=== PATIENT | female | born 1955 | race Caucasian/White ===

== ENCOUNTER 2020-10-06 14:25 | Outpatient (REF) | payer OTHER, SELFPAY ==
[2020-10-06 15:25] LABS: Anion Gap 11 (12-20); Blood Urea Nitrogen 15 mg/dL (9-16); Calcium 9.6 mg/dL (8.4-10.2); Carbon Dioxide 30 mmol/L (22-29); Chloride 96 mmol/L (96-108); Estimated Glomerular Filt Rate 56; Glucose Random 73 mg/dL (60-115); Potassium 4.4 mmol/L (3.3-5.1); Sodium 133 mmol/L (135-145)
[2020-10-06 16:08] LABS: Erythrocyte Sedimentation Rate 4 MM/HR (0-20)
== END 2020-10-06 14:26 | disposition home or self-care (01) ==
LOC: HO.LAB 14:25
PROVIDERS: PCP Student in an Organized Health Care Education/Training Program; Visit Provider Psychiatry & Neurology Neurology
DX: G43.109 Migraine with aura, not intractable, without status migrainosus (principal)
CPT/HCPCS: 36415; 80048; 85652

== ENCOUNTER 2020-10-20 10:45 | Outpatient (REF) | payer OTHER, SELFPAY ==
--- NOTE | ~2020-10-20 | MR_ITS ---
EXAMINATION: MR BRAIN WITHOUT AND WITH CONTRAST CLINICAL INFORMATION: 65-year-old with migraines with aura. COMPARISON: None TECHNIQUE: Multiplanar, multisequence MRI of the brain was obtained before and after the intravenous administration of 5.5 mL Gadavist. FINDINGS: Brain Volume: Normal for age. Structural: No malformations. Brain and Meninges: Scattered patchy zones of FLAIR/T2 signal hyperintensity are noted in the subcortical and deeper white matter of both cerebral hemispheres without restricted diffusion or abnormal enhancement, which are nonspecific findings but likely reflect zones of chronic microvascular ischemic white matter change. Probable chronic microvascular ischemic change also noted in the subinsular region on the left. DWI imaging demonstrates no restricted diffusion. Specifically, there is no evidence for recent or acute infarct. There are perivascular spaces at the level of the basal ganglia. Minimal chronic microvascular ischemic change in the subinsular white matter on the right. Nonspecific patchy subcortical FLAIR signal hyperintensity noted in the anterior left temporal lobe. No intracranial mass lesion, abnormal enhancement, space-occupying process, or mass effect. Gradient-echo imaging demonstrates no evidence for hemorrhage or hemosiderin staining. No extra-axial fluid collections. The cavernous sinuses enhance normally with a normal appearance to Meckel's caves and trigeminal fat pads. Ventricles and Subarachnoid Spaces: The ventricular system and subarachnoid spaces are consistent with mild volume loss consistent with the patient's age, without hydrocephalus. Mildly prominent perivascular spaces are noted in the cerebral white matter bilaterally. Orbital Structures: The visualized orbital structures are within normal limits within the limitations of the study. Vascular: Normal signal voids are noted in the visualized major intracranial vessels. There is minor mucosal thickening in the ethmoid complex. MR/MR head/brain wo/w con IMPRESSION: 1. Scattered probable chronic microvascular ischemic white matter changes in both cerebral hemispheres with no evidence for mass lesion, abnormal enhancement, space-occupying process, or mass effect. There is nonspecific patchy subcortical white matter T2 hyperintensity in the anterior left temporal lobe without mass effect of indeterminate etiology and clinical significance. 2. No evidence for hemorrhage or hemosiderin staining. 3. No evidence for hydrocephalus.
== END 2020-10-20 10:46 | disposition home or self-care (01) ==
LOC: HO.MRI 10:45
PROVIDERS: Visit Provider Psychiatry & Neurology Neurology
DX: G43.109 Migraine with aura, not intractable, without status migrainosus (principal)
CPT/HCPCS: 70553; A9585

== ENCOUNTER 2020-11-30 11:09 | Outpatient (REF) | payer OTHER, SELFPAY ==
--- NOTE | ~2020-11-30 | MM_ITS ---
EXAMINATION: MM SCREENING DIGITAL BREAST TOMOSYNTHESIS, BILATERAL CLINICAL INFORMATION: Screening. Asymptomatic. The lifetime risk of breast cancer based on the Tyrer-Cuzick Model is 12%. COMPARISON: Mammography: 07/24/2019, 07/18/2018, 06/23/2017 TECHNIQUE: Digital breast tomosynthesis is performed in both the craniocaudal and mediolateral oblique views along with computer-aided detection (CAD). Synthesized 2D images are generated from the tomosynthesis. FINDINGS: The breasts are extremely dense, which lowers the sensitivity of mammography (ACR BI-RADS breast composition Category d). There is fine fibronodular parenchymal pattern. The left breast is unremarkable with no interval mass or architectural abnormality. Neither breast shows abnormal calcifications. The axilla and skin contours are unremarkable. The right breast has a macrolobulated nodule posterior 9:00 position measuring approximately 1.0 x 0.8 cm representing change from prior studies. Margins are partly obscured by the background parenchymal attenuation. Finding may represent a cyst. Patient will be recalled for additional imaging. MM/MM tomosynthesis screening BI IMPRESSION: 1. Right: Nodule posterior 9:00 position 1.0 x 0.8 cm with partially obscured margins. 2. Left: No mammographic evidence of malignancy. ASSESSMENT: BI-RADS 0: Incomplete - Need Additional Imaging Evaluation RECOMMENDATION: 1. Targeted ultrasound right breast. 2. Radiology department staff will contact the patient for additional imaging. This patient's information was entered into a reminder system with a target due date for their next mammogram.
== END 2020-11-30 11:10 | disposition home or self-care (01) ==
LOC: HO.MAMMO 11:09
PROVIDERS: PCP Student in an Organized Health Care Education/Training Program; Visit Provider Student in an Organized Health Care Education/Training Program
DX: Z12.31 Encounter for screening mammogram for malignant neoplasm of breast (principal)
CPT/HCPCS: 77063; 77067

== ENCOUNTER 2020-12-01 15:22 | Outpatient (REF) | payer OTHER, SELFPAY ==
--- NOTE | ~2020-12-01 | XR_ITS ---
EXAMINATION: XR WRIST, RIGHT CLINICAL INFORMATION: Right wrist pain. COMPARISON: None TECHNIQUE: PA, lateral, and oblique views of the right wrist. FINDINGS: No acute fracture or dislocation. Mild joint space narrowing with small marginal osteophytes at the radiocarpal, triscaphe, and 1st carpometacarpal joints. No osseous erosion. No abnormal soft tissue calcification. 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
== END 2020-12-01 15:23 | disposition home or self-care (01) ==
LOC: HO.XRAY 15:22
PROVIDERS: PCP Student in an Organized Health Care Education/Training Program; Visit Provider Nurse Practitioner Primary Care
DX: M25.531 Pain in right wrist (principal)
CPT/HCPCS: 73110

== ENCOUNTER 2020-12-03 12:56 | Outpatient (REF) | payer OTHER, SELFPAY ==
--- NOTE | ~2020-12-03 | US_ITS ---
EXAMINATION: US DIAGNOSTIC ULTRASOUND BREAST, RIGHT CLINICAL INFORMATION: Right breast nodule. COMPARISON: November 30, 2020 and studies dating back to August 2010. TECHNIQUE: Ultrasound of the breast is performed with real-time mccullough scale imaging and color Doppler. FINDINGS: At the 8:00 position approximately 4 cm from nipple there is a simple appearing cyst with smooth back wall and increased through sound transmission measuring approximately 7 x 5 x 7 mm in size. There is no solid mass, architectural abnormality, duct ectasia, or edema in the soft tissue planes. Results are provided to the patient at time of visit by the technologist. US/US breast RT limited IMPRESSION: Right breast circumscribed mass corresponds to a simple cyst. ASSESSMENT: BI-RADS 2: Benign RECOMMENDATION: Routine annual mammography screening due in 12 months. This patient's information was entered into a reminder system with a target due date for their next mammogram.
== END 2020-12-03 12:57 | disposition home or self-care (01) ==
LOC: HO.MAMMO 12:56
PROVIDERS: Visit Provider Student in an Organized Health Care Education/Training Program
DX: N63.13 Unspecified lump in the right breast, lower outer quadrant (principal)
CPT/HCPCS: 76642

== ENCOUNTER 2021-01-14 15:45 | Outpatient (REF) | payer OTHER, SELFPAY ==
--- NOTE | ~2021-01-14 | US_ITS ---
EXAMINATION:US pelvic and transvaginal CLINICAL INFORMATION: Reason for Exam LEIOMYOMA OF UTERUS COMPARISON: Prior ultrasound 2017 LMP: Postmenopausal FINDINGS: UTERUS: The uterus is anteverted. Size: 6.1 x 2 x 3.5 cm. Uterine mass: There is no uterine mass. Cervix: Grossly unremarkable. Endometrium: There are 2 echogenic lesions within the endometrium measuring up to 3 mm and 4 mm, they could be endometrial calcification, polyp versus endometrial lesion. At least one of which present on prior study from 2017. endometrial thickness measures normal 0.2 cm there is a trace amount of free fluid in the endometrium. This is abnormal for patient's age and postmenopausal status. ADNEXA: Complex left adnexal mass 4.1 x 3.3 x 4.4 cm complex solid and cystic. Uncertain origin. Right ovary: Normal in size. Left ovary: Normal in size. Doppler exam: Normal Doppler flow identified in both ovaries. FREE FLUID: Trace amount of free fluid. OTHER FINDINGS: None US/US pelvic and transvaginal IMPRESSION: 1. Newly found complex left adnexal solid and cystic mass 4.4 cm, surgical evaluation and/or further investigation with pelvic MRI with contrast recommended. 2. Redemonstration of small echogenic lesion within the endometrium 3 mm and 4 mm could be calcified polyps versus others. Trace amount of free fluid in the endometrium. Abnormal for patient age and postmenopausal status. (Referring physician staff is being called, to be alerted of the above findings and recommendations.) CM
== END 2021-01-14 15:46 | disposition home or self-care (01) ==
LOC: HO.US 15:45
PROVIDERS: Visit Provider Student in an Organized Health Care Education/Training Program
DX: D25.0 Submucous leiomyoma of uterus (principal)
CPT/HCPCS: 76830; 76856

== ENCOUNTER → 2021-01-28 11:09 | Outpatient (BNVA) | payer OTHER, SELFPAY | PROVIDERS: PCP Student in an Organized Health Care Education/Training Program; Referring Provider Student in an Organized Health Care Education/Training Program; Visit Provider Internal Medicine Gastroenterology | DX: E55.9 Vitamin D deficiency, unspecified (principal); Z86.010 Personal history of colon polyps | CPT/HCPCS: 99212 ==

== ENCOUNTER 2021-02-17 08:30 | Outpatient (REF) | payer OTHER, SELFPAY ==
[2021-02-18 04:16] LABS: CT PCR NOT DETECTED (Not Detect.); NG PCR NOT DETECTED (Not Detect.)
== END 2021-02-17 08:31 | disposition home or self-care (01) ==
LOC: HO.LAB 08:30
PROVIDERS: PCP Student in an Organized Health Care Education/Training Program; Visit Provider Obstetrics & Gynecology
DX: N84.0 Polyp of corpus uteri (principal); N83.299 Other ovarian cyst, unspecified side
CPT/HCPCS: 87491; 87591; 99202

== ENCOUNTER 2021-03-31 13:26 | Outpatient (REF) | payer MEDICARE, SELFPAY ==
[2021-03-31 14:48] LABS: MANUAL DIFF FLAG NO
[2021-03-31 14:55] LABS: Basophils Absolute Auto 0.1 X10*3/uL (0.0-0.2); Eosinophils Absolute Auto 0.2 X10*3/uL (0.0-0.4); Eosinophils Percent Auto 2.9 % (0-4); Hematocrit 42.8 % (37-47); Hemoglobin 14.4 g/dl (12.0-16.0); Imm Gran Abs Auto 0.02 X10*3/uL (0.00-0.03); Imm Gran Pct Auto 0.3 % (0.0-0.4); Lymphocytes Absolute Auto 0.8 X10*3/uL (1.2-4.9); Mean Corpuscular HGB Conc 33.6 g/dl (31.0-35.0); Mean Corpuscular Hemoglobin 31.2 pg (27.0-33.0); Mean Corpuscular Volume 92.8 fL (80-98); Mean Platelet Volume 8.7 fL (9.4-12.3); Monocytes Absolute Auto 0.5 X10*3/uL (0.1-1.2); Monocytes Percent Auto 8.6 % (2-11); Neutrophils Absolute Auto 4.3 X10*3/uL (2.0-8.3); Neutrophils Percent Auto 74.2 % (45-73); Platelet Count 283 X10*3/uL (160-400); Red Blood Count 4.61 X10*6/uL (4.20-5.50); Red Cell Distribution Width 12.4 % (11.0-16.0); White Blood Count 5.8 X10*3/uL (4.8-10.8)
[2021-03-31 15:37] LABS: Vitamin D 25-OH Total 25.6 ng/mL (>30)
[2021-03-31 15:56] LABS: Folate 10.9 ng/mL (> or = 4.0); Vitamin B12 548 pg/mL (200-900)
[2021-04-01 11:47] LABS: CA-125 5 U/mL (<35)
== END 2021-03-31 13:27 | disposition home or self-care (01) ==
LOC: HO.LAB 13:26
PROVIDERS: Internal Medicine Gastroenterology; PCP Student in an Organized Health Care Education/Training Program; Visit Provider Obstetrics & Gynecology
DX: E55.9 Vitamin D deficiency, unspecified (principal); N83.299 Other ovarian cyst, unspecified side
CPT/HCPCS: 36415; 82306; 82607; 82746; 85025; 86304

== ENCOUNTER 2021-12-07 13:51 | Outpatient (REF) | payer OTHER, SELFPAY ==
--- NOTE | ~2021-12-07 | US_ITS ---
EXAMINATION: US PELVIS CLINICAL INFORMATION: Ovarian cyst COMPARISON: Previous pelvic ultrasound most recent January 2021 and pelvic MRI September 2016 TECHNIQUE: Ultrasound of the pelvis is performed using both transabdominal and transvaginal transducers along with Doppler. Transvaginal imaging is performed due to inadequate visualization transabdominally. FINDINGS: The uterus is anteverted and measures 4.5 x 1.9 x 2.9 cm in dimension. No focal uterine lesion is seen. There is a small amount of fluid in the endometrial cavity. Double thickness endometrium measures 2 mm. There are 2 hyperechoic areas in the endometrium questionable for small polyps measuring 3 x 2 x 4 mm and 3 x 4 mm. These do not appear appreciably changed. There are nabothian cysts in the cervix. The right ovary measures 3.3 x 2.1 x 3 cm. There is question of a 1 cm hypoechoic lesion in the right ovary. There is a 6.6 x 3.8 x 5.7 cm left adnexal lesion. This is hypoechoic and appears solid by ultrasound. This is similar in echogenicity to January 2021 exam. This is increased in size from 4.1 x 3.3 x 4.4 cm on most recent pelvic MRI September 2016 and pelvic ultrasound January 2021. There is no fluid in the pelvis. There is no fluid in the pelvis. US/US pelvic and transvaginal IMPRESSION: Interval increase in size in the left adnexal lesion now measuring 6.6 x 3.8 x 5.7 cm compared to 4.1 x 3.3 x 4.4 cm on prior exams from 2016 and 2020. Question small polyps in the endometrium similar to previous exams.
== END 2021-12-07 13:52 | disposition home or self-care (01) ==
LOC: HO.HMGCX 13:51
PROVIDERS: Visit Provider Obstetrics & Gynecology
DX: N83.299 Other ovarian cyst, unspecified side (principal)
CPT/HCPCS: 76830; 76856

== ENCOUNTER 2021-12-08 10:55 | Outpatient (REF) | payer OTHER, SELFPAY ==
--- NOTE | ~2021-12-08 | MM_ITS ---
EXAMINATION: MM SCREENING DIGITAL BREAST TOMOSYNTHESIS, BILATERAL CLINICAL INFORMATION: Screening. Asymptomatic. The lifetime risk of breast cancer based on the Tyrer-Cuzick Model is 14%. COMPARISON: Mammography: 11/30/2020, 07/24/2019, 07/18/2018, 06/23/2017 TECHNIQUE: Digital breast tomosynthesis is performed in both the craniocaudal and mediolateral oblique views along with computer-aided detection (CAD). Synthesized 2D images are generated from the tomosynthesis. FINDINGS: The breasts are extremely dense, which lowers the sensitivity of mammography (ACR BI-RADS breast composition Category d). Breast tissue composition borders on heterogeneously dense. There is fine fibronodular parenchymal pattern is similar to prior studies. No developing density. No architectural abnormality or abnormal calcifications. The axilla and skin contours are unremarkable. MM/MM tomosynthesis screening BI IMPRESSION: No mammographic evidence of malignancy. ASSESSMENT: BI-RADS 1: Negative RECOMMENDATION: Routine annual mammography screening. This patient's information was entered into a reminder system with a target due date for their next mammogram.
== END 2021-12-08 10:56 | disposition home or self-care (01) ==
LOC: HO.MAMMO 10:55
PROVIDERS: PCP Student in an Organized Health Care Education/Training Program; Visit Provider Student in an Organized Health Care Education/Training Program
DX: Z12.31 Encounter for screening mammogram for malignant neoplasm of breast (principal)
CPT/HCPCS: 77063; 77067

== ENCOUNTER 2021-12-09 11:35 | Outpatient (REF) | payer OTHER, SELFPAY ==
[2021-12-13 12:51] LABS: CA 125 New Method 4 U/mL (<35); CA-125 5 U/mL (<35)
== END 2021-12-09 11:36 | disposition home or self-care (01) ==
LOC: HO.LAB 11:35
PROVIDERS: PCP Student in an Organized Health Care Education/Training Program; Visit Provider Obstetrics & Gynecology
DX: N83.299 Other ovarian cyst, unspecified side (principal); N94.89 Other specified conditions associated with female genital organs and menstrual cycle
CPT/HCPCS: 36415; 86304

== ENCOUNTER → 2021-12-13 13:07 | Outpatient (BNVA) | payer OTHER, SELFPAY | PROVIDERS: Visit Provider Obstetrics & Gynecology | DX: Z13.89 Encounter for screening for other disorder (principal) | CPT/HCPCS: Q3014 ==

== ENCOUNTER → 2022-02-03 12:49 | Outpatient (BNVA) | payer OTHER, SELFPAY | PROVIDERS: PCP Student in an Organized Health Care Education/Training Program; Visit Provider Internal Medicine Gastroenterology | DX: E55.9 Vitamin D deficiency, unspecified (principal); K59.09 Other constipation; Z86.010 Personal history of colon polyps | CPT/HCPCS: 99212 ==

== ENCOUNTER 2022-04-13 14:14 | Inpatient (IN) | payer OTHER, SELFPAY ==
[2022-04-13] VITALS (8 sets, daily range): BP systolic 116–135; BP diastolic 68–91; PULSE 79–104; RESP 11–22; TEMP 35.9–37.2; O2SAT 90–100; BMI 19.7
--- NOTE | ~2022-04-13 | XR_ITS ---
EXAMINATION: XR CHEST CLINICAL INFORMATION: Shortness of breath COMPARISON: None TECHNIQUE: Frontal view of the chest was obtained. FINDINGS: Lungs clear. Heart and pulmonary vessels are normal. No congestive change. XR/XR chest 1V IMPRESSION: No active disease.
--- NOTE | 2022-04-13 14:24 | ECG_ITS ---
Test Reason : diff breathing Blood Pressure : / mmHG Vent. Rate : 103 BPM Atrial Rate : 103 BPM P-R Int : 130 ms QRS Dur : 080 ms QT Int : 330 ms P-R-T Axes : 076 070 -82 degrees QTc Int : 432 ms Sinus tachycardia Possible Left atrial enlargement ST & T wave abnormality, consider inferolateral ischemia Abnormal ECG When compared with ECG of 25-DEC-2015 18:24, T wave inversion now evident in Inferior leads Inverted T waves have replaced nonspecific T wave abnormality in Lateral leads Referred By: Generic ED Physician Electronically Signed By:STU MURGUIA
[2022-04-13 14:39] LABS: MANUAL DIFF FLAG NO
[2022-04-13 14:41] LABS: Basophils Absolute Auto 0.1 X10*3/uL (0.0-0.2); Basophils Percent Auto 1.3 % (0-2); Eosinophils Absolute Auto 0.5 X10*3/uL (0.0-0.4); Eosinophils Percent Auto 9.6 % (0-4); Hematocrit 44.1 % (37.0-47.0); Hemoglobin 14.9 g/dl (12.0-16.0); Imm Gran Abs Auto 0.01 X10*3/uL (0.00-0.03); Imm Gran Pct Auto 0.2 % (0.0-0.4); Lymphocytes Absolute Auto 0.9 X10*3/uL (1.2-4.9); Lymphocytes Percent Auto 19.1 % (20-40); Mean Corpuscular HGB Conc 33.8 g/dl (31.0-35.0); Mean Corpuscular Hemoglobin 30.6 pg (27.0-33.0); Mean Corpuscular Volume 90.6 fL (80.0-98.0); Mean Platelet Volume 8.6 fL (9.4-12.3); Monocytes Absolute Auto 0.4 X10*3/uL (0.1-1.2); Monocytes Percent Auto 9.3 % (2-11); Neutrophils Absolute Auto 2.9 x10*3/uL (2.0-8.3); Neutrophils Percent Auto 60.5 % (45-73); Platelet Count 240 X10*3/uL (160-400); Red Blood Count 4.87 X10*6/uL (4.20-5.50); Red Cell Distribution Width 12.9 % (11.0-16.0); White Blood Count 4.7 X10*3/uL (4.8-10.8)
--- NOTE | 2022-04-13 14:54 | ED.ASTHMA ---
HPI - Asthma General Chief Complaint: Asthma Stated Complaint: sob Time Seen by Provider: 04/13/22 14:39 Source: patient Mode of arrival: ambulatory History of Present Illness HPI Narrative: 66-year-old female with history of COPD, current everyday smoker, hypertension who presents with worsening shortness of breath for the past 2 weeks and now ?cannot stand it?. She denies any fever, chills, headache, dizziness, chest pain/palpitations, GI or symptoms and denies any lower extremity swelling but states that she has been using increased pillows at night for breathing and does not use home oxygen. She states her medications for her COPD are no longer working affectively and she suspects it is partially due to the heat. Related Data Home Medications Medication Instructions Recorded Confirmed simvastatin 10 mg tablet 10 mg PO BEDTIME 01/28/21 04/13/22 albuterol sulfate 90 mcg/actuation 2 puff PO Q4H PRN Shortness Of 02/03/22 04/13/22 aerosol inhaler Breath Or Wheezing amlodipine 5 mg tablet 5 mg PO DAILY 02/03/22 04/13/22 hydroxyzine HCl 10 mg tablet 10 mg PO DAILY PRN anxiety 02/03/22 04/13/22 loratadine 10 mg tablet 10 mg PO DAILY 02/03/22 04/13/22 fluticasone furoate 200 1 puff inhalation DAILY 04/13/22 04/13/22 mcg-vilanterol 25 mcg/dose inhalation powder (Breo Ellipta) Allergies Allergy/AdvReac Type Severity Reaction Status Date / Time No Known Allergies Allergy Verified 02/03/22 12:58 [No Known Allergies*] Review of Systems Review of Systems: Pertinent positives and negatives as stated in HPI 10 point review of systems is otherwise negative. [facility] Past Medical History Source: nursing notes reviewed Surgical History H/O total hysterectomy History of tubal ligation Hx of colonoscopy (~05/2019) Family History Family History Mother Breast CA Social History Social History Household Members: Spouse Alcohol intake: current Alcohol intake frequency: holidays/special occasions only Patient Tobacco Use Status: Current everyday Tobacco user Advance Directives: No Advance Directives Information Provided: No Physical Exam Vital Signs: Vital Signs: Last Vital Signs Temp 98.2 F 04/13/22 16:18 Pulse 86 04/13/22 16:18 Resp 15 04/13/22 16:18 BP 116/73 04/13/22 16:18 Pulse Ox 90 L 04/13/22 16:18 O2 Del Method 04/13/22 16:18 BMI result Body Mass Index 19.7 VITAL SIGNS: Reviewed. GENERAL: Chronically ill, cachectic, in no acute distress. HEAD: Normocephalic/atraumatic EYES: PERRLA, EOMI EARS: Ext canals without abnormality OROPHARYNX: no oral lesions noted, posterior pharynx clear NECK: Supple, no adenopathy LUNGS: Good inspiratory effort, with tachypnea noted, scattered rhonchi and coarse rales without obvious expiratory wheeze. SpO2<91> CARDIOVASCULAR: Regular rate and rhythm without noted murmurs, no JVD or lower extremity edema. ABDOMEN: Soft, non-tender, non-distended with bowel sounds. MUSCULOSKELETAL: No tenderness, deformities, or effusions noted on gross inspection. EXTREMITIES: No cyanosis, clubbing or edema. SKIN: Inspection of the skin reveals no rashes NEUROLOGIC: Alert and oriented x 4. Strength and sensation to light touch were grossly intact x 4. Course Course Course Narrative: 66-year-old female with increasing shortness of breath and dyspnea on exertion without obvious historical symptoms of cardiac ischemia on review of patient's EKG she does have noted ST depressions in the inferolateral leads which will be evaluated by BNP/troponin but may be secondary to underlying pulmonary disease. The comparison EKG is from 2016. Suspect acute COPD exacerbation and patient will receive albuterol, steroids, lactic acid/blood cultures as well as receiving antibiotics. Cannot rule out the possibility malignancy. Review of all investigations most consistent with COPD exacerbation, patient remains with significant dyspnea on exertion as well as noting that patient's oxygenation drops to 88% while in conversation. Informed patient of all results and the plan for admission. MDM - Asthma Lab Data Result diagrams: 04/13/22 15:05 04/13/22 14:32 Labs: Lab Results 04/13/22 04/13/22 04/13/22 Range/Units 14:32 14:32 14:32 WBC 4.7 L (4.8-10.8) X10*3/uL RBC 4.87 (4.20-5.50) X10*6/uL Hgb 14.9 (12.0-16.0) g/dl Hct 44.1 (37.0-47.0) % MCV 90.6 (80.0-98.0) fL MCH 30.6 (27.0-33.0) pg MCHC 33.8 (31.0-35.0) g/dl RDW 12.9 (11.0-16.0) % Plt Count 240 (160-400) X10*3/uL MPV 8.6 L (9.4-12.3) fL Immature Gran % (Auto) 0.2 (0.0-0.4) % Neut % (Auto) 60.5 (45-73) % Lymph % (Auto) 19.1 L (20-40) % [place] % (Auto) 9.3 (2-11) % Eos % (Auto) 9.6 H (0-4) % Baso % (Auto) 1.3 (0-2) % Lymph # (Auto) 0.9 L (1.2-4.9) X10*3/uL [place] # (Auto) 0.4 (0.1-1.2) X10*3/uL Eos # (Auto) 0.5 H (0.0-0.4) X10*3/uL Baso # (Auto) 0.1 (0.0-0.2) X10*3/uL Abs Immat Gran (auto) 0.01 (0.00-0.03) X10*3/uL Absolute Neuts (auto) 2.9 (2.0-8.3) x10*3/uL Absolute Nucleated RBC 0.000 (0.0-0.012) X10*3/uL Nucleated RBC % (auto) 0.0 (0.0-0.2) /100WBC D-Dimer High Sensitivty NG/ML VBG pH (7.32-7.43) VBG pCO2 mmHg VBG pO2 mmHg VBG HCO3 (22-26) mmol/L VBG O2 Saturation % VBG Base Excess mmol/L Sodium 140 (135-145) mmol/L Potassium 4.1 (3.3-5.1) mmol/L Chloride 103 (96-108) mmol/L Carbon Dioxide 26 (22-29) mmol/L Anion Gap 15 (12-20) BUN 22 H (9-16) mg/dL Creatinine 1.19 (0.5-1.4) mg/dL Estim Creat Clear Calc 39.5 Estimated GFR 45 Random Glucose 116 H (60-115) mg/dL Lactic Acid (0.5-2.0) mmol/L Calcium 9.9 (8.4-10.2) mg/dL Troponin I High Sens (<3.5-17.0) ng/L B-Natriuretic Peptide (<100) pg/mL COVID-19 (SIMON) Negative (Negative) COVID-19 Clin Com See Note 04/13/22 04/13/22 04/13/22 Range/Units 15:05 15:05 15:05 WBC 5.1 (4.8-10.8) X10*3/uL RBC 5.03 (4.20-5.50) X10*6/uL Hgb 15.2 (12.0-16.0) g/dl Hct 45.3 (37.0-47.0) % MCV 90.1 (80.0-98.0) fL MCH 30.2 (27.0-33.0) pg MCHC 33.6 (31.0-35.0) g/dl RDW 13.1 (11.0-16.0) % Plt Count 251 (160-400) X10*3/uL MPV 8.7 L (9.4-12.3) fL Immature Gran % (Auto) 0.2 (0.0-0.4) % Neut % (Auto) 60.9 (45-73) % Lymph % (Auto) 19.8 L (20-40) % [place] % (Auto) 8.3 (2-11) % Eos % (Auto) 9.6 H (0-4) % Baso % (Auto) 1.2 (0-2) % Lymph # (Auto) 1.0 L (1.2-4.9) X10*3/uL [place] # (Auto) 0.4 (0.1-1.2) X10*3/uL Eos # (Auto) 0.5 H (0.0-0.4) X10*3/uL Baso # (Auto) 0.1 (0.0-0.2) X10*3/uL Abs Immat Gran (auto) 0.01 (0.00-0.03) X10*3/uL Absolute Neuts (auto) 3.1 (2.0-8.3) x10*3/uL Absolute Nucleated RBC 0.000 (0.0-0.012) X10*3/uL Nucleated RBC % (auto) 0.0 (0.0-0.2) /100WBC D-Dimer High Sensitivty < 150 NG/ML VBG pH (7.32-7.43) VBG pCO2 mmHg VBG pO2 mmHg VBG HCO3 (22-26) mmol/L VBG O2 Saturation % VBG Base Excess mmol/L Sodium (135-145) mmol/L Potassium (3.3-5.1) mmol/L Chloride (96-108) mmol/L Carbon Dioxide (22-29) mmol/L Anion Gap (12-20) BUN (9-16) mg/dL Creatinine (0.5-1.4) mg/dL Estim Creat Clear Calc Estimated GFR Random Glucose (60-115) mg/dL Lactic Acid (0.5-2.0) mmol/L Calcium (8.4-10.2) mg/dL Troponin I High Sens < 3.5 (<3.5-17.0) ng/L B-Natriuretic Peptide 11 (<100) pg/mL COVID-19 ([facility]ON) (Negative) COVID-19 Clin Com 04/13/22 04/13/22 Range/Units 15:05 15:11 WBC (4.8-10.8) X10*3/uL RBC (4.20-5.50) X10*6/uL Hgb (12.0-16.0) g/dl Hct (37.0-47.0) % MCV (80.0-98.0) fL MCH (27.0-33.0) pg MCHC (31.0-35.0) g/dl RDW (11.0-16.0) % Plt Count (160-400) X10*3/uL MPV (9.4-12.3) fL Immature Gran % (Auto) (0.0-0.4) % Neut % (Auto) (45-73) % Lymph % (Auto) (20-40) % [place] % (Auto) (2-11) % Eos % (Auto) (0-4) % Baso % (Auto) (0-2) % Lymph # (Auto) (1.2-4.9) X10*3/uL [place] # (Auto) (0.1-1.2) X10*3/uL Eos # (Auto) (0.0-0.4) X10*3/uL Baso # (Auto) (0.0-0.2) X10*3/uL Abs Immat Gran (auto) (0.00-0.03) X10*3/uL Absolute Neuts (auto) (2.0-8.3) x10*3/uL Absolute Nucleated RBC (0.0-0.012) X10*3/uL Nucleated RBC % (auto) (0.0-0.2) /100WBC D-Dimer High Sensitivty NG/ML VBG pH 7.41 (7.32-7.43) VBG pCO2 38 mmHg VBG pO2 44 mmHg VBG HCO3 25 (22-26) mmol/L VBG O2 Saturation 73.0 % VBG Base Excess 0.6 mmol/L Sodium (135-145) mmol/L Potassium (3.3-5.1) mmol/L Chloride (96-108) mmol/L Carbon Dioxide (22-29) mmol/L Anion Gap (12-20) BUN (9-16) mg/dL Creatinine (0.5-1.4) mg/dL Estim Creat Clear Calc Estimated GFR Random Glucose (60-115) mg/dL Lactic Acid 1.6 (0.5-2.0) mmol/L Calcium (8.4-10.2) mg/dL Troponin I High Sens (<3.5-17.0) ng/L B-Natriuretic Peptide (<100) pg/mL COVID-19 ([facility]) (Negative) COVID-19 Clin Com ECG Data Attestation: I personally reviewed and interpreted this ECG as follows: Prior ECG tracings: available for review Interpretation: Sinus tachycardia, HR-103, no STEMI but noted ST and T-wave changes in the inferolateral distribution, FL/QRS/QTC are otherwise within normal limits. Critical Care Time Critical Care Time Critical Care Time: Yes Total Critical Care Time: 30 Attestation: I personally attest to this time spent taking care of the patient. Discharge Plan Discharge Clinical Impression: COPD exacerbation, Hypoxia Patient Disposition: Admitted As Inpatient
[2022-04-13 15:02] LABS: COVID-19 Test Negative (Negative); IDNOW Serial# 55D5AD1C
[2022-04-13 15:04] LABS: Anion Gap 15 (12-20); Blood Urea Nitrogen 22 mg/dL (9-16); Calcium 9.9 mg/dL (8.4-10.2); Carbon Dioxide 26 mmol/L (22-29); Chloride 103 mmol/L (96-108); Creatinine Clr Calc Pharmacy 39.5; Estimated Glomerular Filt Rate 45; Glucose Random 116 mg/dL (60-115); Potassium 4.1 mmol/L (3.3-5.1); Sodium 140 mmol/L (135-145)
[2022-04-13 15:14] LABS: Basophils Absolute Auto 0.1 X10*3/uL (0.0-0.2); Basophils Percent Auto 1.2 % (0-2); Eosinophils Absolute Auto 0.5 X10*3/uL (0.0-0.4); Eosinophils Percent Auto 9.6 % (0-4); Hematocrit 45.3 % (37.0-47.0); Hemoglobin 15.2 g/dl (12.0-16.0); Imm Gran Abs Auto 0.01 X10*3/uL (0.00-0.03); Imm Gran Pct Auto 0.2 % (0.0-0.4); Lymphocytes Percent Auto 19.8 % (20-40); MANUAL DIFF FLAG NO; Mean Corpuscular HGB Conc 33.6 g/dl (31.0-35.0); Mean Corpuscular Hemoglobin 30.2 pg (27.0-33.0); Mean Corpuscular Volume 90.1 fL (80.0-98.0); Mean Platelet Volume 8.7 fL (9.4-12.3); Monocytes Absolute Auto 0.4 X10*3/uL (0.1-1.2); Monocytes Percent Auto 8.3 % (2-11); Neutrophils Absolute Auto 3.1 x10*3/uL (2.0-8.3); Neutrophils Percent Auto 60.9 % (45-73); Platelet Count 251 X10*3/uL (160-400); Red Blood Count 5.03 X10*6/uL (4.20-5.50); Red Cell Distribution Width 13.1 % (11.0-16.0); White Blood Count 5.1 X10*3/uL (4.8-10.8)
[2022-04-13 15:16] LABS: VBG Base Excess 0.6 mmol/L; VBG HCO3 25 mmol/L (22-26); VBG pCO2 38 mmHg; VBG pH 7.41 (7.32-7.43); VBG pO2 44 mmHg
--- NOTE | 2022-04-13 15:21 | PC.NURSE ---
Pt denies SOB at rest or chest pain, resp at a rate of 12. Scattered Rhochi present in the lung. Stated she has an increased use of albuterol inhaler X 7DAYS.
[2022-04-13 15:22] LABS: D Dimer High Sensitivity < 150 NG/ML
[2022-04-13] MEDS: Albuterol Sulfate (0.083%) 2.5 MG/3 ML VIAL.NEB 5 MG INHALE (15:24)
[2022-04-13 15:25] LABS: Lactic Acid 1.6 mmol/L (0.5-2.0)
[2022-04-13] MEDS: methylPREDNISolone Sod Succ 125 MG/2 ML VIAL IVPUSH (15:31)
[2022-04-13 15:36] LABS: B Type Natriuretic Peptide 11 pg/mL (<100); Troponin-I High Sensitivity < 3.5 ng/L (<3.5-17.0)
[2022-04-13 15:50] LABS: Venous Blood Gas Refer to POC result
--- NOTE | 2022-04-13 16:32 | PC.NURSE ---
Pt ambulated independently to the bathroom, c/0 of SOB, denies dizziness,speaking in full sentences. Stat at 92% at rest on room air.
--- NOTE | 2022-04-13 16:35 | PC.NURSE ---
Pt o2 stat drops from 92 to 88 with ambulation and when talking.
--- NOTE | 2022-04-13 17:05 | PHA.MEDREC ---
Pharmacy Consult ? Medication Reconciliation Pharmacy has completed the medication reconciliation. Pt states that she has not yet started Linzess
--- NOTE | 2022-04-13 17:23 | PM.IMHP ---
History of Present Illness Date of Service: 04/13/22 Chief Complaint: sob 66F with pmh htn, copd, active smoker, hld presented with sob. Patient states that her shortness of breath has been ongoing for about 1 week. At baseline patient does have COPD and is on maintenance inhaler, but she really needs to use her short-acting, is able to tolerate moderate exercise, has a chronic cough with clear to white sputum. Over the past week patient has had decreased exercise tolerance, had to stop at the top of the stairs to catch her breath, has been having increased sputum production with yellowing of her sputum. She denies any chest pain, fever, chills. In ED noted to be hypoxic with saturations of 86% on room air. Chest x-ray unremarkable, BNP unremarkable, troponin negative. Review of Systems Review of Systems: Constitutional: Denies fever, denies Chills Eyes: denies blurry vision ENT: denies sore throat CVS: denies chest pain Respiratory: dyspnea GI: no abdominal pain : denies dysuria MSK: denies neck pain Skin: denies rash Neuro: denies specific motor weakness Psych: denies suicidal ideation Endocrine: denies heat/cold intolerance Hematologic: denies easy bleeding Allergy: denies hives PMFSH Family History Mother Breast CA Surgical History H/O total hysterectomy History of tubal ligation Hx of colonoscopy (~05/2019) Social History Household Members: Spouse Alcohol intake: current Alcohol intake frequency: holidays/special occasions only Patient Tobacco Use Status: Current everyday Tobacco user Advance Directives: No Advance Directives Information Provided: No Meds Allergies Allergy/AdvReac Type Severity Reaction Status Date / Time No Known Allergies Allergy Verified 02/03/22 12:58 [No Known Allergies*] Active Medications: Current Medications Albuterol/Ipratropium (Albuterol/Iprat 2.5/0.5mg 3 Ml Ampul.Neb) 3 ml INHALE RQ4H WHILE AWAKE [facility] Amlodipine Besylate (Amlodipine Besylate 5 Mg Tablet) 5 mg PO DAILY [facility]; Protocol Azithromycin (Azithromycin 500 Mg Tablet) 500 mg PO Q24H [facility] Fluticasone/Vilanterol (Fluticasone/Vilanterol 200/25 Blst.W.Dev) 1 puff INHALE DAILY [facility] Hydroxyzine HCl (Hydroxyzine Hcl 10 Mg Tablet) 10 mg PO DAILY PRN PRN Reason: anxiety Levofloxacin (Levaquin) 750 mg in 150 mls @ 100 mls/hr IV ONCE ONE Stop: 04/13/22 18:11 Loratadine (Loratadine 10 Mg Tablet) 10 mg PO DAILY [facility] Methylprednisolone Sodium Succinate (Methylprednisolone Sod Succ 40 Mg/Ml Vial) 40 mg IVPUSH Q12H [facility] Non-Formulary Medication (Simvastatin) 10 mg PO BEDTIME [facility] Pharmacy Consult (Consult Rx Perform Med Rec) 1 each MISCELLANE ONCE PRN PRN Reason: Consult order Home Medications Medication Instructions Recorded Confirmed Last Taken Type simvastatin 10 mg tablet 10 mg PO BEDTIME 01/28/21 04/13/22 04/12/22 History albuterol sulfate 90 mcg/actuation 2 puff PO Q4H PRN Shortness Of 02/03/22 04/13/22 04/13/22 History aerosol inhaler Breath Or Wheezing amlodipine 5 mg tablet 5 mg PO DAILY 02/03/22 04/13/22 04/13/22 History hydroxyzine HCl 10 mg tablet 10 mg PO DAILY PRN anxiety 02/03/22 04/13/22 04/11/22 History loratadine 10 mg tablet 10 mg PO DAILY 02/03/22 04/13/22 04/13/22 History fluticasone furoate 200 1 puff inhalation DAILY 04/13/22 04/13/22 04/13/22 History mcg-vilanterol 25 mcg/dose inhalation powder (Breo Ellipta) Physical Exam Vital Signs and Narrative: Vital Signs: Last Vital Signs Temp 98.2 F 04/13/22 16:18 Pulse 86 04/13/22 16:18 Resp 15 04/13/22 16:18 BP 116/73 04/13/22 16:18 Pulse Ox 90 L 04/13/22 16:18 O2 Del Method 04/13/22 16:18 BMI result Body Mass Index 19.7 General: somewhat dyspneic, some accessory muscle use HEENT: atraumatic Neck: normal to visual inspection CVS: S1, S2, RRR Resp: rales bilateral Chest: non tender GI: soft, non tender, non distended : no CVA tenderness Skin: no rashes Extremities: no edema Neuro: Oriented X3, grossly intact Psych: cooperative Results Labs CBC and Chem 7: 04/13/22 15:05 04/13/22 14:32 Labs: Laboratory Results - last 24 hr 04/13/22 04/13/22 04/13/22 14:32 14:32 14:32 MCV 90.6 MCH 30.6 MCHC 33.8 RDW 12.9 Plt Count 240 MPV 8.6 L Immature Gran % (Auto) 0.2 Neut % (Auto) 60.5 Lymph % (Auto) 19.1 L [place] % (Auto) 9.3 Eos % (Auto) 9.6 H Baso % (Auto) 1.3 Lymph # (Auto) 0.9 L [place] # (Auto) 0.4 Eos # (Auto) 0.5 H Baso # (Auto) 0.1 Abs Immat Gran (auto) 0.01 Absolute Neuts (auto) 2.9 Absolute Nucleated RBC 0.000 Nucleated RBC % (auto) 0.0 D-Dimer High Sensitivty VBG pH VBG pCO2 VBG pO2 VBG HCO3 VBG O2 Saturation VBG Base Excess Anion Gap 15 Estim Creat Clear Calc 39.5 Estimated GFR 45 Random Glucose 116 H Lactic Acid Calcium 9.9 B-Natriuretic Peptide COVID-19 (SIMON) Negative COVID-19 Clin Com See Note 04/13/22 04/13/22 04/13/22 15:05 15:05 15:05 MCV 90.1 MCH 30.2 MCHC 33.6 RDW 13.1 Plt Count 251 MPV 8.7 L Immature Gran % (Auto) 0.2 Neut % (Auto) 60.9 Lymph % (Auto) 19.8 L [place] % (Auto) 8.3 Eos % (Auto) 9.6 H Baso % (Auto) 1.2 Lymph # (Auto) 1.0 L [place] # (Auto) 0.4 Eos # (Auto) 0.5 H Baso # (Auto) 0.1 Abs Immat Gran (auto) 0.01 Absolute Neuts (auto) 3.1 Absolute Nucleated RBC 0.000 Nucleated RBC % (auto) 0.0 D-Dimer High Sensitivty < 150 VBG pH VBG pCO2 VBG pO2 VBG HCO3 VBG O2 Saturation VBG Base Excess Anion Gap Estim Creat Clear Calc Estimated GFR Random Glucose Lactic Acid Calcium B-Natriuretic Peptide 11 COVID-19 (SIMON) COVID-19 [employer] Com 04/13/22 04/13/22 15:05 15:11 MCV MCH MCHC RDW Plt Count MPV Immature Gran % (Auto) Neut % (Auto) Lymph % (Auto) [place] % (Auto) Eos % (Auto) Baso % (Auto) Lymph # (Auto) [place] # (Auto) Eos # (Auto) Baso # (Auto) Abs Immat Gran (auto) Absolute Neuts (auto) Absolute Nucleated RBC Nucleated RBC % (auto) D-Dimer High Sensitivty VBG pH 7.41 VBG pCO2 38 VBG pO2 44 VBG HCO3 25 VBG O2 Saturation 73.0 VBG Base Excess 0.6 Anion Gap Estim Creat Clear Calc Estimated GFR Random Glucose Lactic Acid 1.6 Calcium B-Natriuretic Peptide COVID-19 (SIMON) COVID-19 Clin Com Imaging Radiologist's Impressions: Impressions Chest X-Ray 04/13/22 14:42 IMPRESSION: No active disease. Assessment and Plan (1) COPD exacerbation: Status: Acute Plan 66F with pmh htn, hld, copd presented with sob Acute hypoxic respiratory failure secondary to COPD with acute decompensation IV steroids, bronchodilators, azithromycin Wean oxygen as tolerated may have additional chronic hypoxic respiratory failure component and will likely need home O2 testing prior to discharge Smoking cessation Hypertension Continue amlodipine Hyperlipidemia Continue statin DVT prophylaxis with Lovenox Full code Patient with significant decompensation of her COPD leading to acute hypoxia, therefore, expected to require at least 2 midnights in the hospital. Quality Stroke Does the patient have a stroke diagnosis?: No VTE Prior VTE?: No VTE Risk Level:: Medical - moderate - high VTE Device Contraindication: Treatment Not Indicated VTE Drug Contraindication: N/A - Med Ordered
[2022-04-13] MEDS: levoFLOXacin/D5W 750 MG/150 ML PIGGYBACK 100 MG IV (17:34)
[2022-04-13] MEDS: Albuterol Sulfate (0.083%) 2.5 MG/3 ML VIAL.NEB 10 MG INHALE (17:42)
[2022-04-13 18:42] LABS: Lactic Acid 1.3 mmol/L (0.5-2.0)
[2022-04-13] MEDS: Enoxaparin Sodium 40 MG/0.4 ML SYRINGE SUBCUT (19:44)
[2022-04-13] MEDS: Atorvastatin Calcium 10 MG TABLET PO (21:24)
[2022-04-13] MEDS: hydrOXYzine HCL 10 MG TABLET PO (21:43)
--- NOTE | 2022-04-13 21:44 | PC.NURSE ---
PT tearing and shaking in the arms. Stated ' I am unhappy and anxious because I have to spend the night in the hospital. Prn hydroxyzine administered.
[2022-04-14] VITALS (12 sets, daily range): BP systolic 96–128; BP diastolic 66–78; PULSE 79–104; RESP 15–19; TEMP 36.2–36.7; O2SAT 83–97
--- NOTE | 2022-04-14 02:34 | PC.NURSE ---
MD Murray to bedside for results and disposition. Pt aware of and agreeable to plan for dc home with referral to outpatient COVID clinic. RN to attempt to reach family regarding pending dc and tranportation needs.
--- NOTE | 2022-04-14 04:41 | PC.NURSE ---
New verbal orders received from Dr Goldberg for Melatonin 6mg with a request to enter it on his behalf.
--- NOTE | 2022-04-14 04:55 | PC.NURSE ---
RN to bedside to medicat pt per MAR with requested medication to assist with sleep. When the pt found out the medication was melatonin she declined adding that melatonin gives her nightmares and how she has slept in 3 days. Pt reports difficulty getting settled due to tv of neighbor. Hospitalist to be made aware and new orders obtained.
--- NOTE | 2022-04-14 05:39 | PC.NURSE ---
New orders with override permission received from Dr Goldberg for verbal order Benadryl 25mg to assist the pt with sleeping as requested as PO Melatonin was declined by patient. She reports melatonin causes nightmares.
[2022-04-14] MEDS: diphenhydrAMINE HCL 25 MG TABLET PO (05:46)
--- NOTE | 2022-04-14 05:48 | PC.NURSE ---
pt found resting comfortably in stretcher with eyes closed, respirations even and unlabored without distress. Pt was easily arousable to RN's presence at bedside at which time she was noted to have bilateral hand tremors which she reports is baseline due to her severe anxiety. Pt medicated with 25mg PO benadryl per MAR to assist with sleep as requested. Call root is in reach, NC remains for supplemental O2 with good effects and RN will continue to monitor. RN assisted pt with doffing mily gown as she reported having the gown on only added to her anxiety as she felt she was getting tangled up in the gown while attempting to get comfortable in the bed.
[2022-04-14 07:01] LABS: Hematocrit 38.8 % (37.0-47.0); Mean Corpuscular HGB Conc 33.5 g/dl (31.0-35.0); Mean Corpuscular Hemoglobin 30.4 pg (27.0-33.0); Mean Corpuscular Volume 90.9 fL (80.0-98.0); Mean Platelet Volume 9.1 fL (9.4-12.3); Platelet Count 209 X10*3/uL (160-400); Red Blood Count 4.27 X10*6/uL (4.20-5.50)
[2022-04-14 07:12] LABS: Anion Gap 15 (12-20); Blood Urea Nitrogen 29 mg/dL (9-16); Calcium 9.6 mg/dL (8.4-10.2); Carbon Dioxide 26 mmol/L (22-29); Chloride 101 mmol/L (96-108); Creatinine Clr Calc Pharmacy 29.6; Estimated Glomerular Filt Rate 32; Glucose Fasting 191 mg/dL (60-99); Potassium 4.5 mmol/L (3.3-5.1); Sodium 137 mmol/L (135-145)
[2022-04-14] MEDS: Albuterol/Iprat 2.5/0.5MG 3 ML AMPUL.NEB INHALE ×3 (07:58→20:50)
[2022-04-14] MEDS: methylPREDNISolone Sod Succ 40 MG/ML VIAL IVPUSH ×2 (10:15→21:15)
[2022-04-14] MEDS: Loratadine 10 MG TABLET PO (10:16)
[2022-04-14] MEDS: Azithromycin 500 MG TABLET PO (10:16)
[2022-04-14] MEDS: 0.9 % Sodium Chloride Flush 3 ML SYRINGE IVFLUSH ×3 (10:16→21:15)
[2022-04-14] MEDS: amLODIPine Besylate 5 MG TABLET PO (10:16)
--- NOTE | 2022-04-14 12:05 | PC.NURSE ---
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 Patient has IV and NC -2L.
--- NOTE | 2022-04-14 13:26 | MHC.CM.PN ---
Addendum entered by Cassy Howard 04/14/22 13:38: PATIENT REQUESTED CM CALL [facility] [phone] AND INFORM SRINIVAS RIBEIRO X [id number]. SHE IS INPATIENT AND NEEDS TO RESCHEDULE HER HOME VISIT THIS AFTERNOON. CM CALLED [facility], LEFT MESSAGE PROVIDING SRINIVAS WITH THE INFORMATION PATIENT REQUESTED THEY KNOW. Original Note: IMM ADDRESSED, WHITE COPY TO PATIENT/YELLOW TO CHART PATIENT LIVES ALONE IS INDEPENDENT HOME/COMMUNITY; STILL DRIVING DENIES USE OF DME OR RECEIVING HOME SERVICES HCP-EDUCATED, PATIENT DECLINED TO COMPLETE ONE OF THIS ONE PCP: CURTIS WALLIS PATIENT WILL DRIVE HERSELF HOME D/C PLAN: HOME SELF-CARE
--- NOTE | 2022-04-14 13:49 | HO.PM.IMPN ---
Subjective Subjective Date of Service: 04/14/22 Interval History: cc: sob interval history:improving Cardiovascular Cardiovascular: Reports no additional cardiovascular complaints Respiratory Respiratory: Reports no additional respiratory complaints Physical Exam Vital Signs: Vital Signs: Last Vital Signs Temp 98.1 F 04/14/22 12:02 Pulse 88 04/14/22 12:02 Resp 16 04/14/22 12:02 BP 128/76 04/14/22 12:02 Pulse Ox 95 04/14/22 12:02 O2 Del Method 04/14/22 12:02 O2 Flow Rate 2 04/14/22 12:02 BMI result Body Mass Index 19.7 General: AO X 3, no acute distress Resp: wheezes bilateral, no accessory muscles used CVS: S1,S2,RRR GI: soft, non tender, non distended Neuro: motor grossly intact, alert Psych: appropriate affect, appropriate insight Objective Data Active Medications Acetaminophen (Acetaminophen 325 Mg Tablet) 650 mg PO Q6H PRN PRN Reason: Pain, Mild (Pain Scale 1-3) Albuterol/Ipratropium (Albuterol/Iprat 2.5/0.5mg 3 Ml Ampul.Neb) 3 ml INHALE RQ4H WHILE AWAKE [facility] Last Admin: 04/14/22 11:49 Dose: 3 ml Documented By: EPI Amlodipine Besylate (Amlodipine Besylate 5 Mg Tablet) 5 mg PO DAILY [facility]; Protocol Last Admin: 04/14/22 10:16 Dose: 5 mg Documented By: GENA Atorvastatin Calcium (Atorvastatin Calcium 10 Mg Tablet) 10 mg PO BEDTIME [facility] Last Admin: 04/13/22 21:24 Dose: 10 mg Documented By: NELLI Azithromycin (Azithromycin 500 Mg Tablet) 500 mg PO Q24H [facility] Last Admin: 04/14/22 10:16 Dose: 500 mg Documented By: GENA Enoxaparin Sodium (Enoxaparin Sodium 40 Mg/0.4 Ml Syringe) 40 mg SUBCUT Q24H [facility] Last Admin: 04/13/22 19:44 Dose: 40 mg Documented By: NELLI Fluticasone/Vilanterol (Fluticasone/Vilanterol 200/25 Blst.W.Dev) 1 puff INHALE RDAILY [facility] Last Admin: 04/14/22 08:00 Dose: Not Given Documented By: EPI Non-Admin Reason: Med Not Available Hydroxyzine HCl (Hydroxyzine Hcl 10 Mg Tablet) 10 mg PO DAILY PRN PRN Reason: anxiety Last Admin: 04/13/22 21:43 Dose: 10 mg Documented By: FELISHAORALAlpa Loratadine (Loratadine 10 Mg Tablet) 10 mg PO DAILY [facility] Last Admin: 04/14/22 10:16 Dose: 10 mg Documented By: GENA Methylprednisolone Sodium Succinate (Methylprednisolone Sod Succ 40 Mg/Ml Vial) 40 mg IVPUSH Q12H [facility] Last Admin: 04/14/22 10:15 Dose: 40 mg Documented By: GENA Pharmacy Consult (Consult Rx Perform Med Rec) 1 each MISCELLANE ONCE PRN PRN Reason: Consult order Sodium Chloride (0.9 % Sodium Chloride Flush 3 Ml Syringe) 3 ml IVFLUSH QSHIFT [facility] Last Admin: 04/14/22 10:16 Dose: 3 ml Documented By: GENA Labs CBC & Chem 7: 04/14/22 06:33 04/14/22 06:33 Labs: Laboratory Results - last 24 hr 04/13/22 04/13/22 04/13/22 14:32 14:32 14:32 MCV 90.6 MCH 30.6 MCHC 33.8 RDW 12.9 Plt Count 240 MPV 8.6 L Immature Gran % (Auto) 0.2 Neut % (Auto) 60.5 Lymph % (Auto) 19.1 L [place] % (Auto) 9.3 Eos % (Auto) 9.6 H Baso % (Auto) 1.3 Lymph # (Auto) 0.9 L [place] # (Auto) 0.4 Eos # (Auto) 0.5 H Baso # (Auto) 0.1 Abs Immat Gran (auto) 0.01 Absolute Neuts (auto) 2.9 Absolute Nucleated RBC 0.000 Nucleated RBC % (auto) 0.0 D-Dimer High Sensitivty VBG pH VBG pCO2 VBG pO2 VBG HCO3 VBG O2 Saturation VBG Base Excess Anion Gap 15 Estim Creat Clear Calc 39.5 Estimated GFR 45 Random Glucose 116 H Fasting Glucose Lactic Acid Calcium 9.9 B-Natriuretic Peptide COVID-19 (SIMON) Negative COVID-19 Clin Com See Note 04/13/22 04/13/22 04/13/22 15:05 15:05 15:05 MCV 90.1 MCH 30.2 MCHC 33.6 RDW 13.1 Plt Count 251 MPV 8.7 L Immature Gran % (Auto) 0.2 Neut % (Auto) 60.9 Lymph % (Auto) 19.8 L [place] % (Auto) 8.3 Eos % (Auto) 9.6 H Baso % (Auto) 1.2 Lymph # (Auto) 1.0 L [place] # (Auto) 0.4 Eos # (Auto) 0.5 H Baso # (Auto) 0.1 Abs Immat Gran (auto) 0.01 Absolute Neuts (auto) 3.1 Absolute Nucleated RBC 0.000 Nucleated RBC % (auto) 0.0 D-Dimer High Sensitivty < 150 VBG pH VBG pCO2 VBG pO2 VBG HCO3 VBG O2 Saturation VBG Base Excess Anion Gap Estim Creat Clear Calc Estimated GFR Random Glucose Fasting Glucose Lactic Acid Calcium B-Natriuretic Peptide 11 COVID-19 (SIMON) COVID-19 Thirsty 04/13/22 04/13/22 04/13/22 15:05 15:11 18:22 MCV MCH MCHC RDW Plt Count MPV Immature Gran % (Auto) Neut % (Auto) Lymph % (Auto) [place] % (Auto) Eos % (Auto) Baso % (Auto) Lymph # (Auto) [place] # (Auto) Eos # (Auto) Baso # (Auto) Abs Immat Gran (auto) Absolute Neuts (auto) Absolute Nucleated RBC Nucleated RBC % (auto) D-Dimer High Sensitivty VBG pH 7.41 VBG pCO2 38 VBG pO2 44 VBG HCO3 25 VBG O2 Saturation 73.0 VBG Base Excess 0.6 Anion Gap Estim Creat Clear Calc Estimated GFR Random Glucose Fasting Glucose Lactic Acid 1.6 1.3 Calcium B-Natriuretic Peptide COVID-19 (SIMON) COVID-19 Thirsty 04/14/22 04/14/22 06:33 06:33 MCV 90.9 MCH 30.4 MCHC 33.5 RDW 13.0 Plt Count 209 MPV 9.1 L Immature Gran % (Auto) Neut % (Auto) Lymph % (Auto) [place] % (Auto) Eos % (Auto) Baso % (Auto) Lymph # (Auto) [place] # (Auto) Eos # (Auto) Baso # (Auto) Abs Immat Gran (auto) Absolute Neuts (auto) Absolute Nucleated RBC 0.000 Nucleated RBC % (auto) 0.0 D-Dimer High Sensitivty VBG pH VBG pCO2 VBG pO2 VBG HCO3 VBG O2 Saturation VBG Base Excess Anion Gap 15 Estim Creat Clear Calc 29.6 Estimated GFR 32 Random Glucose Fasting Glucose 191 H Lactic Acid Calcium 9.6 B-Natriuretic Peptide COVID-19 (SIMON) COVID-19 Clin Com Assessment and Plan (1) COPD exacerbation: Status: Acute Plan 66F with pmh htn, hld, copd presented with sob Acute hypoxic respiratory failure secondary to COPD with acute decompensation IV steroids, bronchodilators, azithromycin Wean oxygen as tolerated may have additional chronic hypoxic respiratory failure component and will likely need home O2 testing prior to discharge Smoking cessation XIOMARA likely prerenal monitor Hypertension Continue amlodipine Hyperlipidemia Continue statin DVT prophylaxis with Lovenox Full code reason for continued hospitalization:ongoing wheezing with hyoxia (does not use o2 at home) Quality Stroke Does the patient have a stroke diagnosis?: No VTE Prior VTE?: No VTE Risk Level:: Medical - moderate - high VTE Device Contraindication: Treatment Not Indicated VTE Drug Contraindication: N/A - Med Ordered
--- NOTE | 2022-04-14 15:25 | PC.NURSE ---
Patient's IV was flushed, patient was asleep and reported she was comfortable sleeping.
--- NOTE | 2022-04-14 16:49 | PC.NURSE ---
report given, pt ready to go to floor
[2022-04-14] MEDS: Enoxaparin Sodium 40 MG/0.4 ML SYRINGE SUBCUT (17:37)
[2022-04-14] MEDS: Atorvastatin Calcium 10 MG TABLET PO (21:15)
[2022-04-15] VITALS: RESP 20
[2022-04-15 03:52] VITALS: BP 116/68; PULSE 76; RESP 17; TEMP 36.6; O2SAT 99
[2022-04-15 06:17] LABS: Hematocrit 39.1 % (37.0-47.0); Hemoglobin 12.8 g/dl (12.0-16.0); Mean Corpuscular HGB Conc 32.7 g/dl (31.0-35.0); Mean Corpuscular Hemoglobin 30.2 pg (27.0-33.0); Mean Corpuscular Volume 92.2 fL (80.0-98.0); Mean Platelet Volume 9.2 fL (9.4-12.3); Platelet Count 208 X10*3/uL (160-400); Red Blood Count 4.24 X10*6/uL (4.20-5.50); Red Cell Distribution Width 13.2 % (11.0-16.0); White Blood Count 12.4 X10*3/uL (4.8-10.8)
[2022-04-15 06:50] LABS: Anion Gap 15 (12-20); Blood Urea Nitrogen 31 mg/dL (9-16); Calcium 9.4 mg/dL (8.4-10.2); Carbon Dioxide 24 mmol/L (22-29); Chloride 105 mmol/L (96-108); Creatinine Clr Calc Pharmacy 41.2; Estimated Glomerular Filt Rate 47; Glucose Fasting 217 mg/dL (60-99); Potassium 4.8 mmol/L (3.3-5.1); Sodium 139 mmol/L (135-145)
[2022-04-15 07:23] VITALS: BP 119/69; PULSE 73; RESP 18; TEMP 36.1; O2SAT 95
[2022-04-15] MEDS: Azithromycin 500 MG TABLET PO (07:59)
[2022-04-15] MEDS: Loratadine 10 MG TABLET PO (07:59)
[2022-04-15] MEDS: methylPREDNISolone Sod Succ 40 MG/ML VIAL IVPUSH (07:59)
[2022-04-15] MEDS: amLODIPine Besylate 5 MG TABLET PO (07:59)
[2022-04-15 08:00] VITALS: BP 119/69; PULSE 73; RESP 18; TEMP 36.1; O2SAT 95
[2022-04-15] MEDS: Albuterol/Iprat 2.5/0.5MG 3 ML AMPUL.NEB INHALE (08:03)
[2022-04-15] MEDS: Fluticasone/Vilanterol 200/25 BLST.W.DEV 1 PUFF INHALE (08:06)
[2022-04-15 08:07] VITALS: PULSE 68; RESP 18; O2SAT 96
[2022-04-15] MEDS: 0.9 % Sodium Chloride Flush 3 ML SYRINGE IVFLUSH (08:39)
[2022-04-15] MEDS: Nicotine 21 MG PATCH.TD24 TRANSDERMA (09:17)
--- NOTE | 2022-04-15 09:44 | P.DS_ITS ---
DS: Providers Provider Date of Service: 04/15/22 Date of admission: 04/13/22 17:22 Primary care physician: Anne Caballero MD DS: Diagnosis Discharge Diagnosis (1) COPD exacerbation: Status: Acute DS: Summary Hospital Course Hospital Course: from initial hpi: 66F with pmh htn, copd, active smoker, hld presented with sob.? Patient states that her shortness of breath has been ongoing for about 1 week.? At baseline patient does have COPD and is on maintenance inhaler, but she really needs to use her short-acting, is able to tolerate moderate exercise, has a chronic cough with clear to white sputum.? Over the past week patient has had decreased exercise tolerance, had to stop at the top of the stairs to catch her breath, has been having increased sputum production with yellowing of her sputum.? She denies any chest pain, fever, chills.? In ED noted to be hypoxic with saturations of 86% on room air.? Chest x-ray unremarkable, BNP unremarkable, troponin negative. hospital course: Patient was admitted for acute hypoxic respiratory due to COPD with acute decom pensation. She was treated with IV steroids, bronchodilators, azithromycin. Her shortness of breath significantly improved, she was weaned of oxygen and did not qualify for home o2. Course complicated by acute kidney injury which resolved by time of discharge. Was likely prerenal. Or hypertension she was continue amlodipine. For hyperlipidemia she was continued on statin. Patient is feeling much better will be discharged home. Time Spent with Patient Time attestation: Total time spent providing and/or coordinating discharge services: Discharge coordination time: Greater than 30 minutes Quality: Safe Use of Opioids Does Pt have an Active Cancer Diagnosis on the Problem List?: No Quality: Stroke Does the patient have a stroke diagnosis?: No Physical Exam Vital Signs: Vital Signs: Last Vital Signs Temp 97.0 F 04/15/22 08:00 Pulse 68 04/15/22 08:07 Resp 18 04/15/22 08:07 BP 119/69 04/15/22 08:00 Pulse Ox 95 04/15/22 08:00 O2 Del Method 04/15/22 08:00 O2 Flow Rate 2 04/15/22 08:00 BMI result Body Mass Index 19.7 General: AO X 3, no acute distress Resp: CTA bilateral, no accessory muscles used CVS: S1,S2,RRR GI: soft, non tender, non distended Neuro: motor grossly intact, alert Psych: appropriate affect, appropriate insight DS: Data Data Completed and Pending Labs on day of discharge: Laboratory Results - last 24 hr 04/15/22 04/15/22 05:23 05:23 WBC 12.4 H RBC 4.24 Hgb 12.8 Hct 39.1 MCV 92.2 MCH 30.2 MCHC 32.7 RDW 13.2 Plt Count 208 MPV 9.2 L Absolute Nucleated RBC 0.000 Nucleated RBC % (auto) 0.0 Sodium 139 Potassium 4.8 Chloride 105 Carbon Dioxide 24 Anion Gap 15 BUN 31 H Creatinine 1.14 Estim Creat Clear Calc 41.2 Estimated GFR 47 Fasting Glucose 217 H Calcium 9.4 Preliminary micro results at discharge 04/13/22 15:40 Blood Culture - Preliminary Blood - Venous No growth after 24 hours. 04/13/22 15:05 Blood Culture - Preliminary Blood - Venous No growth after 24 hours. Discharge Plan Discharge Patient Disposition: Home, Self-Care Discharge Diagnosis: copd Referrals: Anne Caballero MD [Primary Care Provider] - 1 Week Discharge Medications: New nicotine 21 mg/24 hr Patch 24 Hour 21 mg transdermal DAILY Qty: 14 0RF prednisone 20 mg tablet 40 mg PO DAILY Qty: 10 0RF Continued fluticasone furoate-vilanterol [Breo Ellipta] 200-25 mcg/dose blister with device 1 puff INHALATION DAILY simvastatin 10 mg tablet 10 mg PO BEDTIME amlodipine 5 mg tablet 5 mg PO DAILY hydroxyzine HCl 10 mg tablet 10 mg PO DAILY PRN (Reason: anxiety) albuterol sulfate 90 mcg/actuation HFA aerosol inhaler 2 puff PO Q4H PRN (Reason: Shortness Of Breath Or Wheezing) loratadine 10 mg tablet 10 mg PO DAILY Discharge Orders: Discharge Order (Routine); Ordered 04/15/22 Ordered By: Francisco Salgado Diet: Advance to usual diet Activity on Discharge: As tolerated Stand Alone Forms: Patient Portal Discharge page Care Plan Goals: recovery Health Concerns: copd Plan of Treatment: stop smoking, 5 days prednisone Assessment: see above
[2022-04-15 09:52] VITALS: PULSE 106; PULSE 93; O2SAT 93; O2SAT 96
--- NOTE | 2022-04-15 10:02 | MHC.CM.PN ---
PATIENT IS MEDICALLY CLEARED FOR DISCHARGE TODAY; DISCHARGE IS HOME SELF-CARE. PATIENT WILL ARRANGE TRANSPORTATION.
== END 2022-04-15 10:15 | disposition home or self-care (01) | DRG 190 ==
LOC: HO.ED 16:54 → HO.EDOVER 17:55 → HO.S3 04-14 16:17
PROVIDERS: Admitting Provider Internal Medicine; Emergency Provider Student in an Organized Health Care Education/Training Program; PCP Student in an Organized Health Care Education/Training Program; Visit Provider Internal Medicine
DX: J44.1 Chronic obstructive pulmonary disease with (acute) exacerbation (principal); J96.21 Acute and chronic respiratory failure with hypoxia; R64 Cachexia; Z68.1 Body mass index [BMI] 19.9 or less, adult; E78.5 Hyperlipidemia, unspecified; F17.210 Nicotine dependence, cigarettes, uncomplicated; Z71.6 Tobacco abuse counseling; Z20.822 Contact with and (suspected) exposure to COVID-19; Z79.51 Long term (current) use of inhaled steroids; Z79.899 Other long term (current) drug therapy
CPT/HCPCS: 36415; 71045; 80048; 82803; 83605; 83880; 84484; 85025; 85027; 85379; 87040; 87635; 93005; 94640; 99285; J1650; J1956; J2920; J2930; Q0163

== ENCOUNTER 2022-12-04 13:56 | Emergency (ER) | payer OTHER, SELFPAY ==
--- NOTE | ~2022-12-04 | XR_ITS ---
EXAMINATION: XR HIP, RIGHT CLINICAL INFORMATION: Pain COMPARISON: None available. TECHNIQUE: Two views of the right hip and one view of the pelvis. FINDINGS: Bone alignment is normal. No fracture or dislocation. There is soft tissue calcification adjacent to the right greater trochanter suggestive of calcific tendinitis or bursitis. There is mild osteoarthritis at the left hip joint. The right hip joint is normal. Bones of the pelvis are unremarkable. There may be constipation. XR/XR hip RT w [id number] IMPRESSION: Soft tissue calcification adjacent to the right greater trochanter suggestive of calcific tendinitis or bursitis. Mild osteoarthritis at the left hip joint.
--- NOTE | ~2022-12-04 | CT_ITS ---
EXAMINATION: CT HIP WITHOUT CONTRAST, RIGHT CLINICAL INFORMATION: Pain. Inability to ambulate. COMPARISON: Plain films earlier this evening TECHNIQUE: Multiple serial helical thin slice CT scan images through the right hip were obtained. Soft tissue and bony algorithms were evaluated. Coronal and sagittal reformatted images obtained on the technologist workstation. This CT examination was performed using dose optimization techniques as appropriate, variously including the following: *Automated exposure control *Adjustment of mA and/or kV according to patient size (this includes techniques or standardized protocols for targeted exams where dose is matched to indication/reason for exam; i.e. extremities or head) *Use of iterative reconstruction technique DLP: 165 mGy-cm FINDINGS: Femoral head is well-seated within the acetabulum. I do not appreciate any cortical disruption or trabecular irregularity to suggest underlying fracture to the right hip. Visualized right pelvic bones appear to be intact with mild degenerative changes in the superolateral acetabulum and visualized sacroiliac joint as well as the pubic symphysis. Visualized intrapelvic structures are grossly unremarkable. CT/CT hip RT wo IV con IMPRESSION: Mild degenerative changes but no acute fracture or dislocation.
[2022-12-04 14:40] VITALS: BP 153/99; PULSE 90; RESP 19; TEMP 36.6; O2SAT 95; BMI 19.5
--- NOTE | 2022-12-04 14:41 | ED_ITS ---
HPI - General Adult General Chief complaint: Extremity Injury, Lower <Sundeep Brown - Last Filed: 12/04/22 14:41> Stated complaint: R hip pain <Sundeep Brown - Last Filed: 12/04/22 14:41> Time Seen by Provider: 12/04/22 16:43 <Sundeep Brown - Last Filed: 12/04/22 14:41> History of Present Illness HPI narrative: Patient complains of right hip pain which began today, she was sleeping on the couch when she got up she felt sharp pain in her hip and was unable to bear weight on the hip, she denies any fall or injury, she has no numbness weakness or tingling, no back pain no other extremity pains no rash <MINGO Cruz - Last Filed: 12/04/22 18:58> Related Data Home medications: Home Medications Medication Instructions Recorded Confirmed simvastatin 10 mg tablet 10 mg PO BEDTIME 01/28/21 04/13/22 albuterol sulfate 90 mcg/actuation 2 puff PO Q4H PRN Shortness Of 02/03/22 04/13/22 aerosol inhaler Breath Or Wheezing amlodipine 5 mg tablet 5 mg PO DAILY 02/03/22 04/13/22 hydroxyzine HCl 10 mg tablet 10 mg PO DAILY PRN anxiety 02/03/22 04/13/22 loratadine 10 mg tablet 10 mg PO DAILY 02/03/22 04/13/22 fluticasone furoate 200 1 puff inhalation DAILY 04/13/22 04/13/22 mcg-vilanterol 25 mcg/dose inhalation powder (Breo Ellipta) Previous Rx's Medication Instructions Recorded nicotine 21 mg/24 hr daily 21 mg transdermal DAILY #14 ea 04/15/22 transdermal patch prednisone 20 mg tablet 40 mg PO DAILY #10 tabs 04/15/22 cyclobenzaprine 10 mg tablet 10 mg PO TID PRN muscle spasm 7 12/04/22 days #21 tabs naproxen 500 mg tablet 500 mg PO BID PRN pain 7 days #14 12/04/22 tabs prednisone 20 mg tablet 40 mg PO DAILY 5 days #10 tabs 12/04/22 <Sundeep Brown - Last Filed: 12/04/22 14:41> Allergies/adverse reactions: Allergies Allergy/AdvReac Type Severity Reaction Status Date / Time No Known Allergies Allergy Verified 12/04/22 14:40 [No Known Allergies*] <Sundeep Brown - Last Filed: 12/04/22 14:41> FOR[facility], LAT[facility] Past Medical History Source: nursing notes reviewed <MINGO Cruz - Last Filed: 12/04/22 18:58> Surgical History: Surgical History H/O total hysterectomy History of tubal ligation Hx of colonoscopy (~05/2019) <Sundeep Brown - Last Filed: 12/04/22 14:41> Family History Family History: Family History Mother Breast CA <Sundeep Brown - Last Filed: 12/04/22 14:41> Social History Social History: Social History Household Members: None and Other Household Members Other:: goes to significant other house 3x a week Housing: House Housing Other:: 2 family house Do you presently have visiting nurse or other home services: Yes (visiting nurse from [facility]) Alcohol intake: current Alcohol intake frequency: holidays/special occasions only Patient Tobacco Use Status: Current everyday Tobacco user Tobacco use type: Cigarette Cigarettes Per Day: 4 e-Cigarette/Vaping Use: Never Used Second Hand Smoke Exposure: Yes Advance Directives: No Advance Directives Information Provided: Yes service: No Current occupational status: retired <Sundeep Brown - Last Filed: 12/04/22 14:41> Physical Exam ED Vital Signs: Vital Signs - 24 hr 12/04/22 14:40 12/04/22 20:11 Temperature 98 F 98.0 F Pulse Rate 90 70 Respiratory Rate 19 16 Blood Pressure 153/99 H 150/91 H Pulse Oximetry 95 94 Oxygen Delivery Method Room Air Room Air BMI result Body Mass Index 19.5 <Sundeep Brown - Last Filed: 12/04/22 14:41> Vital Signs - 24 hr 12/04/22 14:40 12/04/22 20:11 Temperature 98 F 98.0 F Pulse Rate 90 70 Respiratory Rate 19 16 Blood Pressure 153/99 H 150/91 H Pulse Oximetry 95 94 Oxygen Delivery Method Room Air Room Air BMI result Body Mass Index 19.5 <MINGO Cruz - Last Filed: 12/04/22 18:58> Vital Signs - 24 hr 12/04/22 14:40 12/04/22 20:11 Temperature 98 F 98.0 F Pulse Rate 90 70 Respiratory Rate 19 16 Blood Pressure 153/99 H 150/91 H Pulse Oximetry 95 94 Oxygen Delivery Method Room Air Room Air BMI result Body Mass Index 19.5 <MINGO Mccormick - Last Filed: 12/05/22 01:53> General appearance is no distress Head is normocephalic atraumatic The neck is supple nontender The chest is clear to auscultation bilateral chest wall nontender Abdomen soft nontender Extremities the right hip is tender to the touch there is no redness or warmth of the skin, there is pain with movement of the hip joint, the patient cannot bear weight on the hip and is unable to ambulate Skin in the hip and pelvis area looks normal, it is neurovascular intact distal there is no redness or warmth over the joint Other extremities normal Neuro no focal motor sensory deficits <MINGO Cruz - Last Filed: 12/04/22 18:58> Course Course Course Narrative: 67-year-old female presents for evaluation of right hip pain. Pressure denies any known injury. Pain is worse with attempting to ambulate. Plan for x-ray the right hip <Sundeep Brown - Last Filed: 12/04/22 14:41> 67-year-old female presents for evaluation of right hip pain. Pressure denies any known injury. Pain is worse with attempting to ambulate. Plan for x-ray the right hip X-ray of the right hip did not show any fracture or dislocation, it did showed mild osteoarthritis of the hip joint, pelvis was unremarkable, there was a soft tissue calcification suggestive of calcific tendinitis or bursitis, no radiographic explanation for her inability to ambulate At 6 19:00 CT scan of right hip is ordered to confirm there is no occult fracture If no fracture seen on CT will try additional analgesic, right now patient is very comfortable in bed is not in any pain when she is not trying to put weight on the leg Case is signed out to physician assistant deluca at 19:00 <MINGO Cruz - Last Filed: 12/04/22 18:58> Medications Administered Discontinued Medications Generic Name Dose Route Start Last Admin Trade Name Freq PRN Reason Stop Dose Admin Acetaminophen 975 mg 12/04/22 17:53 12/04/22 17:58 Acetaminophen 325 Mg Tablet PO 12/04/22 17:54 975 mg ONCE ONE Administration Cyclobenzaprine HCl 10 mg 12/04/22 21:12 12/04/22 21:16 Cyclobenzaprine Hcl 10 Mg Tablet PO 12/04/22 21:13 10 mg ONCE ONE Administration Oxycodone HCl 5 mg 12/04/22 17:53 12/04/22 17:58 Oxycodone Hcl Immed Release 5 Mg Tablet PO 12/04/22 17:54 5 mg ONCE ONE Administration <Sundeep Brown - Last Filed: 12/04/22 14:41> Medications Administered Discontinued Medications Generic Name Dose Route Start Last Admin Trade Name Freq PRN Reason Stop Dose Admin Acetaminophen 975 mg 12/04/22 17:53 12/04/22 17:58 Acetaminophen 325 Mg Tablet PO 12/04/22 17:54 975 mg ONCE ONE Administration Cyclobenzaprine HCl 10 mg 12/04/22 21:12 12/04/22 21:16 Cyclobenzaprine Hcl 10 Mg Tablet PO 12/04/22 21:13 10 mg ONCE ONE Administration Oxycodone HCl 5 mg 12/04/22 17:53 12/04/22 17:58 Oxycodone Hcl Immed Release 5 Mg Tablet PO 12/04/22 17:54 5 mg ONCE ONE Administration <MINGO Cruz - Last Filed: 12/04/22 18:58> Medications Administered Discontinued Medications Generic Name Dose Route Start Last Admin Trade Name Freq PRN Reason Stop Dose Admin Acetaminophen 975 mg 12/04/22 17:53 12/04/22 17:58 Acetaminophen 325 Mg Tablet PO 12/04/22 17:54 975 mg ONCE ONE Administration Cyclobenzaprine HCl 10 mg 12/04/22 21:12 12/04/22 21:16 Cyclobenzaprine Hcl 10 Mg Tablet PO 12/04/22 21:13 10 mg ONCE ONE Administration Oxycodone HCl 5 mg 12/04/22 17:53 12/04/22 17:58 Oxycodone Hcl Immed Release 5 Mg Tablet PO 12/04/22 17:54 5 mg ONCE ONE Administration <MINGO Mccormick - Last Filed: 12/05/22 01:53> Medical Decision Making Medical Decision Making MDM Narrative: 67 yold female with right hip pain without any trauma. Xray negative for fracture. Patient had CT scan which shows just arthritis. negative for any neuro deficitis on exam. Right lower extremity motor/neuro/vascular exam intact. Negative for any redness of right lower extremity, ecchymosis, deformity, warmth, or coolness. Patient given muscle relaxer and feels better. Patient walked to the bathroom on her own. Not suspecting septic joint.Not suspecting DVT <MINGO Mccormick - Last Filed: 12/05/22 01:53> Differential Diagnosis Differential Diagnoses: The differential diagnosis associated with the presentation includes (hip fracture, hip discolocation, septic joint, bursisit, DVT.) <MINGO Mccormick - Last Filed: 12/05/22 01:53> Radiology Impression Discussion of test interpretation with radiology: I have reviewed the radiologist's reading. <MINGO Mccormick - Last Filed: 12/05/22 01:53> Prescription Management I considered prescription management with: Pain Medication <MINGO Mccormick - Last Filed: 12/05/22 01:53> Discharge Plan Discharge Clinical Impression: Acute hip pain <Sundeep Brown - Last Filed: 12/04/22 14:41> Patient Disposition: Home, Self-Care <Sundeep Brown - Last Filed: 12/04/22 14:41> Instructions: Arthralgia (ED), Hip Pain (ED) <Sundeep Brown - Last Filed: 12/04/22 14:41> Additional Instructions: Return to the ED for worsening pain, swelling of lower extremity, redness, blue black discoloration, inability to walk, swelling, calf pain, fever, chills, or any other concerning symptoms. Please follow up with PCP. <Sundeep Brown - Last Filed: 12/04/22 14:41> Prescriptions: New naproxen 500 mg tablet 500 mg PO BID PRN (Reason: pain) 7 Days Qty: 14 0RF prednisone 20 mg tablet 40 mg PO DAILY 5 Days Qty: 10 0RF cyclobenzaprine 10 mg tablet 10 mg PO TID PRN (Reason: muscle spasm) 7 Days Qty: 21 0RF Rx Instructions: side effect is drowsiness. Do not take at work or while driving. No Action fluticasone furoate-vilanterol [Breo Ellipta] 200-25 mcg/dose blister with device 1 puff INHALATION DAILY nicotine 21 mg/24 hr Patch 24 Hour 21 mg transdermal DAILY Qty: 14 0RF prednisone 20 mg tablet 40 mg PO DAILY Qty: 10 0RF simvastatin 10 mg tablet 10 mg PO BEDTIME amlodipine 5 mg tablet 5 mg PO DAILY hydroxyzine HCl 10 mg tablet 10 mg PO DAILY PRN (Reason: anxiety) albuterol sulfate 90 mcg/actuation HFA aerosol inhaler 2 puff PO Q4H PRN (Reason: Shortness Of Breath Or Wheezing) loratadine 10 mg tablet 10 mg PO DAILY <Sundeep Brown - Last Filed: 12/04/22 14:41> Interventions: ED Discharge Assessment Last Done: 12/04/22 21:48 <Sundeep Brown - Last Filed: 12/04/22 14:41> Discharge Date/Time: 12/04/22 21:48 <Sundeep Brown - Last Filed: 12/04/22 14:41> Print Language: Kazakh <Sundeep Brown - Last Filed: 12/04/22 14:41>
[2022-12-04] MEDS: Acetaminophen 325 MG TABLET 975 MG PO (17:58)
[2022-12-04] MEDS: oxyCODONE HCl Immed Release 5 MG TABLET PO (17:58)
--- NOTE | 2022-12-04 19:10 | PC.NURSE ---
pt currently in CT scan
--- NOTE | 2022-12-04 20:00 | PC.NURSE ---
took patients vitals temp 98.0, HR 70, O2 94, BP 150/91. Asked patient how she was feeling and about her pain. pt stated I feel nothing, sometimes it is good to feel nothing, I am high off the pills he gave me . patient has not been out of bed during visit. will continue to monitor.
[2022-12-04 20:11] VITALS: BP 150/91; PULSE 70; RESP 16; TEMP 36.7; O2SAT 94
[2022-12-04] MEDS: Cyclobenzaprine HCl 10 MG TABLET PO (21:16)
--- NOTE | 2022-12-04 21:23 | PC.NURSE ---
pt medicated per OCT for 03/23 hip pain- awaiting DC paperwork
== END 2022-12-04 21:48 | disposition home or self-care (01) ==
PROVIDERS: Emergency Provider Emergency Medicine Emergency Medical Services; PCP Student in an Organized Health Care Education/Training Program
DX: M25.551 Pain in right hip (principal); F17.210 Nicotine dependence, cigarettes, uncomplicated; Z71.6 Tobacco abuse counseling; Z79.899 Other long term (current) drug therapy
CPT/HCPCS: 73502; 73700; 99283

== ENCOUNTER 2022-12-14 11:03 | Outpatient (REF) | payer OTHER, SELFPAY ==
--- NOTE | ~2022-12-14 | MM_ITS ---
EXAMINATION: MM SCREENING DIGITAL BREAST TOMOSYNTHESIS, BILATERAL CLINICAL INFORMATION: Screening. Asymptomatic. The lifetime risk of breast cancer based on the Tyrer-Cuzick Model is 11.2%. COMPARISON: Mammography: December 08, 2021 and studies dating back to June 08, 2016 TECHNIQUE: Digital breast tomosynthesis is performed in both the craniocaudal and mediolateral oblique views along with computer-aided detection (CAD). Synthesized 2D images are generated from the tomosynthesis. FINDINGS: The breasts are extremely dense, which lowers the sensitivity of mammography (ACR BI-RADS breast composition Category d). There are no new significant masses, abnormal calcifications, or other abnormalities. MM/MM tomosynthesis screening BI IMPRESSION: No significant changes from prior exam. ASSESSMENT: BI-RADS 1: Negative RECOMMENDATION: Routine annual mammography screening. This patient's information was entered into a reminder system with a target due date for their next mammogram.
== END 2022-12-14 11:04 | disposition home or self-care (01) ==
LOC: HO.MAMMO 11:03
PROVIDERS: PCP Student in an Organized Health Care Education/Training Program; Visit Provider Student in an Organized Health Care Education/Training Program
DX: Z12.31 Encounter for screening mammogram for malignant neoplasm of breast (principal)
CPT/HCPCS: 77063; 77067

== ENCOUNTER 2023-01-10 11:52 | Outpatient (REF) | payer OTHER, SELFPAY ==
--- NOTE | ~2023-01-10 | US_ITS ---
EXAMINATION: US SCREENING ULTRASOUND BREAST, BILATERAL CLINICAL INFORMATION: Extremely dense breasts on mammography. Screening ultrasound. Tyrer-Cuzick Score 11%. COMPARISON: Mammography 12/14/2022, 11/30/2020, right breast ultrasound 12/03/2020 TECHNIQUE: Ultrasound is performed using grayscale imaging and color Doppler. Imaging is performed to include the four quadrants and retroareolar region. Both breasts are imaged. FINDINGS: Right breast: There is no suspicious finding by ultrasound. There is no solid mass or focal architectural abnormality. Again, there is simple cyst 8:00 position measuring approximately 0.8 x 0.6 cm. The cyst is anechoic with increased through-transmission of sound. Prior measurements are 1.0 x 0.8 cm. Left breast: There is no suspicious finding by ultrasound. There is no cystic or solid mass or focal architectural abnormality. US/US breast LT complete IMPRESSION: - No suspicious findings on screening breast ultrasound. - Simple cyst right breast 8:00 position, 0.8 cm. ASSESSMENT: BI-RADS 2: Benign RECOMMENDATION: Routine annual mammography screening. This patient's information was entered into a reminder system with a target due date for their next mammogram.
--- NOTE | ~2023-01-10 | US_ITS ---
EXAMINATION: US SCREENING ULTRASOUND BREAST, BILATERAL CLINICAL INFORMATION: Extremely dense breasts on mammography. Screening ultrasound. Tyrer-Cuzick Score 11%. COMPARISON: Mammography 12/14/2022, 11/30/2020, right breast ultrasound 12/03/2020 TECHNIQUE: Ultrasound is performed using grayscale imaging and color Doppler. Imaging is performed to include the four quadrants and retroareolar region. Both breasts are imaged. FINDINGS: Right breast: There is no suspicious finding by ultrasound. There is no solid mass or focal architectural abnormality. Again, there is simple cyst 8:00 position measuring approximately 0.8 x 0.6 cm. The cyst is anechoic with increased through-transmission of sound. Prior measurements are 1.0 x 0.8 cm. Left breast: There is no suspicious finding by ultrasound. There is no cystic or solid mass or focal architectural abnormality. US/US breast RT complete IMPRESSION: - No suspicious findings on screening breast ultrasound. - Simple cyst right breast 8:00 position, 0.8 cm. ASSESSMENT: BI-RADS 2: Benign RECOMMENDATION: Routine annual mammography screening. This patient's information was entered into a reminder system with a target due date for their next mammogram.
== END 2023-01-10 11:53 | disposition home or self-care (01) ==
LOC: HO.MAMMO 11:52
PROVIDERS: Visit Provider Student in an Organized Health Care Education/Training Program
DX: Z12.39 Encounter for other screening for malignant neoplasm of breast (principal); N64.89 Other specified disorders of breast
CPT/HCPCS: 76641

== ENCOUNTER 2023-04-21 11:00 | Outpatient (AMB) | payer OTHER, SELFPAY ==
--- NOTE | 2023-04-21 11:05 | A.OFFVIS_ITS ---
Intake Vital Signs 04/21/23 11:06 Height 5 ft 6 in Weight 124 lb BMI 20.0 BP 101/79 Blood Pressure Location Rt brachial Position Sitting Pulse 95 Intake Visit Reasons: 6 mnth follow up r/s from 08/04/22 Intake Note: Patient is present for follow up Reports some changes in medication. Medications for aching muscles Complaints: Thighs and hips discomfort Patient states she has been feeling really stiff and some discomfort in thighs and Hips had xrays done. Allergies No Known Allergies [No Known Allergies*] Allergy (Verified 04/21/23 11:22) Medication List - Last Reconciled 04/21/23 by Nils Huynh MD albuterol sulfate 90 mcg/actuation 2 puffs PO Q4H PRN amlodipine 5 mg PO DAILY cyclobenzaprine 10 mg PO TID PRN 7 days fluticasone furoate-vilanterol 200-25 mcg/dose (Breo Ellipta) 1 puff inhalation DAILY hydroxyzine HCl 10 mg PO DAILY PRN loratadine 10 mg PO DAILY naproxen 500 mg PO BID PRN 7 days nicotine 21 mg transdermal DAILY simvastatin 10 mg PO BEDTIME HPI 6 mnth follow up r/s from 08/04/22 HPI Details GI CLINIC VISIT FOR THIS 67-YEAR-OLD FEMALE WITH HYPERTENSION, HYPERCHOLESTEROLEMIA, MIGRAINE HEADACHES, COPD FOLLOWED IN GI FOR HISTORY OF COLON POLYPS AND RECTAL PROLAPSE ?ENDOSCOPIC STUDIES: 06/06/19 COLONOSCOPY SHOWED: ? Two polyps removed ? Moderate diverticulosis seen in the entire colon ? Moderate hemorrhoids on retroflexed exam. ? Plan: Repeat Colonoscopy in 3 yrs due to a history of large adenomatous polyps on her last colonoscopy. ?BIOPSIES SHOWED: ? A. Colon, cecum, polyp, polypectomy: Clinically polypoid colonic mucosa noted; ? negative for a hyperplastic or neoplastic process. ? B. Colon, sigmoid, polyp, polypectomy: Tubular adenoma. ? C. Rectum, biopsy: Ischemic colitis ? LETTER SENT ADVISING REPEAT COLONOSCOPY IN 3 YEARS. ?TODAY'S VISIT Patient states she has been feeling really stiff and some discomfort in thighs and Hips had xrays done. 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 Had 4 brothers and a Brother of a heartattack a month ago and she is still grieving Denies constipation recently Has not scheduled a colonoscopy yet since she felt anxious regarding the procedure and the prep. OK in scheduling it next year after the holidays PAST VIST: Had COVID infection and hospitalized for 5 days. She was constipated for 20 days after the surgery. Treated with multiple laxatives. Still having some problems. Had a small Bm today. Feels hungry all the time. Taking Sennakot 2 capsules at night and continuing to be constipated. Notes hemorrhoids and denies recent rectal bleeding - using hemorrhoidal wipes to stay clean. ? Denies recurrent rectal bleeding. ? Denies constipation or diarrhea. ? Was in the habit of squatting a lot which may be pre-disposing to rectal prolapse - has stopped doing that. ? Patient denies change in bowel habits, black stools or rectal bleeding ? Denies dysphagia, heartburn, nausea or vomiting, change in appetite or weight. Vaccinated for COVID. ?? ? Going to [employer] and won $1800 last month. ?PAST GI HISTORY BY REVIEW OF MEDICAL RECORDS: ? Pt was last seen on 06/14/19: ? Assessments ? 1. History of adenomatous polyp of colon - Z86.010 (Primary) ? 2. Diverticulosis large intestine w/o perforation or abscess w/o bleeding - K57.30 ? 63 YF with hypertension, high cholesterol, Migraine CHAN and COPD here for follow-up after colonoscopy to discuss results. 06/06/19 colonoscopy was performed and a dd diminutive tubular adenoma was removed. A 2 x 2 cms area of edmatous and friable mucosa was noted in the rectum - biopsies showed ischemic colitis likely related to rectal prolapse. Patient admitted to sitting frequently in a squatting position which may be predisposing to rectal prolapse - she will try to avoid squatting in the future. ? Treatment ? 1. History of adenomatous polyp of colon ? Notes: Repeat colonoscopy in 3 years. ? Follow Up ? 6 Months (Reason: FU of colon polyps and diverticulosis [facility] Surgical History H/O total hysterectomy Hx of colonoscopy (~05/2019) History of tubal ligation Family History Mother Breast CA Social History Household Members: None and Other Household Members Other:: goes to significant other house 3x a week Housing: House Housing Other:: 2 family house Do you presently have visiting nurse or other home services: Yes (visiting nurse from [facility]) Alcohol intake: current Alcohol intake frequency: holidays/special occasions only Patient Tobacco Use Status: Current everyday Tobacco user Tobacco use type: Cigarette Cigarettes Per Day: 4 e-Cigarette/Vaping Use: Never Used Second Hand Smoke Exposure: Yes service: No Current occupational status: retired Female Reproductive History Menstrual Age of Menarche: 10 Review of Systems Const All systems reviewed & are unremarkable except as noted in HPI and below Physical Exam Vital Signs: Last Vital Signs Pulse 95 04/21/23 11:06 BP 101/79 04/21/23 11:06 BMI result Body Mass Index 20.0 Const General: healthy appearing and no acute distress Nutritional Appearance: average body habitus Orientation/consciousness: patient oriented x3 Limitations: no limitations HEENT Head: Yes normal to inspection Ears: hearing grossly normal bilaterally Eyes Sclerae: sclerae normal Pupils: Equal, round and reactive pupils present Neck Neck: Yes normal visual inspection Chest Chest palpation & inspection: normal inspection of the chest Resp Effort & Inspection: normal respiratory effort Auscultation: clear to auscultation bilaterally Cardio Palpation: normal PMI Rate: regular rate Rhythm: regular rhythm Heart sounds: S1 normal heart sound present, S2 normal heart sound present and no murmurs GI Palpation (GI): Soft to palpation, nontender and No hepatosplenomegaly present Auscultation: normal bowel sounds Rectal Exam - Female: deferred Skin General skin exam: no rashes or lesions noted Neuro General: patient oriented x3, gait normal and moves all extremities Cranial nerves: Yes Equal, round and reactive pupils present Psych Appearance: grossly normal Mental Status: mental status grossly normal Assessment & Plan Assessment & Plan (1) Chronic constipation: Code(s): K59.09 - Other constipation (2) History of adenomatous polyp of colon: Comment: 06/06/19 colonoscopy was performed and a diminutive tubular adenoma was removed. A 2 x 2 cms area of edmatous and friable mucosa was noted in the rectum - biopsies showed ischemic colitis likely related to rectal prolapse. Repeat colonoscopy advised in 3 years (due in 03/2022) Code(s): Z86.010 - Personal history of colonic polyps Plan 67 YF with hypertension, high cholesterol, Migraine CHAN and COPD followed in GI for a history of colon polyps and rectal prolapse. 06/06/19 colonoscopy was performed and a diminutive tubular adenoma was removed. A 2 x 2 cms area of edmatous and friable mucosa was noted in the rectum - biopsies showed ischemic colitis likely related to rectal prolapse. Patient admitted to sitting frequently in a squatting position which may be predisposing to rectal prolapse - she now avoids squatting and denies recurrent rectal bleeding. 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 Had COVID infection and hospitalized for 5 days. She was constipated for 20 days after the surgery. Treated with multiple laxatives. Still having some problems. Had a small Bm today. Feels hungry all the time. Taking Sennakot 2 capsules at night and continuing to be constipated. Pt will be scheduled for a colonoscopy (FU of colon polyps) - Clenpiq prep for colonoscopy. 04/21/23 Denies constipation recently Has not scheduled a colonoscopy yet since she felt anxious regarding the procedure and the prep. OK in scheduling it next year after the holidays FU appt in 5 months after colonoscopy procedure Medications: New bisacodyl (Dulcolax (bisacodyl)) Take 2 tablets at 12 pm daily starting 5 days before colonoscopy appointment 10 mg (2 x 5 mg) PO ONCE 5 days 10 tabs 0RF colon prep polyethylene glycol 3350 (Miralax) Mix Miralax with 64 oz(8 cups) of Crystal light. Take 2 tablets of Dulcolax qt 12 pm. Wait to have your 1st bowel movement, then begin drinking Miralax. Drink a glass of Miralax every 10-15 minutes until you are finished. You will drink at least another 4 cups of clear liquid of your choice over the next 2 hours. Please drink as many clear liquids as possible You may have clear liquids up to four hours before your procedure 17 grams PO DAILY 1 day 238 grams 0RF colon prep Coding Level of Care Code Est Pt Level 4 (24238) Diagnoses Chronic constipation K59.09 History of adenomatous polyp of colon Z86.010 Time Spent (min) 24
[2023-04-21 11:06] VITALS: BP 101/79; PULSE 95
== END 2023-04-21 11:42 | disposition home or self-care (01) ==
PROVIDERS: Visit Provider Internal Medicine Gastroenterology
DX: K59.09 Other constipation (principal); Z86.010 Personal history of colon polyps
CPT/HCPCS: 99214

== ENCOUNTER → 2023-04-21 11:00 | Outpatient (BNVA) | payer OTHER, SELFPAY | PROVIDERS: Visit Provider Internal Medicine Gastroenterology | DX: K59.09 Other constipation (principal); Z86.010 Personal history of colon polyps | CPT/HCPCS: 99212 ==

== ENCOUNTER 2023-07-21 12:50 | Inpatient (IN) | payer OTHER, SELFPAY ==
--- NOTE | ~2023-07-21 | XR_ITS ---
EXAMINATION: XR CHEST CLINICAL INFORMATION: Pain and shortness of breath COMPARISON: Previous chest x-ray 2016 TECHNIQUE: 2 views of the chest were obtained. FINDINGS: The cardiac and mediastinal contours are normal. The lungs are well-inflated. The lungs are clear. No pleural effusion or pneumothorax. Scoliosis and degenerative changes of the spine. XR/XR chest 2V IMPRESSION: Well-inflated lungs suggestive of COPD. No evidence for acute disease in the chest.
[2023-07-21 12:57] VITALS: BP 116/86; PULSE 113; RESP 24; TEMP 37.1; O2SAT 90; BMI 19.4
--- NOTE | 2023-07-21 12:57 | ED_ITS ---
HPI - General Adult General Chief complaint: Dyspnea Stated complaint: Diff breathing Time Seen by Provider: 07/21/23 13:41 History of Present Illness HPI narrative: 67 y/o F patient; PMH COPD, HLD, HTN, everyday nictotine smoker; presents from home reporting three days of increased difficulty breathing associated with productive yellow phlegm coughing. Associated with a dull pain between her shoulder blades. She states recently she hasn't been able to sleep so has been smoking marijuana more frequently. She notes a history of prior admissions for COPD exacerbation, but denies a history of prior intubation or ICU admission. She otherwise denies: chest pain, nausea/vomiting, abdominal pain, congestion. Denies known sick contacts. Related Data Home Medications Medication Instructions Recorded Confirmed simvastatin 10 mg tablet 10 mg PO BEDTIME 01/28/21 04/21/23 albuterol sulfate 90 mcg/actuation 2 puff PO Q4H PRN Shortness Of 02/03/22 04/21/23 aerosol inhaler Breath Or Wheezing amlodipine 5 mg tablet 5 mg PO DAILY 02/03/22 04/21/23 hydroxyzine HCl 10 mg tablet 10 mg PO DAILY PRN anxiety 02/03/22 04/21/23 loratadine 10 mg tablet 10 mg PO DAILY 02/03/22 04/21/23 fluticasone furoate 200 1 puff inhalation DAILY 04/13/22 04/21/23 mcg-vilanterol 25 mcg/dose inhalation powder (Breo Ellipta) Previous Rx's Medication Instructions Recorded nicotine 21 mg/24 hr daily 21 mg transdermal DAILY #14 ea 04/15/22 transdermal patch cyclobenzaprine 10 mg tablet 10 mg PO TID PRN muscle spasm 7 12/04/22 days #21 tabs naproxen 500 mg tablet 500 mg PO BID PRN pain 7 days #14 12/04/22 tabs bisacodyl 5 mg tablet,delayed 10 mg (2 x 5 mg) PO ONCE colon 04/21/23 release (Dulcolax (bisacodyl)) prep 5 days #10 tabs polyethylene glycol 3350 17 17 g PO DAILY colon prep 1 day 04/21/23 gram/dose oral powder (Miralax) #238 grams Allergies Allergy/AdvReac Type Severity Reaction Status Date / Time No Known Allergies Allergy Verified 07/21/23 12:57 [No Known Allergies*] Review of Systems 2 Review of Systems: Yes all other systems are reviewed and are negative COUNT INCLUDES THE [facility] Past Medical History Attestation statement: The following information was validated with the patient. Source: old records reviewed Surgical History H/O total hysterectomy Hx of colonoscopy (~05/2019) History of tubal ligation Family History Family History Mother Breast CA Social History Social History Household Members: None and Other Household Members Other:: goes to significant other house 3x a week Housing: House Housing Other:: 2 family house Do you presently have visiting nurse or other home services: Yes (visiting nurse from [facility]) Alcohol intake: current Alcohol intake frequency: holidays/special occasions only Patient Tobacco Use Status: Current everyday Tobacco user Tobacco use type: Cigarette Cigarettes Per Day: 4 e-Cigarette/Vaping Use: Never Used Second Hand Smoke Exposure: Yes Advance Directives: Yes Advance Directives Information Provided: Yes Advance Directives on File: No service: No Current occupational status: retired Physical Exam ED Vital Signs: Vital Signs - 24 hr 07/21/23 12:57 07/21/23 13:07 07/21/23 13:55 Temperature 98.8 F 99.1 F Pulse Rate 113 H 89 Respiratory Rate 24 H 21 H Blood Pressure 116/86 145/93 H Pulse Oximetry 90 L 94 97 Oxygen Delivery Method Room Air Nasal Cannula Nasal Cannula Oxygen Flow Rate 4 4 07/21/23 14:20 Temperature Pulse Rate 89 Respiratory Rate 18 Blood Pressure Pulse Oximetry Oxygen Delivery Method Oxygen Flow Rate BMI result Body Mass Index 19.4 Patient is afebrile, tachycardic, mildly hypoxic improved on 2L NC. Const General: cooperative Orientation/consciousness: patient oriented x3 HENMT Head: Yes normal to inspection and Yes atraumatic Mouth: Normal oral and palatal mucosa present Throat: Yes posterior oropharynx normal Eyes General: appearance normal, both eyes and all related structures Pupils: Equal, round and reactive pupils present EOM: EOMs intact bilaterally Neck Neck: Yes normal visual inspection and Yes supple Chest Chest palpation & inspection: normal inspection of the chest and normal palpation of entire chest wall Resp Effort & Inspection: able to speak in complete sentences, audible wheezes, Actively coughing, respiratory distress and tachypneic Auscultation: wheezes Cardio Rate: regular rate Rhythm: regular rhythm Peripheral pulses: Peripheral pulses 2+ throughout GI Inspection: Yes normal to inspection and No distended Palpation (GI): Soft to palpation, not firm, nontender, no guarding and not rigid Neuro General: patient oriented x3 Cranial nerves: Yes Equal, round and reactive pupils present Course Course Course Narrative: RME- 67 year old female presents for evaluation of shortness of breath for the last 3 days. History of COPD. Faint wheezing on exam. Plan for labs, chest x- ray, and viral swabs Reevaluation(s) Reevaluation #1: Patient is mildly hypoxic, improved on 2L NC. Ordered for ED bronchodilator protocol, solu-medrol 125mg IV, Azithromycin 500mg IV. CXR consistent with hyperinflation without focal infiltrate or pneumothorax - read independently and then reviewed radiologist reading. Time: 14:15 Reevaluation #2: Patient re-evaluated multiple times. Improvement following x1 DuoNeb, pending further treatments as ED bronchodilator protocol. Patient remains on 2L NC. Plan: Admit to hospitalist for COPD exacerbation Condition: Stable Time: 15:15 Medications Administered Generic Name Dose Route Start Last Admin Trade Name Freq PRN Reason Stop Dose Admin Azithromycin 500 mg/ Sodium 250 mls @ 125 mls/hr 07/21/23 13:53 07/21/23 14:58 Chloride IV 07/21/23 15:52 125 mls/hr ONCE ONE Administration Discontinued Medications Generic Name Dose Route Start Last Admin Trade Name Freq PRN Reason Stop Dose Admin Albuterol Sulfate 2.5 mg/ 0 mg 07/21/23 14:09 07/21/23 14:20 Albuterol/Ipratropium 3 ml INHALE 07/21/23 14:10 2.5 dose ONCE ONE Administration Methylprednisolone Sodium Succinate 125 mg 07/21/23 13:53 07/21/23 14:58 Methylprednisolone Sod Succ 125 Mg/2 Ml Vial IVPUSH 07/21/23 13:54 125 mg ONCE ONE Administration Medical Decision Making Lab Data 07/21/23 13:23 07/21/23 13:23 Labs: Lab Results 07/21/23 07/21/23 Range/Units 13:23 14:14 WBC 8.4 (4.8-10.8) X10*3/uL RBC 5.31 D (4.20-5.50) X10*6/uL Hgb 16.1 H D (12.0-16.0) g/dl Hct 48.8 H D (37.0-47.0) % MCV 91.9 (80.0-98.0) fL MCH 30.3 (27.0-33.0) pg MCHC 33.0 (31.0-35.0) g/dl RDW 13.5 (11.0-16.0) % Plt Count 230 (160-400) X10*3/uL MPV 8.9 L (9.4-12.3) fL Immature Gran % (Auto) 0.2 (0.0-0.4) % Neut % (Auto) 79.3 H (45-73) % Lymph % (Auto) 7.5 L (20-40) % [place] % (Auto) 6.2 (2-11) % Eos % (Auto) 6.2 H (0-4) % Baso % (Auto) 0.6 (0-2) % Lymph # (Auto) 0.6 L (1.2-4.9) X10*3/uL [place] # (Auto) 0.5 (0.1-1.2) X10*3/uL Eos # (Auto) 0.5 H (0.0-0.4) X10*3/uL Baso # (Auto) 0.1 (0.0-0.2) X10*3/uL Abs Immat Gran (auto) 0.02 (0.00-0.03) X10*3/uL Absolute Neuts (auto) 6.7 (2.0-8.3) x10*3/uL Absolute Nucleated RBC 0.000 (0.0-0.012) X10*3/uL Nucleated RBC % (auto) 0.0 (0.0-0.2) /100WBC PT 11.6 (11.1-13.3) SEC INR 1.0 (0.9-1.1) APTT 35.4 (26.0-36.4) SEC VBG pH 7.36 (7.32-7.43) VBG pCO2 55 mmHg VBG pO2 32 mmHg VBG HCO3 31 H (22-26) mmol/L VBG O2 Saturation 49.0 % VBG Base Excess 4.8 mmol/L Sodium 139 (135-145) mmol/L Potassium 3.9 (3.3-5.1) mmol/L Chloride 102 (96-108) mmol/L Carbon Dioxide 29 (22-29) mmol/L Anion Gap 12 (12-20) BUN 15 (9-16) mg/dL Creatinine 1.03 (0.5-1.4) mg/dL Estim Creat Clear Calc 44.3 Estimated GFR 53 Random Glucose 105 (60-115) mg/dL Lactic Acid 1.1 (0.5-2.0) mmol/L Calcium 10.4 H D (8.4-10.2) mg/dL Total Bilirubin 1.1 H (0.0-1.0) mg/dL AST 17 (5-31) U/L ALT 9 (0-31) U/L Alkaline Phosphatase 78 (39-117) U/L Troponin I High Sens < 2.7 (<3.5-17.0) ng/L Total Protein 7.8 (6.5-8.0) g/dL Albumin 4.4 (3.5-5.0) g/dL Lipase 21 (8-78) U/L Influenza Type A (PCR) NEGATIVE (Negative) Influenza Type B (PCR) NEGATIVE (Negative) RSV RNA Qual (PCR) NEGATIVE (Negative) SARS-CoV-2 RNA (RT-PCR) NEGATIVE (Negative) Radiology Impression Discussion of test interpretation with radiology: I have reviewed the radiologist's reading. Radiologist Impression: EXAMINATION: XR CHEST CLINICAL INFORMATION: Pain and shortness of breath COMPARISON: Previous chest x-ray 2016 TECHNIQUE: 2 views of the chest were obtained. FINDINGS: The cardiac and mediastinal contours are normal. The lungs are well-inflated. The lungs are clear. No pleural effusion or pneumothorax. Scoliosis and degenerative changes of the spine. XR/XR chest 2V IMPRESSION: Well-inflated lungs suggestive of COPD. No evidence for acute disease in the chest. Discharge Plan Discharge Clinical Impression: COPD exacerbation Patient Disposition: Admitted As Inpatient Prescriptions: No Action fluticasone furoate-vilanterol [Breo Ellipta] 200-25 mcg/dose blister with device 1 puff INHALATION DAILY nicotine 21 mg/24 hr Patch 24 Hour 21 mg transdermal DAILY Qty: 14 0RF naproxen 500 mg tablet 500 mg PO BID PRN (Reason: pain) 7 Days Qty: 14 0RF cyclobenzaprine 10 mg tablet 10 mg PO TID PRN (Reason: muscle spasm) 7 Days Qty: 21 0RF Rx Instructions: side effect is drowsiness. Do not take at work or while driving. simvastatin 10 mg tablet 10 mg PO BEDTIME amlodipine 5 mg tablet 5 mg PO DAILY hydroxyzine HCl 10 mg tablet 10 mg PO DAILY PRN (Reason: anxiety) albuterol sulfate 90 mcg/actuation HFA aerosol inhaler 2 puff PO Q4H PRN (Reason: Shortness Of Breath Or Wheezing) loratadine 10 mg tablet 10 mg PO DAILY bisacodyl [Dulcolax (bisacodyl)] 5 mg tablet,delayed release (DR/EC) 10 mg PO ONCE 5 Days Qty: 10 0RF Rx Instructions: Take 2 tablets at 12 pm daily starting 5 days before colonoscopy appointment polyethylene glycol 3350 [Miralax] 17 gram/dose powder 17 g PO DAILY 1 Days Qty: 238 0RF Rx Instructions: Mix Miralax with 64 oz(8 cups) of Crystal light. Take 2 tablets of Dulcolax qt 12 pm. Wait to have your 1st bowel movement, then begin drinking Miralax. Drink a glass of Miralax every 10-15 minutes until you are finished. You will drink at least another 4 cups of clear liquid of your choice over the next 2 hours. Please drink as many clear liquids as possible You may have clear liquids up to four hours before your procedure
--- NOTE | 2023-07-21 12:59 | ECG_ITS ---
Test Reason : dyspnea Blood Pressure : / mmHG Vent. Rate : 103 BPM Atrial Rate : 103 BPM P-R Int : 126 ms QRS Dur : 080 ms QT Int : 330 ms P-R-T Axes : 079 074 080 degrees QTc Int : 432 ms Sinus tachycardia Biatrial enlargement Nonspecific T wave abnormality Abnormal ECG When compared with ECG of 13-APR-2022 14:25, T wave inversion no longer evident in Inferior leads Referred By: Sundeep Brown Electronically Signed By:CHRIS ROSA
[2023-07-21 13:07] VITALS: O2SAT 94
[2023-07-21 13:31] LABS: MANUAL DIFF FLAG NO
[2023-07-21 13:33] LABS: Basophils Absolute Auto 0.1 X10*3/uL (0.0-0.2); Basophils Percent Auto 0.6 % (0-2); Eosinophils Absolute Auto 0.5 X10*3/uL (0.0-0.4); Eosinophils Percent Auto 6.2 % (0-4); Hematocrit 48.8 % (37.0-47.0); Hemoglobin 16.1 g/dl (12.0-16.0); Imm Gran Abs Auto 0.02 X10*3/uL (0.00-0.03); Imm Gran Pct Auto 0.2 % (0.0-0.4); Lymphocytes Absolute Auto 0.6 X10*3/uL (1.2-4.9); Lymphocytes Percent Auto 7.5 % (20-40); Mean Corpuscular Hemoglobin 30.3 pg (27.0-33.0); Mean Corpuscular Volume 91.9 fL (80.0-98.0); Mean Platelet Volume 8.9 fL (9.4-12.3); Monocytes Absolute Auto 0.5 X10*3/uL (0.1-1.2); Monocytes Percent Auto 6.2 % (2-11); Neutrophils Absolute Auto 6.7 x10*3/uL (2.0-8.3); Neutrophils Percent Auto 79.3 % (45-73); Platelet Count 230 X10*3/uL (160-400); Red Blood Count 5.31 X10*6/uL (4.20-5.50); Red Cell Distribution Width 13.5 % (11.0-16.0); White Blood Count 8.4 X10*3/uL (4.8-10.8)
[2023-07-21 13:39] LABS: Prothrombin Time 11.6 SEC (11.1-13.3)
[2023-07-21 13:42] LABS: Lactic Acid 1.1 mmol/L (0.5-2.0); Partial Thromboplastin Time 35.4 SEC (26.0-36.4)
[2023-07-21 13:47] LABS: Alanine Aminotransferase 9 U/L (0-31); Albumin Level 4.4 g/dL (3.5-5.0); Alkaline Phosphatase 78 U/L (39-117); Anion Gap 12 (12-20); Aspartate Amino Transferase 17 U/L (5-31); Bilirubin Total 1.1 mg/dL (0.0-1.0); Blood Urea Nitrogen 15 mg/dL (9-16); Calcium 10.4 mg/dL (8.4-10.2); Carbon Dioxide 29 mmol/L (22-29); Chloride 102 mmol/L (96-108); Creatinine Clr Calc Pharmacy 44.3; Estimated Glomerular Filt Rate 53; Glucose Random 105 mg/dL (60-115); Lipase 21 U/L (8-78); Potassium 3.9 mmol/L (3.3-5.1); Sodium 139 mmol/L (135-145); Total Protein 7.8 g/dL (6.5-8.0)
[2023-07-21 13:55] VITALS: BP 145/93; PULSE 89; RESP 21; TEMP 37.3; O2SAT 97
[2023-07-21 13:55] LABS: Troponin-I High Sensitivity < 2.7 ng/L (<3.5-17.0)
[2023-07-21 14:11] LABS: Influenza A PCR NEGATIVE (Negative); Influenza B PCR NEGATIVE (Negative); Resp Syncy Virus RNA Qual PCR NEGATIVE (Negative); SARS COV2 PCR INHOUSE NEGATIVE (Negative)
[2023-07-21 14:17] LABS: Venous Blood Gas Refer to POC result
[2023-07-21 14:19] LABS: VBG Base Excess 4.8 mmol/L; VBG HCO3 31 mmol/L (22-26); VBG pCO2 55 mmHg; VBG pH 7.36 (7.32-7.43); VBG pO2 32 mmHg
[2023-07-21 14:20] VITALS: PULSE 89; RESP 18; O2SAT 97
[2023-07-21] MEDS: Albuterol Sulfate 2.5 MG, Albuterol/Iprat 2.5/0.5MG 3 ML 3 ML INHALE (14:20)
[2023-07-21] MEDS: Azithromycin 500 MG in 0.9 % Sodium Chloride 250 ML 125 MG IV (14:58)
[2023-07-21] MEDS: methylPREDNISolone Sod Succ 125 MG/2 ML VIAL IVPUSH (14:58)
--- NOTE | 2023-07-21 15:32 | PHA.MEDREC ---
Pharmacy Consult ? Medication Reconciliation Pharmacy has completed the medication reconciliation. Patient reported medications. Reports she not longer takes hydroxyzine because it cause headache in the morning and stated the she takes amitriptyline 10 mg. There is no recently claim history for amitriptyline. Sarah Carroll, PharmD
--- NOTE | 2023-07-21 16:01 | PM.IMHP ---
History of Present Illness Date of Service: 07/21/23 Attending physician on admission: Francisco Salgado Chief Complaint: SOB Pt is a 67-year-old female with a PMH significant for?HTN, HLD, COPD, and an active smoker who presents to the ED with?3 days of increasing shortness of breath and difficulty breathing. Patient states she cannot catch her breath when going up stairs or doing any kind of daily activity such as making her bed. Has chronic cough, worsened the past few days and now productive of yellowish sputum. Currently smokes 3-4 cigarettes daily, not on home O2. Denies chest pain/pressure, palpitations. No fever, chills, nausea, vomiting, abdominal pain. No changes to bowel or bladder habits. While talking, patient noted to desat as low as 86% on RA. Of note, patient was last hospitalized 3 months earlier on 04/13-04/15 for similar symptoms. Patient was then tested but failed to qualify for home O2. In the ED pt was afebrile, but had tachycardia to 113 and tachypnea to 20, and hypertensive as high as 145/93. Labs were grossly unremarkable. Lactic acid WNL at 1.1. Troponin negative. CXR showed evidence of COPD but no evidence for acute disease in the chest. EKG demonstrated sinus tachycardia of 1 of 3 with no evidence of significant ST elevations or depressions. Pt was treated with DuoNebs, Solu-Medrol, and azithromycin. Pt will be admitted to the hospital for treatment of acute hypoxic respiratory failure in the setting of COPD exacerbation. Review of Systems Review of Systems: Increasing shortness of breath, REILLY Productive cough Fatigue Denies chest pain/pressure, palpitations No fever, chills, nausea, vomiting, abdominal pain No changes to bowel or bladder habits PMFSH Family History Mother Breast CA Surgical History H/O total hysterectomy Hx of colonoscopy (~05/2019) History of tubal ligation Social History Household Members: None and Other Household Members Other:: goes to significant other house 3x a week Housing: House Housing Other:: 2 family house Do you presently have visiting nurse or other home services: Yes (visiting nurse from [facility]) Alcohol intake: current Alcohol intake frequency: does not drink Patient Tobacco Use Status: Current everyday Tobacco user Tobacco use type: Cigarette Cigarettes Per Day: 4 Smoked in Last 30 Days: No e-Cigarette/Vaping Use: Never Used Second Hand Smoke Exposure: Yes Use of substances other than those prescribed or required for medical reasons: No Advance Directives: Yes Advance Directives Information Provided: Yes Advance Directives on File: No service: No Current occupational status: retired Meds Allergies Allergy/AdvReac Type Severity Reaction Status Date / Time No Known Allergies Allergy Verified 07/21/23 12:57 [No Known Allergies*] Home Medications Medication Instructions Recorded Confirmed Last Taken Type simvastatin 10 mg tablet 10 mg PO DAILY 01/28/21 07/21/23 07/20/23 History albuterol sulfate 90 mcg/actuation 2 puff PO Q4H PRN Shortness Of 02/03/22 07/21/23 07/20/23 History aerosol inhaler Breath Or Wheezing amlodipine 5 mg tablet 5 mg PO DAILY 02/03/22 07/21/23 07/20/23 History fluticasone furoate 200 1 puff inhalation DAILY 04/13/22 07/21/23 07/20/23 History mcg-vilanterol 25 mcg/dose inhalation powder (Breo Ellipta) albuterol sulfate 1.25 mg/3 mL 1.25 mg inhalation Q4H PRN Wheezing 07/21/23 07/21/23 07/20/23 History solution for nebulization amitriptyline 10 mg tablet 10 mg PO BEDTIME PRN Insomnia 07/21/23 07/21/23 Unknown History cetirizine 10 mg tablet 10 mg PO QAM 07/21/23 07/21/23 07/20/23 History cholecalciferol (vitamin D3) 25 25 mcg PO QAM 07/21/23 07/21/23 07/20/23 History mcg (1,000 unit) capsule (Vitamin D3) nicotine 21 mg/24 hr daily 21 mg transdermal DAILY PRN 07/21/23 07/21/23 Unknown History transdermal patch Nicotine Cravings vitamin K2 100 mcg capsule 100 mcg PO DAILY 07/21/23 07/21/23 07/20/23 History Physical Exam Vital Signs and Narrative: Vital Signs: Last Vital Signs Temp 99.1 F 07/21/23 13:55 Pulse 89 07/21/23 14:20 Resp 18 07/21/23 14:20 BP 145/93 H 07/21/23 13:55 Pulse Ox 97 07/21/23 13:55 O2 Del Method Nasal Cannula 07/21/23 13:55 O2 Flow Rate 4 07/21/23 13:55 BMI result Body Mass Index 19.4 General: AOx3, no acute distress Resp: Diffuse expiratory wheezing and rhonchi bilaterally. Speaking in full sentences, no increased work of breathing. CVS: S1, S2, RRR. GI: +BS, NT, no distention Skin: Warm, dry Neuro: Cranial nerves II-XII grossly intact bilaterally. Motor grossly intact bilaterally Extremities: No edema Psych: Appropriate affect and insight Results Labs 07/21/23 13:23 07/21/23 13:23 Labs: Laboratory Results - last 24 hr 07/21/23 07/21/23 13:23 14:14 MCV 91.9 MCH 30.3 MCHC 33.0 RDW 13.5 Plt Count 230 MPV 8.9 L Immature Gran % (Auto) 0.2 Neut % (Auto) 79.3 H Lymph % (Auto) 7.5 L [place] % (Auto) 6.2 Eos % (Auto) 6.2 H Baso % (Auto) 0.6 Lymph # (Auto) 0.6 L [place] # (Auto) 0.5 Eos # (Auto) 0.5 H Baso # (Auto) 0.1 Abs Immat Gran (auto) 0.02 Absolute Neuts (auto) 6.7 Absolute Nucleated RBC 0.000 Nucleated RBC % (auto) 0.0 PT 11.6 INR 1.0 APTT 35.4 VBG pH 7.36 VBG pCO2 55 VBG pO2 32 VBG HCO3 31 H VBG O2 Saturation 49.0 VBG Base Excess 4.8 Anion Gap 12 Estim Creat Clear Calc 44.3 Estimated GFR 53 Random Glucose 105 Lactic Acid 1.1 Calcium 10.4 H D Total Bilirubin 1.1 H AST 17 ALT 9 Alkaline Phosphatase 78 Total Protein 7.8 Albumin 4.4 Lipase 21 Influenza Type A (PCR) NEGATIVE Influenza Type B (PCR) NEGATIVE RSV RNA Qual (PCR) NEGATIVE SARS-CoV-2 RNA (RT-PCR) NEGATIVE Imaging Radiologist's Impressions: Impressions Chest X-Ray 07/21/23 13:43 IMPRESSION: Well-inflated lungs suggestive of COPD. No evidence for acute disease in the chest. Assessment and Plan (1) COPD exacerbation: Status: Acute (2) Hypoxia: Status: Acute Plan Pt is a 67-year-old female with a PMH significant for?HTN, HLD, COPD, and an active smoker who presents to the ED with?3 days of increasing shortness of breath and difficulty breathing. Pt will be admitted to the hospital for treatment of acute hypoxic respiratory failure in the setting of COPD exacerbation. Acute hypoxic respiratory failure in the setting of COPD exacerbation Patient desatting as low as 86% on RA, diffuse wheezing and rhonchi upon auscultation despite DuoNebs and Solu-Medrol in the ED Patient does not meet sepsis criteria: Tachycardia and tachypnea secondary to albuterol and hypoxia, not sepsis; no leukocytosis, no clear source of infection, lactic acid WNL at Will treat with DuoNebs, Solu-Medrol, and azithromycin Titrate supplemental O2>92, wean as tolerated Smoking cessation counseled HTN Continue amlodipine HLD Continue statin Mood disorder Continue home meds Full Code Attending:?Dr. Salgado DVT Prophylaxis: Lovenox Pt will require a hospitalization of at least two nights for treatment of?acute hypoxic respiratory failure in the setting of COPD exacerbation. Patient received IV steroids, breathing treatments, and supplemental oxygen. Quality Stroke Does the patient have a stroke diagnosis?: No VTE Prior VTE?: No VTE Risk Level:: Medical - moderate - high VTE Device Contraindication: Treatment Not Indicated VTE Drug Contraindication: N/A - Med Ordered
--- NOTE | 2023-07-21 17:59 | PC.NURSE ---
Admission report submitted
[2023-07-21] MEDS: Enoxaparin Sodium 40 MG/0.4 ML SYRINGE SUBCUT (18:17)
[2023-07-21 19:34] VITALS: BP 135/79; PULSE 97; RESP 16; TEMP 36.2; O2SAT 92
[2023-07-21 20:46] VITALS: PULSE 86; RESP 16; O2SAT 96
[2023-07-21] MEDS: Albuterol/Iprat 2.5/0.5MG 3 ML AMPUL.NEB INHALE (20:46)
[2023-07-21] MEDS: methylPREDNISolone Sod Succ 40 MG/ML VIAL IVPUSH (21:11)
[2023-07-21] MEDS: 0.9 % Sodium Chloride Flush 3 ML SYRINGE IVFLUSH (21:14)
[2023-07-22] VITALS (8 sets, daily range): BP systolic 101–136; BP diastolic 74–80; PULSE 76–100; RESP 16–20; TEMP 36.4–36.6; O2SAT 92–98
[2023-07-22] MEDS: Albuterol/Iprat 2.5/0.5MG 3 ML AMPUL.NEB INHALE ×4 (07:48→19:08)
[2023-07-22] MEDS: 0.9 % Sodium Chloride Flush 3 ML SYRINGE IVFLUSH ×3 (09:22→20:50)
[2023-07-22] MEDS: methylPREDNISolone Sod Succ 40 MG/ML VIAL IVPUSH ×2 (09:22→20:51)
--- NOTE | 2023-07-22 09:58 | HO.PM.IMPN ---
Subjective Subjective Date of Service: 07/22/23 Interval History: follow-up on acute exacerbation of COPD, she feels better but not optimal. Still requiring oxygen Physical Exam Vital Signs: Vital Signs: Last Vital Signs Temp 97.9 F 07/22/23 08:00 Pulse 100 07/22/23 08:00 Resp 18 07/22/23 08:00 BP 101/74 07/22/23 08:00 Pulse Ox 94 07/22/23 03:01 O2 Del Method Nasal Cannula 07/22/23 03:01 O2 Flow Rate 3 07/22/23 03:01 BMI result Body Mass Index 19.4 Const: Other: General: AO X 3, no acute distress Resp: diminished breath sound bilaterally, some rhonchi. CVS: S1,S2,RRR GI: +BS, NT, no distention Skin: No rash Neuro: motor grossly intact Psych: appropriate affect Objective Data Active Medications Acetaminophen (Acetaminophen 325 Mg Tablet) 650 mg PO Q6H PRN PRN Reason: Pain, Mild (Pain Scale 1-3) Albuterol/Ipratropium (Albuterol/Iprat 2.5/0.5mg 3 Ml Ampul.Neb) 3 ml INHALE RQ4H WHILE AWAKE [facility] Last Admin: 07/22/23 07:48 Dose: 3 ml Documented By: BRESNE Benzonatate (Benzonatate 100 Mg Capsule) 100 mg PO TID PRN PRN Reason: Cough Docusate Sodium (Docusate Sodium 100 Mg Capsule) 100 mg PO DAILY PRN PRN Reason: Constipation Enoxaparin Sodium (Enoxaparin Sodium 40 Mg/0.4 Ml Syringe) 40 mg SUBCUT Q24H [facility] Last Admin: 07/21/23 18:17 Dose: 40 mg Documented By: CLAY Azithromycin 500 mg/ Sodium (Chloride) 250 mls @ 125 mls/hr IV Q24H [facility] Melatonin (Melatonin 3 Mg Tablet) 6 mg PO BEDTIME PRN PRN Reason: Insomnia Methylprednisolone Sodium Succinate (Methylprednisolone Sod Succ 40 Mg/Ml Vial) 40 mg IVPUSH Q12H [facility] Last Admin: 07/22/23 09:22 Dose: 40 mg Documented By: VALENTINO Ondansetron HCl (Ondansetron Hcl 4 Mg/2 Ml Vial) 4 mg IVPUSH Q8H PRN PRN Reason: Nausea and Vomiting Sodium Chloride (0.9 % Sodium Chloride Flush 3 Ml Syringe) 3 ml IVFLUSH QSHIFT [facility] Last Admin: 07/22/23 09:22 Dose: 3 ml Documented By: VALENTINO Labs 07/21/23 13:23 07/21/23 13:23 Labs: Laboratory Results - last 24 hr 07/21/23 07/21/23 13:23 14:14 MCV 91.9 MCH 30.3 MCHC 33.0 RDW 13.5 Plt Count 230 MPV 8.9 L Immature Gran % (Auto) 0.2 Neut % (Auto) 79.3 H Lymph % (Auto) 7.5 L [place] % (Auto) 6.2 Eos % (Auto) 6.2 H Baso % (Auto) 0.6 Lymph # (Auto) 0.6 L [place] # (Auto) 0.5 Eos # (Auto) 0.5 H Baso # (Auto) 0.1 Abs Immat Gran (auto) 0.02 Absolute Neuts (auto) 6.7 Absolute Nucleated RBC 0.000 Nucleated RBC % (auto) 0.0 PT 11.6 INR 1.0 APTT 35.4 VBG pH 7.36 VBG pCO2 55 VBG pO2 32 VBG HCO3 31 H VBG O2 Saturation 49.0 VBG Base Excess 4.8 Anion Gap 12 Estim Creat Clear Calc 44.3 Estimated GFR 53 Random Glucose 105 Lactic Acid 1.1 Calcium 10.4 H D Total Bilirubin 1.1 H AST 17 ALT 9 Alkaline Phosphatase 78 Total Protein 7.8 Albumin 4.4 Lipase 21 Influenza Type A (PCR) NEGATIVE Influenza Type B (PCR) NEGATIVE RSV RNA Qual (PCR) NEGATIVE SARS-CoV-2 RNA (RT-PCR) NEGATIVE Assessment and Plan (1) COPD exacerbation: Status: Acute (2) Hypoxia: Status: Acute Plan 67-year-old female with a PMH significant for?HTN, HLD, COPD, and an active smoker who presented to the ED with?3 days of increasing shortness of breath and difficulty breathing and is admitted for treatment of acute hypoxic respiratory failure in the setting of COPD exacerbation. Acute hypoxic respiratory failure d/t COPD exacerbation, responding to treatment but yet optimal for dc. Continue bronchodiltors by Neb, IV corticosteroid, O2 as need with goal of O2 sat 88 to 92%, cough medication PRN, smoking cessation reinforced. Sepsis d/t copd exacerbation, sepsis resolved. Continue Azithro for bronchitis. HTN, bp on lower side, restart Norvasc tomorrow Tobacco use desorder--NRT Mild protein calory malnutrition--increase calory intake HLD Continue statin Mood disorder Continue home meds Full Code DVT Prophylaxis: Lovenox In light of sepsis with copd with hypoxia in elderly pt with multiple comorbid condition, inpatient management is warranted to monitor for detelioration Quality Stroke Does the patient have a stroke diagnosis?: No VTE Prior VTE?: No VTE Risk Level:: Medical - moderate - high VTE Device Contraindication: Treatment Not Indicated VTE Drug Contraindication: N/A - Med Ordered
[2023-07-22] MEDS: Cholecalciferol (Vitamin D3) 25 MCG TABLET PO (11:41)
[2023-07-22] MEDS: Loratadine 10 MG TABLET PO (11:41)
[2023-07-22] MEDS: Azithromycin 500 MG in 0.9 % Sodium Chloride 250 ML 125 MG IV (15:41)
--- NOTE | 2023-07-22 15:57 | MHC.CM.PN ---
Addendum entered by Charito Navas 07/23/23 14:38: PT REPORTS SHE LIVES ALONE AND IS INDEPENDENT WITH CARE SHE HAS ONLY A [facility] RN THAT CHECKS IN QUARTERLY FOR SERVICES AND USES NO DME SHE SAYS HER SISTER AND BOYFRIEND ARE HER HCP AGENTS, COPY REQUESTED PCP: CURTIS WALLIS IMM DELIVERED DCP: HOME NO SERVICES VIA PRIVATE TRANSPORT Original Note: CM ATTEMPTED TO MEET WITH PT WHO WAS ON THE PHONE AND LATER WITH VISITORS CM WILL REVISIT
[2023-07-22] MEDS: Enoxaparin Sodium 40 MG/0.4 ML SYRINGE SUBCUT (17:39)
[2023-07-22] MEDS: Melatonin 3 MG TABLET 6 MG PO (23:15)
[2023-07-23] VITALS (8 sets, daily range): BP systolic 119–138; BP diastolic 75–93; PULSE 69–88; RESP 16–18; TEMP 36.2–36.8; O2SAT 92–94
[2023-07-23] MEDS: Fluticasone/Vilanterol 200/25 BLST.W.DEV 1 PUFF INHALE (08:51)
[2023-07-23] MEDS: Albuterol/Iprat 2.5/0.5MG 3 ML AMPUL.NEB INHALE ×3 (08:52→19:47)
[2023-07-23] MEDS: Cholecalciferol (Vitamin D3) 25 MCG TABLET PO (09:30)
[2023-07-23] MEDS: amLODIPine Besylate 5 MG TABLET PO (09:30)
[2023-07-23] MEDS: methylPREDNISolone Sod Succ 40 MG/ML VIAL IVPUSH (09:30)
[2023-07-23] MEDS: Atorvastatin Calcium 10 MG TABLET PO (09:30)
[2023-07-23] MEDS: Loratadine 10 MG TABLET PO (09:30)
--- NOTE | 2023-07-23 14:51 | HO.PM.IMPN ---
Subjective Subjective Date of Service: 07/23/23 Interval History: follow-up on acute exacerbation of COPD, Overall is feeling better, but not optimal, weaning off O2 Physical Exam Vital Signs: Vital Signs: Last Vital Signs Temp 97.3 F 07/23/23 07:40 Pulse 69 07/23/23 08:52 Resp 18 07/23/23 08:52 BP 119/75 07/23/23 07:40 Pulse Ox 92 07/23/23 07:40 O2 Del Method Room Air 07/23/23 07:40 O2 Flow Rate 2.0 07/22/23 08:00 BMI result Body Mass Index 19.4 Const: Other: General: AO X 3, no acute distress Resp: diminished breath sound bilaterally, some rhonchi and no wheeze CVS: S1,S2,RRR GI: +BS, NT, no distention Skin: No rash Neuro: motor grossly intact Psych: appropriate affect Objective Data Active Medications Acetaminophen (Acetaminophen 325 Mg Tablet) 650 mg PO Q6H PRN PRN Reason: Pain, Mild (Pain Scale 1-3) Albuterol/Ipratropium (Albuterol/Iprat 2.5/0.5mg 3 Ml Ampul.Neb) 3 ml INHALE RQ4H WHILE AWAKE [facility] Last Admin: 07/23/23 11:53 Dose: Not Given Documented By: SIRISHA Non-Admin Reason: Pt wants to sleep, will call. Amitriptyline HCl (Amitriptyline Hcl 10 Mg Tablet) 10 mg PO BEDTIME PRN PRN Reason: Insomnia Amlodipine Besylate (Amlodipine Besylate 5 Mg Tablet) 5 mg PO DAILY [facility]; Protocol Last Admin: 07/23/23 09:30 Dose: 5 mg Documented By: VALENTINO Atorvastatin Calcium (Atorvastatin Calcium 10 Mg Tablet) 10 mg PO DAILY [facility] Last Admin: 07/23/23 09:30 Dose: 10 mg Documented By: VALENTINO Benzonatate (Benzonatate 100 Mg Capsule) 100 mg PO TID PRN PRN Reason: Cough Cyclobenzaprine HCl (Cyclobenzaprine Hcl 10 Mg Tablet) 10 mg PO TID PRN PRN Reason: muscle spasm Docusate Sodium (Docusate Sodium 100 Mg Capsule) 100 mg PO DAILY PRN PRN Reason: Constipation Enoxaparin Sodium (Enoxaparin Sodium 40 Mg/0.4 Ml Syringe) 40 mg SUBCUT Q24H [facility] Last Admin: 07/22/23 17:39 Dose: 40 mg Documented By: VALENTINO Fluticasone/Vilanterol (Fluticasone/Vilanterol 200/25 Blst.W.Dev) 1 puff INHALE RDAILY [facility] Last Admin: 07/23/23 08:51 Dose: 1 puff Documented By: SIRISHA Azithromycin 500 mg/ Sodium (Chloride) 250 mls @ 125 mls/hr IV Q24H [facility] Last Infusion: 07/22/23 18:18 Dose: Infused Documented By: VALENTINO Loratadine (Loratadine 10 Mg Tablet) 10 mg PO DAILY [facility] Last Admin: 07/23/23 09:30 Dose: 10 mg Documented By: VALENTINO Melatonin (Melatonin 3 Mg Tablet) 6 mg PO BEDTIME PRN PRN Reason: Insomnia Last Admin: 07/22/23 23:15 Dose: 6 mg Documented By: JOLYNN Methylprednisolone Sodium Succinate (Methylprednisolone Sod Succ 40 Mg/Ml Vial) 40 mg IVPUSH Q12H [facility] Last Admin: 07/23/23 09:30 Dose: 40 mg Documented By: VALENTINO Nicotine (Nicotine 21 Mg Patch.Td24) 21 mg TRANSDERMA DAILY PRN PRN Reason: Nicotine Cravings Ondansetron HCl (Ondansetron Hcl 4 Mg/2 Ml Vial) 4 mg IVPUSH Q8H PRN PRN Reason: Nausea and Vomiting Sodium Chloride (0.9 % Sodium Chloride Flush 3 Ml Syringe) 3 ml IVFLUSH QSHIFT [facility] Last Admin: 07/23/23 09:31 Dose: Not Given Documented By: VALENTINO Non-Admin Reason: Previously Administered Vitamin D (Cholecalciferol (Vitamin D3) 25 Mcg Tablet) 25 mcg PO DAILY [facility] Last Admin: 07/23/23 09:30 Dose: 25 mcg Documented By: VALENTINO Labs 07/21/23 13:23 07/21/23 13:23 Microbiology Microbiology Results: Microbiology 07/21/23 14:07 Blood Culture - Preliminary Blood - Venous No growth after 24 hours. 07/21/23 13:23 Blood Culture - Preliminary Blood - Venous No growth after 24 hours. Assessment and Plan (1) COPD exacerbation: Status: Acute (2) Hypoxia: Status: Acute Plan 67-year-old female with a PMH significant for?HTN, HLD, COPD, and an active smoker who presented to the ED with?3 days of increasing shortness of breath and difficulty breathing and is admitted for treatment of acute hypoxic respiratory failure in the setting of COPD exacerbation. Acute hypoxic respiratory failure d/t COPD exacerbation, responding to treatment but not yet optimal for dc. Continue bronchodiltors by Neb, IV corticosteroid and change to PO prednisone tomorrow, O2 as need with goal of O2 sat 88 to 92%, cough medication PRN, smoking cessation reinforced. Sepsis d/t copd exacerbation, sepsis resolved. Continue Azithro for bronchitis for total of 5 days HTN, controlled, continue Norvasc Tobacco use desorder--NRT Mild protein calory malnutrition--increase calory intake HLD Continue statin Mood disorder Continue home meds Full Code DVT Prophylaxis: Lovenox In light of sepsis with copd with hypoxia in elderly pt with multiple comorbid condition, inpatient management is warranted to monitor for detelioration anticipate discharge tomorrow Quality Stroke Does the patient have a stroke diagnosis?: No VTE Prior VTE?: No VTE Risk Level:: Medical - moderate - high VTE Device Contraindication: Treatment Not Indicated VTE Drug Contraindication: N/A - Med Ordered
[2023-07-23] MEDS: 0.9 % Sodium Chloride Flush 3 ML SYRINGE IVFLUSH (15:42)
[2023-07-23] MEDS: Azithromycin 500 MG in 0.9 % Sodium Chloride 250 ML 125 MG IV (15:42)
[2023-07-23] MEDS: Enoxaparin Sodium 40 MG/0.4 ML SYRINGE SUBCUT (17:37)
[2023-07-23] MEDS: Melatonin 3 MG TABLET 6 MG PO (23:45)
[2023-07-24 07:08] VITALS: BP 133/78; PULSE 76; RESP 17; TEMP 36.1; O2SAT 93
[2023-07-24] MEDS: Albuterol/Iprat 2.5/0.5MG 3 ML AMPUL.NEB INHALE ×2 (07:21→11:32)
[2023-07-24 07:22] VITALS: PULSE 84; RESP 18; O2SAT 93
[2023-07-24] MEDS: Fluticasone/Vilanterol 200/25 BLST.W.DEV 1 PUFF INHALE (07:22)
[2023-07-24] MEDS: Loratadine 10 MG TABLET PO (07:53)
[2023-07-24] MEDS: Atorvastatin Calcium 10 MG TABLET PO (07:53)
[2023-07-24] MEDS: predniSONE 20 MG TABLET 40 MG PO (07:54)
[2023-07-24] MEDS: amLODIPine Besylate 5 MG TABLET PO (07:54)
[2023-07-24] MEDS: Cholecalciferol (Vitamin D3) 25 MCG TABLET PO (07:54)
--- NOTE | 2023-07-24 09:29 | PM.DS ---
DS: Providers Provider Date of Service: 07/24/23 Date of admission: 07/21/23 16:26 Primary care physician: Anne Caballero MD DS: Diagnosis Discharge Diagnosis (1) COPD exacerbation: Status: Acute (2) Hypoxia: Status: Acute DS: Summary Hospital Course Hospital Course: Chief Complaint: SOB Pt is a 67-year-old female with a PMH significant for?HTN, HLD, COPD, and an active smoker who presents to the ED with?3 days of increasing shortness of breath and difficulty breathing. Patient states she cannot catch her breath when going up stairs or doing any kind of daily activity such as making her bed. Has chronic cough, worsened the past few days and now productive of yellowish sputum. Currently smokes 3-4 cigarettes daily, not on home O2. Denies chest pain/pressure, palpitations. No fever, chills, nausea, vomiting, abdominal pain. No changes to bowel or bladder habits. While talking, patient noted to desat as low as 86% on RA. Of note, patient was last hospitalized 3 months earlier on 04/13-04/15 for similar symptoms. Patient was then tested but failed to qualify for home O2. In the ED pt was afebrile, but had tachycardia to 113 and tachypnea to 20, and hypertensive as high as 145/93. Labs were grossly unremarkable. Lactic acid WNL at 1.1. Troponin negative. CXR showed evidence of COPD but no evidence for acute disease in the chest. EKG demonstrated sinus tachycardia of 1 of 3 with no evidence of significant ST elevations or depressions. Pt was treated with DuoNebs, Solu-Medrol, and azithromycin. Pt will be admitted to the hospital for treatment of acute hypoxic respiratory failure in the setting of COPD exacerbation. Hospital course: Patient was admitted for management of an acute exacerbation of chronic obstructive pulmonary disease (COPD) while actively using tobacco. She was treated with intravenous corticosteroids and bronchodilators, resulting in a rapid recovery. We have discussed the urgency of smoking cessation, and she has agreed to start using a nicotine patch to aid in this process. She will be discharged with Prednisone for three more days, totaling a five-day course. She will also continue using her usual bronchodilators and follow up with her primary care physician (PCP) Time Attestation Discharge coordination time: Greater than 30 minutes Quality: Safe Use of Opioids Does Pt have an Active Cancer Diagnosis on the Problem List?: No Quality: Stroke Does the patient have a stroke diagnosis?: No Physical Exam Vital Signs: Vital Signs: Last Vital Signs Temp 97 F 07/24/23 07:08 Pulse 84 07/24/23 07:22 Resp 18 07/24/23 07:22 BP 133/78 07/24/23 07:08 Pulse Ox 93 07/24/23 07:08 O2 Del Method Room Air 07/24/23 07:08 O2 Flow Rate 2.0 07/22/23 08:00 BMI result Body Mass Index 19.4 Const: Other: General: AO X 3, no acute distress Resp: CTA bilateral, no wheeze, normal breathing effort CVS: S1,S2,RRR GI: +BS, NT, no distention Skin: No rash Neuro: motor grossly intact Psych: appropriate affect DS: Data Data Completed and Pending Labs on day of discharge: Preliminary micro results at discharge 07/21/23 14:07 Blood Culture - Preliminary Blood - Venous No growth after 48 hours. 07/21/23 13:23 Blood Culture - Preliminary Blood - Venous No growth after 48 hours. Discharge Plan Discharge Anticipated Discharge Date/Time: 07/24/23 08:16 Patient Disposition: Home, Self-Care Discharge Diagnosis: COPD exacerbation Referrals: Anne Caballero MD [Primary Care Provider] - 1 Week Discharge Medications: New prednisone 20 mg tablet 40 mg PO DAILY Qty: 6 0RF Continued fluticasone furoate-vilanterol [Breo Ellipta] 200-25 mcg/dose blister with device 1 puff INHALATION DAILY cyclobenzaprine 10 mg tablet 10 mg PO TID PRN (Reason: muscle spasm) 7 Days Qty: 21 0RF Rx Instructions: side effect is drowsiness. Do not take at work or while driving. cetirizine 10 mg tablet 10 mg PO QAM albuterol sulfate 1.25 mg/3 mL solution for nebulization 1.25 mg inhalation Q4H PRN (Reason: Wheezing) cholecalciferol (vitamin D3) [Vitamin D3] 25 mcg (1,000 unit) capsule 25 mcg PO QAM amitriptyline 10 mg Tablet 10 mg PO BEDTIME PRN (Reason: Insomnia) vitamin K2 100 mcg Capsule 100 mcg PO DAILY nicotine 21 mg/24 hr patch 24 hour 21 mg transdermal DAILY PRN (Reason: Nicotine Cravings) simvastatin 10 mg tablet 10 mg PO DAILY amlodipine 5 mg tablet 5 mg PO DAILY albuterol sulfate 90 mcg/actuation HFA aerosol inhaler 2 puff PO Q4H PRN (Reason: Shortness Of Breath Or Wheezing) Discharge Orders: Discharge Order (Routine); Ordered 07/24/23 Ordered By: Steven Otero Diet: Advance to usual diet Activity on Discharge: As tolerated Stand Alone Forms: Patient Portal Discharge page Care Plan Goals: To fully recover from COPD exacerbation Health Concerns: COPD Chronic Tobacco use desor Plan of Treatment: Take Predinsone as directed contiue using your inhalers as usual follow up with your Doctor in a week, call for appointment Assessment: as above
--- NOTE | 2023-07-24 09:45 | MHC.CM.PN ---
pt dd home no skilled servies ordered by
[2023-07-24 11:33] VITALS: PULSE 88; RESP 18; O2SAT 94
== END 2023-07-24 14:40 | disposition home or self-care (01) | DRG 871 ==
LOC: HO.ED 15:18 → HO.EDOVER 16:40 → HO.S3 16:46
PROVIDERS: Physician Assistant; Admitting Provider Student in an Organized Health Care Education/Training Program; Emergency Provider Emergency Medicine; PCP Student in an Organized Health Care Education/Training Program; Visit Provider Internal Medicine
DX: A41.9 Sepsis, unspecified organism (principal); J96.01 Acute respiratory failure with hypoxia; J44.1 Chronic obstructive pulmonary disease with (acute) exacerbation; E44.1 Mild protein-calorie malnutrition; Z68.1 Body mass index [BMI] 19.9 or less, adult; E78.5 Hyperlipidemia, unspecified; F39 Unspecified mood [affective] disorder; Z20.822 Contact with and (suspected) exposure to COVID-19; F17.210 Nicotine dependence, cigarettes, uncomplicated; Z71.6 Tobacco abuse counseling; Z79.51 Long term (current) use of inhaled steroids; Z79.899 Other long term (current) drug therapy
CPT/HCPCS: 0241U; 36415; 71046; 80053; 82803; 83605; 83690; 84484; 85025; 85610; 85730; 87040; 93005; 94640; 99285; J0456; J1650; J2920; J2930

== ENCOUNTER → 2023-07-21 12:59 | Outpatient (BNV) | payer OTHER, SELFPAY | PROVIDERS: Admitting Provider Student in an Organized Health Care Education/Training Program; Emergency Provider Emergency Medicine; PCP Student in an Organized Health Care Education/Training Program; Visit Provider Internal Medicine | DX: R00.0 Tachycardia, unspecified (principal); R94.31 Abnormal electrocardiogram [ECG] [EKG] | CPT/HCPCS: 93010 ==

== ENCOUNTER → 2023-07-21 16:26 | Outpatient (BNV) | payer OTHER, SELFPAY | PROVIDERS: Admitting Provider Student in an Organized Health Care Education/Training Program; Emergency Provider Emergency Medicine; PCP Student in an Organized Health Care Education/Training Program; Visit Provider Student in an Organized Health Care Education/Training Program | DX: J44.1 Chronic obstructive pulmonary disease with (acute) exacerbation (principal); J96.01 Acute respiratory failure with hypoxia | CPT/HCPCS: 99222; 99232; 99239 ==

== ENCOUNTER 2023-09-21 11:50 | Outpatient (AMB) | payer OTHER, SELFPAY ==
--- NOTE | 2023-09-21 11:59 | MHC.OFFVIS ---
Intake Vital Signs 09/21/23 12:00 09/21/23 12:29 Height 5 ft 6 in Weight 121 lb BMI 19.5 BP 86/66 L 91/63 Blood Pressure Location Lt brachial Lt brachial Position Sitting Sitting Pulse 97 98 Intake Visit Reasons: 5 month follow up Intake Note: Patient follow up for constipation. 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 Clothing And Equipment Developer Required: No Accompanied by: Self / Same As Patient Allergies No Known Allergies [No Known Allergies*] Allergy (Verified 09/21/23 11:58) Medication List - Last Reconciled 09/21/23 by Nils Huynh MD albuterol sulfate 1.25 mg inhalation Q4H PRN albuterol sulfate 90 mcg/actuation 2 puffs PO Q4H PRN amitriptyline 10 mg PO BEDTIME PRN amlodipine 5 mg PO DAILY cetirizine 10 mg PO QAM cholecalciferol (vitamin D3) (Vitamin D3) 25 mcg PO QAM cyclobenzaprine 10 mg PO TID PRN 7 days fluticasone furoate-vilanterol 200-25 mcg/dose (Breo Ellipta) 1 puff inhalation DAILY nicotine 21 mg transdermal DAILY PRN simvastatin 10 mg PO DAILY vitamin K2 100 mcg PO DAILY HPI 5 month follow up HPI Details GI CLINIC VISIT FOR THIS 68-YEAR-OLD FEMALE WITH HYPERTENSION, HYPERCHOLESTEROLEMIA, MIGRAINE HEADACHES, COPD FOLLOWED IN GI FOR HISTORY OF COLON POLYPS AND RECTAL PROLAPSE ?ENDOSCOPIC STUDIES: 06/06/19 COLONOSCOPY SHOWED: ? Two polyps removed ? Moderate diverticulosis seen in the entire colon ? Moderate hemorrhoids on retroflexed exam. ? Plan: Repeat Colonoscopy in 3 yrs due to a history of large adenomatous polyps on her last colonoscopy. ?BIOPSIES SHOWED: ? A. Colon, cecum, polyp, polypectomy: Clinically polypoid colonic mucosa noted; ? negative for a hyperplastic or neoplastic process. ? B. Colon, sigmoid, polyp, polypectomy: Tubular adenoma. ? C. Rectum, biopsy: Ischemic colitis ? LETTER SENT ADVISING REPEAT COLONOSCOPY IN 3 YEARS. ?TODAY'S VISIT Having bilateral hip pain and diagnosed with arthritis Able to sleep only a few hrs at night and uses Biofreeze. Planning to join [employer] Patient follow up for constipation - having a BM every day.. Patient denies any other GI issues - denies heartburn or dysphagia. Noted intermittent trouble swallow last month - lasted a few days and has resolved. Only had trouble swallowing her saliva and no trouble drinking liquids or solids PAST VIST: Patient states she has been feeling really stiff and some discomfort in thighs and Hips had xrays done. 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 Had 4 brothers and a Brother of a heartattack a month ago and she is still grieving Denies constipation recently Has not scheduled a colonoscopy yet since she felt anxious regarding the procedure and the prep. OK in scheduling it next year after the holidays Had COVID infection and hospitalized for 5 days. She was constipated for 20 days after the surgery. Treated with multiple laxatives. Still having some problems. Had a small Bm today. Feels hungry all the time. Taking Sennakot 2 capsules at night and continuing to be constipated. Notes hemorrhoids and denies recent rectal bleeding - using hemorrhoidal wipes to stay clean. ? Denies recurrent rectal bleeding. ? Denies constipation or diarrhea. ? Was in the habit of squatting a lot which may be pre-disposing to rectal prolapse - has stopped doing that. ? Patient denies change in bowel habits, black stools or rectal bleeding ? Denies dysphagia, heartburn, nausea or vomiting, change in appetite or weight. Vaccinated for COVID. ?? ? Going to the [employer] and won $1800 last month. ?PAST GI HISTORY BY REVIEW OF MEDICAL RECORDS: ? Pt was last seen on 06/14/19: ? Assessments ? 1. History of adenomatous polyp of colon - Z86.010 (Primary) ? 2. Diverticulosis large intestine w/o perforation or abscess w/o bleeding - K57.30 ? 63 YF with hypertension, high cholesterol, Migraine CHAN and COPD here for follow-up after colonoscopy to discuss results. 06/06/19 colonoscopy was performed and add diminutive tubular adenoma was removed. A 2 x 2 cms area of edmatous and friable mucosa was noted in the rectum - biopsies showed ischemic colitis likely related to rectal prolapse. Patient admitted to sitting frequently in a squatting position which may be predisposing to rectal prolapse - she will try to avoid squatting in the future. ? Treatment ? 1. History of adenomatous polyp of colon ? Notes: Repeat colonoscopy in 3 years. ? Follow Up ? 6 Months (Reason: FU of colon polyps and diverticulos PFSH Surgical History H/O total hysterectomy Hx of colonoscopy (~05/2019) History of tubal ligation Family History Mother Breast CA Social History Household Members: None Household Members Other:: goes to significant other house 3x a week Housing: Apartment Housing Other:: 2 family house Do you presently have visiting nurse or other home services: Yes Alcohol intake: current Alcohol intake frequency: does not drink Patient Tobacco Use Status: Current someday Tobacco user Tobacco use type: Cigarette Cigarettes Per Day: 3 e-Cigarette/Vaping Use: Never Used Second Hand Smoke Exposure: Yes Substance Use Type: Marijuana service: No Current occupational status: retired Female Reproductive History Menstrual Age of Menarche: 10 Review of Systems Const All systems reviewed & are unremarkable except as noted in HPI and below Physical Exam Vital Signs: Last Vital Signs Pulse 97 09/21/23 12:00 BP 86/66 L 09/21/23 12:00 BMI result Body Mass Index 19.5 Const General: no acute distress Nutritional Appearance: underweight Orientation/consciousness: patient oriented x3 Limitations: no limitations HEENT Head: Yes normal to inspection Ears: hearing grossly normal bilaterally Eyes Sclerae: sclerae normal Pupils: Equal, round and reactive pupils present Neck Neck: Yes normal visual inspection Chest Chest palpation & inspection: normal inspection of the chest Resp Effort & Inspection: normal respiratory effort Auscultation: clear to auscultation bilaterally Cardio Palpation: normal PMI Rate: regular rate Rhythm: regular rhythm Heart sounds: S1 normal heart sound present, S2 normal heart sound present and no murmurs GI Palpation (GI): Soft to palpation, nontender and No hepatosplenomegaly present Auscultation: normal bowel sounds Rectal Exam - Female: deferred Skin General skin exam: no rashes or lesions noted Neuro General: patient oriented x3, gait normal and moves all extremities Cranial nerves: Yes Equal, round and reactive pupils present Psych Appearance: grossly normal Mental Status: mental status grossly normal Assessment & Plan Assessment & Plan (1) Chronic constipation: Code(s): K59.09 - Other constipation (2) History of adenomatous polyp of colon: Comment: 06/06/19 colonoscopy was performed and a diminutive tubular adenoma was removed. A 2 x 2 cms area of edmatous and friable mucosa was noted in the rectum - biopsies showed ischemic colitis likely related to rectal prolapse. Repeat colonoscopy advised in 3 years (due in 03/2022) Code(s): Z86.010 - Personal history of colonic polyps (3) Vitamin D deficiency: Code(s): E55.9 - Vitamin D deficiency, unspecified Plan 68 YF with hypertension, high cholesterol, Migraine CHAN and COPD followed in GI for a history of colon polyps and rectal prolapse. 06/06/19 colonoscopy was performed and a diminutive tubular adenoma was removed. A 2 x 2 cms area of edmatous and friable mucosa was noted in the rectum - biopsies showed ischemic colitis likely related to rectal prolapse. Patient admitted to sitting frequently in a squatting position which may be predisposing to rectal prolapse - she now avoids squatting and denies recurrent rectal bleeding. 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 Had COVID infection and hospitalized for 5 days. She was constipated for 20 days after the surgery. Treated with multiple laxatives. Still having some problems. Had a small Bm today. Feels hungry all the time. Taking Sennakot 2 capsules at night and continuing to be constipated. Pt will be scheduled for a colonoscopy (FU of colon polyps) - Clenpiq prep for colonoscopy. 04/21/23 Denies constipation recently Has not scheduled a colonoscopy yet since she felt anxious regarding the procedure and the prep. OK in scheduling it next year after the holidays 09/21/23 Pt will be scheduled for a colonoscopy - surveillance for colon polyps FU appt in 5 months after colonoscopy procedure Medications: New bisacodyl (Dulcolax (bisacodyl)) Take 2 tablets at 12 pm starting 5 days before colonoscopy 10 mg (2 x 5 mg) PO ONCE 5 days 10 tabs 0RF colon prep polyethylene glycol 3350 (Miralax) Mix Miralax with 64 oz(8 cups) of Crystal light. Take 2 tablets of Dulcolax qt 12 pm. Wait to have your 1st bowel movement, then begin drinking Miralax. Drink a glass of Miralax every 10-15 minutes until you are finished. You will drink at least another 4 cups of clear liquid of your choice over the next 2 hours. Please drink as many clear liquids as possible You may have clear liquids up to four hours before your procedure 17 grams PO DAILY 238 grams 0RF colon prep 1 day Coding Level of Care Code Est Pt Level 4 (05932) Diagnoses Chronic constipation K59.09 History of adenomatous polyp of colon Z86.010 Vitamin D deficiency E55.9 Time Spent (min) 23
[2023-09-21 12:00] VITALS: BP 86/66; PULSE 97; BMI 19.5
[2023-09-21 12:29] VITALS: BP 91/63; PULSE 98
== END 2023-09-21 12:38 | disposition home or self-care (01) ==
PROVIDERS: PCP Student in an Organized Health Care Education/Training Program; Visit Provider Internal Medicine Gastroenterology
DX: K59.09 Other constipation (principal); Z86.010 Personal history of colon polyps; E55.9 Vitamin D deficiency, unspecified
CPT/HCPCS: 99214

== ENCOUNTER → 2023-09-21 11:50 | Outpatient (BNVA) | payer OTHER, SELFPAY | PROVIDERS: PCP Student in an Organized Health Care Education/Training Program; Visit Provider Internal Medicine Gastroenterology | DX: K59.09 Other constipation (principal); E55.9 Vitamin D deficiency, unspecified; Z86.010 Personal history of colon polyps | CPT/HCPCS: 99212 ==

== ENCOUNTER 2023-09-29 11:49 | Outpatient (REF) | payer OTHER, SELFPAY ==
[2023-09-29 13:55] LABS: Alanine Aminotransferase 11 U/L (0-31); Alkaline Phosphatase 62 U/L (39-117); Anion Gap 13 (12-20); Aspartate Amino Transferase 17 U/L (5-31); Bilirubin Direct 0.3 mg/dL (0.0-0.5); Bilirubin Total 0.8 mg/dL (0.0-1.0); Blood Urea Nitrogen 21 mg/dL (9-16); Calcium 10.2 mg/dL (8.4-10.2); Carbon Dioxide 28 mmol/L (22-29); Chloride 105 mmol/L (96-108); Cholesterol 203 mg/dL (<200); Estimated Glomerular Filt Rate 57; Glucose Random 94 mg/dL (60-115); HDL Cholesterol 72 mg/dL (>40); LDL Cholesterol Calculated 114 mg/dL (<100); Potassium 4.1 mmol/L (3.3-5.1); Sodium 142 mmol/L (135-145); Total Protein 6.8 g/dL (6.5-8.0); Triglycerides 89 mg/dL (<150)
== END 2023-09-29 11:50 | disposition home or self-care (01) ==
LOC: HO.HHCL 11:49
PROVIDERS: Visit Provider Student in an Organized Health Care Education/Training Program
DX: I10 Essential (primary) hypertension (principal); E05.90 Thyrotoxicosis, unspecified without thyrotoxic crisis or storm
CPT/HCPCS: 36415; 80048; 80061; 80076; 84443

== ENCOUNTER 2023-10-03 06:23 | Inpatient (IN) | payer OTHER, SELFPAY ==
[2023-10-03] VITALS (7 sets, daily range): BP systolic 119–184; BP diastolic 58–94; PULSE 93–110; RESP 15–28; TEMP 36.6–36.8; O2SAT 93–97; BMI 19.8; BMI 19.1
--- NOTE | 2023-10-03 | ECG_ITS ---
Test Reason : DYSPNEA Blood Pressure : / mmHG Vent. Rate : 101 BPM Atrial Rate : 101 BPM P-R Int : 136 ms QRS Dur : 088 ms QT Int : 352 ms P-R-T Axes : 077 065 085 degrees QTc Int : 456 ms Sinus tachycardia Nonspecific T wave abnormality Abnormal ECG When compared with ECG of 21-JUL-2023 13:13, No significant change was found Referred By: Generic ED Physician Electronically Signed By:JESSENIA EISEBNERG MD
--- NOTE | ~2023-10-03 | XR_ITS ---
EXAMINATION: XR CHEST CLINICAL INFORMATION: Shortness of breath COMPARISON: Chest 07/21/2023 TECHNIQUE: AP upright portable view of the chest was obtained. 8:00 AM FINDINGS: The lungs are well inflated. No focal consolidation, interstitial pulmonary edema or pneumothorax. Symmetrical nodular densities projected over the lung bases are consistent with nipple shadows. No pleural effusion. The cardiomediastinal silhouette is within normal limits. No acute osseous abnormality. XR/XR chest 1V IMPRESSION: No acute cardiopulmonary disease.
[2023-10-03 06:50] LABS: Basophils Absolute Auto 0.1 X10*3/uL (0.0-0.2); Basophils Percent Auto 1.3 % (0-2); Eosinophils Absolute Auto 0.6 X10*3/uL (0.0-0.4); Eosinophils Percent Auto 11.5 % (0-4); Hematocrit 46.6 % (37.0-47.0); Hemoglobin 15.6 g/dl (12.0-16.0); Imm Gran Abs Auto 0.01 X10*3/uL (0.00-0.03); Imm Gran Pct Auto 0.2 % (0.0-0.4); Lymphocytes Absolute Auto 1.3 X10*3/uL (1.2-4.9); Lymphocytes Percent Auto 25.3 % (20-40); MANUAL DIFF FLAG NO; Mean Corpuscular HGB Conc 33.5 g/dl (31.0-35.0); Mean Corpuscular Hemoglobin 30.8 pg (27.0-33.0); Mean Corpuscular Volume 92.1 fL (80.0-98.0); Mean Platelet Volume 8.8 fL (9.4-12.3); Monocytes Absolute Auto 0.6 X10*3/uL (0.1-1.2); Monocytes Percent Auto 11.3 % (2-11); Neutrophils Absolute Auto 2.6 x10*3/uL (2.0-8.3); Neutrophils Percent Auto 50.4 % (45-73); Platelet Count 227 X10*3/uL (160-400); Red Blood Count 5.06 X10*6/uL (4.20-5.50); Red Cell Distribution Width 12.8 % (11.0-16.0); White Blood Count 5.2 X10*3/uL (4.8-10.8)
--- NOTE | 2023-10-03 06:52 | ED.SOB ---
HPI - SOB/Dyspnea General Chief Complaint: Dyspnea Stated Complaint: RESPIRATORY DISTRESS Time Seen by Provider: 10/03/23 06:43 Source: patient and RN notes reviewed Mode of arrival: ambulatory Limitations: no limitations History of Present Illness HPI Narrative: This is a 68-year-old female, with a history of COPD, hyperlipidemia, and hypertension, presenting to the emergency department for evaluation of shortness of breath and difficulty breathing for the last several days. Patient states that this morning she felt worsening shortness of breath and felt very unwell and called 911. On arrival, EMS saturation was 77% on room air. Duo nebulizer was given in route, which provided her with some relief. Patient denies any chest pain, headaches, fevers or chills, nausea, vomiting or diarrhea. She also endorses bilateral hip pain, which she states has been constant for the last several weeks. No sick contacts. She has previously been hospitalized for COPD exacerbations, last hospital admission was July 21, 2023. No other complaints or concerns at this time. MD elicited complaint: shortness of breath Pertinent past history: COPD Onset (ago): day(s) Timing: constant and improved Severity: moderate Exacerbating factors: nothing Relieving factors: oxygen and bronchodilators Known history of: COPD Associated symptoms: denies other symptoms Treatment prior to arrival: oxygen and bronchodilator Related Data Home oxygen amount: none Home Medications Medication Instructions Recorded Confirmed simvastatin 10 mg tablet 10 mg PO DAILY 01/28/21 09/21/23 albuterol sulfate 90 mcg/actuation 2 puff PO Q4H PRN Shortness Of 02/03/22 09/21/23 aerosol inhaler Breath Or Wheezing amlodipine 5 mg tablet 5 mg PO DAILY 02/03/22 09/21/23 fluticasone furoate 200 1 puff inhalation DAILY 04/13/22 09/21/23 mcg-vilanterol 25 mcg/dose inhalation powder (Breo Ellipta) albuterol sulfate 1.25 mg/3 mL 1.25 mg inhalation Q4H PRN Wheezing 07/21/23 09/21/23 solution for nebulization amitriptyline 10 mg tablet 10 mg PO BEDTIME PRN Insomnia 07/21/23 09/21/23 cetirizine 10 mg tablet 10 mg PO QAM 07/21/23 09/21/23 cholecalciferol (vitamin D3) 25 25 mcg PO QAM 07/21/23 09/21/23 mcg (1,000 unit) capsule (Vitamin D3) nicotine 21 mg/24 hr daily 21 mg transdermal DAILY PRN 07/21/23 09/21/23 transdermal patch Nicotine Cravings vitamin K2 100 mcg capsule 100 mcg PO DAILY 07/21/23 09/21/23 Previous Rx's Medication Instructions Recorded cyclobenzaprine 10 mg tablet 10 mg PO TID PRN muscle spasm 7 12/04/22 days #21 tabs bisacodyl 5 mg tablet,delayed 10 mg (2 x 5 mg) PO ONCE colon 09/21/23 release (Dulcolax (bisacodyl)) prep 5 days #10 tabs polyethylene glycol 3350 17 17 g PO DAILY colon prep 1 day 09/21/23 gram/dose oral powder (Miralax) #238 grams Allergies Allergy/AdvReac Type Severity Reaction Status Date / Time No Known Allergies Allergy Verified 09/21/23 11:58 [No Known Allergies*] Review of Systems Review of Systems: Yes all other systems are reviewed and are negative Constitutional: Constitutional: Reports as per [facility] Past Medical History Attestation statement: The following information was validated with the patient. Medical History (Updated 10/03/23 @ 09:43 by Francisco Salgado MD) COPD (chronic obstructive pulmonary disease) Surgical History H/O total hysterectomy Hx of colonoscopy (~05/2019) History of tubal ligation Family History Family History Mother Breast CA Social History Social History Household Members: None Household Members Other:: goes to significant other house 3x a week Housing: Apartment Housing Other:: 2 family house Do you presently have visiting nurse or other home services: Yes Alcohol intake: current Alcohol intake frequency: does not drink Patient Tobacco Use Status: Current someday Tobacco user Tobacco use type: Cigarette Cigarettes Per Day: 3 Smoked in Last 30 Days: No e-Cigarette/Vaping Use: Never Used Second Hand Smoke Exposure: Yes Use of substances other than those prescribed or required for medical reasons: No Substance Use Type: Marijuana Advance Directives: Yes Advance Directives Information Provided: No Advance Directives on File: No service: No Current occupational status: retired Physical Exam Vital Signs: Vital Signs: Last Vital Signs Temp 98.0 F 10/03/23 07:45 Pulse 93 10/03/23 07:45 Resp 15 10/03/23 07:45 BP 119/75 10/03/23 07:45 Pulse Ox 94 10/03/23 07:45 O2 Del Method Nasal Cannula 10/03/23 07:45 O2 Flow Rate 2 10/03/23 07:45 BMI result Body Mass Index 19.8 Const: General: cooperative, comfortable and no acute distress Orientation/consciousness: patient oriented x3 Limitations: no limitations HEENT: Head: Yes normal to inspection, Yes normocephalic and Yes atraumatic Ears: hearing grossly normal bilaterally General nose exam: Normal external nose present Face and sinus: Yes normal facial exam Mouth: Normal oral and palatal mucosa present, oropharynx normal and moist mucous membranes Throat: Yes posterior oropharynx normal Eyes: General: appearance normal, both eyes and all related structures Eyelids: Yes eyelids normal Conjunctivae: conjunctivae normal Sclerae: sclerae normal Pupils: Equal, round and reactive pupils present EOM: EOMs intact bilaterally Neck: Neck: Yes normal visual inspection, Yes full ROM and Yes no lymphadenopathy Lymphatic: no lymphadenopathy noted Chest: Chest palpation & inspection: normal inspection of the chest Resp: Other: Speaking in 3-4 word sentences. Tight, inspiratory and expiratory wheezes noted throughout all lung tinsley Effort & Inspection: normal respiratory effort and able to speak in complete sentences Auscultation: clear to auscultation bilaterally, no crackles, no rales, no rhonchi and no wheezes Cardio: Rate: regular rate Rhythm: regular rhythm Heart sounds: S1 normal heart sound present and S2 normal heart sound present GI: Inspection: Yes normal to inspection Skin: General skin exam: no rashes or lesions noted Trauma: no lacerations or abrasions Wounds: no wounds Neuro: General: patient oriented x3 and moves all extremities Cranial nerves: Yes Equal, round and reactive pupils present Extrem: General: Yes normal to inspection Right upper extremity: normal to inspection Left upper extremity: normal to inspection Right lower extremity: normal to inspection Left lower extremity: normal to inspection Course Reevaluation(s) Reevaluation #1: Patient re-evaluated, feeling much better after updraft and IV Solu-Medrol. Lungs diminished, but improved airflow, wheezes have since resolved. Given presentation and workup today, pt would benefit with hospital admission for COPD exacerbation. Will trial patient without O2. Time: 08:09 Reevaluation #2: Patient oxygen saturation dipped to 89% on room air, spoke to hospitalist, Dr. Mathew, who accepts. Transfer of care initiated. Time: 09:15 Medications Administered Discontinued Medications Generic Name Dose Route Start Last Admin Trade Name Kourtney PRN Reason Stop Dose Admin Methylprednisolone Sodium Succinate 125 mg 10/03/23 06:52 10/03/23 07:43 Methylprednisolone Sod Succ 125 Mg/2 Ml Vial IVPUSH 10/03/23 06:53 125 mg ONCE ONE Administration Medical Decision Making Medical Decision Making [facility] Narrative: This is a 68-year-old female, with a history of COPD, hypertension, and hyperlipidemia, presenting to the emergency department with complaints of shortness of breath x 3 days. On arrival, patient tachycardic at 105 beats per minute, respirations 28, blood pressure 129/92. She reports no chest pain or shortness of breath. On arrival, EMS reports that her oxygen saturation was 77% on room air. Lungs with tight inspiratory and expiratory wheezes noted throughout all lung tinsley. Differential diagnoses include respiratory failure, COPD exacerbation, pneumonia, viral syndrome. Plan: Labs, EKG, chest x-ray, viral swabs, duo nebulizer, Solu-Medrol Differential Diagnosis Differential Diagnoses: The differential diagnosis associated with the presentation includes See above Admission/Observation Consideration of admission/observation: Escalation of care including admission/observation considered Lab Data [facility] Lab Attestation statement: I reviewed the patient's lab results. No leukocytosis, stable H&H. VBG HCO3 31, otherwise unremarkable. Chemistry nondiagnostic. Troponin less than 2.7, BNP less than 10. Negative influenza COVID, and flu 10/03/23 06:41 10/03/23 07:09 Labs: Lab Results 10/03/23 10/03/23 10/03/23 Range/Units 06:41 07:09 07:12 WBC 5.2 (4.8-10.8) X10*3/uL RBC 5.06 (4.20-5.50) X10*6/uL Hgb 15.6 (12.0-16.0) g/dl Hct 46.6 (37.0-47.0) % MCV 92.1 (80.0-98.0) fL MCH 30.8 (27.0-33.0) pg MCHC 33.5 (31.0-35.0) g/dl RDW 12.8 (11.0-16.0) % Plt Count 227 (160-400) X10*3/uL MPV 8.8 L (9.4-12.3) fL Immature Gran % (Auto) 0.2 (0.0-0.4) % Neut % (Auto) 50.4 (45-73) % Lymph % (Auto) 25.3 (20-40) % Centre % (Auto) 11.3 H (2-11) % Eos % (Auto) 11.5 H (0-4) % Baso % (Auto) 1.3 (0-2) % Lymph # (Auto) 1.3 (1.2-4.9) X10*3/uL Centre # (Auto) 0.6 (0.1-1.2) X10*3/uL Eos # (Auto) 0.6 H (0.0-0.4) X10*3/uL Baso # (Auto) 0.1 (0.0-0.2) X10*3/uL Abs Immat Gran (auto) 0.01 (0.00-0.03) X10*3/uL Absolute Neuts (auto) 2.6 (2.0-8.3) x10*3/uL Absolute Nucleated RBC 0.000 (0.0-0.012) X10*3/uL Nucleated RBC % (auto) 0.0 (0.0-0.2) /100WBC Hold Purple Top SEE NOTE Hold Blue Top SEE NOTE VBG pH 7.33 (7.32-7.43) VBG pCO2 58 mmHg VBG pO2 31 mmHg VBG HCO3 31 H (22-26) mmol/L VBG O2 Saturation 47.0 % VBG Base Excess 3.8 mmol/L Sodium 142 (135-145) mmol/L Potassium 3.9 (3.3-5.1) mmol/L Chloride 102 (96-108) mmol/L Carbon Dioxide 30 H (22-29) mmol/L Anion Gap 14 (12-20) BUN 17 H (9-16) mg/dL Creatinine 0.96 (0.5-1.4) mg/dL Estim Creat Clear Calc 47.9 Estimated GFR 57 Random Glucose 110 (60-115) mg/dL Lactic Acid (0.5-2.0) mmol/L Calcium 10.2 (8.4-10.2) mg/dL Total Bilirubin 0.7 (0.0-1.0) mg/dL AST 18 (5-31) U/L ALT 10 (0-31) U/L Alkaline Phosphatase 61 (39-117) U/L Troponin I High Sens < 2.7 (<3.5-17.0) ng/L B-Natriuretic Peptide < 10 (<100) pg/mL Total Protein 6.9 (6.5-8.0) g/dL Albumin 4.1 (3.5-5.0) g/dL Influenza Type A (PCR) NEGATIVE (Negative) Influenza Type B (PCR) NEGATIVE (Negative) RSV RNA Qual (PCR) NEGATIVE (Negative) SARS-CoV-2 RNA (RT-PCR) NEGATIVE (Negative) 10/03/23 Range/Units 07:19 WBC (4.8-10.8) X10*3/uL RBC (4.20-5.50) X10*6/uL Hgb (12.0-16.0) g/dl Hct (37.0-47.0) % MCV (80.0-98.0) fL MCH (27.0-33.0) pg MCHC (31.0-35.0) g/dl RDW (11.0-16.0) % Plt Count (160-400) X10*3/uL MPV (9.4-12.3) fL Immature Gran % (Auto) (0.0-0.4) % Neut % (Auto) (45-73) % Lymph % (Auto) (20-40) % Centre % (Auto) (2-11) % Eos % (Auto) (0-4) % Baso % (Auto) (0-2) % Lymph # (Auto) (1.2-4.9) X10*3/uL Centre # (Auto) (0.1-1.2) X10*3/uL Eos # (Auto) (0.0-0.4) X10*3/uL Baso # (Auto) (0.0-0.2) X10*3/uL Abs Immat Gran (auto) (0.00-0.03) X10*3/uL Absolute Neuts (auto) (2.0-8.3) x10*3/uL Absolute Nucleated RBC (0.0-0.012) X10*3/uL Nucleated RBC % (auto) (0.0-0.2) /100WBC Hold Purple Top Hold Blue Top VBG pH (7.32-7.43) VBG pCO2 mmHg VBG pO2 mmHg VBG HCO3 (22-26) mmol/L VBG O2 Saturation % VBG Base Excess mmol/L Sodium (135-145) mmol/L Potassium (3.3-5.1) mmol/L Chloride (96-108) mmol/L Carbon Dioxide (22-29) mmol/L Anion Gap (12-20) BUN (9-16) mg/dL Creatinine (0.5-1.4) mg/dL Estim Creat Clear Calc Estimated GFR Random Glucose (60-115) mg/dL Lactic Acid 0.8 (0.5-2.0) mmol/L Calcium (8.4-10.2) mg/dL Total Bilirubin (0.0-1.0) mg/dL AST (5-31) U/L ALT (0-31) U/L Alkaline Phosphatase (39-117) U/L Troponin I High Sens (<3.5-17.0) ng/L B-Natriuretic Peptide (<100) pg/mL Total Protein (6.5-8.0) g/dL Albumin (3.5-5.0) g/dL Influenza Type A (PCR) (Negative) Influenza Type B (PCR) (Negative) RSV RNA Qual (PCR) (Negative) SARS-CoV-2 RNA (RT-PCR) (Negative) Independent Interpretation I performed an independent interpretation of an: EKG and Plain X-Ray Interpretation: EKG sinus tachycardia at a ventricular rate of 101 beats per minute, SC interval 136. No ST elevation or depression. Chest x-ray with no acute consolidations noted. Radiology Impression Discussion of test interpretation with radiology: I have reviewed the radiologist's reading. Radiologist Impression: EXAMINATION: XR CHEST CLINICAL INFORMATION: Shortness of breath COMPARISON: Chest 07/21/2023 TECHNIQUE: AP upright portable view of the chest was obtained. 8:00 AM FINDINGS: The lungs are well inflated. No focal consolidation, interstitial pulmonary edema or pneumothorax. Symmetrical nodular densities projected over the lung bases are consistent with nipple shadows. No pleural effusion. The cardiomediastinal silhouette is within normal limits. No acute osseous abnormality. XR/XR chest 1V IMPRESSION: No acute cardiopulmonary disease. Dictated By: Radha Mcgee MD Critical Care Time Critical Care Time Critical Care Time: Yes Total Critical Care Time: 40 Attestation: I have personally provided critical care time exclusive of time spent on separately billable procedures. Time includes review of lab data, radiology results, discussion with consultants, and monitoring for potential decompensation. Intervention performed as documented. Discharge Plan Discharge Clinical Impression: COPD (chronic obstructive pulmonary disease) Patient Disposition: Admitted As Inpatient
[2023-10-03 07:19] LABS: Venous Blood Gas Refer to POC result
[2023-10-03 07:20] LABS: VBG Base Excess 3.8 mmol/L; VBG HCO3 31 mmol/L (22-26); VBG pCO2 58 mmHg; VBG pH 7.33 (7.32-7.43); VBG pO2 31 mmHg
[2023-10-03 07:25] LABS: Alanine Aminotransferase 10 U/L (0-31); Albumin Level 4.1 g/dL (3.5-5.0); Alkaline Phosphatase 61 U/L (39-117); Anion Gap 14 (12-20); Aspartate Amino Transferase 18 U/L (5-31); Bilirubin Total 0.7 mg/dL (0.0-1.0); Blood Urea Nitrogen 17 mg/dL (9-16); Calcium 10.2 mg/dL (8.4-10.2); Carbon Dioxide 30 mmol/L (22-29); Chloride 102 mmol/L (96-108); Creatinine Clr Calc Pharmacy 47.9; Estimated Glomerular Filt Rate 57; Glucose Random 110 mg/dL (60-115); Potassium 3.9 mmol/L (3.3-5.1); Sodium 142 mmol/L (135-145); Total Protein 6.9 g/dL (6.5-8.0)
[2023-10-03 07:37] LABS: Lactic Acid 0.8 mmol/L (0.5-2.0)
[2023-10-03 07:40] LABS: Troponin-I High Sensitivity < 2.7 ng/L (<3.5-17.0)
[2023-10-03] MEDS: methylPREDNISolone Sod Succ 125 MG/2 ML VIAL IVPUSH (07:43)
[2023-10-03 07:55] LABS: B Type Natriuretic Peptide < 10 pg/mL (<100)
[2023-10-03 08:04] LABS: Influenza A PCR NEGATIVE (Negative); Influenza B PCR NEGATIVE (Negative); Resp Syncy Virus RNA Qual PCR NEGATIVE (Negative); SARS COV2 PCR INHOUSE NEGATIVE (Negative)
--- NOTE | 2023-10-03 09:42 | PM.IMHP ---
History of Present Illness Date of Service: 10/03/23 Chief Complaint: sob 68F PMH htn, hld, copd, presented with sob. symptoms began about 3 days prior to presentation. sob, worse on exertion, now associated with non productive cough. similar to previous copd exacerbations. no fever or chills. no sick contacts. in ED hypoxic to 77% on room air, recovered on 2L. cxr unremarkable. continues to smoke. Review of Systems Review of Systems: Yes all other systems are reviewed and are negative [facility] Medical History (Updated 10/03/23 @ 09:43 by Francisco Salgado MD) COPD (chronic obstructive pulmonary disease) Family History Mother Breast CA Surgical History H/O total hysterectomy Hx of colonoscopy (~05/2019) History of tubal ligation Social History Household Members: None Household Members Other:: goes to significant other house 3x a week Housing: Apartment Housing Other:: 2 family house Do you presently have visiting nurse or other home services: Yes Alcohol intake: current Alcohol intake frequency: does not drink Patient Tobacco Use Status: Current someday Tobacco user Tobacco use type: Cigarette Cigarettes Per Day: 3 Smoked in Last 30 Days: No e-Cigarette/Vaping Use: Never Used Second Hand Smoke Exposure: Yes Use of substances other than those prescribed or required for medical reasons: No Substance Use Type: Marijuana Advance Directives: Yes Advance Directives Information Provided: No Advance Directives on File: No service: No Current occupational status: retired [employer] Allergies Allergy/AdvReac Type Severity Reaction Status Date / Time No Known Allergies Allergy Verified 09/21/23 11:58 [No Known Allergies*] Active Medications: Current Medications Albuterol/Ipratropium (Albuterol/Iprat 2.5/0.5mg 3 Ml Ampul.Neb) 3 ml INHALE RQ4H WHILE AWAKE AD[facility]AN Azithromycin (Azithromycin 500 Mg Tablet) 500 mg PO Q24H AD[facility]AN Ceftriaxone Sodium 1 gm/ (Sodium Chloride) 50 mls @ 100 mls/hr IV ONCE ONE Stop: 10/03/23 09:43 Methylprednisolone Sodium Succinate (Methylprednisolone Sod Succ 40 Mg/Ml Vial) 40 mg IVPUSH Q12H [facility] Home Medications Medication Instructions Recorded Confirmed Last Taken Type simvastatin 10 mg tablet 10 mg PO DAILY 01/28/21 09/21/23 07/20/23 History albuterol sulfate 90 mcg/actuation 2 puff PO Q4H PRN Shortness Of 02/03/22 09/21/23 07/20/23 History aerosol inhaler Breath Or Wheezing amlodipine 5 mg tablet 5 mg PO DAILY 02/03/22 09/21/23 07/20/23 History fluticasone furoate 200 1 puff inhalation DAILY 04/13/22 09/21/23 07/20/23 History mcg-vilanterol 25 mcg/dose inhalation powder (Breo Ellipta) albuterol sulfate 1.25 mg/3 mL 1.25 mg inhalation Q4H PRN Wheezing 07/21/23 09/21/23 07/20/23 History solution for nebulization amitriptyline 10 mg tablet 10 mg PO BEDTIME PRN Insomnia 07/21/23 09/21/23 Unknown History cetirizine 10 mg tablet 10 mg PO QAM 07/21/23 09/21/23 07/20/23 History cholecalciferol (vitamin D3) 25 25 mcg PO QAM 07/21/23 09/21/23 07/20/23 History mcg (1,000 unit) capsule (Vitamin D3) nicotine 21 mg/24 hr daily 21 mg transdermal DAILY PRN 07/21/23 09/21/23 Unknown History transdermal patch Nicotine Cravings vitamin K2 100 mcg capsule 100 mcg PO DAILY 07/21/23 09/21/23 07/20/23 History Physical Exam Vital Signs and Narrative: Vital Signs: Last Vital Signs Temp 98.0 F 10/03/23 07:45 Pulse 93 10/03/23 07:45 Resp 15 10/03/23 07:45 BP 119/75 10/03/23 07:45 Pulse Ox 94 10/03/23 07:45 O2 Del Method Nasal Cannula 10/03/23 07:45 O2 Flow Rate 2 10/03/23 07:45 BMI result Body Mass Index 19.8 Results Labs 10/03/23 06:41 10/03/23 07:09 Labs: Laboratory Results - last 24 hr 10/03/23 10/03/23 10/03/23 06:41 07:09 07:12 MCV 92.1 MCH 30.8 MCHC 33.5 RDW 12.8 Plt Count 227 MPV 8.8 L Immature Gran % (Auto) 0.2 Neut % (Auto) 50.4 Lymph % (Auto) 25.3 [place] % (Auto) 11.3 H Eos % (Auto) 11.5 H Baso % (Auto) 1.3 Lymph # (Auto) 1.3 [place] # (Auto) 0.6 Eos # (Auto) 0.6 H Baso # (Auto) 0.1 Abs Immat Gran (auto) 0.01 Absolute Neuts (auto) 2.6 Absolute Nucleated RBC 0.000 Nucleated RBC % (auto) 0.0 Hold Purple Top SEE NOTE Hold Blue Top SEE NOTE VBG pH 7.33 VBG pCO2 58 VBG pO2 31 VBG HCO3 31 H VBG O2 Saturation 47.0 VBG Base Excess 3.8 Anion Gap 14 Estim Creat Clear Calc 47.9 Estimated GFR 57 Random Glucose 110 Lactic Acid Calcium 10.2 Total Bilirubin 0.7 AST 18 ALT 10 Alkaline Phosphatase 61 Troponin I High Sens < 2.7 B-Natriuretic Peptide < 10 Total Protein 6.9 Albumin 4.1 Influenza Type A (PCR) NEGATIVE Influenza Type B (PCR) NEGATIVE RSV RNA Qual (PCR) NEGATIVE SARS-CoV-2 RNA (RT-PCR) NEGATIVE 10/03/23 07:19 MCV MCH MCHC RDW Plt Count MPV Immature Gran % (Auto) Neut % (Auto) Lymph % (Auto) [place] % (Auto) Eos % (Auto) Baso % (Auto) Lymph # (Auto) [place] # (Auto) Eos # (Auto) Baso # (Auto) Abs Immat Gran (auto) Absolute Neuts (auto) Absolute Nucleated RBC Nucleated RBC % (auto) Hold Purple Top Hold Blue Top VBG pH VBG pCO2 VBG pO2 VBG HCO3 VBG O2 Saturation VBG Base Excess Anion Gap Estim Creat Clear Calc Estimated GFR Random Glucose Lactic Acid 0.8 Calcium Total Bilirubin AST ALT Alkaline Phosphatase Troponin I High Sens B-Natriuretic Peptide Total Protein Albumin Influenza Type A (PCR) Influenza Type B (PCR) RSV RNA Qual (PCR) SARS-CoV-2 RNA (RT-PCR) Imaging Radiologist's Impressions: Impressions Chest X-Ray 10/03/23 08:03 IMPRESSION: No acute cardiopulmonary disease. Assessment and Plan (1) COPD (chronic obstructive pulmonary disease): Status: Acute Plan 68F PMH htn, hld, copd, presented with sob sepsis and acute hypoxic respiratory failure due to copd with acute decompensation solmary holley azithro wean o2 as tolerated smoking cessation nicoderm htn amlodipine hld statin dvt prophylaxis - lovenox dnr/dni patient with copd exacerbation leading to hypoxia need for o2 supplement, close monitoring, expected to require atleast 2 midnights for symptom improvement and weaning off o2. Quality Stroke Does the patient have a stroke diagnosis?: No VTE Prior VTE?: No VTE Risk Level:: Medical - moderate - high VTE Device Contraindication: Treatment Not Indicated VTE Drug Contraindication: N/A - Med Ordered
--- NOTE | 2023-10-03 10:27 | PHA.MEDREC ---
Pharmacy Consult ? Medication Reconciliation Pharmacy has completed the medication reconciliation. Spoke with patient in ED who confirmed all meds
[2023-10-03] MEDS: Azithromycin 500 MG TABLET PO (10:30)
[2023-10-03] MEDS: cefTRIAXone sodium 1 GM in 0.9 % Sodium Chloride 50 ML IV (10:30)
[2023-10-03] MEDS: Albuterol/Iprat 2.5/0.5MG 3 ML AMPUL.NEB INHALE ×3 (11:40→19:08)
--- NOTE | 2023-10-03 19:02 | PC.NURSE ---
Assumed care of pt. Pt lying on stretcher, O2 at 2L via NC. Pt denies any acute distress at this time. Reviewed plan of care with pt. Pending bed for admission.
[2023-10-03] MEDS: Cyclobenzaprine HCl 10 MG TABLET PO (20:59)
[2023-10-03] MEDS: Atorvastatin Calcium 10 MG TABLET PO (20:59)
[2023-10-03] MEDS: 0.9 % Sodium Chloride Flush 3 ML SYRINGE IVFLUSH (21:47)
[2023-10-03] MEDS: methylPREDNISolone Sod Succ 40 MG/ML VIAL IVPUSH (21:47)
[2023-10-03] MEDS: Amitriptyline HCl 10 MG TABLET PO (21:47)
[2023-10-03] MEDS: Melatonin 3 MG TABLET 6 MG PO (23:57)
[2023-10-04] VITALS (7 sets, daily range): BP systolic 122–127; BP diastolic 72–89; PULSE 93–107; RESP 14–18; TEMP 36–37.3; O2SAT 93–99
[2023-10-04 06:33] LABS: Hemoglobin 14.3 g/dl (12.0-16.0); Mean Corpuscular Hemoglobin 31.3 pg (27.0-33.0); Mean Corpuscular Volume 91.9 fL (80.0-98.0); Mean Platelet Volume 8.9 fL (9.4-12.3); Platelet Count 217 X10*3/uL (160-400); Red Blood Count 4.57 X10*6/uL (4.20-5.50); Red Cell Distribution Width 12.6 % (11.0-16.0); White Blood Count 6.1 X10*3/uL (4.8-10.8)
[2023-10-04 06:49] LABS: Anion Gap 11 (12-20); Blood Urea Nitrogen 24 mg/dL (9-16); Calcium 10.2 mg/dL (8.4-10.2); Carbon Dioxide 29 mmol/L (22-29); Chloride 103 mmol/L (96-108); Creatinine Clr Calc Pharmacy 45.2; Estimated Glomerular Filt Rate 56; Glucose Fasting 149 mg/dL (60-99); Potassium 4.4 mmol/L (3.3-5.1); Sodium 139 mmol/L (135-145)
[2023-10-04] MEDS: Nicotine 21 MG PATCH.TD24 TRANSDERMA (08:12)
[2023-10-04] MEDS: Azithromycin 500 MG TABLET PO (08:13)
[2023-10-04] MEDS: Loratadine 10 MG TABLET PO (08:13)
[2023-10-04] MEDS: Cholecalciferol (Vitamin D3) 25 MCG TABLET PO (08:13)
[2023-10-04] MEDS: amLODIPine Besylate 5 MG TABLET PO (08:13)
[2023-10-04] MEDS: 0.9 % Sodium Chloride Flush 3 ML SYRINGE IVFLUSH ×3 (08:14→20:50)
[2023-10-04] MEDS: Enoxaparin Sodium 40 MG/0.4 ML SYRINGE SUBCUT (08:14)
[2023-10-04] MEDS: methylPREDNISolone Sod Succ 40 MG/ML VIAL IVPUSH ×2 (08:14→20:50)
[2023-10-04] MEDS: Albuterol/Iprat 2.5/0.5MG 3 ML AMPUL.NEB INHALE ×3 (08:41→20:18)
[2023-10-04] MEDS: Fluticasone/Vilanterol 200/25 BLST.W.DEV 1 PUFF INHALE (08:41)
--- NOTE | 2023-10-04 10:54 | HO.PM.IMPN ---
Subjective Subjective Date of Service: 10/04/23 Interval History: Feels mildly better still wheezy and dyspneic with exertyion on O2 supplement No overnight events Review of Systems Review of Systems: Yes all other systems are reviewed and are negative Physical Exam Vital Signs: Vital Signs: Last Vital Signs Temp 97.5 F 10/04/23 07:52 Pulse 101 H 10/04/23 08:41 Resp 18 10/04/23 08:41 BP 122/76 10/04/23 07:52 Pulse Ox 97 10/04/23 07:52 O2 Del Method Room Air 10/04/23 07:52 O2 Flow Rate 2 10/04/23 03:34 BMI result Body Mass Index 19.1 Const: Other: Constitutional : Awake, interactive, not in distress Neck : Normal inspection, Supple Cardiovascular : RRR, no JVP, no lower extremity edema Respiratory : fair bilateral air entry, bilateral scattered wheezing Gastrointestinal: soft, lax, Normal bowel sounds, Non tender Skin : Warm, Dry Neurological : Alert & oriented x3, No focal deficit Objective Data Active Medications Acetaminophen (Acetaminophen 325 Mg Tablet) 650 mg PO Q6H PRN PRN Reason: Pain, Mild (Pain Scale 1-3) Albuterol/Ipratropium (Albuterol/Iprat 2.5/0.5mg 3 Ml Ampul.Neb) 3 ml INHALE RQ4H WHILE AWAKE [facility] Last Admin: 10/04/23 08:41 Dose: 3 ml Documented By: OSMAN Amitriptyline HCl (Amitriptyline Hcl 10 Mg Tablet) 10 mg PO BEDTIME PRN PRN Reason: Insomnia Last Admin: 10/03/23 21:47 Dose: 10 mg Documented By: ELLA Amlodipine Besylate (Amlodipine Besylate 5 Mg Tablet) 5 mg PO DAILY [facility]; Protocol Last Admin: 10/04/23 08:13 Dose: 5 mg Documented By: RALPH Atorvastatin Calcium (Atorvastatin Calcium 10 Mg Tablet) 10 mg PO BEDTIME [facility] Last Admin: 10/03/23 20:59 Dose: 10 mg Documented By: LIBBY Azithromycin (Azithromycin 500 Mg Tablet) 500 mg PO Q24H [facility] Last Admin: 10/04/23 08:13 Dose: 500 mg Documented By: RALPH Cyclobenzaprine HCl (Cyclobenzaprine Hcl 10 Mg Tablet) 10 mg PO BEDTIME [facility] Last Admin: 10/03/23 20:59 Dose: 10 mg Documented By: LIBBY Enoxaparin Sodium (Enoxaparin Sodium 40 Mg/0.4 Ml Syringe) 40 mg SUBCUT Q24H [facility] Last Admin: 10/04/23 08:14 Dose: 40 mg Documented By: RALPH Fluticasone/Vilanterol (Fluticasone/Vilanterol 200/25 Blst.W.Dev) 1 puff INHALE DAILY [facility] Last Admin: 10/04/23 08:41 Dose: 1 puff Documented By: OSMAN Loratadine (Loratadine 10 Mg Tablet) 10 mg PO DAILY [facility] Last Admin: 10/04/23 08:13 Dose: 10 mg Documented By: RALPH Melatonin (Melatonin 3 Mg Tablet) 6 mg PO BEDTIME PRN PRN Reason: Insomnia Last Admin: 10/03/23 23:57 Dose: 6 mg Documented By: ELLA Methylprednisolone Sodium Succinate (Methylprednisolone Sod Succ 40 Mg/Ml Vial) 40 mg IVPUSH Q12H [facility] Last Admin: 10/04/23 08:14 Dose: 40 mg Documented By: RALPH Nicotine (Nicotine 21 Mg Patch.Td24) 21 mg TRANSDERMA DAILY [facility] Last Admin: 10/04/23 08:12 Dose: 21 mg Documented By: RALPH Ondansetron HCl (Ondansetron Hcl 4 Mg/2 Ml Vial) 4 mg IVPUSH Q8H PRN PRN Reason: Nausea and Vomiting Sodium Chloride (0.9 % Sodium Chloride Flush 3 Ml Syringe) 3 ml IVFLUSH QSHIFT [facility] Last Admin: 10/04/23 08:14 Dose: 3 ml Documented By: RALPH Vitamin D (Cholecalciferol (Vitamin D3) 25 Mcg Tablet) 25 mcg PO DAILY [facility] Last Admin: 10/04/23 08:13 Dose: 25 mcg Documented By: RALPH Labs 10/04/23 05:43 10/04/23 05:43 Labs: Laboratory Results - last 24 hr 10/04/23 05:43 MCV 91.9 MCH 31.3 MCHC 34.0 RDW 12.6 Plt Count 217 MPV 8.9 L Absolute Nucleated RBC 0.000 Nucleated RBC % (auto) 0.0 Anion Gap 11 L Estim Creat Clear Calc 45.2 Estimated GFR 56 Fasting Glucose 149 H Calcium 10.2 Microbiology Microbiology Results: Microbiology 10/03/23 07:19 Blood Culture - Preliminary Blood - Venous No growth after 24 hours. 10/03/23 07:10 Blood Culture - Preliminary Blood - Venous No growth after 24 hours. Assessment and Plan (1) COPD (chronic obstructive pulmonary disease): Status: Acute Plan 68F PMH htn, hld, copd, presented with sob Acute hypoxic respiratory failure due to copd with acute decompensation Improving Continue solumerdol, duonebs, azithro smoking cessation; nicoderm wean o2 as tolerated htn amlodipine hld statin dvt prophylaxis - lovenox dnr/dni patient with copd exacerbation leading to hypoxia need for o2 supplement, close monitoring, expected to require overnight hospital stay for symptom improvement and weaning off o2. Quality Stroke Does the patient have a stroke diagnosis?: No VTE Prior VTE?: No VTE Risk Level:: Medical - moderate - high VTE Device Contraindication: Treatment Not Indicated VTE Drug Contraindication: N/A - Med Ordered
--- NOTE | 2023-10-04 11:04 | MHC.CM.PN ---
IMM DELIVERED PT LIVES ALONE BUT HAS FRIENDS THAT LIVE NEARBY TO HELP WHEN NEEDED. INDEPENDENT AT BASELINE. + HCP AT HOME BUT WILLING TO COMPLETE A NEW ONE NO ONE CAN BRING IN COPY. PCP DR. WALLIS. DP: HOME, NO SERVICES ANTICIPATED. PT HAS OWN [facility] HOME. CM WILL CONTINUE TO FOLLOW FOR ANY CHANGE IN DC PLAN/NEEDS
[2023-10-04] MEDS: Cyclobenzaprine HCl 10 MG TABLET PO (20:50)
[2023-10-04] MEDS: Atorvastatin Calcium 10 MG TABLET PO (20:50)
[2023-10-04] MEDS: Amitriptyline HCl 10 MG TABLET PO (23:32)
[2023-10-04] MEDS: Melatonin 3 MG TABLET 6 MG PO (23:33)
[2023-10-05 03:43] VITALS: BP 137/87; PULSE 76; RESP 16; TEMP 36.6; O2SAT 95
[2023-10-05 07:27] VITALS: BP 120/79; PULSE 90; RESP 18; TEMP 36.6; O2SAT 93
[2023-10-05] MEDS: Enoxaparin Sodium 40 MG/0.4 ML SYRINGE SUBCUT (07:46)
[2023-10-05] MEDS: Cholecalciferol (Vitamin D3) 25 MCG TABLET PO (07:46)
[2023-10-05] MEDS: amLODIPine Besylate 5 MG TABLET PO (07:46)
[2023-10-05] MEDS: Nicotine 21 MG PATCH.TD24 TRANSDERMA (07:46)
[2023-10-05] MEDS: 0.9 % Sodium Chloride Flush 3 ML SYRINGE IVFLUSH (07:47)
[2023-10-05] MEDS: Loratadine 10 MG TABLET PO (07:47)
[2023-10-05] MEDS: Azithromycin 500 MG TABLET PO (07:54)
[2023-10-05] MEDS: Acetaminophen 325 MG TABLET 650 MG PO (07:54)
[2023-10-05] MEDS: Fluticasone/Vilanterol 200/25 BLST.W.DEV 1 PUFF INHALE (08:11)
[2023-10-05] MEDS: Albuterol/Iprat 2.5/0.5MG 3 ML AMPUL.NEB INHALE ×3 (08:11→15:34)
[2023-10-05 08:13] VITALS: PULSE 78; RESP 18; O2SAT 95
[2023-10-05] MEDS: methylPREDNISolone Sod Succ 40 MG/ML VIAL IVPUSH (11:31)
[2023-10-05 11:47] VITALS: PULSE 100; RESP 18; O2SAT 95
--- NOTE | 2023-10-05 12:08 | PM.DS ---
DS: Providers Provider Date of Service: 10/05/23 Date of admission: 10/03/23 09:41 Primary care physician: Anne Caballero MD DS: Diagnosis Discharge Diagnosis (1) COPD (chronic obstructive pulmonary disease): Status: Acute DS: Summary Hospital Course Hospital Course: Admission note HPI 68F PMH htn, hld, copd, presented with sob. symptoms began about 3 days prior to presentation. sob, worse on exertion, now associated with non productive cough. similar to previous copd exacerbations. no fever or chills. no sick contacts. in ED hypoxic to 77% on room air, recovered on 2L. cxr unremarkable. continues to smoke. Hospital course The patient was admitted for treatment of Acute hypoxic respiratory failure due to copd with acute decompensation. responded well to treatment with Solumerdol, duonebs, azithromycin with good response over the course of hospital stay as she was weaned off O2 and was able to ambulate on room air with no reported dyspnea. for smoking cessation; placed nicoderm and advised to avoid smoking. Take Azithromycin and Prednisone as prescribed Nicotine patches daily, avoid smoking use home inhalers Time Attestation Discharge coordination time: Greater than 30 minutes Quality: Safe Use of Opioids Does Pt have an Active Cancer Diagnosis on the Problem List?: No Quality: Stroke Does the patient have a stroke diagnosis?: No Physical Exam Vital Signs: Vital Signs: Last Vital Signs Temp 98 F 10/05/23 07:27 Pulse 100 10/05/23 11:47 Resp 18 10/05/23 11:47 BP 120/79 10/05/23 07:27 Pulse Ox 93 10/05/23 07:27 O2 Del Method Room Air 10/05/23 07:27 O2 Flow Rate 2 10/04/23 15:11 BMI result Body Mass Index 19.1 Const: Other: Constitutional : Awake, interactive, not in distress Neck : Normal inspection, Supple Cardiovascular : RRR, no JVP, no lower extremity edema Respiratory : good bilateral air entry, no crackles, wheezes or rhonchi Gastrointestinal: soft, lax, Normal bowel sounds, Non tender Skin : Warm, Dry Neurological : Alert & oriented x3, No focal deficit DS: Data Data Completed and Pending Labs on day of discharge: Preliminary micro results at discharge 10/03/23 07:19 Blood Culture - Preliminary Blood - Venous No growth after 48 hours. 10/03/23 07:10 Blood Culture - Preliminary Blood - Venous No growth after 48 hours. Imaging Chest x-ray: Radiologist's impression: ITS Impressions Chest X-Ray 10/03/23 08:03 IMPRESSION: No acute cardiopulmonary disease. Discharge Plan Discharge Anticipated Discharge Date/Time: 10/05/23 11:52 Patient Disposition: Home, Self-Care Discharge Diagnosis: COPD exacerbation Referrals: Anne Caballero MD [Primary Care Provider] - 1 Week Discharge Medications: New nicotine 21 mg/24 hr Patch 24 Hour 21 mg transdermal DAILY Qty: 30 0RF azithromycin 500 mg Tablet 500 mg PO Q24H Qty: 3 0RF prednisone 20 mg tablet 40 mg PO DAILY Qty: 6 0RF Continued fluticasone furoate-vilanterol [Breo Ellipta] 200-25 mcg/dose blister with device 1 puff INHALATION DAILY cyclobenzaprine 10 mg tablet 10 mg PO BEDTIME Rx Instructions: side effect is drowsiness. Do not take at work or while driving. cetirizine 10 mg tablet 10 mg PO DAILY albuterol sulfate 1.25 mg/3 mL solution for nebulization 1.25 mg inhalation Q4H PRN (Reason: Wheezing) cholecalciferol (vitamin D3) [Vitamin D3] 25 mcg (1,000 unit) capsule 25 mcg PO DAILY amitriptyline 10 mg Tablet 10 mg PO BEDTIME PRN (Reason: Insomnia) simvastatin 10 mg tablet 10 mg PO BEDTIME amlodipine 5 mg tablet 5 mg PO DAILY albuterol sulfate 90 mcg/actuation HFA aerosol inhaler 2 puff PO Q4H PRN (Reason: Shortness Of Breath Or Wheezing) Discharge Orders: Discharge Order (Routine); Ordered 10/05/23 Ordered By: Esha Hung Diet: Advance to usual diet Activity on Discharge: As tolerated Stand Alone Forms: Patient Portal Discharge page Care Plan Goals: Read below Health Concerns: Read below Plan of Treatment: Read below Assessment: Take Azithromycin and Prednisone as prescribed Nicotine patches daily, avoid smoking use home inhalers
--- NOTE | 2023-10-05 12:53 | MHC.CM.PN ---
PT TO DC HOME TODAY VIA PRIVATE TRANSPORT NO SERVICES INDICATED
[2023-10-05 15:35] VITALS: PULSE 104; RESP 18; O2SAT 93
--- NOTE | 2023-10-18 13:24 | P.CDIM_ITS ---
PROVIDER RESPONSE TEXT: To clarify, the appropriate diagnosis supported by the clinical indicators: After study, Sepsis has been ruled out QUERY TEXT: PHYSICIAN'S DOCUMENTATION REQUEST Date of Query: 10/10/2023 07:53 AM EST Patient Name: Juana Lopez Admit Date: 10/03/2023 Dear Esha Hung, A review of the medical record indicates additional documentation may be needed. Please review below and update the documentation accordingly. Documentation on progress note dated 10/03/23 included the diagnosis of sepsis. The patient's infectious clinical indicators include: Per Hospitalist Progress Note: sepsis and acute hypoxic respiratory failure due to copd with acute decompensation mary mayo azithro wean o2 as tolerated smoking cessation nicoderm On 10/03/23: WBC 5.2 LA .8 Heart rate 105 Respiratory rate 28 Recognized standard criteria for this condition and other infectious definitions includes: Sepsis Systemic manifestations of infection, with 2 or more SIRS criteria which include: Fever > 100.4?F or hypothermia < 96.8?F Leukocytosis - WBC > 12,000 or leukopenia, WBC < 4,000, or > 10% bands Tachycardia- > 90 beats/minute Tachypnea- RR > 20 breaths/minute or PaCO2 < 32mmHg Source: [employer] Manual 2013 Documentation should include the known or suspected organism, and the underlying infection, such as U TI or pneumonia Based on the above information and the recognized standard for sepsis, could you please clarify if th is diagnoses is still accurate and reflective of the patient's condition to ensure quality of the medical record. The diagn osis of Sepsis is not included in the Discharge Summary on 10/05/23 Sepsis is/was present on admission and is a clinical diagnosis After study, Sepsis has been ruled out Other (explain) Clinically unable to determine (explain) Thank you, Machelle Jimenez RN Use of terms such as suspected, likely, concern for, or probable (associated with a specific diagnosi s that is being evaluated, monitored, or treated as if it exists) are acceptable and can be coded in the inpatient se tting, when documented at the time of discharge. Please use your independent medical judgment in providing your response. THIS QUERY IS PART OF THE PERMANENT MEDICAL RECORD
== END 2023-10-05 16:46 | disposition home or self-care (01) | DRG 190 ==
LOC: HO.ED 09:17 → HO.EDOVER 10:48 → HO.S3 19:33
PROVIDERS: Emergency Medicine; Physician Assistant Medical; Admitting Provider Internal Medicine; Emergency Provider Emergency Medicine; PCP Student in an Organized Health Care Education/Training Program; Visit Provider Student in an Organized Health Care Education/Training Program
DX: J44.1 Chronic obstructive pulmonary disease with (acute) exacerbation (principal); J96.01 Acute respiratory failure with hypoxia; Z66 Do not resuscitate; F17.210 Nicotine dependence, cigarettes, uncomplicated; I10 Essential (primary) hypertension; E78.5 Hyperlipidemia, unspecified; Z20.822 Contact with and (suspected) exposure to COVID-19; Z71.6 Tobacco abuse counseling; Z79.51 Long term (current) use of inhaled steroids; Z79.899 Other long term (current) drug therapy
CPT/HCPCS: 0241U; 36415; 71045; 80048; 80053; 82803; 83605; 83880; 84484; 85025; 85027; 87040; 93005; 94640; 99285; J0696; J1650; J2920; J2930

== ENCOUNTER → 2023-10-03 06:43 | Outpatient (BNV) | payer OTHER, SELFPAY | PROVIDERS: Admitting Provider Internal Medicine; Emergency Provider Emergency Medicine; PCP Student in an Organized Health Care Education/Training Program; Visit Provider Internal Medicine Cardiovascular Disease | DX: R00.0 Tachycardia, unspecified (principal) | CPT/HCPCS: 93010 ==

== ENCOUNTER → 2023-10-03 06:55 | Outpatient (BNV) | payer OTHER, SELFPAY | PROVIDERS: Emergency Provider Emergency Medicine; PCP Student in an Organized Health Care Education/Training Program; Visit Provider Internal Medicine | DX: J44.1 Chronic obstructive pulmonary disease with (acute) exacerbation (principal); J96.01 Acute respiratory failure with hypoxia | CPT/HCPCS: 99223; 99232; 99238 ==

== ENCOUNTER 2023-11-16 05:11 | Emergency (ER) | payer OTHER, SELFPAY ==
[2023-11-16] VITALS (9 sets, daily range): BP systolic 123–161; BP diastolic 82–102; PULSE 85–96; RESP 12–18; TEMP 36.6–37.2; O2SAT 93–97; BMI 20.1
--- NOTE | ~2023-11-16 | XR_ITS ---
EXAMINATION: PELVIS AND LEFT HIP, LEFT FEMORAL CLINICAL INFORMATION: Pain COMPARISON: CT right hip, radiographs right hip and pelvis 12/04/2022 TECHNIQUE: Single view pelvis with 2 additional views left hip, 2 views left femur FINDINGS: Films of the left hip are suboptimal due to inability to position the patient as both legs were obtained and the patient was unable to straighten them. Allowing for this, no fracture or dislocation is seen. No pelvic fracture is identified. Degenerative changes are seen in the spine. The remainder of the femur appears unremarkable. The knee joint is not able to be evaluated because of inability to position the patient. XR/XR femur LT 2V IMPRESSION: No evidence of an acute osseous injury. Limited exam as described above.
--- NOTE | ~2023-11-16 | CT_ITS ---
EXAMINATION: CT PELVIS WITHOUT CONTRAST CLINICAL INFORMATION: Left hip pain. Possible fracture. COMPARISON: CT imaging of the right hip from 12/04/2022 and recent radiographs from 11/16/2023. TECHNIQUE: Noncontrast multidetector CT imaging examination of the pelvis is performed. Axial images and multiplanar reformatted images are reviewed. This CT examination was performed using dose optimization techniques as appropriate, variously including the following: *Automated exposure control *Adjustment of mA and/or kV according to patient size (this includes techniques or standardized protocols for targeted exams where dose is matched to indication/reason for exam; i.e. extremities or head) *Use of iterative reconstruction technique DLP: 288 mGy-cm FINDINGS: Bones are diffusely osteopenic. Multilevel facet arthropathy of the visualized lower lumbar spine. Mild osteoarthritis of sacroiliac joints. No evidence of sacral fracture. Alignment is normal at sacroiliac joints, pubic symphysis and hips. Pelvic bones have an intact appearance. No evidence of fracture or subluxation at either hip. At the left hip, there is [id number] superior joint space loss and osteophyte formation. A few small calcific/osteochondral bodies are present in the left hip joint. No hip joint effusion or pericapsular fluid collection. No soft tissue hematoma. No dilated bowel loops in the visualized lower abdomen or pelvis. No pelvic free fluid. Diverticula of the sigmoid colon without diverticulitis. Urinary bladder is well distended and has normal wall thickness. Status post hysterectomy. No adnexal mass or lymphadenopathy. The lower abdominal wall is normal. No inguinal hernia. CT/CT pelvis wo IV con IMPRESSION: * Moderate osteoarthritis of the left hip. * No acute fracture or malalignment in the visualized lower lumbar spine, pelvis or hips.
--- NOTE | ~2023-11-16 | XR_ITS ---
EXAMINATION: PELVIS AND LEFT HIP, LEFT FEMORAL CLINICAL INFORMATION: Pain COMPARISON: CT right hip, radiographs right hip and pelvis 12/04/2022 TECHNIQUE: Single view pelvis with 2 additional views left hip, 2 views left femur FINDINGS: Films of the left hip are suboptimal due to inability to position the patient as both legs were obtained and the patient was unable to straighten them. Allowing for this, no fracture or dislocation is seen. No pelvic fracture is identified. Degenerative changes are seen in the spine. The remainder of the femur appears unremarkable. The knee joint is not able to be evaluated because of inability to position the patient. XR/XR hip LT w PEL1V IMPRESSION: No evidence of an acute osseous injury. Limited exam as described above.
--- NOTE | ~2023-11-16 | XR_ITS ---
EXAMINATION: XR CHEST CLINICAL INFORMATION: Preop COMPARISON: 10/03/2023 TECHNIQUE: Frontal view of the chest was obtained. FINDINGS: The heart and pulmonary vessels appear normal. The lungs are mildly hyperinflated. There is some mild chronic increased reticular nodular markings seen. There is been no interval change when comparison is made to the prior radiograph. No infiltrates, pleural effusions or worrisome lung masses. XR/XR chest 1V IMPRESSION: No acute intrathoracic disease. Mild hyperinflation and chronic increased reticular nodular markings.
--- NOTE | 2023-11-16 06:19 | PC.NURSE ---
pt biba from home, a&ox4, respirations even and unlabored. pt reporting 2 months of chronic leg pain that has not subsided. pt reports being seen by PCP and given muscle relaxers without relief. pt reports she woke up last night with excruciating left hip pain and was unable to sleep or bare weight. cms in tact, and +pedal pulses noted bilaterally.
--- NOTE | 2023-11-16 07:08 | ED_ITS ---
HPI - General Adult General Chief complaint: Extremity Injury, Lower Stated complaint: L Leg pain Time Seen by Provider: 11/16/23 07:02 Source: patient, EMS and other (patient's friend at the bed side) Mode of arrival: EMS Limitations: no limitations History of Present Illness HPI narrative: Patient is a 68 year old assigned female at with a history of HTN, asthma, and HLD presenting to the emergency department today with left hip pain. Patient states that over the last year she has had bilateral thigh pain and this morning she woke up with left hip pain and unable to bare weight on the left lower extremity. Patient denies any dizziness, lightheadedness, abdominal pain, nausea, vomiting, fever, chills, blurry vision, double vision, loss of vision, chest pain, difficulty breathing, shortness of breath, back pain, night sweats, pain with urination, increased urinary frequency, increased urinary urgency, blood in her urine or stool, syncope or a near syncopal episode, recent trauma or falls, bowel incontinence, bladder incontinence, bowel retention, bladder retention, or any other complaints at this time. Relieving factors: immobilization Exacerbating factors: movement Associated symptoms: denies other symptoms Treatments prior to arrival: none Related Data Home Medications ?Medication ?Instructions ?Recorded ?Confirmed simvastatin 10 mg tablet 10 mg PO BEDTIME 01/28/21 10/03/23 albuterol sulfate 90 mcg/actuation 2 puff PO Q4H PRN Shortness Of 02/03/22 10/03/23 aerosol inhaler Breath Or Wheezing amlodipine 5 mg tablet 5 mg PO DAILY 02/03/22 10/03/23 fluticasone furoate 200 1 puff inhalation DAILY 04/13/22 10/03/23 mcg-vilanterol 25 mcg/dose inhalation powder (Breo Ellipta) albuterol sulfate 1.25 mg/3 mL 1.25 mg inhalation Q4H PRN Wheezing 07/21/23 10/03/23 solution for nebulization amitriptyline 10 mg tablet 10 mg PO BEDTIME PRN Insomnia 07/21/23 10/03/23 cetirizine 10 mg tablet 10 mg PO DAILY 07/21/23 10/03/23 cholecalciferol (vitamin D3) 25 25 mcg PO DAILY 07/21/23 10/03/23 mcg (1,000 unit) capsule (Vitamin D3) cyclobenzaprine 10 mg tablet 10 mg PO BEDTIME 10/03/23 10/03/23 Previous Rx's ?Medication ?Instructions ?Recorded azithromycin 500 mg tablet 500 mg PO Q24H #3 tabs 10/05/23 nicotine 21 mg/24 hr daily 21 mg transdermal DAILY #30 ea 10/05/23 transdermal patch prednisone 20 mg tablet 40 mg (2 x 20 mg) PO DAILY #6 tabs 10/05/23 Allergies Allergy/AdvReac Type Severity Reaction Status Date / Time No Known Allergies Allergy Verified 09/21/23 11:58 [No Known Allergies*] Review of Systems 2 Constitutional: Constitutional: Reports no additional constitutional complaints, Denies chills, Denies fever(s) and Denies night sweats Eyes: Eyes: Reports no additional eye complaints, Denies blurry vision, Denies change in vision, Denies diplopia, Denies eye discharge, Denies loss of vision and Denies eye pain ENT: Denies dizziness Cardiovascular: Cardiovascular: Reports no additional cardiovascular complaints, Denies chest pain, Denies lightheadedness, Denies Loss of Consciousness and Denies dyspnea Respiratory: Respiratory: Reports no additional respiratory complaints and Denies dyspnea Gastrointestinal: Gastrointestinal: Reports no additional gastrointestinal complaints, Denies abdominal pain, Denies melena, Denies hematochezia, Denies change in bowel habits and Denies change in stool character Genitourinary: Genitourinary: Denies hematuria, Denies urinary frequency, Denies dysuria, Denies urinary incontinence, Denies urinary hesitancy and Denies urinary urgency Musculoskeletal: Musculoskeletal: Reports no additional musculoskeletal complaints, Denies numbness and Denies tingling Comments: left hip pain Neurologic: Denies dizziness, Denies loss of vision, Denies numbness and Denies tingling Psychiatric: Psychiatric: Reports no additional psychiatric complaints Endocrine: Endocrine: Reports no additional endocrine complaints Hematologic/Lymphatic: Hematologic/Lymphatic: Reports no additional hematologic/lymphatic complaints Allergic/Immunologic: Allergic/Immunologic: Reports no additional allergic/immunologic complaints PMFSH Past Medical History Attestation statement: The following information was validated with the patient. (friend at the bed side that validated all provided information by the patient) Source: old records reviewed, nursing notes reviewed and other (patient's friend at the bed side provided additional history and confirmed the history provided by the patient) Medical History COPD (chronic obstructive pulmonary disease) Surgical History H/O total hysterectomy Hx of colonoscopy (~05/2019) History of tubal ligation Family History Family History Mother Breast CA Social History Social History Household Members: None Household Members Other:: goes to significant other house 3x a week Housing: Apartment Housing Other:: 2 family house Do you presently have visiting nurse or other home services: Yes ([facility]) Alcohol intake: current Alcohol intake frequency: does not drink Patient Tobacco Use Status: Current someday Tobacco user Tobacco use type: Cigarette Cigarettes Per Day: 4 Smoked in Last 30 Days: No e-Cigarette/Vaping Use: Never Used Second Hand Smoke Exposure: No Use of substances other than those prescribed or required for medical reasons: No Substance Use Type: Marijuana Advance Directives: Yes Advance Directives on File: Yes Advance Directives Date on File: 10/03/23 service: No Current occupational status: retired Physical Exam ED Vital Signs: Vital Signs - 24 hr 11/16/23 06:43 11/16/23 07:23 11/16/23 09:20 Temperature 98.6 F 98.9 F Pulse Rate 96 94 96 Respiratory Rate 16 18 14 Blood Pressure 135/89 161/99 H 154/102 H Pulse Oximetry 93 94 96 Oxygen Delivery Method Room Air Room Air Room Air Oxygen Flow Rate 11/16/23 11:23 Temperature Pulse Rate 90 Respiratory Rate 12 Blood Pressure 128/91 H Pulse Oximetry 95 Oxygen Delivery Method Nasal Cannula Oxygen Flow Rate 2 BMI result Body Mass Index 20.1 Const General: cooperative, no acute distress, alert and awake Nutritional Appearance: well nourished Orientation/consciousness: patient oriented x3 Limitations: no limitations HENMT Head: Yes normal to inspection and Yes atraumatic Ears: hearing grossly normal bilaterally and external ears normal General nose exam: Normal external nose present, no nasal discharge noted and no epistaxis Face and sinus: Yes normal facial exam, No abrasion and No laceration Mouth: Normal oral and palatal mucosa present, no drooling and no muffled voice Eyes General: appearance normal, both eyes and all related structures Periorbital: periorbital findings normal Eyelids: Yes eyelids normal Conjunctivae: conjunctivae normal Pupils: Equal, round and reactive pupils present EOM: EOMs intact bilaterally Neck Neck: Yes normal visual inspection, Yes full ROM and Yes no lymphadenopathy Chest Chest palpation & inspection: normal inspection of the chest Resp Effort & Inspection: normal respiratory effort and able to speak in complete sentences GI Inspection: Yes normal to inspection Back/Spine/Pelvis Cervical Spine: normal cervical lordosis and cervical ROM normal Thoracic/Lumbar Spine: thoracic and lumbar spine normal to inspection Pelvis: Other pelvic findings (left hip pain with palpation and movement) Coccyx: Other pelvic findings (left hip pain with palpation and movement) Neuro General: patient oriented x3 and moves all extremities Cranial nerves: Yes Equal, round and reactive pupils present Cognition (Neuro): normal cognition Motor exam (neuro): 5/5 motor strength present throughout Sensory Exam: Normal double simultaneous stimulation for sensation Coordination: [id number] test normal Extrem Other: patient unable to straighten left lower extremity without pain in the left hip, pain with the left hip ROM General: Yes capillary refill normal Psych Appearance: grossly normal Mental Status: mental status grossly normal Affect: normal affect Attitude: cooperative Thought process: Normal thought process present Thought content: Normal thought content present Insight: Good insight present (Psych) Medications Administered Discontinued Medications Generic Name Dose Route Start Last Admin Trade Name Ronnieq PRN Reason Stop Dose Admin Fentanyl 25 mcg 11/16/23 11:08 11/16/23 11:24 Fentanyl Citrate/Pf 100 Mcg/2 Ml Vial IVPUSH 11/16/23 11:09 25 mcg ONCE ONE Administration Protocol Morphine Sulfate 4 mg 11/16/23 09:03 11/16/23 09:22 Morphine Sulfate 4 Mg/Ml Cartridge IVPUSH 11/16/23 09:04 4 mg ONCE ONE Administration Protocol Ondansetron HCl 4 mg 11/16/23 09:03 11/16/23 09:21 Ondansetron Hcl 4 Mg/2 Ml Vial IVPUSH 11/16/23 09:04 4 mg ONCE ONE Administration Medical Decision Making Medical Decision Making MDM Narrative: Patient is a 68 year old assigned female at with a history of HTN, asthma, and HLD presenting to the emergency department today with left hip pain. Patient's physical exam was as noted in the physical exam portion of this note. Patient's blood work was unremarkable. Patient's urine showed no acute process. Patient's left hip x-ray and pelvis CT showed no acute fracture. I initially had concerns of an acute hip fx and consulted with the orthopedic team who confirmed no acute fracture. I explained my physical exam findings as well as all test results to the patient and the patient's friend at the bed side. I answered all questions asked by the patient and the patient's friend at the bed side. Patient received pain medication while in the department that she stated helped her pain significantly. Due to the patient's inability to bear weight on the left hip without pain, will place a physical therapy consult. Patient will likely need placement for rehabilitation. Patient and the patient's friend at the bed side verbalized agreement and understanding with this treatment plan and physical therapy evaluation with case management involvement. Physician observation began at 1200. Differential Diagnosis Differential Diagnoses: The differential diagnosis associated with the presentation includes Left hip pain Left hip strain Osteoarthritis Left hip fracture Unsteady gait Admission/Observation Consideration of admission/observation: Escalation of care including admission/observation considered Patient would have been admitted to the hospital had her work up had any findings where hospital admission was appropriate and her clinical presentation warranted hospital admission. Consult Healthcare Provider Management of the patient was discussed with: Instructional Material Director (spoke with the orthopedic team as noted in the MDM rationale portion of this note) Lab Data [facility] Lab Attestation statement: I reviewed the patient's lab results. My interpretation of these results are in the MDM Rationale portion of this note. 11/16/23 09:08 11/16/23 10:06 Labs: Lab Results 11/16/23 11/16/23 Range/Units 09:08 10:06 WBC 6.6 (4.8-10.8) X10*3/uL RBC 4.67 (4.20-5.50) X10*6/uL Hgb 14.5 (12.0-16.0) g/dl Hct 42.3 (37.0-47.0) % MCV 90.6 (80.0-98.0) fL MCH 31.0 (27.0-33.0) pg MCHC 34.3 (31.0-35.0) g/dl RDW 13.0 (11.0-16.0) % Plt Count 239 (160-400) X10*3/uL MPV 8.7 L (9.4-12.3) fL Immature Gran % (Auto) 0.5 H (0.0-0.4) % Neut % (Auto) 93.5 H (45-73) % Lymph % (Auto) 4.3 L (20-40) % [place] % (Auto) 1.1 L (2-11) % Eos % (Auto) 0.3 (0-4) % Baso % (Auto) 0.3 (0-2) % Lymph # (Auto) 0.3 L (1.2-4.9) X10*3/uL [place] # (Auto) 0.1 (0.1-1.2) X10*3/uL Eos # (Auto) 0.0 (0.0-0.4) X10*3/uL Baso # (Auto) 0.0 (0.0-0.2) X10*3/uL Abs Immat Gran (auto) 0.03 (0.00-0.03) X10*3/uL Absolute Neuts (auto) 6.2 (2.0-8.3) x10*3/uL Absolute Nucleated RBC 0.000 (0.0-0.012) X10*3/uL Nucleated RBC % (auto) 0.0 (0.0-0.2) /100WBC Smear Tech's Comments VERIFIED Sodium 139 (135-145) mmol/L Potassium 3.7 (3.3-5.1) mmol/L Chloride 106 (96-108) mmol/L Carbon Dioxide 26 (22-29) mmol/L Anion Gap 11 L (12-20) BUN 18 H (9-16) mg/dL Creatinine 0.84 (0.5-1.4) mg/dL Estim Creat Clear Calc 55.4 Estimated GFR > 60 Random Glucose 146 H (60-115) mg/dL Calcium 9.7 (8.4-10.2) mg/dL Magnesium 2.1 (1.6-2.6) mg/dL Total Bilirubin 0.6 (0.0-1.0) mg/dL AST 20 (5-31) U/L ALT 12 (0-31) U/L Alkaline Phosphatase 66 (39-117) U/L Total Protein 6.8 (6.5-8.0) g/dL Albumin 4.0 (3.5-5.0) g/dL Urine Color Yellow Urine Appearance Cloudy Urine pH 8.0 (5.0-9.0) Ur Specific [place] 1.010 (1.005-1.025) Urine Protein Negative (Neg-Trace) mg/dL Urine Glucose (UA) 100 H (Negative) mg/dL Urine Ketones Negative (Negative) mg/dL Urine Blood Negative (Negative) Urine Nitrite Negative (Negative) Ur Leukocyte Esterase Negative (Negative) Influenza Type A (PCR) NEGATIVE (Negative) Influenza Type B (PCR) NEGATIVE (Negative) RSV RNA Qual (PCR) NEGATIVE (Negative) SARS-CoV-2 RNA (RT-PCR) NEGATIVE (Negative) Independent Interpretation I performed an independent interpretation of an: Plain X-Ray and CT Scan Interpretation: My interpretation is in agreement with the radiologist's impression of these imaging studies. - EXAMINATION: PELVIS AND LEFT HIP, LEFT FEMORAL CLINICAL INFORMATION: Pain COMPARISON: CT right hip, radiographs right hip and pelvis 12/04/2022 TECHNIQUE: Single view pelvis with 2 additional views left hip, 2 views left femur FINDINGS: Films of the left hip are suboptimal due to inability to position the patient as both legs were obtained and the patient was unable to straighten them. Allowing for this, no fracture or dislocation is seen. No pelvic fracture is identified. Degenerative changes are seen in the spine. The remainder of the femur appears unremarkable. The knee joint is not able to be evaluated because of inability to position the patient. XR/XR hip LT w PEL1V IMPRESSION: No evidence of an acute osseous injury. Limited exam as described above. Dictated By: Karthikeyan Gardner MD Signed By: Electronically signed by Karthikeyan Gardner MD 11/16/23 0927 - EXAMINATION: PELVIS AND LEFT HIP, LEFT FEMORAL CLINICAL INFORMATION: Pain COMPARISON: CT right hip, radiographs right hip and pelvis 12/04/2022 TECHNIQUE: Single view pelvis with 2 additional views left hip, 2 views left femur FINDINGS: Films of the left hip are suboptimal due to inability to position the patient as both legs were obtained and the patient was unable to straighten them. Allowing for this, no fracture or dislocation is seen. No pelvic fracture is identified. Degenerative changes are seen in the spine. The remainder of the femur appears unremarkable. The knee joint is not able to be evaluated because of inability to position the patient. XR/XR femur LT 2V IMPRESSION: No evidence of an acute osseous injury. Limited exam as described above. Dictated By: Karthikeyan Gardner MD Signed By: Electronically signed by Karthikeyan Gardner MD 11/16/23 0927 - EXAMINATION: XR CHEST CLINICAL INFORMATION: Preop COMPARISON: 10/03/2023 TECHNIQUE: Frontal view of the chest was obtained. FINDINGS: The heart and pulmonary vessels appear normal. The lungs are mildly hyperinflated. There is some mild chronic increased reticular nodular markings seen. There is been no interval change when comparison is made to the prior radiograph. No infiltrates, pleural effusions or worrisome lung masses. XR/XR chest 1V IMPRESSION: No acute intrathoracic disease. Mild hyperinflation and chronic increased reticular nodular markings. Dictated By: Karthikeyan Gardner MD Signed By: Electronically signed by Karthikeyan Gardner MD 11/16/23 0938 - EXAMINATION: CT PELVIS WITHOUT CONTRAST CLINICAL INFORMATION: Left hip pain. Possible fracture. COMPARISON: CT imaging of the right hip from 12/04/2022 and recent radiographs from 11/16/2023. TECHNIQUE: Noncontrast multidetector CT imaging examination of the pelvis is performed. Axial images and multiplanar reformatted images are reviewed. This CT examination was performed using dose optimization techniques as appropriate, variously including the following: *Automated exposure control *Adjustment of mA and/or kV according to patient size (this includes techniques or standardized protocols for targeted exams where dose is matched to indication/reason for exam; i.e. extremities or head) *Use of iterative reconstruction technique DLP: 288 mGy-cm FINDINGS: Bones are diffusely osteopenic. Multilevel facet arthropathy of the visualized lower lumbar spine. Mild osteoarthritis of sacroiliac joints. No evidence of sacral fracture. Alignment is normal at sacroiliac joints, pubic symphysis and hips. Pelvic bones have an intact appearance. No evidence of fracture or subluxation at either hip. At the left hip, there is [id number] superior joint space loss and osteophyte formation. A few small calcific/osteochondral bodies are present in the left hip joint. No hip joint effusion or pericapsular fluid collection. No soft tissue hematoma. No dilated bowel loops in the visualized lower abdomen or pelvis. No pelvic free fluid. Diverticula of the sigmoid colon without diverticulitis. Urinary bladder is well distended and has normal wall thickness. Status post hysterectomy. No adnexal mass or lymphadenopathy. The lower abdominal wall is normal. No inguinal hernia. CT/CT pelvis wo IV con IMPRESSION: * Moderate osteoarthritis of the left hip. * No acute fracture or malalignment in the visualized lower lumbar spine, pelvis or hips. Dictated By: Garrison Castellon MD Signed By: Electronically signed by Garrison Castellon MD 11/16/23 4458 Radiology Impression Discussion of test interpretation with radiology: I have reviewed the radiologist's reading. Independent Historian Clinical information obtained from an independent historian. History obtained from or confirmed by: EMS (EMS provided additional history and confirmed the history provided by the patient) and Other (patient's friend at the bed side provided additional history and confirmed the history provided by the patient) Critical Care Time Critical Care Time Critical Care Time: Yes Total Critical Care Time: 126 Attestation: I spent 126 minutes of Critical Care Time with this patient. This does not include time spent on separately reported billable procedures. Discharge Plan Discharge Clinical Impression: Osteoarthritis, Acute hip pain Patient Disposition: Still a Patient Prescriptions: No Action fluticasone furoate-vilanterol [Breo Ellipta] 200-25 mcg/dose blister with device 1 puff INHALATION DAILY cyclobenzaprine 10 mg tablet 10 mg PO BEDTIME Rx Instructions: side effect is drowsiness. Do not take at work or while driving. nicotine 21 mg/24 hr Patch 24 Hour 21 mg transdermal DAILY Qty: 30 0RF azithromycin 500 mg Tablet 500 mg PO Q24H Qty: 3 0RF prednisone 20 mg tablet 40 mg PO DAILY Qty: 6 0RF cetirizine 10 mg tablet 10 mg PO DAILY albuterol sulfate 1.25 mg/3 mL solution for nebulization 1.25 mg inhalation Q4H PRN (Reason: Wheezing) cholecalciferol (vitamin D3) [Vitamin D3] 25 mcg (1,000 unit) capsule 25 mcg PO DAILY amitriptyline 10 mg Tablet 10 mg PO BEDTIME PRN (Reason: Insomnia) simvastatin 10 mg tablet 10 mg PO BEDTIME amlodipine 5 mg tablet 5 mg PO DAILY albuterol sulfate 90 mcg/actuation HFA aerosol inhaler 2 puff PO Q4H PRN (Reason: Shortness Of Breath Or Wheezing) Print Language: Upper Sorbian
[2023-11-16 09:14] LABS: Basophils Percent Auto 0.3 % (0-2); Eosinophils Percent Auto 0.3 % (0-4); Hematocrit 42.3 % (37.0-47.0); Hemoglobin 14.5 g/dl (12.0-16.0); Imm Gran Abs Auto 0.03 X10*3/uL (0.00-0.03); Imm Gran Pct Auto 0.5 % (0.0-0.4); Lymphocytes Absolute Auto 0.3 X10*3/uL (1.2-4.9); Lymphocytes Percent Auto 4.3 % (20-40); MANUAL DIFF FLAG SCAN; Mean Corpuscular HGB Conc 34.3 g/dl (31.0-35.0); Mean Corpuscular Volume 90.6 fL (80.0-98.0); Mean Platelet Volume 8.7 fL (9.4-12.3); Monocytes Absolute Auto 0.1 X10*3/uL (0.1-1.2); Monocytes Percent Auto 1.1 % (2-11); Neutrophils Absolute Auto 6.2 x10*3/uL (2.0-8.3); Neutrophils Percent Auto 93.5 % (45-73); Platelet Count 239 X10*3/uL (160-400); Red Blood Count 4.67 X10*6/uL (4.20-5.50); SCAN SMEAR FLAG 1; White Blood Count 6.6 X10*3/uL (4.8-10.8)
[2023-11-16 09:15] LABS: Appearance Urine Cloudy; Color Urine Yellow; Glucose Urine UA 100 mg/dL (Negative); Leukocyte Esterase Urine Negative (Negative); Nitrite Urine Negative (Negative); Urine Blood Negative (Negative); Urine Ketones Negative (Negative); Urine Protein Negative (Neg-Trace)
[2023-11-16] MEDS: ondansetron HCL 4 MG/2 ML VIAL IVPUSH (09:21)
[2023-11-16] MEDS: Morphine Sulfate 4 MG/ML CARTRIDGE IVPUSH (09:22)
[2023-11-16 09:36] LABS: SLIDE REVIEW VERIFIED
[2023-11-16 09:53] LABS: Influenza A PCR NEGATIVE (Negative); Influenza B PCR NEGATIVE (Negative); Resp Syncy Virus RNA Qual PCR NEGATIVE (Negative); SARS COV2 PCR INHOUSE NEGATIVE (Negative)
[2023-11-16 10:32] LABS: Alanine Aminotransferase 12 U/L (0-31); Alkaline Phosphatase 66 U/L (39-117); Anion Gap 11 (12-20); Aspartate Amino Transferase 20 U/L (5-31); Bilirubin Total 0.6 mg/dL (0.0-1.0); Blood Urea Nitrogen 18 mg/dL (9-16); Calcium 9.7 mg/dL (8.4-10.2); Carbon Dioxide 26 mmol/L (22-29); Chloride 106 mmol/L (96-108); Creatinine Clr Calc Pharmacy 55.4; Estimated Glomerular Filt Rate > 60; Glucose Random 146 mg/dL (60-115); Magnesium 2.1 mg/dL (1.6-2.6); Potassium 3.7 mmol/L (3.3-5.1); Sodium 139 mmol/L (135-145); Total Protein 6.8 g/dL (6.5-8.0)
[2023-11-16] MEDS: fentaNYL citrate/PF 100 MCG/2 ML VIAL 25 MCG IVPUSH (11:24)
--- NOTE | 2023-11-16 11:54 | P.CONOP_ITS ---
History of Present Illness HPI Consult date: 11/16/23 Chief complaint: L Leg pain Narrative: 68 year old female with PMH HTN, asthma, and HLD presenting to the emergency department today with left hip pain. Patient states that over the last year she has had bilateral thigh pain and this morning she woke up with left hip pain and unable to bare weight on the left lower extremity. She denies any type of trauma or fall. In the ED, patient had xrays which were concerning for a fracture, CT scan obtained which was negative for fracture or dislocation. Review of Systems 2 Review of Systems: Yes all other systems are reviewed and are negative [facility] Past Medical History Medical History COPD (chronic obstructive pulmonary disease) Family History Family History Mother Breast CA Surgical History Surgical History H/O total hysterectomy Hx of colonoscopy (~05/2019) History of tubal ligation Social History Social History Household Members: None Household Members Other:: goes to significant other house 3x a week Housing: Apartment Housing Other:: 2 family house Do you presently have visiting nurse or other home services: Yes ([facility]) Alcohol intake: current Alcohol intake frequency: does not drink Patient Tobacco Use Status: Current someday Tobacco user Tobacco use type: Cigarette Cigarettes Per Day: 4 Smoked in Last 30 Days: No e-Cigarette/Vaping Use: Never Used Second Hand Smoke Exposure: No Use of substances other than those prescribed or required for medical reasons: No Substance Use Type: Marijuana Advance Directives: Yes Advance Directives on File: Yes Advance Directives Date on File: 11/16/23 service: No Current occupational status: retired Meds Allergies Allergy/AdvReac Type Severity Reaction Status Date / Time No Known Allergies Allergy Verified 09/21/23 11:58 [No Known Allergies*] Home Medications ?Medication ?Instructions ?Recorded ?Confirmed ?Last Taken ?Type simvastatin 10 mg tablet 10 mg PO BEDTIME 01/28/21 11/17/23 10/02/23 History albuterol sulfate 90 mcg/actuation 2 puff PO Q4H PRN Shortness Of 02/03/22 11/17/23 07/20/23 History aerosol inhaler Breath Or Wheezing amlodipine 5 mg tablet 5 mg PO DAILY 02/03/22 11/17/23 10/02/23 History albuterol sulfate 1.25 mg/3 mL 1.25 mg inhalation Q4H PRN Wheezing 07/21/23 11/17/23 07/20/23 History solution for nebulization amitriptyline 10 mg tablet 10 mg PO BEDTIME PRN Insomnia 07/21/23 11/17/23 Unknown History cholecalciferol (vitamin D3) 25 25 mcg PO DAILY 07/21/23 11/17/23 10/02/23 History mcg (1,000 unit) capsule (Vitamin D3) cyclobenzaprine 10 mg tablet 10 mg PO BEDTIME 10/03/23 11/17/23 10/02/23 History Physical Exam 2 Vital Signs: Vital Signs: Last Vital Signs Temp 98.9 F 11/16/23 07:23 Pulse 90 11/16/23 11:23 Resp 12 11/16/23 11:23 BP 128/91 H 11/16/23 11:23 Pulse Ox 95 11/16/23 11:23 O2 Del Method Nasal Cannula 11/16/23 11:23 O2 Flow Rate 2 11/16/23 11:23 BMI result Body Mass Index 20.1 Const: General: cooperative and no acute distress O rientation/consciousness: patient oriented x3 Resp: Effort & Inspection: normal respiratory effort and able to speak in complete sentences Cardio: Peripheral pulses: Peripheral pulses 2+ throughout Neuro: General: patient oriented x3 Extrem: Other: Patient is holding her left leg in a flexed position and has pain when trying to straighten. She is NVI. Results Labs 11/16/23 09:08 11/16/23 10:06 Labs: Abnormal lab results 11/16/23 11/16/23 Range/Units 09:08 10:06 MPV 8.7 L (9.4-12.3) fL Immature Gran % (Auto) 0.5 H (0.0-0.4) % Neut % (Auto) 93.5 H (45-73) % Lymph % (Auto) 4.3 L (20-40) % [place] % (Auto) 1.1 L (2-11) % Lymph # (Auto) 0.3 L (1.2-4.9) X10*3/uL Anion Gap 11 L (12-20) BUN 18 H (9-16) mg/dL Random Glucose 146 H (60-115) mg/dL Urine Glucose (UA) 100 H (Negative) mg/dL H & H 11/16/23 Range/Units 09:08 Hgb 14.5 (12.0-16.0) g/dl Hct 42.3 (37.0-47.0) % All other labs normal. Assessment and Plan (1) Acute hip pain: Status: Inactive Plan Reviewed images with Dr Hall and confirmed there is no acute or chronic fracture / dislocation. Recommend PT eval to help with ROM and WB. She can f/u outpatient if needed. Procedures Date of Service Date of Service: 11/20/23
--- NOTE | 2023-11-16 14:20 | MHC.CM.ED ---
Received case management consult from Cyndie AGUILA. Patient came to the ER due to hip pain. Ortho consulted on patient and feels STR and pain management is necessary. Physical therapy eval completed. Short term rehab is recommended. Met with patient and friend in regards to discharge planning. Patient lives along, ambulates independently and had no services prior to coming to the ER. PCP verified. HCP completed, signed and witnessed. Original given to patient. Copy placed in chart. Referral broadcasted in [facility] to all facilities within 20 miles that are contracted with [facility]. [facility], [facility] [place], [facility], [facility] and [facility] are able to offer a bed. These options were discussed with patient. [facility] is 1st choice and has been asked to obtain insurance auth. Continue to monitor for d/c needs.
[2023-11-16] MEDS: Acetaminophen 325 MG TABLET 650 MG PO (15:27)
[2023-11-16] MEDS: oxyCODONE HCl Immed Release 5 MG TABLET PO ×2 (15:28→21:46)
--- NOTE | 2023-11-16 18:46 | MHC.EDTECH ---
THIS PCT ASSUMED CARE OF PATIENT AT 1500 ,VITALS TAKEN ,PATIENT WAS INCONTINENT OF URINE ,CARE GIVEN ,PATIENT WAS SET UP WITH DINNER .
--- NOTE | 2023-11-16 19:07 | MHC.CM.ED ---
Addendum entered by Gabriela Hall 11/16/23 19:13: Provider aware of d/c 4/5 at 11:30 am to [facility] [place]. Original Note: [facility] can accept patient 4/5. Requesting transport at 11am. Booked with [facility] for 11:30 am on 11/16. CTS ID # [id number]. Med Nec/face sheet and transfer sheet on chart. Pt aware. RN and provider aware. CM will follow for discharge planning.
--- NOTE | 2023-11-16 23:29 | MHC.EDTECH ---
This pct assumed care of Patient at 2300 ,vitals taken and fresh Pitcher water given ,Call root within Pt reach .
--- NOTE | 2023-11-17 00:01 | PC.NURSE ---
pt resting comfortably nad. pt moved from hallway into room; lights dimmed. pt requesting to sleep belongings and call root within reach.
--- NOTE | 2023-11-17 02:22 | MHC.EDTECH ---
0200 ROUNDING DONE ,PATIENT SLEEPING ,CALL HORTA WITHIN PATIENT REACH .
--- NOTE | 2023-11-17 03:20 | PC.NURSE ---
pt helped reposition to R. side. pillow placed between legs. nad. call root within reach.
[2023-11-17 05:32] VITALS: BP 167/98; PULSE 89; RESP 15; TEMP 36.6; O2SAT 94
--- NOTE | 2023-11-17 05:33 | MHC.EDTECH ---
am rounding done ,vitals taken ,patient was moved to a hospital bed ,care given ,Purewick empty ,output was 450 ml ,fresh ice water given ,Call root within Pt reach .
[2023-11-17] MEDS: oxyCODONE HCl Immed Release 5 MG TABLET PO (06:33)
[2023-11-17] MEDS: amLODIPine Besylate 5 MG TABLET PO (06:59)
[2023-11-17] MEDS: Cyclobenzaprine HCl 10 MG TABLET PO ×2 (07:00→11:17)
--- NOTE | 2023-11-17 10:16 | PHA.MEDREC ---
Pharmacy Consult ? Medication Reconciliation Pharmacy has reviewed the medication reconciliation.
--- NOTE | 2023-11-17 11:08 | PC.NURSE ---
patient alert and oriented with even and unlabored respirations. states her pain greatly improved after the muscle relaxer this morning and was able to sleep.
[2023-11-17 11:11] VITALS: BP 135/90; PULSE 85; RESP 16; TEMP 36.6; O2SAT 93
[2023-11-17 11:43] VITALS: BP 135/90; PULSE 85; RESP 16; TEMP 36.6; O2SAT 93
== END 2023-11-17 11:43 | disposition other institution (70) ==
PROVIDERS: Physician Assistant Medical; Emergency Provider Emergency Medicine; PCP Student in an Organized Health Care Education/Training Program
DX: M16.12 Unilateral primary osteoarthritis, left hip (principal); M79.605 Pain in left leg; R10.2 Pelvic and perineal pain; R26.2 Difficulty in walking, not elsewhere classified; M25.552 Pain in left hip; Z03.818 Encounter for observation for suspected exposure to other biological agents ruled out
CPT/HCPCS: 0241U; 71045; 72192; 73502; 73552; 80053; 81003; 83735; 85025; 96374; 96375; 97162; 99285; J2270; J2405; J3010

== ENCOUNTER → 2023-11-16 06:28 | Outpatient (BNV) | payer OTHER, SELFPAY | PROVIDERS: Emergency Provider Emergency Medicine; PCP Student in an Organized Health Care Education/Training Program; Visit Provider Physician Assistant | DX: M25.559 Pain in unspecified hip (principal) | CPT/HCPCS: 99281 ==

== ENCOUNTER 2024-01-17 09:37 | Outpatient (RCR) | payer OTHER, SELFPAY | END 2024-09-20 11:44 | disposition home or self-care (01) | LOC: HO.PT 09:37 | PROVIDERS: PCP Student in an Organized Health Care Education/Training Program; Visit Provider Student in an Organized Health Care Education/Training Program | DX: M25.552 Pain in left hip (principal) ==

== ENCOUNTER 2024-01-17 10:12 | Emergency (ER) | payer OTHER, SELFPAY ==
--- NOTE | ~2024-01-17 | XR_ITS ---
EXAMINATION: XR CHEST CLINICAL INFORMATION: Shortness of breath, COPD. COMPARISON: Chest radiograph 11/16/2023. TECHNIQUE: Frontal view of the chest was obtained. FINDINGS: Normal appearance of the cardiomediastinal silhouette. Stable hyperexpansion and minimal interstitial prominence in keeping with history of COPD. Equivocal new focal hazy opacities projecting over the right lower lobe. No pleural effusion or pneumothorax. No acute osseous findings. XR/XR chest 1V IMPRESSION: Equivocal new focal hazy opacities projecting over the right lower lobe. This could be artifactual and related with overlying soft tissues versus early infectious/inflammatory infiltrate. Recommend clinical correlation and follow-up to ensure resolution.
[2024-01-17 10:19] VITALS: BP 123/90; PULSE 88; RESP 26; TEMP 36.4; O2SAT 92; BMI 19.7
[2024-01-17 10:51] LABS: MANUAL DIFF FLAG NO
--- NOTE | 2024-01-17 10:55 | ED_ITS ---
HPI - SOB/Dyspnea General Chief Complaint: Dyspnea Stated Complaint: resp distress Time Seen by Provider: 01/17/24 10:37 Source: patient Limitations: no limitations History of Present Illness ED Provider: Isabela Dye PA-C HPI Narrative: 68 year old female with history of COPD, HTN, HLD, migraines who is presenting with shortness of breath x5 days, worse today. Shortness of breath worsened with exertion. Endorses productive cough of yellow sputum with runny nose also for the last 5 days. On breo inhaler daily for maintenance with albuterol inhaler prn and albuterol nebs which have not been helpful. She had prednisone left over from last admission for copd exacerbation and has been taking 20mg for last 3 days without improvement. Quit smoking 2 weeks ago, using patch. She denies assocaited chest pain. No abdominal pain, N/V/D and no fevers. MD elicited complaint: shortness of breath Pertinent past history: COPD Onset (ago): day(s) (5) Context: recent illness Timing: progressively worsening Exacerbating factors: exertion Relieving factors: rest Known history of: COPD Associated symptoms: cough and sputum production Treatment prior to arrival: bronchodilator Related Data Home oxygen amount: none Home Medications ?Medication ?Instructions ?Recorded ?Confirmed simvastatin 10 mg tablet 10 mg PO BEDTIME 01/28/21 11/17/23 albuterol sulfate 90 mcg/actuation 2 puff PO Q4H PRN Shortness Of 02/03/22 11/17/23 aerosol inhaler Breath Or Wheezing amlodipine 5 mg tablet 5 mg PO DAILY 02/03/22 11/17/23 albuterol sulfate 1.25 mg/3 mL 1.25 mg inhalation Q4H PRN Wheezing 07/21/23 11/17/23 solution for nebulization amitriptyline 10 mg tablet 10 mg PO BEDTIME PRN Insomnia 07/21/23 11/17/23 cholecalciferol (vitamin D3) 25 25 mcg PO DAILY 07/21/23 11/17/23 mcg (1,000 unit) capsule (Vitamin D3) cyclobenzaprine 10 mg tablet 10 mg PO BEDTIME 10/03/23 11/17/23 Previous Rx's ?Medication ?Instructions ?Recorded nicotine 21 mg/24 hr daily 21 mg transdermal DAILY #30 ea 10/05/23 transdermal patch amoxicillin 875 mg-potassium 1 tab PO BID #14 tabs 01/17/24 clavulanate 125 mg tablet azithromycin 250 mg tablet See Rx Instructions PO .COMPLEX #6 01/17/24 (Zithromax Z-Shiva) tabs prednisone 10 mg tablets in a dose See Rx Instructions .Route 01/17/24 pack .COMPLEX #48 ea Allergies Allergy/AdvReac Type Severity Reaction Status Date / Time No Known Allergies Allergy Verified 01/17/24 10:21 [No Known Allergies*] Review of Systems 2 Review of Systems: Yes all other systems are reviewed and are negative [facility] Past Medical History Medical History COPD (chronic obstructive pulmonary disease) Surgical History H/O total hysterectomy Hx of colonoscopy (~05/2019) History of tubal ligation Family History Family History Mother Breast CA Social History Social History Household Members: None Household Members Other:: goes to significant other house 3x a week Housing: Apartment Housing Other:: 2 family house Do you presently have visiting nurse or other home services: Yes ([facility]) Alcohol intake: current Alcohol intake frequency: does not drink Patient Tobacco Use Status: Current someday Tobacco user Tobacco use type: Cigarette Cigarettes Per Day: 4 e-Cigarette/Vaping Use: Never Used Second Hand Smoke Exposure: No Substance Use Type: Marijuana Advance Directives: Yes Advance Directives on File: Yes Advance Directives Date on File: 11/16/23 service: No Current occupational status: retired Physical Exam 2 Vital Signs: Vital Signs: Last Vital Signs Temp 98.2 F 01/17/24 12:52 Pulse 95 01/17/24 12:52 Resp 16 01/17/24 12:52 BP 144/81 H 01/17/24 12:52 Pulse Ox 95 01/17/24 12:52 O2 Del Method Room Air 01/17/24 12:52 BMI result Body Mass Index 19.7 Appearance: Alert. Oriented X3. mild resp acute distress. Head: normocephalic, atraumatic. Eyes: Pupils equal, round and reactive to light. ENT: Pharynx normal. No tonsillar swelling or exudate. Neck: Normal inspection. Neck supple. CVS: Normal heart rate and rhythm. Pulses normal. Respiratory: mild respiratory distress w/ RR 26. Breath sounds with inspiratory and expiratory wheezes throughout, speaking in complete sentences Abdomen: Soft and nontender. +BS x4 Skin: Skin warm and dry. Normal skin color. Normal skin turgor. No rashes. Extremities: No lower extremity edema. No joint swelling. Neuro/psych: Oriented X 3. No motor deficit. No sensory deficit. CN II-XII intact. Normal speech and cognition. Medications Administered Discontinued Medications Generic Name Dose Route Start Last Admin Trade Name Freq PRN Reason Stop Dose Admin Albuterol Sulfate 2.5 mg/ 0 mg 01/17/24 11:17 01/17/24 11:20 Albuterol/Ipratropium 3 ml INHALE 01/17/24 11:18 5 dose ONCE ONE Administration Magnesium Sulfate 2 gm in 50 mls @ 150 mls/hr 01/17/24 10:46 01/17/24 11:50 Magnesium Sulfate/H2o IV 01/17/24 11:05 Infused ONCE ONE Infusion Methylprednisolone Sodium Succinate 60 mg 01/17/24 10:46 01/17/24 10:58 Methylprednisolone Sod Succ 125 Mg/2 Ml Vial IVPUSH 01/17/24 10:47 60 mg ONCE ONE Administration Medical Decision Making Medical Decision Making [facility] Narrative: 68 year old female with history of COPD, HTN, HLD, migraines who is presenting with shortness of breath x5 days, worse today. On arrival to the ER patient's respiratory rate is in the mid 20s. She is able to speak in complete sentences and has inspiratory and expiratory wheezes throughout. E.d. bronch protocol was ordered. She was given a DuoNeb, 60 mg of IV Solu-Medrol as well as 2 g of magnesium with improvement in her respiratory status. She is feeling much better. Lab workup is unremarkable, no leukocytosis. Chest x-ray shows a subtle opacity in the right lower lobe. Will treat for community-acquired pneumonia. Upon reassessment patient's lung sounds are markedly improved, wheezing has improved as did her respiratory rate. Patient would like to be discharged home. Comfortable discharge with treatment for community-acquired pneumonia and COPD exacerbation. Will provide prednisone taper, she has plenty of nebulizer treatments at home. Encouraged follow-up with Pulmonary, she states she does not have a pulmonary doctor despite being admitted to the hospital twice in the last 6 months. Patient expressed understanding and is stable for discharge home. Return precautions were discussed. Differential Diagnosis Differential Diagnoses: The differential diagnosis associated with the presentation includes COPD exacerbation, asthma exacerbation, CHF exacerbation, pneumonia, bronchitis, viral syndrome Admission/Observation Consideration of admission/observation: Escalation of care including admission/observation considered Lab Data MDM Lab Attestation statement: I reviewed the patient's lab results. No leukocytosis, no anemia, no metabolic derangement. Mild elevation of calcium 01/17/24 10:46 01/17/24 10:46 Labs: Lab Results 01/17/24 01/17/24 01/17/24 Range/Units 10:46 10:55 11:10 WBC 7.2 (4.8-10.8) X10*3/uL RBC 4.74 (4.20-5.50) X10*6/uL Hgb 15.3 (12.0-16.0) g/dl Hct 45.0 (37.0-47.0) % MCV 94.9 (80.0-98.0) fL MCH 32.3 (27.0-33.0) pg MCHC 34.0 (31.0-35.0) g/dl RDW 13.4 (11.0-16.0) % Plt Count 289 (160-400) X10*3/uL MPV 8.2 L (9.4-12.3) fL Immature Gran % (Auto) 0.3 (0.0-0.4) % Neut % (Auto) 61.7 (45-73) % Lymph % (Auto) 22.0 (20-40) % [place] % (Auto) 13.0 H (2-11) % Eos % (Auto) 2.6 (0-4) % Baso % (Auto) 0.4 (0-2) % Lymph # (Auto) 1.6 (1.2-4.9) X10*3/uL [place] # (Auto) 0.9 (0.1-1.2) X10*3/uL Eos # (Auto) 0.2 (0.0-0.4) X10*3/uL Baso # (Auto) 0.0 (0.0-0.2) X10*3/uL Abs Immat Gran (auto) 0.02 (0.00-0.03) X10*3/uL Absolute Neuts (auto) 4.4 (2.0-8.3) x10*3/uL Absolute Nucleated RBC 0.000 (0.0-0.012) X10*3/uL Nucleated RBC % (auto) 0.0 (0.0-0.2) /100WBC VBG pH 7.52 H (7.32-7.43) VBG pCO2 30 mmHg VBG pO2 217 mmHg VBG HCO3 25 (22-26) mmol/L VBG O2 Saturation 100.0 % VBG Base Excess 3.2 mmol/L Sodium 142 (135-145) mmol/L Potassium 3.8 (3.3-5.1) mmol/L Chloride 102 (96-108) mmol/L Carbon Dioxide 29 (22-29) mmol/L Anion Gap 15 (12-20) BUN 30 H (9-16) mg/dL Creatinine 1.05 (0.5-1.4) mg/dL Estim Creat Clear Calc 43.5 Estimated GFR 52 Random Glucose 75 (60-115) mg/dL Calcium 10.8 H D (8.4-10.2) mg/dL Influenza Type A (PCR) NEGATIVE (Negative) Influenza Type B (PCR) NEGATIVE (Negative) RSV RNA Qual (PCR) NEGATIVE (Negative) SARS-CoV-2 RNA (RT-PCR) NEGATIVE (Negative) ABG Data ABG Results: Attestation ABG: I personally reviewed and interpreted this ABG as follows: Interpretation: Respiratory alkalosis without hypoxia Independent Interpretation I performed an independent interpretation of an: Plain X-Ray Interpretation: Trace right lower lobe opacity, new from prior, agree with radiology read Radiology Impression Discussion of test interpretation with radiology: I have reviewed the radiologist's reading. Radiologist Impression: EXAMINATION: XR CHEST CLINICAL INFORMATION: Shortness of breath, COPD. COMPARISON: Chest radiograph 11/16/2023. TECHNIQUE: Frontal view of the chest was obtained. FINDINGS: Normal appearance of the cardiomediastinal silhouette. Stable hyperexpansion and minimal interstitial prominence in keeping with history of COPD. Equivocal new focal hazy opacities projecting over the right lower lobe. No pleural effusion or pneumothorax. No acute osseous findings. XR/XR chest 1V IMPRESSION: Equivocal new focal hazy opacities projecting over the right lower lobe. This could be artifactual and related with overlying soft tissues versus early infectious/inflammatory infiltrate. Recommend clinical correlation and follow-up to ensure resolution. External Record Review External record reviewed: Inpatient record, Outpatient record, Prior outpatient labs and Prior outpatient radiology Prescription Management I considered prescription management with: Antibiotic and Other (Prednisone) Chronic Conditions Patient?s care impacted by: Other (COPD) Critical Care Time Critical Care Time Critical Care Time: Yes Total Critical Care Time: 31 Attestation: I have personally provided critical care time exclusive of time spent on separately billable procedures. Time includes review of lab data, radiology results, bedside reassessment of cardiopulmonary status after administration of bronchodilators and IV steroids, and monitoring for potential decompensation. Intervention performed as documented. Discharge Plan Discharge Clinical Impression: Acute exacerbation of chronic obstructive airways disease, Community acquired pneumonia Patient Disposition: Home, Self-Care Instructions: COPD (Chronic Obstructive Pulmonary Disease) (DC), Community Acquired Pneumonia (DC) Additional Instructions: Your x-ray showed a subtle opacity in the right lower lobe concerning for possible pneumonia. Take the prescribed antibiotics as directed. There are two. Complete the entire course and do not miss any doses. Take the prescribed prednisone taper as directed. Complete the entire course. Use your nebulizer treatments every 4 hours while you were sick. Continue to abstain from smoking. Follow-up with your doctor. Recommend following up with Pulmonary. Call for an appointment. If you develop new or worsening symptoms call 911 or come back to the ER for further evaluation. Prescriptions: New amoxicillin-pot clavulanate 875-125 mg tablet 1 tab PO BID Qty: 14 0RF prednisone 10 mg tablets,dose pack See Rx Instructions .ROUTE .COMPLEX Qty: 48 0RF Taper: Prednisone 40 mg daily for 3 Days and 0 Hour 30 mg daily for 3 Days and 0 Hour 20 mg daily for 3 Days and 0 Hour 10 mg daily for 3 Days and 0 Hour Rx Instructions: See Taper orally ;40 mg Daily x3 days, 30 mg daily x3 days, 20 mg daily x3 days, 10 mg daily x3 days azithromycin [Zithromax Z-Shiva] 250 mg tablet See Rx Instructions .ROUTE .COMPLEX Qty: 6 0RF Rx Instructions: take 500 mg today (day 1), then 250 mg for 4 days (days 2-5) No Action cyclobenzaprine 10 mg tablet 10 mg PO BEDTIME Rx Instructions: side effect is drowsiness. Do not take at work or while driving. nicotine 21 mg/24 hr Patch 24 Hour 21 mg transdermal DAILY Qty: 30 0RF albuterol sulfate 1.25 mg/3 mL solution for nebulization 1.25 mg inhalation Q4H PRN (Reason: Wheezing) cholecalciferol (vitamin D3) [Vitamin D3] 25 mcg (1,000 unit) capsule 25 mcg PO DAILY amitriptyline 10 mg Tablet 10 mg PO BEDTIME PRN (Reason: Insomnia) simvastatin 10 mg tablet 10 mg PO BEDTIME Rx Instructions: pt states she takes in am amlodipine 5 mg tablet 5 mg PO DAILY albuterol sulfate 90 mcg/actuation HFA aerosol inhaler 2 puff PO Q4H PRN (Reason: Shortness Of Breath Or Wheezing) [place] [facility] [place] Group[place] (COPD) Anne Caballero MD [Primary Care Provider] - Interventions: ED Discharge Assessment Last Done: 01/17/24 12:52 Discharge Date/Time: 01/17/24 12:53 Print Language: Chinese
[2024-01-17 10:56] LABS: Basophils Percent Auto 0.4 % (0-2); Eosinophils Absolute Auto 0.2 X10*3/uL (0.0-0.4); Eosinophils Percent Auto 2.6 % (0-4); Hemoglobin 15.3 g/dl (12.0-16.0); Imm Gran Abs Auto 0.02 X10*3/uL (0.00-0.03); Imm Gran Pct Auto 0.3 % (0.0-0.4); Lymphocytes Absolute Auto 1.6 X10*3/uL (1.2-4.9); Mean Corpuscular Hemoglobin 32.3 pg (27.0-33.0); Mean Corpuscular Volume 94.9 fL (80.0-98.0); Mean Platelet Volume 8.2 fL (9.4-12.3); Monocytes Absolute Auto 0.9 X10*3/uL (0.1-1.2); Neutrophils Absolute Auto 4.4 x10*3/uL (2.0-8.3); Neutrophils Percent Auto 61.7 % (45-73); Platelet Count 289 X10*3/uL (160-400); Red Blood Count 4.74 X10*6/uL (4.20-5.50); Red Cell Distribution Width 13.4 % (11.0-16.0); White Blood Count 7.2 X10*3/uL (4.8-10.8)
[2024-01-17] MEDS: Magnesium Sulfate/H2O 2 GM/50 ML PIGGYBACK IV (10:58)
[2024-01-17] MEDS: methylPREDNISolone Sod Succ 125 MG/2 ML VIAL 60 MG IVPUSH (10:58)
--- NOTE | 2024-01-17 11:06 | PC.NURSE ---
a&ox4. vss and up to date. nsr on the razor sharpener. pt presents to ED w/ intermittent sob/productive thick yellow sputum x 5 days. pt recently quit smoking cigarettes x many years. quit x 2 weeks ago. wob noted. pursed lip breathing present. pt repositioned upright to promote patent airway. 20gIV placed in the right forearm - patent/intact. labs obtained/sent to lab. medication administered per provider order. chest xray results back/waiting to speak w/ ED provider. plan of care ongoing. call root placed within reach.
[2024-01-17 11:08] LABS: Anion Gap 15 (12-20); Blood Urea Nitrogen 30 mg/dL (9-16); Calcium 10.8 mg/dL (8.4-10.2); Carbon Dioxide 29 mmol/L (22-29); Chloride 102 mmol/L (96-108); Creatinine Clr Calc Pharmacy 43.5; Estimated Glomerular Filt Rate 52; Glucose Random 75 mg/dL (60-115); Potassium 3.8 mmol/L (3.3-5.1); Sodium 142 mmol/L (135-145)
[2024-01-17 11:18] LABS: VBG Base Excess 3.2 mmol/L; VBG HCO3 25 mmol/L (22-26); VBG pCO2 30 mmHg; VBG pH 7.52 (7.32-7.43); VBG pO2 217 mmHg
[2024-01-17 11:20] VITALS: PULSE 77; RESP 12; O2SAT 98
[2024-01-17] MEDS: Albuterol Sulfate 2.5 MG, Albuterol/Iprat 2.5/0.5MG 3 ML 3 ML INHALE (11:20)
[2024-01-17 11:22] LABS: Venous Blood Gas Refer to POC result
--- NOTE | 2024-01-17 11:30 | PC.NURSE ---
pt receiving breathing treatment via RT.
[2024-01-17 11:37] LABS: Influenza A PCR NEGATIVE (Negative); Influenza B PCR NEGATIVE (Negative); Resp Syncy Virus RNA Qual PCR NEGATIVE (Negative); SARS COV2 PCR INHOUSE NEGATIVE (Negative)
[2024-01-17 12:52] VITALS: BP 144/81; PULSE 95; RESP 16; TEMP 36.8; O2SAT 95
== END 2024-01-17 12:53 | disposition home or self-care (01) ==
PROVIDERS: Physician Assistant; Emergency Provider Emergency Medicine; PCP Student in an Organized Health Care Education/Training Program
DX: J44.1 Chronic obstructive pulmonary disease with (acute) exacerbation (principal); J18.8 Other pneumonia, unspecified organism; R05.9 Cough, unspecified; I10 Essential (primary) hypertension; E78.5 Hyperlipidemia, unspecified; R06.02 Shortness of breath; Z79.02 Long term (current) use of antithrombotics/antiplatelets; Z79.899 Other long term (current) drug therapy; Z03.818 Encounter for observation for suspected exposure to other biological agents ruled out
CPT/HCPCS: 0241U; 36415; 71045; 80048; 82803; 85025; 94640; 96365; 96375; 99284; J2919; J3475

== ENCOUNTER 2024-01-29 13:39 | Outpatient (AMB) | payer OTHER, SELFPAY ==
--- NOTE | 2024-01-29 13:43 | A.OFFVIS_ITS ---
Vital Signs 01/29/24 13:44 Height 5 ft 6 in Weight 127 lb 13.89 oz BMI 20.6 BP 132/78 Blood Pressure Location Rt brachial Position Sitting Pulse 97 Pulse Source Pulse Oximeter Pulse Oximetry (%) 95 Oxygen Delivery Method Room Air Intake Visit Reasons: COPD Allergies No Known Allergies [No Known Allergies*] Allergy (Verified 01/29/24 13:47) HPI HPI COPD: Details: Juana is a pleasant 68 year old female current minimal smoker with 30+ pack year history, with underlying COPD, HTN and HLD. She was referred by ED after second COPD exacerbation in the last six months. She was admitted in September to [facility] and seen in the ED on 01/17/24. Recent CXR revealed subtle opacity in the right lower lobe. She was treated for pneumonia with nebs, steroids, magnesium, zpak, augmentin and prednisone taper. She has completed antibiotics a few days ago and prednisone today. She reports feeling back to baseline with occasional dyspnea on exertion, wheezing and productive cough with whitish yellow sputum. She reports being suboptimally controlled on Breo and using albuterol MDI 2-3 times per day. Prior she was prescribed Incruse for a short period of time while in rehab for hip pain, however never continued rx. She checks oxygen saturation daily, never below 95%. She denies prior asthma or need for intubation related to respiratory distress. She reports mother with asthma otherwise no pertinent family history. She denies occupational exposures. She denies seasonal allergies. [facility] Medical History (Updated 01/29/24 @ 14:21 by Alka Robles NP) COPD (chronic obstructive pulmonary disease) Surgical History H/O total hysterectomy Hx of colonoscopy (~05/2019) History of tubal ligation Family History Mother Breast CA Social History Household Members: None Household Members Other:: goes to significant other house 3x a week Housing: Apartment Housing Other:: 2 family house Do you presently have visiting nurse or other home services: Yes ([facility]) Alcohol intake: current Alcohol intake frequency: does not drink Patient Tobacco Use Status: Current someday Tobacco user Tobacco use type: Cigarette Cigarettes Per Day: 4 e-Cigarette/Vaping Use: Never Used Second Hand Smoke Exposure: No Substance Use Type: Marijuana Advance Directives Date on File: 11/16/23 service: No Current occupational status: retired Female Reproductive History Menstrual Age of Menarche: 10 Review of Systems Const Denies chills, Denies excessive sweating, Denies fever(s), Denies headache(s) and Denies night sweats Eyes Denies dry eyes, Denies irritation and Denies itchy eyes ENT Reports Normal hearing present, Denies headache(s), Denies nasal congestion, Denies nasal discharge, Denies post nasal drip and Denies sore throat Card Denies chest pain, Denies chest pain at rest, Denies chest pain with activity, Denies claudication, Denies leg edema, Denies orthopnea and Denies paroxysmal nocturnal dyspnea Resp Denies chest congestion, Denies excessive phlegm production, Denies pain on inspiration, Denies pain with cough and Denies stridor Musc Denies myalgias Neuro Reports Normal hearing present and Denies headache(s) Endo Denies excessive sweating Bao/Lymph Denies lymphadenopathy Aller/Immun Denies itchy eyes and Denies seasonal rhinorrhea Physical Exam Vital Signs: BMI result Body Mass Index 20.6 Const General: cooperative, healthy appearing, comfortable, no acute distress, well developed and alert Orientation/consciousness: patient oriented x3 Limitations: no limitations HEENT Head: Yes normal to inspection, Yes normocephalic and Yes atraumatic Ears: hearing grossly normal bilaterally and external ears normal Eyes General: appearance normal, both eyes and all related structures Eyelids: Yes eyelids normal Sclerae: sclerae normal EOM: EOMs intact bilaterally Neck Neck: Yes normal visual inspection and Yes no lymphadenopathy Lymphatic: no lymphadenopathy noted Chest Chest palpation & inspection: normal inspection of the chest Resp Effort & Inspection: normal respiratory effort, able to speak in complete sentences, no audible wheezes, no cough, no stridor, not tachypneic, no tripod positioning and no use of accessory muscles Auscultation: diminished lung sounds Cardio Jugular venous distension: no JVD Rate: regular rate Rhythm: regular rhythm Skin Other: warm, dry General skin exam: no rashes or lesions noted Neuro General: patient oriented x3 Cranial nerves: Yes Normal hearing present Cognition (Neuro): normal cognition Gait exam (Neuro): Normal gait present Extrem General: Yes normal to inspection, Yes capillary refill normal, Yes no clubbing, cyanosis or edema and Yes no pedal edema Psych Appearance: grossly normal and well kempt Speech and movement: Normal speech and movement present and Clear speech present Affect: normal affect Attitude: cooperative Thought process: Normal thought process present Thought content: Normal thought content present Insight: Good insight present (Psych) Judgement: Good judgement present (Psych) Assessment & Plan Assessment & Plan (1) COPD (chronic obstructive pulmonary disease): Code(s): J44.9 - Chronic obstructive pulmonary disease, unspecified Category: Medical (2) Nicotine dependence, cigarettes, uncomplicated: Code(s): F17.210 - Nicotine dependence, cigarettes, uncomplicated Category: Medical Plan Juana's symptoms are likely related to underlying COPD, unknown severity. Will send for PFT to evaluate. Patient reports suboptimal control with Breo, using albuterol frequently, will trial Trelegy. Patient with significant smoking history and continues to smoke, will send for Chest CT. All questions were answered and patient is in agreement of plan. Will follow up to review results and response to inhaler or sooner if needed. Orders: Orders PFT pulmonary function test Today J44.9 - Chronic obstructive pulmonary disease, unspecified CT chest wo IV con Today - Nicotine dependence, cigarettes, uncomplicated Medications: New ybpjyadqbxz-hpverhesq-qoysyati 200-62.5-25 mcg (Trelegy Ellipta) 1 inh inhalation DAILY 60 ea 3RF Discontinued amoxicillin-pot clavulanate 875-125 mg Discontinued Reason: Patient Completed Course 1 tab PO BID 14 tabs 0RF prednisone Discontinued Reason: Patient Completed Course See Taper See Taper orally ;40 mg Daily x3 days, 30 mg daily x3 days, 20 mg daily x3 days, 10 mg daily x3 days 48 ea 0RF azithromycin (Zithromax Z-Shiva) Discontinued Reason: Patient Completed Course take 500 mg today (day 1), then 250 mg for 4 days (days 2-5) 6 tabs 0RF Coding Level of Care Code New Pt Level 4 (84743) Diagnoses COPD (chronic obstructive pulmonary disease) J44.9 Nicotine dependence, cigarettes, uncomplicated
[2024-01-29 13:44] VITALS: BP 132/78; PULSE 97; O2SAT 95; BMI 20.6
== END 2024-01-29 14:20 | disposition home or self-care (01) ==
PROVIDERS: PCP Student in an Organized Health Care Education/Training Program; Referring Provider Physician Assistant; Visit Provider Nurse Practitioner Family
DX: J44.9 Chronic obstructive pulmonary disease, unspecified (principal); F17.210 Nicotine dependence, cigarettes, uncomplicated
CPT/HCPCS: 99204

== ENCOUNTER → 2024-01-29 13:39 | Outpatient (BNVA) | payer OTHER, SELFPAY | PROVIDERS: PCP Student in an Organized Health Care Education/Training Program; Referring Provider Physician Assistant; Visit Provider Nurse Practitioner Family | DX: J44.9 Chronic obstructive pulmonary disease, unspecified (principal); F17.210 Nicotine dependence, cigarettes, uncomplicated | CPT/HCPCS: 99202 ==

== ENCOUNTER 2024-03-01 13:58 | Outpatient (REF) | payer OTHER, SELFPAY ==
--- NOTE | ~2024-03-01 | CT_ITS ---
EXAMINATION: CT CHEST WITHOUT CONTRAST CLINICAL INFORMATION: Current smoker with greater than 30 pack-year history of smoking. COMPARISON: None available. TECHNIQUE: Multidetector volumetric CT imaging of the chest was done. Axial MIP volume rendering provided. Sagittal and coronal reformatted images were obtained. High-resolution images were performed. This CT examination was performed using dose optimization techniques as appropriate, variously including the following: *Automated exposure control *Adjustment of mA and/or kV according to patient size (this includes techniques or standardized protocols for targeted exams where dose is matched to indication/reason for exam; i.e. extremities or head) *Use of iterative reconstruction technique DLP: 103 mGy-cm FINDINGS: LUNGS: Central airways are patent. There is a thin web versus secretions seen about the inferior trachea. There are some regions of bronchial wall thickening seen most prominent within the lower lobes bilaterally, right middle lobe, and lingula. There are bilateral multiple bronchial filling defects consistent with mucus plugging. No bronchiectasis identified. There are mild changes of centrilobular emphysema. No confluent parenchymal disease is identified. Question calcified granuloma or broncholith within the anterior right upper lobe. There are sub-4 mm densities present bilaterally. No significant air trapping is appreciated on high-resolution imaging. There is a 4 mm noncalcified density seen within the left lower lobe on CT image [address] series #8. MEDIASTINUM: Visualized thyroid gland unremarkable. Heart normal size. No pericardial effusion. No mediastinal or hilar lymphadenopathy. No thoracic aortic aneurysm appreciated. CORONARY ARTERY CALCIFICATION: Mild coronary artery calcification. PLEURA: There is no pleural effusion. No pleural mass or thickening. AXILLA: No lymphadenopathy. UPPER ABDOMEN: There are multiple hepatic cysts present the largest measuring approximately 4 cm in diameter within segment VII of the liver. OSSEOUS STRUCTURES: No suspicious destructive bony lesions identified. Multilevel degenerative disc disease is seen T12-L4. CT/CT chest wo IV con IMPRESSION: Mild changes of centrilobular emphysema without evidence of any significant air trapping. Findings consistent with bilateral mucus plugging with filling defects within multiple bronchioles. According to the UPDATED 2017 Fleischner Society recommendations, the advised follow-up imaging for solid nodules < 6 mm is: LOW RISK PATIENT: No routine follow-up. HIGH RISK PATIENT: Optional CT at 12 months.
== END 2024-03-01 13:59 | disposition home or self-care (01) ==
LOC: HO.CT 13:58
PROVIDERS: PCP Student in an Organized Health Care Education/Training Program; Visit Provider Nurse Practitioner Family
DX: J44.9 Chronic obstructive pulmonary disease, unspecified (principal); F17.210 Nicotine dependence, cigarettes, uncomplicated
CPT/HCPCS: 71250

== ENCOUNTER 2024-03-02 | Outpatient (REF) | payer OTHER, SELFPAY ==
--- NOTE | 2024-03-02 09:00 | PFT_ITS ---
Indication: COPD Spirometry [FEV1 to FVC 40%; FEV1 1.19 L; FVC 2.86 L. There was a significant response to bronchodilators noted. Maximum voluntary ventilation 30% predicted] Lung Volumes [The patient was not able to perform the lung volumes, therefore, no data available Diffusion Capacity [DLCO 65% predicted] Comparisons [None] Interpretation [There is obstructive ventilatory defect consistent with severe COPD. There is a significant response to bronchodilators noted. Severe decrease in the maximum voluntary ventilation secondary to deconditioning also likely worsening the night inspiratory capacity. There is a mild diffusion impairment. Again lung volumes cannot be measured. Clinical correlation warranted.] MTDD
[2024-03-02 09:32] VITALS: PULSE 107; RESP 16; O2SAT 94
== END 2024-03-04 07:58 | disposition home or self-care (01) ==
LOC: HO.RESP
PROVIDERS: PCP Student in an Organized Health Care Education/Training Program; Visit Provider Nurse Practitioner Family
DX: J44.9 Chronic obstructive pulmonary disease, unspecified (principal)
CPT/HCPCS: 94010; 94640; 94727

== ENCOUNTER 2024-04-01 09:56 | Outpatient (AMB) | payer OTHER, SELFPAY ==
--- NOTE | 2024-04-01 10:01 | A.OFFVIS_ITS ---
Vital Signs 04/01/24 10:02 Height 5 ft 6 in Weight 124 lb 8.979 oz BMI 20.1 BP 100/66 Blood Pressure Location Rt brachial Position Sitting Pulse 113 H Pulse Source Pulse Oximeter Pulse Oximetry (%) 93 Oxygen Delivery Method Room Air Intake Visit Reasons: COPD Allergies No Known Allergies [No Known Allergies*] Allergy (Verified 04/01/24 10:04) HPI HPI COPD: Details: Juana is a pleasant 68 year old female current minimal smoker with 30+ pack year history, with underlying COPD, HTN and HLD. At the last visit, she was switched from Breo to Trelegy and continues to use albuterol daily. Overall she reports symptomatic improvement, continues with productive cough with white sputum and dyspnea on moderate exertion. Today she presents to review PFT and chest CT. She denies any visits to urgent care or hospitalizations since the last visit. [facility] Medical History (Updated 04/02/24 @ 16:28 by Alka Robles NP) COPD (chronic obstructive pulmonary disease) Surgical History H/O total hysterectomy Hx of colonoscopy (~05/2019) History of tubal ligation Family History Mother Breast CA Social History Household Members: None Household Members Other:: goes to significant other house 3x a week Housing: Apartment Housing Other:: 2 family house Do you presently have visiting nurse or other home services: Yes ([facility]) Alcohol intake: current Alcohol intake frequency: does not drink Patient Tobacco Use Status: Current someday Tobacco user Tobacco use type: Cigarette Cigarettes Per Day: 4 e-Cigarette/Vaping Use: Never Used Second Hand Smoke Exposure: No Substance Use Type: Marijuana Advance Directives Date on File: 11/16/23 service: No Current occupational status: retired Female Reproductive History Menstrual Age of Menarche: 10 Review of Systems Const Denies chills, Denies excessive sweating, Denies fever(s), Denies headache(s) and Denies night sweats Eyes Denies dry eyes, Denies irritation and Denies itchy eyes ENT Reports Normal hearing present, Denies headache(s), Denies nasal congestion, Denies nasal discharge, Denies post nasal drip and Denies sore throat Card Denies chest pain, Denies chest pain at rest, Denies chest pain with activity, Denies claudication, Denies leg edema, Denies orthopnea and Denies paroxysmal nocturnal dyspnea Resp Denies chest congestion, Denies excessive phlegm production, Denies pain on inspiration, Denies pain with cough and Denies stridor Musc Denies myalgias Neuro Reports Normal hearing present and Denies headache(s) Endo Denies excessive sweating Bao/Lymph Denies lymphadenopathy Aller/Immun Denies itchy eyes and Denies seasonal rhinorrhea Physical Exam Vital Signs: Last Vital Signs Pulse 113 H 04/01/24 10:02 BP 100/66 04/01/24 10:02 Pulse Ox 93 04/01/24 10:02 Oxygen Delivery Method Room Air 04/01/24 10:02 BMI result Body Mass Index 20.1 Const General: cooperative, healthy appearing, comfortable, no acute distress, well developed and alert Orientation/consciousness: patient oriented x3 Limitations: no limitations HEENT Head: Yes normal to inspection, Yes normocephalic and Yes atraumatic Ears: hearing grossly normal bilaterally and external ears normal Eyes General: appearance normal, both eyes and all related structures Eyelids: Yes eyelids normal Sclerae: sclerae normal EOM: EOMs intact bilaterally Neck Neck: Yes normal visual inspection and Yes no lymphadenopathy Lymphatic: no lymphadenopathy noted Chest Chest palpation & inspection: normal inspection of the chest Resp Effort & Inspection: normal respiratory effort, able to speak in complete sentences, no audible wheezes, no cough, no stridor, not tachypneic, no tripod positioning and no use of accessory muscles Auscultation: diminished lung sounds Cardio Jugular venous distension: no JVD Rate: regular rate Rhythm: regular rhythm Skin Other: warm, dry General skin exam: no rashes or lesions noted Neuro General: patient oriented x3 Cranial nerves: Yes Normal hearing present Cognition (Neuro): normal cognition Gait exam (Neuro): Normal gait present Extrem General: Yes normal to inspection, Yes capillary refill normal, Yes no clubbing, cyanosis or edema and Yes no pedal edema Psych Appearance: grossly normal and well kempt Speech and movement: Normal speech and movement present and Clear speech present Affect: normal affect Attitude: cooperative Thought process: Normal thought process present Thought content: Normal thought content present Insight: Good insight present (Psych) Judgement: Good judgement present (Psych) Results Reviewed Results Reviewed: [address] [address] [address] Scan Report Signed Patient: Juana Lopez MR#: [id number] : 1955 Acct:[id number] Age/Sex: 68 / F ADM Date: 03/01/24 Loc: HO.CT Attending Dr: Alka Robles NP Ordering Physician: Alka Robles NP Date of Service: 03/01/24 Procedure(s): CT chest wo IV con Accession Number(s): [id number] cc: Anne Caballero MD; Alka Robles NP~ EXAMINATION: CT CHEST WITHOUT CONTRAST CLINICAL INFORMATION: Current smoker with greater than 30 pack-year history of smoking. COMPARISON: None available. TECHNIQUE: Multidetector volumetric CT imaging of the chest was done. Axial MIP volume rendering provided. Sagittal and coronal reformatted images were obtained. High-resolution images were performed. This CT examination was performed using dose optimization techniques as appropriate, variously including the following: *Automated exposure control *Adjustment of mA and/or kV according to patient size (this includes techniques or standardized protocols for targeted exams where dose is matched to indication/reason for exam; i.e. extremities or head) *Use of iterative reconstruction technique DLP: 103 mGy-cm FINDINGS: LUNGS: Central airways are patent. There is a thin web versus secretions seen about the inferior trachea. There are some regions of bronchial wall thickening seen most prominent within the lower lobes bilaterally, right middle lobe, and lingula. There are bilateral multiple bronchial filling defects consistent with mucus plugging. No bronchiectasis identified. There are mild changes of centrilobular emphysema. No confluent parenchymal disease is identified. Question calcified granuloma or broncholith within the anterior right upper lobe. There are sub-4 mm densities present bilaterally. No significant air trapping is appreciated on high-resolution imaging. There is a 4 mm noncalcified density seen within the left lower lobe on CT image [address] series #8. MEDIASTINUM: Visualized thyroid gland unremarkable. Heart normal size. No pericardial effusion. No mediastinal or hilar lymphadenopathy. No thoracic aortic aneurysm appreciated. CORONARY ARTERY CALCIFICATION: Mild coronary artery calcification. PLEURA: There is no pleural effusion. No pleural mass or thickening. AXILLA: No lymphadenopathy. UPPER ABDOMEN: There are multiple hepatic cysts present the largest measuring approximately 4 cm in diameter within segment VII of the liver. OSSEOUS STRUCTURES: No suspicious destructive bony lesions identified. Multilevel degenerative disc disease is seen T12-L4. CT/CT chest wo IV con IMPRESSION: Mild changes of centrilobular emphysema without evidence of any significant air trapping. Findings consistent with bilateral mucus plugging with filling defects within multiple bronchioles. According to the UPDATED 2017 Fleischner Society recommendations, the advised follow-up imaging for solid nodules < 6 mm is: LOW RISK PATIENT: No routine follow-up. HIGH RISK PATIENT: Optional CT at 12 months. Dictated By: Kevan Gong MD Signed By: <Electronically signed by Kevan Gong MD in OV> 03/28/24 1534 DD/ 1419 TD/TT: Crop Roller: ALISHA Assessment & Plan Assessment & Plan (1) COPD (chronic obstructive pulmonary disease): Code(s): J44.9 - Chronic obstructive pulmonary disease, unspecified Category: Medical (2) Nicotine dependence, cigarettes, uncomplicated: Code(s): F17.210 - Nicotine dependence, cigarettes, uncomplicated Category: Medical Plan Juana reports improvements with Trelegy however continues to use albuterol MDI daily. Will add duoneb QD to regimen. Reviewed PFT which revealed an obstructive ventilatory defect consistent with severe COPD. There is a significant response to bronchodilators noted. Severe decrease in the maximum voluntary ventilation secondary to deconditioning also likely worsening the night inspiratory capacity. DLCO 65%, suggestive of emphysema. Lung volumes cannot be measured. Reviewed chest CT which revealed multiple pulmonary nodules <4 mm and emphysema. Will send for repeat chest CT in one year to assess for stability. Discussed smoking cessation and patient not ready to quit at this time. All questions were answered and patient is in agreement of plan. Will follow up in 3 months or sooner if needed. Orders: Orders CT chest wo IV con 11 Months F17.210 - Nicotine dependence, cigarettes, uncomplicated, R91.8 - Other nonspecific abnormal finding of lung field Medications: New ipratropium-albuterol 0.5 mg-3 mg(2.5 mg base)/3 mL 3 mL inhalation Q6H PRN 180 mL 0RF wheezing Coding Level of Care Code Est Pt Level 4 (18079) Diagnoses COPD (chronic obstructive pulmonary disease) J44.9 Nicotine dependence, cigarettes, uncomplicated F17.210
[2024-04-01 10:02] VITALS: BP 100/66; PULSE 113; O2SAT 93; BMI 20.1
== END 2024-04-01 10:30 | disposition home or self-care (01) ==
PROVIDERS: PCP Student in an Organized Health Care Education/Training Program; Visit Provider Nurse Practitioner Family
DX: J44.9 Chronic obstructive pulmonary disease, unspecified (principal); F17.210 Nicotine dependence, cigarettes, uncomplicated
CPT/HCPCS: 99214

== ENCOUNTER → 2024-04-01 09:56 | Outpatient (BNVA) | payer OTHER, SELFPAY | PROVIDERS: PCP Student in an Organized Health Care Education/Training Program; Visit Provider Nurse Practitioner Family | DX: J44.9 Chronic obstructive pulmonary disease, unspecified (principal); R91.8 Other nonspecific abnormal finding of lung field; I10 Essential (primary) hypertension; E78.5 Hyperlipidemia, unspecified; F17.210 Nicotine dependence, cigarettes, uncomplicated | CPT/HCPCS: 99212 ==

== ENCOUNTER 2024-06-27 15:36 | Outpatient (REF) | payer OTHER, SELFPAY ==
--- NOTE | ~2024-06-27 | MM_ITS ---
EXAMINATION: MM SCREENING DIGITAL BREAST TOMOSYNTHESIS, BILATERAL CLINICAL INFORMATION: Screening. Asymptomatic. COMPARISON: Mammography: Comparison is made with available priors TECHNIQUE: Digital breast mammography with tomosynthesis is performed in both the craniocaudal and mediolateral oblique views along with computer-aided detection (CAD). FINDINGS: The breasts are heterogeneously dense, which may obscure small masses (ACR BI-RADS breast composition Category c). There are no significant masses, abnormal calcifications, or other abnormalities. MM/MM tomosynthesis screening BI IMPRESSION: No mammographic evidence of malignancy. ASSESSMENT: BI-RADS BI-RADS 1 - Negative RECOMMENDATION: Routine annual mammography screening. 1 year F/U This examination should not preclude the clinical evaluation of a suspicious palpable abnormality. This patient's information was entered into a reminder system with a target due date for their next mammogram. Electronically signed by: Celestina Tan DO 07/05/2024 12:47 PM THU
== END 2024-06-27 15:37 | disposition home or self-care (01) ==
LOC: HO.MAMMO 15:36
PROVIDERS: PCP Student in an Organized Health Care Education/Training Program; Visit Provider Student in an Organized Health Care Education/Training Program
DX: Z12.31 Encounter for screening mammogram for malignant neoplasm of breast (principal)
CPT/HCPCS: 77063; 77067

== ENCOUNTER → 2024-06-27 16:15 | Outpatient (BNV) | payer OTHER, SELFPAY | PROVIDERS: PCP Student in an Organized Health Care Education/Training Program; Visit Provider Internal Medicine | DX: Z12.31 Encounter for screening mammogram for malignant neoplasm of breast (principal) | CPT/HCPCS: 77063; 77067 ==

== ENCOUNTER 2024-07-17 14:07 | Inpatient (IN) | payer OTHER, SELFPAY ==
[2024-07-17] VITALS (12 sets, daily range): BP systolic 98–139; BP diastolic 65–87; PULSE 80–106; RESP 14–22; TEMP 36.6–38; O2SAT 88–95
--- NOTE | ~2024-07-17 | XR_ITS ---
EXAMINATION: XR CHEST CLINICAL INFORMATION: fever, cough COMPARISON: None available. TECHNIQUE: Portable AP view of the chest was obtained. FINDINGS: The study is limited by portable technique. No gross consolidation, effusion, or pneumothorax is seen. If clinical suspicion persists, repeat standing upright PA and lateral views of the chest in full inspiration may be of use for further evaluation. Bilateral nipple shadows. The heart appears normal in size. The mediastinum, diaphragm, bones, and soft tissues appear unremarkable. XR/XR chest 1V IMPRESSION: Findings as above. Electronically signed by: Edi Lawrence MD 07/17/2024 04:49 PM [facility] [place]
--- NOTE | ~2024-07-17 | CT_ITS ---
EXAMINATION: CT CHEST WITHOUT CONTRAST CLINICAL INFORMATION: Shortness of breath, cough COMPARISON: 03/01/2024 TECHNIQUE: Multidetector volumetric CT imaging of the chest was done. Axial MIP volume rendering provided. Sagittal and coronal reformatted images were obtained. This CT examination was performed using dose optimization techniques as appropriate, variously including the following: *Automated exposure control *Adjustment of mA and/or kV according to patient size (this includes techniques or standardized protocols for targeted exams where dose is matched to indication/reason for exam; i.e. extremities or head) *Use of iterative reconstruction technique DLP: 186 mGy-cm FINDINGS: LUNGS: Redemonstration of bronchial wall thickening, with multiple waxing and waning mucoid impacted bronchi and mild bronchiectasis. PLEURA: No pleural effusion. MEDIASTINUM: No cardiomegaly. Aorta and pulmonary artery are normal in caliber. No mediastinal adenopathy. Lack of IV contrast limits evaluation for hilar adenopathy. CORONARY ARTERY CALCIFICATION: No coronary artery calcification appreciated. CHEST WALL/AXILLA: No axillary or internal mammary lymphadenopathy. UPPER ABDOMEN: Benign-appearing hepatic cysts are again noted. Nonobstructing left renal stone. OSSEOUS STRUCTURES: Degenerative changes of the spine. CT/CT chest wo IV con IMPRESSION: Redemonstration of bronchial wall thickening, with multiple waxing and waning mucoid impacted bronchi and mild bronchiectasis. Differential considerations include atypical mycobacterium infection. Electronically signed by: Sara Villafana MD 07/17/2024 07:46 PM [facility]
--- NOTE | 2024-07-17 14:37 | ED.GENADULT ---
HPI - General Adult General Chief complaint: Upper Respiratory Symptoms Stated complaint: SOB SINCE T-1,PROD COUGH,87% RA PER EMS Time Seen by Provider: 07/17/24 14:37 History of Present Illness ED Provider: Tara NORWOOD narrative: The patient is a 68-year-old woman with a history of COPD who has felt increasing shortness of breath and cough over the last 2 days. She says her symptoms began yesterday. She is coughing a lot more than usual. She is bringing up sputum. She called an ambulance because she felt so short of breath and was brought to the hospital. She did not think that she had a fever at home Related Data Home Medications ?Medication ?Instructions ?Recorded ?Confirmed simvastatin 10 mg tablet 10 mg PO BEDTIME 01/28/21 11/17/23 albuterol sulfate 90 mcg/actuation 2 puff PO Q4H PRN Shortness Of 02/03/22 11/17/23 aerosol inhaler Breath Or Wheezing amlodipine 5 mg tablet 5 mg PO DAILY 02/03/22 11/17/23 albuterol sulfate 1.25 mg/3 mL 1.25 mg inhalation Q4H PRN Wheezing 07/21/23 11/17/23 solution for nebulization amitriptyline 10 mg tablet 10 mg PO BEDTIME PRN Insomnia 07/21/23 11/17/23 cholecalciferol (vitamin D3) 25 25 mcg PO DAILY 07/21/23 11/17/23 mcg (1,000 unit) capsule (Vitamin D3) cyclobenzaprine 10 mg tablet 10 mg PO BEDTIME 10/03/23 11/17/23 Previous Rx's ?Medication ?Instructions ?Recorded nicotine 21 mg/24 hr daily 21 mg transdermal DAILY #30 ea 10/05/23 transdermal patch fluticasone fur. 200 mcg-umeclid 1 inh inhalation DAILY #60 ea 01/29/24 62.5 mcg-vilant 25 mcg inhalat.powder (Trelegy Ellipta) ipratropium 0.5 mg-albuterol 3 mg 3 ml inhalation Q6H PRN wheezing 04/02/24 (2.5 mg base)/3 mL nebulization #180 mL soln Allergies Allergy/AdvReac Type Severity Reaction Status Date / Time No Known Allergies Allergy Verified 07/17/24 14:41 [No Known Allergies*] Review of Systems Review of Systems: Yes all other systems are reviewed and are negative REPLACED BY [facility] Past Medical History Medical History (Updated 07/17/24 @ 17:25 by Bhavin Pacheco MD) COPD (chronic obstructive pulmonary disease) Surgical History H/O total hysterectomy Hx of colonoscopy (~05/2019) History of tubal ligation Family History Family History Mother Breast CA Social History Social History Household Members: None Household Members Other:: goes to significant other house 3x a week Housing: Apartment Housing Other:: 2 family house Do you presently have visiting nurse or other home services: Yes ([facility]) Alcohol intake: current Alcohol intake frequency: does not drink Patient Tobacco Use Status: Current someday Tobacco user Tobacco use type: Cigarette Cigarettes Per Day: 4 Smoked in Last 30 Days: Yes e-Cigarette/Vaping Use: Never Used Second Hand Smoke Exposure: No Use of substances other than those prescribed or required for medical reasons: Yes Substance Use Type: Marijuana Advance Directives: No Advance Directives Information Provided: Yes Advance Directives Date on File: 11/16/23 service: No Current occupational status: retired Physical Exam ED Vital Signs: Vital Signs - 24 hr 07/17/24 14:39 07/17/24 15:07 07/17/24 15:29 Temperature 100.4 F Pulse Rate 106 H 96 Respiratory Rate 22 H 18 Blood Pressure 139/87 Pulse Oximetry 95 90 L Oxygen Delivery Method Nasal Cannula Room Air Oxygen Flow Rate 07/17/24 15:41 07/17/24 17:14 Temperature 100.0 F 98.9 F Pulse Rate 100 100 Respiratory Rate 16 14 Blood Pressure 132/85 113/67 Pulse Oximetry 91 L 95 Oxygen Delivery Method Room Air Nasal Cannula Oxygen Flow Rate 1 BMI result Body Mass Index 20.0 Const Other: The patient is awake, alert, pleasant, cooperative. She has some mild increased work of breathing apparent. She does not seem in acute distress however. HENMT Other: Face is symmetrical. Mucous membranes moist. Eyes General: appearance normal, both eyes and all related structures Neck Neck: Yes no JVD Resp Other: Mild increased work of breathing. There is inspiratory and expiratory wheezing bilaterally. Cardio Rate: regular rate Rhythm: regular rhythm Heart sounds: S1 normal heart sound present and S2 normal heart sound present GI Other: Abdomen is soft and nontender Skin Other: Skin is pale and dry Neuro Other: The patient is awake and alert with a normal mental status. Cranial nerves are grossly intact. She moves her extremities normally and appropriately. Extrem Other: No calf swelling or tenderness Medications Administered Generic Name Dose Route Start Last Admin Trade Name Freq PRN Reason Stop Dose Admin Azithromycin 500 mg/ Sodium 250 mls @ 125 mls/hr 07/17/24 16:28 07/17/24 16:38 Chloride IV 07/17/24 18:27 125 mls/hr ONCE ONE Administration Discontinued Medications Generic Name Dose Route Start Last Admin Trade Name Freq PRN Reason Stop Dose Admin Acetaminophen 975 mg 07/17/24 15:30 07/17/24 15:48 Acetaminophen 325 Mg Tablet PO 07/17/24 15:31 975 mg ONCE ONE Administration Ceftriaxone Sodium 1 gm 07/17/24 16:28 07/17/24 16:37 Ceftriaxone Sodium 1 Gm Vial IVPUSH 07/17/24 16:29 1 gm ONCE ONE Administration Albuterol Sulfate 5 mg/ 0 mg 07/17/24 15:04 07/17/24 15:06 Albuterol/Ipratropium 3 ml INHALE 07/17/24 15:05 1 each ONCE ONE Administration Methylprednisolone Sodium Succinate 80 mg 07/17/24 14:45 07/17/24 15:24 Methylprednisolone Sod Succ 125 Mg/2 Ml Vial IVPUSH 07/17/24 14:46 80 mg ONCE ONE Administration Medical Decision Making Medical Decision Making [facility] Narrative: The patient has a history of COPD. She presents with complaints of shortness of breath and cough for 2 days. Her oral temperature was 100.4 degrees. Her rectal temperature was 101.7. Blood cultures were obtained. Chest x-ray has been read as showing no definite pneumonia. White count is mildly elevated. She was treated with steroids, antibiotics, and bronchodilators. She has an oxygen requirement today that she does not normally have. Given her oxygen requirement and her fever she will be admitted for further care. Lab Data 07/17/24 15:21 07/17/24 15:21 Labs: Lab Results 07/17/24 07/17/24 07/17/24 Range/Units 15:21 15:21 15:21 WBC 12.6 H (4.8-10.8) X10*3/uL RBC 4.85 (4.20-5.50) X10*6/uL Hgb 15.0 (12.0-16.0) g/dl Hct 44.4 (37.0-47.0) % MCV 91.5 (80.0-98.0) fL MCH 30.9 (27.0-33.0) pg MCHC 33.8 (31.0-35.0) g/dl RDW 12.6 (11.0-16.0) % Plt Count 207 D (160-400) X10*3/uL MPV 8.7 L (9.4-12.3) fL Immature Gran % (Auto) 0.5 H (0.0-0.4) % Neut % (Auto) 82.3 H (45-73) % Lymph % (Auto) 5.4 L (20-40) % [place] % (Auto) 9.5 (2-11) % Eos % (Auto) 1.8 (0-4) % Baso % (Auto) 0.5 (0-2) % Lymph # (Auto) 0.7 L (1.2-4.9) X10*3/uL [place] # (Auto) 1.2 (0.1-1.2) X10*3/uL Eos # (Auto) 0.2 (0.0-0.4) X10*3/uL Baso # (Auto) 0.1 (0.0-0.2) X10*3/uL Abs Immat Gran (auto) 0.06 H (0.00-0.03) X10*3/uL Absolute Neuts (auto) 10.4 H (2.0-8.3) x10*3/uL Absolute Nucleated RBC 0.000 (0.0-0.012) X10*3/uL Nucleated RBC % (auto) 0.0 (0.0-0.2) /100WBC PT (10.9-12.4) SEC INR (0.9-1.1) VBG pH (7.32-7.43) VBG pCO2 mmHg VBG pO2 mmHg VBG HCO3 (22-26) mmol/L VBG O2 Saturation % VBG Base Excess mmol/L Sodium Cancelled 137 Potassium Cancelled 3.7 Chloride Cancelled Carbon Dioxide Anion Gap BUN Creatinine Estim Creat Clear Calc Estimated GFR Random Glucose Lactic Acid (0.5-2.0) mmol/L Calcium Magnesium Total Bilirubin Direct Bilirubin AST ALT Alkaline Phosphatase Troponin I High Sens (<3.5-17.0) ng/L C-Reactive Protein B-Natriuretic Peptide (<100) pg/mL Total Protein Albumin Ethyl Alcohol mg/dL Influenza Type A (PCR) (Negative) Influenza Type B (PCR) (Negative) RSV RNA Qual (PCR) (Negative) SARS-CoV-2 RNA (RT-PCR) (Negative) 07/17/24 07/17/24 07/17/24 Range/Units 15:21 15:21 15:21 WBC (4.8-10.8) X10*3/uL RBC (4.20-5.50) X10*6/uL Hgb (12.0-16.0) g/dl Hct (37.0-47.0) % MCV (80.0-98.0) fL MCH (27.0-33.0) pg MCHC (31.0-35.0) g/dl RDW (11.0-16.0) % Plt Count (160-400) X10*3/uL MPV (9.4-12.3) fL Immature Gran % (Auto) (0.0-0.4) % Neut % (Auto) (45-73) % Lymph % (Auto) (20-40) % [place] % (Auto) (2-11) % Eos % (Auto) (0-4) % Baso % (Auto) (0-2) % Lymph # (Auto) (1.2-4.9) X10*3/uL [place] # (Auto) (0.1-1.2) X10*3/uL Eos # (Auto) (0.0-0.4) X10*3/uL Baso # (Auto) (0.0-0.2) X10*3/uL Abs Immat Gran (auto) (0.00-0.03) X10*3/uL Absolute Neuts (auto) (2.0-8.3) x10*3/uL Absolute Nucleated RBC (0.0-0.012) X10*3/uL Nucleated RBC % (auto) (0.0-0.2) /100WBC PT (10.9-12.4) SEC INR (0.9-1.1) VBG pH (7.32-7.43) VBG pCO2 mmHg VBG pO2 mmHg VBG HCO3 (22-26) mmol/L VBG O2 Saturation % VBG Base Excess mmol/L Sodium Potassium Chloride 102 Carbon Dioxide Cancelled 25 Anion Gap Cancelled 14 BUN Cancelled Creatinine Estim Creat Clear Calc Estimated GFR Random Glucose Lactic Acid (0.5-2.0) mmol/L Calcium Magnesium Total Bilirubin Direct Bilirubin AST ALT Alkaline Phosphatase Troponin I High Sens (<3.5-17.0) ng/L C-Reactive Protein B-Natriuretic Peptide (<100) pg/mL Total Protein Albumin Ethyl Alcohol mg/dL Influenza Type A (PCR) (Negative) Influenza Type B (PCR) (Negative) RSV RNA Qual (PCR) (Negative) SARS-CoV-2 RNA (RT-PCR) (Negative) 07/17/24 07/17/24 07/17/24 Range/Units 15:21 15:21 15:21 WBC (4.8-10.8) X10*3/uL RBC (4.20-5.50) X10*6/uL Hgb (12.0-16.0) g/dl Hct (37.0-47.0) % MCV (80.0-98.0) fL MCH (27.0-33.0) pg MCHC (31.0-35.0) g/dl RDW (11.0-16.0) % Plt Count (160-400) X10*3/uL MPV (9.4-12.3) fL Immature Gran % (Auto) (0.0-0.4) % Neut % (Auto) (45-73) % Lymph % (Auto) (20-40) % [place] % (Auto) (2-11) % Eos % (Auto) (0-4) % Baso % (Auto) (0-2) % Lymph # (Auto) (1.2-4.9) X10*3/uL [place] # (Auto) (0.1-1.2) X10*3/uL Eos # (Auto) (0.0-0.4) X10*3/uL Baso # (Auto) (0.0-0.2) X10*3/uL Abs Immat Gran (auto) (0.00-0.03) X10*3/uL Absolute Neuts (auto) (2.0-8.3) x10*3/uL Absolute Nucleated RBC (0.0-0.012) X10*3/uL Nucleated RBC % (auto) (0.0-0.2) /100WBC PT (10.9-12.4) SEC INR (0.9-1.1) VBG pH (7.32-7.43) VBG pCO2 mmHg VBG pO2 mmHg VBG HCO3 (22-26) mmol/L VBG O2 Saturation % VBG Base Excess mmol/L Sodium Potassium Chloride Carbon Dioxide Anion Gap BUN 15 Creatinine Cancelled 0.96 Estim Creat Clear Calc Cancelled 48.4 Estimated GFR Cancelled Random Glucose Lactic Acid (0.5-2.0) mmol/L Calcium Magnesium Total Bilirubin Direct Bilirubin AST ALT Alkaline Phosphatase Troponin I High Sens (<3.5-17.0) ng/L C-Reactive Protein B-Natriuretic Peptide (<100) pg/mL Total Protein Albumin Ethyl Alcohol mg/dL Influenza Type A (PCR) (Negative) Influenza Type B (PCR) (Negative) RSV RNA Qual (PCR) (Negative) SARS-CoV-2 RNA (RT-PCR) (Negative) 07/17/24 07/17/24 07/17/24 Range/Units 15:21 15:21 15:21 WBC (4.8-10.8) X10*3/uL RBC (4.20-5.50) X10*6/uL Hgb (12.0-16.0) g/dl Hct (37.0-47.0) % MCV (80.0-98.0) fL MCH (27.0-33.0) pg MCHC (31.0-35.0) g/dl RDW (11.0-16.0) % Plt Count (160-400) X10*3/uL MPV (9.4-12.3) fL Immature Gran % (Auto) (0.0-0.4) % Neut % (Auto) (45-73) % Lymph % (Auto) (20-40) % [place] % (Auto) (2-11) % Eos % (Auto) (0-4) % Baso % (Auto) (0-2) % Lymph # (Auto) (1.2-4.9) X10*3/uL [place] # (Auto) (0.1-1.2) X10*3/uL Eos # (Auto) (0.0-0.4) X10*3/uL Baso # (Auto) (0.0-0.2) X10*3/uL Abs Immat Gran (auto) (0.00-0.03) X10*3/uL Absolute Neuts (auto) (2.0-8.3) x10*3/uL Absolute Nucleated RBC (0.0-0.012) X10*3/uL Nucleated RBC % (auto) (0.0-0.2) /100WBC PT (10.9-12.4) SEC INR (0.9-1.1) VBG pH (7.32-7.43) VBG pCO2 mmHg VBG pO2 mmHg VBG HCO3 (22-26) mmol/L VBG O2 Saturation % VBG Base Excess mmol/L Sodium Potassium Chloride Carbon Dioxide Anion Gap BUN Creatinine Estim Creat Clear Calc Estimated GFR 57 Random Glucose Cancelled 106 Lactic Acid (0.5-2.0) mmol/L Calcium Cancelled 10.1 D Magnesium Cancelled Total Bilirubin Direct Bilirubin AST ALT Alkaline Phosphatase Troponin I High Sens (<3.5-17.0) ng/L C-Reactive Protein B-Natriuretic Peptide (<100) pg/mL Total Protein Albumin Ethyl Alcohol mg/dL Influenza Type A (PCR) (Negative) Influenza Type B (PCR) (Negative) RSV RNA Qual (PCR) (Negative) SARS-CoV-2 RNA (RT-PCR) (Negative) 07/17/24 07/17/24 07/17/24 Range/Units 15:21 15:21 15:21 WBC (4.8-10.8) X10*3/uL RBC (4.20-5.50) X10*6/uL Hgb (12.0-16.0) g/dl Hct (37.0-47.0) % MCV (80.0-98.0) fL MCH (27.0-33.0) pg MCHC (31.0-35.0) g/dl RDW (11.0-16.0) % Plt Count (160-400) X10*3/uL MPV (9.4-12.3) fL Immature Gran % (Auto) (0.0-0.4) % Neut % (Auto) (45-73) % Lymph % (Auto) (20-40) % [place] % (Auto) (2-11) % Eos % (Auto) (0-4) % Baso % (Auto) (0-2) % Lymph # (Auto) (1.2-4.9) X10*3/uL [place] # (Auto) (0.1-1.2) X10*3/uL Eos # (Auto) (0.0-0.4) X10*3/uL Baso # (Auto) (0.0-0.2) X10*3/uL Abs Immat Gran (auto) (0.00-0.03) X10*3/uL Absolute Neuts (auto) (2.0-8.3) x10*3/uL Absolute Nucleated RBC (0.0-0.012) X10*3/uL Nucleated RBC % (auto) (0.0-0.2) /100WBC PT (10.9-12.4) SEC INR (0.9-1.1) VBG pH (7.32-7.43) VBG pCO2 mmHg VBG pO2 mmHg VBG HCO3 (22-26) mmol/L VBG O2 Saturation % VBG Base Excess mmol/L Sodium Potassium Chloride Carbon Dioxide Anion Gap BUN Creatinine Estim Creat Clear Calc Estimated GFR Random Glucose Lactic Acid (0.5-2.0) mmol/L Calcium Magnesium 1.8 Total Bilirubin Cancelled 1.4 H Direct Bilirubin Cancelled 0.4 AST Cancelled ALT Alkaline Phosphatase Troponin I High Sens (<3.5-17.0) ng/L C-Reactive Protein B-Natriuretic Peptide (<100) pg/mL Total Protein Albumin Ethyl Alcohol mg/dL Influenza Type A (PCR) (Negative) Influenza Type B (PCR) (Negative) RSV RNA Qual (PCR) (Negative) SARS-CoV-2 RNA (RT-PCR) (Negative) 07/17/24 07/17/24 07/17/24 Range/Units 15:21 15:21 15:21 WBC (4.8-10.8) X10*3/uL RBC (4.20-5.50) X10*6/uL Hgb (12.0-16.0) g/dl Hct (37.0-47.0) % MCV (80.0-98.0) fL MCH (27.0-33.0) pg MCHC (31.0-35.0) g/dl RDW (11.0-16.0) % Plt Count (160-400) X10*3/uL MPV (9.4-12.3) fL Immature Gran % (Auto) (0.0-0.4) % Neut % (Auto) (45-73) % Lymph % (Auto) (20-40) % [place] % (Auto) (2-11) % Eos % (Auto) (0-4) % Baso % (Auto) (0-2) % Lymph # (Auto) (1.2-4.9) X10*3/uL [place] # (Auto) (0.1-1.2) X10*3/uL Eos # (Auto) (0.0-0.4) X10*3/uL Baso # (Auto) (0.0-0.2) X10*3/uL Abs Immat Gran (auto) (0.00-0.03) X10*3/uL Absolute Neuts (auto) (2.0-8.3) x10*3/uL Absolute Nucleated RBC (0.0-0.012) X10*3/uL Nucleated RBC % (auto) (0.0-0.2) /100WBC PT (10.9-12.4) SEC INR (0.9-1.1) VBG pH (7.32-7.43) VBG pCO2 mmHg VBG pO2 mmHg VBG HCO3 (22-26) mmol/L VBG O2 Saturation % VBG Base Excess mmol/L Sodium Potassium Chloride Carbon Dioxide Anion Gap BUN Creatinine Estim Creat Clear Calc Estimated GFR Random Glucose Lactic Acid (0.5-2.0) mmol/L Calcium Magnesium Total Bilirubin Direct Bilirubin AST 24 ALT Cancelled 6 Alkaline Phosphatase Cancelled 75 Troponin I High Sens < 2.7 (<3.5-17.0) ng/L C-Reactive Protein Cancelled B-Natriuretic Peptide (<100) pg/mL Total Protein Albumin Ethyl Alcohol mg/dL Influenza Type A (PCR) (Negative) Influenza Type B (PCR) (Negative) RSV RNA Qual (PCR) (Negative) SARS-CoV-2 RNA (RT-PCR) (Negative) 07/17/24 07/17/24 07/17/24 Range/Units 15:21 15:21 15:21 WBC (4.8-10.8) X10*3/uL RBC (4.20-5.50) X10*6/uL Hgb (12.0-16.0) g/dl Hct (37.0-47.0) % MCV (80.0-98.0) fL MCH (27.0-33.0) pg MCHC (31.0-35.0) g/dl RDW (11.0-16.0) % Plt Count (160-400) X10*3/uL MPV (9.4-12.3) fL Immature Gran % (Auto) (0.0-0.4) % Neut % (Auto) (45-73) % Lymph % (Auto) (20-40) % [place] % (Auto) (2-11) % Eos % (Auto) (0-4) % Baso % (Auto) (0-2) % Lymph # (Auto) (1.2-4.9) X10*3/uL [place] # (Auto) (0.1-1.2) X10*3/uL Eos # (Auto) (0.0-0.4) X10*3/uL Baso # (Auto) (0.0-0.2) X10*3/uL Abs Immat Gran (auto) (0.00-0.03) X10*3/uL Absolute Neuts (auto) (2.0-8.3) x10*3/uL Absolute Nucleated RBC (0.0-0.012) X10*3/uL Nucleated RBC % (auto) (0.0-0.2) /100WBC PT (10.9-12.4) SEC INR (0.9-1.1) VBG pH (7.32-7.43) VBG pCO2 mmHg VBG pO2 mmHg VBG HCO3 (22-26) mmol/L VBG O2 Saturation % VBG Base Excess mmol/L Sodium Potassium Chloride Carbon Dioxide Anion Gap BUN Creatinine Estim Creat Clear Calc Estimated GFR Random Glucose Lactic Acid (0.5-2.0) mmol/L Calcium Magnesium Total Bilirubin Direct Bilirubin AST ALT Alkaline Phosphatase Troponin I High Sens (<3.5-17.0) ng/L C-Reactive Protein 1.80 H B-Natriuretic Peptide 28 (<100) pg/mL Total Protein Cancelled 7.0 Albumin Cancelled 4.0 Ethyl Alcohol < 10 mg/dL Influenza Type A (PCR) (Negative) Influenza Type B (PCR) (Negative) RSV RNA Qual (PCR) (Negative) SARS-CoV-2 RNA (RT-PCR) (Negative) 07/17/24 07/17/24 07/17/24 Range/Units 15:22 15:23 15:30 WBC (4.8-10.8) X10*3/uL RBC (4.20-5.50) X10*6/uL Hgb (12.0-16.0) g/dl Hct (37.0-47.0) % MCV (80.0-98.0) fL MCH (27.0-33.0) pg MCHC (31.0-35.0) g/dl RDW (11.0-16.0) % Plt Count (160-400) X10*3/uL MPV (9.4-12.3) fL Immature Gran % (Auto) (0.0-0.4) % Neut % (Auto) (45-73) % Lymph % (Auto) (20-40) % [place] % (Auto) (2-11) % Eos % (Auto) (0-4) % Baso % (Auto) (0-2) % Lymph # (Auto) (1.2-4.9) X10*3/uL [place] # (Auto) (0.1-1.2) X10*3/uL Eos # (Auto) (0.0-0.4) X10*3/uL Baso # (Auto) (0.0-0.2) X10*3/uL Abs Immat Gran (auto) (0.00-0.03) X10*3/uL Absolute Neuts (auto) (2.0-8.3) x10*3/uL Absolute Nucleated RBC (0.0-0.012) X10*3/uL Nucleated RBC % (auto) (0.0-0.2) /100WBC PT 12.4 (10.9-12.4) SEC INR 1.1 (0.9-1.1) VBG pH 7.42 (7.32-7.43) VBG pCO2 41 mmHg VBG pO2 36 mmHg VBG HCO3 27 H (22-26) mmol/L VBG O2 Saturation 59.0 % VBG Base Excess 2.6 mmol/L Sodium Potassium Chloride Carbon Dioxide Anion Gap BUN Creatinine Estim Creat Clear Calc Estimated GFR Random Glucose Lactic Acid 1.0 (0.5-2.0) mmol/L Calcium Magnesium Total Bilirubin Direct Bilirubin AST ALT Alkaline Phosphatase Troponin I High Sens (<3.5-17.0) ng/L C-Reactive Protein B-Natriuretic Peptide (<100) pg/mL Total Protein Albumin Ethyl Alcohol mg/dL Influenza Type A (PCR) NEGATIVE (Negative) Influenza Type B (PCR) NEGATIVE (Negative) RSV RNA Qual (PCR) NEGATIVE (Negative) SARS-CoV-2 RNA (RT-PCR) NEGATIVE (Negative) Discharge Plan Discharge Prescriptions: No Action cyclobenzaprine 10 mg tablet 10 mg PO BEDTIME Rx Instructions: side effect is drowsiness. Do not take at work or while driving. nicotine 21 mg/24 hr Patch 24 Hour 21 mg transdermal DAILY Qty: 30 0RF albuterol sulfate 1.25 mg/3 mL solution for nebulization 1.25 mg inhalation Q4H PRN (Reason: Wheezing) cholecalciferol (vitamin D3) [Vitamin D3] 25 mcg (1,000 unit) capsule 25 mcg PO DAILY amitriptyline 10 mg Tablet 10 mg PO BEDTIME PRN (Reason: Insomnia) simvastatin 10 mg tablet 10 mg PO BEDTIME Rx Instructions: pt states she takes in am amlodipine 5 mg tablet 5 mg PO DAILY albuterol sulfate 90 mcg/actuation HFA aerosol inhaler 2 puff PO Q4H PRN (Reason: Shortness Of Breath Or Wheezing) ipratropium-albuterol 0.5 mg-3 mg(2.5 mg base)/3 mL solution for nebulization 3 ml inhalation Q6H PRN (Reason: wheezing) Qty: 180 0RF Trelegy Ellipta 200-62.5-25 mcg blister with device 1 inh inhalation DAILY Qty: 60 3RF Print Language: Micronesian
--- NOTE | 2024-07-17 14:45 | ECG_ITS ---
Test Reason : DISPENA Blood Pressure : / mmHG Vent. Rate : 100 BPM Atrial Rate : 100 BPM P-R Int : 138 ms QRS Dur : 082 ms QT Int : 292 ms P-R-T Axes : 073 073 220 degrees QTc Int : 376 ms Normal sinus rhythm Nonspecific ST and T wave abnormality Abnormal ECG When compared with ECG of 03-OCT-2023 06:43, Nonspecific T wave abnormality now evident in Inferior leads QT has shortened Referred By: Bhavin Pacheco Electronically Signed By:Jah Will
[2024-07-17] MEDS: Albuterol Sulfate 5 MG, Albuterol/Iprat 2.5/0.5MG 3 ML 3 ML INHALE (15:06)
[2024-07-17] MEDS: methylPREDNISolone Sod Succ 125 MG/2 ML VIAL 80 MG IVPUSH (15:24)
[2024-07-17 15:28] LABS: MANUAL DIFF FLAG NO
[2024-07-17 15:31] LABS: Basophils Absolute Auto 0.1 X10*3/uL (0.0-0.2); Basophils Percent Auto 0.5 % (0-2); Eosinophils Absolute Auto 0.2 X10*3/uL (0.0-0.4); Eosinophils Percent Auto 1.8 % (0-4); Hematocrit 44.4 % (37.0-47.0); Imm Gran Abs Auto 0.06 X10*3/uL (0.00-0.03); Imm Gran Pct Auto 0.5 % (0.0-0.4); Lymphocytes Absolute Auto 0.7 X10*3/uL (1.2-4.9); Lymphocytes Percent Auto 5.4 % (20-40); Mean Corpuscular HGB Conc 33.8 g/dl (31.0-35.0); Mean Corpuscular Hemoglobin 30.9 pg (27.0-33.0); Mean Corpuscular Volume 91.5 fL (80.0-98.0); Mean Platelet Volume 8.7 fL (9.4-12.3); Monocytes Absolute Auto 1.2 X10*3/uL (0.1-1.2); Monocytes Percent Auto 9.5 % (2-11); Neutrophils Absolute Auto 10.4 x10*3/uL (2.0-8.3); Neutrophils Percent Auto 82.3 % (45-73); Platelet Count 207 X10*3/uL (160-400); Red Blood Count 4.85 X10*6/uL (4.20-5.50); Red Cell Distribution Width 12.6 % (11.0-16.0); White Blood Count 12.6 X10*3/uL (4.8-10.8)
[2024-07-17 15:34] LABS: Venous Blood Gas Refer to POC result
[2024-07-17 15:35] LABS: VBG Base Excess 2.6 mmol/L; VBG HCO3 27 mmol/L (22-26); VBG pCO2 41 mmHg; VBG pH 7.42 (7.32-7.43); VBG pO2 36 mmHg
[2024-07-17 15:35] LABS: INTERNATIONAL NORM RATIO 1.1 (0.9-1.1); Prothrombin Time 12.4 SEC (10.9-12.4)
[2024-07-17] MEDS: Acetaminophen 325 MG TABLET 975 MG PO (15:48)
[2024-07-17 15:49] LABS: Alanine Aminotransferase 6 U/L (0-31); Alkaline Phosphatase 75 U/L (39-117); Anion Gap 14 (12-20); Aspartate Amino Transferase 24 U/L (5-31); Bilirubin Direct 0.4 mg/dL (0.0-0.5); Bilirubin Total 1.4 mg/dL (0.0-1.0); Blood Urea Nitrogen 15 mg/dL (9-16); Calcium 10.1 mg/dL (8.4-10.2); Carbon Dioxide 25 mmol/L (22-29); Chloride 102 mmol/L (96-108); Creatinine Clr Calc Pharmacy 48.4; Estimated Glomerular Filt Rate 57; Ethanol < 10 mg/dL; Glucose Random 106 mg/dL (60-115); Magnesium 1.8 mg/dL (1.6-2.6); Potassium 3.7 mmol/L (3.3-5.1); Sodium 137 mmol/L (135-145)
[2024-07-17 15:53] LABS: Troponin-I High Sensitivity < 2.7 ng/L (<3.5-17.0)
--- NOTE | 2024-07-17 15:53 | PC.NURSE ---
Pt presents to ED via EMS from home, reports 3 days of SOB and cough worsening. Has hx of COPD, used inhaler and nebs at home with no relief, no baseline O2. Alert and oriented, breathing slightly labored, skin febrile, pale. Denies any pain. Reports SOB, cough and fevers. NSR on bedside site monitor. SPO2 88-94% on RA. Breathing RX given by RT. Rectal temp 101, tylenol administered
--- NOTE | 2024-07-17 15:55 | MHC.EDTECH ---
This pct assumed care of Patient at 1500 ,vitals taken ,Patient 2nd sets of blood culture drawn and sent to lab ,ekg taken and was read by Provider , Patient Comfortable watching television in bed ,Family member at bedside .
[2024-07-17 16:01] LABS: B Type Natriuretic Peptide 28 pg/mL (<100)
[2024-07-17 16:21] LABS: Influenza A PCR NEGATIVE (Negative); Influenza B PCR NEGATIVE (Negative); Resp Syncy Virus RNA Qual PCR NEGATIVE (Negative); SARS COV2 PCR INHOUSE NEGATIVE (Negative)
[2024-07-17] MEDS: cefTRIAXone sodium 1 GM VIAL IVPUSH (16:37)
[2024-07-17] MEDS: Azithromycin 500 MG in 0.9 % Sodium Chloride 250 ML 125 MG IV (16:38)
[2024-07-17] MEDS: Albuterol Sulfate 2.5 MG, Albuterol/Iprat 2.5/0.5MG 3 ML 3 ML INHALE (17:27)
--- NOTE | 2024-07-17 18:19 | PC.NURSE ---
Per provider, have pt on 1.5L O2 to maintain sats.
--- NOTE | 2024-07-17 18:29 | P.HPHOSP_ITS ---
History of Present Illness Date of Service: 07/17/24 Chief Complaint: sob 68F PMH severe COPD not on home o2, presnted with sob. Patient states on going symptoms for about 2 and half days. Shortness breath, cough with productive sputum, denies fevers at home but has had 101 in the ED. denies chest pain, nausea, vomiting, dysuria, abdominal pain. Chest x-ray in ED unremarkable. Flu COVID RSV negative. Noted to be hypoxic 87% on room air requiring 2 L for 91% Review of Systems 2 Review of Systems: Yes all other systems are reviewed and are negative [facility] Medical History COPD (chronic obstructive pulmonary disease) Family History Mother Breast CA Surgical History H/O total hysterectomy Hx of colonoscopy (~05/2019) History of tubal ligation Social History Household Members: None Household Members Other:: goes to significant other house 3x a week Housing: Apartment Housing Other:: 2 family house Do you presently have visiting nurse or other home services: Yes ([facility]) Alcohol intake: current Alcohol intake frequency: does not drink Patient Tobacco Use Status: Current someday Tobacco user Tobacco use type: Cigarette Cigarettes Per Day: 4 Smoked in Last 30 Days: Yes e-Cigarette/Vaping Use: Never Used Second Hand Smoke Exposure: No Use of substances other than those prescribed or required for medical reasons: Yes Substance Use Type: Marijuana Advance Directives: No Advance Directives Information Provided: Yes Advance Directives Date on File: 11/16/23 service: No Current occupational status: retired Meds Allergies Allergy/AdvReac Type Severity Reaction Status Date / Time No Known Allergies Allergy Verified 07/17/24 14:41 [No Known Allergies*] Home Medications ?Medication ?Instructions ?Recorded ?Confirmed ?Last Taken ?Type simvastatin 10 mg tablet 10 mg PO BEDTIME 01/28/21 11/17/23 10/02/23 History albuterol sulfate 90 mcg/actuation 2 puff PO Q4H PRN Shortness Of 02/03/22 11/17/23 07/20/23 History aerosol inhaler Breath Or Wheezing amlodipine 5 mg tablet 5 mg PO DAILY 02/03/22 11/17/23 10/02/23 History albuterol sulfate 1.25 mg/3 mL 1.25 mg inhalation Q4H PRN Wheezing 07/21/23 11/17/23 07/20/23 History solution for nebulization amitriptyline 10 mg tablet 10 mg PO BEDTIME PRN Insomnia 07/21/23 11/17/23 Unknown History cholecalciferol (vitamin D3) 25 25 mcg PO DAILY 07/21/23 11/17/23 10/02/23 History mcg (1,000 unit) capsule (Vitamin D3) cyclobenzaprine 10 mg tablet 10 mg PO BEDTIME 10/03/23 11/17/23 10/02/23 History cetirizine 10 mg tablet 10 mg PO DAILY 07/17/24 Unknown History Physical Exam 2 Vital Signs and Narrative: Vital Signs: Last Vital Signs Temp 98.9 F 07/17/24 17:14 Pulse 103 H 07/17/24 17:29 Resp 14 07/17/24 17:29 BP 113/67 07/17/24 17:14 Pulse Ox 95 07/17/24 17:14 O2 Del Method Nasal Cannula 07/17/24 17:14 O2 Flow Rate 1 07/17/24 17:14 Oxygen Flow Rate 2 07/17/24 14:39 BMI result Body Mass Index 20.0 General: AO X 3, some shortness breath Resp: Wheezing bilateral, no accessory muscles used CVS: S1,S2,RRR GI: soft, non tender, non distended Neuro: motor grossly intact, alert Psych: appropriate affect, appropriate insight Results Labs 07/17/24 15:21 07/17/24 15:21 Labs: Laboratory Results - last 24 hr 07/17/24 07/17/24 07/17/24 15:21 15:21 15:21 MCV 91.5 MCH 30.9 MCHC 33.8 RDW 12.6 Plt Count 207 D MPV 8.7 L Immature Gran % (Auto) 0.5 H Neut % (Auto) 82.3 H Lymph % (Auto) 5.[address] [place] % (Auto) 9.5 Eos % (Auto) 1.8 Baso % (Auto) 0.5 Lymph # (Auto) 0.[address] [place] # (Auto) 1.2 Eos # (Auto) 0.2 Baso # (Auto) 0.1 Abs Immat Gran (auto) 0.06 H Absolute Neuts (auto) 10.4 H Absolute Nucleated RBC 0.000 Nucleated RBC % (auto) 0.0 PT INR VBG pH VBG pCO2 VBG pO2 VBG HCO3 VBG O2 Saturation VBG Base Excess Anion Gap Cancelled 14 Estim Creat Clear Calc Cancelled 48.4 Estimated GFR Cancelled Random Glucose Lactic Acid Calcium Magnesium Total Bilirubin Direct Bilirubin AST ALT Alkaline Phosphatase Troponin I High Sens C-Reactive Protein B-Natriuretic Peptide Total Protein Albumin Ethyl Alcohol Influenza Type A (PCR) Influenza Type B (PCR) RSV RNA Qual (PCR) SARS-CoV-2 RNA (RT-PCR) 07/17/24 07/17/24 07/17/24 15:21 15:21 15:21 MCV MCH MCHC RDW Plt Count MPV Immature Gran % (Auto) Neut % (Auto) Lymph % (Auto) [place] % (Auto) Eos % (Auto) Baso % (Auto) Lymph # (Auto) [place] # (Auto) Eos # (Auto) Baso # (Auto) Abs Immat Gran (auto) Absolute Neuts (auto) Absolute Nucleated RBC Nucleated RBC % (auto) PT INR VBG pH VBG pCO2 VBG pO2 VBG HCO3 VBG O2 Saturation VBG Base Excess Anion Gap Estim Creat Clear Calc Estimated GFR 57 Random Glucose Cancelled 106 Lactic Acid Calcium Cancelled 10.1 D Magnesium Cancelled Total Bilirubin Direct Bilirubin AST ALT Alkaline Phosphatase Troponin I High Sens C-Reactive Protein B-Natriuretic Peptide Total Protein Albumin Ethyl Alcohol Influenza Type A (PCR) Influenza Type B (PCR) RSV RNA Qual (PCR) SARS-CoV-2 RNA (RT-PCR) 07/17/24 07/17/24 07/17/24 15:21 15:21 15:21 MCV MCH MCHC RDW Plt Count MPV Immature Gran % (Auto) Neut % (Auto) Lymph % (Auto) [place] % (Auto) Eos % (Auto) Baso % (Auto) Lymph # (Auto) [place] # (Auto) Eos # (Auto) Baso # (Auto) Abs Immat Gran (auto) Absolute Neuts (auto) Absolute Nucleated RBC Nucleated RBC % (auto) PT INR VBG pH VBG pCO2 VBG pO2 VBG HCO3 VBG O2 Saturation VBG Base Excess Anion Gap Estim Creat Clear Calc Estimated GFR Random Glucose Lactic Acid Calcium Magnesium 1.8 Total Bilirubin Cancelled 1.4 H Direct Bilirubin Cancelled 0.4 AST Cancelled ALT Alkaline Phosphatase Troponin I High Sens C-Reactive Protein B-Natriuretic Peptide Total Protein Albumin Ethyl Alcohol Influenza Type A (PCR) Influenza Type B (PCR) RSV RNA Qual (PCR) SARS-CoV-2 RNA (RT-PCR) 07/17/24 07/17/24 07/17/24 15:21 15:21 15:21 MCV MCH MCHC RDW Plt Count MPV Immature Gran % (Auto) Neut % (Auto) Lymph % (Auto) [place] % (Auto) Eos % (Auto) Baso % (Auto) Lymph # (Auto) [place] # (Auto) Eos # (Auto) Baso # (Auto) Abs Immat Gran (auto) Absolute Neuts (auto) Absolute Nucleated RBC Nucleated RBC % (auto) PT INR VBG pH VBG pCO2 VBG pO2 VBG HCO3 VBG O2 Saturation VBG Base Excess Anion Gap Estim Creat Clear Calc Estimated GFR Random Glucose Lactic Acid Calcium Magnesium Total Bilirubin Direct Bilirubin AST 24 ALT Cancelled 6 Alkaline Phosphatase Cancelled 75 Troponin I High Sens < 2.7 C-Reactive Protein Cancelled B-Natriuretic Peptide Total Protein Albumin Ethyl Alcohol Influenza Type A (PCR) Influenza Type B (PCR) RSV RNA Qual (PCR) SARS-CoV-2 RNA (RT-PCR) 07/17/24 07/17/24 07/17/24 15:21 15:21 15:21 MCV MCH MCHC RDW Plt Count MPV Immature Gran % (Auto) Neut % (Auto) Lymph % (Auto) [place] % (Auto) Eos % (Auto) Baso % (Auto) Lymph # (Auto) [place] # (Auto) Eos # (Auto) Baso # (Auto) Abs Immat Gran (auto) Absolute Neuts (auto) Absolute Nucleated RBC Nucleated RBC % (auto) PT INR VBG pH VBG pCO2 VBG pO2 VBG HCO3 VBG O2 Saturation VBG Base Excess Anion Gap Estim Creat Clear Calc Estimated GFR Random Glucose Lactic Acid Calcium Magnesium Total Bilirubin Direct Bilirubin AST ALT Alkaline Phosphatase Troponin I High Sens C-Reactive Protein 1.80 H B-Natriuretic Peptide 28 Total Protein Cancelled 7.0 Albumin Cancelled 4.0 Ethyl Alcohol < 10 Influenza Type A (PCR) Influenza Type B (PCR) RSV RNA Qual (PCR) SARS-CoV-2 RNA (RT-PCR) 07/17/24 07/17/24 07/17/24 15:22 15:23 15:30 MCV MCH MCHC RDW Plt Count MPV Immature Gran % (Auto) Neut % (Auto) Lymph % (Auto) [place] % (Auto) Eos % (Auto) Baso % (Auto) Lymph # (Auto) [place] # (Auto) Eos # (Auto) Baso # (Auto) Abs Immat Gran (auto) Absolute Neuts (auto) Absolute Nucleated RBC Nucleated RBC % (auto) PT 12.4 INR 1.1 VBG pH 7.42 VBG pCO2 41 VBG pO2 36 VBG HCO3 27 H VBG O2 Saturation 59.0 VBG Base Excess 2.6 Anion Gap Estim Creat Clear Calc Estimated GFR Random Glucose Lactic Acid 1.0 Calcium Magnesium Total Bilirubin Direct Bilirubin AST ALT Alkaline Phosphatase Troponin I High Sens C-Reactive Protein B-Natriuretic Peptide Total Protein Albumin Ethyl Alcohol Influenza Type A (PCR) NEGATIVE Influenza Type B (PCR) NEGATIVE RSV RNA Qual (PCR) NEGATIVE SARS-CoV-2 RNA (RT-PCR) NEGATIVE Imaging Radiologist's Impressions: Impressions Chest X-Ray 07/17/24 16:10 IMPRESSION: Findings as above. Electronically signed by: Edi Lawrence MD 07/17/2024 04:49 PM [facility] Assessment and Plan (1) COPD (chronic obstructive pulmonary disease): Status: Acute Plan 68F PMH severe COPD not on home o2, presented with sob Sepsis, not severe and Acute hypoxic respiratory failure secondary to COPD with acute decompensation IV steroids, DuoNebs Check CT chest to rule out pneumonia, continue Rocephin and azithromycin for now Follow up cultures dvt prophylaxis - lovenox full code Patient with hypoxia due to COPD exacerbation expected require at least 2 midnights inpatient for treatment with IV steroids and DuoNebs Quality Stroke Does the patient have a stroke diagnosis?: No VTE Prior VTE?: No VTE Risk Level:: Medical - moderate - high VTE Device Contraindication: Treatment Not Indicated VTE Drug Contraindication: N/A - Med Ordered
--- NOTE | 2024-07-17 19:41 | PHA.MEDREC ---
Addendum entered by Reji Kauffman eva 07/17/24 19:52: med rec reviewed Original Note: Pharmacy Consult ? Medication Reconciliation Pharmacy has completed the medication reconciliation. Spoke to patient to confirm med list. Patient was able to name what medications she takes. Patent states she no longer takes Cyclobenzaprine 10 mg. Patent confirm she was still taking Simvastatin 10 mg, however last fill date was 12/14/23 for 90 days. Patent last took her medications 07/17/24 in the morning.
[2024-07-17] MEDS: Albuterol/Iprat 2.5/0.5MG 3 ML AMPUL.NEB INHALE (20:26)
[2024-07-17] MEDS: Enoxaparin Sodium 40 MG/0.4 ML SYRINGE SUBCUT (20:33)
--- NOTE | 2024-07-17 23:56 | MHC.EDTECH ---
This pct assumed care of Patient at 2300 ,vitals taken ,Bladder Scan done ,RN aware of result ,Patient awake ,breaths are even and unlabored ,No apparent distress noted Call root within Pt reach .
[2024-07-18] VITALS (13 sets, daily range): BP systolic 103–119; BP diastolic 58–84; PULSE 65–99; RESP 16–230; TEMP 36.4–36.9; O2SAT 90–99
[2024-07-18] MEDS: 0.9 % Sodium Chloride Flush 3 ML SYRINGE IVFLUSH ×2 (01:30→09:27)
[2024-07-18] MEDS: Melatonin 3 MG TABLET 6 MG PO ×2 (01:50→21:59)
--- NOTE | 2024-07-18 02:36 | MHC.EDTECH ---
0200 rounding done ,vitals taken ,RN Sindhu is aware that Patient still has not voided since yesterday .Patient said she does not have to urinate .
--- NOTE | 2024-07-18 03:04 | MHC.EDTECH ---
Patient was assisted unto bedside commode ,Patient void 550 ml ,urine sample collected and sent to lab .
[2024-07-18 03:11] LABS: Appearance Urine Clear; Color Urine Dark Yellow; Glucose Urine UA Negative (Negative); Leukocyte Esterase Urine Small (1+) (Negative); Nitrite Urine Negative (Negative); PH 6.5 (5.0-9.0); UMIC TRIGGER UACC YES; Urine Blood Moderate (2+) (Negative); Urine Ketones 15 mg/dL (Negative); Urine Protein 30 (1+) mg/dL (Neg-Trace)
[2024-07-18 03:15] LABS: Bacteria Urine 4+ (None Seen); Hyaline Casts Urine 0-2 /LPF (0-2); RBC Urine >20 /HPF (0-2); Squamous Epithelial Cell Urine 0-2 /HPF (0-2); UACC Culture Trigger YES
[2024-07-18 05:11] LABS: Hematocrit 41.7 % (37.0-47.0); Hemoglobin 14.6 g/dl (12.0-16.0); Mean Corpuscular Hemoglobin 31.5 pg (27.0-33.0); Mean Corpuscular Volume 89.9 fL (80.0-98.0); Platelet Count 214 X10*3/uL (160-400); Red Blood Count 4.64 X10*6/uL (4.20-5.50); Red Cell Distribution Width 12.6 % (11.0-16.0); White Blood Count 11.1 X10*3/uL (4.8-10.8)
[2024-07-18 05:32] LABS: Anion Gap 17 (12-20); Blood Urea Nitrogen 21 mg/dL (9-16); Carbon Dioxide 21 mmol/L (22-29); Chloride 102 mmol/L (96-108); Creatinine Clr Calc Pharmacy 43.8; Estimated Glomerular Filt Rate 51; Glucose Fasting 186 mg/dL (60-99); Potassium 3.8 mmol/L (3.3-5.1); Sodium 136 mmol/L (135-145)
--- NOTE | 2024-07-18 09:16 | HO.PM.IMPN ---
Subjective Subjective Date of Service: 07/18/24 Interval History: Improving but still short of breath Review of Systems Review of Systems: Yes all other systems are reviewed and are negative Physical Exam Vital Signs: Vital Signs: Last Vital Signs Temp 98.4 F 07/18/24 07:54 Pulse 85 07/18/24 07:54 Resp 19 07/18/24 07:54 BP 119/80 07/18/24 07:54 Pulse Ox 92 07/18/24 07:54 O2 Del Method Nasal Cannula 07/18/24 07:54 O2 Flow Rate 2 07/18/24 07:54 Oxygen Flow Rate 2 07/17/24 14:39 BMI result Body Mass Index 20.0 General: AO X 3, no acute distress Resp: Wheezing bilateral, no accessory muscles used CVS: S1,S2,RRR GI: soft, non tender, non distended Neuro: motor grossly intact, alert Psych: appropriate affect, appropriate insight Objective Data Active Medications Acetaminophen (Acetaminophen 325 Mg Tablet) 650 mg PO Q6H PRN PRN Reason: Pain, Mild (Pain Scale 1-3), fever or headache Albuterol/Ipratropium (Albuterol/Iprat 2.5/0.5mg 3 Ml Ampul.Neb) 3 ml INHALE RQ4H WHILE AWAKE [facility] Last Admin: 07/17/24 20:26 Dose: 3 ml Documented By: TONIO Azithromycin (Azithromycin 500 Mg Tablet) 500 mg PO Q24H [facility] Calcium Carbonate (Calcium Carbonate 750 Mg Tab.Chew) 750 mg PO Q4H PRN PRN Reason: Heartburn Ceftriaxone Sodium (Ceftriaxone Sodium 1 Gm Vial) 1 gm IVPUSH Q24H [facility] Enoxaparin Sodium (Enoxaparin Sodium 40 Mg/0.4 Ml Syringe) 40 mg SUBCUT Q24H [facility] Last Admin: 07/17/24 20:33 Dose: 40 mg Documented By: TRISTA Magnesium Hydroxide (Milk Of Magnesia 30 Ml Oral.Susp) 30 ml PO DAILY PRN PRN Reason: Constipation Melatonin (Melatonin 3 Mg Tablet) 6 mg PO BEDTIME PRN PRN Reason: Insomnia Last Admin: 07/18/24 01:50 Dose: 6 mg Documented By: LAKISHA Methylprednisolone Sodium Succinate (Methylprednisolone Sod Succ 40 Mg/Ml Vial) 40 mg IVPUSH Q12H [facility] Sodium Chloride (0.9 % Sodium Chloride Flush 3 Ml Syringe) 3 ml IVFLUSH QSHIFT ADRIAN Last Admin: 07/18/24 01:30 Dose: 3 ml Documented By: TRISTA Labs 07/18/24 04:49 07/18/24 04:49 Labs: Laboratory Results - last 24 hr 07/17/24 07/17/24 07/17/24 15:21 15:21 15:21 MCV 91.5 MCH 30.9 MCHC 33.8 RDW 12.6 Plt Count 207 D MPV 8.7 L Immature Gran % (Auto) 0.5 H Neut % (Auto) 82.3 H Lymph % (Auto) 5.4 L [place] % (Auto) 9.5 Eos % (Auto) 1.8 Baso % (Auto) 0.5 Lymph # (Auto) 0.7 L [place] # (Auto) 1.2 Eos # (Auto) 0.2 Baso # (Auto) 0.1 Abs Immat Gran (auto) 0.06 H Absolute Neuts (auto) 10.4 H Absolute Nucleated RBC 0.000 Nucleated RBC % (auto) 0.0 PT INR VBG pH VBG pCO2 VBG pO2 VBG HCO3 VBG O2 Saturation VBG Base Excess Anion Gap Cancelled 14 Estim Creat Clear Calc Cancelled 48.4 Estimated GFR Cancelled Random Glucose Fasting Glucose Lactic Acid Calcium Magnesium Total Bilirubin Direct Bilirubin AST ALT Alkaline Phosphatase Troponin I High Sens C-Reactive Protein B-Natriuretic Peptide Total Protein Albumin Urine Color Urine Appearance Urine pH Ur Specific [place] Urine Protein Urine Glucose (UA) Urine Ketones Urine Blood Urine Nitrite Ur Leukocyte Esterase Urine RBC Urine WBC Ur Squamous Epith Cells Urine Bacteria Hyaline Casts Ethyl Alcohol Influenza Type A (PCR) Influenza Type B (PCR) RSV RNA Qual (PCR) SARS-CoV-2 RNA (RT-PCR) 07/17/24 07/17/24 07/17/24 15:21 15:21 15:21 MCV MCH MCHC RDW Plt Count MPV Immature Gran % (Auto) Neut % (Auto) Lymph % (Auto) [place] % (Auto) Eos % (Auto) Baso % (Auto) Lymph # (Auto) [place] # (Auto) Eos # (Auto) Baso # (Auto) Abs Immat Gran (auto) Absolute Neuts (auto) Absolute Nucleated RBC Nucleated RBC % (auto) PT INR VBG pH VBG pCO2 VBG pO2 VBG HCO3 VBG O2 Saturation VBG Base Excess Anion Gap Estim Creat Clear Calc Estimated GFR 57 Random Glucose Cancelled 106 Fasting Glucose Lactic Acid Calcium Cancelled 10.1 D Magnesium Cancelled Total Bilirubin Direct Bilirubin AST ALT Alkaline Phosphatase Troponin I High Sens C-Reactive Protein B-Natriuretic Peptide Total Protein Albumin Urine Color Urine Appearance Urine pH Ur Specific [place] Urine Protein Urine Glucose (UA) Urine Ketones Urine Blood Urine Nitrite Ur Leukocyte Esterase Urine RBC Urine WBC Ur Squamous Epith Cells Urine Bacteria Hyaline Casts Ethyl Alcohol Influenza Type A (PCR) Influenza Type B (PCR) RSV RNA Qual (PCR) SARS-CoV-2 RNA (RT-PCR) 07/17/24 07/17/24 07/17/24 15:21 15:21 15:21 MCV MCH MCHC RDW Plt Count MPV Immature Gran % (Auto) Neut % (Auto) Lymph % (Auto) [place] % (Auto) Eos % (Auto) Baso % (Auto) Lymph # (Auto) [place] # (Auto) Eos # (Auto) Baso # (Auto) Abs Immat Gran (auto) Absolute Neuts (auto) Absolute Nucleated RBC Nucleated RBC % (auto) PT INR VBG pH VBG pCO2 VBG pO2 VBG HCO3 VBG O2 Saturation VBG Base Excess Anion Gap Estim Creat Clear Calc Estimated GFR Random Glucose Fasting Glucose Lactic Acid Calcium Magnesium 1.8 Total Bilirubin Cancelled 1.4 H Direct Bilirubin Cancelled 0.4 AST Cancelled ALT Alkaline Phosphatase Troponin I High Sens C-Reactive Protein B-Natriuretic Peptide Total Protein Albumin Urine Color Urine Appearance Urine pH Ur Specific [place] Urine Protein Urine Glucose (UA) Urine Ketones Urine Blood Urine Nitrite Ur Leukocyte Esterase Urine RBC Urine WBC Ur Squamous Epith Cells Urine Bacteria Hyaline Casts Ethyl Alcohol Influenza Type A (PCR) Influenza Type B (PCR) RSV RNA Qual (PCR) SARS-CoV-2 RNA (RT-PCR) 07/17/24 07/17/24 07/17/24 15:21 15:21 15:21 MCV MCH MCHC RDW Plt Count MPV Immature Gran % (Auto) Neut % (Auto) Lymph % (Auto) [place] % (Auto) Eos % (Auto) Baso % (Auto) Lymph # (Auto) [place] # (Auto) Eos # (Auto) Baso # (Auto) Abs Immat Gran (auto) Absolute Neuts (auto) Absolute Nucleated RBC Nucleated RBC % (auto) PT INR VBG pH VBG pCO2 VBG pO2 VBG HCO3 VBG O2 Saturation VBG Base Excess Anion Gap Estim Creat Clear Calc Estimated GFR Random Glucose Fasting Glucose Lactic Acid Calcium Magnesium Total Bilirubin Direct Bilirubin AST 24 ALT Cancelled 6 Alkaline Phosphatase Cancelled 75 Troponin I High Sens < 2.7 C-Reactive Protein Cancelled B-Natriuretic Peptide Total Protein Albumin Urine Color Urine Appearance Urine pH Ur Specific [place] Urine Protein Urine Glucose (UA) Urine Ketones Urine Blood Urine Nitrite Ur Leukocyte Esterase Urine RBC Urine WBC Ur Squamous Epith Cells Urine Bacteria Hyaline Casts Ethyl Alcohol Influenza Type A (PCR) Influenza Type B (PCR) RSV RNA Qual (PCR) SARS-CoV-2 RNA (RT-PCR) 07/17/24 07/17/24 07/17/24 15:21 15:21 15:21 MCV MCH MCHC RDW Plt Count MPV Immature Gran % (Auto) Neut % (Auto) Lymph % (Auto) [place] % (Auto) Eos % (Auto) Baso % (Auto) Lymph # (Auto) [place] # (Auto) Eos # (Auto) Baso # (Auto) Abs Immat Gran (auto) Absolute Neuts (auto) Absolute Nucleated RBC Nucleated RBC % (auto) PT INR VBG pH VBG pCO2 VBG pO2 VBG HCO3 VBG O2 Saturation VBG Base Excess Anion Gap Estim Creat Clear Calc Estimated GFR Random Glucose Fasting Glucose Lactic Acid Calcium Magnesium Total Bilirubin Direct Bilirubin AST ALT Alkaline Phosphatase Troponin I High Sens C-Reactive Protein 1.80 H B-Natriuretic Peptide 28 Total Protein Cancelled 7.0 Albumin Cancelled 4.0 Urine Color Urine Appearance Urine pH Ur Specific [place] Urine Protein Urine Glucose (UA) Urine Ketones Urine Blood Urine Nitrite Ur Leukocyte Esterase Urine RBC Urine WBC Ur Squamous Epith Cells Urine Bacteria Hyaline Casts Ethyl Alcohol < 10 Influenza Type A (PCR) Influenza Type B (PCR) RSV RNA Qual (PCR) SARS-CoV-2 RNA (RT-PCR) 07/17/24 07/17/24 07/17/24 15:22 15:23 15:30 MCV MCH MCHC RDW Plt Count MPV Immature Gran % (Auto) Neut % (Auto) Lymph % (Auto) [place] % (Auto) Eos % (Auto) Baso % (Auto) Lymph # (Auto) [place] # (Auto) Eos # (Auto) Baso # (Auto) Abs Immat Gran (auto) Absolute Neuts (auto) Absolute Nucleated RBC Nucleated RBC % (auto) PT 12.4 INR 1.1 VBG pH 7.42 VBG pCO2 41 VBG pO2 36 VBG HCO3 27 H VBG O2 Saturation 59.0 VBG Base Excess 2.6 Anion Gap Estim Creat Clear Calc Estimated GFR Random Glucose Fasting Glucose Lactic Acid 1.0 Calcium Magnesium Total Bilirubin Direct Bilirubin AST ALT Alkaline Phosphatase Troponin I High Sens C-Reactive Protein B-Natriuretic Peptide Total Protein Albumin Urine Color Urine Appearance Urine pH Ur Specific [place] Urine Protein Urine Glucose (UA) Urine Ketones Urine Blood Urine Nitrite Ur Leukocyte Esterase Urine RBC Urine WBC Ur Squamous Epith Cells Urine Bacteria Hyaline Casts Ethyl Alcohol Influenza Type A (PCR) NEGATIVE Influenza Type B (PCR) NEGATIVE RSV RNA Qual (PCR) NEGATIVE SARS-CoV-2 RNA (RT-PCR) NEGATIVE 07/18/24 07/18/24 03:03 04:49 MCV 89.9 MCH 31.5 MCHC 35.0 RDW 12.6 Plt Count 214 MPV 9.0 L Immature Gran % (Auto) Neut % (Auto) Lymph % (Auto) [place] % (Auto) Eos % (Auto) Baso % (Auto) Lymph # (Auto) [place] # (Auto) Eos # (Auto) Baso # (Auto) Abs Immat Gran (auto) Absolute Neuts (auto) Absolute Nucleated RBC 0.000 Nucleated RBC % (auto) 0.0 PT INR VBG pH VBG pCO2 VBG pO2 VBG HCO3 VBG O2 Saturation VBG Base Excess Anion Gap 17 Estim Creat Clear Calc 43.8 Estimated GFR 51 Random Glucose Fasting Glucose 186 H Lactic Acid Calcium 10.0 Magnesium Total Bilirubin Direct Bilirubin AST ALT Alkaline Phosphatase Troponin I High Sens C-Reactive Protein B-Natriuretic Peptide Total Protein Albumin Urine Color Dark Yellow Urine Appearance Clear Urine pH 6.5 Ur Specific [place] 1.020 Urine Protein 30 (1+) H Urine Glucose (UA) Negative Urine Ketones 15 Urine Blood Moderate (2+) H Urine Nitrite Negative Ur Leukocyte Esterase Small (1+) H Urine RBC >20 H Urine WBC 11-20 H Ur Squamous Epith Cells 0-2 Urine Bacteria 4+ Hyaline Casts 0-2 Ethyl Alcohol Influenza Type A (PCR) Influenza Type B (PCR) RSV RNA Qual (PCR) SARS-CoV-2 RNA (RT-PCR) Assessment and Plan (1) COPD (chronic obstructive pulmonary disease): Status: Acute Plan 68F PMH severe COPD not on home o2, presented with sob Sepsis, not severe and Acute hypoxic respiratory failure secondary to COPD with acute decompensation IV steroids, DuoNebs No obvious pneumonia on CT chest but given bronchial wall thickening, mucus and mild bronchiectasis will continue Rocephin and azithromycin for now Follow up cultures dvt prophylaxis - lovenox full code reason for continued hospitalization: Still hypoxic, wheezing Quality Stroke Does the patient have a stroke diagnosis?: No VTE Prior VTE?: No VTE Risk Level:: Medical - moderate - high VTE Device Contraindication: Treatment Not Indicated VTE Drug Contraindication: N/A - Med Ordered
[2024-07-18] MEDS: cefTRIAXone sodium 1 GM VIAL IVPUSH (09:38)
[2024-07-18] MEDS: methylPREDNISolone Sod Succ 40 MG/ML VIAL IVPUSH ×2 (09:38→21:59)
[2024-07-18] MEDS: ALPRAZolam 0.25 MG TABLET PO ×2 (09:38→21:59)
--- NOTE | 2024-07-18 09:41 | PC.NURSE ---
Addendum entered by Gabby Fernandez 07/18/24 09:45: pt is also feeling anxious and shaky at this time, was given Xanax Original Note: pt is alert and oriented, skin pwd, respirations slightly labored breathing anywhere from 16-22 at times, ls some wheezing with expiration, sating 91-93% on 1l at this time increased the oxygen 2l at this time , pt denies pain,
[2024-07-18] MEDS: amLODIPine Besylate 5 MG TABLET PO (11:02)
[2024-07-18] MEDS: Cholecalciferol (Vitamin D3) 25 MCG TABLET PO (11:02)
[2024-07-18] MEDS: Albuterol/Iprat 2.5/0.5MG 3 ML AMPUL.NEB INHALE ×3 (11:34→19:30)
[2024-07-18] MEDS: Azithromycin 500 MG TABLET PO (18:03)
[2024-07-18] MEDS: Enoxaparin Sodium 40 MG/0.4 ML SYRINGE SUBCUT (18:03)
--- NOTE | 2024-07-18 18:34 | PC.NURSE ---
Pt c/o burning sensation to lower back, surgical site. PA informed while at bedside. Pain meds given w/ + effect. Pt 1a OOB to recliner. otherwise no acute events this shift
--- NOTE | 2024-07-18 18:43 | PC.NURSE ---
Pt stated she gets severe tremors while on steroids. MD was informed. no acute complications this shift.
[2024-07-18] MEDS: Atorvastatin Calcium 10 MG TABLET PO (21:59)
[2024-07-19] VITALS (8 sets, daily range): BP systolic 100–127; BP diastolic 60–77; PULSE 69–105; RESP 12–18; TEMP 36.1–36.6; O2SAT 88–100
[2024-07-19] MEDS: Albuterol/Iprat 2.5/0.5MG 3 ML AMPUL.NEB INHALE ×4 (07:55→18:50)
[2024-07-19] MEDS: cefTRIAXone sodium 1 GM VIAL IVPUSH (09:00)
[2024-07-19] MEDS: amLODIPine Besylate 5 MG TABLET PO (09:00)
[2024-07-19] MEDS: Cholecalciferol (Vitamin D3) 25 MCG TABLET PO (09:00)
[2024-07-19] MEDS: methylPREDNISolone Sod Succ 40 MG/ML VIAL IVPUSH ×2 (09:01→20:22)
[2024-07-19] MEDS: 0.9 % Sodium Chloride Flush 3 ML SYRINGE IVFLUSH ×3 (09:01→20:22)
--- NOTE | 2024-07-19 09:22 | HO.PM.IMPN ---
Subjective Subjective Date of Service: 07/19/24 Interval History: overall improved but still wheezy and sob Physical Exam Vital Signs: Vital Signs: Last Vital Signs Temp 96.9 F 07/19/24 08:06 Pulse 83 07/19/24 08:06 Resp 12 07/19/24 08:06 BP 108/71 07/19/24 08:06 Pulse Ox 92 07/19/24 08:06 O2 Del Method Nasal Cannula 07/19/24 08:06 O2 Flow Rate 2 07/19/24 08:06 Oxygen Flow Rate 2 07/17/24 14:39 BMI result Body Mass Index 20.0 General: AO X 3, no acute distress Resp: Wheezing bilateral, no accessory muscles used CVS: S1,S2,RRR GI: soft, non tender, non distended Neuro: motor grossly intact, alert Psych: appropriate affect, appropriate insight Objective Data Active Medications Acetaminophen (Acetaminophen 325 Mg Tablet) 650 mg PO Q6H PRN PRN Reason: Pain, Mild (Pain Scale 1-3), fever or headache Albuterol/Ipratropium (Albuterol/Iprat 2.5/0.5mg 3 Ml Ampul.Neb) 3 ml INHALE RQ4H WHILE AWAKE [facility] Last Admin: 07/19/24 07:55 Dose: 3 ml Documented By: JUSTYNA Alprazolam (Alprazolam 0.25 Mg Tablet) 0.25 mg PO TID PRN PRN Reason: Anxiety Last Admin: 07/18/24 21:59 Dose: 0.25 mg Documented By: TRUDY Amitriptyline HCl (Amitriptyline Hcl 10 Mg Tablet) 10 mg PO BEDTIME PRN PRN Reason: Insomnia Amlodipine Besylate (Amlodipine Besylate 5 Mg Tablet) 5 mg PO DAILY [facility]; Protocol Last Admin: 07/19/24 09:00 Dose: 5 mg Documented By: LEONARDO Atorvastatin Calcium (Atorvastatin Calcium 10 Mg Tablet) 10 mg PO BEDTIME [facility] Last Admin: 07/18/24 21:59 Dose: 10 mg Documented By: TRUDY Azithromycin (Azithromycin 500 Mg Tablet) 500 mg PO Q24H [facility] Last Admin: 07/18/24 18:03 Dose: 500 mg Documented By: BLAINE Calcium Carbonate (Calcium Carbonate 750 Mg Tab.Chew) 750 mg PO Q4H PRN PRN Reason: Heartburn Ceftriaxone Sodium (Ceftriaxone Sodium 1 Gm Vial) 1 gm IVPUSH Q24H [facility] Last Admin: 07/19/24 09:00 Dose: 1 gm Documented By: LEONARDO Enoxaparin Sodium (Enoxaparin Sodium 40 Mg/0.4 Ml Syringe) 40 mg SUBCUT Q24H [facility] Last Admin: 07/18/24 18:03 Dose: 40 mg Documented By: BLAINE Magnesium Hydroxide (Milk Of Magnesia 30 Ml Oral.Susp) 30 ml PO DAILY PRN PRN Reason: Constipation Melatonin (Melatonin 3 Mg Tablet) 6 mg PO BEDTIME PRN PRN Reason: Insomnia Last Admin: 07/18/24 21:59 Dose: 6 mg Documented By: ELKE-HÉCTOR Methylprednisolone Sodium Succinate (Methylprednisolone Sod Succ 40 Mg/Ml Vial) 40 mg IVPUSH Q12H [facility] Last Admin: 07/19/24 09:01 Dose: 40 mg Documented By: LEONARDO Sodium Chloride (0.9 % Sodium Chloride Flush 3 Ml Syringe) 3 ml IVFLUSH QSHIFT [facility] Last Admin: 07/19/24 09:01 Dose: 3 ml Documented By: LEONARDO Vitamin D (Cholecalciferol (Vitamin D3) 25 Mcg Tablet) 25 mcg PO DAILY [facility] Last Admin: 07/19/24 09:00 Dose: 25 mcg Documented By: LEONARDO Labs 07/18/24 04:49 07/18/24 04:49 Microbiology Microbiology Results: Microbiology 07/17/24 15:35 Blood Culture - Preliminary Blood - Venous No growth after 24 hours. 07/17/24 15:21 Blood Culture - Preliminary Blood - Venous No growth after 24 hours. Assessment and Plan (1) COPD (chronic obstructive pulmonary disease): Status: Acute Plan 68F PMH severe COPD not on home o2, presented with sob Sepsis, not severe and Acute hypoxic respiratory failure secondary to COPD with acute decompensation continue IV steroids, DuoNebs No obvious pneumonia on CT chest but given bronchial wall thickening, mucus and mild bronchiectasis will continue Rocephin and azithromycin wean o2 pyuria/bacturia unclear significance, being covered with rocephin follow up culture dvt prophylaxis - lovenox full code reason for continued hospitalization: Still hypoxic, wheezing Quality Stroke Does the patient have a stroke diagnosis?: No VTE Prior VTE?: No VTE Risk Level:: Medical - moderate - high VTE Device Contraindication: Treatment Not Indicated VTE Drug Contraindication: N/A - Med Ordered
--- NOTE | 2024-07-19 09:44 | MHC.CM.PN ---
IMM delivered. Patient lives in an apartment alone. Has a [employer] 9.5 hrs/week to assist w/ showers and cooking. Ambulates independently. Has a shower chair. PCP Anne Caballero MD Reports she has an HCP naming her S.O. Sebastián Sheets as her HCA. Copy requested. DP: Goal is home, resume [employer] services, ?need for VNA. S.O. will transport. CM will continue to follow.
[2024-07-19] MEDS: Enoxaparin Sodium 40 MG/0.4 ML SYRINGE SUBCUT (17:07)
[2024-07-19] MEDS: Azithromycin 500 MG TABLET PO (17:07)
[2024-07-19] MEDS: Atorvastatin Calcium 10 MG TABLET PO (20:22)
[2024-07-19] MEDS: ALPRAZolam 0.25 MG TABLET PO (22:47)
[2024-07-20] VITALS (7 sets, daily range): BP systolic 114–129; BP diastolic 60–75; PULSE 71–89; RESP 14–18; TEMP 36.2–37.1; O2SAT 90–93
[2024-07-20] MEDS: methylPREDNISolone Sod Succ 40 MG/ML VIAL IVPUSH ×2 (08:57→20:14)
[2024-07-20] MEDS: Cholecalciferol (Vitamin D3) 25 MCG TABLET PO (08:57)
[2024-07-20] MEDS: cefTRIAXone sodium 1 GM VIAL IVPUSH (08:57)
[2024-07-20] MEDS: amLODIPine Besylate 5 MG TABLET PO (08:57)
[2024-07-20] MEDS: 0.9 % Sodium Chloride Flush 3 ML SYRINGE IVFLUSH ×2 (09:02→20:14)
--- NOTE | 2024-07-20 10:03 | P.PNIM_ITS ---
Subjective Subjective Date of Service: 07/20/24 Interval History: overall improved but still wheezy and sob Physical Exam 2 Vital Signs: Vital Signs: Last Vital Signs Temp 97.3 F 07/20/24 07:09 Pulse 71 07/20/24 07:09 Resp 16 07/20/24 07:09 BP 114/60 07/20/24 07:09 Pulse Ox 93 07/20/24 07:09 O2 Del Method Room Air 07/20/24 07:09 O2 Flow Rate 2 07/19/24 08:06 Oxygen Flow Rate 2 07/17/24 14:39 BMI result Body Mass Index 20.0 General: AO X 3, no acute distress Resp: Wheezing bilateral, no accessory muscles used CVS: S1,S2,RRR GI: soft, non tender, non distended Neuro: motor grossly intact, alert Psych: appropriate affect, appropriate insight Objective Data Active Medications Acetaminophen (Acetaminophen 325 Mg Tablet) 650 mg PO Q6H PRN PRN Reason: Pain, Mild (Pain Scale 1-3), fever or headache Albuterol/Ipratropium (Albuterol/Iprat 2.5/0.5mg 3 Ml Ampul.Neb) 3 ml INHALE RQ4H WHILE AWAKE [facility] Last Admin: 07/20/24 07:44 Dose: Not Given Documented By: OSMAN Non-Admin Reason: Patient Asleep Alprazolam (Alprazolam 0.25 Mg Tablet) 0.25 mg PO TID PRN PRN Reason: Anxiety Last Admin: 07/19/24 22:47 Dose: 0.25 mg Documented By: HAWA Amitriptyline HCl (Amitriptyline Hcl 10 Mg Tablet) 10 mg PO BEDTIME PRN PRN Reason: Insomnia Amlodipine Besylate (Amlodipine Besylate 5 Mg Tablet) 5 mg PO DAILY [facility]; Protocol Last Admin: 07/20/24 08:57 Dose: 5 mg Documented By: KHUSHBU Atorvastatin Calcium (Atorvastatin Calcium 10 Mg Tablet) 10 mg PO BEDTIME [facility] Last Admin: 07/19/24 20:22 Dose: 10 mg Documented By: HAWA Azithromycin (Azithromycin 500 Mg Tablet) 500 mg PO Q24H [facility] Last Admin: 07/19/24 17:07 Dose: 500 mg Documented By: LEONARDO Calcium Carbonate (Calcium Carbonate 750 Mg Tab.Chew) 750 mg PO Q4H PRN PRN Reason: Heartburn Ceftriaxone Sodium (Ceftriaxone Sodium 1 Gm Vial) 1 gm IVPUSH Q24H [facility] Last Admin: 07/20/24 08:57 Dose: 1 gm Documented By: KHUSHBU Enoxaparin Sodium (Enoxaparin Sodium 40 Mg/0.4 Ml Syringe) 40 mg SUBCUT Q24H [facility] Last Admin: 07/19/24 17:07 Dose: 40 mg Documented By: LEONARDO Magnesium Hydroxide (Milk Of Magnesia 30 Ml Oral.Susp) 30 ml PO DAILY PRN PRN Reason: Constipation Melatonin (Melatonin 3 Mg Tablet) 6 mg PO BEDTIME PRN PRN Reason: Insomnia Last Admin: 07/18/24 21:59 Dose: 6 mg Documented By: TRUDY Methylprednisolone Sodium Succinate (Methylprednisolone Sod Succ 40 Mg/Ml Vial) 40 mg IVPUSH Q12H [facility] Last Admin: 07/20/24 08:57 Dose: 40 mg Documented By: KHUSHBU Sodium Chloride (0.9 % Sodium Chloride Flush 3 Ml Syringe) 3 ml IVFLUSH QSHIFT [facility] Last Admin: 07/20/24 09:02 Dose: 3 ml Documented By: KHUSHBU Vitamin D (Cholecalciferol (Vitamin D3) 25 Mcg Tablet) 25 mcg PO DAILY [facility] Last Admin: 07/20/24 08:57 Dose: 25 mcg Documented By: KHUSHBU Labs 07/18/24 04:49 07/18/24 04:49 Microbiology Microbiology Results: Microbiology 07/18/24 Unknown Urine Culture - Final Urine clean catch - Clean Catch Midstream Streptococcus viridans group 07/17/24 15:35 Blood Culture - Preliminary Blood - Venous No growth after 48 hours. 07/17/24 15:21 Blood Culture - Preliminary Blood - Venous No growth after 48 hours. Assessment and Plan (1) COPD (chronic obstructive pulmonary disease): Status: Acute Plan 68F PMH severe COPD not on home o2, presented with sob Sepsis, not severe and Acute hypoxic respiratory failure secondary to COPD with acute decompensation continue IV steroids, DuoNebs No obvious pneumonia on CT chest but given bronchial wall thickening, mucus and mild bronchiectasis will continue Rocephin and azithromycin now on room air pyuria/bacturia unclear significance, being covered with rocephin follow up culture dvt prophylaxis - lovenox full code reason for continued hospitalization: Still sob, wheezing Quality Stroke Does the patient have a stroke diagnosis?: No VTE Prior VTE?: No VTE Risk Level:: Medical - moderate - high VTE Device Contraindication: Treatment Not Indicated VTE Drug Contraindication: N/A - Med Ordered
[2024-07-20] MEDS: Albuterol/Iprat 2.5/0.5MG 3 ML AMPUL.NEB INHALE ×3 (11:17→19:57)
[2024-07-20] MEDS: Enoxaparin Sodium 40 MG/0.4 ML SYRINGE SUBCUT (17:41)
[2024-07-20] MEDS: Azithromycin 500 MG TABLET PO (17:41)
[2024-07-20] MEDS: Atorvastatin Calcium 10 MG TABLET PO (20:14)
[2024-07-20] MEDS: ALPRAZolam 0.25 MG TABLET PO (22:02)
[2024-07-21 03:35] VITALS: BP 137/86; PULSE 69; RESP 16; TEMP 36.2; O2SAT 92
[2024-07-21] MEDS: Albuterol/Iprat 2.5/0.5MG 3 ML AMPUL.NEB INHALE ×2 (07:53→11:10)
[2024-07-21 07:54] VITALS: PULSE 78; RESP 18; O2SAT 93
[2024-07-21] MEDS: amLODIPine Besylate 5 MG TABLET PO (07:59)
[2024-07-21 08:00] VITALS: BP 140/86; PULSE 68; RESP 18; TEMP 36.6; O2SAT 93
[2024-07-21] MEDS: Cholecalciferol (Vitamin D3) 25 MCG TABLET PO (08:00)
[2024-07-21] MEDS: cefTRIAXone sodium 1 GM VIAL IVPUSH (08:01)
[2024-07-21] MEDS: methylPREDNISolone Sod Succ 40 MG/ML VIAL IVPUSH (08:01)
[2024-07-21] MEDS: 0.9 % Sodium Chloride Flush 3 ML SYRINGE IVFLUSH (08:02)
--- NOTE | 2024-07-21 08:28 | P.DS_ITS ---
DS: Providers Provider Date of Service: 07/21/24 Date of admission: 07/17/24 18:28 Date of discharge: 07/21/24 Primary care physician: Anne Caballero MD DS: Diagnosis Discharge Diagnosis (1) COPD (chronic obstructive pulmonary disease): Status: Acute DS: Summary Hospital Course Hospital Course: from initial hpi: 68F PMH severe COPD not on home o2, presnted with sob. Patient states on going symptoms for about 2 and half days. Shortness breath, cough with productive sputum, denies fevers at home but has had 101 in the ED. denies chest pain, nausea, vomiting, dysuria, abdominal pain. Chest x-ray in ED unremarkable. Flu COVID RSV negative. Noted to be hypoxic 87% on room air requiring 2 L for 91% hospital course: Patient was admitted for sepsis, not severe and acute hypoxic respiratory failure secondary to COPD with acute decompensation. She was treated with IV Solu-Medrol and DuoNebs. As well as ceftriaxone azithromycin. Symptoms improved and patient was able to be weaned to room air. She still has some wheezing but feels much better and will be discharged home on 5 more days of prednisone and 3 more days of azithromycin. Patient was noted to have pyuria and bacteriuria without symptoms. Unclear significance. Urine culture grew strep viridans and completed 4 days of ceftriaxone. Time Attestation Discharge Coordination Time (in mins): 32 Quality: Safe Use of Opioids Does Pt have an Active Cancer Diagnosis on the Problem List?: No Quality: Stroke Does the patient have a stroke diagnosis?: No Physical Exam Vital Signs: Vital Signs: Last Vital Signs Temp 97.8 F 07/21/24 08:00 Pulse 68 07/21/24 08:00 Resp 18 07/21/24 08:00 BP 140/86 H 07/21/24 08:00 Pulse Ox 93 07/21/24 08:00 O2 Del Method Room Air 07/21/24 08:00 O2 Flow Rate 2 07/19/24 08:06 Oxygen Flow Rate 2 07/17/24 14:39 BMI result Body Mass Index 20.0 General: AO X 3, no acute distress Resp: mild wheeze bilateral, no accessory muscles used CVS: S1,S2,RRR GI: soft, non tender, non distended Neuro: motor grossly intact, alert Psych: appropriate affect, appropriate insight DS: Data Data Completed and Pending Labs on day of discharge: Preliminary micro results at discharge 07/17/24 15:35 Blood Culture - Preliminary Blood - Venous No growth after 48 hours. 07/17/24 15:21 Blood Culture - Preliminary Blood - Venous No growth after 48 hours. Discharge Plan Discharge Anticipated Discharge Date/Time: 07/21/24 08:26 Patient Disposition: Home, Self-Care Discharge Diagnosis: copd Referrals: Anne Caballero MD [Primary Care Provider] - 1 Week Discharge Medications: New alprazolam 0.25 mg Tablet 0.25 mg PO TID PRN (Reason: Anxiety) Qty: 15 0RF azithromycin 500 mg Tablet 500 mg PO Q24H Qty: 3 0RF prednisone 20 mg tablet 40 mg PO DAILY Qty: 10 0RF Continued albuterol sulfate 1.25 mg/3 mL solution for nebulization 1.25 mg inhalation Q4H PRN (Reason: Wheezing) cholecalciferol (vitamin D3) [Vitamin D3] 25 mcg (1,000 unit) capsule 25 mcg PO DAILY amitriptyline 10 mg Tablet 10 mg PO BEDTIME PRN (Reason: Insomnia) cetirizine 10 mg tablet 10 mg PO DAILY nicotine 21 mg/24 hr patch 24 hour 21 mg transdermal DAILY PRN (Reason: Smoking Cessation) simvastatin 10 mg tablet 10 mg PO BEDTIME Rx Instructions: pt states she takes in am amlodipine 5 mg tablet 5 mg PO DAILY albuterol sulfate 90 mcg/actuation HFA aerosol inhaler 2 puff PO Q4H PRN (Reason: Shortness Of Breath Or Wheezing) ipratropium-albuterol 0.5 mg-3 mg(2.5 mg base)/3 mL solution for nebulization 3 ml inhalation Q6H PRN (Reason: wheezing) Qty: 180 0RF Trelegy Ellipta 200-62.5-25 mcg blister with device 1 inh inhalation DAILY Qty: 60 3RF Discharge Orders: Discharge Order (Routine); Ordered 07/21/24 Ordered By: Francisco Salgado Diet: Advance to usual diet Activity on Discharge: As tolerated Stand Alone Forms: Patient Portal Discharge page Print Language: Armenian Care Plan Goals: recovery Health Concerns: copd Plan of Treatment: 5 more days prednisone, 3 more days azithro Assessment: see above
--- NOTE | 2024-07-21 08:44 | MHC.CM.PN ---
pt dcd home self care
[2024-07-21 11:10] VITALS: PULSE 84; RESP 18; O2SAT 92
== END 2024-07-21 11:36 | disposition home or self-care (01) | DRG 871 ==
LOC: HO.ED 17:25 → HO.EDOVER 18:37 → HO.S3 07-18 09:08
PROVIDERS: Admitting Provider Internal Medicine; Emergency Provider Emergency Medicine; PCP Student in an Organized Health Care Education/Training Program; Visit Provider Internal Medicine
DX: A41.9 Sepsis, unspecified organism (principal); J96.01 Acute respiratory failure with hypoxia; J44.1 Chronic obstructive pulmonary disease with (acute) exacerbation; F17.210 Nicotine dependence, cigarettes, uncomplicated; Z71.6 Tobacco abuse counseling; Z20.822 Contact with and (suspected) exposure to COVID-19; Z79.51 Long term (current) use of inhaled steroids; Z79.899 Other long term (current) drug therapy
CPT/HCPCS: 0241U; 36415; 71045; 71250; 80048; 80076; 80307; 81001; 82803; 83605; 83735; 83880; 84484; 85025; 85027; 85610; 86140; 87040; 87086; 93005; 94640; 99285; J0456; J0696; J1650; J2919

== ENCOUNTER → 2024-07-17 14:45 | Outpatient (BNV) | payer OTHER, SELFPAY | PROVIDERS: Admitting Provider Internal Medicine; Emergency Provider Emergency Medicine; PCP Student in an Organized Health Care Education/Training Program; Visit Provider Internal Medicine Cardiovascular Disease | DX: R94.31 Abnormal electrocardiogram [ECG] [EKG] (principal) | CPT/HCPCS: 93010 ==

== ENCOUNTER → 2024-07-17 14:55 | Outpatient (BNV) | payer OTHER, SELFPAY | PROVIDERS: Emergency Provider Emergency Medicine; PCP Student in an Organized Health Care Education/Training Program; Visit Provider Internal Medicine | DX: A41.9 Sepsis, unspecified organism (principal); J96.01 Acute respiratory failure with hypoxia; J44.1 Chronic obstructive pulmonary disease with (acute) exacerbation | CPT/HCPCS: 99232; 99239 ==

== ENCOUNTER 2024-10-14 16:14 | Outpatient (REF) | payer OTHER, SELFPAY ==
--- NOTE | ~2024-10-14 | XR_ITS ---
EXAMINATION: XR CHEST CLINICAL INFORMATION: 1 month h/o upper right posterior chest pain COMPARISON: CT chest 12 11/14/2023 TECHNIQUE: 2 views of the chest were obtained. FINDINGS: The lungs are hyperinflated but clear acute process. The heart size and pulmonary vascularity is normal. No gross bony abnormality seen. There is mild thoracolumbar scoliosis. XR/XR chest 2V IMPRESSION: Hyperinflated lungs without acute process. Electronically signed by: Devin Staples MD 10/15/2024 10:50 AM THU
[2024-10-14 17:12] LABS: Anion Gap 13 (12-20); Blood Urea Nitrogen 15 mg/dL (9-16); Calcium 10.2 mg/dL (8.4-10.2); Carbon Dioxide 26 mmol/L (22-29); Chloride 103 mmol/L (96-108); Estimated Glomerular Filt Rate 53; Glucose Random 104 mg/dL (60-115); Potassium 4.4 mmol/L (3.3-5.1); Sodium 138 mmol/L (135-145)
--- OUTSIDE RECORDS SUMMARY | 2024-10-14 18:52 | XMS_ITS | Encounter Summary ---
Author Organization [employer] Address [address] [place] [address] Care Team Providers Care Cement Boat And Barge Loader Name Role Phone Anne Caballero MD Primary Care Provider [phone] Reason for Visit * Reason Comments Routine Cleaning Encounter Details Date Type Department Care Team (Late st Contact Info) Description 10/07/2024 10:00 AM EST Office Visit [facility] [address] [place] [address] Eddie Rodriguez Dental calculus (Primary Dx) Social History Tobacco Use Types Packs/Day Years Used Date Smoking Tobacco: Every Day Cigarettes 0.5 45 Passive Smoke Exposure: Never Smokeless Tobacco: Never Alcohol Use Standard Drinks/Week Comments Not Currently 1 (1 standard drink = 0.6 oz pur e alcohol) Depression Answer Date Recorded Patient Health Questionnaire-9 Score 4 10/20/2022 Housing Stability Answer Date Recorded What is your housing situation today? I have paulino kong 12/29/[address] you li ve. Do you have problems with any of the following? None of the above 12/29/2023 Food Insecurity Answer Date Recorded Within the past 12 months, y ou worried that your food would run out before you got money to buy more: Never True 12/29/2023 Within the past 12 months,th e food you bought just didn't last and you didn't have enough money to get more: Never True Transportation Answer Date Recorded In the past 12 months, has l ack of transportation kept you from medical appts, meetings, work or from getting things needed for daily living? No 12/29/2023 Utilities Answer Date Recorded In the past 12 months, has t he electric, gas, oil or water company threatened to shut off services in your home? No 12/29/2023 Depression Answer Date Recorded Patient Health Questionnaire-2 Score 0 10/20/2022 Internet Access Answer Date Recorded Internet Access Q1 Yes 05/23/2024 Internet Access Q2 Not on file 05/23/2024 Comments No Sex and Gender Information Value Date Recorded Sex Assigned at Female 06/13/2022 10:17 AM EDT Legal Sex Female 10:17 AM EDT Gender Identity Female 06/13/2022 10:17 AM EDT Sexual Orientation Choose not to disclose 2021 10:17 AM EDT documented as of this encounter Last Filed Vital Signs Vital Sign Reading Time Taken Comments Blood Pressure 122/66 10/07/2024 10:04 AM EST Pulse 78 10/07/2024 10:04 AM EST Temperature - - Respiratory Rate - - Oxygen Saturation - - Inhaled Oxygen Concentration - - Weight - - Height - - Body Mass Index - - documented in this encounter Progress Notes * Eddie Rodriguez - 10/07/2024 10:00 AM EST Patient ID: Juana Lopez is a 69 y.o. female. Time Out: Timeout Date: 10/07/24, Timeout Time: 1005 Location: [facility] Tooth: Maxilla and Mandible Procedure: Prophylaxis Verified the above with patient, assistant librarian, and provider. Confirmed via patient's chart, intraorally and by radiographs. Insurance Associate: not applicable Medical Hx: Vitals: Blood pressure 122/66, pulse 78. Medications, Med Hx reviewed with patient and updated in chart. Treatment Provided Dental procedures in this visit D1110 - PROPHYLAXIS - ADULT (Completed) Service provider: Eddie Rodriguez Billing provider: Cr Monroe DMD [id number] - ORAL HYGIENE INSTRUCTIONS (Completed) Service provider: Eddie Rodriguez Billing provider: Cr Monroe DMD [id number] - CASE PRESENTATION, DETAILED AND EXTENSIVE TREATMENT PLANNING (Completed) Service provider: Eddie Rodriguez Billing provider: Cr Monroe DMD Instruments Used: Ultrasonic Scalers and Prophy angle Fluoride: N/A Oral Cancer Screening: No lesions Head/Neck Exam: No Lesions Calculus: Light and Localized Plaque: Light and Generalized Stain: Light and Localized Bleeding: Light and Localized Gingiva: Healthy [place]: Fair Perio Chart: Not Completed Oral hygiene instructions provided to patient including brushing technique and flossing. Recommendations: [place] two times daily, modified purdy technique, Floss daily Recall Frequency: 6 mo NV: 6mr Hygienist: Eddie Rodriguez RDH documented in this encounter Plan of Treatment Upcoming Encounters Date Type Department Care Team (Late st Contact Info) Description 04/15/2025 10:00 AM EDT Office Visit [facility] [address] [place] [address] Eddie Rodriguez Scheduled Orders Name Type Priority Associated Diagnoses Orde r Schedule PROPHYLAXIS - ADULT Dental Routine 1 Occ urrences starting 10/07/2024 documented as of this encounter Procedures Procedure Name Priority Date/Time Associated Diagnosis Comments PROPHYLAXIS - ADULT Routine 10/07/2024 1 0:00 AM EST ORAL HYGIENE INSTRUCTIONS Routine 2024 10:00 AM EST CASE PRESENTATION, DETAILED AND EXTENSIVE TREATMENT PLANNING Routine 10/07/2024 10:00 AM EST documented in this encounter Visit Diagnoses Diagnosis Dental calculus- Primary Accretions on teeth documented in this encounter Additional Health Concerns Assessment Noted Time PHQ-9 Depression Total Score: 4 10/21/19 23 9:37 AM EST documented as of this encounter Care Teams Cement Boat And Barge Loader Relationship Specialty Start Date End Date Anne Caballero MD [address] [place] [id number] PCP - General Family Medicine 07/30/12 documented as of this encounter
--- OUTSIDE RECORDS SUMMARY | 2024-10-14 18:52 | XMS_ITS | Encounter Summary ---
Author Organization [employer] Address [address] [place] [address] Care Team Providers Care Screw Machine Tender Name Role Phone Anne Caballero MD Primary Care Provider [phone] Reason for Visit * Reason Onset Date Comments FYI 01/02/2024 Encounter Details Date Type Department Care Team ([facility] Contact Info) Description 01/02/2024 Telephone [facility] [address] [place] [address] Anne Caballero MD [address] [place], [place] [id number] FYI Social History Tobacco Use Types Packs/Day Years [...] Recorded Patient Health Questionnaire-2 Score 0 10/20/2022 Comments No Sex and Gender Information Value Date Recorded Sex Assigned at Female 06/13/2022 10:17 AM EDT Legal Sex Female 10:17 AM EDT Gender Identity Female 06/13/2022 10:17 AM EDT Sexual Orientation Choose not to disclose 2021 10:17 AM EDT documented as of this encounter Miscellaneous Notes * Telephone Encounter - Cristopher Dupont RN - 01/02/2024 1:25 PM EDT Please see FYI below. * Telephone Encounter - Shante Chatman - 01/02/2024 1:19 PM EDT Tc from [facility] calling to inform PCP pt will be discharge today 01/01 from PT documented in this encounter Plan of Treatment Upcoming Encounters Date Type Department Care Team (Late st Contact Info) Description 04/15/2025 10:00 AM EDT Office Visit [facility] [address] [place] [address] Eddie Rodriguez documented as of this encounter Visit Diagnoses Not on filedocumented in this encounter Additional Health Concerns Assessment Noted Time PHQ-9 Depression Total Score: 4 10/21/19 23 9:37 AM EST documented as of this encounter Care Teams Screw Machine Tender Relationship Specialty Start Date End Date Anne Caballero MD [address] [place] [id number] PCP - General Family Medicine 07/30/12 documented as of this encounter
--- OUTSIDE RECORDS SUMMARY | 2024-10-14 18:52 | XMS_ITS | Encounter Summary ---
Author Organization [facility] Address [address] [place] [address] Phone Care Team Providers Care Predatory Animal Exterminator Name Role Phone Anne Caballero MD Primary Care Provider [phone] Encounter Details Date Type Department Care Team (Late st Contact Info) Description 03/29/2022 Documentation Only [facility] [address] [place] [address] Priscila Collins MD Social History Tobacco Use Types Packs/Day Years Used Date Smoking Tobacco: Former Cigarettes Smokeless Tobacco: Never Alcohol Use Standard Drinks/Week Comments Not Currently 0 (1 standard drink = 0.6 oz pur e alcohol) Comments Unknown Sex and Gender Information Value Date Recorded Sex Assigned at Not on file Legal Sex Female 8:54 AM EDT Gender Identity Not on file Sexual Orientation Not on file documented as of this encounter Plan of Treatment Not on file documented as of this encounter Visit Diagnoses Not on filedocumented in this encounter Care Teams Predatory Animal Exterminator Relationship Specialty Start Date End Date Anne Caballero MD [address] [place] [id number] PCP - General Family Medicine 02/21/22 documented as of this encounter
--- OUTSIDE RECORDS SUMMARY | 2024-10-14 18:52 | XMS_ITS | Clinical Summary ---
Author Organization [employer] Address [address] [place] [address] [address] [place] [address] Care Team Providers Care Operations And Intelligence Assistant Name Role Phone Anne Caballero MD Primary Care Provider [phone] Allergies No known active allergies Medications Fluticasone Furoate-Vilante rol 200-25 MCG/ACT aerosol powder INHALE ONE PUFF BY MOUTH EVERY DAY AT THE SAME TIME EVERY DAY 2 Active ketotifen (Zaditor) 0.025 % ophthalmic solution ADMINISTER 1 DROP INTO BOTH EYES TWO TIMES A DAY 10 mL 3 Active amLODIPine (Norvasc) 5 MG tablet Take 1 tablet (5 mg) by mouth in the morning. 30 tablet 11 4 Active Fluticasone Furoate-Vilante rol (Breo Ellipta) 200-25 MCG/ACT aerosol powderIndicatio ns:Chronic obstructive pulmonary disease, unspecified COPD type (CMS/HCC) Inhale 200 mcg Once per day. 60 each 3 4 Active simvastatin (Zocor) 10 MG tablet TAKE ONE TABLET BY MOUTH AT BEDTIME 90 tablet 1 4 Active albuterol 108 (90 Base) MCG/ACT inhalerIndicati ons:Chronic obstructive pulmonary disease, unspecified COPD type (CMS/HCC) Inhale 2 puffs every 4 (four) hours if needed for wheezing. 25.5 g 3 4 Active albuterol 1.25 MG/3ML nebulizer solutionIndicat ions:Chronic obstructive pulmonary disease, unspecified COPD type (CMS/HCC) Take 3 mL (1.25 mg) by nebulization every 4 (four) hours if needed for wheezing. 75 mL 11 4 03/14/20 25 Active amitriptyline (Elavil) 10 MG tablet Take 1 tablet (10 mg) by mouth at bedtime. 30 tablet 11 4 03/14/20 25 Active Trelegy Ellipta 200-62.5-25 MCG/ACT aerosol powder Inhale 1 puff Once per day. 4 Active cetirizine (ZyrTEC) 10 MG tablet TAKE ONE TABLET BY MOUTH EVERY DAY 90 tablet 4 Active D3-1000 25 MCG (1000 UT) capsule TAKE ONE CAPSULE BY MOUTH EVERY MORNING 90 capsule 4 Active acetaminophen (Tylenol) 500 MG tablet Take 2 tablets (1,000 mg) by mouth every 6 (six) hours if needed for moderate pain or fever for up to 25 doses. 50 tablet 5 Active ibuprofen 400 MG tablet Take 1 tablet (400 mg) by mouth every 6 (six) hours if needed for moderate pain or fever for up to 30 doses. 30 tablet 5 Active tiZANidine (Zanaflex) 2 MG tablet Take 1 tablet (2 mg) by mouth every 6 (six) hours if needed for muscle spasms for up to 10 days. 30 tablet 5 10/25/19 25 Active Active Problems Problem Noted Date Diagnosed Date Muscle tightness 01/25/2023 Assessment & Plan (01/25/2023 2:14 PM EDT): Bilateral thigh tightness/heaviness for over 1 month, denied new medications, no recent trauma, no weakness/tingling/pain. Will order blood work, and will start on muscle relaxant, told to apply cold pads, follow up with pcp in 1 month COPD (chronic obstructive pulmonary disease) 04/2023 Benign hypertension 06/15/2015 Anxiety 03/02/2012 Hyperlipidemia 02/13/2012 Hyperthyroidism 02/13/2012 Chronic hepatitis C 02/13/2012 Encounters Date Type Department Care Team Description 10/14/2024 3:00 PM EST Office Visit [facility] [address] [place] [phone] Sebastián Hunt MD Posterior chest pain (Primary Dx); Chronic right shoulder pain 10/14/2024 Telephone [facility] [address] [place] [address] Anne Caballero MD Nurse Triage 10/07/2024 10:00 AM EST Office Visit [facility] [address] [place] [address] Eddie Rodriguez Dental calculus (Primary Dx) 09/03/2024 11:00 AM EST Office Visit [facility] [address] [place] [address] Killian Rodriguez MD Seborrheic keratosis (Primary Dx); Lentigines 09/03/2024 Travel 07/17/2024 Orders Only GENERIC EXTERNAL DATA DEPARTMENT Provider, Generic External Data 07/17/2024 Telephone [facility] [address] [place] [address] Anne Caballero MD Nurse Triage from Last 3 Months Immunizations Name Administration Dates Next Due Influenza High-dose Quadriva lent Preservative Free 06/17/2020 Influenza Injectable Quadriv alant Preservative Free IIV4 MDCK 07/06/2018 Influenza injectable quadriv alent IIV4 with preservative 08/22/2017,05/16/2016,06/15/2015 Influenza, High Dose Seasona l, Preservative Free 05/31/2024 Influenza, IIV3, injectable 05/05/2014 Influenza, Split (incl. sam fied surface antigen) 06/12/2013,05/02/2012 Tdap 05/31/2024,03/06/2014 Zoster, Recombinant 12/20/2021,12/20/2021 Zoster, live 03/09/2016 Social History Tobacco Use Types Packs/Day Years Used Date Smoking Tobacco: Every Day Cigarettes 0.5 45 Passive Smoke Exposure: Never Smokeless Tobacco: Never Tobacco Cessation:Ready to Q uit: Not Asked; Counseling Given: Not Answered Alcohol Use Standard Drinks/Week Comments Not Currently 1 (1 standard drink = 0.6 oz pur e alcohol) Depression Answer Date Recorded Patient Health Questionnaire-9 Score 4 10/20/2022 Housing Stability Answer Date Recorded What is your housing situation today? I have paulino sing 12/29/[address] you li [...] not to disclose 2021 10:17 AM EDT Last Filed Vital Signs Vital Sign Reading Time Taken Comments Blood Pressure 114/81 10/14/2024 2:55 PM EST Pulse 100 10/14/2024 2:55 PM EST Temperature 36.7 ??C (98.1 ??F) 10/14/2024 2:55 PM ES T Respiratory Rate 18 10/14/2024 2:55 PM EST Oxygen Saturation 94% 10/14/2024 2:55 PM EST Inhaled Oxygen Concentration - - Weight 56.2 kg (124 lb) 10/14/2024 2:55 PM EST Height 164 cm (5' 4.57 ) 09/03/2024 11:09 AM EST Body Mass Index 20.91 09/03/2024 11:09 AM EST Plan of Treatment Upcoming Encounters Date Type Department Care Team (Late st Contact Info) Description 04/15/2025 10:00 AM EDT Office Visit [facility] [address] [place] [address] SammelisabethantonellaEddie Health Maintenance Due Date Last Done Comments CT Colonography 1955 Colonoscopy 1955 Dental Oral Exam 1955 Dental X-Ray: Full Mouth 1955 FIT 1955 FOBT 1955 Sigmoidoscopy 1955 Alcohol/Substance Use Screening 1965 Hepatitis A Vaccines (1 of 2 - Risk 2-dose series) 1972 Pneumococcal Vaccine: 50+ Years (1 of 2 - PCV) 1972 Lung Cancer Screening 2003 Hepatitis B Vaccines (1 of 3 - Risk 3-dose series) 2013 RSV Patients and Patients Aged 60 years or older (1 - Risk 60-74 years 1-dose series) 2013 Zoster Vaccines (3 of 3) 02/14/2022 022, 12/20/2021, 03/09/2016 Depression Screening 10/21/2023 10/20/2022, 10/21/19 23 COVID-19 Vaccine ( - season) 2024 11/10/2020, 10/08/2020 SDOH Screening 12/28/2024 12/29/2023 Dental X-Ray: Bitewings 04/05/2025 04/04/2024 Dental Prophylaxis 04/07/2025 10/07/2024, 0 04/04/2024, 03/02/2023 Tobacco Screening 10/14/2025 10/14/2024 Mammogram 06/27/2026 06/27/2024, 06/0 08/2022, 01/12/2023, Additional history exists Colorectal Cancer Screening 06/12/2027 FIT DNA/Cologuard 06/12/2027 06/12/2024 Lipid Panel 09/29/2028 09/29/2023, 03/0 04/2023, 10/14/2021, Additional history exists DTaP/Tdap/Td Vaccines (3 - Td or Tdap) 05/31/2034 05/31/2024, 03/06/2014 Influenza Vaccine Completed 05/31/2024, , 07/06/2018, Additional history exists HIB Vaccines Aged Out No longer eligi ble based on patient's age to complete this topic HPV Vaccines Aged Out No longer eligi ble based on patient's age to complete this topic IPV Vaccines Aged Out No longer eligi ble based on patient's age to complete this topic Meningococcal Vaccine Aged Out No debi hilda eligible based on patient's age to complete this topic RSV under 20 months Aged Out No longe r eligible based on patient's age to complete this topic Rotavirus Vaccines Aged Out No longer eligible based on patient's age to complete this topic Procedures Procedure Name Priority Date/Time Associated Diagnosis Comments BASIC METABOLIC PANEL Routine 10/14/2024 4:27 PM EST Posterior chest pain CASE PRESENTATION, DETAILED AND EXTENSIVE TREATMENT PLANNING Routine 10/07/2024 10:00 AM EST ORAL HYGIENE INSTRUCTIONS Routine 10/07/2024 10:00 AM EST PROPHYLAXIS - ADULT Routine 10/07/2024 1 0:00 AM EST CRYOTHERAPY SKIN LESION Routine 09/03/2024 12:41 PM EST Seborrheic keratosis CT CHEST WO CONTRAST Routine 07/17/2024 7:01 PM EST XR CHEST 1 VIEW Routine 07/17/2024 4:10 PM EST VENOUS BLOOD GAS Routine 07/17/2024 3:30 PM EST BI MAMMOGRAM SCREENING TOMOSYNTHESIS BILATERAL Routine 06/27/2024 3:41 PM EST LAB COLOGUARD?? COLON CANCER SCREEN Routine 06/12/2024 12:30 PM EDT Encounter for screening for malignant neoplasm of colon BITEWINGS - 2 RADIOGRAPHIC IMAGES Routine 04/04/2024 2:00 PM EDT LIPID PANEL, STANDARD Routine 09/29/2023 11:51 AM EST Benign hypertension from Last 3 Months or Most Recently Relevant to Health Maintenance Results * Basic Metabolic Panel (10/14/2024 4:27 PM EST) Sodium 138 135 - 145 mmol/L [facility] Potassium 4.4 3.3 - 5.1 mmol/L [facility] Chloride 103 96 - 108 mmol/L [facility] Carbon Dioxide 26 22 - 29 mmol/L [facility] Anion Gap 13 12 - 20 [facility] Urea Nitrogen (BUN) 15 9 - 16 mg/dL [facility] Creatinine, Serum 1.02 0.5 - 1.4 mg/dL [facility] Estimated Glomerular Filt Rate 53 [facility] Comment:Chronic Kidney Disea se: Estimated GFR < 60 mL/min/1.64r1Pkoglr Kidney Disease: Estimated GFR < 15 mL/min/1.73m2 Glucose 104 60 - 115 mg/dL [facility] Calcium 10.2 8.4 - 10.2 mg/dL [facility] Blood Venous blood specimen / Unknown 10/14/2024 4:27 PM EST 10/14/2024 4:27 PM EST us Sebastián Hunt MD LAB BLOOD ORDERABLES Final Resul t [facility] [address] [place] [address] [phone] * Cryotherapy, skin lesion (09/03/2024 12:41 PM EST) Narrative Killian Rodriguez MD - 09/03/2024 12:41 PM EST Killian Rodriguez MD ? 09/03/2024 12:43 PM Cryotherapy, skin lesion Date/Time: 09/03/2024 12:41 PM Performed by: Killian Rodriguez MD Authorized by: Killian Rodriguez MD ?? Consent: ??Consent obtained: ??Written ??Consent given by: ??Patient ??Procedure risks and benefits discussed: Yes ?Patient questions answered: No ?Patient agrees, verbalizes understanding, and wants to proceed: No ?Educational handouts given: No ?Instructions and paperwork completed: Yes ?? Isabella protocol: ??Procedure explained and questions answered to patient or proxy's satisfaction: yes ?Relevant documents present and verified: no ?Test results available: no ?Imaging studies available: no ?Required blood products, implants, devices, and special equipment available: no ?Site/side marked: no ?Immediately prior to procedure, a time out was called: yes ?Patient identity confirmed: ??Verbally with patient Sedation: ??Sedation type: ??None Procedure specific details: ?? Cryotherapy as per protocol performed. Post-procedure details: ??Procedure completion: ??Tolerated well, no immediate complications us Killian Rodriguez MD DERM PROCEDURE ORDERABLES F inal Result * CT Chest w/o Contrast (07/17/2024 7:01 PM EST) Anatomical Region Laterality Modality Body, Chest Computed Tomogra phy 07/17/2024 7:01 PM EST Narrative 07/17/2024 7:50 PM EST ? [facility] ?[address] ?[place] [address] ? CT Scan Report ? Signed ? Patient: Juana Lopez ?MR#: [id number] ?? 32 ? : 1955 ?Acct:[id number] ? Age/Sex: 68 / F ?ADM Date: 07/17/24 ? Loc: [facility] ?[facility]-6 ? Attending Dr: Francisco Salgado MD ? Ordering Physician: Francisco Salgado MD ?? Date of Service: 07/17/24 ?? Procedure(s): CT chest wo IV con ?? Accession Number(s): [id number] ? cc: Francisco Salgado MD; Anne Caballero MD ? EXAMINATION: ?? CT CHEST WITHOUT CONTRAST ? CLINICAL INFORMATION: ?? Shortness of breath, cough ? COMPARISON: ?? 03/01/2024 ? TECHNIQUE: ?? Multidetector volumetric CT imaging of the chest was done. Axial MIP ?? volume rendering provided. Sagittal and coronal reformatted images were ?? obtained. ? This CT examination was performed using dose optimization techniques as ?? appropriate, variously including the following: ?? *Automated exposure control ?? *Adjustment of mA and/or kV according to patient size (this includes ?? techniques or standardized protocols for targeted exams where dose is ?? matched to indication/reason for exam; i.e. extremities or head) ?? *Use of iterative reconstruction technique ? DLP: ?? 186 mGy-cm ? FINDINGS: ? LUNGS: Redemonstration of bronchial wall thickening, with multiple ?? waxing and waning ??mucoid impacted bronchi and mild bronchiectasis. ? PLEURA: No pleural effusion. ? MEDIASTINUM: ??No cardiomegaly. Aorta and pulmonary artery are normal in ?? caliber. No mediastinal adenopathy. ??Lack of IV contrast limits ?? evaluation for hilar adenopathy. ? CORONARY ARTERY CALCIFICATION: No coronary artery calcification ?? appreciated. ? CHEST WALL/AXILLA: No axillary or internal mammary lymphadenopathy. ? UPPER ABDOMEN: Benign-appearing hepatic cysts are again noted. ?? Nonobstructing left renal stone. ? OSSEOUS STRUCTURES: Degenerative changes of the spine. ? CT/CT chest wo IV con ?? IMPRESSION: ?? Redemonstration of bronchial wall thickening, with multiple waxing and ?? waning mucoid impacted bronchi and mild bronchiectasis. Differential ?? considerations include atypical mycobacterium infection. ? Electronically signed by: ??Sara Villafana MD ??07/17/2024 07:46 PM EST RP ? Dictated By: ?Sara Villafana MD ? Signed By: ?<Electronically signed by Sara Villafana MD in OV> ? 07/17/24 1946 ? DD/ 190 ? TD/TT: 07/17/24 190 ? Certified Professional Controller: ? Procedure Note Robbin, Image - 07/17/[address] [address] [address] Scan Report Signed Patient: Fabian Lopez#: [id number] 32 : 4Acct:[id number] Age/Sex: 68 / FADM Date: 07/17/24 Loc: [facility] Attending Dr: Francisco Salgado MD Ordering Physician: Francisco Salgado MD Date of Service: 07/17/24 Procedure(s): CT chest wo IV con Accession Number(s): [id number] cc: Francisco Salgado MD; Anne Caballero MD EXAMINATION: CT CHEST WITHOUT CONTRAST CLINICAL INFORMATION: Shortness of breath, cough COMPARISON: 03/01/2024 TECHNIQUE: Multidetector volumetric CT imaging of the chest was done. Axial MIP volume rendering provided. Sagittal and coronal reformatted images were obtained. This CT examination was performed using dose optimization techniques as appropriate, variously including the following: *Automated exposure control *Adjustment of mA and/or kV according to patient size (this includes techniques or standardized protocols for targeted exams where dose is matched to indication/reason for exam; i.e. extremities or head) *Use of iterative reconstruction technique DLP: 186 mGy-cm FINDINGS: LUNGS: Redemonstration of bronchial wall thickening, with multiple waxing and waning mucoid impacted bronchi and mild bronchiectasis. PLEURA: No pleural effusion. MEDIASTINUM: No cardiomegaly. Aorta and pulmonary artery are normal in caliber. No mediastinal adenopathy. Lack of IV contrast limits evaluation for hilar adenopathy. CORONARY ARTERY CALCIFICATION: No coronary artery calcification appreciated. CHEST WALL/AXILLA: No axillary or internal mammary lymphadenopathy. UPPER ABDOMEN: Benign-appearing hepatic cysts are again noted. Nonobstructing left renal stone. OSSEOUS STRUCTURES: Degenerative changes of the spine. CT/CT chest wo IV con IMPRESSION: Redemonstration of bronchial wall thickening, with multiple waxing and waning mucoid impacted bronchi and mild bronchiectasis. Differential considerations include atypical mycobacterium infection. Electronically signed by: Sara Villafana MD 07/17/2024 07:46 PM EST Dictated By: Sara Villafana MD Signed By: <Electronically signed by Sara Villafana MD in OV> 07/17/241945 DD/ 00 TD/TT: 07/17/241900 Certified Professional Controller: [facility] External Provider IMG CT PROCEDURES Final Result * XR Chest 1 View (07/17/2024 4:10 PM EST) Anatomical Region Laterality Modality Chest Radiographic Roxana ging 07/17/2024 4:10 PM EST Narrative 07/17/2024 4:51 PM EST ? [facility] ?[address] ?[place] [address] ?XRay Report ? Signed ? Patient: Jessica,Juana ?MR#: [id number] ?? 32 ? : 1955 ?Acct:[id number] ? Age/Sex: 68 / F ?ADM Date: 07/17/24 ? Loc: HO.ED ? Attending Dr: ? Ordering Physician: Bhavin Pacheco MD ?? Date of Service: 07/17/24 ?? Procedure(s): XR chest 1V ?? Accession Number(s): [id number] ? cc: Bhavin Pacheco MD; Anne Caballero MD ? EXAMINATION: ?? XR CHEST ? CLINICAL INFORMATION: ?? fever, cough ? COMPARISON: ?? None available. ? TECHNIQUE: ?? Portable AP view of the chest was obtained. ? FINDINGS: ? The study is limited by portable technique. ? No gross consolidation, effusion, or pneumothorax is seen. If clinical ?? suspicion persists, repeat standing upright PA and lateral views of the ?? chest in full inspiration may be of use for further evaluation. ? Bilateral nipple shadows. The heart appears normal in size. The ?? mediastinum, diaphragm, bones, and soft tissues appear unremarkable. ? XR/XR chest 1V ?? IMPRESSION: ? Findings as above. ? Electronically signed by: ??Edi Lawrence MD ??07/17/2024 04:49 PM EST RP ? Dictated By: ?Howard,Edi ? Signed By: ?<Electronically signed by Edi Lawrence in OV> ?07/17/24 1649 ? DD/ 1610 ? TD/TT: 07/17/24 1620 ? Certified Professional Controller: ? Procedure Note Jomar Siegel - 07/17/2024 [facility] [address] [facility] [place] [address] XRay Report Signed Patient: Fabian Lopez#: [id number] 32 : 1955cct:[id number] Age/Sex: 68 / FADM Date: 07/17/24 Loc: HO.ED Attending Dr: Ordering Physician: Bhavin Pacheco MD Date of Service: 07/17/24 Procedure(s): XR chest 1V Accession Number(s): [id number] cc: Bhavin Pacheco MD; Anne Caballero MD EXAMINATION: XR CHEST CLINICAL INFORMATION: fever, cough COMPARISON: None available. TECHNIQUE: Portable AP view of the chest was obtained. FINDINGS: The study is limited by portable technique. No gross consolidation, effusion, or pneumothorax is seen. If clinical suspicion persists, repeat standing upright PA and lateral views of the chest in full inspiration may be of use for further evaluation. Bilateral nipple shadows. The heart appears normal in size. The mediastinum, diaphragm, bones, and soft tissues appear unremarkable. XR/XR chest 1V IMPRESSION: Findings as above. Electronically signed by: Edi Lawrence MD 07/17/2024 04:49 PM EST Dictated By: Edi Lawrence Signed By: <Electronically signed by Edi Lawrence in OV> 07/17/24 1649 DD/ 1610 TD/TT: 07/17/24 1620 Certified Professional Controller: [facility] External Provider IMG XR PROCEDURES Final Result * (ABNORMAL) VENOUS BLOOD GAS (07/17/2024 3:30 PM EST) VBG pH 7.42 7.32 - 7.43 [facility] Comment:METER #: [id number] additional_comment: [employer]alucks VBG PCO2 41 mmHg [facility] Comment:METER #: [id number] additional_comment: [employer] VBG PO2 36 mmHg [facility] Comment:METER #: [id number] additional_comment: [employer]alucks VBG Base Excess 2.6 mmol/L [facility] Comment:METER #: [id number] additional_comment: [employer]alucks VBG HCO3 27(H) 22 - 26 mmol/L [facility] Comment:METER #: [id number] additional_comment: Godwin O2 Sat, David 59.0 % [facility] Comment:METER #: [id number] additional_comment: Godwin 07/17/2024 3:30 PM EST 07/17/2024 3:34 PM EST us Generic External Data Provider LAB BLOOD ORDERAB LES Final Result Performing Organization Address City/State/[facility] Co de Phone Number [facility] [address] [facility] [place] [place] [address] [phone] * BI Mammogram Screening Tomosynthesis Bilateral (06/27/2024 3:41 PM EST) Anatomical Region Laterality Modality Breast Bilateral Mammography 06/27/2024 3:41 PM EST Narrative 07/05/2024 12:50 PM EST ? [facility] ? [address] ?[place] [address] ? Mammography Report ? Signed ? Patient: Jessica,Juana ?MR#: [id number] ?? 32 ? : 1955 ?Acct:[id number] ? Age/Sex: 68 / F ?ADM Date: 11/14/24 ? Loc: HO.MAMMO ? Attending Dr: Anne S Ada MD ? Ordering Physician: Ada,Anne S MD ?Results: 1Negati ?? ve ? Date of Service: 14/24 ?Follow Up: 1 Year From Orig ?? inal Mammogram ? Procedure(s): MM tomosynthesis screening BI ?? Accession Number(s): [id number] ? cc: Anne Caballero MD ? EXAMINATION: ?? MM SCREENING DIGITAL BREAST TOMOSYNTHESIS, BILATERAL ? CLINICAL INFORMATION: ? Screening. Asymptomatic. ? COMPARISON: ?? Mammography: Comparison is made with available priors ? TECHNIQUE: ?? Digital breast mammography with tomosynthesis is performed in both the ?? craniocaudal and mediolateral oblique views along with computer-aided ?? detection (CAD). ? FINDINGS: ?? The breasts are heterogeneously dense, which may obscure small masses ?? (ACR BI-RADS breast composition Category c). ? There are no significant masses, abnormal calcifications, or other ?? abnormalities. ? MM/MM tomosynthesis screening BI ?? IMPRESSION: ?? No mammographic evidence of malignancy. ? ASSESSMENT: ? BI-RADS BI-RADS 1 - Negative ? RECOMMENDATION: ?? Routine annual mammography screening. ? 1 year F/U ? This examination should not preclude the clinical evaluation of a ?? suspicious palpable abnormality. ? This patient's information was entered into a reminder system with a ?? target due date for their next mammogram. ? Electronically signed by: ??Celestina Tan DO ??07/05/2024 12:47 PM EST ? Dictated By: ?Celestina Tan DO ? Signed By: ?<Electronically signed by Celestina Tan, DO in OV> ? 07/05/24 1247 ? DD/ 1541 ? TD/TT: 06/27/24 1554 ? Certified Professional Controller: ? Procedure Note Robbin, Jomar - 07/05/2024 [place] [facility] [address] [place], [place] [address] Mammography Report Signed Patient: Ada LopezKaitlin#: [id number] 32 : 4Acct:[id number] Age/Sex: 68 / FADM Date: 06/27/24 Loc: HO.MAMMO Attending Dr: Anne Caballero MD Ordering Physician: Anne Caballero MDResults: 1Negati ve Date of Service: 06/27/24Follow Up: 1 Year From Orig inal Mammogram Procedure(s): MM tomosynthesis screening BI Accession Number(s): [id number] cc: Anne Caballero MD EXAMINATION: MM SCREENING DIGITAL BREAST TOMOSYNTHESIS, BILATERAL CLINICAL INFORMATION: Screening. Asymptomatic. COMPARISON: Mammography: Comparison is made with available priors TECHNIQUE: Digital breast mammography with tomosynthesis is performed in both the craniocaudal and mediolateral oblique views along with computer-aided detection (CAD). FINDINGS: The breasts are heterogeneously dense, which may obscure small masses (ACR BI-RADS breast composition Category c). There are no significant masses, abnormal calcifications, or other abnormalities. MM/MM tomosynthesis screening BI IMPRESSION: No mammographic evidence of malignancy. ASSESSMENT: BI-RADS BI-RADS 1 - Negative RECOMMENDATION: Routine annual mammography screening. 1 year F/U This examination should not preclude the clinical evaluation of a suspicious palpable abnormality. This patient's information was entered into a reminder system with a target due date for their next mammogram. Electronically signed by: Celestina Tan DO 07/05/2024 12:47 PM EST Dictated By: Celestina Tan DO Signed By: <Electronically signed by Celestina Tan DO in OV> 07/05/24 1247 DD/ 1541 TD/TT: 06/27/24 1554 Certified Professional Controller: Anne Caballero MD IMG BI PROCEDURES Final Result * Cologuard?? colon cancer screening (06/12/2024 12:30 PM EDT) Cologuard Result Negative Negative 06/20/20 10:31 AM EST [employer] (CLIA #:[id number]) Comment: NEGATIVE TEST RESULT. A negative Cologuard result indicates a low likelihood that a colorectal cancer (CRC) or advanced adenoma (adenomatous polyps with more advanced pre-malignant features) ??is present. The chance that a person with a negative Cologuard test has a colorectal cancer is less than 1 in 1500 (negative predictive value >99.9%) or has an ??advanced adenoma is less than ??5.3% (negative predictive value 94.7%). These data are based on a prospective cross-sectional study of 10,000 individuals at average risk for colorectal cancer who were screened with both Cologuard and colonoscopy. (Hugo Woodson al, N Engl J Med 2014;370(14):1286- 1297) The normal value (reference range) for this assay is negative. COLOGUARD RE-SCREENING RECOMMENDATION: Periodic colorectal cancer screening is an important part of preventive healthcare for asymptomatic individuals at average risk for colorectal cancer. ??Following a negative Cologuard result, the [place] [employer] and U.S. Multi-Society Task Force screening guidelines recommend a Cologuard re-screening interval of 3 years. References: [place] [employer] Guideline for Colorectal Cancer Screening: https://www.cancer.org/cancer/bzeyz-xqczdt-ohjdov/bdhnavmwd-iwgnmzxuh-vwdwemf/ac s-rec ommendations.html.; Brandon DK, Mark CR, Cathleen GerardK, Colorectal Cancer Screening: Recommendations for Physicians and Patients from the U.S. Multi-Society Task Force on Colorectal Cancer Screening , Am J Gastroenterology 2017; 112:3331-1363. TEST DESCRIPTION: Composite algorithmic analysis of stool DNA-biomarkers with hemoglobin immunoassay. ?? Quantitative values of individual biomarkers are not reportable and are not associated with individual biomarker result reference ranges. Cologuard is intended for colorectal cancer screening of adults of either sex, 45 years or older, who are at average-risk for colorectal cancer (CRC). Cologuard has been approved for use by the U.S. FDA. The performance of Cologuard was established in a cross sectional study of average-risk adults aged 50-84. Cologuard performance in patients ages 45 to 49 years was estimated by sub-group analysis of near-age groups. Colonoscopies performed for a positive result may find as the most clinically significant lesion: colorectal cancer [4.0%], advanced adenoma (including sessile serrated polyps greater than or equal to 1cm diameter) [20%] or non- advanced adenoma [31%]; or no colorectal neoplasia [45%]. These estimates are derived from a prospective cross-sectional screening study of 10,000 individuals at average risk for colorectal cancer who were screened with both Cologuard and colonoscopy. (Hugo Bird, N Engl J Med 2014;370(14):3909-7729.) Cologuard may produce a false negative or false positive result (no colorectal cancer or precancerous polyp present at colonoscopy follow up). A negative Cologuard test result does not guarantee the absence of CRC or advanced adenoma (pre-cancer). The current Cologuard screening interval is every 3 years. ([place] [employer] and U.S. Multi-Society Task Force). Cologuard performance data in a 10,000 patient pivotal study using colonoscopy as the reference method can be accessed at the following location: www.[employer]OOTNIC.COM/results. Additional description of the Cologuard test process, warnings and precautions can be found at www.DormNoiserd.[employer]umio. Stool specimen (specimen) 06/12/2024 12:30 PM EDT 06/14/2024 1:04 PM EDT us Anne Caballero MD LAB MOLECULAR DIAGNOSTICS ORDERA BLES Final Result [employer] (CLIA #:[id number]) [facility] RamirezVA [facility] [place] [address], * (ABNORMAL) Lipid Panel, Standard (09/29/2023 11:51 AM EST) Triglycerides 89 <150 mg/dL [facility] Comment:Desirable Triglyceri de: less than 150 mg/dLBorderline High Triglyceride 150-199 mg/dLHigh Triglyceride: 200-499 mg/dLVery High Triglyceride: greater than or equal to 5OO mg/dL Cholesterol 203(H) <200 mg/dL [facility] Comment:Desirable Cholestero l: less than 200 mg/dLBorderline High Cholesterol: 200-239 mg/dLHigh Cholesterol: greater than 239 mg/dL LDL Cholesterol Calculated 114(H) <100 mg/dL [facility] Comment:Desirable LDL: less than 100 mg/dLNear Optimal/Above Optimal LDL: 110- 129 mg/dLBorderline High LDL: 130-159 mg/dLHigh LDL: 160-189 mg/dLVery High LDL: greater than or equal to 190 mg/dL HDL Cholesterol 72 >40 mg/dL [facility] Comment:Desirable HDL: great er than 40 mg/dL Note: This HDL assay may give artificially low results in patients with liver disease. Blood Venous blood specimen / Unknown 09/29/2023 11:51 AM EST 09/29/2023 1:17 PM EST us Anne Caballero MD LAB BLOOD ORDERABLES Final Resul t [facility] [address] [place] [address] [phone] from Last 3 Months or Most Recently Relevant to Health Maintenance Insurance [address] [place] [address] [facility] Care Teams Operations And Intelligence Assistant Relationship Specialty Start Date End Date Anne Caballero MD [address] [place] [id number] PCP - General Family Medicine 07/30/12
--- OUTSIDE RECORDS SUMMARY | 2024-10-14 18:52 | XMS_ITS | Encounter Summary ---
Author Organization [employer] Address [address] [place] [address] [address] [place] [address] Care Team Providers Care Aging Room Hand Name Role Phone Anne Caballero MD Primary Care Provider [phone] Encounter Details Date Type Department Care Team ([facility] Contact Info) Description 12/30/2022 Orders Only [facility] MED & PEDS [address] [place] [address] Shruti Piña LPN Social History Tobacco Use Types Packs/Day Years Used Date Smoking Tobacco: Every Day Cigarettes Depression Answer Date Recorded Patient Health Questionnaire-9 Score 4 10/20/2022 Depression Answer Date Recorded Patient Health Questionnaire-2 Score 0 10/20/2022 Comments Unknown Sex and Gender Information Value Date Recorded Sex Assigned at Female 06/13/2022 10:17 AM EDT Legal Sex Female 10:17 AM EDT Gender Identity Female 06/13/2022 10:17 AM EDT Sexual Orientation Choose not to disclose 2021 10:17 AM EDT COVID-19 Exposure Response Date Recorded In the last 10 days, have yo u been in contact with someone who was confirmed or suspected to have Coronavirus/COVID-19? No / Unsure 12/14/2022 1:01 PM EDT documented as of this encounter Plan of Treatment Upcoming Encounters Date Type Department Care Team (Late Contact Info) Description 04/15/2025 10:00 AM EDT Office Visit [facility] ADULT DENTAL [address] [place] [address] Eddie Rodriguez documented as of this encounter Visit Diagnoses Not on filedocumented in this encounter Additional Health Concerns Assessment Noted Time PHQ-9 Depression Total Score: 4 10/21/19 23 9:37 AM EST documented as of this encounter Care Teams Aging Room Hand Relationship Specialty Start Date End Date Anne Caballero MD [address] [place] [id number] PCP - General Family Medicine 07/30/12 documented as of this encounter
--- OUTSIDE RECORDS SUMMARY | 2024-10-14 18:52 | XMS_ITS | Encounter Summary ---
Author Organization [employer] Address [address] [place] [address] [address] [place] [address] Care Team Providers Care Adapted Physical Education Specialist Name Role Phone Anne Caballero MD Primary Care Provider [phone] Encounter Details Date Type Department Care Team (Late st Contact Info) Description 09/08/2022 Orders Only [facility] MED & PEDS [address] [place] [address] Laieny Lee LPN Social History Tobacco Use Types Packs/Day Years Used Date Smoking Tobacco: Every Day Cigarettes Comments Unknown Sex and Gender Information Value [...] suspected to have Coronavirus/COVID-19? No / Unsure 08/12/2022 12:58 PM EST documented as of this encounter Plan of Treatment Upcoming Encounters Date Type Department Care Team (Late Contact Info) Description 04/15/2025 10:00 AM EDT Office Visit [facility] ADULT DENTAL [address] [place] [address] Eddie Rodriguez documented as of this encounter Visit Diagnoses Not on filedocumented in this encounter Care Teams Adapted Physical Education Specialist Relationship Specialty Start Date End Date Anne Caballero MD [address] [place] [address] [place] [address] PCP - General Family Medicine 07/30/12 documented as of this encounter
--- OUTSIDE RECORDS SUMMARY | 2024-10-14 18:52 | XMS_ITS | Encounter Summary ---
Author Organization [employer] Address [address] [place] [address] [address] [place] [address] Care Team Providers Care Ticket Maker Name Role Phone Anne Caballero MD Primary Care Provider [phone] Reason for Visit * Reason Comments Med Refill Encounter Details Date Type Department Care Team ([facility] Contact Info) Description 01/30/2023 Refill [facility] MED & PEDS [address] [place], [place] [phone] Anne Caballero MD [address] [place] [address] Social History Tobacco Use Types Packs/Day Years Used Date Smoking Tobacco: Every Day Cigarettes Smokeless Tobacco: Never Alcohol Use Standard [...] suspected to have Coronavirus/COVID-19? No / Unsure 02/02/2023 10:29 AM EDT documented as of this encounter Plan of Treatment Upcoming Encounters Date Type Department Care Team (Late st Contact Info) Description 04/15/2025 10:00 AM EDT Office Visit [facility] ADULT DENTAL [address] [place] [address] Eddie Rodriguez documented as of this encounter Visit Diagnoses Not on filedocumented in this encounter Additional Health Concerns Assessment Noted Time PHQ-9 Depression Total Score: 4 10/21/19 23 9:37 AM EST documented as of this encounter Care Teams Ticket Maker Relationship Specialty Start Date End Date Anne Caballero MD [address] [place] [id number] PCP - General Family Medicine 07/30/12 documented as of this encounter
--- OUTSIDE RECORDS SUMMARY | 2024-10-14 18:52 | XMS_ITS | Encounter Summary ---
Author Organization [employer] Address [address] [place] [address] [address] [place] [address] Care Team Providers Care Materials Recycler Name Role Phone Anne Caballero MD Primary Care Provider [phone] Encounter Details Date Type Department Care Team (Latest Contact Info) Description 11/13/2018 Abstract [facility] CONVERSIONS Dental, Provider, DDS Social History Tobacco Use Types Packs/Day Years Used Date Smoking Tobacco: Never Assessed Comments Unknown Sex and Gender Information Value [...] Description 04/15/2025 10:00 AM EDT Office Visit [facility] ADULT DENTAL [address] [place] [address] Eddie Rodriguez documented as of this encounter Visit Diagnoses Not on filedocumented in this encounter Care Teams Materials Recycler Relationship Specialty Start Date End Date Anne Caballero MD [address] [place] [address] PCP - General Family Medicine 07/30/12 documented as of this encounter
--- OUTSIDE RECORDS SUMMARY | 2024-10-14 18:52 | XMS_ITS | Clinical Summary ---
Author Organization [facility] Address [address] [facility] [address] [place] [address] Phone Care Team Providers Care Assistant Store Leader Name Role Phone Anne Caballero MD Primary Care Provider [phone] Allergies No known active allergies Medications amitriptyline (ELAVIL) 25 MG tablet Take 25 mg by mouth every night Active acetaminophen (TYLENOL) 500 MG tablet Take 1,000 mg by mouth every 8 (eight) hours if needed for mild pain Active omeprazole (PriLOSEC) [address] capsule Take 20 mg by mouth 1 (one) time each day Do not crush or chew. Active nicotine (NICODERM CQ) 7 MG/24HR Place 1 patch on the skin 1 (one) time each day at the same time Active fluticasone (FLONASE) 50 MCG/ACT nasal spray Administer 1 spray into each nostril 1 (one) time each day Active loratadine (CLARITIN) 10 MG tablet Take 10 mg by mouth 1 (one) time each day Active albuterol 1.25 MG/3ML nebulizer solution Take 2.5 mg by nebulization every 6 (six) hours if needed for wheezing Active Fluticasone Furoate-Vilante rol 200-25 MCG/INH aerosol powder Inhale 1 puff 1 (one) time each day Active hydrOXYzine (ATARAX) 10 MG tablet Take 10 mg by mouth if needed for itching Active Calcium Carbonate-Vitam in D3 600-400 MG-UNIT tablet Take 1 tablet by mouth 1 (one) time each day Active simvastatin (ZOCOR) 10 MG tablet Take 10 mg by mouth every night Active amLODIPine (NORVASC) 5 MG tablet Take 5 mg by mouth 1 (one) time each day Active Active Problems Problem Noted Date Diagnosed Date Hypo-osmolality and hyponatremia 06/01/2022 Hypertensive disorder 03/21/2022 Mass of left ovary 03/21/2022 Migraine 03/21/2022 Resolved Problems Problem Noted Date Diagnosed Date Resolved Date Chronic kidney disease, stage 2 (mild) 03/22/2022 06/01/2022 Acute exacerbation of chroni c obstructive pulmonary disease 03/21/2022 03/22/2022 Surgical follow-up 03/21/2022 Viral hepatitis C 03/21/2022 03/22/2022 Immunizations Name Administration Dates Next Due Influenza, Unspecified 06/17/2020,2017,08/22/2017,05/16/2016, 5,05/05/2014 Moderna SARS-COV-2 11/10/2020,10/08/2020 Shingrix 12/20/2021 Tdap 03/06/2014 Zoster 03/09/2016 Social History Tobacco Use Types Packs/Day Years Used Date Smoking Tobacco: Former Cigarettes Smokeless Tobacco: Never Tobacco Cessation:Counseling Given: Not Answered Alcohol Use Standard Drinks/Week Comments Not Currently 0 (1 standard drink = 0.6 oz pur e alcohol) Comments Unknown Sex and Gender Information Value Date Recorded Sex Assigned at Not on file Legal Sex Female 8:54 AM EDT Gender Identity Not on file Sexual Orientation Not on file Last Filed Vital Signs Vital Sign Reading Time Taken Comments Blood Pressure 100/79 06/01/2022 11:24 AM EDT Pulse 87 06/01/2022 11:24 AM EDT Temperature - - Respiratory Rate - - Oxygen Saturation 96% 06/01/2022 11:24 AM EDT Inhaled Oxygen Concentration - - Weight 58.1 kg (128 lb) 06/01/2022 11:24 AM EDT Height - - Body Mass Index - - Plan of Treatment Health Maintenance Due Date Last Done Comments Breast Cancer Screening 1955 Pneumococcal Vaccine: 65+ Years (1 of 2 - PCV) 1961 Colorectal Cancer Screening: Annual FOBT 2002 Colorectal Cancer Screening: Colonoscopy 2002 Colorectal Cancer Screening: Sigmoidoscopy 2002 Influenza Vaccine (#1) 2024 0, 07/06/2018, 08/22/2017, Additional history exists Hepatitis B Vaccine Aged Out No longe r eligible based on patient's age to complete this topic Insurance [id number] ONE CARE DUAL SNP ([id number]) [facility] ONE CARE DUAL SNP ([id number]) Care Teams Assistant Store Leader Relationship Specialty Start Date End Date Anne Caballero MD [address] [place] [id number] PCP - General Family Medicine 02/21/22
--- OUTSIDE RECORDS SUMMARY | 2024-10-14 18:52 | XMS_ITS | Encounter Summary ---
Author Organization [employer] Address [address] [facility] [address] [facility] [address] [place] [address] Care Team Providers Care Student Liaison Officer Name Role Phone Anne Caballero MD Primary Care Provider [phone] Reason for Visit * Reason Onset Date Comments FYI 12/11/2023 Encounter Details Date Type Department Care Team ([facility] st Contact Info) Description 12/11/2023 Telephone [facility] MEDICINE [address] [place] [address] Anne Caballero MD [address] [place], [place] [phone] FYI Social History Tobacco Use Types Packs/Day [...] housing situation today? I have paulino kong 06/01/[address] you li ve. Do you have problems with any of the following? None of the above 06/01/2023 Food Insecurity Answer Date Recorded Within the past 12 months, y ou worried that your food would run out before you got money to buy more: Never True 06/01/2023 Within the past 12 months,th e food you bought just didn't last and you didn't have enough money to get more: Never True Transportation Answer Date Recorded In the past 12 months, has l ack of transportation kept you from medical appts, meetings, work or from getting things needed for daily living? No 06/01/2023 Utilities Answer Date Recorded In the past 12 months, has t he electric, gas, oil or water company threatened to shut off services in your home? No 06/01/2023 Depression Answer Date Recorded Patient Health Questionnaire-2 [...] Telephone Encounter - Cristopher Dupont RN - 12/11/2023 3:31 PM EDT Please see FYI below. * Telephone Encounter - Tian Cortes - 12/11/2023 3:26 PM EDT Tc from [facility] at [facility] calling to inform the Provider the patient was discharged from Legal Care on 11/28 documented in this encounter Plan of Treatment Upcoming Encounters Date Type Department Care Team (Late st Contact Info) Description 04/15/2025 10:00 AM EDT Office Visit [facility] ADULT DENTAL [address] [place] [address] Eddie Rodriguez documented as of this encounter Visit Diagnoses Not on filedocumented in this encounter Additional Health Concerns Assessment Noted Time PHQ-9 Depression Total Score: 4 10/21/19 23 9:37 AM EST documented as of this encounter Care Teams Student Liaison Officer Relationship Specialty Start Date End Date Anne Caballero MD [address] [place] [id number] PCP - General Family Medicine 07/30/12 documented as of this encounter
--- OUTSIDE RECORDS SUMMARY | 2024-10-14 18:52 | XMS_ITS | Encounter Summary ---
Author Organization [employer] Address [address] [place] [address] [address] [place] [address] Care Team Providers Care Salesperson Handbags Name Role Phone Anne Caballero MD Primary Care Provider [phone] Reason for Visit * Reason Comments Med Refill Encounter Details Date Type Department Care Team ([facility] Contact Info) Description 11/03/2022 Refill [facility] MED & PEDS [address] [place], [place] [phone] Anne Caballero MD [address] [place] [address] Chronic obstructive pulmonary disease, unspecified COPD type (CMS/HCC) Social History Tobacco Use Types Packs/Day Years [...] suspected to have Coronavirus/COVID-19? No / Unsure 10/19/2022 12:59 PM EST documented as of this encounter Plan of Treatment Upcoming Encounters Date Type Department Care Team ([facility] Contact Info) Description 04/15/2025 10:00 AM EDT Office Visit [facility] ADULT DENTAL [address] [place] [address] Eddie Rodriguez documented as of this encounter Visit Diagnoses Diagnosis Chronic obstructive pulmonary disease, unspecified COPD type (CMS/HCC) documented in this encounter Additional Health Concerns Assessment Noted Time PHQ-9 Depression Total Score: 4 10/21/19 23 9:37 AM EST documented as of this encounter Care Teams Salesperson Handbags Relationship Specialty Start Date End Date Anne Caballero MD [address] [place] [phone] PCP - General Family Medicine 07/30/12 documented as of this encounter
--- OUTSIDE RECORDS SUMMARY | 2024-10-14 18:52 | XMS_ITS | Encounter Summary ---
Author Organization [employer] Address [address] [place] [address] 7t [place] [address] Care Team Providers Care Tire Groover Name Role Phone Anne Caballero MD Primary Care Provider [phone] Reason for Referral * Imaging (Routine) - Authorized Specialty Diagnoses / Procedures Referred By Contac t Referred To Contact Radiology Diagnoses Posterior chest pain Chronic right shoulder pain Procedures US Abdomen Limited Sebastián Hunt MD [address] [place] [address] Phone: tel: fax: [address] Phone: tel: fax: Referral ID Status Reason Start Date Expiration Date V isits Requested Visits Authorized [id number] Authorized 10/14/2024 10/14/2025 1 1 Reason for Visit * Reason Comments Shoulder Pain Right side, pain and itchiness Encounter Details Date Type Department Care Team (Late st Contact Info) Description 10/14/2024 3:00 PM EST Office Visit [facility] [address] [place] [address] [phone] Sebastián Hunt MD [address] [place] [address] [phone] Posterior chest pain (Primary Dx); Chronic right shoulder pain Social History Tobacco Use Types Packs/Day Years [...] (124 lb) 10/14/2024 2:55 PM EST Height - - Body Mass Index 20.91 09/03/2024 11:09 AM EST documented in this encounter Progress Notes * Sebastián Hunt MD - 10/14/2024 3:00 PM EST Images from the original note were not included. Subjective Patient ID: Juana Lopez is a 69 y.o. female. 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 HPI Juana had onset > 1 month ago of painful, itchy sensation at right upper back near upper lateral scapula, nothing makes it better or worse. No change of pain with changing positions, movement ofthe right upper extremity, or inspiration. Heat helps transiently. Has not tried ice. Has not tried analgesic meds. No fever, chills, change in smoker's cough . No shortness of breath. States that baseline home O2 sats are 94 to 95%. Never had similar sx. Lives alone. Smokes 6 cigarettes/day. Had NRT. Patient Active Problem List Diagnosis Benign hypertension Hyperlipidemia COPD (chronic obstructive pulmonary disease) (CMS/HCC) Hyperthyroidism Chronic hepatitis C (CMS/HCC) Anxiety Muscle tightness The following portions of the chart were reviewed this encounter and updated as appropriate: Tobacco Allergies Meds Problems Med Hx Surg Hx Fam Hx Review of Systems Constitutional: Negative for fever. Respiratory: Negative for shortness of breath. Cardiovascular: Positive for chest pain. Gastrointestinal: Negative for abdominal pain. Musculoskeletal: Positive for back pain. Skin: Negative for rash. Neurological: Negative for headaches. Objective Physical Exam Constitutional: Appearance: Normal appearance. HENT: Right Ear: Tympanic membrane, ear canal and external ear normal. Left Ear: Tympanic membrane, ear canal and external ear normal. Nose: Nose normal. Mouth/Throat: Mouth: Mucous membranes are moist. Pharynx: Oropharynx is clear. Eyes: Conjunctiva/sclera: Conjunctivae normal. Pupils: Pupils are equal, round, and reactive to light. Cardiovascular: Rate and Rhythm: Normal rate and regular rhythm. Heart sounds: No murmur heard. Pulmonary: Effort: Pulmonary effort is normal. Breath sounds: Normal breath sounds. Musculoskeletal: General: Normal range of motion. Arms: Cervical back: No tenderness. Comments: There is moderate tenderness to palpation over the right upper back overlying scapula as noted above. No rash. Skin: Findings: No rash. Neurological: Mental Status: She is alert. Gait: Gait is intact. Psychiatric: Mood and Affect: Mood normal. Behavior: Behavior normal. Procedures Assessment/Plan Diagnoses and all orders for this visit: Posterior chest pain ? Etiology. Chest x-ray, D-dimer ordered. Will call patient with results. Prescribed acetaminophen, ibuprofen, tizanidine. Advised to try heat and ice. She has lidocaine patches at home which she was advised to try. If x-ray and lab test results are negative and pain persists, will consider referral to physical therapy. Return to clinic if not improving. - XR Chest 2 Views; Future - Basic Metabolic Panel; Future - D-Dimer, Quantitative; Future Other orders - acetaminophen (Tylenol) 500 MG tablet; Take 2 tablets (1,000 mg) by mouth every 6 (six) hours if needed for moderate pain or fever for up to 25 doses. - ibuprofen 400 MG tablet; Take 1 tablet (400 mg) by mouth every 6 (six) hours if needed for moderate pain or fever for up to 30 doses. - tiZANidine (Zanaflex) 2 MG tablet; Take 1 tablet (2 mg) by mouth every 6 (six) hours if needed for muscle spasms for up to 10 days. * Pia Berger RN - 10/14/2024 3:00 PM EST Incoming TC from Kenyatta at [facility] Radiology regarding message below. Per Kenyatta, nps, on CT can only see to adrenal gland unless gallbladder is sitting on adrenal gland. RN verbally informed Dr. Hunt. TC placed to [facility] Radiology per verbal request per Dr. Hunt regarding if Radiology can review recentCT chest done at [facility] and visualize/findings gallbladder. RN verbally spoke with Maria C, whom reports message would be sent regarding this request. This RN provided [facility] Radiology department with [facility]'s direct extension. RN will verbally inform Dr. Hunt. documented in this encounter Plan of Treatment Upcoming Encounters Date Type Department Care Team (Late st Contact Info) Description 04/15/2025 10:00 AM EDT Office Visit [facility] [address] [place] [address] Eddie Rodriguez Scheduled Orders Name Type Priority Associated Diagnoses Orde r Schedule XR Chest 2 Views Imaging Routine Posterior chest pain Expected: 10/14/2024, Expires: 10/14/2025 D-Dimer, Quantitative Lab Routine Posterior chest pain Expected: 10/14/2024 (Approximate), Expires: 10/14/2025 US Abdomen Limited Imaging Routine Posterior chest pain Chronic right shoulder pain Expected: 10/14/2024, Expires: 10/14/2025 documented as of this encounter Procedures Procedure Name Priority Date/Time Associated Diagnosis Comments BASIC METABOLIC PANEL Routine 10/14/2024 4:27 PM EST Posterior chest pain documented in this encounter Results * Basic Metabolic Panel (10/14/2024 4:27 PM EST) Sodium 138 135 - 145 mmol/L [facility] Potassium 4.4 3.3 - 5.1 mmol/L [facility] Chloride 103 96 - 108 mmol/L [facility] Carbon Dioxide 26 22 - 29 mmol/L [facility] Anion Gap 13 12 - 20 [facility] Urea Nitrogen (BUN) 15 9 - 16 mg/dL [facility] Creatinine, Serum 1.02 0.5 - 1.4 mg/dL [facility] Estimated Glomerular Filt Rate 53 [facility] Comment:Chronic Kidney Disea se: Estimated GFR < 60 mL/min/[id number] Kidney Disease: Estimated GFR < 15 mL/min/1.73m2 Glucose 104 60 - 115 mg/dL [facility] Calcium 10.2 8.4 - 10.2 mg/dL [facility] Blood Venous blood specimen / Unknown 10/14/2024 4:27 PM EST 10/14/2024 4:27 PM EST us Sebastián Hunt MD LAB BLOOD ORDERABLES Final Resul t [facility] [address] [place] [address] [phone] documented in this encounter Visit Diagnoses Diagnosis Posterior chest pain- Primary Chronic right shoulder pain Pain in joint, shoulder region documented in this encounter Additional Health Concerns Assessment Noted Time PHQ-9 Depression Total Score: 4 10/21/19 23 9:37 AM EST documented as of this encounter Care Teams Tire Groover Relationship Specialty Start Date End Date Anne Caballero MD [address] [place] [address] PCP - General Family Medicine 07/30/12 documented as of this encounter
--- OUTSIDE RECORDS SUMMARY | 2024-10-14 18:52 | XMS_ITS | Encounter Summary ---
Author Organization [employer] Address [address] [facility] 7t [place] [address] Care Team Providers Care Ripsawyer Name Role Phone Anne Caballero MD Primary Care Provider [phone] Encounter Details Date Type Department Care Team ([facility] [address] Contact Info) Description 01/27/[address] [facility] [address] [place], [place] [phone] Anne Caballero MD [address] [place] [address] Social History Tobacco Use Types Packs/Day Years [...] suspected to have Coronavirus/COVID-19? No / Unsure 01/25/2023 9:57 AM EDT documented as of this encounter Plan of Treatment Upcoming Encounters Date Type Department Care Team (Late Contact Info) Description 04/15/2025 10:00 AM EDT Office Visit [facility] [address] [place] [address] Eddie Rodriguez documented as of this encounter Visit Diagnoses Not on filedocumented in this encounter Additional Health Concerns Assessment Noted Time PHQ-9 Depression Total Score: 4 10/21/19 23 9:37 AM EST documented as of this encounter Care Teams Ripsawyer Relationship Specialty Start Date End Date Anne Caballero MD [address] [place] [address] PCP - General Family Medicine 07/30/12 documented as of this encounter
--- OUTSIDE RECORDS SUMMARY | 2024-10-14 18:52 | XMS_ITS | Encounter Summary ---
Author Organization [employer] Address [address] [place] [address] 7t [place] [address] Care Team Providers Care Emt/Dispatcher Name Role Phone Anne Caballero MD Primary Care Provider [phone] Encounter Details Date Type Department Care Team (Late st Contact Info) Description 07/29/2022 Orders Only [facility] [address] [place], [place] [phone] Hannah Beregr LPN Social History Tobacco Use Types Packs/Day [...] Description 04/15/2025 10:00 AM EDT Office Visit [facility] [address] [place] [address] Eddie Rodriguez documented as of this encounter Visit Diagnoses Not on filedocumented in this encounter Care Teams Emt/Dispatcher Relationship Specialty Start Date End Date Anne Caballero MD [address] [place] [address] PCP - General Family Medicine 07/30/12 documented as of this encounter
--- OUTSIDE RECORDS SUMMARY | 2024-10-14 18:52 | XMS_ITS | Encounter Summary ---
Author Organization [employer] Address [address] [place] [address] 7t [place] [address] Care Team Providers Care Ecotherapist Name Role Phone Anne Caballero MD Primary Care Provider [phone] Reason for Visit * Reason Comments Med Refill Encounter Details Date Type Department Care Team ([facility] st Contact Info) Description 11/03/2022 Refill [facility] [address] [place], [place] [phone] Anne Caballero MD [address] [place] [address] Chronic obstructive pulmonary disease, unspecified COPD type [...] PM EST documented as of this encounter Miscellaneous Notes * Telephone Encounter - Liset Brown - 11/04/2022 11:54 AM EDT Tc from patient requesting a med refill on medication albuterol HFA. States documented in this encounter Plan of Treatment Upcoming Encounters Date Type Department Care Team ([facility] st Contact Info) Description 04/15/2025 10:00 AM EDT Office Visit [facility] AD[facility] [address] [place] [address] Eddie Rodriguez documented as of this encounter Visit Diagnoses Diagnosis Chronic obstructive pulmonary disease, unspecified COPD type (CMS/HCC) documented in this encounter Additional Health Concerns Assessment Noted Time PHQ-9 Depression Total Score: 4 10/21/19 23 9:37 AM EST documented as of this encounter Care Teams Ecotherapist Relationship Specialty Start Date End Date Anne Caballero MD [address] [place] [address] PCP - General Family Medicine 07/30/12 documented as of this encounter
--- OUTSIDE RECORDS SUMMARY | 2024-10-14 18:52 | XMS_ITS | Encounter Summary ---
Author Organization [employer] Address [address] [place] [address] 7t [place] [address] Care Team Providers Care Senior Living Advisor Name Role Phone Anne Caballero MD Primary Care Provider [phone] Encounter Details Date Type Department Care Team (Latest Contact Info) Description 06/07/2022 Abstract [facility] CONVERSIONS Dental, Provider, DDS Social History [...] Description 04/15/2025 10:00 AM EDT Office Visit [facility] [address] [place] [address] Eddie Rodriguez documented as of this encounter Visit Diagnoses Not on filedocumented in this encounter Care Teams Senior Living Advisor Relationship Specialty Start Date End Date Anne Caballero MD [address] [place] [address] PCP - General Family Medicine 07/30/12 documented as of this encounter
--- OUTSIDE RECORDS SUMMARY | 2024-10-14 18:52 | XMS_ITS | Encounter Summary ---
Author Organization [employer] Address [address] [place] [address] 7t [place] [address] Care Team Providers Care Senior Project Engineer Name Role Phone Anne Caballero MD Primary Care Provider [phone] Reason for Visit * Reason Onset Date Comments Results 01/27/2023 Encounter Details Date Type Department Care Team ([facility] Contact Info) Description 01/27/2023 Telephone [facility] [address] [place] [address] Anne Caballero MD [address] [place] [address] Results Social History Tobacco Use Types Packs/Day Years [...] Telephone Encounter - Cristopher Dupont RN - 01/31/2023 12:22 PM EDT Pt requesting lab results. Please review lab results from 01/25/23 and advise of results/plan. Thanks. * Telephone Encounter - Jorge Restrepo - 01/31/2023 10:03 AM EDT Tc from pt returning call for lab results. * Telephone Encounter - Liset Brown - 01/27/2023 1:50 PM EDT Tc from patient requesting lab test results. documented in this encounter Plan of Treatment Upcoming Encounters Date Type Department Care Team (Late st Contact Info) Description 04/15/2025 10:00 AM EDT Office Visit [facility] ADULT DENTAL [address] [place] [address] Eddie Rodriguez documented as of this encounter Visit Diagnoses Not on filedocumented in this encounter Additional Health Concerns Assessment Noted Time PHQ-9 Depression Total Score: 4 10/21/19 23 9:37 AM EST documented as of this encounter Care Teams Senior Project Engineer Relationship Specialty Start Date End Date Anne Caballero MD [address] [place] [address] PCP - General Family Medicine 07/30/12 documented as of this encounter
--- OUTSIDE RECORDS SUMMARY | 2024-10-14 18:52 | XMS_ITS | Encounter Summary ---
Author Organization [employer] Address [address] [facility] [address] 7[address] [place] [address] Care Team Providers Care Computer Drafter Name Role Phone Anne Caballero MD Primary Care Provider [phone] Reason for Visit * Reason Onset Date Comments Nurse Triage 10/14/2024 Encounter Details Date Type Department Care Team ([facility] st Contact Info) Description 10/14/2024 Telephone [facility] MED [facility]EDS [address] [place] [address] Anne Caballero MD [address] [place] [address] Nurse Triage Social History Tobacco Use Types Packs/Day Years [...] encounter Miscellaneous Notes * Telephone Encounter - Shanelle Ospina RN - 10/14/2024 1:11 PM EST Called pt. She states that her right shoulder blade/scapula area has an ongoing nagging pain- Pt. Feels itchy under her skin but, there is no visible rash. Pt states this has been going on over a month. Pt is now wondering if it could be shingles without a rash visible. No fever, no cold sx. No injury noted. Protocol Used: Shoulder Pain (Adult) Protocol-Based Disposition: See in [facility] walk in today for evaluation. Video visit not offered Positive Triage Question: * Shoulder pain is a chronic symptom (recurrent or ongoing AND present > 4 weeks) * All higher-acuity triage questions were negative Care Advice Discussed: * Reassurance and Education - Muscle Strain * Reassurance and Education - Overuse * Telephone Encounter - Leidy Martinez - 10/14/2024 1:05 PM EST Symptom: Shoulder Pain and itches - Not From Injury Outcome: Schedule an appointment to be seen within 24 hours Reason: Caller denied all higher acuity questions The caller accepted this outcome. documented in this encounter Plan of Treatment Upcoming Encounters Date Type Department Care Team (Late st Contact Info) Description 04/15/2025 10:00 AM EDT Office Visit [facility] ADULT DENTAL [address] [place] [address] Eddie Rodriguez documented as of this encounter Visit Diagnoses Not on filedocumented in this encounter Additional Health Concerns Assessment Noted Time PHQ-9 Depression Total Score: 4 10/21/19 23 9:37 AM EST documented as of this encounter Care Teams Computer Drafter Relationship Specialty Start Date End Date Anne Caballero MD [address] [place] [address] PCP - General Family Medicine 07/30/12 documented as of this encounter
--- OUTSIDE RECORDS SUMMARY | 2024-10-14 18:52 | XMS_ITS | Encounter Summary ---
Author Organization [employer] Address [address] [facility] [address] [place] [address] Care Team Providers Care Lifestyle Coordinator Name Role Phone Anne Caballero MD Primary Care Provider [phone] Reason for Visit * Reason Onset Date Comments Hospital Follow-up 10/10/2023 Encounter Details Date Type Department Care Team ([facility] st Contact Info) Description 10/10/2023 Telephone [facility] [address] [place] [address] Anne Caballero MD [address] [place], [place] [phone] Hospital Follow-up Social History Tobacco Use Types Packs/Day Years [...] encounter Miscellaneous Notes * Telephone Encounter - Shante Chatman - 10/10/2023 10:51 AM EST Tc from pt requesting a HDF appt. Hospital: [facility] Date of admission: 10/03/2023 Discharge date: 10/05/2023 Diagnosed: COPD documented in this encounter Plan of Treatment Upcoming Encounters Date Type Department Care Team (Late st Contact Info) Description 04/15/2025 10:00 AM EDT Office Visit [facility] ADULT D[facility] [address] [place] [address] Eddie Rodriguez documented as of this encounter Visit Diagnoses Not on filedocumented in this encounter Additional Health Concerns Assessment Noted Time PHQ-9 Depression Total Score: 4 10/21/19 23 9:37 AM EST documented as of this encounter Care Teams Lifestyle Coordinator Relationship Specialty Start Date End Date Anne Caballero MD [address] [place] [phone] PCP - General Family Medicine 07/30/12 documented as of this encounter
--- OUTSIDE RECORDS SUMMARY | 2024-10-14 18:52 | XMS_ITS | Encounter Summary ---
Author Organization [employer] Address [address] [facility] 7t [place] [address] Care Team Providers Care Systems Architecture Analyst Name Role Phone Anne Caballero MD Primary Care Provider [phone] Reason for Visit * Reason Onset Date Comments Med Refill 03/13/2024 Encounter Details Date Type Department Care Team ([facility] st Contact Info) Description 03/13/2024 Refill [facility] MED & PEDS [address] [place] [address] Anne Caballero MD [address] [place] [address] Chronic obstructive pulmonary disease, unspecified COPD type [...] 10:00 AM EDT Office Visit [facility] ADULT DENTAL [address] [place] [address] Eddie Rodriguez documented as of this encounter Visit Diagnoses Diagnosis Chronic obstructive pulmonary disease, unspecified COPD type (CMS/HCC) documented in this encounter Additional Health Concerns Assessment Noted Time PHQ-9 Depression Total Score: 4 10/21/19 23 9:37 AM EST documented as of this encounter Care Teams Systems Architecture Analyst Relationship Specialty Start Date End Date Anne Caballero MD [address] [place] [address] PCP - General Family Medicine 07/30/12 documented as of this encounter
--- OUTSIDE RECORDS SUMMARY | 2024-10-14 18:52 | XMS_ITS | Encounter Summary ---
Author Organization [employer] Address [address] [place] [address] 7t [place] [address] Care Team Providers Care Information Management Specialist Name Role Phone Anne Caballero MD Primary Care Provider [phone] Encounter Details Date Type Department Care Team (Latest Contact Info) Description 04/22/2021 Abstract [facility] CONVERSIONS Dental, Provider, DDS Social History Tobacco [...] Description 04/15/2025 10:00 AM EDT Office Visit [facility] ADULT D[facility] [address] [place] [address] Eddie Rodriguez documented as of this encounter Visit Diagnoses Not on filedocumented in this encounter Care Teams Information Management Specialist Relationship Specialty Start Date End Date Anne Caballero MD [address] [place] [address] PCP - General Family Medicine 07/30/12 documented as of this encounter
--- OUTSIDE RECORDS SUMMARY | 2024-10-14 18:52 | XMS_ITS | Encounter Summary ---
Author Organization [employer] Address [address] [facility] 7t [place] [address] Care Team Providers Care Clinical Training Coordinator Name Role Phone Anne Caballero MD Primary Care Provider [phone] Reason for Visit * Reason Onset Date Comments Med Refill 10/20/2023 Encounter Details Date Type Department Care Team ([facility] st Contact Info) Description 10/20/2023 Refill [facility]EDS [address] [place] [address] Killian Rodriguez MD [address] [place] [address] Chronic obstructive pulmonary disease, unspecified COPD type [...] Description 04/15/2025 10:00 AM EDT Office Visit [facility] ADULT DENT[facility] [address] [place] [address] Eddie Rodriguez documented as of this encounter Visit Diagnoses Diagnosis Chronic obstructive pulmonary disease, unspecified COPD type (CMS/HCC) documented in this encounter Additional Health Concerns Assessment Noted Time PHQ-9 Depression Total Score: 4 10/21/19 23 9:37 AM EST documented as of this encounter Care Teams Clinical Training Coordinator Relationship Specialty Start Date End Date Anne Caballero MD [address] [place] [address] PCP - General Family Medicine 07/30/12 documented as of this encounter
== END 2024-10-14 16:15 | disposition home or self-care (01) ==
LOC: HO.XRAY 16:14
PROVIDERS: PCP Student in an Organized Health Care Education/Training Program; Visit Provider Emergency Medicine
DX: R07.89 Other chest pain (principal)
CPT/HCPCS: 36415; 71046; 80048

== ENCOUNTER → 2024-10-14 16:32 | Outpatient (BNV) | payer OTHER, SELFPAY | PROVIDERS: PCP Student in an Organized Health Care Education/Training Program; Visit Provider Radiology Diagnostic Radiology | DX: R07.89 Other chest pain (principal) | CPT/HCPCS: 71046 ==

== ENCOUNTER 2024-10-18 12:46 | Outpatient (REF) | payer OTHER, SELFPAY ==
--- NOTE | ~2024-10-18 | US_ITS ---
CLINICAL HISTORY: referred pain from biliary colic US abdomen limited. COMPARISON: None Technique: Real time sonographic imaging, including color-flow imaging, was performed by the assisted living executive director. Multiple special service representative static images were saved for review. FINDINGS: The visualized aorta and inferior vena cava are normal caliber. The visualized portions of the pancreas appear normal. The liver has normal echotexture. Hepatic cyst within the left lobe measuring 1.0 x 0.8 x 1.3 cm. Hepatic cyst within the right lobe measuring 4.6 x 3.2 x 3.8 cm. The main portal vein is antegrade. The gallbladder is normal in size. No cholelithiasis or sludge identified. There is a negative sonographic Mccann's sign. Gallbladder wall: 2 mm, normal. Common bile duct: 7 mm, normal. Right kidney: Cortical medullary differentiation is maintained. Normal color flow by Doppler. Right renal simple cyst at the superior pole measuring 1.2 x 0.9 x 1.2 cm. No hydronephrosis. Right kidney length: 9.6 cm No free intraperitoneal fluid identified. IMPRESSION: 1. No cause for patient's symptoms identified. No evidence of cholecystitis. No evidence of right renal obstruction. This document has been electronically signed by: Alfonzo Briones MD on 10/21/2024 14:55:11
--- OUTSIDE RECORDS SUMMARY | 2024-10-18 14:22 | XMS_ITS | Encounter Summary ---
Author Organization [email or web address] Address [address] [facility] 7t [place] [address] Care Team Providers Care Lacquerer Name Role Phone Anne Caballero MD Primary Care Provider [phone] Reason for Visit * Reason Onset Date Comments Med Refill 10/20/2023 Encounter Details Date Type Department Care Team ([facility] st Contact Info) Description 10/20/2023 Refill [facility] MED [facility] PEDS [address] [place] [address] Killian Rodriguez MD 505 [place] [address] Chronic obstructive pulmonary disease, unspecified COPD type [...] 10:00 AM EDT Office Visit [facility] ADULT [facility] [address] [place] [address] Eddie Rodriguez documented as of this encounter Visit Diagnoses Diagnosis Chronic obstructive pulmonary disease, unspecified COPD type (CMS/HCC) documented in this encounter Additional Health Concerns Assessment Noted Time PHQ-9 Depression Total Score: 4 10/21/19 23 9:37 AM EST documented as of this encounter Care Teams Lacquerer Relationship Specialty Start Date End Date Anne Caballero MD [address] [place] [address] PCP - General Family Medicine 07/30/12 documented as of this encounter
--- OUTSIDE RECORDS SUMMARY | 2024-10-18 14:22 | XMS_ITS | Clinical Summary ---
Author Organization [facility] Address [address] [facility] 20 0 [place] [address] Phone Care Team Providers Care Landscape Crew Member Name Role Phone Anne Caballero MD Primary Care Provider [phone] Allergies No known active allergies Medications amitriptyline [...] patient's age to complete this topic Insurance [id number] ONE CARE DUAL SNP ([id number]) [facility] ONE CARE DUAL SNP ([id number]) Care Teams Landscape Crew Member Relationship Specialty Start Date End Date Anne Caballero MD [address] [place] [address] PCP - General Family Medicine 02/21/22
--- OUTSIDE RECORDS SUMMARY | 2024-10-18 14:22 | XMS_ITS | Encounter Summary ---
Author Organization [employer] Address [address] [facility] 7t [place] [address] Care Team Providers Care Goodyear Welter Name Role Phone Anne Caballero MD Primary Care Provider [phone] Reason for Visit * Reason Onset Date Comments Med Refill 03/13/2024 Encounter Details Date Type Department Care Team ([facility] st Contact Info) Description 03/13/2024 Refill [facility] MED & PEDS [address] [place] [address] Anne Caballero MD 505 [place] [address] Chronic obstructive pulmonary disease, unspecified COPD type [...] 10:00 AM EDT Office Visit [facility] ADULT D[facility] [address] [place] [address] Eddie Rodriguez documented as of this encounter Visit Diagnoses Diagnosis Chronic obstructive pulmonary disease, unspecified COPD type (CMS/HCC) documented in this encounter Additional Health Concerns Assessment Noted Time PHQ-9 Depression Total Score: 4 10/21/19 23 9:37 AM EST documented as of this encounter Care Teams Goodyear Welter Relationship Specialty Start Date End Date Anne Caballero MD [address] [place] [address] PCP - General Family Medicine 07/30/12 documented as of this encounter
--- OUTSIDE RECORDS SUMMARY | 2024-10-18 14:22 | XMS_ITS | Encounter Summary ---
Author Organization [employer] Address 75 [facility] 7t [place] [address] Care Team Providers Care Business Performance Analyst Name Role Phone Anne Caballero MD Primary Care Provider [phone] Reason for Visit * Reason Onset Date Comments Results 10/16/2024 Encounter Details Date Type Department Care Team ([facility] Contact Info) Description 10/16/2024 Telephone [facility] MEDICINE [address] [place] [address] Diana Rojo, LUZ MARINA [address] [place], [place] [phone] Results Social History Tobacco Use Types Packs/Day [...] encounter Miscellaneous Notes * Telephone Encounter - Diana Rojo RN - 10/16/2024 1:49 PM EST Telephone call placed to pt regarding below message. Informed CXR and lab results we have gotten sofar look good. Informed d-dimer not run. Advised to get done at [facility]. Pt reports that that is where she got labs done yesterday. Informed that I will fax them the lab requisition incase they didn't get it electronically yesterday. Pt states can't go today because it is tanvir Monday but will go tomorrow. Also reports that she has US scheduled for this Monday10/18/24. Advised pt call back if she needs anything. Lab requisition faxed to [facility] lab Please let Juana know that her CXR was read as no acute findings. Her BMP was normal, but the d-dimer wasn't done. Could she return to [facility] lab for d-dimer? (it is not done at [facility] lab). I ordered an abd US at [facility]. Thanks Alvarado documented in this encounter Plan of Treatment Upcoming Encounters Date Type Department Care Team (Late st Contact Info) Description 04/15/2025 10:00 AM EDT Office Visit [facility] ADULT DENT[facility] [address] [place] [address] Eddie Rodriguez documented as of this encounter Visit Diagnoses Not on filedocumented in this encounter Additional Health Concerns Assessment Noted Time PHQ-9 Depression Total Score: 4 10/21/19 23 9:37 AM EST documented as of this encounter Care Teams Business Performance Analyst Relationship Specialty Start Date End Date Anne Caballero MD [address] [place] [address] PCP - General Family Medicine 07/30/12 documented as of this encounter
--- OUTSIDE RECORDS SUMMARY | 2024-10-18 14:22 | XMS_ITS | Encounter Summary ---
Author Organization [employer] Address [address] [facility] [address] 7t [place] [address] Care Team Providers Care Museum Assistant Name Role Phone Anne Caballero MD Primary Care Provider [phone] Reason for Visit * Reason Onset Date Comments FYI 01/02/2024 Encounter Details Date Type Department Care Team ([facility] Contact Info) Description 01/02/2024 Telephone [facility] [address] [place] [address] Anne Caballero MD [address] [place], [place] [phone] FYI Social History Tobacco Use Types Packs/Day [...] - 01/02/2024 1:19 PM EDT Tc from [facility] calling to inform PCP pt will be discharge today 01/01 from PT documented in this encounter Plan of Treatment Upcoming Encounters Date Type Department Care Team (Late st Contact Info) Description 04/15/2025 10:00 AM EDT Office Visit [facility] ADULT DENTAL [address] [place] [address] Eddie Rodriguez documented as of this encounter Visit Diagnoses Not on filedocumented in this encounter Additional Health Concerns Assessment Noted Time PHQ-9 Depression Total Score: 4 10/21/19 23 9:37 AM EST documented as of this encounter Care Teams Museum Assistant Relationship Specialty Start Date End Date Anne Caballero MD [address] [place] [address] PCP - General Family Medicine 07/30/12 documented as of this encounter
--- OUTSIDE RECORDS SUMMARY | 2024-10-18 14:22 | XMS_ITS | Encounter Summary ---
Author Organization [facility] Address [address] [place] [address] Phone Care Team Providers Care Study Coordinator Name Role Phone Anne Caballero MD Primary Care Provider Encounter Details Date Type Department Care Team (Late st Contact Info) Description 03/29/2022 Documentation Only [facility] [address] [place] [address] Priscila Collins MD Social History Tobacco [...] on filedocumented in this encounter Care Teams Study Coordinator Relationship Specialty Start Date End Date Anne Caballero MD [address] [place] [address] PCP - General Family Medicine 02/21/22 documented as of this encounter
--- OUTSIDE RECORDS SUMMARY | 2024-10-18 14:22 | XMS_ITS | Encounter Summary ---
Author Organization [email or web address] Address [address] [facility] [address] 7t [place] [address] Care Team Providers Care Sealant Mixer Name Role Phone Anne Caballero MD Primary Care Provider [phone] Reason for Visit * Reason Onset Date Comments Hospital Follow-up 10/10/2023 Encounter Details Date Type Department Care Team ([facility] st Contact Info) Description 10/10/2023 Telephone [facility] MEDICINE 230 [place] [address] Anne Caballero MD [address] [place], [place] [phone] Hospital Follow-up Social History Tobacco Use Types [...] from pt requesting a HDF appt. Hospital: [facility] Date of admission: 10/03/2023 Discharge date: 10/05/2023 Diagnosed: COPD documented in this encounter Plan of Treatment Upcoming Encounters Date Type Department Care Team (Late st Contact Info) Description 04/15/2025 10:00 AM EDT Office Visit [facility] ADULT D[facility]AL [address] [place] [address] Eddie Rodriguez documented as of this encounter Visit Diagnoses Not on filedocumented in this encounter Additional Health Concerns Assessment Noted Time PHQ-9 Depression Total Score: 4 10/21/19 23 9:37 AM EST documented as of this encounter Care Teams Sealant Mixer Relationship Specialty Start Date End Date Anne Caballero MD [address] [place] [address] PCP - General Family Medicine 07/30/12 documented as of this encounter
--- OUTSIDE RECORDS SUMMARY | 2024-10-18 14:22 | XMS_ITS | Clinical Summary ---
Author Organization [employer] Address [address] [place] [address] 7t [place] [address] Care Team Providers Care Filler Sifter Helper Name Role Phone Anne Caballero MD Primary Care Provider Allergies No known active allergies Medications Fluticasone [...] Encounters Date Type Department Care Team Description 10/16/[address] [facility] [address] [place] [address] Diana Rojo RN Results 10/14/2024 3:00 PM EST Office Visit [facility] [address] [place], [place] [phone] Sebastián Arrieta MD Posterior chest pain (Primary Dx); Chronic right shoulder pain 10/14/2024 Telephone [facility] MED & PEDS [address] [place], [place] [phone] Anne Caballero MD Nurse Triage 10/07/2024 10:00 AM EST Office Visit [facility] ADULT DENTAL [address] [place], [place] [phone] Eddie Rodriguez Dental calculus (Primary Dx) 09/03/2024 11:00 AM EST Office Visit [facility] MED & PEDS [address] [place], [place] [phone] Killian Rodriguez MD Seborrheic keratosis (Primary Dx); Lentigines 09/03/2024 Travel from Last 3 Months Immunizations Name Administration [...] 04/15/2025 10:00 AM EDT Office Visit [facility] ADULT [facility] [address] [place] [address] Eddie Rodriguez [facility] Due Date Last Done Comments CT Colonography [...] 10/20/2022, 10/21/19 23 COVID-19 Vaccine ( - 2023- season) 2024 11/10/2020, 10/08/2020 SDOH Screening 12/28/2024 [...] Procedure Name Priority Date/Time Associated Diagnosis Comments XR CHEST 2 VIEWS Routine 10/14/2024 5:00 PM EST Posterior chest pain BASIC METABOLIC PANEL Routine 10/14/2024 4:27 PM EST Posterior chest pain CASE PRESENTATION, DETAILED AND EXTENSIVE TREATMENT PLANNING Routine 10/07/2024 10:00 AM EST ORAL HYGIENE INSTRUCTIONS Routine 10/07/2024 10:00 AM EST PROPHYLAXIS - ADULT Routine 10/07/2024 1 0:00 AM EST CRYOTHERAPY SKIN LESION Routine 09/03/2024 12:41 PM EST Seborrheic keratosis BI MAMMOGRAM SCREENING TOMOSYNTHESIS BILATERAL Routine 06/27/2024 3:41 PM EST LAB COLOGUARD?? COLON CANCER SCREEN Routine 06/12/2024 12:30 PM EDT Encounter for screening for malignant neoplasm of colon BITEWINGS - 2 RADIOGRAPHIC IMAGES Routine 04/04/2024 2:00 PM EDT LIPID PANEL, STANDARD Routine 09/29/2023 11:51 AM EST Benign hypertension from Last 3 Months or Most Recently Relevant to Health Maintenance Results * XR Chest 2 Views (10/14/2024 5:00 PM EST) Anatomical Region Laterality Modality Chest Radiographic Roxana ging 10/14/2024 5:00 PM EST Narrative 10/15/2024 10:57 AM EST ? [facility] ?[address] ?[place] [address] ?XRay Report ? Signed ? Patient: Jessica,Juana ?MR#: [id number] ?? 32 ? : 1955 ?Acct:[id number] ? Age/Sex: 69 / F ?ADM Date: 10/14/24 ? Loc: HO.XRAY ? Attending Dr: Sebastián Arrieta MD ? Ordering Physician: SEBASTIÁN ARRIETA MD ?? Date of Service: 10/14/24 ?? Procedure(s): XR chest 2V ?? Accession Number(s): [id number] ? cc: SEBASTIÁN ARRIETA MD; Anne Caballero MD ? EXAMINATION: ?? XR CHEST ? CLINICAL INFORMATION: ?? 1 month h/o upper right posterior chest pain ? COMPARISON: ?? CT chest 12 11/14/2023 ? TECHNIQUE: ?? 2 views of the chest were obtained. ? FINDINGS: ?? The lungs are hyperinflated but clear acute process. The heart size and ?? pulmonary vascularity is normal. No gross bony abnormality seen. There ?? is mild thoracolumbar scoliosis. ? XR/XR chest 2V ?? IMPRESSION: ?? Hyperinflated lungs without acute process. ? Electronically signed by: ??Devin Staples MD ??10/15/2024 10:50 AM EST RP ? Dictated By: ?Devin Staples MD ? Signed By: ?<Electronically signed by Devin Staples MD in OV> ?10/15/24 1050 ? DD/ 99 ? TD/TT: 10/14/241704 ? Waterproofer Helper: MSM ? Procedure Note Jomar Siegel - 10/15/2024 [place] [address] XRay Report Signed Patient: Fabian Lopez#: [id number] 34 : 4Acct:[id number] Age/Sex: 69 / FADM Date: 10/14/24 Loc: [place] Attending Dr: Sebastián Arrieta MD Ordering Physician: SEBASTIÁN ARRIETA MD Date of Service: 10/14/24 Procedure(s): XR chest 2V Accession Number(s): [id number] cc: SEBASTIÁN ARRIETA MD; Anne Caballero MD EXAMINATION: XR CHEST CLINICAL INFORMATION: 1 month h/o upper right posterior chest pain COMPARISON: CT chest 12 11/14/2023 TECHNIQUE: 2 views of the chest were obtained. FINDINGS: The lungs are hyperinflated but clear acute process. The heart size and pulmonary vascularity is normal. No gross bony abnormality seen. There is mild thoracolumbar scoliosis. XR/XR chest 2V IMPRESSION: Hyperinflated lungs without acute process. Electronically signed by: Devin Staples MD 10/15/2024 10:50 AM EST RP Dictated By: Devin Staples MD Signed By: <Electronically signed by Devin Staples MD in OV> 10/15/24 1050 DD/ 99 TD/TT: 10/14/241704 Waterproofer Helper: MANUEL Sebastián Arrieta MD IMG XR PROCEDURES Final Result * Basic Metabolic Panel (10/14/2024 4:27 PM EST) Sodium 138 135 - 145 mmol/L [facility] Potassium 4.4 3.3 - 5.1 mmol/L [facility] Chloride 103 96 - 108 mmol/L [facility] Carbon Dioxide 26 22 - 29 mmol/L [facility] Anion Gap 13 12 - 20 [facility] Urea Nitrogen (BUN) 15 9 - 16 mg/dL [facility] Creatinine, Serum 1.02 0.5 - 1.4 mg/dL [facility] Estimated Glomerular Filt Rate 53 [facility] Comment:Chronic Kidney Disea se: Estimated GFR < 60 mL/min/1.83j8Gqdesc Kidney Disease: Estimated GFR < 15 mL/min/1.73m2 Glucose 104 60 - 115 mg/dL [facility] Calcium 10.2 8.4 - 10.2 mg/dL [facility] Blood Venous blood specimen / Unknown 10/14/2024 4:27 PM EST 10/14/2024 4:27 PM EST us Sebastián Arrieta MD LAB BLOOD ORDERABLES Final Resul t [facility] [address] [place] [address] [phone] * Cryotherapy, skin lesion (09/03/2024 12:41 PM [...] No ?Instructions and paperwork completed: Yes ?? [place] protocol: ??Procedure explained and questions answered to [...] DERM PROCEDURE ORDERABLES F inal Result * BI Mammogram Screening Tomosynthesis Bilateral (06/27/2024 3:41 PM EST) Anatomical Region Laterality Modality Breast Bilateral Mammography 06/27/2024 3:41 PM EST Narrative 07/05/2024 12:50 PM EST ? [facility] ? [address] ?[place] [address] ? Mammography Report ? Signed ? Patient: Jessica,Juana ?MR#: [id number] ?? 32 ? : 1955 ?Acct:[id number] ? Age/Sex: 68 / F ?ADM Date: 06/27/24 ? Loc: HO.MAMMO ? Attending Dr: Anne Caballero MD ? Ordering Physician: Anne Caballero MD ?Results: 1Negati ?? ve ? Date of Service: 06/27/24 ?Follow Up: 1 Year From Orig ?? inal Mammogram ? Procedure(s): MM tomosynthesis screening BI ?? Accession Number(s): [id number] ? cc: Anne Caballero MD ? EXAMINATION: [...] DD/ 1541 ? TD/TT: 06/27/24 1554 ? Waterproofer Helper: ? Procedure Note Donotuseinterpreter, Image - 07/05/2024 [facility] [address] [place] [address] Mammography Report Signed Patient: Fabian Lopez#: [id number] 32 : 4Acct:[id number] Age/Sex: 68 / FADM Date: 06/27/24 Loc: HO.MAMMO Attending Dr: Anne Caballero MD Ordering Physician: Anne Caballero MDResults: 1Negati ve Date of Service: 06/27/24Follow Up: 1 Year From Orig inal Mammogram Procedure(s): MM tomosynthesis screening BI Accession Number(s): [id number] cc: Anne Caballero MD EXAMINATION: MM SCREENING [...] 07/05/24 1247 DD/ 1541 TD/TT: 06/27/24 1554 Waterproofer Helper: Anne Caballero MD IMG BI PROCEDURES Final Result * Cologuard?? colon cancer screening (06/12/2024 12:30 PM EDT) Cologuard Result Negative Negative 06/20/20 10:31 AM EST [employer] [facility] (CLIA #:[id number]) Comment: NEGATIVE TEST RESULT. A negative Cologuard [...] cancer. ??Following a negative Cologuard result, the [place] Cancer Society and U.S. Multi-Society Task Force screening guidelines recommend a Cologuard re-screening interval of 3 years. References: [place] Cancer Society Guideline for Colorectal Cancer Screening: https://www.cancer.org/cancer/lusre-lmizzb-thpihy/uwbzqzftb-klvdmtwrf-lbfiyzg/ac s-rec ommendations.html.; Brandon DK, Mark CR, Cathleen GerardK, Colorectal Cancer Screening: Recommendations for Physicians and Patients from the U.S. Multi-Society Task Force on Colorectal Cancer Screening , Am J Gastroenterology 2017; 112:6174-7560. TEST DESCRIPTION: Composite algorithmic analysis of stool [...] (Hugo Woodson al, N Engl J Med 2014;370(14):2789-2753.) Cologuard may produce a false negative or false positive result (no colorectal cancer or precancerous polyp present at colonoscopy follow up). A negative Cologuard test result does not guarantee the absence of CRC or advanced adenoma (pre-cancer). The current Cologuard screening interval is every 3 years. ([place] Cancer Society and U.S. Multi-Society Task Force). Cologuard performance data in a 10,000 patient pivotal study using colonoscopy as the reference method can be accessed at the following location: www.DinnerTime.Pharmacopeia/results. Additional description of the Cologuard test process, warnings and precautions can be found at www.[employer].com. Stool specimen (specimen) 06/12/2024 12:30 PM EDT 06/14/2024 1:04 PM EDT Anne Caballero MD LAB MOLECULAR DIAGNOSTICS ORDERA BLES Final Result [employer] [facility] (CLIA #:[id number]) [place] [address], * (ABNORMAL) Lipid Panel, Standard (09/29/2023 11:51 AM EST) Triglycerides 89 <150 mg/dL [facility] Comment:Desirable Triglyceri de: less than 150 mg/dLBorderline High Triglyceride 150-199 mg/dLHigh Triglyceride: 200-499 mg/dLVery High Triglyceride: greater than or equal to 5OO mg/dL Cholesterol 203(H) <200 mg/dL [facility] Comment:Desirable Cholestero l: less than 200 mg/dLBorderline High Cholesterol: 200-239 mg/dLHigh Cholesterol: greater than 239 mg/dL LDL Cholesterol Calculated 114(H) <100 mg/dL [facility] Comment:Desirable LDL: less than 100 mg/dLNear Optimal/Above Optimal LDL: 110- 129 mg/dLBorderline High LDL: 130-159 mg/dLHigh LDL: 160-189 mg/dLVery High LDL: greater than or equal to 190 mg/dL HDL Cholesterol 72 >40 mg/dL [facility] Comment:Desirable HDL: great er than 40 mg/dL Note: This HDL assay may give artificially low results in patients with liver disease. Blood Venous blood specimen / Unknown 09/29/2023 11:51 AM EST 09/29/2023 1:17 PM EST Anne Caballero MD LAB BLOOD ORDERABLES Final Resul t [facility] [address] [place] [phone] from Last 3 Months or Most Recently Relevant to Health Maintenance Insurance [address] [place] [facility] [place] [address] Care Teams Filler Sifter Helper Relationship Specialty Start Date End Date Anne Caballero MD [address] [place] [address] PCP - General Family Medicine 07/30/12
--- OUTSIDE RECORDS SUMMARY | 2024-10-18 14:23 | XMS_ITS | Encounter Summary ---
Author Organization [employer] Address [address] [place] [address] 7t [place] [address] Care Team Providers Care Day Care Supervisor Name Role Phone Anne Caballero MD Primary Care Provider [phone] Encounter Details Date Type Department Care Team (Late st Contact Info) Description 07/29/2022 Orders Only [facility] [address] [place], [place] [phone] Hannah Berger LPN Social History Tobacco Use Types Packs/Day [...] Description 04/15/2025 10:00 AM EDT Office Visit [facility] ADULT [facility] [address] [place] [address] Eddie Rodriguez documented as of this encounter Visit Diagnoses Not on filedocumented in this encounter Care Teams Day Care Supervisor Relationship Specialty Start Date End Date Anne Caballero MD [address] [place] [address] PCP - General Family Medicine 07/30/12 documented as of this encounter
--- OUTSIDE RECORDS SUMMARY | 2024-10-18 14:23 | XMS_ITS | Encounter Summary ---
Author Organization [employer] Address [address] [place] [address] 7t [place] [address] Care Team Providers Care Vibrating Screed Operator Name Role Phone Anne Caballero MD Primary Care Provider [phone] Reason for Visit * Reason Onset Date Comments Results 01/27/2023 Encounter Details Date Type Department Care Team ([facility] Contact Info) Description 01/27/2023 Telephone [facility] & PEDS [address] [place] [address] Anne Caballero MD [address] [place] [address] Results Social History Tobacco Use Types Packs/Day [...] [facility] [address] [place] [address] Eddie Rodriguez documented as of this encounter Visit Diagnoses Not on filedocumented in this encounter Additional Health Concerns Assessment Noted Time PHQ-9 Depression Total Score: 4 10/21/19 23 9:37 AM EST documented as of this encounter Care Teams Vibrating Screed Operator Relationship Specialty Start Date End Date Anne Caballero MD [address] [place] [address] PCP - General Family Medicine 07/30/12 documented as of this encounter
--- OUTSIDE RECORDS SUMMARY | 2024-10-18 14:23 | XMS_ITS | Encounter Summary ---
Author Organization [employer] Address [address] [place] [address] 7t [place] [address] Care Team Providers Care Sports Development Officer Name Role Phone Anne Caballero MD Primary Care Provider [phone] Encounter Details Date Type Department Care Team ([facility] Contact Info) Description 12/30/2022 Orders Only [facility] MED & PEDS [address] [place] [address] Shruti Piña LPN Social History Tobacco Use [...] Description 04/15/2025 10:00 AM EDT Office Visit [facility] ADULT DENTAL [address] [place] [address] Eddie Rodriguez documented as of this encounter Visit Diagnoses Not on filedocumented in this encounter Additional Health Concerns Assessment Noted Time PHQ-9 Depression Total Score: 4 10/21/19 23 9:37 AM EST documented as of this encounter Care Teams Sports Development Officer Relationship Specialty Start Date End Date Anne Caballero MD [address] [place] [address] PCP - General Family Medicine 07/30/12 documented as of this encounter
--- OUTSIDE RECORDS SUMMARY | 2024-10-18 14:23 | XMS_ITS | Encounter Summary ---
Author Organization [employer] Address [address] [facility] 7t [place] [address] Care Team Providers Care Supervisor Customer Records Division Name Role Phone Anne Caballero MD Primary Care Provider [phone] Encounter Details Date Type Department Care Team (Latest Contact Info) Description 06/07/2022 Abstract [facility] CONVERSIONS Dental, Provider, DDS Social [...] 04/15/2025 10:00 AM EDT Office Visit [facility] CHC ADULT DENTAL [address] [place] [address] Eddie Rodriguez documented as of this encounter Visit Diagnoses Not on filedocumented in this encounter Care Teams Supervisor Customer Records Division Relationship Specialty Start Date End Date Anne Caballero MD [address] [place] [address] PCP - General Family Medicine 07/30/12 documented as of this encounter
--- OUTSIDE RECORDS SUMMARY | 2024-10-18 14:23 | XMS_ITS | Encounter Summary ---
Author Organization [employer] Address [address] [place] [address] 7t [place] [address] Care Team Providers Care Newspaper Or Periodical Editor Name Role Phone Anne Caballero MD Primary Care Provider [phone] Reason for Visit * Reason Comments Med Refill Encounter Details Date Type Department Care Team ([facility] Contact Info) Description 11/03/2022 Refill [facility] MED & PEDS [address] [place], [place] [phone] Anne Caballero MD 505 [place] [address] Chronic obstructive pulmonary disease, unspecified COPD type [...] Upcoming Encounters Date Type Department Care Team ([facility] Contact Info) Description 04/15/2025 10:00 AM EDT Office Visit [facility] ADULT DENTAL [address] [place] [address] Eddie Rodriguez documented as of this encounter Visit Diagnoses Diagnosis Chronic obstructive pulmonary disease, unspecified COPD type (CMS/HCC) documented in this encounter Additional Health Concerns Assessment Noted Time PHQ-9 Depression Total Score: 4 10/21/19 23 9:37 AM EST documented as of this encounter Care Teams Newspaper Or Periodical Editor Relationship Specialty Start Date End Date Anne Caballero MD [address] [place] [address] PCP - General Family Medicine 07/30/12 documented as of this encounter
--- OUTSIDE RECORDS SUMMARY | 2024-10-18 14:23 | XMS_ITS | Encounter Summary ---
Author Organization [employer] Address [address] [place] [address] 7t [place] [address] Care Team Providers Care Base Filler Operator Name Role Phone Anne Caballero MD Primary Care Provider [phone] Reason for Visit * Reason Comments Med Refill Encounter Details Date Type Department Care Team ([facility] st Contact Info) Description 11/03/2022 Refill [facility] MED & PEDS [address] [employer], [place] [phone] Anne Caballero MD 505 [place] [address] Chronic obstructive pulmonary disease, unspecified COPD type [...] Upcoming Encounters Date Type Department Care Team ([facility] st Contact Info) Description 04/15/2025 10:00 AM EDT Office Visit [facility] ADULT DENTAL [address] [place] [address] Eddie Rodriguez documented as of this encounter Visit Diagnoses Diagnosis Chronic obstructive pulmonary disease, unspecified COPD type (CMS/HCC) documented in this encounter Additional Health Concerns Assessment Noted Time PHQ-9 Depression Total Score: 4 10/21/19 23 9:37 AM EST documented as of this encounter Care Teams Base Filler Operator Relationship Specialty Start Date End Date Anne Caballero MD [address] [place] [address] PCP - General Family Medicine 07/30/12 documented as of this encounter
--- OUTSIDE RECORDS SUMMARY | 2024-10-18 14:23 | XMS_ITS | Encounter Summary ---
Author Organization [employer] Address [address] [place] [address] 7t [place] [address] Care Team Providers Care Hatchery Manager Name Role Phone Anne Caballero MD Primary Care Provider [phone] Encounter Details Date Type Department Care Team (Latest Contact Info) Description 04/22/2021 Abstract [facility] CONVERSIONS Dental, Provider, DDS Social History [...] Description 04/15/2025 10:00 AM EDT Office Visit [facility] CHC ADULT DENTAL [address] [place] [address] Eddie Rodriguez documented as of this encounter Visit Diagnoses Not on filedocumented in this encounter Care Teams Hatchery Manager Relationship Specialty Start Date End Date Anne Caballero MD [address] [place] [address] PCP - General Family Medicine 07/30/12 documented as of this encounter
--- OUTSIDE RECORDS SUMMARY | 2024-10-18 14:23 | XMS_ITS | Encounter Summary ---
Author Organization [employer] Address [address] [facility] 7t [place] [address] Care Team Providers Care Equipment Operator/Laborer Name Role Phone Anne Caballero MD Primary Care Provider [phone] Encounter Details Date Type Department Care Team (Latest Contact Info) Description 11/13/2018 Abstract [facility] CONVERSIONS Dental, Provider, DDS Social History Tobacco [...] Description 04/15/2025 10:00 AM EDT Office Visit [facility] CHC ADULT DENTAL [address] [place] [address] Eddie Rodriguez documented as of this encounter Visit Diagnoses Not on filedocumented in this encounter Care Teams Equipment Operator/Laborer Relationship Specialty Start Date End Date Anne Caballero MD [address] [place] [address] PCP - General Family Medicine 07/30/12 documented as of this encounter
--- OUTSIDE RECORDS SUMMARY | 2024-10-18 14:23 | XMS_ITS | Encounter Summary ---
Author Organization [employer] Address [address] [place] [address] 7t [place] [address] Care Team Providers Care Busgirl Name Role Phone Anne Caballero MD Primary Care Provider [phone] Encounter Details Date Type Department Care Team (Late st Contact Info) Description 09/08/2022 Orders Only [facility] MED & PEDS 505 [place] [address] Lainey Lee LPN Social History Tobacco Use Types [...] 10:00 AM EDT Office Visit [facility] ADULT DENTAL 505 [place] [address] Eddie Rodriguez documented as of this encounter Visit Diagnoses Not on filedocumented in this encounter Care Teams Busgirl Relationship Specialty Start Date End Date Anne Caballero MD [address] [place] [address] [place] [address] PCP - General Family Medicine 07/30/12 documented as of this encounter
--- OUTSIDE RECORDS SUMMARY | 2024-10-18 14:23 | XMS_ITS | Encounter Summary ---
Author Organization [employer] Address [address] [facility] 7t [place] [address] Care Team Providers Care Streets And Buildings Decorator Name Role Phone Anne Caballero MD Primary Care Provider [phone] Reason for Visit * Reason Onset Date Comments Nurse Triage 10/14/2024 Encounter Details Date Type Department Care Team ([facility] st Contact Info) Description 10/14/2024 Telephone [facility] MED & PEDS 505 [place] [address] Anne Caballero MD 505 [place] [address] Nurse Triage Social History Tobacco Use Types [...] Shoulder Pain (Adult) Protocol-Based Disposition: See in [facility] walk in today for evaluation. Video visit [...] Description 04/15/2025 10:00 AM EDT Office Visit [facility] CHC ADULT DENTAL [address] [place] [address] Eddie Rodriguez documented as of this encounter Visit Diagnoses Not on filedocumented in this encounter Additional Health Concerns Assessment Noted Time PHQ-9 Depression Total Score: 4 10/21/19 23 9:37 AM EST documented as of this encounter Care Teams Streets And Buildings Decorator Relationship Specialty Start Date End Date Anne Caballero MD [address] [place] [address] PCP - General Family Medicine 07/30/12 documented as of this encounter
--- OUTSIDE RECORDS SUMMARY | 2024-10-18 14:23 | XMS_ITS | Encounter Summary ---
Author Organization [employer] Address [address] [facility] [address] 7t [place] [address] Care Team Providers Care Park Recreation Manager Name Role Phone Anne Caballero MD Primary Care Provider [phone] Reason for Visit * Reason Comments Routine Cleaning Encounter Details Date Type Department Care Team (Late st Contact Info) Description 10/07/2024 10:00 AM EST Office Visit [facility] ADULT DENTAL [address] [place] [address] Eddie Rodriguez Dental calculus (Primary Dx) Social [...] Timeout Date: 10/07/24, Timeout Time: 1005 Location: [facility] Tooth: Maxilla and Mandible Procedure: Prophylaxis Verified the above with patient, licensed investment sales assistant, and provider. Confirmed via patient's chart, intraorally and by radiographs. Prepress Supervisor: not applicable Medical Hx: Vitals: Blood pressure [...] patient including brushing technique and flossing. Recommendations: [place] two times daily, modified purdy technique, Floss daily Recall Frequency: 6 mo NV: 6mr Hygienist: Eddie Rodriguez RDH documented in this encounter Plan of Treatment Upcoming Encounters Date Type Department Care Team (Late st Contact Info) Description 04/15/2025 10:00 AM EDT Office Visit [facility] ADULT DENTAL [address] [place] [address] Eddie Rodriguez Scheduled Orders Name Type Priority [...] documented as of this encounter Care Teams Park Recreation Manager Relationship Specialty Start Date End Date Anne Caballero MD [address] [place] [address] PCP - General Family Medicine 07/30/12 documented as of this encounter
--- OUTSIDE RECORDS SUMMARY | 2024-10-18 14:23 | XMS_ITS | Encounter Summary ---
Author Organization [employer] Address [address] [facility] 7t [place] [address] Care Team Providers Care Film Crew Member Name Role Phone Anne Caballero MD Primary Care Provider [phone] Encounter Details Date Type Department Care Team ([facility] Contact Info) Description 01/27/2023 Abstract [facility] CHC MED & PEDS [address] [place], [place] [phone] Anne Caballero MD 505 [place] [address] Social History Tobacco Use Types Packs/Day Years [...] 10:00 AM EDT Office Visit [facility] CHC ADULT DENTAL [address] [place] [address] Eddie Rodriguez documented as of this encounter Visit Diagnoses Not on filedocumented in this encounter Additional Health Concerns Assessment Noted Time PHQ-9 Depression Total Score: 4 10/21/19 23 9:37 AM EST documented as of this encounter Care Teams Film Crew Member Relationship Specialty Start Date End Date Anne Caballero MD [address] [place] [address] PCP - General Family Medicine 07/30/12 documented as of this encounter
--- OUTSIDE RECORDS SUMMARY | 2024-10-18 14:23 | XMS_ITS | Encounter Summary ---
Author Organization [employer] Address [address] [place] [address] 7t [place] [address] Care Team Providers Care C D Stripper Name Role Phone Anne Caballero MD Primary Care Provider [phone] Reason for Referral * Imaging (Routine) - Closed Specialty Diagnoses / Procedures Referred By Contac t Referred To Contact Radiology Diagnoses Posterior chest pain Chronic right shoulder pain Procedures US Abdomen Limited Sebastián Arireta MD [address] [place] [address] Phone: tel: fax: [address] Phone: tel: fax: Referral ID Status Reason Start Date Expiration Date Visits Re quested Visits Authorized [id number] Closed 10/14/2024 10/14/2025 1 1 Reason for Visit * Reason Comments Shoulder Pain Right side, pain and itchiness Encounter Details Date Type Department Care Team (Late st Contact Info) Description 10/14/2024 3:00 PM EST Office Visit [facility] [address] [place] [phone] Sebastián Arrieta MD [address] [place] [phone] Posterior chest pain (Primary Dx); Chronic right [...] in this encounter Progress Notes * Sebastián Arrieta MD - 10/14/2024 3:00 PM EST Images from the original note were not included. Subjective Patient ID: Juana Lopez is a 69 y.o. female. Here with RESORT DESK CLERK. HPI Juana had onset > 1 month [...] PM EST Incoming TC from Kenyatta at [facility] Radiology regarding message below. Per Kenyatta, molecular technologist, on CT can only see to adrenal gland unless gallbladder is sitting on adrenal gland. RN verbally informed Dr. Arrieta. TC placed to [facility] Radiology per verbal request per Dr. Arrieta regarding if Radiology can review recentCT chest done at [facility] and visualize/findings gallbladder. RN verbally spoke with Maria C, whom reports message would be sent regarding this request. This RN provided [facility] Radiology department with [facility]'s direct extension. RN will verbally inform Dr. Arrieta. documented in this encounter Plan of Treatment Upcoming Encounters Date Type Department Care Team (Late st Contact Info) Description 04/15/2025 10:00 AM EDT Office Visit [facility] ADULT DENTAL [address] [place] [address] Eddie Rodriguez Scheduled Orders Name Type Priority Associated Diagnoses Orde r Schedule D-Dimer, Quantitative Lab Routine Posterior chest pain [...] pain documented in this encounter Results * XR Chest 2 Views (10/14/2024 5:00 PM EST) Anatomical Region Laterality Modality Chest Radiographic Roxana ging 10/14/2024 5:00 PM EST Narrative 10/15/2024 10:57 AM EST ? [facility] ?[address] ?[place] [address] ?XRay Report ? Signed ? Patient: Juana Lopez ?MR#: [id number] ?? 32 ? : 1955 ?Acct:[id number] ? Age/Sex: 69 / F ?ADM Date: 10/14/24 ? Loc: HO.XRAY ? Attending Dr: Sebastián Arrieta MD ? Ordering Physician: SEBASTIÁN ARRIETA MD ?? Date of Service: 10/14/24 ?? Procedure(s): XR chest 2V ?? Accession Number(s): [id number] ? cc: SEBASTIÁN ARRIETA MD; Anne Caballero [...] acute process. ? Electronically signed by: ??Devin Bel MD ??10/15/2024 10:50 AM EST RP ? Dictated By: ?Bel,Devin S MD ? Signed By: ?<Electronically signed by Devin S Bel, MD in OV> ?10/15/24 1050 ? DD/ 1700 ? TD/TT: 10/14/24 170 ? Roofer Applicator: MANUEL ? Procedure Note Donotuseinterpreter, Image - 10/15/[address] [address] XRay Report Signed Patient: Fabian Lopez#: [id number] 32 : 1955cct:[id number] Age/Sex: 69 / FADM Date: 10/14/24 Loc: HO.[place] Attending Dr: Sebastián Arrieta MD Ordering Physician: SEBASTIÁN ARRIETA MD Date of Service: 10/14/24 Procedure(s): XR chest 2V Accession Number(s): [id number] cc: SEBASTIÁN ARRIETA MD; Anne Caballero MD [...] Devin Staples MD 10/15/2024 10:50 AM EST Dictated By: Devin Staples MD Signed By: <Electronically signed by Devin Staples MD in OV> 10/15/24 1050 DD/ 1700 TD/TT: 10/14/241704 Roofer Applicator: MANUEL Sebastián Arrieta MD IMG XR PROCEDURES Final Result * Basic Metabolic Panel (10/14/2024 4:27 PM EST) Sodium 138 135 - 145 mmol/L [facility] Potassium 4.4 3.3 - 5.1 mmol/L [facility] Chloride 103 96 - 108 mmol/L [facility] Carbon Dioxide 26 22 - 29 mmol/L [facility] Anion Gap 13 12 - 20 [facility] Urea Nitrogen (BUN) 15 9 - 16 mg/dL [facility] Creatinine, Serum 1.02 0.5 - 1.4 mg/dL [facility] Estimated Glomerular Filt Rate 53 [facility] Comment:Chronic Kidney Disea se: Estimated GFR < 60 mL/min/1.11h5Qujsbd Kidney Disease: Estimated GFR < 15 mL/min/1.73m2 Glucose 104 60 - 115 mg/dL [facility] Calcium 10.2 8.4 - 10.2 mg/dL [facility] Blood Venous blood specimen / Unknown 10/14/2024 4:27 PM EST 10/14/2024 4:27 PM EST us Sebastián Arrieta MD LAB BLOOD ORDERABLES Final Resul t [facility] [address] [place] [address] [phone] documented in this encounter Visit Diagnoses Diagnosis Posterior chest pain- Primary Chronic right shoulder pain Pain in joint, shoulder region documented in this encounter Additional Health Concerns Assessment Noted Time PHQ-9 Depression Total Score: 4 10/21/19 23 9:37 AM EST documented as of this encounter Care Teams C D Stripper Relationship Specialty Start Date End Date Anne Caballero MD [address] [place] [address] PCP - General Family Medicine 07/30/12 documented as of this encounter
--- OUTSIDE RECORDS SUMMARY | 2024-10-18 14:23 | XMS_ITS | Encounter Summary ---
Author Organization [employer] Address [address] [place] [address] 7t [place] [address] Care Team Providers Care Death Clearance Coordinator Name Role Phone Anne Caballero MD Primary Care Provider [phone] Reason for Visit * Reason Comments Med Refill Encounter Details Date Type Department Care Team ([facility] Contact Info) Description 01/30/2023 Refill [facility] MED & PEDS [address] [place], [place] [phone] Anne Caballero MD [address] [place] [address] Social History Tobacco Use Types Packs/Day Years [...] Description 04/15/2025 10:00 AM EDT Office Visit [facility] CHC ADULT DENTAL [address] [place] [address] Eddie Rodriguez documented as of this encounter Visit Diagnoses Not on filedocumented in this encounter Additional Health Concerns Assessment Noted Time PHQ-9 Depression Total Score: 4 10/21/19 23 9:37 AM EST documented as of this encounter Care Teams Death Clearance Coordinator Relationship Specialty Start Date End Date Anne Caballero MD [address] [place] [address] PCP - General Family Medicine 07/30/12 documented as of this encounter
--- OUTSIDE RECORDS SUMMARY | 2024-10-18 14:23 | XMS_ITS | Encounter Summary ---
Author Organization [employer] Address [address] [facility] [address] 7t [place] [address] Care Team Providers Care Heading Machine Operator Name Role Phone Anne Caballero MD Primary Care Provider [phone] Reason for Visit * Reason Onset Date Comments FYI 12/11/2023 Encounter Details Date Type Department Care Team ([facility] st Contact Info) Description 12/11/2023 Telephone [facility] MEDICINE [address] [place] [address] Anne Caballero MD [address] [place], [place] [phone] FYI Social History Tobacco Use Types Packs/Day [...] 3:26 PM EDT Tc from Jerica at [facility] calling to inform the Provider the patient was discharged from [facility] on 11/28 documented in this encounter Plan of Treatment Upcoming Encounters Date Type Department Care Team (Late st Contact Info) Description 04/15/2025 10:00 AM EDT Office Visit [facility] ADULT DENTAL [address] [place] [address] Eddie Rodriguez documented as of this encounter Visit Diagnoses Not on filedocumented in this encounter Additional Health Concerns Assessment Noted Time PHQ-9 Depression Total Score: 4 10/21/19 23 9:37 AM EST documented as of this encounter Care Teams Heading Machine Operator Relationship Specialty Start Date End Date Anne Caballero MD [address] [place] [address] PCP - General Family Medicine 07/30/12 documented as of this encounter
== END 2024-10-18 12:47 | disposition home or self-care (01) ==
LOC: HO.HMGCX 12:46
PROVIDERS: PCP Student in an Organized Health Care Education/Training Program; Visit Provider Emergency Medicine
DX: R07.89 Other chest pain (principal); M25.511 Pain in right shoulder; G89.29 Other chronic pain
CPT/HCPCS: 76705

== ENCOUNTER → 2024-10-18 12:58 | Outpatient (BNV) | payer OTHER, SELFPAY | PROVIDERS: PCP Student in an Organized Health Care Education/Training Program; Visit Provider Radiology Diagnostic Radiology | DX: R10.9 Unspecified abdominal pain (principal) | CPT/HCPCS: 76705 ==

== ENCOUNTER 2024-10-22 13:25 | Outpatient (REF) | payer OTHER, SELFPAY ==
--- OUTSIDE RECORDS SUMMARY | 2024-10-22 16:15 | XMS_ITS | Encounter Summary ---
Author Organization [employer] Address [address] [facility] 7t [place] [address] Care Team Providers Care Regulatory Agency Director Name Role Phone Anne Caballero MD Primary Care Provider [phone] Reason for Visit * Reason Onset Date Comments Med Refill 03/13/2024 Encounter Details Date Type Department Care Team ([facility] st Contact Info) Description 03/13/2024 Refill [facility] CHC MED & PEDS [address] [place] [address] Anne Caballero MD [address] [place] [address] Chronic obstructive pulmonary disease, unspecified COPD type [...] Visit [facility] ADULT DENTAL [address] [place] [address] Eddie Rodrgiuez documented as of this encounter Visit Diagnoses Diagnosis Chronic obstructive pulmonary disease, unspecified COPD type (CMS/HCC) documented in this encounter Additional Health Concerns Assessment Noted Time PHQ-9 Depression Total Score: 4 10/21/19 23 9:37 AM EST documented as of this encounter Care Teams Regulatory Agency Director Relationship Specialty Start Date End Date Anne Caballero MD [address] [place] [address] PCP - General Family Medicine 07/30/12 documented as of this encounter
--- OUTSIDE RECORDS SUMMARY | 2024-10-22 16:16 | XMS_ITS | Encounter Summary ---
Author Organization [employer] Address [address] [place] [address] 7t [place] [address] Care Team Providers Care Management Trainee Program Stores Name Role Phone Anne Caballero MD Primary Care Provider [phone] Reason for Visit * Reason Comments Med Refill Encounter Details Date Type Department Care Team ([facility] st Contact Info) Description 11/03/2022 Refill [facility] MED & PEDS [address] [place], [place] [phone] Anne Caballero MD [address] [place] [address] Chronic obstructive pulmonary disease, unspecified COPD type [...] Upcoming Encounters Date Type Department Care Team ([facility] st Contact Info) Description 04/15/2025 10:00 AM EDT Office Visit [facility] ADULT DENTAL [address] [place] [address] Eddie Rodriguez documented as of this encounter Visit Diagnoses Diagnosis Chronic obstructive pulmonary disease, unspecified COPD type (CMS/HCC) documented in this encounter Additional Health Concerns Assessment Noted Time PHQ-9 Depression Total Score: 4 10/21/19 23 9:37 AM EST documented as of this encounter Care Teams Management Trainee Program Stores Relationship Specialty Start Date End Date Anne Caballero MD [address] [place] [address] PCP - General Family Medicine 07/30/12 documented as of this encounter
--- OUTSIDE RECORDS SUMMARY | 2024-10-22 16:16 | XMS_ITS | Encounter Summary ---
Author Organization [employer] Address [address] [place] [address] 7t [place] [address] Care Team Providers Care Database Marketing Manager Name Role Phone Anne Caballero MD Primary Care Provider [phone] Encounter Details Date Type Department Care Team (Late st Contact Info) Description 07/29/2022 Orders Only [facility] [address] [place], [place] [phone] Hannah Berger LPN Social History Tobacco Use [...] 10:00 AM EDT Office Visit [facility] CHC ADULT DENTAL [address] [place] [address] Eddie Rodriguez documented as of this encounter Visit Diagnoses Not on filedocumented in this encounter Care Teams Database Marketing Manager Relationship Specialty Start Date End Date Anne Caballero MD [address] [place] [address] PCP - General Family Medicine 07/30/12 documented as of this encounter
--- OUTSIDE RECORDS SUMMARY | 2024-10-22 16:16 | XMS_ITS | Encounter Summary ---
Author Organization [facility] Address [address] [place] [address] Phone Care Team Providers Care Sociology Faculty Member Name Role Phone Anne Caballero MD Primary Care Provider [phone] Encounter Details Date Type Department Care Team (Late st Contact Info) Description 03/29/2022 Documentation Only [facility] [address] [place] [address] Priscila Collins MD Social History Tobacco [...] on filedocumented in this encounter Care Teams Sociology Faculty Member Relationship Specialty Start Date End Date Anne Caballero MD [address] [place] [address] PCP - General Family Medicine 02/21/22 documented as of this encounter
--- OUTSIDE RECORDS SUMMARY | 2024-10-22 16:16 | XMS_ITS | Encounter Summary ---
Author Organization [employer] Address [address] [place] [address] 7t [place] [address] Care Team Providers Care Ground Operations Crew Member Name Role Phone Anne Caballero MD Primary Care Provider [phone] Encounter Details Date Type Department Care Team (Latest Contact Info) Description 11/13/2018 Abstract [facility] CONVERSIONS Dental, Provider, DDS Social History [...] Description 04/15/2025 10:00 AM EDT Office Visit [facility] CHC ADULT DENTAL [address] [place] [address] Eddie Rodriguez documented as of this encounter Visit Diagnoses Not on filedocumented in this encounter Care Teams Ground Operations Crew Member Relationship Specialty Start Date End Date Anne Caballero MD [address] [place] [address] PCP - General Family Medicine 07/30/12 documented as of this encounter
--- OUTSIDE RECORDS SUMMARY | 2024-10-22 16:16 | XMS_ITS | Encounter Summary ---
Author Organization [employer] Address [address] [facility] 7t [place] [address] Care Team Providers Care Shipfitters Supervisor Name Role Phone Anne Caballero MD Primary Care Provider [phone] Encounter Details Date Type Department Care Team ([facility] st Contact Info) Description 10/21/2024 Telephone [facility] [address] [place], [place] [phone] Sebastián Hunt MD [address] [place] [address] Social History Tobacco Use Types Packs/Day Years [...] encounter Miscellaneous Notes * Telephone Encounter - Pia Berger RN - 10/21/2024 4:37 PM EDT TC placed to pt regarding message below. Pt verbalized understanding. Pt reports she is feeling better with the pain and declines PT referral at this time. In regards to D-Dimer, pt reports lab called her Monday and she inquired if she can have US done at [facility], said yes, requested blood work also and when was there, they said there was no order. Pt reports she can go to [facility] for lab order print out to get lab completed. No concerns expressed at this time. Pt to F/U as needed. ----- Message from Sebastián Hunt MD sent at 10/21/2024 4:24 PM EDT ----- Please let Juana know that her abd US was read as normal. Still haven't received d-dimer lab testresult. If she still has pain, would she like to be referred to PT? Thanks. Alvarado documented in this encounter Plan of Treatment Upcoming Encounters Date Type Department Care Team (Late st Contact Info) Description 04/15/2025 10:00 AM EDT Office Visit [facility] ADULT [facility]ENT[facility] [address] [place] [address] Eddie Rodriguez documented as of this encounter Visit Diagnoses Not on filedocumented in this encounter Additional Health Concerns Assessment Noted Time PHQ-9 Depression Total Score: 4 10/21/19 23 9:37 AM EST documented as of this encounter Care Teams Shipfitters Supervisor Relationship Specialty Start Date End Date Anne Caballero MD [address] [place] [address] PCP - General Family Medicine 07/30/12 documented as of this encounter
--- OUTSIDE RECORDS SUMMARY | 2024-10-22 16:16 | XMS_ITS | Clinical Summary ---
Author Organization [employer] Address [address] [place] [address] 7t [place] [address] Care Team Providers Care Test Deskman Name Role Phone Anne Caballero MD Primary Care Provider [phone] Allergies No known active allergies Medications Fluticasone [...] Encounters Date Type Department Care Team Description 10/21/2024 Telephone [facility] [address] [place] [address] Sebastián Arrieta MD 10/16/2024 Telephone [facility] MEDICINE [address] [place], [place] [phone] Diana Rojo, RN Results 10/14/2024 3:00 PM EST Office Visit [facility] [address] [place] [address] Sebastián Arrieta MD Posterior chest pain (Primary Dx); Chronic right shoulder pain 10/14/2024 Telephone [facility] MED & PEDS [address] [place], [place] [phone] Anne Caballero MD Nurse Triage 10/07/2024 10:00 AM EST Office Visit [facility] ADULT DENTAL [address] [place], [place] [phone] Eddie Rodriguez Dental calculus (Primary Dx) 09/03/2024 11:00 AM EST Office Visit [facility] [address] [place], [place] [phone] Killian Rodriguez MD Seborrheic keratosis (Primary Dx); [...] 10:00 AM EDT Office Visit [facility] CHC ADULT DENTAL [address] [place] [address] Eddie Rodriguez Health Maintenance Due Date Last Done Comments [...] 10/21/2023 10/20/2022, 10/21/19 23 COVID-19 Vaccine ( season) 2024 11/10/2020, 10/08/2020 SDOH Screening 12/28/2024 [...] Procedure Name Priority Date/Time Associated Diagnosis Comments US ABDOMEN LIMITED Routine 10/21/2024 2: 55 PM EDT Posterior chest pain Chronic right shoulder pain XR CHEST 2 VIEWS Routine 10/14/2024 5:00 [...] Recently Relevant to Health Maintenance Results * US Abdomen Limited (10/21/2024 2:55 PM EDT) Anatomical Region Laterality Modality Abdomen Ultrasound 10/21/2024 2:55 PM EDT Narrative 10/21/2024 2:56 PM EDT ? [facility] ?[address] ? [place] [address] ? Ultrasound Report ? Signed ? Patient: Jessica,Juana ?MR#: [id number] ?? 34 ? : 1955 ?Acct:[id number] ? Age/Sex: 69 / F ?ADM Date: 10/18/24 ? Loc: HO.HMGCX ? Attending Dr: Sebastián Arrieta MD ? Ordering Physician: SEBASTIÁN ARRIETA MD ?? Date of Service: 10/18/24 ?? Procedure(s): US abdomen limited ?? Accession Number(s): [id number] ? cc: SEBASTIÁN ARRIETA MD; Anne Caballero MD ? CLINICAL HISTORY: referred pain from biliary colic ? US abdomen limited. ? COMPARISON: None ? Technique: Real time sonographic imaging, including color-flow imaging, ?? was performed by the teletray operator. Multiple sales representative malt liquors static images ?? were saved for review. ? FINDINGS: ?? The visualized aorta and inferior vena cava are normal caliber. ?? The visualized portions of the pancreas appear normal. ? The liver has normal echotexture. Hepatic cyst within the left lobe ?? measuring 1.0 x 0.8 x 1.3 cm. Hepatic cyst within the right lobe measuring ?? 4.6 x 3.2 x 3.8 cm. The main portal vein is antegrade. ? The gallbladder is normal in size. No cholelithiasis or sludge identified. ?? There is a negative sonographic Mccann's sign. ?? Gallbladder wall: 2 mm, normal. ?? Common bile duct: 7 mm, normal. ? Right kidney: ?? Cortical medullary differentiation is maintained. Normal color flow by ?? Doppler. ?? Right renal simple cyst at the superior pole measuring 1.2 x 0.9 x 1.2 cm. ?? No hydronephrosis. ?? Right kidney length: 9.6 cm ? No free intraperitoneal fluid identified. ? IMPRESSION: ?? 1. No cause for patient's symptoms identified. No evidence of ?? cholecystitis. No evidence of right renal obstruction. ? This document has been electronically signed by: Alfonzo Briones MD on ?? 10/21/2024 14:55:11 ? Dictated By: ?Alfonzo Briones MD ? Signed By: ?<Electronically signed by Alfonzo Briones MD in OV> ?10/21/241455 ? DD/ 54 ? TD/TT: 10/21/24 1455 ? Quality Assurance/R&D Lab Technician: ? Procedure Note Donotuseinterpreter, Image - 10/21/2024 [facility] [address] [place] [address] [place] [address] Ultrasound Report Signed Patient: Fabian Lopez#: [id number] 34 : 4Acct:[id number] Age/Sex: 69 / FADM Date: 10/18/24 [facility] Dr: Sebastián Arrieta MD Ordering Physician: SEBASTIÁN ARRIETA MD Date of Service: 10/18/24 Procedure(s): US abdomen limited Accession Number(s): [id number] cc: SEBASTIÁN ARRIETA MD; Anne Caballero MD CLINICAL HISTORY: referred pain from biliary colic US abdomen limited. COMPARISON: None Technique: Real time sonographic imaging, including color-flow imaging, was performed by the teletray operator. Multiple sales representative malt liquors static images were saved for review. FINDINGS: The visualized aorta and inferior vena cava are normal caliber. The visualized portions of the pancreas appear normal. The liver has normal echotexture. Hepatic cyst within the left lobe measuring 1.0 x 0.8 x 1.3 cm. Hepatic cyst within the right lobe measuring 4.6 x 3.2 x 3.8 cm. The main portal vein is antegrade. The gallbladder is normal in size. No cholelithiasis or sludge identified. There is a negative sonographic Mccann's sign. Gallbladder wall: 2 mm, normal. Common bile duct: 7 mm, normal. Right kidney: Cortical medullary differentiation is maintained. Normal color flow by Doppler. Right renal simple cyst at the superior pole measuring 1.2 x 0.9 x 1.2 cm. No hydronephrosis. Right kidney length: 9.6 cm No free intraperitoneal fluid identified. IMPRESSION: 1. No cause for patient's symptoms identified. No evidence of cholecystitis. No evidence of right renal obstruction. This document has been electronically signed by: Alfonzo Briones MD on 10/21/2024 14:55:11 Dictated By: Alfonzo Briones MD Signed By: <Electronically signed by Alfonzo Briones MD in OV> 10/21/24 1456 DD/ 54 TD/TT: 10/21/241454 Quality Assurance/R&D Lab Technician: us Sebastián Arrieta MD IMG US PROCEDURES Final Result * XR Chest 2 Views (10/14/2024 5:00 PM EST) Anatomical Region Laterality Modality Chest Radiographic Roxana ging 10/14/2024 5:00 PM EST Narrative 10/15/2024 10:57 AM EST ? [facility] ?[address] ?[place] [address] ?XRay Report ? Signed ? Patient: Jessica,Juana ?MR#: [id number] ?? 34 ? : 1955 ?Acct:[id number] ? Age/Sex: 69 / F ?ADM Date: 10/14/24 ? Loc: HO.XRAY ? Attending Dr: Sebastián Arrieta MD ? Ordering Physician: SEBASTIÁN ARRIETA MD ?? Date of Service: 10/14/24 ?? Procedure(s): XR chest 2V ?? Accession Number(s): [id number] ? cc: SEBASTIÁN ARRIETA MD; Anne Caballero [...] 1050 ? DD/ 1700 ? TD/TT: 10/14/24 1705 ? Quality Assurance/R&D Lab Technician: MSM ? Procedure Note Donotuseinterpreter, Image - 10/15/[address] [address] XRay Report Signed Patient: Fabian Lopez#: [id number] 34 : 4Acct:[id number] Age/Sex: 69 / FADM Date: 10/14/24 Loc: HO.XRAY Attending Dr: Sebastián Arrieta MD Ordering Physician: SBEASTIÁN ARRIETA MD Date of Service: 10/14/24 Procedure(s): XR chest 2V Accession Number(s): [id number] cc: SEBASTIÁN ARRIETA MD; Anne Caballero MD [...] in OV> 10/15/24 1050 DD/ 1700 TD/TT: 10/14/24 1705 Quality Assurance/R&D Lab Technician: [facility] us Sebastián Arrieta MD IMG XR PROCEDURES Final Result * Basic Metabolic Panel (10/14/2024 4:27 PM EST) Sodium 138 135 - 145 mmol/L [facility] Potassium 4.4 3.3 - 5.1 mmol/L [facility] Chloride 103 96 - 108 mmol/L [facility] Carbon Dioxide 26 22 - 29 mmol/L [facility] Anion Gap 13 12 - 20 [facility] Urea Nitrogen (BUN) 15 9 - 16 mg/dL [facility] Creatinine, Serum 1.02 0.5 - 1.4 mg/dL [facility] Estimated Glomerular Filt Rate 53 [facility] Comment:Chronic Kidney Disea se: Estimated GFR < 60 mL/min/1.89j8Jutdem Kidney Disease: Estimated GFR < 15 mL/min/1.73m2 Glucose 104 60 - 115 mg/dL [facility] Calcium 10.2 8.4 - 10.2 mg/dL [facility] Blood Venous blood specimen / Unknown 10/14/2024 4:27 PM EST 10/14/2024 4:27 PM EST us Sebastián Arrieta MD LAB BLOOD ORDERABLES Final Resul t [facility] [address] [place] [address] [phone] * Cryotherapy, skin lesion (09/03/2024 12:41 [...] No ?Instructions and paperwork completed: Yes ?? [place] protocol: ??Procedure explained and questions answered to [...] ??Tolerated well, no immediate complications us Killian MACE PROCEDURE ORDERABLES F inal Result * BI Mammogram Screening Tomosynthesis Bilateral (06/27/2024 3:41 PM EST) Anatomical Region Laterality Modality Breast Bilateral Mammography 06/27/2024 3:41 PM EST Narrative 07/05/2024 12:50 PM EST ? [facility] ? [address] ?[place] [address] ? Mammography Report ? Signed ? Patient: Jessica,Juana ?MR#: [id number] ?? 32 ? : 1955 ?Acct:[id number] ? Age/Sex: 68 / F ?ADM Date: 06/27/24 ? Loc: HO.MAMMO ? Attending Dr: Anne Caballero MD ? Ordering Physician: Anne Caballero MD ?Results: 1Negati ?? ve ? Date of Service: 06/27/24 ?Follow Up: 1 Year From Orig ?? inal Mammogram ? Procedure(s): MM tomosynthesis screening BI ?? Accession Number(s): [id number] ? cc: Anne Caballero MD ? EXAMINATION: [...] DD/ 1541 ? TD/TT: 06/27/24 1554 ? Quality Assurance/R&D Lab Technician: ? Procedure Note Robbin, Jomar - 07/05/2024 [facility] [address] [place] [address] [place] [address] Mammography Report Signed Patient: Fabian Lopez#: [id number] 32 : 4Acct:[id number] Age/Sex: 68 / FADM Date: 06/27/24 Loc: [facility] Attending Dr: Anne Caballero MD Ordering Physician: Anne Caballero MDResults: 1Negati ve Date of Service: 06/27/24Follow Up: 1 Year From Orig inal Mammogram Procedure(s): MM tomosynthesis screening BI Accession Number(s): [id number] cc: Anne Caballero MD EXAMINATION: MM SCREENING [...] 07/05/24 1247 DD/ 1541 TD/TT: 06/27/24 1554 Quality Assurance/R&D Lab Technician: Anne Caballero MD IM BI PROCEDURES Final Result * Cologuard?? colon cancer screening (06/12/2024 12:30 PM EDT) Cologuard Result Negative Negative 06/20/20 10:31 AM EST [facility] (CLIA #:[id number]) Comment: NEGATIVE TEST RESULT. A negative Cologuard [...] cancer. ??Following a negative Cologuard result, the [place] Cancer Society and U.S. Multi-Society Task Force screening guidelines recommend a Cologuard re-screening interval of 3 years. References: [place] Cancer [employer] Guideline for Colorectal Cancer Screening: https://www.cancer.org/cancer/embqc-cugkmj-fnferc/gmwthezwa-rvmenlghz-trrnxvj/ac s-rec ommendations.html.; Brandon DK, Mark YE, Cathleen GerardK, Colorectal Cancer Screening: Recommendations for Physicians and Patients from the U.S. Multi-Society Task Force on Colorectal Cancer Screening , Am J Gastroenterology 2017; 112:1708-2708. TEST DESCRIPTION: Composite algorithmic analysis of stool [...] were screened with both Cologuard and colonoscopy. (Imperiale T. et al, N Engl J Med 2014;370(14):9034-9366.) Cologuard may produce a false negative or false positive result (no colorectal cancer or precancerous polyp present at colonoscopy follow up). A negative Cologuard test result does not guarantee the absence of CRC or advanced adenoma (pre-cancer). The current Cologuard screening interval is every 3 years. ([place] Cancer Society and U.S. Multi-Society Task Force). Cologuard performance data in a 10,000 patient pivotal study using colonoscopy as the reference method can be accessed at the following location: www.Svbtle.GlobaTrek/results. Additional description of the Cologuard test process, warnings and precautions can be found at www.Kwan Mobilerd.GlobaTrek. Stool specimen (specimen) 06/12/2024 12:30 PM EDT 06/14/2024 1:04 PM EDT us Anne Caballero MD LAB MOLECULAR DIAGNOSTICS ORDERA BLES Final Result [facility] (CLIA #:[id number]) [address] [place] [address], * (ABNORMAL) Lipid Panel, Standard (09/29/2023 11:51 AM EST) Triglycerides 89 <150 mg/dL [facility] Comment:Desirable Triglyceri de: less than 150 mg/dLBorderline High Triglyceride 150-199 mg/dLHigh Triglyceride: 200-499 mg/dLVery High Triglyceride: greater than or equal to 5OO mg/dL Cholesterol 203(H) <200 mg/dL [facility] Comment:Desirable Cholestero l: less than 200 mg/dLBorderline High Cholesterol: 200-239 mg/dLHigh Cholesterol: greater than 239 mg/dL LDL Cholesterol Calculated 114(H) <100 mg/dL [facility] Comment:Desirable LDL: less than 100 mg/dLNear Optimal/Above Optimal LDL: 110- 129 mg/dLBorderline High LDL: 130-159 mg/dLHigh LDL: 160-189 mg/dLVery High LDL: greater than or equal to 190 mg/dL HDL Cholesterol 72 >40 mg/dL [facility] Comment:Desirable HDL: great er than 40 mg/dL Note: This HDL assay may give artificially low results in patients with liver disease. Blood Venous blood specimen / Unknown 09/29/2023 11:51 AM EST 09/29/2023 1:17 PM EST us Anne Caballero MD LAB BLOOD ORDERABLES Final Resul t [facility] [address] [place] [address] [phone] from Last 3 Months or Most Recently Relevant to Health Maintenance Insurance [address] [place] [address] [facility] Care Teams Test Deskman Relationship Specialty Start Date End Date Anne Caballero MD [address] [place] [address] PCP - General Family Medicine 07/30/12
--- OUTSIDE RECORDS SUMMARY | 2024-10-22 16:16 | XMS_ITS | Encounter Summary ---
Author Organization [employer] Address [address] [place] [address] 7t [place] [address] Care Team Providers Care Survey Research Teacher Name Role Phone Anne Caballero MD Primary Care Provider [phone] Reason for Visit * Reason Comments Med Refill Encounter Details Date Type Department Care Team ([facility] Contact Info) Description 11/03/2022 Refill [facility] MED & PEDS [address] [place], [place] [phone] Anne Caballero MD [address] [place] [address] Chronic obstructive pulmonary disease, unspecified COPD type [...] Upcoming Encounters Date Type Department Care Team ([facility] Contact Info) Description 04/15/2025 10:00 AM EDT Office Visit [facility] ADULT DENTAL [address] [place] [address] Eddie Rodriguez documented as of this encounter Visit Diagnoses Diagnosis Chronic obstructive pulmonary disease, unspecified COPD type (CMS/HCC) documented in this encounter Additional Health Concerns Assessment Noted Time PHQ-9 Depression Total Score: 4 10/21/19 23 9:37 AM EST documented as of this encounter Care Teams Survey Research Teacher Relationship Specialty Start Date End Date Anne Caballero MD [address] [place] [address] PCP - General Family Medicine 07/30/12 documented as of this encounter
--- OUTSIDE RECORDS SUMMARY | 2024-10-22 16:16 | XMS_ITS | Encounter Summary ---
Author Organization [employer] Address [address] [facility] 7t [place] [address] Care Team Providers Care Mobile Phlebotomist Name Role Phone Anne Caballero MD Primary Care Provider [phone] Reason for Visit * Reason Onset Date Comments Nurse Triage 10/14/2024 Encounter Details Date Type Department Care Team ([facility] st Contact Info) Description 10/14/2024 Telephone [facility] [address] [place] [address] Anne Caballero MD [address] [place] [address] Nurse Triage Social History Tobacco Use Types [...] (Adult) Protocol-Based Disposition: See in [facility] walk in today for evaluation. Video visit [...] 10:00 AM EDT Office Visit [facility] CH[facility] ADULT DENTAL [address] [place] [address] Eddie Rodriguez documented as of this encounter Visit Diagnoses Not on filedocumented in this encounter Additional Health Concerns Assessment Noted Time PHQ-9 Depression Total Score: 4 10/21/19 23 9:37 AM EST documented as of this encounter Care Teams Mobile Phlebotomist Relationship Specialty Start Date End Date Anne Caballero MD [address] [place] [address] PCP - General Family Medicine 07/30/12 documented as of this encounter
--- OUTSIDE RECORDS SUMMARY | 2024-10-22 16:16 | XMS_ITS | Clinical Summary ---
Author Organization [facility] Address [address] [facility] [address] [place] [address] Phone Care Team Providers Care Copy Chief Name Role Phone Anne Caballero MD Primary Care Provider [phone] Allergies No known active allergies Medications amitriptyline [...] patient's age to complete this topic Insurance [id number] ONE CARE DUAL SNP ([id number]) [facility] ONE CARE DUAL SNP ([id number]) Care Teams Copy Chief Relationship Specialty Start Date End Date Anne Caballero MD [address] [place] [address] PCP - General Family Medicine 02/21/22
--- OUTSIDE RECORDS SUMMARY | 2024-10-22 16:16 | XMS_ITS | Encounter Summary ---
Author Organization [employer] Address [address] [facility] [address] [place] [address] Care Team Providers Care Steward/Stewardess Deck Name Role Phone Anne Caballero MD Primary Care Provider [phone] Reason for Visit * Reason Comments Routine Cleaning Encounter Details Date Type Department Care Team (Late st Contact Info) Description 10/07/2024 10:00 AM EST Office Visit [facility] ADULT DENTAL [address] [place] [address] Eddie Rodriguez Dental calculus (Primary Dx) Social [...] Timeout Date: 10/07/24, Timeout Time: 1005 Location: [facility] Tooth: Maxilla and Mandible Procedure: Prophylaxis Verified the above with patient, assistant professor of german, and provider. Confirmed via patient's chart, intraorally and by radiographs. Plastics Factory Worker: not applicable Medical Hx: Vitals: Blood pressure [...] patient including brushing technique and flossing. Recommendations: [place] two times daily, modified purdy technique, Floss daily Recall Frequency: 6 mo NV: 6mr Hygienist: Eddie Rodriguez RDH documented in this encounter Plan of Treatment Upcoming Encounters Date Type Department Care Team (Late st Contact Info) Description 04/15/2025 10:00 AM EDT Office Visit [facility] ADULT DENTAL [address] [place] [address] Eddie Rodriguez Scheduled Orders Name Type Priority [...] documented as of this encounter Care Teams Steward/Stewardess Deck Relationship Specialty Start Date End Date Anne Caballero MD [address] [place] [address] PCP - General Family Medicine 07/30/12 documented as of this encounter
--- OUTSIDE RECORDS SUMMARY | 2024-10-22 16:16 | XMS_ITS | Encounter Summary ---
Author Organization [employer] Address [address] [place] [address] 7t [place] [address] Care Team Providers Care Melter Assistant Name Role Phone Anne Caballero MD Primary Care Provider [phone] Encounter Details Date Type Department Care Team (Latest Contact Info) Description 04/22/2021 Abstract [facility] CONVERSIONS Dental, Provider, DDS Social History [...] Description 04/15/2025 10:00 AM EDT Office Visit [facility] CHC ADULT DENTAL [address] [place] [address] Eddie Rodriguez documented as of this encounter Visit Diagnoses Not on filedocumented in this encounter Care Teams Melter Assistant Relationship Specialty Start Date End Date Anne Caballero MD [address] [place] [address] PCP - General Family Medicine 07/30/12 documented as of this encounter
--- OUTSIDE RECORDS SUMMARY | 2024-10-22 16:16 | XMS_ITS | Encounter Summary ---
Author Organization [employer] Address [address] [facility] [address] 7t [place] [address] Care Team Providers Care Community Administrator Name Role Phone Anne Caballero MD Primary Care Provider [phone] Reason for Visit * Reason Onset Date Comments Hospital Follow-up 10/10/2023 Encounter Details Date Type Department Care Team ([facility] st Contact Info) Description 10/10/2023 Telephone [facility] MEDICINE [address] [place] [address] Anne Caballero MD [address] [place], [place] [phone] Hospital Follow-up Social History Tobacco Use Types [...] from pt requesting a HDF appt. Hospital: [facility] Date of admission: 10/03/2023 Discharge date: 10/05/2023 Diagnosed: COPD documented in this encounter Plan of Treatment Upcoming Encounters Date Type Department Care Team (Late st Contact Info) Description 04/15/2025 10:00 AM EDT Office Visit [facility] ADULT DENTAL [address] [place] [address] Eddie Rodriguez documented as of this encounter Visit Diagnoses Not on filedocumented in this encounter Additional Health Concerns Assessment Noted Time PHQ-9 Depression Total Score: 4 10/21/19 23 9:37 AM EST documented as of this encounter Care Teams Community Administrator Relationship Specialty Start Date End Date Anne Caballero MD [address] [place] [address] PCP - General Family Medicine 07/30/12 documented as of this encounter
--- OUTSIDE RECORDS SUMMARY | 2024-10-22 16:16 | XMS_ITS | Encounter Summary ---
Author Organization [employer] Address [address] [facility] [address] [address] 7t [place] [address] Care Team Providers Care Pony Worker Name Role Phone Anne Caballero MD Primary Care Provider [phone] Reason for Visit * Reason Onset Date Comments FYI 01/02/2024 Encounter Details Date Type Department Care Team ([facility] Contact Info) Description 01/02/2024 Telephone [facility] MEDICINE 230 [place] [address] Anne Caballero MD [address] [place], [place] [phone] FYI Social History Tobacco Use Types Packs/Day [...] - 01/02/2024 1:19 PM EDT Tc from [facility] Care calling to inform PCP pt will be discharge today 01/01 from PT documented in this encounter Plan of Treatment Upcoming Encounters Date Type Department Care Team (Late st Contact Info) Description 04/15/2025 10:00 AM EDT Office Visit [facility] ADULT DENTAL [address] [place] [address] Eddie Rodriguez documented as of this encounter Visit Diagnoses Not on filedocumented in this encounter Additional Health Concerns Assessment Noted Time PHQ-9 Depression Total Score: 4 10/21/19 23 9:37 AM EST documented as of this encounter Care Teams Pony Worker Relationship Specialty Start Date End Date Anne Caballero MD [address] [place] [address] PCP - General Family Medicine 07/30/12 documented as of this encounter
--- OUTSIDE RECORDS SUMMARY | 2024-10-22 16:16 | XMS_ITS | Encounter Summary ---
Author Organization [employer] Address [address] [place] [address] 7t [place] [address] Care Team Providers Care Punch Molder Name Role Phone Anne Caballero MD Primary Care Provider [phone] Encounter Details Date Type Department Care Team (Latest Contact Info) Description 06/07/2022 Abstract [facility] CONVERSIONS Dental, Provider, DDS Social History [...] Description 04/15/2025 10:00 AM EDT Office Visit [facility] CHC ADULT DENTAL [address] [place] [address] Eddie Rodriguez documented as of this encounter Visit Diagnoses Not on filedocumented in this encounter Care Teams Punch Molder Relationship Specialty Start Date End Date Anne Caballero MD [address] [place] [address] PCP - General Family Medicine 07/30/12 documented as of this encounter
--- OUTSIDE RECORDS SUMMARY | 2024-10-22 16:16 | XMS_ITS | Encounter Summary ---
Author Organization [employer] Address [address] [facility] [address] 7t [place] [address] Care Team Providers Care Guest Relation Officer Name Role Phone Anne Caballero MD Primary Care Provider [phone] Reason for Visit * Reason Onset Date Comments FYI 12/11/2023 Encounter Details Date Type Department Care Team ([facility] st Contact Info) Description 12/11/2023 Telephone [facility] MEDICINE 230 [place] [address] Anne Caballero MD [address] [place], [place] [phone] FYI Social History Tobacco Use Types Packs/Day [...] FYI below. * Telephone Encounter - Tian Cortse - 12/11/2023 3:26 PM EDT Tc from Jerica at [facility] calling to inform the Provider the patient was discharged from [facility] on 11/28 documented in this encounter Plan of Treatment Upcoming Encounters Date Type Department Care Team (Late st Contact Info) Description 04/15/2025 10:00 AM EDT Office Visit [facility] ADULT DENTAL [address] [place] [address] Eddie Rodriguez documented as of this encounter Visit Diagnoses Not on filedocumented in this encounter Additional Health Concerns Assessment Noted Time PHQ-9 Depression Total Score: 4 10/21/19 23 9:37 AM EST documented as of this encounter Care Teams Guest Relation Officer Relationship Specialty Start Date End Date Anne Caballero MD [address] [place] [address] PCP - General Family Medicine 07/30/12 documented as of this encounter
--- OUTSIDE RECORDS SUMMARY | 2024-10-22 16:16 | XMS_ITS | Encounter Summary ---
Author Organization [employer] Address [address] [facility] 7t [place] [address] Care Team Providers Care Aged Or Disabled Carer Name Role Phone Anne Caballero MD Primary Care Provider [phone] Reason for Visit * Reason Onset Date Comments Results 10/16/2024 Encounter Details Date Type Department Care Team ([facility] Contact Info) Description 10/16/2024 Telephone [facility] MEDICINE 230 [place] [address] Diana Rojo, LUZ MARINA [address] [place], [place] [phone] Results Social History Tobacco Use Types Packs/Day [...] not run. Advised to get done at [facility]. Pt reports that that is where [...] she needs anything. Lab requisition faxed to [facility] lab Please let Juana know that her CXR was read as no acute findings. Her BMP was normal, but the d-dimer wasn't done. Could she return to [facility] lab for d-dimer? (it is not done at [facility] lab). I ordered an abd US at [facility]. Thanks Alvarado documented in this encounter Plan of Treatment Upcoming Encounters Date Type Department Care Team (Late st Contact Info) Description 04/15/2025 10:00 AM EDT Office Visit [facility] CHC ADULT DENTAL [address] [place] [address] Eddie Rodriguez documented as of this encounter Visit Diagnoses Not on filedocumented in this encounter Additional Health Concerns Assessment Noted Time PHQ-9 Depression Total Score: 4 10/21/19 23 9:37 AM EST documented as of this encounter Care Teams Aged Or Disabled Carer Relationship Specialty Start Date End Date Anne Caballero MD [address] [place] [address] PCP - General Family Medicine 07/30/12 documented as of this encounter
--- OUTSIDE RECORDS SUMMARY | 2024-10-22 16:16 | XMS_ITS | Encounter Summary ---
Author Organization [employer] Address [address] [place] [address] 7t [place] [address] Care Team Providers Care Intellectual Property Counsel Name Role Phone Anne Caballero MD Primary Care Provider [phone] Encounter Details Date Type Department Care Team ([facility] Contact Info) Description 12/30/2022 Orders Only [facility] MED & PEDS [address] [place] [address] Shruti Piña LPN Social History Tobacco Use [...] 10:00 AM EDT Office Visit [facility] ADULT DENTAL [address] [place] [address] Eddie Rodriguez documented as of this encounter Visit Diagnoses Not on filedocumented in this encounter Additional Health Concerns Assessment Noted Time PHQ-9 Depression Total Score: 4 10/21/19 23 9:37 AM EST documented as of this encounter Care Teams Intellectual Property Counsel Relationship Specialty Start Date End Date Anne Caballero MD [address] [place] [address] PCP - General Family Medicine 07/30/12 documented as of this encounter
--- OUTSIDE RECORDS SUMMARY | 2024-10-22 16:16 | XMS_ITS | Encounter Summary ---
Author Organization [employer] Address [address] [facility] 7t [place] [address] Care Team Providers Care Marketing Associate Name Role Phone Anne Caballero MD Primary Care Provider [phone] Reason for Visit * Reason Onset Date Comments Med Refill 10/20/2023 Encounter Details Date Type Department Care Team ([facility] st Contact Info) Description 10/20/2023 Refill [facility] CHC MED & PEDS 505 [place] [address] Killian Rodriguez MD 505 [place] [address] Chronic obstructive pulmonary disease, unspecified COPD type [...] 10:00 AM EDT Office Visit [facility] ADULT DENTAL [address] [place] [address] Eddie Rodriguez documented as of this encounter Visit Diagnoses Diagnosis Chronic obstructive pulmonary disease, unspecified COPD type (CMS/HCC) documented in this encounter Additional Health Concerns Assessment Noted Time PHQ-9 Depression Total Score: 4 10/21/19 23 9:37 AM EST documented as of this encounter Care Teams Marketing Associate Relationship Specialty Start Date End Date Anne Caballero MD [address] [place] [address] PCP - General Family Medicine 07/30/12 documented as of this encounter
--- OUTSIDE RECORDS SUMMARY | 2024-10-22 16:17 | XMS_ITS | Encounter Summary ---
Author Organization [employer] Address [address] [place] [address] 7t [place] [address] Care Team Providers Care Grades 1 Thru 6 Home Teacher Name Role Phone Anne Caballero MD Primary Care Provider [phone] Reason for Referral * Imaging (Routine) - Closed Specialty Diagnoses / Procedures Referred By Contac t Referred To Contact Radiology Diagnoses Posterior chest pain Chronic right shoulder pain Procedures US Abdomen Limited Sebastián Arrieta MD [address] [place] [address] Phone: tel: fax: [address] Phone: tel: fax: Referral ID Status Reason Start Date Expiration Date Visits Re quested Visits Authorized [id number] Closed 10/14/2024 10/14/2025 1 1 Reason for Visit * Reason Comments Shoulder Pain Right side, pain and itchiness Encounter Details Date Type Department Care Team (Late st Contact Info) Description 10/14/2024 3:00 PM EST Office Visit [facility] [address] [place] [address] [phone] Sebastián Arrieta MD [address] [place] [address] [phone] Posterior chest pain (Primary Dx); Chronic right [...] is a 69 y.o. female. Here with [employer]. HPI Juana had onset > 1 month [...] PM EST Incoming TC from Kenyatta at [facility] Radiology regarding message below. Per Kenyatta, commercial leasing agent, on CT can only see to adrenal gland unless gallbladder is sitting on adrenal gland. RN verbally informed Dr. Arrieta. TC placed to [facility] Radiology per verbal request per Dr. Arrieta regarding if Radiology can review recentCT chest done at [facility] and visualize/findings gallbladder. RN verbally spoke with Maria C, whom reports message would be sent regarding this request. This RN provided [facility] Radiology department with [facility]'s direct extension. RN will verbally inform Dr. Arrieta. documented in this encounter Plan of Treatment Upcoming Encounters Date Type Department Care Team (Late st Contact Info) Description 04/15/2025 10:00 AM EDT Office Visit [facility] ADULT DENTAL [address] [place] [address] Eddie Rodriguez Scheduled Orders Name Type Priority Associated Diagnoses Orde r Schedule D-Dimer, Quantitative Lab Routine Posterior chest pain Expected: 10/14/2024 (Approximate), Expires: 10/14/2025 documented as of this encounter Procedures Procedure Name Priority Date/Time Associated Diagnosis Comments US ABDOMEN LIMITED Routine 10/21/2024 2: 55 PM EDT Posterior chest pain Chronic right shoulder pain XR CHEST 2 VIEWS Routine 10/14/2024 5:00 PM EST Posterior chest pain BASIC METABOLIC PANEL Routine 10/14/2024 4:27 PM EST Posterior chest pain documented in this encounter Results * US Abdomen Limited (10/21/2024 2:55 PM EDT) Anatomical Region Laterality Modality Abdomen Ultrasound 10/21/2024 2:55 PM EDT Narrative 10/21/2024 2:56 PM EDT ? [facility] ?[address] ? [place] [address] ? Ultrasound Report ? Signed ? Patient: Juana Lopez ?MR#: [id number] ?? 32 ? : 1955 ?Acct:[id number] ? Age/Sex: 69 / F ?ADM Date: 10/18/24 ? Loc: HO.HMGCX ? Attending Dr: Sebastián Arrieta MD ? Ordering Physician: SEBASTIÁN ARRIETA MD ?? Date of Service: 10/18/24 ?? Procedure(s): US abdomen limited ?? Accession Number(s): [id number] ? cc: SEBASTIÁN ARRIETA MD; Anne Caballero MD ? CLINICAL HISTORY: referred pain from biliary colic ? US abdomen limited. ? COMPARISON: None ? Technique: Real time sonographic imaging, including color-flow imaging, ?? was performed by the digital forensic examiner. Multiple retail service representative static images ?? were saved for review. [...] signed by Alfonzo Briones MD in OV> ?10/21/24 1456 ? DD/ 54 ? TD/TT: 10/21/241454 ? Inventory Representative: ? Procedure Note Robbin, Image - 10/21/2024 [facility] [place] [address] Ultrasound Report Signed Patient: Fabian Lopez#: [id number] 34 : 4Acct:[id number] Age/Sex: 69 / FADM Date: 10/18/24 Loc: HO.HMGCX Attending Dr: Sebastián Arrieta MD Ordering Physician: SEBASTIÁN ARRIETA MD Date of Service: 10/18/24 Procedure(s): US abdomen limited Accession Number(s): [id number] cc: SEBASTIÁN ARRIETA MD; Anne Caballero MD CLINICAL HISTORY: referred pain from biliary colic US abdomen limited. COMPARISON: None Technique: Real time sonographic imaging, including color-flow imaging, was performed by the digital forensic examiner. Multiple retail service representative static images were saved for review. FINDINGS: [...] Briones MD in OV> 10/21/24 1456 DD/ TD/TT: 10/21/24 145 Inventory Representative: Sebastián Arrieta MD [employer]ML[facility] US PROCEDURES Final Result * XR Chest 2 Views (10/14/2024 5:00 PM EST) Anatomical Region Laterality Modality Chest Radiographic Roxana ging 10/14/2024 5:00 PM EST Narrative 10/15/2024 10:57 AM EST ? [facility] ?[address] ?[place] [address] ?XRay Report ? Signed ? Patient: Jessica,Juana ?MR#: [id number] ?? 32 ? : 1955 ?Acct:[id number] ? Age/Sex: 69 / F ?ADM Date: 03/03/25 ? Loc: HO.XRAY ? Attending Dr: Sebastián Arrieta MD ? Ordering Physician: SEBASTIÁN ARRIETA MD ?? Date of Service: 10/14/24 ?? Procedure(s): XR chest 2V ?? Accession Number(s): [id number] ? cc: SEBASTIÁN ARRIETA MD; Anne Caballero [...] by Devin Staples MD in OV> ?10/15/24 105 ? DD/ 1700 ? TD/TT: 10/14/24 1705 ? Inventory Representative: MSM ? Procedure Note Jomar Siegel - 10/15/[address] [address] XRay Report Signed Patient: Fabian Lopez#: [id number] 32 : 1955cct:[id number] Age/Sex: 69 / FADM Date: 10/14/24 Loc: HO.XRAY Attending Dr: Sebastián Arrieta MD Ordering Physician: SEBASTIÁN ARRIETA MD Date of Service: 10/14/24 Procedure(s): XR chest 2V Accession Number(s): [id number] cc: SEBASTIÁN ARRIETA MD; Anne Caballero MD [...] OV> 10/15/24 1050 DD/ 1700 TD/TT: 10/14/241704 Inventory Representative: MANUEL Sebastián Arrieta MD IMG XR PROCEDURES Final Result * Basic Metabolic Panel (10/14/2024 4:27 PM EST) Sodium 138 135 - 145 mmol/L [facility] Potassium 4.4 3.3 - 5.1 mmol/L [facility] Chloride 103 96 - 108 mmol/L [facility] Carbon Dioxide 26 22 - 29 mmol/L [facility] Anion Gap 13 12 - 20 [facility] Urea Nitrogen (BUN) 15 9 - 16 mg/dL [facility] Creatinine, Serum 1.02 0.5 - 1.4 mg/dL [facility] Estimated Glomerular Filt Rate 53 [facility] Comment:Chronic Kidney Disea se: Estimated GFR < 60 mL/min/[id number] Kidney Disease: Estimated GFR < 15 mL/min/1.73m2 Glucose 104 60 - 115 mg/dL [facility] Calcium 10.2 8.4 - 10.2 mg/dL [facility] Blood Venous blood specimen / Unknown 10/14/2024 4:27 PM EST 10/14/2024 4:27 PM EST Sebastián Arrieta MD LAB BLOOD ORDERABLES Final Resul t [facility] [address] [place], [place] [phone] documented in this encounter Visit Diagnoses Diagnosis Posterior chest pain- Primary Chronic right shoulder pain Pain in joint, shoulder region documented in this encounter Additional Health Concerns Assessment Noted Time PHQ-9 Depression Total Score: 4 10/21/19 23 9:37 AM EST documented as of this encounter Care Teams Grades 1 Thru 6 Home Teacher Relationship Specialty Start Date End Date Anne Caballero MD [address] [place] [address] PCP - General Family Medicine 07/30/12 documented as of this encounter
--- OUTSIDE RECORDS SUMMARY | 2024-10-22 16:17 | XMS_ITS | Encounter Summary ---
Author Organization [employer] Address [address] [facility] 7t [place] [address] Care Team Providers Care Animal Assisted Therapist Name Role Phone Anne Caballero MD Primary Care Provider [phone] Encounter Details Date Type Department Care Team ([facility] Contact Info) Description 01/27/2023 Abstract [facility] CHC MED & PEDS [address] [place], [place] [phone] Anne Caballero MD [address] [place] [address] Social History Tobacco Use Types Packs/Day Years [...] 04/15/2025 10:00 AM EDT Office Visit [facility] CHC ADULT DENTAL [address] [place] [address] Eddie Rodriguez documented as of this encounter Visit Diagnoses Not on filedocumented in this encounter Additional Health Concerns Assessment Noted Time PHQ-9 Depression Total Score: 4 10/21/19 23 9:37 AM EST documented as of this encounter Care Teams Animal Assisted Therapist Relationship Specialty Start Date End Date Anne Caballero MD [address] [place] [address] PCP - General Family Medicine 07/30/12 documented as of this encounter
--- OUTSIDE RECORDS SUMMARY | 2024-10-22 16:17 | XMS_ITS | Encounter Summary ---
Author Organization [employer] Address [address] [place] [address] 7t [place] [address] Care Team Providers Care Software Engineer Backend Name Role Phone Anne Caballero MD Primary Care Provider [phone] Reason for Visit * Reason Comments Med Refill Encounter Details Date Type Department Care Team ([facility] Contact Info) Description 01/30/2023 Refill [facility] MED & PEDS [address] [place], [place] [phone] Anne Caballero MD 505 [place] [address] Social History Tobacco Use Types Packs/Day Years [...] Description 04/15/2025 10:00 AM EDT Office Visit [facility] CHC ADULT DENTAL [address] [place] [address] Eddie Rodriguez documented as of this encounter Visit Diagnoses Not on filedocumented in this encounter Additional Health Concerns Assessment Noted Time PHQ-9 Depression Total Score: 4 10/21/19 23 9:37 AM EST documented as of this encounter Care Teams Software Engineer Backend Relationship Specialty Start Date End Date Anne Caballero MD [address] [place] [address] PCP - General Family Medicine 07/30/12 documented as of this encounter
--- OUTSIDE RECORDS SUMMARY | 2024-10-22 16:17 | XMS_ITS | Encounter Summary ---
Author Organization [employer] Address [address] [place] [address] 7t [place] [address] Care Team Providers Care Door Installer Name Role Phone Anne Caballero MD Primary Care Provider [phone] Encounter Details Date Type Department Care Team (Late st Contact Info) Description 09/08/2022 Orders Only [facility] MED & PEDS [address] [place] [address] Lainey Lee LPN Social History Tobacco Use [...] 10:00 AM EDT Office Visit [facility] ADULT DENTAL [address] [place] [address] Eddie Rodriguez documented as of this encounter Visit Diagnoses Not on filedocumented in this encounter Care Teams Door Installer Relationship Specialty Start Date End Date Anne Caballero MD [address] [place] [address] [place] [address] PCP - General Family Medicine 07/30/12 documented as of this encounter
--- OUTSIDE RECORDS SUMMARY | 2024-10-22 16:17 | XMS_ITS | Encounter Summary ---
Author Organization [employer] Address [address] [place] [address] 7t [place] [address] Care Team Providers Care Auto Crane Driver Name Role Phone Anne Caballero MD Primary Care Provider [phone] Reason for Visit * Reason Onset Date Comments Results 01/27/2023 Encounter Details Date Type Department Care Team ([facility] Contact Info) Description 01/27/2023 Telephone [facility] CHC MED & PEDS [address] [place] [address] Anne Caballero MD [address] [place] [address] Results Social History Tobacco Use Types Packs/Day [...] 04/15/2025 10:00 AM EDT Office Visit [facility] ADULT DENTAL [address] [place] [address] Eddie Rodriguez documented as of this encounter Visit Diagnoses Not on filedocumented in this encounter Additional Health Concerns Assessment Noted Time PHQ-9 Depression Total Score: 4 10/21/19 23 9:37 AM EST documented as of this encounter Care Teams Auto Crane Driver Relationship Specialty Start Date End Date Anne Caballero MD [address] [place] [address] PCP - General Family Medicine 07/30/12 documented as of this encounter
[2024-10-22 17:04] LABS: D Dimer High Sensitivity < 150 NG/ML
== END 2024-10-22 13:26 | disposition home or self-care (01) ==
LOC: HO.HHCL 13:25
PROVIDERS: Visit Provider Emergency Medicine
DX: R07.89 Other chest pain (principal)
CPT/HCPCS: 36415; 85379

== ENCOUNTER 2025-01-07 12:48 | Outpatient (AMB) | payer OTHER, SELFPAY ==
--- OUTSIDE RECORDS SUMMARY | 2025-01-07 12:51 | XMS_ITS | Encounter Summary ---
Author Organization [employer] Address [address] [facility] [address] [place] [address] Care Team Providers Care C D Stripper Name Role Phone Anne Caballero MD Primary Care Provider [phone] Reason for Visit * Reason Onset Date Comments Med Refill 03/13/2024 Encounter Details Date Type Department Care Team ([facility] st Contact Info) Description 03/13/2024 Refill [facility] [address] [place], [place] [id number] Anne Caballero MD [address] [place] [address] Chronic obstructive pulmonary disease, unspecified COPD type [...] enough money to get more: Never True 05/ Transportation Answer Date Recorded In the past [...] 10:00 AM EDT Office Visit [facility] [address] [place] [address] Eddie Rodriguez documented as of this encounter Visit Diagnoses Diagnosis Chronic obstructive pulmonary disease, unspecified COPD type (CMS/HCC) documented in this encounter Additional Health Concerns Assessment Noted Time PHQ-9 Depression Total Score: 4 10/21/19 23 9:37 AM EST documented as of this encounter Care Teams C D Stripper Relationship Specialty Start Date End Date Anne Caballero MD [address] [place] [id number] PCP - General Family Medicine 07/30/12 documented as of this encounter
--- NOTE | 2025-01-07 12:57 | MHC.OFFVIS ---
Vital Signs 01/07/25 12:59 Height 5 ft 6 in Weight 125 lb 2 oz BMI 20.2 BP 102/70 Blood Pressure Location Rt brachial Position Sitting Pulse 95 Pulse Source Pulse Oximeter Pulse Oximetry (%) 95 Oxygen Delivery Method Room Air Intake Visit Reasons: Ct Scan 03/06 review results Allergies No Known Allergies [No Known Allergies*] Allergy (Verified 01/07/25 13:05) HPI HPI Ct Scan 03/06 review results: Details: Juana is a pleasant 69 year old female current minimal smoker with 30+ pack year history, with underlying severe COPD, HTN and HLD. She was last seen in this office 03/2024 and presents to discuss chest CT performed at [facility] during hospital admission for COPD exacerbation. Findings were consistent with infectious process, bronchial thickening with multiple waxing and waning mucoid impacted bronchi and mild bronchiectasis. She was treated with ceftriaxone, azithromycin and prednisone. She reported resolution of symptoms however developed productive cough with yellow sputum approximately 1 month ago with associated wheezing and dyspnea. Denies fevers or chills. She has continued to use Trelegy and DuoNeb.albuterol MDI PRN. PFSH Medical History COPD (chronic obstructive pulmonary disease) Surgical History H/O total hysterectomy Hx of colonoscopy (~05/2019) History of tubal ligation Family History Mother Breast CA Social History (Updated 01/07/25 @ 13:04 by Zahida Concepcion CMA) Household Members: None Household Members Other:: goes to significant other house 3x a week Housing: Apartment Housing Other:: 2 family house Do you presently have visiting nurse or other home services: Yes ([employer]) Alcohol intake: current Alcohol intake frequency: does not drink Patient Tobacco Use Status: Current everyday Tobacco user Tobacco use type: Cigarette Cigarette Packs Per Day: 0.25 Cigarettes Per Day: 5 e-Cigarette/Vaping Use: Never Used Second Hand Smoke Exposure: No Substance Use Type: Marijuana Advance Directives Date on File: 11/16/23 service: No Current occupational status: retired Female Reproductive History Menstrual Age of Menarche: 10 Review of Systems Const Denies chills, Denies excessive sweating, Denies fever(s), Denies headache(s) and Denies night sweats Eyes Denies dry eyes, Denies irritation and Denies itchy eyes ENT Reports Normal hearing present, Denies headache(s), Denies nasal congestion, Denies nasal discharge, Denies post nasal drip and Denies sore throat Card Denies chest pain, Denies chest pain at rest, Denies chest pain with activity, Denies claudication, Denies leg edema, Denies orthopnea and Denies paroxysmal nocturnal dyspnea Resp Denies excessive phlegm production, Denies pain on inspiration, Denies pain with cough and Denies stridor Musc Denies myalgias Neuro Reports Normal hearing present and Denies headache(s) Endo Denies excessive sweating Bao/Lymph Denies lymphadenopathy Aller/Immun Denies itchy eyes and Denies seasonal rhinorrhea Physical Exam Vital Signs: Last Vital Signs Pulse 95 01/07/25 12:59 BP 102/70 01/07/25 12:59 Pulse Ox 95 01/07/25 12:59 Oxygen Delivery Method Room Air 01/07/25 12:59 BMI result Body Mass Index 20.2 Const General: cooperative, healthy appearing, comfortable, no acute distress, well developed and alert Orientation/consciousness: patient oriented x3 Limitations: no limitations HEENT Head: Yes normal to inspection, Yes normocephalic and Yes atraumatic Ears: hearing grossly normal bilaterally and external ears normal Eyes General: appearance normal, both eyes and all related structures Eyelids: Yes eyelids normal Sclerae: sclerae normal EOM: EOMs intact bilaterally Neck Neck: Yes normal visual inspection and Yes no lymphadenopathy Lymphatic: no lymphadenopathy noted Chest Chest palpation & inspection: normal inspection of the chest Resp Effort & Inspection: normal respiratory effort, able to speak in complete sentences, no audible wheezes, no cough, no stridor, not tachypneic, no tripod positioning and no use of accessory muscles Auscultation: rhonchi, wheezes and diminished lung sounds Cardio Jugular venous distension: no JVD Rate: regular rate Rhythm: regular rhythm Skin Other: warm, dry General skin exam: no rashes or lesions noted Neuro General: patient oriented x3 Cranial nerves: Yes Normal hearing present Cognition (Neuro): normal cognition Gait exam (Neuro): Normal gait present Extrem General: Yes normal to inspection, Yes capillary refill normal, Yes no clubbing, cyanosis or edema and Yes no pedal edema Psych Appearance: grossly normal and well kempt Speech and movement: Normal speech and movement present and Clear speech present Affect: normal affect Attitude: cooperative Thought process: Normal thought process present Thought content: Normal thought content present Insight: Good insight present (Psych) Judgement: Good judgement present (Psych) Results Reviewed Results Reviewed: [address] [address] [address] Scan Report Signed Patient: Juana Lopez MR#: [id number] : 1955 Acct:[id number] Age/Sex: 68 / F ADM Date: 07/17/24 [facility] Attending Dr: Francisco Salgado MD Ordering Physician: Francisco Salgado MD Date of Service: 07/17/24 Procedure(s): CT chest wo IV con Accession Number(s): [id number] cc: Francisco Salgado MD; Anne Caballero MD~ EXAMINATION: CT CHEST WITHOUT CONTRAST CLINICAL INFORMATION: Shortness of breath, cough COMPARISON: 03/01/2024 TECHNIQUE: Multidetector volumetric CT imaging of the chest was done. Axial MIP volume rendering provided. Sagittal and coronal reformatted images were obtained. This CT examination was performed using dose optimization techniques as appropriate, variously including the following: *Automated exposure control *Adjustment of mA and/or kV according to patient size (this includes techniques or standardized protocols for targeted exams where dose is matched to indication/reason for exam; i.e. extremities or head) *Use of iterative reconstruction technique DLP: 186 mGy-cm FINDINGS: LUNGS: Redemonstration of bronchial wall thickening, with multiple waxing and waning mucoid impacted bronchi and mild bronchiectasis. PLEURA: No pleural effusion. MEDIASTINUM: No cardiomegaly. Aorta and pulmonary artery are normal in caliber. No mediastinal adenopathy. Lack of IV contrast limits evaluation for hilar adenopathy. CORONARY ARTERY CALCIFICATION: No coronary artery calcification appreciated. CHEST WALL/AXILLA: No axillary or internal mammary lymphadenopathy. UPPER ABDOMEN: Benign-appearing hepatic cysts are again noted. Nonobstructing left renal stone. OSSEOUS STRUCTURES: Degenerative changes of the spine. CT/CT chest wo IV con IMPRESSION: Redemonstration of bronchial wall thickening, with multiple waxing and waning mucoid impacted bronchi and mild bronchiectasis. Differential considerations include atypical mycobacterium infection. Electronically signed by: Sara Villafana MD 07/17/2024 07:46 PM EST Dictated By: Sara Villafana MD Signed By: <Electronically signed by Sara Villafana MD in OV> 07/17/241945 DD/ 00 TD/TT: 07/17/241900 Snuff Drier: Assessment & Plan Assessment & Plan (1) COPD (chronic obstructive pulmonary disease): Code(s): J44.9 - Chronic obstructive pulmonary disease, unspecified Category: Medical (2) Nicotine dependence, cigarettes, uncomplicated: Code(s): F17.210 - Nicotine dependence, cigarettes, uncomplicated Category: Medical (3) Bronchiectasis: Code(s): J47.9 - Bronchiectasis, uncomplicated Category: Medical Plan Will treat bronchitic symptoms with prednisone and zpak. She is aware to call if symptoms do not improve. Patient due for repeat chest CT for February 2025 to assess stability of prior pulmonary nodules <4mm and resolution of infectious process on CT 07/2024. Will send flutter valve to use after DuoNeb BID to facilitate mucous clearance. Order for nebulizer sent to [facility] as patient reports malfunctioning neb at home. Discussed smoking cessation and patient not ready to quit at this time. All questions were answered and patient is in agreement of plan. Will follow up to review results or sooner if needed. Medications: New prednisone 40 mg (2 x 20 mg) PO DAILY 10 tabs 0RF azithromycin For 250 mg dose pack: take 500 mg today (day 1), then 250 mg for 4 days (days 2-5) PO 6 tabs 0RF Refilled hzjgfoewqec-hrgqcnouq-elmjhadm 200-62.5-25 mcg (Trelegy Ellipta) 1 inh inhalation DAILY 60 ea 6RF ipratropium-albuterol 0.5 mg-3 mg(2.5 mg base)/3 mL 3 mL inhalation Q6H PRN 180 mL 6RF wheezing Coding Level of Care Code Est Pt Level 4 (08485) Diagnoses COPD (chronic obstructive pulmonary disease) J44.9 Nicotine dependence, cigarettes, uncomplicated F17.210 Bronchiectasis J47.9
[2025-01-07 12:59] VITALS: BP 102/70; PULSE 95; O2SAT 95; BMI 20.2
== END 2025-01-07 13:31 | disposition home or self-care (01) ==
LOC: HO.HPSW 12:49
PROVIDERS: PCP Student in an Organized Health Care Education/Training Program; Visit Provider Nurse Practitioner Family
DX: J44.9 Chronic obstructive pulmonary disease, unspecified (principal); F17.210 Nicotine dependence, cigarettes, uncomplicated; J47.9 Bronchiectasis, uncomplicated
CPT/HCPCS: 99214

== ENCOUNTER → 2025-01-07 12:48 | Outpatient (BNVA) | payer OTHER, SELFPAY | PROVIDERS: PCP Student in an Organized Health Care Education/Training Program; Visit Provider Nurse Practitioner Family | DX: J44.9 Chronic obstructive pulmonary disease, unspecified (principal); J47.9 Bronchiectasis, uncomplicated; F17.210 Nicotine dependence, cigarettes, uncomplicated | CPT/HCPCS: 99212 ==

== ENCOUNTER 2025-03-03 09:49 | Outpatient (REF) | payer OTHER, SELFPAY ==
--- NOTE | ~2025-03-03 | CT_ITS ---
CLINICAL HISTORY: F17.210 - Nicotine dependence, cigarettes, uncomplicated CT chest without contrast Comparison: CR/SR - XR CHEST 2 VIEWS - 10/14/24 16:[address]/REG/SR - CT CHEST WITHOUT IV CONTRAST - 07/17/24 18:55 EST Findings: The heart is normal size. The visualized thyroid and mediastinum are unremarkable. Moderate pulmonary emphysema. New nodular consolidation in the inferior aspect of the right middle lobe of the lung measuring 10 mm with surrounding ground-glass opacity. Follow-up chest CT in 1-3 months to exclude infectious or inflammatory process or atelectasis. Multiple hypodensities throughout the liver similar to previous exam. Unchanged 0.6 cm nonobstructive left nephrolithiasis. No acute fractures. IMPRESSION: New nodular consolidation in the inferior aspect of the right middle lobe of the lung measuring 10 mm with surrounding ground-glass opacity. Follow-up chest CT in 1-3 months to exclude infectious or inflammatory process or atelectasis. This document has been electronically signed by: Satnam Blanchard DO on 03/04/2025 11:11:04
--- OUTSIDE RECORDS SUMMARY | 2025-03-03 10:29 | XMS_ITS | Clinical Summary ---
Author Organization [facility] Address [address] [facility] [address] [place] [address] Phone Care Team Providers Care Bindery Manager Name Role Phone Anne Caballero MD Primary Care Provider Allergies No known active allergies Medications amitriptyline [...] 03/21/2022 Viral hepatitis C 03/21/2022 03/22/2022 Immunizations Immunization Administration Dates Next Due Influenza, Unspecified 06/17/2020,2017,08/22/2017,05/16/2016, [...] Comments Breast Cancer Screening 1955 Pneumococcal Vaccine: 50+ Years (1 of 2 - PCV) 1972 Colorectal Cancer Screening: Annual FOBT 2002 Colorectal Cancer Screening: Colonoscopy 2002 Colorectal Cancer Screening: Sigmoidoscopy 2002 Influenza Vaccine (#1) 2025 0, 07/06/2018, 08/22/2017, Additional history exists Hepatitis B Vaccine Aged Out No longe r eligible based on patient's age to complete this topic Insurance [id number] One [employer] Dual SNP ([id number]) [facility] One Care Dual SNP ([id number]) Care Teams Bindery Manager Relationship Specialty Start Date End Date Anne Caballero MD [address] [place] [phone] PCP - General Family Medicine 02/21/22
--- OUTSIDE RECORDS SUMMARY | 2025-03-03 10:29 | XMS_ITS | Data Portability ---
Author Organization [place] [employer] [facility], [facility] Address [address] [place] [address] Care Team Providers Care Railroad Hand Name Role Phone HIM [facility] OTHER [facility] Primary Care Provider [phone] Assessment Encounter Date Assessment Date Assessment LastModified by Organization Details LastModified Time 12/01/2024 12/01/2024 I have reviewed and agree with the assessment and plan as documented by the spray cementer. I provided real-time medical direction for this encounter and was immediately available to provide additional phone-based assistance as needed. History as noted in EMR and by spray cementer. I would add / emphasize: Pt w/ hx of COPD seen for presumed AECOPD. Wheezing on exam though afebrile and with no respiratory distress. No fevers. No CP. Productive cough. O2 sat on lower range of normal for COPD. No leg swelling or orthopnea to suggest cardiac etiology. Will treat for presumed AECOPD exacerbation w/ course of steroids, azithromycin, and increased usage of nebulizer. Patient would benefit from close pulmonology re-evaluation to ensure improvement and consider longer course of steroids (pt reports she sometimes requires prednisone tapers) pallfather Not available 12/01/2024 19:56:50 Plan of Treatment Reminders Order Date Submit Date Provider Last Modified By Organization Details Last Modified Time Details Appointments None recorded. Lab None recorded. Referral None recorded. Procedures None recorded. Surgeries None recorded. Imaging None recorded. Medication Orders azithromy ana 250 mg tablet 2024 025 [facility] [address] [place], [id number], 17:02:06 azithromy ana 250 mg tablet 2024 025 [facility], [address] [place], [id number], 5 17:02:04 prednison e 50 mg tablet 2024 025 [facility], [address] [place], [address], 5 17:02:06 prednison e 20 mg tablet 2024 025 [facility], [address] [place], [address], 5 17:02:04 ipratropi um 0.5 mg-albute rol 3 mg (2.5 mg base)/3 mL nebulizat ion soln 2024 025 [facility], [address] [place], [address], 5 17:02:04 Patient TargetsNo targets recorded. Patient InstructionsNo instructions recorded. Reason for Referral None Reported. Medical Equipment None Reported. Allergies No known drug allergies Medications Name Sig Start Date Stop Date Status Note LastModified by Organization Details LastModified Time celecoxib 200 mg capsule TAKE ONE CAPSULE BY MOUTH EVERY DAY active Not Available Not Available No t Available acetaminophe n 325 mg tablet TAKE 2 TABLETS BY MOUTH EVERY 4 HOURS NEEDED FOR PAIN active Not Available Not Available No t Available prednisone 10 mg tablet TAKE 4 TABLETS BY MOUTH DAILY FOR 3 DAYS, THEN 3 TABLETS FOR 3 DAYS, THEN 2 TABLETS FOR 3 DAYS, THEN 1 TABLET FOR 3 DAYS active Not Available Not Available No t Available nicotine 14 mg/24 hr daily transdermal patch APPLY ONE PATCH TO THE SKIN EVERY DAY active Not Available Not Available No t Available ipratropium 0.5 mg-albuterol 3 mg (2.5 mg base)/3 mL nebulization soln USE 1 VIAL 3 ML) INHALED VIA NEBULIZER EVERY 6 HOURS NEEDED FOR WHEEZING. active Not Available Not Available No t Available tizanidine 2 mg tablet TAKE ONE TABLET BY MOUTH EVERY 6 HOURS IF NEEDED FOR MUSCLE SPASM FOR UP TO 10 DAYS. active Not Available Not Available No t Available albuterol sulfate 2.5 mg/3 mL (0.083 %) solution for nebulization INHALE 1 VIAL 3 ML) BY NEBULIZATIO N ROUTE EVERY 4 TO 6 HOURS active Not Available Not Available No t Available cetirizine 10 mg tablet TAKE ONE TABLET BY MOUTH EVERY DAY active Not Available Not Available No t Available azithromycin 250 mg tablet TAKE 1 TABLET BY MOUTH ONCE DAILY FOR 4 DAYS. - TAKE WITH FOOD. active Not Available Not Available No t Available ibuprofen 800 mg tablet TAKE 1 TABLET BY MOUTH EVERY 8 HOURS active Not Available Not Available No t Available albuterol sulfate 1.25 mg/3 mL solution for nebulization INHALE THE CONTENTS OF 1 VIAL 3 ML) VIA NEBULIZER EVERY 4 HOURS NEEDED FOR WHEEZING active Not Available Not Available No t Available prednisone 20 mg tablet TAKE TWO TABLETS BY MOUTH EVERY DAY active Not Available Not Available No t Available dexamethason e 6 mg tablet TAKE 1 TABLET BY MOUTH EVERY DAY IN THE MORNING FOR 6 DAYS active Not Available Not Available No t Available simvastatin 10 mg tablet TAKE ONE TABLET BY MOUTH EVERY DAY IN THE EVENING active Not Available Not Available No t Available amlodipine 5 mg tablet TAKE ONE TABLET BY MOUTH EVERY DAY active Not Available Not Available No t Available ciprofloxaci n 500 mg tablet TAKE ONE TABLET BY MOUTH EVERY 12 HOURS active Not Available Not Available No t Available sulfamethoxa zole 800 mg-trimethop rim 160 mg tablet TAKE ONE TABLET BY MOUTH EVERY 12 HOURS. active Not Available Not Available No t Available acetaminophe n 500 mg tablet TAKE TWO TABLETS BY MOUTH EVERY 6 HOURS NEEDED FOR MODERATE PAIN OR FEVER FOR UP TO 25 DOSES. active Not Available Not Available No t Available alprazolam 0.25 mg tablet TAKE ONE TABLET BY MOUTH THREE TIMES A DAY NEEDED FOR ANXIETY active Not Available Not Available Not Available amitriptylin e 10 mg tablet TAKE ONE TABLET BY MOUTH DAILY AT BEDTIME active Not Available Not Available N ot Available phenazopyrid ine 100 mg tablet TAKE ONE TABLET BY MOUTH THREE TIMES A DAY AFTER MEALS NEEDED active Not Available Not Available No t Available prednisone 50 mg tablet TAKE ONE TABLET BY MOUTH EVERY DAY IN THE MORNING FOR 5 DAYS - PLEASE TAKE WITH FOOD. active Not Available Not Available N ot Available oxycodone 5 mg capsule TAKE 1 CAPSULE BY MOUTH EVERY 6 HOURS NEEDED FOR PAIN active Not Available Not Available No t Available ibuprofen 400 mg tablet TAKE ONE TABLET BY MOUTH EVERY 6 HOURS IF NEEDED FOR MODERATE PAIN OR FEVER FOR UP TO 30 DOSES. active Not Available Not Available No t Available nicotine 21 mg/24 hr daily transdermal patch APPLY ONE PATCH TO THE SKIN EVERY DAY active Not Available Not Available No t Available docusate sodium 100 mg capsule TAKE 1 CAPSULE BY MOUTH TWO TIMES A DAY NEEDED FOR CONSTIPATIO N active Not Available Not Available No t Available omeprazole 20 mg capsule,kristin yed release TAKE ONE CAPSULE BY MOUTH EVERY DAY active Not Available Not Available No t Available bisacodyl 5 mg tablet,delay ed release TAKE 2 TABLETS BY MOUTH ONCE FOR COLON PREP FOR 5 DAYS AND 2 TABLETS AT 12 P.M. THE DAY BEFORE COLONOSCOPY active Not Available Not Available Not Available lisinopril 10 mg-hydrochlo rothiazide 12.5 mg tablet TAKE ONE TABLET BY MOUTH EVERY DAY active Not Available Not Available No t Available albuterol sulfate HFA 90 mcg/actuatio n aerosol inhaler INHALE TWO PUFFS BY MOUTH EVERY 4 HOURS IF NEEDED FOR WHEEZING active Not Available Not Available No t Available hydroxyzine HCl 10 mg tablet TAKE ONE TABLET BY MOUTH EVERY DAY NEEDED FOR ANXIETY active Not Available Not Available No t Available loratadine 10 mg tablet TAKE ONE TABLET BY MOUTH EVERY DAY active Not Available Not Available No t Available amoxicillin 875 mg-potassium clavulanate 125 mg tablet TAKE ONE TABLET BY MOUTH TWICE A DAY active Not Available Not Available No t Available azithromycin 500 mg tablet TAKE ONE TABLET BY MOUTH EVERY DAY active Not Available Not Available No t Available Vitamin D3 25 mcg (1,000 unit) capsule TAKE ONE CAPSULE BY MOUTH EVERY MORNING active Not Available Not Available No t Available calcium 600 mg (as carbonate)-v itamin D3 10 mcg (400 unit) tablet TAKE ONE TABLET BY MOUTH EVERY DAY active Not Available Not Available No t Available ClearLax 17 gram/dose oral powder SEE ATTACHED DIRECTIONS active Not Available Not Available N ot Available Linzess 145 mcg capsule TAKE ONE CAPSULE BY MOUTH EVERY DAY IN THE MORNING active Not Available Not Available No t Available Breo Ellipta 200 mcg-25 mcg/dose powder for inhalation INHALE ONE PUFF BY MOUTH EVERY DAY AT THE SAME TIME EVERY DAY active Not Available Not Available No t Available Trelegy Ellipta 200 mcg-62.5 mcg-25 mcg powder for inhalation INHALE 1 INHALATION DAILY. active Not Available Not Available No t Available Vitals Date Recorded Respiratory rate Oxygen saturation Oxygen saturation in Arterial blood by Pulse oximetry Heart rate Body temperature Systolic And Diastolic Provider Name and Address Organization Details Last Updated DateTime 16 /min 91 % 91 % 90 /min 97.3 [degF] 149/88 mm[Hg] Not Available [facility] 14:27:16 Social History None recorded. Functional Status None recorded. Mental Status None recorded. Family History Nothing Reported. Medical History No medical history recorded. Gynecological HistoryNo gynecological history recorded. Obstetrics History GPAL:G 0 P 0 0 0 0 Past Encounters Encounter ID Performer Location Encounter Start Date Encounter Closed Date Diagnosis/Indication Diagnosis SNOMED-CT Code Diagnosis ICD10 Code Diagnosis Note [id number] Frank Clark MD [facility] [address] [place] [phone] 12/01/2024 14:27:14 12/02/2024 14:48:33 Acute exacerbation of chronic obstructive pulmonary disease 932613985 J44.1 Health Concerns Section Related Observation LastModified by Organization Detai ls LastModified Time None Recorded Concern Status LastModified by Organization Details LastModified Time None Recorded Advance Directives Directive None Recorded Payers Insurance Date Sequence Insurance Name Policy Number Policy Lance Covered Member ID Lance Member ID Guarantor Name 12/01/2024 1 [facility] - DOS PRIOR TO 2022 - DUAL ELIGIBLE (MEDICARE REPLACEMENT/ADV ANTAGE - HMO) Juana Lopez [id number] Juana Lopez 12/01/2024 1 [facility] - DOS ON OR AFTER 2022 - DUAL ELIGIBLE - SKILLED NURSING OPTIONS AND ONE CARE (MEDICARE REPLACEMENT/ADV ANTAGE - HMO) Juana Lopez [id number] Juana Lopez Notes Date Note Type Note Provider Name and Address Organization Details Recorded Time 12/01/2024 text/html [facility] Nurse Triage Notes (Sola Bahena): Reason For Request: Pt is experiencing head congestion>coughing up phlegm>ears are popping>cough, wheezing> Patient Reports: History of asthma, increased use of inhaler; COPD; Sputum increase ; Cough; Shortness of breath with exertion Denies: Increased work of breathing/labored with or without fever Unable to speak in full sentences without distress Discoloration of skin -cyanosis Needs to sleep sitting up, can t catch breath Shortness of breath in setting of confusion Cough, fever greater than 2 days Lower extremity swelling COVID Exposure Chief Complaints: Common Cold, Breathing Problems PMH: COPD/Asthma, Hypertension PMH Reviewed at 12/01/2024 Allergies Reviewed at 12/01/2024 Comments: Member called in complaining of increased congestion, coughing, and increased wheezing. Bringing up phlegm when coughing. Symptoms started on Monday- not getting better. Member has inhaler and nebulizer that she has been using with some effect. Denies chest pain and pain with breathing. Requesting visit for assessment. ELKIN RN verified identity via name/. Education provided on expected response time and the member was advised to monitor reported signs/symptoms. Member in agreement to seek emergency treatment if needed. Rajani Bahena RN Loan Associate Organization Information for Sebastián Bueno [employer] Legal Name: [facility] Address: [address] [place] [address], Picker: Harrison Nguyen MD [facility] No.: [id number] Loan Associate POC Test Results from Sebastián Bueno Rapid COVID antigen (14:30:01) COVID: - Rapid influenza antigen (14:30:02) Flu: - .................... .................... .................... .................... .................... .................... .................... . Loan Associate Note From MaciejzoniaSebastián: This 69-year-old female with a history including but not limited to COPD and HTN requested a visit today to address one week of worsening REILLY and cough producing yellow sputum. Patient uses albuterol nebulizers three times a day and Breo. Patient states last time she needed prednisone was in July 2024. Patient denies any chest pain, severe shortness of breath, dizziness, fevers, nausea, vomiting, diarrhea. Patient presents awake and alert, in no acute distress and speaking full sentences. Her vital signs are reasonably stable and she is afebrile. Nonfocal neurological exam. Normal gait. Diffuse expiratory wheezing. Abdomen is soft, nontender, nondistended. No lower extremity edema. Rapid COVID and flu testing are both negative. I treated with azithromycin 500 mg, prednisone 40 mg and a duo neb. We discussed the diagnostic uncertainty of home visits and the risk associated with this. In this case, the patient and I felt this to be an acceptable and reasonable amount of risk given the benefit of avoiding an ED visit. I provided education on the patient's prescriptions as well as additional OTC/supportive care therapy. 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 The patient was given the opportunity to ask questions and is agreeable to this plan. .................... .................... .................... .................... .................... .................... .................... . [facility] [place] Consulted: Frank Clark .................... .................... .................... .................... .................... .................... .................... . Disposition: Fulfilled Frank Clark MD [address], [place], [address], [employer] 12/01/2024 19:56:59 OBGyn Episode No OBEpisode recorded.
--- OUTSIDE RECORDS SUMMARY | 2025-03-03 10:29 | XMS_ITS | Encounter Summary ---
Author Organization [email or web address] Address [address] [place] [address] Care Team Providers Care Translator Deaf Name Role Phone Anne Caballero MD Primary Care Provider [phone] Reason for Visit * Reason Onset Date Comments Med Refill 03/13/2024 Encounter Details Date Type Department Care Team ([facility] st Contact Info) Description 03/13/2024 Refill [facility] [address], [place] [phone] Anne Caballero MD [address] [place] [address] Chronic obstructive pulmonary disease, unspecified COPD type [...] Care Team (Late st Contact Info) Description 03/06/2025 9:00 AM EDT Office Visit [facility] [address] [place] [address] Anne Caballero MD [address] [place] [address] 04/15/2025 10:00 AM EDT Office Visit [facility] ADULT DENTAL [address] [place] [address] Eddie Rodriguez documented as of this encounter Visit Diagnoses Diagnosis Chronic obstructive pulmonary disease, unspecified COPD type (CMS/HCC) documented in this encounter Additional Health Concerns Assessment Noted Time PHQ-9 Depression Total Score: 4 10/21/19 23 9:37 AM EST documented as of this encounter Care Teams Translator Deaf Relationship Specialty Start Date End Date Anne Caballero MD [address] [place] [address] PCP - General Family Medicine 07/30/12 documented as of this encounter
== END 2025-03-03 09:50 | disposition home or self-care (01) ==
LOC: HO.CT 09:49
PROVIDERS: PCP Student in an Organized Health Care Education/Training Program; Visit Provider Nurse Practitioner Family
DX: R91.8 Other nonspecific abnormal finding of lung field (principal); F17.210 Nicotine dependence, cigarettes, uncomplicated
CPT/HCPCS: 71250

== ENCOUNTER → 2025-03-03 09:51 | Outpatient (BNV) | payer OTHER, SELFPAY | PROVIDERS: PCP Student in an Organized Health Care Education/Training Program; Visit Provider Family Medicine | DX: J43.9 Emphysema, unspecified (principal) | CPT/HCPCS: 71250 ==

== ENCOUNTER 2025-03-18 10:56 | Outpatient (AMB) | payer OTHER, SELFPAY ==
[2025-03-18 11:01] VITALS: BP 100/70; PULSE 92; O2SAT 93; BMI 19.6
--- NOTE | 2025-03-18 11:01 | A.OFFVIS_ITS ---
Vital Signs 03/18/25 11:01 Height 5 ft 6 in Weight 121 lb 4 oz BMI 19.6 BP 100/70 Blood Pressure Location Rt brachial Position Sitting Pulse 92 Pulse Source Pulse Oximeter Pulse Oximetry (%) 93 Oxygen Delivery Method Room Air Intake Visit Reasons: COPD Allergies No Known Allergies (No Known Allergies*) Allergy (Verified 03/18/25 11:05) HPI HPI COPD: Details: Juana is a pleasant 69 year old female current minimal smoker with 30+ pack year history, with underlying severe COPD, HTN and HLD. Previously discussed chest CT [place] [facility] [place] during hospital admission for COPD exacerbation. Findings were consistent with infectious process, bronchial thickening with multiple waxing and waning mucoid impacted bronchi and mild bronchiectasis. She was treated with ceftriaxone, azithromycin and prednisone with complete resolution of symptoms and was scheduled for annual CT 02/2025. At the last visit, she reported bronchitic symptoms and was treated with azithromycin as well as prednisone unfortunately symptoms did not improve since 12/2024 and continues with symptoms. She reports ongoing productive cough with yellow sputum, increased wheezing and dyspnea with associated chest congestion. Denies fevers or chills. She continues to use Trelegy however infrequently using nebulizer therapy/albuterol MDI and continues to smoke. [facility] Medical History COPD (chronic obstructive pulmonary disease) Surgical History H/O total hysterectomy Hx of colonoscopy (~05/2019) History of tubal ligation Family History Mother Breast CA Social History Household Members: None Household Members Other:: goes to significant other house 3x a week Housing: Apartment Housing Other:: 2 family house Do you presently have visiting nurse or other home services: Yes (CIGARETTE MAKING EXAMINER) Alcohol intake: current Alcohol intake frequency: does not drink Patient Tobacco Use Status: Current everyday Tobacco user Tobacco use type: Cigarette Cigarette Packs Per Day: 0.25 Cigarettes Per Day: 5 e-Cigarette/Vaping Use: Never Used Second Hand Smoke Exposure: No Substance Use Type: Marijuana Advance Directives Date on File: 11/16/23 service: No Current occupational status: retired Female Reproductive History Menstrual Age of Menarche: 10 Review of Systems Const Denies chills, Denies excessive sweating, Denies fever(s), Denies headache(s) and Denies night sweats Eyes Denies dry eyes, Denies irritation and Denies itchy eyes ENT Reports Normal hearing present, Denies headache(s), Denies nasal congestion, Denies nasal discharge, Denies post nasal drip and Denies sore throat Card Denies chest pain, Denies chest pain at rest, Denies chest pain with activity, Denies claudication, Denies leg edema, Reports dyspnea on exertion, Denies orthopnea and Denies paroxysmal nocturnal dyspnea Resp Reports change in phlegm color, Reports chest congestion, Reports cough, Denies hemoptysis, Denies excessive phlegm production, Denies pain on inspiration, Denies pain with cough, Reports dyspnea on exertion, Denies stridor and Reports wheezing Musc Denies myalgias Neuro Reports Normal hearing present and Denies headache(s) Endo Denies excessive sweating Bao/Lymph Denies lymphadenopathy Aller/Immun Denies itchy eyes, Denies seasonal rhinorrhea and Reports wheezing Physical Exam Vital Signs: Last Vital Signs Pulse 92 03/18/25 11:01 BP 100/70 03/18/25 11:01 Pulse Ox 93 03/18/25 11:01 Oxygen Delivery Method Room Air 03/18/25 11:01 BMI result Body Mass Index 19.6 Const General: cooperative, healthy appearing, comfortable, no acute distress, well developed and alert Orientation/consciousness: patient oriented x3 Limitations: no limitations HEENT Head: Yes normal to inspection, Yes normocephalic and Yes atraumatic Ears: hearing grossly normal bilaterally and external ears normal Eyes General: appearance normal, both eyes and all related structures Eyelids: Yes eyelids normal Sclerae: sclerae normal EOM: EOMs intact bilaterally Neck Neck: Yes normal visual inspection and Yes no lymphadenopathy Lymphatic: no lymphadenopathy noted Chest Chest palpation & inspection: normal inspection of the chest Resp Effort & Inspection: normal respiratory effort, able to speak in complete sentences, no audible wheezes, no cough, no stridor, not tachypneic, no tripod positioning and no use of accessory muscles Auscultation: rhonchi, wheezes and diminished lung sounds Cardio Jugular venous distension: no JVD Rate: regular rate Rhythm: regular rhythm Skin Other: warm, dry General skin exam: no rashes or lesions noted Neuro General: patient oriented x3 Cranial nerves: Yes Normal hearing present Cognition (Neuro): normal cognition Gait exam (Neuro): Normal gait present Extrem General: Yes normal to inspection, Yes capillary refill normal, Yes no clubbing, cyanosis or edema and Yes no pedal edema Psych Appearance: grossly normal and well kempt Speech and movement: Normal speech and movement present and Clear speech present Affect: normal affect Attitude: cooperative Thought process: Normal thought process present Thought content: Normal thought content present Insight: Good insight present (Psych) Judgement: Good judgement present (Psych) Results Reviewed Results Reviewed: [address] [address] [address] Scan Report Signed Patient: Juana Lopez MR#: [id number] : 1955 Acct:[id number] Age/Sex: 69 / F ADM Date: 03/03/25 Loc: HO.CT Attending Dr: Alka Robles NP Ordering Physician: Alka Robles NP Date of Service: 03/03/25 Procedure(s): CT chest wo IV con Accession Number(s): [id number] cc: Anne Caballero MD; Alka Robles NP~ Report Number: [id number]: Total DLP = 149.00 mGy-cm CLINICAL HISTORY: F17.210 - Nicotine dependence, cigarettes, uncomplicated CT chest without contrast Comparison: CR/SR - XR CHEST 2 VIEWS - 10/14/24 16:[address]/REG/SR - CT CHEST WITHOUT IV CONTRAST - 07/17/24 18:55 EST Findings: The heart is normal size. The visualized thyroid and mediastinum are unremarkable. Moderate pulmonary emphysema. New nodular consolidation in the inferior aspect of the right middle lobe of the lung measuring 10 mm with surrounding ground-glass opacity. Follow-up chest CT in 1-3 months to exclude infectious or inflammatory process or atelectasis. Multiple hypodensities throughout the liver similar to previous exam. Unchanged 0.6 cm nonobstructive left nephrolithiasis. No acute fractures. IMPRESSION: New nodular consolidation in the inferior aspect of the right middle lobe of the lung measuring 10 mm with surrounding ground-glass opacity. Follow-up chest CT in 1-3 months to exclude infectious or inflammatory process or atelectasis. This document has been electronically signed by: Satnam Blanchard DO on 03/04/2025 11:11:04 Dictated By: Satnam Blanchard DO Signed By: <Electronically signed by Satnam Blanchard DO in OV> 03/04/25 1112 DD/ 1111 TD/TT: 03/04/25 1111 Classified Advertising Supervisor: Assessment & Plan Assessment & Plan (1) COPD (chronic obstructive pulmonary disease): Code(s): J44.9 - Chronic obstructive pulmonary disease, unspecified Category: Medical (2) Nicotine dependence, cigarettes, uncomplicated: Code(s): F17.210 - Nicotine dependence, cigarettes, uncomplicated Category: Medical (3) Bronchiectasis: Code(s): J47.9 - Bronchiectasis, uncomplicated Category: Medical Plan Will treat bronchitic symptoms with prednisone and Augmentin. She is aware to call if symptoms do not improve. Encouraged use of nebulized therapy as well as Mucinex DM. Reviewed chest CT which revealed new 10 mm pulmonary nodule of RML surrounded by ggo suggestive of inflammatory/infectious process. Will repeat in 8 weeks to assess for resolution. Discussed smoking cessation and patient not ready to quit at this time. All questions were answered and patient is in agreement of plan. Will follow up to review results or sooner if needed. Orders: Orders CT chest wo IV con 8 Weeks R91.1 - Solitary pulmonary nodule Medications: New amoxicillin-pot clavulanate 875-125 mg 1 tab PO Q12H 20 tabs 0RF prednisone see taper instructions; 40 mg Daily x3 days, 30 mg daily x3 days, 20 mg daily x3 days, 10 mg daily x3 days 10 mg PO DIRECTED 30 tabs 0RF Coding Level of Care Code Est Pt Level 4 (06115) Diagnoses COPD (chronic obstructive pulmonary disease) J44.9 Nicotine dependence, cigarettes, uncomplicated F17.210 Bronchiectasis J47.9
--- OUTSIDE RECORDS SUMMARY | 2025-03-18 11:43 | XMS_ITS | Clinical Summary ---
Author Organization [facility] Address [address] [facility] [address] [place] [address] Phone Care Team Providers Care Regional Clinical Research Associate Name Role Phone Anne Caballero MD Primary Care Provider [phone] Allergies No known active allergies Medications amitriptyline [...] patient's age to complete this topic Insurance [id number] One Care Dual SNP ([id number]) [facility] One Care Dual SNP ([id number]) Care Teams Regional Clinical Research Associate Relationship Specialty Start Date End Date Anne Caballero MD [address] [place] [id number] PCP - General Family Medicine 02/21/22
--- OUTSIDE RECORDS SUMMARY | 2025-03-18 11:43 | XMS_ITS | Encounter Summary ---
Author Organization [employer] Address [address] [facility] 7t [place] [address] Care Team Providers Care Rough Rounder Machine Name Role Phone Anne Caballero MD Primary Care Provider [phone] Reason for Visit * Reason Onset Date Comments Med Refill 03/13/2024 Encounter Details Date Type Department Care Team ([facility] st Contact Info) Description 03/13/2024 Refill [facility] CHC MED & PEDS [address] [place], [place] [phone] Anne Caballero MD [address] [place] [address] Chronic obstructive pulmonary disease, unspecified COPD type [...] Description 04/15/2025 10:00 AM EDT Office Visit [facility] ADULT DENTAL [address] [place] [address] Eddie Rodriguez documented as of this encounter Visit Diagnoses Diagnosis Chronic obstructive pulmonary disease, unspecified COPD type (CMS/HCC) documented in this encounter Additional Health Concerns Assessment Noted Time PHQ-9 Depression Total Score: 4 10/21/19 23 9:37 AM EST documented as of this encounter Care Teams Rough Rounder Machine Relationship Specialty Start Date End Date Anne Caballero MD [address] [place] [id number] PCP - General Family Medicine 07/30/12 documented as of this encounter
== END 2025-03-18 11:23 | disposition home or self-care (01) ==
LOC: HO.HPSW 10:57
PROVIDERS: PCP Student in an Organized Health Care Education/Training Program; Visit Provider Nurse Practitioner Family
DX: J44.9 Chronic obstructive pulmonary disease, unspecified (principal); F17.210 Nicotine dependence, cigarettes, uncomplicated; J47.9 Bronchiectasis, uncomplicated
CPT/HCPCS: 99214

== ENCOUNTER → 2025-03-18 10:56 | Outpatient (BNVA) | payer OTHER, SELFPAY | PROVIDERS: PCP Student in an Organized Health Care Education/Training Program; Visit Provider Nurse Practitioner Family | DX: R91.1 Solitary pulmonary nodule (principal); J44.9 Chronic obstructive pulmonary disease, unspecified; F17.210 Nicotine dependence, cigarettes, uncomplicated; J47.9 Bronchiectasis, uncomplicated | CPT/HCPCS: 99212 ==

== ENCOUNTER 2025-04-11 10:37 | Outpatient (REF) | payer OTHER, SELFPAY ==
--- OUTSIDE RECORDS SUMMARY | 2025-04-10 14:00 | XMS_ITS | Encounter Summary ---
Author Organization [employer] Address [address] [facility] 7t [place] [address] Care Team Providers Care Deputy Clerk Name Role Phone Anne Caballero MD Primary Care Provider [phone] Reason for Visit * Reason Comments Anxiety Encounter Details Date Type Department Care Team ([facility] Contact Info) Description 04/10/2025 2:00 PM EDT Office Visit [facility] CHC MED & PEDS [address] [place], [place] [phone] Killian Rodriguez MD [address] [place] [address] Anxiety (Primary Dx); Grief reaction Social History Tobacco Use Types Packs/Day Years Used Date Smoking Tobacco: Every Day Cigarettes 0.5 45 Passive Smoke Exposure: Never Smokeless Tobacco: Never Alcohol Use Standard Drinks/Week Comments Not Currently 1 (1 standard drink = 0.6 oz pur e alcohol) Depression Answer Date Recorded Patient Health Questionnaire-9 Score 0 03/06/2025 Patient Health Questionnaire-9 Score 0 03/06/2025 Last PHQ-9: Questionnaire Data Not on file 0 03/06/2025 Housing Stability Answer Date Recorded What is your housing situation today? I have paulino kong 02/26/[address] you li ve. Do you have problems with any of the following? None of the above 02/26/2025 Food Insecurity Answer Date Recorded Within the past 12 months, y ou worried that your food would run out before you got money to buy more: Never True 02/26/2025 Within the past 12 months,th e food you bought just didn't last and you didn't have enough money to get more: Never True Transportation Answer Date Recorded In the past 12 months, has l ack of transportation kept you from medical appts, meetings, work or from getting things needed for daily living? No 02/26/2025 Utilities Answer Date Recorded In the past 12 months, has t he electric, gas, oil or water company threatened to shut off services in your home? No 02/26/2025 Depression Answer Date Recorded Patient Health Questionnaire-2 Score 0 03/06/2025 Internet Access Answer Date Recorded Internet Access [...] Sign Reading Time Taken Comments Blood Pressure 119/79 04/10/2025 2:17 PM EDT Pulse 98 04/10/2025 2:17 PM EDT Temperature 36.3 C (97.3 F) 04/10/2025 2:17 PM EDT Respiratory Rate 20 04/10/2025 2:17 PM EDT Oxygen Saturation 96% 04/10/2025 2:17 PM EDT Inhaled Oxygen Concentration - - Weight 55.8 kg (123 lb) 04/10/2025 2:17 PM EDT Height 163.8 cm (5' 4.5 ) 04/10/2025 2:17 PM EDT Body Mass Index 20.79 04/10/2025 2:17 PM EDT documented in this encounter Progress Notes * Killian Rodriguez MD - 04/10/2025 2:00 PM EDT SUBJECTIVE Juana Lopez is a 69 y.o. female who presents for Anxiety. Anxiety Symptoms include nervous/anxious behavior. Patient with history of hypothyroidism, hyperlipidemia, hypertension, COPD, active smoker presents herself to the office with a complaint of anxiety for the last 3 weeks after receiving a tapering course of prednisone. Patient states that she has been very irritable after the prednisone taper and has been snapping at people for no reason. Also reports crying spells. Denies any suicidal ideation or homicidal ideation. Already receiving psychotherapy. She reports multiple recent in her family. Problem List[1] Allergies[2] Medications Ordered Prior to Encounter[3] Review of Systems Constitutional: Negative for appetite change, chills and diaphoresis. Eyes: Negative for photophobia, pain and redness. Respiratory: Negative for cough, choking and chest tightness. Musculoskeletal: Negative for back pain and gait problem. Psychiatric/Behavioral: The patient is nervous/anxious. OBJECTIVE Vitals: 04/10/25 1417 BP: 119/79 Pulse: 98 Resp: 20 Temp: 97.3 ??F (36.3 ??C) TempSrc: Oral SpO2: 96% Weight: 123 lb (55.8 kg) Height: 5' 4.5 (1.638 m) Physical Exam Vitals reviewed. Constitutional: General: She is not in acute distress. Appearance: Normal appearance. She is not ill-appearing, toxic-appearing or diaphoretic. Pulmonary: Effort: Pulmonary effort is normal. Neurological: General: No focal deficit present. Mental Status: She is alert and oriented to person, place, and time. Psychiatric: Mood and Affect: Mood is anxious. Affect is tearful. Thought Content: Thought content normal. Cognition and Memory: Cognition normal. Assessment/Plan Assessment/Plan Diagnoses and all orders for this visit: Anxiety - clonazePAM (KlonoPIN) 0.5 MG tablet; Take 0.5 tablets (0.25 mg) by mouth if needed each day for anxiety. - busPIRone (Buspar) 5 MG tablet; Take 1 tablet (5 mg) by mouth 2 times daily. To follow-up with PCP in 3 to 4 weeks to be assessed for efficacy of the current management. Grief reaction Comments: Patient reports 3 recent deaths in the family Denies suicidal ideation or homicidal ideation To continue with psychotherapy [1] Patient Active Problem List Diagnosis Benign hypertension Hyperlipidemia COPD (chronic obstructive pulmonary disease) (CMS/HCC) Hyperthyroidism Chronic hepatitis C (CMS/HCC) Anxiety Muscle tightness [2] No Known Allergies [3] Current Outpatient Medications on File Prior to Visit Medication Sig Dispense Refill acetaminophen (Tylenol) 500 MG tablet Take 2 tablets (1,000 mg) by mouth every 6 (six) hours if needed for moderate pain or fever for up to 25 doses. 50 tablet 0 albuterol 1.25 MG/3ML nebulizer solution Take 3 mL (1.25 mg) by nebulization every 4 (four) hours if needed for wheezing. 75 mL 11 albuterol 108 (90 Base) MCG/ACT inhaler INHALE TWO PUFFS BY MOUTH EVERY 4 HOURS IF NEEDED FOR WHEEZING 18 g 3 amitriptyline (Elavil) 10 MG tablet Take 1 tablet (10 mg) by mouth at bedtime. 30 tablet 11 amLODIPine (Norvasc) 5 MG tablet Take 1 tablet (5 mg) by mouth Once per day. 30 tablet 11 cetirizine (ZyrTEC) 10 MG tablet TAKE ONE TABLET BY MOUTH EVERY DAY 90 tablet 0 D3-1000 25 MCG (1000 UT) capsule TAKE ONE CAPSULE BY MOUTH EVERY MORNING 90 capsule 0 Fluticasone Furoate-Vilanterol (Breo Ellipta) 200-25 MCG/ACT aerosol powder Inhale 200 mcg Once perday. 60 each 3 Fluticasone Furoate-Vilanterol 200-25 MCG/ACT aerosol powder INHALE ONE PUFF BY MOUTH EVERY DAY AT THE SAME TIME EVERY DAY ibuprofen 400 MG tablet Take 1 tablet (400 mg) by mouth every 6 (six) hours if needed for moderate pain or fever for up to 30 doses. 30 tablet 0 ketotifen (Zaditor) 0.025 % ophthalmic solution ADMINISTER 1 DROP INTO BOTH EYES TWO TIMES A DAY 10mL 0 simvastatin (Zocor) 10 MG tablet TAKE ONE TABLET BY MOUTH AT BEDTIME 90 tablet 1 tiZANidine (Zanaflex) 2 MG tablet TAKE ONE TABLET BY MOUTH EVERY 6 HOURS IF NEEDED FOR MUSCLE SPASMFOR UP TO 10 DAYS. 30 tablet 0 Trelegy Ellipta 200-62.5-25 MCG/ACT aerosol powder Inhale 1 puff Once per day. [DISCONTINUED] albuterol 108 (90 Base) MCG/ACT inhaler Inhale 2 puffs every 4 (four) hours if needed for wheezing. 25.5 g 3 No current facility-administered medications on file prior to visit. documented in this encounter Plan of Treatment Upcoming Encounters Date Type Department Care Team (Late st Contact Info) Description 04/15/2025 10:00 AM EDT Office Visit [facility] ADULT DENTAL [address] [place] [address] Eddie Rodriguez 05/01/2025 11:30 AM EDT Office Visit [facility] MED & PEDS [address] [place] [address] Anne Caballero MD [address] [place] [address] documented as of this encounter Visit Diagnoses Diagnosis Anxiety- Primary Anxiety state, unspecified Grief reaction Adjustment disorder with depressed mood documented in this encounter Additional Health Concerns Assessment Noted Time PHQ-9 Depression Total Score: 0 03/06/20 25 9:20 AM EDT documented as of this encounter Care Teams Deputy Clerk Relationship Specialty Start Date End Date Anne Caballero MD [address] [place] [phone] PCP - General Family Medicine 07/30/12 documented as of this encounter
--- OUTSIDE RECORDS SUMMARY | 2025-04-11 11:15 | XMS_ITS | Encounter Summary ---
Author Organization [employer] Address [address] [facility] 7t [place] [address] Care Team Providers Care Silk Screen Frame Assembler Name Role Phone Anne Caballero MD Primary Care Provider Reason for Visit * Reason Onset Date Comments Med Refill 10/20/2023 Encounter Details Date Type Department Care Team ([facility] st Contact Info) Description 10/20/2023 Refill [facility] CHC MED & PEDS [address] [place] [address] Killian Rodriguez MD [address] [place] [address] Chronic obstructive pulmonary disease, unspecified COPD type [...] is your housing situation today? I have paulinosandra kong 06/01/[address] you [...] 10:00 AM EDT Office Visit [facility] ADULT DENTAL [address] [place] [address] Eddie Rodriguez 05/01/2025 11:30 AM EDT Office Visit [facility] MED & PEDS [address] [place] [address] Anne Caballero MD [address] [place] [address] documented as of this encounter Visit Diagnoses Diagnosis Chronic obstructive pulmonary disease, unspecified COPD type (CMS/HCC) documented in this encounter Additional Health Concerns Assessment Noted Time PHQ-9 Depression Total Score: 4 10/21/19 23 9:37 AM EST documented as of this encounter Care Teams Silk Screen Frame Assembler Relationship Specialty Start Date End Date Anne Caballero MD [address] [place] [phone] PCP - General Family Medicine 07/30/12 documented as of this encounter
--- OUTSIDE RECORDS SUMMARY | 2025-04-11 11:15 | XMS_ITS | Encounter Summary ---
Author Organization [employer] Address [address] [facility] 7t [place] [address] Care Team Providers Care Mid Level Game Designer Name Role Phone Anne Caballero MD Primary Care Provider Reason for Visit * Reason Onset Date Comments Hospital Follow-up 10/10/2023 Encounter Details Date Type Department Care Team ([facility] st Contact Info) Description 10/10/2023 Telephone [facility] MEDICINE [address] [place] [address] Anne Caballero MD [address] [place], [place] [phone] Hospital Follow-up Social History Tobacco Use Types [...] from pt requesting a HDF appt. Hospital: [facility] Date of admission: 10/03/2023 Discharge date: 10/05/2023 Diagnosed: COPD documented in this encounter Plan of Treatment Upcoming Encounters Date Type Department Care Team (Late st Contact Info) Description 04/15/2025 10:00 AM EDT Office Visit [facility] ADULT DENTAL [address] [place] [address] Eddie Rodriguez 05/01/2025 11:30 AM EDT Office Visit [facility] MED & PEDS [address] [place] [address] Anne Caballero MD [address] [place] [address] documented as of this encounter Visit Diagnoses Not on filedocumented in this encounter Additional Health Concerns Assessment Noted Time PHQ-9 Depression Total Score: 4 10/21/19 23 9:37 AM EST documented as of this encounter Care Teams Mid Level Game Designer Relationship Specialty Start Date End Date Anne Caballero MD [address] [place] [phone] PCP - General Family Medicine 07/30/12 documented as of this encounter
--- OUTSIDE RECORDS SUMMARY | 2025-04-11 11:15 | XMS_ITS | Clinical Summary ---
Author Organization [facility] Address [address] [facility] [address] [place] [address] Phone Care Team Providers Care Record Maker Name Role Phone Anne Caballero MD Primary Care Provider [phone] Allergies No known active allergies Medications amitriptyline [...] patient's age to complete this topic Insurance [id number] One Care Dual SNP ([id number]) [facility] One Care Dual SNP ([id number]) Care Teams Record Maker Relationship Specialty Start Date End Date Anne Caballero MD [address] [place] [phone] PCP - General Family Medicine 02/21/22
--- OUTSIDE RECORDS SUMMARY | 2025-04-11 11:15 | XMS_ITS | Encounter Summary ---
Author Organization [employer] Address [address] [facility] 7t [place] [address] Care Team Providers Care Treating And Pumping Supervisor Name Role Phone Anne Caballero MD Primary Care Provider [phone] Reason for Visit * Reason Onset Date Comments Med Refill 03/13/2024 Encounter Details Date Type Department Care Team ([facility] st Contact Info) Description 03/13/2024 Refill [facility] CHC MED & PEDS [address] [place], [place] [phone] Anne Caballero MD [address] [place] [address] Chronic obstructive pulmonary disease, unspecified COPD type [...] [facility] [address] [place] [address] Eddie Rodriguez 05/01/2025 11:30 AM EDT Office Visit [facility] MED & PEDS [address] [place] [address] Anne Caballero MD [address] [place] [address] documented as of this encounter Visit Diagnoses Diagnosis Chronic obstructive pulmonary disease, unspecified COPD type (CMS/HCC) documented in this encounter Additional Health Concerns Assessment Noted Time PHQ-9 Depression Total Score: 4 10/21/19 23 9:37 AM EST documented as of this encounter Care Teams Treating And Pumping Supervisor Relationship Specialty Start Date End Date Anne Caballero MD [address] [place] [phone] PCP - General Family Medicine 07/30/12 documented as of this encounter
--- OUTSIDE RECORDS SUMMARY | 2025-04-11 11:15 | XMS_ITS | Encounter Summary ---
Author Organization [facility] Address [address] [place] [address] Phone Care Team Providers Care Mechanical Maintenance Instructor Name Role Phone Anne Caballero MD Primary Care Provider [phone] Encounter Details Date Type Department Care Team (Late st Contact Info) Description 03/29/2022 Documentation Only [facility] [address] [place] [address] Priscila Collins MD Social History Tobacco [...] on filedocumented in this encounter Care Teams Mechanical Maintenance Instructor Relationship Specialty Start Date End Date Anne Caballero MD [address] [place] [id number] PCP - General Family Medicine 02/21/22 documented as of this encounter
--- OUTSIDE RECORDS SUMMARY | 2025-04-11 11:15 | XMS_ITS | Clinical Summary ---
Author Organization [facility] Address [address] [place] [address] 7[address] [place] [address] Care Team Providers Care Hydroelectric Machinery Mechanic Name Role Phone Anne Caballero MD Primary Care Provider [phone] Allergies No known active allergies Medications Fluticasone Furoate-Vilant angely 200-25 MCG/ACT aerosol powder INHALE ONE PUFF BY MOUTH EVERY DAY AT THE SAME TIME EVERY DAY 03/16/20 22 Active ketotifen (Zaditor) 0.025 % ophthalmic solution ADMINISTER 1 DROP INTO BOTH EYES TWO TIMES A DAY 10 mL 02/21/20 23 Active Fluticasone Furoate-Vilant angely (Breo Ellipta) 200-25 MCG/ACT aerosol powderIndicati ons:Chronic obstructive pulmonary disease, unspecified COPD type (CMS/HCC) Inhale 200 mcg Once per day. 60 each 3 12/08/19 24 Active simvastatin (Zocor) 10 MG tablet TAKE ONE TABLET BY MOUTH AT BEDTIME 90 tablet 1 12/14/19 24 Active albuterol 1.25 MG/3ML nebulizer solutionIndica tions:Chronic obstructive pulmonary disease, unspecified COPD type (CMS/HCC) Take 3 mL (1.25 mg) by nebulization every 4 (four) hours if needed for wheezing. 75 mL 11 03/14/20 24 Active amitriptyline (Elavil) 10 MG tablet Take 1 tablet (10 mg) by mouth at bedtime. 30 tablet 11 03/14/20 24 Active Trelegy Ellipta 200-62.5-25 MCG/ACT aerosol powder Inhale 1 puff Once per day. 03/19/20 24 Active cetirizine (ZyrTEC) 10 MG tablet TAKE ONE TABLET BY MOUTH EVERY DAY 90 tablet 05/30/20 24 Active acetaminophen (Tylenol) 500 MG tablet Take 2 tablets (1,000 mg) by mouth every 6 (six) hours if needed for moderate pain or fever for up to 25 doses. 50 tablet 10/15/19 25 Active ibuprofen 400 MG tablet Take 1 tablet (400 mg) by mouth every 6 (six) hours if needed for moderate pain or fever for up to 30 doses. 30 tablet 10/15/19 25 Active amLODIPine (Norvasc) 5 MG tablet Take 1 tablet (5 mg) by mouth Once per day. 30 tablet 11 10/25/19 25 Active D3-1000 25 MCG (1000 UT) capsule TAKE ONE CAPSULE BY MOUTH EVERY MORNING 90 capsule 03/06/20 25 Active tiZANidine (Zanaflex) 2 MG tablet TAKE ONE TABLET BY MOUTH EVERY 6 HOURS IF NEEDED FOR MUSCLE SPASM FOR UP TO 10 DAYS. 30 tablet 03/12/20 25 Active albuterol 108 (90 Base) MCG/ACT inhalerIndicat ions:Chronic obstructive pulmonary disease, unspecified COPD type (CMS/HCC) INHALE TWO PUFFS BY MOUTH EVERY 4 HOURS IF NEEDED FOR WHEEZING 18 g 3 04/09/20 25 Active clonazePAM (KlonoPIN) 0.5 MG tabletIndicati ons:Anxiety Take 0.5 tablets (0.25 mg) by mouth if needed each day for anxiety. 15 tablet 04/10/20 25 025 Active busPIRone (Buspar) 5 MG tabletIndicati ons:Anxiety Take 1 tablet (5 mg) by mouth 2 times daily. 60 tablet 11 04/10/20 25 026 Active albuterol 108 (90 Base) MCG/ACT inhalerIndicat ions:Chronic obstructive pulmonary disease, unspecified COPD type (CMS/HCC) Inhale 2 puffs every 4 (four) hours if needed for wheezing. 25.5 g 3 02/26/20 24 025 Discontinued Active Problems Problem Noted Date Diagnosed Date [...] Encounters Date Type Department Care Team Description 04/10/2025 2:00 PM EDT Office Visit [facility] MED & PEDS [address] [place] [address] Killian Rodriguez MD Anxiety (Primary Dx); Grief reaction 04/10/2025 Travel 04/09/[address] [facility] MEDICINE [address] [place] [address] Anne Caballero MD Nurse Triage 04/09/[address] [facility] MEDICINE [address] [place] [address] Anne Caballero MD Chronic obstructive pulmonary disease, unspecified COPD type (CMS/HCC) 03/24/[address] [facility] MEDICINE [address] [place] [address] Anne Caballero MD 03/11/[address] [facility] WALK-IN CENTER [address] [place] [address] Anne Caballero MD 03/06/2025 9:00 AM EDT Office Visit [facility] MED [facility] PED[facility] [address] [place] [address] Anne Caballero MD Benign hypertension (Primary Dx); Chronic obstructive pulmonary disease, unspecified COPD type (CMS/HCC); Hyperthyroidism; Encounter for annual wellness visit 03/06/2025 Travel 03/05/[address] [facility] MEDICINE [address] [place] [address] Anne Caballero MD 03/03/2025 Orders Only [facility] External Provider, [facility] 02/26/2025 Patient Outreach [facility] MEDICINE [address] [place] [address] Anne Caballero MD Pre-visit Planning (SDOH screening negative and Tobacco screening negative) from Last 3 Months Immunizations Immunization Administration Dates Next Due Influenza High-dose Quadriva [...] Mass Index 20.79 04/10/2025 2:17 PM EDT Plan of Treatment Upcoming Encounters Date Type Department Care Team (Late st Contact Info) Description 04/15/2025 10:00 AM EDT Office Visit [facility] ADULT DENTAL [address] [place] [address] Eddie Rodriguez 05/01/2025 11:30 AM EDT Office Visit [facility] MED [facility] PEDS [address] [place] [address] Anne Caballero MD [address] [place] [address] Health Maintenance Due Date Last Done Comments CT Colonography 1955 Colonoscopy 1955 Dental Oral Exam 1955 Dental X-Ray: Full Mouth 1955 FIT 1955 FOBT 1955 Sigmoidoscopy 1953 Alcohol/Substance Use Screening 1965 Hepatitis A Vaccines (1 of 2 - Risk 2-dose series) 1972 Pneumococcal Vaccine: 50+ Years (1 of 2 - PCV) 1972 Hepatitis B Vaccines (1 of 3 - Risk 3-dose series) 2013 RSV Patients and Patients Aged 60 years or older (1 - Risk 60-74 years 1-dose series) 2013 Zoster Vaccines (3 of 3) 02/14/2022 022, 12/20/2021, 03/09/2016 COVID-19 Vaccine (3 - season) 2024 11/10/2020, 10/08/2020 Dental X-Ray: Bitewings 04/05/2025 04/04/2024 Dental Prophylaxis 04/07/2025 10/07/2024, 0 04/04/2024, 03/02/2023 Influenza Vaccine (#1) 2025 , 06/17/2020, 07/06/2018, Additional history exists SDOH Screening 02/26/2026 02/26/2025 Lung Cancer Screening 03/05/2026 03/05/2025 Depression Screening 03/06/2026 03/06/2025, 03/06/20 Tobacco Screening 04/10/2026 04/10/2025 Mammogram 06/27/2026 06/27/2024, 06/0 08/2022, 01/12/2023, Additional history exists Colorectal Cancer Screening 06/12/2027 FIT DNA/Cologuard 06/12/2027 06/12/2024 Lipid Panel 09/29/2028 09/29/2023, 03/0 04/2023, 10/14/2021, Additional history exists DTaP/Tdap/Td Vaccines (3 - Td or Tdap) 05/31/2034 05/31/2024, 03/06/2014 HIB Vaccines Aged Out No longer eligi ble based on patient's age to complete this topic HPV Vaccines Aged Out No longer eligi ble based on patient's age to complete this topic IPV Vaccines Aged Out No longer eligi ble based on patient's age to complete this topic Meningococcal B Vaccine Aged Out No l onger eligible based on patient's age to complete [...] Procedure Name Priority Date/Time Associated Diagnosis Comments CT CHEST WO CONTRAST Routine 03/04/2025 11:11 AM EDT PROPHYLAXIS - ADULT Routine 10/07/2024 1 0:00 AM EST BI MAMMOGRAM SCREENING TOMOSYNTHESIS BILATERAL Routine 06/27/2024 3:41 PM EST LAB COLOGUARD COLON CANCER SCREEN Routine 06/12/2024 12:30 PM EDT Encounter for screening for malignant neoplasm of colon BITEWINGS - 2 RADIOGRAPHIC IMAGES Routine 04/04/2024 2:00 PM EDT LIPID PANEL, STANDARD Routine 09/29/2023 11:51 AM EST Benign hypertension from Last 3 Months or Most Recently Relevant to Health Maintenance Results * CT Chest w/o Contrast (03/04/2025 11:11 AM EDT) Anatomical Region Laterality Modality Body, Chest Computed Tomogra phy 03/04/2025 11:1 1 AM EDT Narrative 03/04/2025 11:12 AM EDT [place] [address] [address] Scan Report Signed Patient: Juana Lopez MR#: [id number] 34 : 1955 Acct:[id number] Age/Sex: 69 / F ADM Date: 03/03/25 Loc: HO.CT Attending Dr: Alka Robles BUTTON SPINDLER Ordering Physician: Alka Robles NP Date of Service: 03/03/25 Procedure(s): CT chest wo IV con Accession Number(s): [id number] cc: Anne Caballero MD; Alka Robles NP Report Number: [id number]: Total DLP = 149.00 mGy-cm CLINICAL HISTORY: F17.210 - Nicotine dependence, cigarettes, uncomplicated CT chest without contrast Comparison: CR/SR - XR CHEST 2 VIEWS - 10/14/24 16:[address]/REG/SR - CT CHEST WITHOUT IV CONTRAST - 07/17/24 18:55 EST Findings: The heart is normal size. The visualized thyroid and mediastinum are unremarkable. Moderate pulmonary emphysema. New nodular consolidation in the inferior aspect of the right middle lobe of the lung measuring 10 mm with surrounding ground-glass opacity. Follow-up chest CT in 1-3 months to exclude infectious or inflammatory process or atelectasis. Multiple hypodensities throughout the liver similar to previous exam. Unchanged 0.6 cm nonobstructive left nephrolithiasis. No acute fractures. IMPRESSION: New nodular consolidation in the inferior aspect of the right middle lobe of the lung measuring 10 mm with surrounding ground-glass opacity. Follow-up chest CT in 1-3 months to exclude infectious or inflammatory process or atelectasis. This document has been electronically signed by: Satnam Blanchard DO on 03/04/2025 11:11:04 Dictated By: Satnam Blanchard DO Signed By: <Electronically signed by Satnam Blanchard DO in OV> 03/04/25 1112 DD/ 1111 TD/TT: 03/04/25 1111 Curtain Supervisor: Procedure Note Donotuseinterpreter, Image - 03/04/[address] [place] [address] [address] Scan Report Signed Patient: Fabian Lopez#: [id number] [birth year] : 4Acct:[id number] Age/Sex: 69 / FADM Date: 03/03/25 Loc: HO.CT Attending Dr: Alka Robles BUTTON SPINDLER Ordering Physician: Alka Robles NP Date of Service: 03/03/25 Procedure(s): CT chest wo IV con Accession Number(s): [id number] cc: Anne Caballero MD; Alka Robles NP Report Number: [id number]: Total DLP = 149.00 mGy-cm CLINICAL HISTORY: F17.210 - Nicotine dependence, cigarettes, uncomplicated CT chest without contrast Comparison: CR/SR - XR CHEST 2 VIEWS - 10/14/24 16:[address]/REG/SR - CT CHEST WITHOUT IV CONTRAST - 07/17/24 18:55 EST Findings: The heart is normal size. The visualized thyroid and mediastinum are unremarkable. Moderate pulmonary emphysema. New nodular consolidation in the inferior aspect of the right middle lobe of the lung measuring 10 mm with surrounding ground-glass opacity. Follow-up chest CT in 1-3 months to exclude infectious or inflammatory process or atelectasis. Multiple hypodensities throughout the liver similar to previous exam. Unchanged 0.6 cm nonobstructive left nephrolithiasis. No acute fractures. IMPRESSION: New nodular consolidation in the inferior aspect of the right middle lobe of the lung measuring 10 mm with surrounding ground-glass opacity. Follow-up chest CT in 1-3 months to exclude infectious or inflammatory process or atelectasis. This document has been electronically signed by: Satnam Blanchard DO on 03/04/2025 11:11:04 Dictated By: Satnam Blanchard DO Signed By: <Electronically signed by Satnam Blanchard DO in OV> 03/04/25 1112 DD/ 1111 TD/TT: 03/04/25 1111 Curtain Supervisor: [facility] External Provider IMG CT PROCEDURES Final Result * BI Mammogram Screening Tomosynthesis Bilateral (06/27/2024 3:41 PM EST) Anatomical Region Laterality Modality Breast Bilateral Mammography 06/27/2024 3:41 PM EST Narrative 07/05/2024 12:50 PM EST [facility]'[address] [place] [address] Mammography Report Signed Patient: Juana Lopez MR#: [id number] [birth year] : 1955 Acct:[id number] Age/Sex: 68 / F ADM Date: 06/27/24 Loc: ZULEIKAO Attending Dr: Anne Caballero MD Ordering Physician: Anne Caballero MD Results: 1Negati ve Date of Service: 06/27/24 Follow Up: 1 Year From Orig ina Mammogram Procedure(s): MM tomosynthesis screening BI Accession Number(s): [id number] cc: Anne Caballero MD EXAMINATION: MM SCREENING [...] by: Celestina Tan DO 07/05/2024 12:47 PM [facility] Dictated By: Celestina Tan DO Signed By: <Electronically signed by Celestina Tan DO in OV> 07/05/24 1247 DD/ 1541 TD/TT: 06/27/24 1554 Curtain Supervisor: Procedure Note Donotuseinterpreter, Image - 07/05/2024 [facility] [address] [place], [place] [address] Mammography Report Signed Patient: Fabian Lopez#: [id number] [birth year] : 1955cct:[id number] Age/Sex: 68 / FADM Date: 06/27/24 Loc: HO.MAMMO Attending Dr: Anne Caballero MD Ordering Physician: Anne Caballero MDResults: 1Negati ve Date of Service: 06/27/24Follow Up: 1 Year From Orig inal Mammogram Procedure(s): MM tomosynthesis screening BI Accession Number(s): [id number] cc: Anne Caballero MD EXAMINATION: MM SCREENING [...] 07/05/24 1247 DD/ 1541 TD/TT: 06/27/24 1554 Curtain Supervisor: Anne Caballero MD IMG BI PROCEDURES Final Result * Cologuard?? colon cancer screening (06/12/2024 12:30 PM EDT) Cologuard Result Negative Negative 06/20/20 10:31 AM EST [facility] (CLIA #:[id number]) Comment: NEGATIVE TEST RESULT. A negative Cologuard result indicates a low likelihood that a colorectal cancer (CRC) or advanced adenoma (adenomatous polyps with more advanced pre-malignant features) is present. The chance that a person with a negative Cologuard test has a colorectal cancer is less than 1 in 1500 (negative predictive value >99.9%) or has an advanced adenoma is less than 5.3% (negative predictive value 94.7%). These data are based on a prospective cross-sectional study of 10,000 individuals at average risk for colorectal cancer who were screened with both Cologuard and colonoscopy. (Hugo Woodson al, N Engl J Med 2014;370(14):9516-8908) The normal value (reference range) for this assay is negative. COLOGUARD RE-SCREENING RECOMMENDATION: Periodic colorectal cancer screening is an important part of preventive healthcare for asymptomatic individuals at average risk for colorectal cancer. Following a negative Cologuard result, the [place] [employer] Society and U.S. Multi-Society Task Force screening guidelines recommend a Cologuard re-screening interval of 3 years. References: [place] [employer] Guideline for Colorectal Cancer Screening: https://www.cancer.org/cancer/kjnql-yqdluj-ckjgia/wkannzgul-quczdstmc-qjusvsl/ac s-rec ommendations.html.; Brandon DK, Mark CR, Cathleen GerardK, Colorectal Cancer Screening: Recommendations for Physicians and Patients from the U.S. Multi-Society Task Force on Colorectal Cancer Screening , Am J Gastroenterology 2017; 112:0108-5624. TEST DESCRIPTION: Composite algorithmic analysis of stool DNA-biomarkers with hemoglobin immunoassay. Quantitative values of individual biomarkers are not [...] (Hugo Woodson al, N Engl J Med 2014;370(14):6177-3820.) Cologuard may produce a false negative or false positive result (no colorectal cancer or precancerous polyp present at colonoscopy follow up). A negative Cologuard test result does not guarantee the absence of CRC or advanced adenoma (pre-cancer). The current Cologuard screening interval is every 3 years. ([place] [employer] Society and U.S. Multi-Society Task Force). Cologuard performance data in a 10,000 patient pivotal study using colonoscopy as the reference method can be accessed at the following location: www.MetaPack/results. Additional description of the Cologuard test process, warnings and precautions can be found at www.colGiferentrd.com. Stool specimen (specimen) 06/12/2024 12:30 PM EDT 06/14/2024 1:04 PM EDT us Anne Caballero MD LAB MOLECULAR DIAGNOSTICS ORDERA BLES Final Result [facility] (CLIA #:[id number]) [place] [address], * (ABNORMAL) Lipid Panel, Standard (09/29/2023 11:51 AM EST) Triglycerides 89 <150 mg/dL [facility] Comment:Desirable Triglyceri de: less than 150 mg/dLBorderline High Triglyceride 150-199 mg/dLHigh Triglyceride: 200-499 mg/dLVery High Triglyceride: greater than or equal to 5OO mg/dL Cholesterol 203(H) <200 mg/dL [facility] Comment:Desirable Cholestero l: less than 200 mg/dLBorderline High Cholesterol: 200-239 mg/dLHigh Cholesterol: greater than 239 mg/dL LDL Cholesterol Calculated 114(H) <100 mg/dL [facility] Comment:Desirable LDL: less than 100 mg/dLNear Optimal/Above Optimal LDL: 110- 129 mg/dLBorderline High LDL: 130-159 mg/dLHigh LDL: 160-189 mg/dLVery High LDL: greater than or equal to 190 mg/dL HDL Cholesterol 72 >40 mg/dL [facility] Comment:Desirable HDL: great er than 40 mg/dL Note: This HDL assay may give artificially low results in patients with liver disease. Blood Venous blood specimen / Unknown 09/29/2023 11:51 AM EST 09/29/2023 1:17 PM EST us Anne Caballero MD LAB BLOOD ORDERABLES Final Resul t [facility] [address] [place] [address] [phone] from Last 3 Months or Most Recently Relevant to Health Maintenance Insurance [address] [place] [address] [facility] RESIDENTIAL OPTIONS (HMO D-SNP) DENTAL [facility] Care Teams Hydroelectric Machinery Mechanic Relationship Specialty Start Date End Date Anne Caballero MD [address] [place] [phone] PCP - General Family Medicine 07/30/12
--- OUTSIDE RECORDS SUMMARY | 2025-04-11 11:16 | XMS_ITS | Encounter Summary ---
Author Organization [facility] Address [address] [facility] 7t [place] [address] Care Team Providers Care Is Analyst Name Role Phone Anne Caballero MD Primary Care Provider [phone] Reason for Visit * Reason Comments Med Refill Encounter Details Date Type Department Care Team ([facility] st Contact Info) Description 04/09/2025 Refill [facility] MEDICINE [address] [place] [address] Anne Caballero MD [address] [place] [address] Chronic obstructive pulmonary disease, unspecified COPD type [...] your housing situation today? I have paulino dilan 02/26/[address] you li [...] Visit [facility] ADULT DENTAL [address] [place] [address] Eddie Rodriguez 05/01/2025 11:30 AM EDT Office Visit [facility] MED & PEDS [address] [place] [address] Anne Caballero MD [address] [place] [address] documented as of this encounter Visit Diagnoses Diagnosis Chronic obstructive pulmonary disease, unspecified COPD type (CMS/HCC) documented in this encounter Additional Health Concerns Assessment Noted Time PHQ-9 Depression Total Score: 0 03/06/20 25 9:20 AM EDT documented as of this encounter Care Teams Is Analyst Relationship Specialty Start Date End Date Anne Caballero MD [address] [place] [phone] PCP - General Family Medicine 07/30/12 documented as of this encounter
--- OUTSIDE RECORDS SUMMARY | 2025-04-11 11:16 | XMS_ITS | Encounter Summary ---
Author Organization [facility] Address [address] [facility] 7t [place] [address] Care Team Providers Care Picking Machine Operator Helper Name Role Phone Anne Caballero MD Primary Care Provider Reason for Visit * Reason Onset Date Comments Nurse Triage 04/09/2025 Encounter Details Date Type Department Care Team ([facility] st Contact Info) Description 04/09/2025 Telephone [facility] MEDICINE [address] [place] [address] Anne Caballero MD [address] [place], [place] [id number] Nurse Triage Social History Tobacco Use Types [...] encounter Miscellaneous Notes * Telephone Encounter - Mary Anders RN - 04/09/2025 3:54 PM EDT Call returned to Juana Lopez to triage below at [phone]. Reports having increased anxietyx 2 weeks. Per pt having difficulty with concentration. Per pt denies any new stressors. Pt denies nay changes in medications. Per pt was on prednisone for a 10 day course. Started by bakery technician. Pt states BP has been normal. HR range 90-92. Per pt SpO2 92-94% on RA. Pt does have a MH therapist,has weekly visits. Last Monday. Not on any medication to treat anxiety. Pt states interfering with sleep. No CP or SOB at this time. Pt denies any SI/HI. Pt advised of disposition, agrees to sick onsite tomorrow with team provider. Reviewed home care advise, ER precautions and reasons to call back. Protocol Used: Anxiety and Panic Attack (Adult) Protocol-Based Disposition: See in Office or Video Visit within 3 Days Future Appointments Date Time Provider Department Center 04/10/2025 2:00 PM Killian Rodriguez MD [facility] 04/15/2025 10:00 AM Eddie Rodriguez [facility] Insurance verified as active per Real Time Eligibility in Epic. Video visit offer not recorded Positive Triage Question: * Moderate anxiety (e.g., persistent or frequent anxiety symptoms; interferes with sleep, school, or work) * All higher-acuity triage questions were negative Care Advice Discussed: * Anxiety - Healthy Lifestyle Tips * Avoid Caffeine * Avoid Triggers of Anxiety * Stress Reduction * Reasons To Call Back - Anxiety or panic attacks continue - You feel like harming yourself - You become worse * Telephone Encounter - Brea Mcqueen - 04/09/2025 3:45 PM EDT Symptoms: Anxiety or Panic Attack, Heartbeat Symptoms (Fast, Slow, or Irregular) Outcome: Transfer to a nurse or provider NOW! Reason: Acting confused The caller accepted this outcome. Contact pt at [phone] documented in this encounter Plan of Treatment Upcoming Encounters Date Type Department Care Team (Late st Contact Info) Description 04/15/2025 10:00 AM EDT Office Visit [facility] ADULT DENTAL [address] [place] [address] Eddie Rodriguez 05/01/2025 11:30 AM EDT Office Visit [facility] MED & PEDS [address] [place] [address] Anne Caballero MD [address] [place] [address] documented as of this encounter Visit Diagnoses Not on filedocumented in this encounter Additional Health Concerns Assessment Noted Time PHQ-9 Depression Total Score: 0 03/06/20 25 9:20 AM EDT documented as of this encounter Care Teams Picking Machine Operator Helper Relationship Specialty Start Date End Date Anne Caballero MD [address] [place] [phone] PCP - General Family Medicine 07/30/12 documented as of this encounter
--- OUTSIDE RECORDS SUMMARY | 2025-04-11 11:16 | XMS_ITS | Encounter Summary ---
Author Organization [employer] [facility] Address [address] [place] [address] 7t [place] [address] Care Team Providers Care Project Inspector Name Role Phone Anne Caballero MD Primary Care Provider Reason for Visit * Reason Onset Date Comments Results 01/27/2023 Encounter Details Date Type Department Care Team ([facility] st Contact Info) Description 01/27/2023 Telephone [facility] MED & PEDS [address] [place], [place] [phone] Anne Caballero MD [address] [place] [address] Results Social History Tobacco Use Types Packs/Day [...] Miscellaneous Notes * Telephone Encounter - Cristopher Dupont, RN - 01/31/2023 12:22 PM EDT Pt [...] Description 04/15/2025 10:00 AM EDT Office Visit [facility] ADULT DENTAL [address] [place] [address] Eddie Rodriguez 05/01/2025 11:30 AM EDT Office Visit [facility] MED & PEDS [address] [place] [address] Anne Caballero MD [address] [place] [address] documented as of this encounter Visit Diagnoses Not on filedocumented in this encounter Additional Health Concerns Assessment Noted Time PHQ-9 Depression Total Score: 4 10/21/19 9:37 AM EST documented as of this encounter Care Teams Project Inspector Relationship Specialty Start Date End Date Anne Caabllero MD [address] [place] [phone] PCP - General Family Medicine 07/30/12 documented as of this encounter
--- OUTSIDE RECORDS SUMMARY | 2025-04-11 11:16 | XMS_ITS | Encounter Summary ---
Author Organization [employer] Address [address] [place] [address] 7t [place] [address] Care Team Providers Care Chef Broiler Or Fry Name Role Phone Anne Caballero MD Primary Care Provider [phone] Encounter Details Date Type Department Care Team (Latest Contact Info) Description 11/13/2018 Abstract [facility] CONVERSIONS Dental, Provider, DDS Social History [...] 10:00 AM EDT Office Visit [facility] ADULT DENTAL [address] [place] [address] Eddie Rodriguez 05/01/2025 11:30 AM EDT Office Visit [facility] MED & PEDS [address] [place] [address] Anne Caballero MD 505 [place] [address] documented as of this encounter Visit Diagnoses Not on filedocumented in this encounter Care Teams Chef Broiler Or Fry Relationship Specialty Start Date End Date Anne Caballero MD [address] [place] [address] PCP - General Family Medicine 07/30/12 documented as of this encounter
--- OUTSIDE RECORDS SUMMARY | 2025-04-11 11:16 | XMS_ITS | Encounter Summary ---
Author Organization [employer] Address [address] [facility] 7t [place] [address] Care Team Providers Care Hand Lens Polisher Name Role Phone Anne Caballero MD Primary Care Provider [phone] Encounter Details Date Type Department Care Team (Latest Contact Info) Description 04/10/2025 Travel Social History Tobacco Use Types Packs/Day Years [...] 04/15/2025 10:00 AM EDT Office Visit [facility] ADULT [facility] [address] [place] [address] Eddie Rodriguez 05/01/2025 11:30 AM EDT Office Visit [facility] MED [facility] PEDS [address] [place] [address] Anne Caballero MD 505 [place] [address] documented as of this encounter Visit Diagnoses Not on filedocumented in this encounter Additional Health Concerns Assessment Noted Time PHQ-9 Depression Total Score: 0 03/06/20 25 9:20 AM EDT documented as of this encounter Care Teams Hand Lens Polisher Relationship Specialty Start Date End Date Anne Caballero MD [address] [place] [address] PCP - General Family Medicine 07/30/12 documented as of this encounter
--- OUTSIDE RECORDS SUMMARY | 2025-04-11 11:16 | XMS_ITS | Encounter Summary ---
Author Organization [employer] Address [address] [facility] 7t [place] [address] Care Team Providers Care Carbon Dioxide Operator Name Role Phone Anne Caballero MD Primary Care Provider [phone] Reason for Visit * Reason Onset Date Comments FYI 01/02/2024 Encounter Details Date Type Department Care Team ([facility] st Contact Info) Description 01/02/[address] [facility] MEDICINE [address] [place] [address] Anne Caballero MD [address] [place], [place] [phone] FYI Social History Tobacco Use Types Packs/Day [...] - 01/02/2024 1:19 PM EDT Tc from [facility] calling to inform PCP pt will be discharge today 01/01 from PT documented in this encounter Plan of Treatment Upcoming Encounters Date Type Department Care Team (Late st Contact Info) Description 04/15/2025 10:00 AM EDT Office Visit [facility] ADULT DENTAL 505 [place] [address] Eddie Rodriguez 05/01/2025 11:30 AM EDT Office Visit [facility] MED & PEDS [address] [place] [address] Anne Caballero MD 505 [place] [address] documented as of this encounter Visit Diagnoses Not on filedocumented in this encounter Additional Health Concerns Assessment Noted Time PHQ-9 Depression Total Score: 4 10/21/19 23 9:37 AM EST documented as of this encounter Care Teams Carbon Dioxide Operator Relationship Specialty Start Date End Date Anne Caballero MD [address] [place] [address] PCP - General Family Medicine 07/30/12 documented as of this encounter
--- OUTSIDE RECORDS SUMMARY | 2025-04-11 11:16 | XMS_ITS | Encounter Summary ---
Author Organization [employer] Address [address] [place] [address] 7t [place] [address] Care Team Providers Care Quality Supervisor Name Role Phone Anne Caballero MD Primary Care Provider [phone] Encounter Details Date Type Department Care Team (Late Contact Info) Description 07/29/2022 Orders Only [facility] [address] [place], [place] [phone] Hannah Berger LPN Social History Tobacco Use [...] [facility] ADULT DENTAL [address] [place] [address] Eddie Rodriguez 05/01/2025 11:30 AM EDT Office Visit [facility] MED & PEDS [address] [place] [address] Anne Caballero MD 505 [place] [address] documented as of this encounter Visit Diagnoses Not on filedocumented in this encounter Care Teams Quality Supervisor Relationship Specialty Start Date End Date Anne Caballero MD [address] [place] [address] PCP - General Family Medicine 07/30/12 documented as of this encounter
--- OUTSIDE RECORDS SUMMARY | 2025-04-11 11:16 | XMS_ITS | Encounter Summary ---
Author Organization [employer] Address [address] [place] [address] 7t [place] [address] Care Team Providers Care Sales Service Rep Name Role Phone Anne Caballero MD Primary Care Provider [phone] Reason for Visit * Reason Comments Med Refill Encounter Details Date Type Department Care Team (Late Contact Info) Description 11/03/2022 Refill [facility] MED [facility] PEDS [address] [place], [place] [phone] Anne Caballero MD 505 [place] [address] Chronic obstructive pulmonary disease, unspecified COPD type [...] Upcoming Encounters Date Type Department Care Team ([facility] Contact Info) Description 04/15/2025 10:00 AM EDT Office Visit [facility] ADULT DENTAL [address] [place] [address] Eddie Rodriguez 05/01/2025 11:30 AM EDT Office Visit [facility] MED & PEDS [address] [place] [address] Anne Caballero MD [address] [place] [address] documented as of this encounter Visit Diagnoses Diagnosis Chronic obstructive pulmonary disease, unspecified COPD type (CMS/HCC) documented in this encounter Additional Health Concerns Assessment Noted Time PHQ-9 Depression Total Score: 4 10/21/19 23 9:37 AM EST documented as of this encounter Care Teams Sales Service Rep Relationship Specialty Start Date End Date Anne Caballero MD [address] [place] [address] PCP - General Family Medicine 07/30/12 documented as of this encounter
--- OUTSIDE RECORDS SUMMARY | 2025-04-11 11:16 | XMS_ITS | Encounter Summary ---
Author Organization [employer] Address [address] [place] [address] 7t [place] [address] Care Team Providers Care Dish Cloth Inspector Name Role Phone Anne Caballero MD Primary Care Provider [phone] Reason for Visit * Reason Comments Med Refill Encounter Details Date Type Department Care Team ([facility] st Contact Info) Description 11/03/2022 Refill [facility] MED & PEDS [address] [place], [place] [phone] Anne Caballero MD 505 [place] [address] Chronic obstructive pulmonary disease, unspecified COPD type [...] 04/15/2025 10:00 AM EDT Office Visit [facility] ADULT D[facility]AL [address] [place] [address] Eddie Rodriguez 05/01/2025 11:30 AM EDT Office Visit [facility] MED & PEDS [address] [place] [address] Anne Caballero MD 505 [place] [address] documented as of this encounter Visit Diagnoses Diagnosis Chronic obstructive pulmonary disease, unspecified COPD type (CMS/HCC) documented in this encounter Additional Health Concerns Assessment Noted Time PHQ-9 Depression Total Score: 4 10/21/19 23 9:37 AM EST documented as of this encounter Care Teams Dish Cloth Inspector Relationship Specialty Start Date End Date Anne Caballero MD [address] [place] [address] PCP - General Family Medicine 07/30/12 documented as of this encounter
--- OUTSIDE RECORDS SUMMARY | 2025-04-11 11:16 | XMS_ITS | Encounter Summary ---
Author Organization [employer] Address [address] [facility] 7t [place] [address] Care Team Providers Care Railcar Switcher Name Role Phone Anne Caballero MD Primary Care Provider [phone] Reason for Visit * Reason Onset Date Comments FYI 12/11/2023 Encounter Details Date Type Department Care Team ([facility] st Contact Info) Description 12/11/2023 Telephone [facility] MEDICINE [address] [place] [address] Anne Caballero MD [address] [place], [place] [phone] FYI Social History Tobacco Use Types Packs/Day [...] is your housing situation today? I have pauilno kong 06/01/[address] you [...] 3:26 PM EDT Tc from [place] at [facility] calling to inform the Provider the patient was discharged from [facility] on 11/28 documented in this encounter Plan of Treatment Upcoming Encounters Date Type Department Care Team (Late st Contact Info) Description 04/15/2025 10:00 AM EDT Office Visit [facility] ADULT DENTAL 505 [place] [address] Eddie Rodriguez 05/01/2025 11:30 AM EDT Office Visit [facility] MED & PEDS [address] [place] [address] Anne Caballero MD 505 [place] [address] documented as of this encounter Visit Diagnoses Not on filedocumented in this encounter Additional Health Concerns Assessment Noted Time PHQ-9 Depression Total Score: 4 10/21/19 23 9:37 AM EST documented as of this encounter Care Teams Railcar Switcher Relationship Specialty Start Date End Date Anne Caballero MD [address] [place] [address] PCP - General Family Medicine 07/30/12 documented as of this encounter
--- OUTSIDE RECORDS SUMMARY | 2025-04-11 11:16 | XMS_ITS | Encounter Summary ---
Author Organization [employer] Address [address] [place] [address] 7t [place] [address] Care Team Providers Care Cat Driver Name Role Phone Anne Caballero MD Primary Care Provider [phone] Encounter Details Date Type Department Care Team (Latest Contact Info) Description 04/22/2021 Abstract [facility] CONVERSIONS Dental, Provider, DDS Social [...] Description 04/15/2025 10:00 AM EDT Office Visit [facility] ADULT DENTAL 505 [place] [address] Eddie Rodriguez 05/01/2025 11:30 AM EDT Office Visit [facility] MED & PEDS [address] [place] [address] Anne Caballero MD 505 [place] [address] documented as of this encounter Visit Diagnoses Not on filedocumented in this encounter Care Teams Cat Driver Relationship Specialty Start Date End Date Anne Caballero MD [address] [place] [address] PCP - General Family Medicine 07/30/12 documented as of this encounter
--- OUTSIDE RECORDS SUMMARY | 2025-04-11 11:16 | XMS_ITS | Encounter Summary ---
Author Organization [employer] Address [address] [place] [address] 7t [place] [address] Care Team Providers Care Panel Raiser Operator Name Role Phone Anne Caballero MD Primary Care Provider [phone] Encounter Details Date Type Department Care Team (Latest Contact Info) Description 06/07/2022 Abstract [facility] CONVERSIONS Dental, Provider, DDS Social History [...] 04/15/2025 10:00 AM EDT Office Visit [facility] ADULT DENTAL [address] [place] [address] Eddie Rodriguez 05/01/2025 11:30 AM EDT Office Visit [facility] MED & PEDS [address] [place] [address] Anne Caballero MD 505 [place] [address] documented as of this encounter Visit Diagnoses Not on filedocumented in this encounter Care Teams Panel Raiser Operator Relationship Specialty Start Date End Date Anne Caballero MD [address] [place] [address] PCP - General Family Medicine 07/30/12 documented as of this encounter
--- OUTSIDE RECORDS SUMMARY | 2025-04-11 11:16 | XMS_ITS | Encounter Summary ---
Author Organization [employer] Address [address] [facility] 7t [place] [address] Care Team Providers Care Vice President Of Communications Name Role Phone Anne Caballero MD Primary Care Provider [phone] Encounter Details Date Type Department Care Team (Late st Contact Info) Description 09/08/2022 Orders Only [facility] MED & PEDS [address] [place] [address] Lainey Lee LPN Social History Tobacco Use [...] 10:00 AM EDT Office Visit [facility] ADULT DENTAL 505 [place] [address] Eddie Rodriguez 05/01/2025 11:30 AM EDT Office Visit [facility] MED & PEDS 505 [place], [place] [phone] Anne Caballero MD 505 [place] [address] documented as of this encounter Visit Diagnoses Not on filedocumented in this encounter Care Teams Vice President Of Communications Relationship Specialty Start Date End Date Anne Caballero MD [address] [place] [address] PCP - General Family Medicine 07/30/12 documented as of this encounter
--- OUTSIDE RECORDS SUMMARY | 2025-04-11 11:16 | XMS_ITS | Encounter Summary ---
Author Organization [employer] Address [address] [facility] 7t [place] [address] Care Team Providers Care Equipment Cleaner And Tester Name Role Phone Anne Caballero MD Primary Care Provider [phone] Reason for Visit * Reason Comments Med Refill Encounter Details Date Type Department Care Team ([facility] st Contact Info) Description 03/24/2025 Refill [facility] MEDICINE [address] [place] [address] Anne Caballero MD [address] [place] [address] Social History Tobacco Use Types Packs/Day Years [...] [facility] ADULT DENTAL 505 [place] [address] Eddie Rodriguez 05/01/2025 11:30 AM EDT Office Visit [facility] MED & PEDS [address] [place] [address] Anne Caballero MD 505 [place] [address] documented as of this encounter Visit Diagnoses Not on filedocumented in this encounter Additional Health Concerns Assessment Noted Time PHQ-9 Depression Total Score: 0 03/06/20 25 9:20 AM EDT documented as of this encounter Care Teams Equipment Cleaner And Tester Relationship Specialty Start Date End Date Anne Caballero MD [address] [place] [address] PCP - General Family Medicine 07/30/12 documented as of this encounter
--- OUTSIDE RECORDS SUMMARY | 2025-04-11 11:16 | XMS_ITS | Encounter Summary ---
Author Organization [employer] Address [address] [facility] 7t [place] [address] Care Team Providers Care Insurance Verification Rep Name Role Phone Anne Caballero MD Primary Care Provider [phone] Encounter Details Date Type Department Care Team ([facility] Contact Info) Description 12/30/2022 Orders Only [facility] MED & PEDS [address] [place] [address] Shruti Piña LPN Social History Tobacco Use [...] Upcoming Encounters Date Type Department Care Team ([facility] Contact Info) Description 04/15/2025 10:00 AM EDT Office Visit [facility] ADULT DENTAL [address] [place] [address] Eddie Rodriguez 05/01/2025 11:30 AM EDT Office Visit [facility] MED & PEDS [address] [place] [address] Anne Caballero MD [address] [place] [address] documented as of this encounter Visit Diagnoses Not on filedocumented in this encounter Additional Health Concerns Assessment Noted Time PHQ-9 Depression Total Score: 4 10/21/19 23 9:37 AM EST documented as of this encounter Care Teams Insurance Verification Rep Relationship Specialty Start Date End Date Anne Caballero MD [address] [place] [address] PCP - General Family Medicine 07/30/12 documented as of this encounter
--- OUTSIDE RECORDS SUMMARY | 2025-04-11 11:16 | XMS_ITS | Encounter Summary ---
Author Organization [employer] Address [address] [place] [address] 7t [place] [address] Care Team Providers Care Container Maker Name Role Phone Anne Caballero MD Primary Care Provider [phone] Reason for Visit * Reason Comments Med Refill Encounter Details Date Type Department Care Team (Late Contact Info) Description 01/30/2023 Refill [facility] MED & PEDS [address] [place], [place] [phone] Anne Caballero MD [address] [place] [address] Social History Tobacco Use Types Packs/Day Years [...] 04/15/2025 10:00 AM EDT Office Visit [facility] ADULT DENTAL [address] [place] [address] Eddie Rodriguez 05/01/2025 11:30 AM EDT Office Visit [facility] MED & PEDS [address] [place] [address] Anne Caballero MD [address] [place] [address] documented as of this encounter Visit Diagnoses Not on filedocumented in this encounter Additional Health Concerns Assessment Noted Time PHQ-9 Depression Total Score: 4 10/21/19 23 9:37 AM EST documented as of this encounter Care Teams Container Maker Relationship Specialty Start Date End Date Anne Caballero MD [address] [place] [address] PCP - General Family Medicine 07/30/12 documented as of this encounter
--- OUTSIDE RECORDS SUMMARY | 2025-04-11 11:16 | XMS_ITS | Encounter Summary ---
Author Organization [employer] Address [address] [facility] 7t [place] [address] Care Team Providers Care On Call Name Role Phone Anne Caballero MD Primary Care Provider [phone] Encounter Details Date Type Department Care Team ([facility] Contact Info) Description 01/27/2023 Abstract [facility] [address] [place], [place] [phone] Anne Caballero MD [address] [place] [address] Social History Tobacco Use Types Packs/Day Years [...] Upcoming Encounters Date Type Department Care Team ([facility] Contact Info) Description 04/15/2025 10:00 AM EDT Office Visit [facility] ADULT DENTAL [address] [place] [address] Eddie Rodriguez 05/01/2025 11:30 AM EDT Office Visit [facility] MED & PEDS [address] [place] [address] Anne Caballero MD [address] [place] [address] documented as of this encounter Visit Diagnoses Not on filedocumented in this encounter Additional Health Concerns Assessment Noted Time PHQ-9 Depression Total Score: 4 10/21/19 23 9:37 AM EST documented as of this encounter Care Teams On Call Relationship Specialty Start Date End Date Anne Caballero MD [address] [place] [address] PCP - General Family Medicine 07/30/12 documented as of this encounter
[2025-04-11 13:28] LABS: Alanine Aminotransferase 9 U/L (0-31); Albumin Level 3.8 g/dL (3.5-5.0); Alkaline Phosphatase 60 U/L (39-117); Anion Gap 11 (12-20); Aspartate Amino Transferase 20 U/L (5-31); Blood Urea Nitrogen 18 mg/dL (9-16); Calcium 9.2 mg/dL (8.4-10.2); Carbon Dioxide 30 mmol/L (22-29); Chloride 105 mmol/L (96-108); Cholesterol 253 mg/dL (<200); Estimated Glomerular Filt Rate 56; HDL Cholesterol 73 mg/dL (>40); Potassium 3.8 mmol/L (3.3-5.1); Sodium 142 mmol/L (135-145); Total Protein 6.3 g/dL (6.5-8.0); Triglycerides 104 mg/dL (<150)
== END 2025-04-11 10:38 | disposition home or self-care (01) ==
LOC: HO.HHCL 10:37
PROVIDERS: PCP Student in an Organized Health Care Education/Training Program; Visit Provider Student in an Organized Health Care Education/Training Program
DX: I10 Essential (primary) hypertension (principal); E05.90 Thyrotoxicosis, unspecified without thyrotoxic crisis or storm
CPT/HCPCS: 36415; 80048; 80061; 80076; 84443

== ENCOUNTER 2025-05-02 11:14 | Inpatient (IN) | payer OTHER, SELFPAY ==
--- OUTSIDE RECORDS SUMMARY | 2025-05-01 11:30 | XMS_ITS | Encounter Summary ---
Author Organization [employer] Address [address] [facility] 7t [place] [address] Care Team Providers Care Electronic Device Monitor Name Role Phone Jose Huston CNP Primary Care Provider [phone] Reason for Visit * Reason Comments Anxiety Encounter Details Date Type Department Care Team ([facility] Contact Info) Description 05/01/2025 11:30 AM EDT Telemedicine [facility] MED & PEDS [address] [place] [address] Anne Caballero MD 505 [place] [address] Anxiety Social History Tobacco Use Types Packs/Day Years [...] AM EDT documented as of this encounter Progress Notes * Anne Caballero MD - 05/01/2025 11:30 AM EDT Subjective Patient ID: Juana Lopez is a 69 y.o. female who presents for Anxiety. Anxiety Presents for follow-up visit. Patient reports no chest pain, palpitations or shortness of breath. The quality of sleep is fair. Nighttime awakenings: none. Much improved with Buspar and klonopin Review of Systems Constitutional: Negative. Respiratory: Negative. Negative for shortness of breath. Cardiovascular: Negative for chest pain and palpitations. Gastrointestinal: Negative. Genitourinary: Negative. Musculoskeletal: Negative for neck pain. Neurological: Negative for headaches. Objective Physical Exam Psychiatric: Mood and Affect: Mood normal. Thought Content: Thought content normal. Judgment: Judgment normal. Assessment/Plan Diagnoses and all orders for this visit: Anxiety Comments: Cont Buspar Klonopin 0.25mg PRN for panic attacks documented in this encounter Plan of Treatment Upcoming Encounters Date Type Department Care Team (Late st Contact Info) Description 10/17/2025 10:15 AM EST Office Visit [facility] ADULT DENTAL [address] [place] [address] Eddie Rodriguez documented as of this encounter Visit Diagnoses Diagnosis Anxiety Anxiety state, unspecified documented in this encounter Additional Health Concerns Assessment Noted Time PHQ-9 Depression Total Score: 0 03/06/20 9:20 AM EDT documented as of this encounter Care Teams Electronic Device Monitor Relationship Specialty Start Date End Date Jose Huston CNP 505 [place] [address] PCP - General Family Medicine 05/01/25 documented as of this encounter
[2025-05-02] VITALS (12 sets, daily range): BP systolic 92–141; BP diastolic 60–97; PULSE 84–104; RESP 16–24; TEMP 36.2–36.7; O2SAT 84–96; BMI 20.9
--- NOTE | ~2025-05-02 | XR_ITS ---
EXAMINATION: XR CHEST 2 VIEWS HISTORY: dyspnea COMPARISON: Comparison is made with the prior examination dated 10/14/2024. FINDINGS: AP and lateral views of the chest are submitted. The lungs remain hyperinflated, consistent with COPD. The lungs are clear. There is no pleural effusion, pneumothorax, or pulmonary vascular congestion. The heart is normal in size. There is degenerative disc disease of the spine. XR/XR chest 2V IMPRESSION: COPD. No acute cardiopulmonary abnormality. Electronically signed by: Greg Coppola MD 05/02/2025 12:24 PM EDT
--- NOTE | 2025-05-02 11:18 | ED.GENADULT ---
HPI - General Adult General Chief complaint: Dyspnea Stated complaint: diff breathing Time Seen by Provider: 05/02/25 11:35 Source: patient and old records reviewed Mode of arrival: ambulatory Limitations: no limitations History of Present Illness ED Provider: RYAN NORWOOD narrative: 69 yo female with PMH of COPD not on home O2, bronchiectasis, asthma, HLD, HTN here with c/o increased wheezing, anxiety and feeling short of breath for 2 days. She has been very anxious as well and her PCP started her on buspar and clonazepam. She has no chest pain, no change in sputum, no sick contacts, no travel. She does not have any O2 at home. She has arrived and crying. PSYCHOLOGIST PERSONNEL states abx and prednisone 2 weeks ago I do see a script for augmentin and prednisone but on 03/18. Patient has been very tearful and upset. complaint: COPD Onset (ago): day(s) (1) Location: chest Radiation: non-radiation Severity: moderate Relieving factors: none Exacerbating factors: movement Associated symptoms: cough and shortness of breath Treatments prior to arrival: other Related Data Home Medications ?Medication ?Instructions ?Recorded ?Confirmed simvastatin 10 mg tablet 10 mg PO BEDTIME 01/28/21 07/17/24 albuterol sulfate 90 mcg/actuation 2 puff PO Q4H PRN Shortness Of 02/03/22 07/17/24 aerosol inhaler Breath Or Wheezing amlodipine 5 mg tablet 5 mg PO DAILY 02/03/22 07/17/24 cholecalciferol (vitamin D3) 25 25 mcg PO DAILY 07/21/23 07/17/24 mcg (1,000 unit) capsule (Vitamin D3) cetirizine 10 mg tablet 10 mg PO DAILY 07/17/24 07/17/24 nicotine 21 mg/24 hr daily 21 mg transdermal DAILY PRN 07/17/24 07/17/24 transdermal patch Smoking Cessation Previous Rx's ?Medication ?Instructions ?Recorded fluticasone fur. 200 mcg-umeclid 1 inh inhalation DAILY #60 ea 01/07/25 62.5 mcg-vilant 25 mcg inhalat.powder (Trelegy Ellipta) ipratropium 0.5 mg-albuterol 3 mg 3 ml inhalation Q6H PRN wheezing 01/07/25 (2.5 mg base)/3 mL nebulization #180 mL soln amoxicillin 875 mg-potassium 1 tab PO Q12H #20 tabs 03/18/25 clavulanate 125 mg tablet prednisone 10 mg tablet 10 mg PO DIRECTED #30 tabs 03/18/25 Allergies Allergy/AdvReac Type Severity Reaction Status Date / Time No Known Allergies (No Known Allergy Verified 05/02/25 11:21 Allergies*) Review of Systems Review of Systems: Constitutional : No Fever, No Chills ENT/Mouth : No Hoarseness, No sore throat, No Rhinorrhea Eyes: No Redness, No Discharge, No Vision Changes Cardiovascular : No Chest Pain, positive SOB, positive Dyspnea on Exertion, No Edema Respiratory : positive Cough, No Sputum, positive Wheezing, Gastrointestinal : No Nausea, No Vomiting, No Diarrhea, No abdominal Pain Genitourinary : No Dysuria, No Hematuria Musculoskeletal : No joint pain, No Myalgias Skin : No rash Neuro : No Weakness, No Numbness, No Headache Psych : pos anxiety, depression All other systems reviewed and are negative PMFSH Past Medical History Attestation statement: The following information was validated with the patient. Source: old records reviewed Medical History COPD (chronic obstructive pulmonary disease) Surgical History H/O total hysterectomy Hx of colonoscopy (~05/2019) History of tubal ligation Family History Family History Mother Breast CA Social History Social History Household Members: None Household Members Other:: goes to significant other house 3x a week Housing: Apartment Housing Other:: 2 family house Do you presently have visiting nurse or other home services: Yes (PSYCHOLOGIST PERSONNEL) Alcohol intake: current Alcohol intake frequency: does not drink Patient Tobacco Use Status: Current everyday Tobacco user Tobacco use type: Cigarette Cigarette Packs Per Day: 0.25 Cigarettes Per Day: 5 Smoked in Last 30 Days: Yes e-Cigarette/Vaping Use: Never Used Second Hand Smoke Exposure: No Substance Use Type: Marijuana Advance Directives: Yes Advance Directives on File: Yes Advance Directives Date on File: 05/02/25 service: No Current occupational status: retired Physical Exam ED Vital Signs: Vital Signs - 24 hr 05/02/25 11:18 05/02/25 11:59 05/02/25 12:02 Temperature 98.1 F Pulse Rate 104 H 84 93 Respiratory Rate 24 H 21 H 24 H Blood Pressure 141/97 H 138/92 H Pulse Oximetry 92 90 L Oxygen Delivery Method Room Air Room Air 05/02/25 13:48 Temperature Pulse Rate 94 Respiratory Rate 21 H Blood Pressure Pulse Oximetry Oxygen Delivery Method BMI result Body Mass Index 20.9 Appearance: Alert. Oriented X3. anxious mild acute distress. Eyes: Pupils equal, round and reactive to light. ENT: Pharynx normal. Neck: Normal inspection. Neck supple. CVS: tachycardic heart rate and rhythm. Pulses normal. Respiratory: Mild respiratory distress tachypnea and retractions, anxiety. Breath sounds diminished and diffuse insp and exp wheezes Abdomen: Soft and nontender. Skin: Skin warm and dry. pale skin color. Normal skin turgor. Extremities: No lower extremity edema. Neuro: Oriented X 3. No motor deficit. No sensory deficit. CN2-12 intact Course Course Course Narrative: RME, this is a rapid medical exam performed by Senthil Brown please refer to primary provider for complete H&P- 69 year old female with history of COPD not on Oxygen, hypertension, hyperlipidemia presents for evaluation of shortness of breath over the last few days, She has been using her inhalers with limited relief. She is wheezing on exam. O2 sat of 92% in triage. Plan for x-ray, labs and viral swabs. Medications Administered Discontinued Medications Generic Name Dose Route Start Last Admin Trade Name Ronnieq PRN Reason Stop Dose Admin Albuterol Sulfate 2.5 mg/ 5 mg 05/02/25 13:43 05/02/25 13:48 Albuterol Sulfate 2.5 mg INHALE 05/02/25 13:44 5 mg ONCE ONE Administration Ceftriaxone Sodium 1 gm 05/02/25 11:34 05/02/25 11:59 Ceftriaxone Sodium 1 Gm Vial IVPUSH 05/02/25 11:35 1 gm ONCE ONE Administration Clonazepam 0.5 mg 05/02/25 11:44 05/02/25 11:59 Clonazepam 0.5 Mg Tablet PO 05/02/25 11:45 0.5 mg ONCE ONE Administration Albuterol Sulfate 2.5 mg/ 0 mg 05/02/25 11:47 05/02/25 11:58 Albuterol/Ipratropium 3 ml INHALE 05/02/25 11:48 7.5 dose ONCE ONE Administration Magnesium Sulfate 2 gm in 50 mls @ 150 mls/hr 05/02/25 11:34 05/02/25 11:59 Magnesium Sulfate/H2o IV 05/02/25 11:53 150 mls/hr ONCE ONE Administration Methylprednisolone Sodium Succinate 60 mg 05/02/25 11:34 05/02/25 11:59 Methylprednisolone Sod Succ 125 Mg/2 Ml Vial IVPUSH 05/02/25 11:35 60 mg ONCE ONE Administration Medical Decision Making Medical Decision Making MDM Narrative: 69 yo female with PMH of COPD not on home O2, bronchiectasis, asthma, HLD, HTN here with c/o wheezing and dyspnea x 2 days but no chest pain no sputum no travle or sick contacts at this time will need labs, VBG - start therapy for COPD including nebs, steroids, magnesium and IV ceftriaxone. Differential Diagnosis Differential Diagnoses: The differential diagnosis associated with the presentation includes COPD, viral syndrome, bronchitis Admission/Observation Consideration of admission/observation: Escalation of care including admission/observation considered she is 84% on RA after multiple nebs and IV steroids. She has no O2 at home will admit Consult Healthcare Provider Management of the patient was discussed with: Hospitalist (will admit) Lab Data [facility] Lab Attestation statement: I reviewed the patient's lab results. 05/02/25 11:36 05/02/25 11:36 Labs: Lab Results 05/02/25 05/02/25 05/02/25 Range/Units 11:33 11:36 11:50 WBC 5.1 (4.8-10.8) X10*3/uL RBC 4.97 (4.20-5.50) X10*6/uL Hgb 15.4 (12.0-16.0) g/dl Hct 45.6 (37.0-47.0) % MCV 91.8 (80.0-98.0) fL MCH 31.0 (27.0-33.0) pg MCHC 33.8 (31.0-35.0) g/dl RDW 13.0 (11.0-16.0) % Plt Count 228 (160-400) X10*3/uL MPV 8.7 L (9.4-12.3) fL Immature Gran % (Auto) 0.2 (0.0-0.4) % Neut % (Auto) 59.0 (45-73) % Lymph % (Auto) 20.5 (20-40) % Clare % (Auto) 9.6 (2-11) % Eos % (Auto) 9.1 H (0-4) % Baso % (Auto) 1.6 (0-2) % Lymph # (Auto) 1.0 L (1.2-4.9) X10*3/uL Clare # (Auto) 0.5 (0.1-1.2) X10*3/uL Eos # (Auto) 0.5 H (0.0-0.4) X10*3/uL Baso # (Auto) 0.1 (0.0-0.2) X10*3/uL Abs Immat Gran (auto) 0.01 (0.00-0.03) X10*3/uL Absolute Neuts (auto) 3.0 (2.0-8.3) x10*3/uL Absolute Nucleated RBC 0.000 (0.0-0.012) X10*3/uL Nucleated RBC % (auto) 0.0 (0.0-0.2) /100WBC VBG pH (7.32-7.43) VBG pCO2 mmHg VBG pO2 mmHg VBG HCO3 (22-26) mmol/L VBG O2 Saturation % VBG Base Excess mmol/L Sodium 138 (135-145) mmol/L Potassium 4.2 (3.3-5.1) mmol/L Chloride 105 (96-108) mmol/L Carbon Dioxide 30 H (22-29) mmol/L Anion Gap 7 L (12-20) BUN 18 H (9-16) mg/dL Creatinine 0.89 (0.5-1.4) mg/dL Estim Creat Clear Calc 50.0 Estimated GFR > 60 Random Glucose 94 (60-115) mg/dL Lactic Acid 0.9 (0.5-2.0) mmol/L Calcium 9.8 D (8.4-10.2) mg/dL Magnesium 1.9 (1.6-2.6) mg/dL Total Bilirubin 0.7 (0.0-1.0) mg/dL AST 23 (5-31) U/L ALT 12 (0-31) U/L Alkaline Phosphatase 75 (39-117) U/L Troponin I High Sens < 2.7 (<3.5-17.0) ng/L NT-Pro-B Natriuret Pep 67.4 (<300) pg/mL Total Protein 6.6 (6.5-8.0) g/dL Albumin 4.2 (3.5-5.0) g/dL Lipase 25 (8-78) U/L COVID-19 (SIMON) Negative (Negative) COVID-19 Clin Com See Note Influenza Type A (NICKO) Negative (Negative) Influenza Type B (NICKO) Negative (Negative) Influenza A & B Note See Note 05/02/25 Range/Units 11:57 WBC (4.8-10.8) X10*3/uL RBC (4.20-5.50) X10*6/uL Hgb (12.0-16.0) g/dl Hct (37.0-47.0) % MCV (80.0-98.0) fL MCH (27.0-33.0) pg MCHC (31.0-35.0) g/dl RDW (11.0-16.0) % Plt Count (160-400) X10*3/uL MPV (9.4-12.3) fL Immature Gran % (Auto) (0.0-0.4) % Neut % (Auto) (45-73) % Lymph % (Auto) (20-40) % Clare % (Auto) (2-11) % Eos % (Auto) (0-4) % Baso % (Auto) (0-2) % Lymph # (Auto) (1.2-4.9) X10*3/uL Clare # (Auto) (0.1-1.2) X10*3/uL Eos # (Auto) (0.0-0.4) X10*3/uL Baso # (Auto) (0.0-0.2) X10*3/uL Abs Immat Gran (auto) (0.00-0.03) X10*3/uL Absolute Neuts (auto) (2.0-8.3) x10*3/uL Absolute Nucleated RBC (0.0-0.012) X10*3/uL Nucleated RBC % (auto) (0.0-0.2) /100WBC VBG pH 7.41 (7.32-7.43) VBG pCO2 43 mmHg VBG pO2 51 mmHg VBG HCO3 28 H (22-26) mmol/L VBG O2 Saturation 82.0 % VBG Base Excess 3.2 mmol/L Sodium (135-145) mmol/L Potassium (3.3-5.1) mmol/L Chloride (96-108) mmol/L Carbon Dioxide (22-29) mmol/L Anion Gap (12-20) BUN (9-16) mg/dL Creatinine (0.5-1.4) mg/dL Estim Creat Clear Calc Estimated GFR Random Glucose (60-115) mg/dL Lactic Acid (0.5-2.0) mmol/L Calcium (8.4-10.2) mg/dL Magnesium (1.6-2.6) mg/dL Total Bilirubin (0.0-1.0) mg/dL AST (5-31) U/L ALT (0-31) U/L Alkaline Phosphatase (39-117) U/L Troponin I High Sens (<3.5-17.0) ng/L NT-Pro-B Natriuret Pep (<300) pg/mL Total Protein (6.5-8.0) g/dL Albumin (3.5-5.0) g/dL Lipase (8-78) U/L COVID-19 (SIMON) (Negative) COVID-19 Clin Com Influenza Type A (NICKO) (Negative) Influenza Type B (NICKO) (Negative) Influenza A & B Note Independent Interpretation I performed an independent interpretation of an: EKG and Plain X-Ray (COPD) Interpretation: Rate: 96 Rhythm: NSR [place]: normal Normal P waves. Normal BENITO. Normal QRS complex. ST T wave : flat t waves aVL, no AMBAR qTC: 432 prior studies: no acute ischemia The study has been interpreted contemporaneously by me. . Radiology Impression Discussion of test interpretation with radiology: I have reviewed the radiologist's reading. Independent Historian Clinical information obtained from an independent historian. History obtained from or confirmed by: Other External Record Review External record reviewed: Outpatient record, Prior outpatient labs and Prior outpatient radiology Discharge Plan Discharge Clinical Impression: Acute exacerbation of chronic obstructive airways disease, Hypoxia Patient Disposition: Admitted As Inpatient Print Language: Faroese
--- NOTE | 2025-05-02 11:19 | ECG_ITS ---
Test Reason : DYSPNEA Blood Pressure : */* mmHG Vent. Rate : 96 BPM Atrial Rate : 96 BPM P-R Int : 124 ms QRS Dur : 86 ms QT Int : 342 ms P-R-T Axes : 78 65 83 degrees QTcB Int : 432 ms Normal sinus rhythm Possible Left atrial enlargement Nonspecific T wave abnormality Abnormal ECG When compared with ECG of 17-Jul-2024 15:40, T wave inversion no longer evident in Inferior leads QT has lengthened Referred By: Sundeep Brown Electronically Signed By: CHRIS ROSA
[2025-05-02 11:40] LABS: MANUAL DIFF FLAG NO
[2025-05-02 11:48] LABS: Hematocrit 45.6 % (37.0-47.0); Hemoglobin 15.4 g/dl (12.0-16.0); Imm Gran Abs Auto 0.01 X10*3/uL (0.00-0.03); Imm Gran Pct Auto 0.2 % (0.0-0.4); Lymphocytes Absolute Auto 1.0 X10*3/uL (1.2-4.9); Mean Corpuscular HGB Conc 33.8 g/dl (31.0-35.0); Mean Corpuscular Hemoglobin 31.0 pg (27.0-33.0); Mean Corpuscular Volume 91.8 fL (80.0-98.0); NRBC Abs Auto 0.000 X10*3/uL (0.0-0.012); NRBC Pct Auto 0.0 /100WBC (0.0-0.2); Platelet Count 228 X10*3/uL (160-400); Red Blood Count 4.97 X10*6/uL (4.20-5.50); White Blood Count 5.1 X10*3/uL (4.8-10.8)
[2025-05-02 11:58] LABS: COVID-19 Test Negative (Negative); IDNOW Serial# 55D5AD1C
[2025-05-02] MEDS: Albuterol Sulfate 2.5 MG, Albuterol/Iprat 2.5/0.5MG 3 ML 3 ML INHALE (11:58)
[2025-05-02 11:59] LABS: Alanine Aminotransferase 12 U/L (0-31); Albumin Level 4.2 g/dL (3.5-5.0); Alkaline Phosphatase 75 U/L (39-117); Anion Gap 7 (12-20); Aspartate Amino Transferase 23 U/L (5-31); Blood Urea Nitrogen 18 mg/dL (9-16); Calcium 9.8 mg/dL (8.4-10.2); Carbon Dioxide 30 mmol/L (22-29); Chloride 105 mmol/L (96-108); Creatinine Clr Calc Pharmacy 50.0; Estimated Glomerular Filt Rate > 60; Lipase 25 U/L (8-78); Magnesium 1.9 mg/dL (1.6-2.6); Potassium 4.2 mmol/L (3.3-5.1); Sodium 138 mmol/L (135-145); Total Protein 6.6 g/dL (6.5-8.0)
[2025-05-02] MEDS: Magnesium Sulfate/H2O 2 GM/50 ML PIGGYBACK IV (11:59)
[2025-05-02 12:00] LABS: IDNOW Serial# 58CA691E; Influenza B2 Negative (Negative)
[2025-05-02 12:00] LABS: Venous Blood Gas Refer to POC result
[2025-05-02 12:01] LABS: VBG HCO3 28 mmol/L (22-26); VBG O2 % Saturation 82.0 %
[2025-05-02 12:07] LABS: NT Pro B Type Natriuretic Pept 67.4 pg/mL (<300)
--- OUTSIDE RECORDS SUMMARY | 2025-05-02 12:12 | XMS_ITS | Encounter Summary ---
Author Organization [employer] Address [address] [place] [address] [address] [place] [address] Care Team Providers Care Clinical Program Coordinator Name Role Phone Anne Caballero MD Primary Care Provider [phone] Jose Huston CNP Primary Care Provider [phone] Encounter Details Date Type Department Care Team (Latest Contact Info) Description 06/07/2022 Abstract [facility] CONVERSIONS Dental, Provider, DDS Social History Tobacco [...] Description 10/17/2025 10:15 AM EST Office Visit [facility] CHC ADULT DENTAL [address] [place] [address] Eddie Rodriguez documented as of this encounter Visit Diagnoses Not on filedocumented in this encounter Care Teams Clinical Program Coordinator Relationship Specialty Start Date End Date Anne Caballero MD [address] [place] [address] PCP - General Family Medicine 07/30/12 04/30/25 Jose Huston CNP [address] [place] [address] PCP - General Family Medicine 05/01/25 documented as of this encounter
--- OUTSIDE RECORDS SUMMARY | 2025-05-02 12:12 | XMS_ITS | Encounter Summary ---
Author Organization [employer] Address [address] [facility] 7t [place] [address] Care Team Providers Care Bundles Hanger Name Role Phone Jose Huston CNP Primary Care Provider [phone] Encounter Details Date Type Department Care Team (Latest Contact Info) Description 05/01/2025 Travel Social History Tobacco Use Types Packs/Day [...] Description 10/17/2025 10:15 AM EST Office Visit [facility] ADULT DENTAL [address] [place] [address] Eddie Rodriguez documented as of this encounter Visit Diagnoses Not on filedocumented in this encounter Additional Health Concerns Assessment Noted Time PHQ-9 Depression Total Score: 0 03/06/20 9:20 AM EDT documented as of this encounter Care Teams Bundles Hanger Relationship Specialty Start Date End Date Jose Huston CNP [address] [place] [address] PCP - General Family Medicine 05/01/25 documented as of this encounter
--- OUTSIDE RECORDS SUMMARY | 2025-05-02 12:12 | XMS_ITS | Encounter Summary ---
Author Organization [employer] Address [address] [place] [address] 7[address] [place] [address] Care Team Providers Care Sign Erector And Repairer Name Role Phone Anne Caballero MD Primary Care Provider Jose Huston CNP Primary Care Provider [phone] Reason for Visit * Reason Comments Med Refill Encounter Details Date Type Department Care Team ([facility] st Contact Info) Description 11/03/2022 Refill [facility] MED & PEDS [address] [place], [place] [phone] Anne Caballero MD [address] [place], [place] [phone] Chronic obstructive pulmonary disease, unspecified COPD type [...] Upcoming Encounters Date Type Department Care Team ([facility] st Contact Info) Description 10/17/2025 10:15 AM EST Office Visit [facility] ADULT DENTAL [address] [place] [address] Eddie Rodriguez documented as of this encounter Visit Diagnoses Diagnosis Chronic obstructive pulmonary disease, unspecified COPD type (CMS/HCC) documented in this encounter Additional Health Concerns Assessment Noted Time PHQ-9 Depression Total Score: 4 10/21/19 23 9:37 AM EST documented as of this encounter Care Teams Sign Erector And Repairer Relationship Specialty Start Date End Date Anne Caballero MD [address] [place] [address] PCP - General Family Medicine 07/30/12 04/30/25 Jose Huston CNP [address] [place] [address] PCP - General Family Medicine 05/01/25 documented as of this encounter
--- OUTSIDE RECORDS SUMMARY | 2025-05-02 12:12 | XMS_ITS | Encounter Summary ---
Author Organization [employer] Address [address] [facility] 7t [place] [address] Care Team Providers Care Legal Writing Professor Name Role Phone Anne Caballero MD Primary Care Provider [phone] Jose Huston CNP Primary Care Provider [phone] Reason for Visit * Reason Comments Med Refill Encounter Details Date Type Department Care Team (Late st Contact Info) Description 03/24/2025 Refill [facility] [address] [place] [address] Anne Caballero MD [address] [place], [place] [phone] Social History Tobacco Use Types Packs/Day Years [...] AM EST Office Visit [facility] ADULT DENTAL [address] [place] [address] Eddie Rodriguez documented as of this encounter Visit Diagnoses Not on filedocumented in this encounter Additional Health Concerns Assessment Noted Time PHQ-9 Depression Total Score: 0 03/06/20 25 9:20 AM EDT documented as of this encounter Care Teams Legal Writing Professor Relationship Specialty Start Date End Date Anne Caballero MD [address] [place] [address] PCP - General Family Medicine 07/30/12 04/30/25 Jose Huston CNP [address] [place] [address] PCP - General Family Medicine 05/01/25 documented as of this encounter
--- OUTSIDE RECORDS SUMMARY | 2025-05-02 12:12 | XMS_ITS | Encounter Summary ---
Author Organization [employer] Address [address] [facility] 7t [place] [address] Care Team Providers Care Welder Boilermaker Name Role Phone Anne Caballero MD Primary Care Provider [phone] Reason for Visit * Reason Onset Date Comments Chart Prep 04/30/2025 Encounter Details Date Type Department Care Team ([facility] st Contact Info) Description 04/30/2025 Telephone [facility] CHC MED & PEDS [address] [place], [place] [phone] Anne Caballero MD [address] [place] [address] Chart Prep Social History Tobacco Use Types Packs/Day Years [...] encounter Miscellaneous Notes * Telephone Encounter - Capri Patton [place] - 04/30/2025 2:37 PM EDT Chart Prep Labs: done Images: done Referrals: complete Vaccines due: due Screenings: not applicable Overdue care gaps: SBIRT documented in this encounter Plan of Treatment Upcoming Encounters Date Type Department Care Team (Late st Contact Info) Description 10/17/2025 10:15 AM EST Office Visit [facility] ADULT DENTAL [address] [place] [address] Eddie Rodriguez documented as of this encounter Visit Diagnoses Not on filedocumented in this encounter Additional Health Concerns Assessment Noted Time PHQ-9 Depression Total Score: 0 03/06/20 9:20 AM EDT documented as of this encounter Care Teams Welder Boilermaker Relationship Specialty Start Date End Date Anne Caballero MD [address] [place] [address] PCP - General Family Medicine 07/30/12 04/30/25 documented as of this encounter
--- OUTSIDE RECORDS SUMMARY | 2025-05-02 12:12 | XMS_ITS | Encounter Summary ---
Author Organization [employer] Address [address] [facility] 7t [place] [address] Care Team Providers Care Operations Officer Trust Department Name Role Phone Jose Huston CNP Primary Care Provider [phone] Reason for Visit * Reason Onset Date Comments Transition Of Care (Tcm) 05/01/2025 Encounter Details Date Type Department Care Team ([facility] Contact Info) Description 05/01/2025 Telephone [facility] CHC MED & PEDS [address] [place], [place] [phone] Anne Caballero MD [address] [place] [address] Transition Of Care (Tcm) Social History Tobacco Use Types Packs/Day Years [...] Telephone Encounter - Capri Patton [place] - 05/01/2025 9:57 AM EDT LM-V to see if could change today appt to telehealth visit per PCP request. PAR's ok to change apptif pt call back. Thanks> documented in this encounter Plan of Treatment Upcoming Encounters Date Type Department Care Team (Late st Contact Info) Description 10/17/2025 10:15 AM EST Office Visit [facility] ADULT DENTAL [address] [place] [address] Eddie Rodriguez documented as of this encounter Visit Diagnoses Not on filedocumented in this encounter Additional Health Concerns Assessment Noted Time PHQ-9 Depression Total Score: 0 03/06/20 9:20 AM EDT documented as of this encounter Care Teams Operations Officer Trust Department Relationship Specialty Start Date End Date Jose Huston CNP [address] [place] [address] PCP - General Family Medicine 05/01/25 documented as of this encounter
--- OUTSIDE RECORDS SUMMARY | 2025-05-02 12:12 | XMS_ITS | Encounter Summary ---
Author Organization [employer] Address [address] [place] [address] [address] [place] [address] Care Team Providers Care Hosiery Bagger Name Role Phone Anne Caballero MD Primary Care Provider [phone] Jose Huston CNP Primary Care Provider [phone] Reason for Visit * Reason Comments Med Refill Encounter Details Date Type Department Care Team ([facility] st Contact Info) Description 11/03/2022 Refill [facility] MED & PEDS [address] [place], [place] [phone] Anne Caballero MD [address] [place], [place] [phone] Chronic obstructive pulmonary disease, unspecified COPD type [...] Description 10/17/2025 10:15 AM EST Office Visit [facility] CHC ADULT DENTAL [address] [place] [address] Eddie Rodriguez documented as of this encounter Visit Diagnoses Diagnosis Chronic obstructive pulmonary disease, unspecified COPD type (CMS/HCC) documented in this encounter Additional Health Concerns Assessment Noted Time PHQ-9 Depression Total Score: 4 10/21/19 23 9:37 AM EST documented as of this encounter Care Teams Hosiery Bagger Relationship Specialty Start Date End Date Anne Caballero MD [address] [place] [address] PCP - General Family Medicine 07/30/12 04/30/25 Jose Huston CNP [address] [place] [address] PCP - General Family Medicine 05/01/25 documented as of this encounter
--- OUTSIDE RECORDS SUMMARY | 2025-05-02 12:12 | XMS_ITS | Encounter Summary ---
Author Organization [employer] Address [address] [place] [address] 7[address] [place] [address] Care Team Providers Care Button Reclaimer Name Role Phone Anne Caballero MD Primary Care Provider [phone] Jose Huston CNP Primary Care Provider [phone] Encounter Details Date Type Department Care Team (Latest Contact Info) Description 04/22/[address] [facility] CONVERSIONS Dental, Provider, DDS Social History [...] Description 10/17/2025 10:15 AM EST Office Visit [facility] CHC ADULT DENTAL [address] [place] [address] Eddie Rodriguez documented as of this encounter Visit Diagnoses Not on filedocumented in this encounter Care Teams Button Reclaimer Relationship Specialty Start Date End Date Anne Caballero MD [address] [place] [address] PCP - General Family Medicine 07/30/12 04/30/25 Jose Huston CNP [address] [place] [address] PCP - General Family Medicine 05/01/25 documented as of this encounter
--- OUTSIDE RECORDS SUMMARY | 2025-05-02 12:13 | XMS_ITS | Clinical Summary ---
Author Organization [facility] Address [address] [facility] [address] [place] [address] Phone Care Team Providers Care Bridge Design Engineer Name Role Phone Anne Caballero MD Primary Care Provider [phone] Allergies No known active allergies Medications amitriptyline [...] patient's age to complete this topic Insurance [id number] One Care Dual SNP ([id number]) [facility] One Care Dual SNP ([id number]) Care Teams Bridge Design Engineer Relationship Specialty Start Date End Date Anne Caballero MD [address] [place] [address] PCP - General Family Medicine 02/21/22
--- OUTSIDE RECORDS SUMMARY | 2025-05-02 12:13 | XMS_ITS | Encounter Summary ---
Author Organization [employer] Address [address] [facility] 7t [place] [address] Care Team Providers Care Operations Welder Name Role Phone Anne Caballero MD Primary Care Provider [phone] Jose Huston CNP Primary Care Provider [phone] Encounter Details Date Type Department Care Team ([facility] st Contact Info) Description 01/27/2023 Abstract [facility] MED & PEDS [address] [place], [place] [phone] Anne Caballero MD 505 [place] [address] Social History Tobacco Use Types Packs/Day Years [...] Description 10/17/2025 10:15 AM EST Office Visit [facility] ADULT DENTAL [address] [place] [address] Eddie Rodriguez documented as of this encounter Visit Diagnoses Not on filedocumented in this encounter Additional Health Concerns Assessment Noted Time PHQ-9 Depression Total Score: 4 10/21/19 23 9:37 AM EST documented as of this encounter Care Teams Operations Welder Relationship Specialty Start Date End Date Anne Caballero MD [address] [place] [address] PCP - General Family Medicine 07/30/12 04/30/25 Jose Huston CNP 505 [place] [address] PCP - General Family Medicine 05/01/25 documented as of this encounter
--- OUTSIDE RECORDS SUMMARY | 2025-05-02 12:13 | XMS_ITS | Encounter Summary ---
Author Organization [email or web address] Address [address] [place] [address] 7t [place] [address] Care Team Providers Care Ultrasound Specialist Name Role Phone Anne Caballero MD Primary Care Provider [phone] Jose Huston CNP Primary Care Provider [phone] Encounter Details Date Type Department Care Team (Latest Contact Info) Description 11/13/2018 Abstract [facility] CONVERSIONS Dental, Provider, DDS Social History [...] Description 10/17/2025 10:15 AM EST Office Visit [facility] CHC ADULT DENTAL 505 [place] [address] Eddie Rodriguez documented as of this encounter Visit Diagnoses Not on filedocumented in this encounter Care Teams Ultrasound Specialist Relationship Specialty Start Date End Date Anne Caballero MD [address] [place] [address] PCP - General Family Medicine 07/30/12 04/30/25 Jose Huston CNP 505 [place] [address] PCP - General Family Medicine 05/01/25 documented as of this encounter
--- OUTSIDE RECORDS SUMMARY | 2025-05-02 12:13 | XMS_ITS | Encounter Summary ---
Author Organization [employer] Address [address] [place] [address] 7t [place] [address] Care Team Providers Care Area Director Of Home Health Sales Name Role Phone Anne Caballero MD Primary Care Provider [phone] Jose Huston CNP Primary Care Provider [phone] Encounter Details Date Type Department Care Team (Late Contact Info) Description 12/30/2022 Orders Only [facility] MED & PEDS [address] [place] [address] Shruti Piña LPN Social History Tobacco Use [...] Description 10/17/2025 10:15 AM EST Office Visit [facility] ADULT DENTAL [address] [place] [address] Eddie Luna documented as of this encounter Visit Diagnoses Not on filedocumented in this encounter Additional Health Concerns Assessment Noted Time PHQ-9 Depression Total Score: 4 10/21/19 23 9:37 AM EST documented as of this encounter Care Teams Area Director Of Home Health Sales Relationship Specialty Start Date End Date Anne Caballero MD [address] [place] [address] PCP - General Family Medicine 07/30/12 04/30/25 Jose Huston CNP 505 [place] [address] PCP - General Family Medicine 05/01/25 documented as of this encounter
--- OUTSIDE RECORDS SUMMARY | 2025-05-02 12:13 | XMS_ITS | Clinical Summary ---
Author Organization [employer] Address [address] [place] [address] 7t [place] [address] Care Team Providers Care Curriculum Assistant Name Role Phone Jose Huston CNP Primary Care Provider [phone] Allergies No known active allergies Medications Fluticasone [...] WHEEZING 18 g 3 04/09/20 25 Active busPIRone (Buspar) 5 MG tabletIndicati ons:Anxiety Take 1 tablet (5 mg) by mouth 2 times daily. 60 tablet 11 04/10/20 25 2025 Active clonazePAM (KlonoPIN) 0.5 MG tabletIndicati ons:Anxiety Take 0.5 tablets (0.25 mg) by mouth if needed each day for anxiety. 15 tablet 05/01/20 25 2024 Active albuterol 108 (90 Base) MCG/ACT inhalerIndicat ions:Chronic obstructive pulmonary disease, unspecified COPD type (CMS/HCC) Inhale 2 puffs every 4 (four) hours if needed for wheezing. 25.5 g 3 02/26/20 24 2024 Discontinued clonazePAM (KlonoPIN) 0.5 MG tabletIndicati ons:Anxiety Take 0.5 tablets (0.25 mg) by mouth if needed each day for anxiety. 15 tablet 04/10/20 25 2024 Discontinued(R eorder (will not trigger notification to Pharmacy)) Active Problems Problem Noted Date Diagnosed Date [...] Encounters Date Type Department Care Team Description 05/01/2025 11:30 AM EDT Telemedicine [facility] MED & PEDS [address] [place] [address] Anne Caballero MD Anxiety 05/01/2025 Travel 05/01/2025 Telephone [facility] MED & PEDS [address] [place] [address] Anne Caballero MD Transition Of Care (Tcm) 04/30/2025 Telephone [facility] MED & PEDS [address] [place] [address] Anne Caballero MD Chart Prep 04/15/2025 10:00 AM EDT Office Visit [facility] ADULT DENTAL [address] [place] [address] Eddie Rodriguez Dental calculus (Primary Dx) 04/10/2025 2:00 PM EDT Office Visit [facility] MED & PEDS [address] [place] [address] Killian Rodriguez MD Anxiety (Primary Dx); Grief reaction 04/10/2025 Travel 04/09/2025 Telephone [facility] MED[facility] [address] [place] [address] Anne Caballero MD Nurse Triage 04/09/2025 Refill [facility] [address] [place] [address] Anne Caballero MD Chronic obstructive pulmonary disease, unspecified COPD type (CMS/HCC) 03/24/2025 Refill [facility] [address] [place] [address] Anne Caballero MD 03/11/2025 Refill [facility] [address] [place] [address] Anne Caballero MD 03/06/2025 9:00 AM EDT Office Visit [facility] CH[facility] MED & PEDS [address] [place] [address] Anne Caballero MD Benign hypertension (Primary Dx); Chronic obstructive pulmonary disease, unspecified COPD type (CMS/HCC); Hyperthyroidism; Encounter for annual wellness visit 03/06/2025 Travel 03/05/2025 Refill [facility] [address] [place] [address] Anne Caballero MD 03/03/2025 Orders Only [facility] External Provider, [facility] 02/26/2025 Patient Outreach [facility] [address] [place] [address] Anne Caballero MD Pre-visit Planning (SDOH screening [...] Sign Reading Time Taken Comments Blood Pressure 110/60 04/15/2025 10:01 AM EDT Pulse 75 04/15/2025 10:01 AM EDT Temperature 36.3 C (97.3 F) 04/10/2025 [...] Description 10/17/2025 10:15 AM EST Office Visit [facility] ADULT DENTAL [address] [place] [address] Eddie Rodriguez Health Maintenance Due Date Last Done Comments CT Colonography 1955 Colonoscopy 1955 Dental X-Ray: Full Mouth 1955 FIT 1955 Sigmoidoscopy 1955 Alcohol/Substance Use Screening 1965 [...] 12/20/2021, 03/09/2016 COVID-19 Vaccine (3 - season) 2025 11/10/2020, 10/08/2020 Influenza Vaccine (#1) 2025 , 06/17/2020, 07/06/2018, Additional history exists FOBT 06/12/2025 06/12/2024 Dental Oral Exam 10/14/2025 04/15/2025 Dental Prophylaxis 10/14/2025 04/15/2025, 0 10/07/2024, 04/04/2024, Additional history exists SDOH Screening 02/26/2026 02/26/2025 Lung Cancer Screening 03/05/2026 03/05/2025 Depression Screening 03/06/2026 03/06/2025, 03/06/20 Tobacco Screening 04/15/2026 04/15/2025 Dental X-Ray: Bitewings 04/16/2026 04/15/2025, 04/04 Mammogram 06/27/2026 06/27/2024, 06/08/2022, 01/12/2023, Additional history exists Colorectal Cancer Screening 06/12/2027 FIT DNA/Cologuard 06/12/2027 06/12/2024 Lipid Panel 04/11/2030 04/11/2025, 09/14, 10/20/2022, Additional history exists DTaP/Tdap/Td Vaccines (3 - [...] Procedure Name Priority Date/Time Associated Diagnosis Comments 7 L RESIN-BASED COMPOSITE - 1 SURF, ANTERIOR Routine 04/15/2025 10:00 AM EDT COMPREHENSIVE PERIODONTAL EVALUATION - NEW OR ESTABLISHED PATIENT Routine 04/15/2025 10:00 AM EDT PERIODIC ORAL EVALUATION - ESTABLISHED PATIENT Routine 04/15/2025 10:00 AM EDT CASE PRESENTATION, DETAILED AND EXTENSIVE TREATMENT PLANNING Routine 04/15/2025 10:00 AM EDT ORAL HYGIENE INSTRUCTIONS Routine 04/15/2025 10:00 AM EDT INTRAORAL - PERIAPICAL FIRST RADIOGRAPHIC IMAGE Routine 04/15/2025 10:00 AM EDT INTRAORAL - PERIAPICAL EACH ADDITIONAL RADIOGRAPHIC IMAGE Routine 04/15/2025 10:00 AM EDT BITEWINGS - 4 RADIOGRAPHIC IMAGES Routine 04/15/2025 10:00 AM EDT PROPHYLAXIS - ADULT Routine 04/15/2025 1 0:00 AM EDT TSH W/REFLEX TO FT4 Routine 04/11/2025 1 0:40 AM EDT Hyperthyroidism LIPID PANEL, STANDARD Routine 04/11/2025 10:40 AM EDT Benign hypertension HEPATIC FUNCTION PANEL Routine 04/11/2025 10:40 AM EDT Benign hypertension BASIC METABOLIC PANEL Routine 04/11/2025 10:40 AM EDT Benign hypertension CT CHEST WO CONTRAST Routine 03/04/2025 11:11 AM EDT BI MAMMOGRAM SCREENING TOMOSYNTHESIS BILATERAL Routine 06/27/2024 3:41 PM EST LAB COLOGUARD COLON CANCER SCREEN Routine 06/12/2024 12:30 PM EDT Encounter for screening for malignant neoplasm of colon from Last 3 Months or Most Recently Relevant to Health Maintenance Results * TSH with Reflex to Free T4 (04/11/2025 10:40 AM EDT) Pathologist [facility] TSH reflex Free T4 3.73 0.32 - 4.0 uIU/mL [facility] Blood Venous blood specimen / Unknown 04/11/2025 10:40 AM EDT 04/11/2025 11:52 AM EDT us Anne Caballero MD LAB BLOOD ORDERABLES Final Resul t [facility] [address] [place] [phone] * (ABNORMAL) Hepatic Function Panel (04/11/2025 10:40 AM EDT) Pathologist [facility] Bilirubin, Total 0.6 0.0 - 1.0 mg/dL [facility] Bilirubin, Direct 0.2 0.0 - 0.5 mg/dL [facility] Aspartate Amino Transferase 20 5 - 31 U/L [facility] Alanine Aminotransferase 9 0 - 31 U/L [facility] Total Protein 6.3(L) 6.5 - 8.0 g/dL [facility] Albumin Level 3.8 3.5 - 5.0 g/dL [facility] Alkaline Phosphatase 60 39 - 117 U/L [facility] Blood Venous blood specimen / Unknown 04/11/2025 10:40 AM EDT 04/11/2025 11:52 AM EDT Anne Caballero MD LAB BLOOD ORDERABLES Final Resul t Performing Organization Address [facility] Co de Phone Number [facility] [address] [place] [address] [phone] * (ABNORMAL) Lipid Panel, Standard (04/11/2025 10:40 AM EDT) Triglycerides 104 <150 mg/dL [facility] Comment:Desirable Triglyceri de: less than 150 mg/dLBorderline High Triglyceride 150-199 mg/dLHigh Triglyceride: 200-499 mg/dLVery High Triglyceride: greater than or equal to 5OO mg/dL Cholesterol 253(H) <200 mg/dL [facility] Comment:Desirable Cholestero l: less than 200 mg/dLBorderline High Cholesterol: 200-239 mg/dLHigh Cholesterol: greater than 239 mg/dL LDL Cholesterol Calculated 160(H) <100 mg/dL [facility] Comment:Desirable LDL: less than 100 mg/dLNear Optimal/Above Optimal LDL: 110- 129 mg/dLBorderline High LDL: 130-159 mg/dLHigh LDL: 160-189 mg/dLVery High LDL: greater than or equal to 190 mg/dL HDL Cholesterol 73 >40 mg/dL [facility] Comment:Desirable HDL: great er than 40 mg/dL Note: This HDL assay may give artificially low results in patients with liver disease. Blood Venous blood specimen / Unknown 04/11/2025 10:40 AM EDT 04/11/2025 11:52 AM EDT Anne Caballero MD LAB BLOOD ORDERABLES Final Resul t Performing Organization Address City/[facility]/ZIP Co de Phone Number [facility] [address] [place] [phone] [phone] * (ABNORMAL) Basic Metabolic Panel (04/11/2025 10:40 AM EDT) Sodium 142 135 - 145 mmol/L [facility] Potassium 3.8 3.3 - 5.1 mmol/L [facility] Chloride 105 96 - 108 mmol/L [facility] Carbon Dioxide 30(H) 22 - 29 mmol/L [facility] Anion Gap 11(L) 12 - 20 [facility] Urea Nitrogen (BUN) 18(H) 9 - 16 mg/dL [facility] Creatinine, Serum 0.98 0.5 - 1.4 mg/dL [facility] Estimated Glomerular Filt Rate 56 [facility] Comment:Chronic Kidney Disea se: Estimated GFR < 60 mL/min/1.09p2Fehxtg Kidney Disease: Estimated GFR < 15 mL/min/1.73m2 Glucose 67 60 - 115 mg/dL [facility] Calcium 9.2 8.4 - 10.2 mg/dL [facility] Blood Venous blood specimen / Unknown 04/11/2025 10:40 AM EDT 04/11/2025 11:52 AM EDT us Anne Caballero MD LAB BLOOD ORDERABLES Final Resul t [facility] [address] [place] [address] [phone] * CT Chest w/o Contrast (03/04/2025 11:11 AM EDT) Anatomical Region Laterality Modality Body, Chest Computed Tomogra phy 03/04/2025 11:1 1 AM EDT Narrative 03/04/2025 11:12 AM EDT [place] [address] CT Scan Report Signed Patient: Juana Lopez MR#: [id number] 34 : 1955 Acct:[id number] Age/Sex: 69 / F ADM Date: 03/03/25 Loc: HO.CT Attending Dr: Alka Robles PRICE CHECKER Ordering Physician: Alka Robles NP Date of Service: 03/03/25 Procedure(s): CT chest wo IV con Accession Number(s): [id number] cc: Anne Caballero MD; Alka Robles NP Report Number: [id number]: Total DLP = 149.00 mGy-cm CLINICAL HISTORY: [...] 03/04/25 1112 DD/ 1111 TD/TT: 03/04/25 1111 Theoretical Physics Teacher: Procedure Note Donotuseinterpreter, Image - 03/04/[address] [place] [address] [address] Scan Report Signed Patient: Fabian Lopez#: [id number] [birth year] : 4Acct:[id number] Age/Sex: 69 / FADM Date: 03/03/25 Loc: HO.CT Attending Dr: Alka Robles PRICE CHECKER Ordering Physician: Alka Robles NP Date of Service: 03/03/25 Procedure(s): CT chest wo IV con Accession Number(s): [id number] cc: Anne Caballero MD; Alka Robles NP Report Number: [id number]: Total DLP = 149.00 mGy-cm CLINICAL HISTORY: [...] 03/04/25 1112 DD/ 1111 TD/TT: 03/04/25 1111 Theoretical Physics Teacher: [facility] External Provider IMG CT PROCEDURES Final Result * BI Mammogram Screening Tomosynthesis Bilateral (06/27/2024 3:41 PM EST) Anatomical Region Laterality Modality Breast Bilateral Mammography 06/27/2024 3:41 PM EST Narrative 07/05/2024 12:50 PM EST [facility]'s [address] [place] [address] Mammography Report Signed Patient: Juana Lopez MR#: [id number] 34 : 1955 Acct:[id number] Age/Sex: 68 / F ADM Date: 06/27/24 Loc: HO.MAMMO Attending Dr: Anne Caballero MD Ordering Physician: Anne Caballero MD Results: 1Negati ve Date of Service: 06/27/24 Follow Up: 1 Year From Orig inal Mammogram Procedure(s): MM tomosynthesis screening BI Accession Number(s): [id number] cc: Anne Caballero MD EXAMINATION: MM SCREENING [...] by: Celestina Tan DO 07/05/2024 12:47 PM [facility] Dictated By: Celestina Tan DO Signed By: <Electronically signed by Celestina Tan DO in OV> 07/05/24 1247 DD/ 1541 TD/TT: 06/27/24 1554 Theoretical Physics Teacher: Procedure Note Donotuseinterpreter, Image - 07/05/2024 [place] [facility] [address] [place], [place] [address] Mammography Report Signed Patient: Fabian Lopez#: [id number] [birth year] : 4Acct:[id number] Age/Sex: 68 / FADM Date: 06/27/24 Loc: MAMMO Attending Dr: Anne Caballero MD Ordering Physician: Anne Caballero MDResults: 1Negati ve Date of Service: 06/27/24Follow Up: 1 Year From Orig ina Mammogram Procedure(s): MM tomosynthesis screening BI Accession Number(s): [id number] cc: Anne Caballero MD EXAMINATION: MM SCREENING [...] 07/05/24 1247 DD/ 1541 TD/TT: 06/27/24 1554 Theoretical Physics Teacher: Anne Caballero MD [facility] BI PROCEDURES Final Result * Cologuard?? colon cancer screening (06/12/2024 12:30 PM EDT) Cologuard Result Negative Negative 06/20/20 10:31 AM EST [employer] (CLIA #:[id number]) Comment: NEGATIVE TEST RESULT. A negative Cologuard [...] were screened with both Cologuard and colonoscopy. (Huog Bird, N Engl J Med 2014;370(14):5763-4904) The normal value (reference range) for this assay is negative. COLOGUARD RE-SCREENING RECOMMENDATION: Periodic colorectal cancer screening is an important part of preventive healthcare for asymptomatic individuals at average risk for colorectal cancer. Following a negative Cologuard result, the [place] [employer] Society and U.S. Multi-Society Task Force screening guidelines recommend a Cologuard re-screening interval of 3 years. References: [place] [employer] Guideline for Colorectal Cancer Screening: https://www.cancer.org/cancer/nchvw-zygajb-lkzrsr/gpqnqends-wmuewmhsp-tkbpmwu/ac s-rec ommendations.html.; Brandon DK, Mark CR, Cathleen GerardK, Colorectal Cancer Screening: Recommendations for Physicians and Patients from the U.S. Multi-Society Task Force on Colorectal Cancer Screening , Am J Gastroenterology 2017; 112:1792-6768. TEST DESCRIPTION: Composite algorithmic analysis of stool [...] T. et al, N Engl J Med 2014;370(14):5250-2897.) Cologuard may produce a false negative or false positive result (no colorectal cancer or precancerous polyp present at colonoscopy follow up). A negative Cologuard test result does not guarantee the absence of CRC or advanced adenoma (pre-cancer). The current Cologuard screening interval is every 3 years. ([place] [employer] Society and U.S. Multi-Society Task Force). Cologuard performance data in a 10,000 patient pivotal study using colonoscopy as the reference method can be accessed at the following location: www.[employer]ats[employer].com/results. Additional description of the Cologuard test process, warnings and precautions can be found at www.gumioguard.Playfire. Stool specimen (specimen) 06/12/2024 12:30 PM EDT 06/14/2024 1:04 PM EDT Anne Caballero MD LAB MOLECULAR DIAGNOSTICS ORDERA WHIT Final Result [facility] (CLIA #:[id number]) She[address] [place] [address], from Last 3 Months or Most Recently Relevant to Health Maintenance Insurance [facility] LONG TERM OPTIONS (O D-SNP) [place] [id number] DENTAL - [facility] Care Teams Curriculum Assistant Relationship Specialty Start Date End Date Jose Huston CNP [address] [place] [address] PCP - General Family Medicine 05/01/25
--- OUTSIDE RECORDS SUMMARY | 2025-05-02 12:13 | XMS_ITS | Encounter Summary ---
Author Organization [employer] Address [address] [facility] 7t [place] [address] Care Team Providers Care Business Analytics Specialist Name Role Phone Anne Caballero MD Primary Care Provider [phone] Jose Huston CNP Primary Care Provider [phone] Reason for Visit * Reason Onset Date Comments FYI 12/11/2023 Encounter Details Date Type Department Care Team (Late st Contact Info) Description 12/11/2023 Telephone [facility] [address] [place] [address] Anne Caballero MD [address] [place], [place] [phone] FYI Social History Tobacco Use Types Packs/Day [...] FYI below. * Telephone Encounter - Tian oCrtes - 12/11/2023 3:26 PM EDT Tc constantino Pizano at [facility] calling to inform the Provider the patient was discharged from [facility] on 11/28 documented in this encounter Plan of Treatment Upcoming Encounters Date Type Department Care Team (Late st Contact Info) Description 10/17/2025 10:15 AM EST Office Visit [facility] ADULT DENTAL [address] [place] [address] Eddie Rodriguez documented as of this encounter Visit Diagnoses Not on filedocumented in this encounter Additional Health Concerns Assessment Noted Time PHQ-9 Depression Total Score: 4 10/21/19 23 9:37 AM EST documented as of this encounter Care Teams Business Analytics Specialist Relationship Specialty Start Date End Date Anne Caballero MD [address] [place] [address] PCP - General Family Medicine 07/30/12 04/30/25 Jose Huston CNP [address] [place] [address] PCP - General Family Medicine 05/01/25 documented as of this encounter
--- OUTSIDE RECORDS SUMMARY | 2025-05-02 12:13 | XMS_ITS | Encounter Summary ---
Author Organization [facility] Address [address] [place] [address] Phone Care Team Providers Care Trade Economist Name Role Phone Anne Caballero MD Primary Care Provider [phone] Encounter Details Date Type Department Care Team (Late st Contact Info) Description 03/29/2022 Documentation Only [facility] [address] [place] [address] Priscila Collins MD Social History Tobacco [...] on filedocumented in this encounter Care Teams Trade Economist Relationship Specialty Start Date End Date Anne Caballero MD [address] [place] [address] PCP - General Family Medicine 02/21/22 documented as of this encounter
--- OUTSIDE RECORDS SUMMARY | 2025-05-02 12:13 | XMS_ITS | Encounter Summary ---
Author Organization [employer] Address [address] [place] [address] 7t [place] [address] Care Team Providers Care Desktop Support Consultant Name Role Phone Anne Caballero MD Primary Care Provider [phone] Jose Huston CNP Primary Care Provider [phone] Reason for Visit * Reason Comments Med Refill Encounter Details Date Type Department Care Team ([facility] st Contact Info) Description 01/30/2023 Refill [facility] PEDS [address] [place] [address] Anne Caballero MD [address] [place] [address] Social History Tobacco Use Types Packs/Day Years [...] 10:15 AM EST Office Visit [facility] ADULT DENTAL [address] [place] [address] Eddie Rodriguez documented as of this encounter Visit Diagnoses Not on filedocumented in this encounter Additional Health Concerns Assessment Noted Time PHQ-9 Depression Total Score: 4 10/21/19 23 9:37 AM EST documented as of this encounter Care Teams Desktop Support Consultant Relationship Specialty Start Date End Date Anne Caballero MD [address] [place] [address] PCP - General Family Medicine 07/30/12 04/30/25 Jose Huston CNP [address] [place] [address] PCP - General Family Medicine 05/01/25 documented as of this encounter
--- OUTSIDE RECORDS SUMMARY | 2025-05-02 12:13 | XMS_ITS | Encounter Summary ---
Author Organization [employer] Address [address] [facility] 7t [place] [address] Care Team Providers Care Clinical Nursing Instructor Name Role Phone Anne Caballero MD Primary Care Provider [phone] Jose Huston CNP Primary Care Provider [phone] Reason for Visit * Reason Onset Date Comments Med Refill 10/20/2023 Encounter Details Date Type Department Care Team ([facility] st Contact Info) Description 10/20/2023 Refill [facility] MED & PEDS [address] [place], [place] [phone] Killian Rodriguez MD [address] [place], [place] [phone] Chronic obstructive pulmonary disease, unspecified COPD type [...] Visit [facility] ADULT DENTAL [address] [place] [address] Eddie Rodriguez documented as of this encounter Visit Diagnoses Diagnosis Chronic obstructive pulmonary disease, unspecified COPD type (CMS/HCC) documented in this encounter Additional Health Concerns Assessment Noted Time PHQ-9 Depression Total Score: 4 10/21/19 23 9:37 AM EST documented as of this encounter Care Teams Clinical Nursing Instructor Relationship Specialty Start Date End Date Anne Caballero MD [address] [place] [address] PCP - General Family Medicine 07/30/12 04/30/25 Jose Huston CNP [address] [place] [address] PCP - General Family Medicine 05/01/25 documented as of this encounter
--- OUTSIDE RECORDS SUMMARY | 2025-05-02 12:13 | XMS_ITS | Encounter Summary ---
Author Organization [employer] Address [address] [place] [address] 7t [place] [address] Care Team Providers Care Study Assistant Name Role Phone Anne Caballero MD Primary Care Provider [phone] Jose Huston CNP Primary Care Provider [phone] Encounter Details Date Type Department Care Team (Late st Contact Info) Description 07/29/2022 Orders Only [facility] [address] [place], [place] [phone] Hannah Berger LPN Social History Tobacco Use [...] Department Care Team (Late Contact Info) Description 10/17/2025 10:15 AM EST Office Visit [facility] [address] [place] [address] Eddie Rodriguez documented as of this encounter Visit Diagnoses Not on filedocumented in this encounter Care Teams Study Assistant Relationship Specialty Start Date End Date Anne Caballero MD [address] [place] [address] PCP - General Family Medicine 07/30/12 04/30/25 Jose Huston CNP [address] [place] [address] PCP - General Family Medicine 05/01/25 documented as of this encounter
--- OUTSIDE RECORDS SUMMARY | 2025-05-02 12:13 | XMS_ITS | Encounter Summary ---
Author Organization [employer] Address [address] [place] [address] 7t [place] [address] Care Team Providers Care Buffer Inflated Pad Name Role Phone Anne Caballero MD Primary Care Provider Jose Huston CNP Primary Care Provider [phone] Encounter Details Date Type Department Care Team (Late Contact Info) Description 09/08/2022 Orders Only [facility] [address] [place] [address] Lainey Lee LPN Social History Tobacco Use [...] Description 10/17/2025 10:15 AM EST Office Visit [facility] [address] [place] [address] Eddie Rodriguez documented as of this encounter Visit Diagnoses Not on filedocumented in this encounter Care Teams Buffer Inflated Pad Relationship Specialty Start Date End Date Anne Caballero MD [address] [place] [address] PCP - General Family Medicine 07/30/12 04/30/25 Jose Huston CNP [address] [place] [address] PCP - General Family Medicine 05/01/25 documented as of this encounter
--- OUTSIDE RECORDS SUMMARY | 2025-05-02 12:13 | XMS_ITS | Encounter Summary ---
Author Organization [employer] Address [address] [facility] 7t [place] [address] Care Team Providers Care Trash Collector Name Role Phone Anne Caballero MD Primary Care Provider [phone] Jose Huston CNP Primary Care Provider [phone] Reason for Visit * Reason Onset Date Comments Hospital Follow-up 10/10/2023 Encounter Details Date Type Department Care Team (Late st Contact Info) Description 10/10/2023 Telephone [facility] [address] [place] [address] Anne Caballero MD [address] [place], [place] [phone] Hospital Follow-up Social History Tobacco Use Types [...] from pt requesting a HDF appt. [place] [facility] [place] of admission: 10/03/2023 Discharge date: 10/05/2023 Diagnosed: COPD documented in this encounter Plan of Treatment Upcoming Encounters Date Type Department Care Team (Late st Contact Info) Description 10/17/2025 10:15 AM EST Office Visit [facility] [address] [place] [address] Eddie Rodriguez documented as of this encounter Visit Diagnoses Not on filedocumented in this encounter Additional Health Concerns Assessment Noted Time PHQ-9 Depression Total Score: 4 10/21/19 23 9:37 AM EST documented as of this encounter Care Teams Trash Collector Relationship Specialty Start Date End Date Anne Caballero MD [address] [place] [address] PCP - General Family Medicine 07/30/12 04/30/25 Jose Huston CNP [address] [place] [address] PCP - General Family Medicine 05/01/25 documented as of this encounter
--- OUTSIDE RECORDS SUMMARY | 2025-05-02 12:13 | XMS_ITS | Encounter Summary ---
Author Organization [employer] Address [address] [facility] 7t [place] [address] Care Team Providers Care Commercial Credit Specialist Name Role Phone Anne Caballero MD Primary Care Provider [phone] Jose Huston CNP Primary Care Provider [phone] Reason for Visit * Reason Onset Date Comments Results 01/27/2023 Encounter Details Date Type Department Care Team ([facility] st Contact Info) Description 01/27/2023 Telephone [facility] [address] [place], [place] [phone] Anne Caballero MD [address] [place] [address] Results Social History Tobacco Use Types Packs/Day [...] Description 10/17/2025 10:15 AM EST Office Visit [facility] [address] [place] [address] Eddie Rodriguez documented as of this encounter Visit Diagnoses Not on filedocumented in this encounter Additional Health Concerns Assessment Noted Time PHQ-9 Depression Total Score: 4 10/21/19 9:37 AM EST documented as of this encounter Care Teams Commercial Credit Specialist Relationship Specialty Start Date End Date Anne Caballero MD [address] [place] [address] PCP - General Family Medicine 07/30/12 04/30/25 Jose Huston CNP [address] [place] [address] PCP - General Family Medicine 05/01/25 documented as of this encounter
--- OUTSIDE RECORDS SUMMARY | 2025-05-02 12:13 | XMS_ITS | Encounter Summary ---
Author Organization [employer] Address [address] [facility] 7t [place] [address] Care Team Providers Care Wetlands Technician Name Role Phone Anne Caballero MD Primary Care Provider [phone] Jose Huston CNP Primary Care Provider [phone] Reason for Visit * Reason Onset Date Comments Med Refill 03/13/2024 Encounter Details Date Type Department Care Team (Late st Contact Info) Description 03/13/2024 Refill [facility] [address] [place], [place] [phone] Anne Caballero MD [address] [place], [place] [phone] Chronic obstructive pulmonary disease, unspecified COPD type [...] housing situation today? I have paulino dilan 12/29/[address] you li [...] 10:15 AM EST Office Visit [facility] [address] [place] [address] Eddie Rodriguez documented as of this encounter Visit Diagnoses Diagnosis Chronic obstructive pulmonary disease, unspecified COPD type (CMS/HCC) documented in this encounter Additional Health Concerns Assessment Noted Time PHQ-9 Depression Total Score: 4 10/21/19 23 9:37 AM EST documented as of this encounter Care Teams Wetlands Technician Relationship Specialty Start Date End Date Anne Caballero MD [address] [place] [address] PCP - General Family Medicine 07/30/12 04/30/25 Jose Huston CNP [address] [place] [address] PCP - General Family Medicine 05/01/25 documented as of this encounter
--- OUTSIDE RECORDS SUMMARY | 2025-05-02 12:13 | XMS_ITS | Encounter Summary ---
Author Organization [employer] Address [address] [facility] 7t [place] [address] Care Team Providers Care Mosaic Floor Layer Name Role Phone Anne Caballero MD Primary Care Provider [phone] Jose Huston CNP Primary Care Provider [phone] Reason for Visit * Reason Onset Date Comments FYI 01/02/2024 Encounter Details Date Type Department Care Team (Late st Contact Info) Description 01/02/2024 Telephone [facility] [address] [place] [address] Anne Caballero MD [address] [place], [place] [phone] FYI Social History Tobacco Use Types Packs/Day [...] Miscellaneous Notes * Telephone Encounter - Cristopher uDpont RN - 01/02/2024 1:25 PM EDT Please see FYI below. * Telephone Encounter - Shante Chatman - 01/02/2024 1:19 PM EDT Tc from [facility] calling to inform PCP pt will be discharge today 01/01 from PT documented in this encounter Plan of Treatment Upcoming Encounters Date Type Department Care Team (Late st Contact Info) Description 10/17/2025 10:15 AM EST Office Visit [facility] [address] [place] [address] Eddie Rodriguez documented as of this encounter Visit Diagnoses Not on filedocumented in this encounter Additional Health Concerns Assessment Noted Time PHQ-9 Depression Total Score: 4 10/21/19 23 9:37 AM EST documented as of this encounter Care Teams Mosaic Floor Layer Relationship Specialty Start Date End Date Anne Caballero MD [address] [place] [address] PCP - General Family Medicine 07/30/12 04/30/25 Jose Huston CNP [address] [place] [address] PCP - General Family Medicine 05/01/25 documented as of this encounter
[2025-05-02 12:28] LABS: Troponin-I High Sensitivity < 2.7 ng/L (<3.5-17.0)
--- NOTE | 2025-05-02 12:31 | PC.NURSE ---
Patient is a 69 year old female current minimal smoker with 30+ pack year history, with underlying severe COPD, HTN and HLD. Presents with increasing sob for the past several week. Patient alert and oriented, but extremely anxious. monitor technician applied and NSR noted. Patient appears dyspneic and unsure if anxiety isnt a component. Lungs with diffuse wheezing throughout. Respirations even and sl labored. Abdomen soft, non-tender with positive bowel sounds. Positive pedal pulses with no edema.
--- NOTE | 2025-05-02 13:07 | MHC.CM.ED ---
Patient is currently in ER. Received notification from registration that patient is looking to complete new HCP. Met with patient. HCP completed, signed and witnessed. Original given to patient. Copy scanned into medical record by registration.
[2025-05-02] MEDS: Albuterol Sulfate 2.5 MG, Albuterol Sulfate (0.083%) 2.5 MG 5 MG INHALE (13:48)
--- NOTE | 2025-05-02 14:12 | PC.NURSE ---
Patient noted to desaturate to the mid 80's. Placed on o2 therapy at 2L via NC
--- NOTE | 2025-05-02 15:12 | PM.IMHP ---
History of Present Illness Date of Service: 05/02/25 Attending physician on admission: Kristy Ferraro Chief Complaint: sob This is a 69-year-old female with a history of COPD who presents to the emergency department with shortness of breath. Patient reports shortness of breath on and on for the past few weeks. She reports a cough productive of light yellow phlegm. Her cough is increased in frequency and her phlegm is thicker than normal. She continues to smoke approximately 2 cigarettes daily. She denies any recent sick contacts, she denies any fever. In the emergency department chest x-ray was negative for pneumonia. She does not use oxygen at home and her oxygen saturation dropped as low as 84% on room air, she was initially tachycardic and tachypneic on arrival. She received multiple breathing treatments, IV steroids and empiric IV antibiotics. He continued to have persistent wheezing and dyspnea and she will be admitted for further management. Review of Systems Review of Systems: Yes all other systems are reviewed and are negative Constitutional: Constitutional: Denies chills and Denies fever(s) ENT: Denies dizziness Cardiovascular: Cardiovascular: Denies chest pain, Denies palpitations, Reports dyspnea and Reports dyspnea on exertion Respiratory: Respiratory: Reports cough, Reports dyspnea and Reports dyspnea on exertion Neurologic: Denies dizziness Endocrine: Endocrine: Denies palpitations [facility] Medical History COPD (chronic obstructive pulmonary disease) Family History Mother Breast CA Surgical History H/O total hysterectomy Hx of colonoscopy (~05/2019) History of tubal ligation Social History Household Members: None Household Members Other:: goes to significant other house 3x a week Housing: Apartment Housing Other:: 2 family house Do you presently have visiting nurse or other home services: Yes (RN [employer]) Alcohol intake: current Alcohol intake frequency: does not drink Patient Tobacco Use Status: Current everyday Tobacco user Tobacco use type: Cigarette Cigarette Packs Per Day: 0.25 Cigarettes Per Day: 5 Smoked in Last 30 Days: Yes e-Cigarette/Vaping Use: Never Used Second Hand Smoke Exposure: No Substance Use Type: Marijuana Advance Directives: Yes Advance Directives on File: Yes Advance Directives Date on File: 05/02/25 service: No Current occupational status: retired Meds Allergies Allergy/AdvReac Type Severity Reaction Status Date / Time No Known Allergies (No Known Allergy Verified 05/02/25 11:21 Allergies*) Home Medications ?Medication ?Instructions ?Recorded ?Confirmed ?Last Taken ?Type simvastatin 10 mg tablet 10 mg PO BEDTIME 01/28/21 05/02/25 07/16/24 History albuterol sulfate 90 mcg/actuation 2 puff PO Q4H PRN Shortness Of 02/03/22 05/02/25 07/20/23 History aerosol inhaler Breath Or Wheezing amlodipine 5 mg tablet 5 mg PO DAILY 02/03/22 05/02/25 07/17/24 History cholecalciferol (vitamin D3) 25 25 mcg PO DAILY 07/21/23 05/02/25 07/17/24 History mcg (1,000 unit) capsule (Vitamin D3) cetirizine 10 mg tablet 10 mg PO DAILY PRN ALLERGIES 07/17/24 05/02/25 07/17/24 History nicotine 21 mg/24 hr daily 21 mg transdermal DAILY PRN 07/17/24 05/02/25 Unknown History transdermal patch Smoking Cessation buspirone 5 mg tablet 5 mg PO BID 05/02/25 05/02/25 Unknown History celecoxib 200 mg capsule 200 mg PO DAILY PRN Pain (Scale 05/02/25 05/02/25 Unknown History Score 4-6) clonazepam 0.5 mg tablet 0.25 mg PO DAILY PRN Anxiety 05/02/25 05/02/25 Unknown History tizanidine 2 mg tablet 2 mg PO Q6H PRN Muscle Spasm 05/02/25 05/02/25 Unknown History Physical Exam Vital Signs and Narrative: Vital Signs: Last Vital Signs Temp 98.1 F 05/02/25 11:18 Pulse 94 05/02/25 14:25 Resp 16 05/02/25 14:25 BP 122/80 05/02/25 14:25 Pulse Ox 94 05/02/25 14:25 O2 Del Method Nasal Cannula 05/02/25 14:25 O2 Flow Rate 2 05/02/25 14:25 BMI result Body Mass Index 20.9 Const: General: cooperative, comfortable, alert and awake Nutritional Appearance: thin Orientation/consciousness: patient oriented x3 Resp: Other: mild tachypnea; prolonged expiratory phase, expiratory wheeze Effort & Inspection: normal respiratory effort and able to speak in complete sentences GI: Inspection: No distended Neuro: General: patient oriented x3, moves all extremities and CN's II-XI intact bilaterally Extrem: General: No pedal edema Results Labs 05/02/25 11:36 05/02/25 11:36 Labs: Laboratory Results - last 24 hr 05/02/25 05/02/25 05/02/25 11:33 11:36 11:50 MCV 91.8 MCH 31.0 MCHC 33.8 RDW 13.0 Plt Count 228 MPV 8.7 L Immature Gran % (Auto) 0.2 Neut % (Auto) 59.0 Lymph % (Auto) 20.5 [place] % (Auto) 9.6 Eos % (Auto) 9.1 H Baso % (Auto) 1.6 Lymph # (Auto) 1.0 L [place] # (Auto) 0.5 Eos # (Auto) 0.5 H Baso # (Auto) 0.1 Abs Immat Gran (auto) 0.01 Absolute Neuts (auto) 3.0 Absolute Nucleated RBC 0.000 Nucleated RBC % (auto) 0.0 VBG pH VBG pCO2 VBG pO2 VBG HCO3 VBG O2 Saturation VBG Base Excess Anion Gap 7 L Estim Creat Clear Calc 50.0 Estimated GFR > 60 Random Glucose 94 Lactic Acid 0.9 Calcium 9.8 D Magnesium 1.9 Total Bilirubin 0.7 AST 23 ALT 12 Alkaline Phosphatase 75 Troponin I High Sens < 2.7 NT-Pro-B Natriuret Pep 67.4 Total Protein 6.6 Albumin 4.2 Lipase 25 COVID-19 (SIMON) Negative COVID-19 Clin Com See Note Influenza Type A (NICKO) Negative Influenza Type B (NICKO) Negative Influenza A & B Note See Note 05/02/25 11:57 MCV MCH MCHC RDW Plt Count MPV Immature Gran % (Auto) Neut % (Auto) Lymph % (Auto) [place] % (Auto) Eos % (Auto) Baso % (Auto) Lymph # (Auto) [place] # (Auto) Eos # (Auto) Baso # (Auto) Abs Immat Gran (auto) Absolute Neuts (auto) Absolute Nucleated RBC Nucleated RBC % (auto) VBG pH 7.41 VBG pCO2 43 VBG pO2 51 VBG HCO3 28 H VBG O2 Saturation 82.0 VBG Base Excess 3.2 Anion Gap Estim Creat Clear Calc Estimated GFR Random Glucose Lactic Acid Calcium Magnesium Total Bilirubin AST ALT Alkaline Phosphatase Troponin I High Sens NT-Pro-B Natriuret Pep Total Protein Albumin Lipase COVID-19 (SIMON) COVID-19 Clin Com Influenza Type A (NICKO) Influenza Type B (NICKO) Influenza A & B Note Imaging Radiologist's Impressions: Impressions Chest X-Ray 05/02/25 12:11 IMPRESSION: COPD. No acute cardiopulmonary abnormality. Electronically signed by: Greg Coppola MD 05/02/2025 12:24 PM EDT RP Assessment and Plan (1) COPD (chronic obstructive pulmonary disease): Status: Acute Plan This is a 69-year-old female with history of COPD not on home O2 who presents with shortness of breath found to have hypoxia Acute respiratory failure with hypoxia Due to acute COPD exacerbation IV steroids (requesting low dose due to anxiety), breathing treatments due to increased sputum production, increase in cough and h/o bronchiectasis, will cover with IV levofloxacin Continue supplemental oxygen, wean as tolerated Tobacco dependence Smoking cessation advised Continue NRT Mood/Anxiety Continue clonazepam, buspirone Hypertension Continue amlodipine HLD Continue statin DVT prophylaxis-Lovenox Code status-DNR/DNI Patient will likely require 2 midnight stay in the hospital for management of acute decompensated COPD with hypoxia requiring supplemental oxygen and close monitoring of respiratory status Quality Stroke Does the patient have a stroke diagnosis?: No VTE Prior VTE?: No VTE Risk Level:: Medical - moderate - high VTE Device Contraindication: N/A - Device Ordered VTE Drug Contraindication: N/A - Med Ordered
--- NOTE | 2025-05-02 16:10 | PHA.MEDREC ---
Pharmacy Consult ? Medication Reconciliation Pharmacy has completed the medication reconciliation.Med rec complete, spoke to patient and compared with pharmacy claim history. Patient did state she thought she was only taking buspirone daily, but it is prescribed twice a day.
[2025-05-02] MEDS: 0.9 % Sodium Chloride Flush 3 ML SYRINGE IVFLUSH ×2 (16:23→20:25)
[2025-05-02] MEDS: Albuterol/Iprat 2.5/0.5MG 3 ML AMPUL.NEB INHALE (19:43)
[2025-05-03] VITALS (8 sets, daily range): BP systolic 114–140; BP diastolic 60–79; PULSE 68–94; RESP 16–18; TEMP 36–36.7; O2SAT 94–99
[2025-05-03] MEDS: Albuterol/Iprat 2.5/0.5MG 3 ML AMPUL.NEB INHALE ×4 (07:56→20:40)
[2025-05-03] MEDS: 0.9 % Sodium Chloride Flush 3 ML SYRINGE IVFLUSH ×3 (08:21→20:41)
[2025-05-03] MEDS: Nicotine 21 MG PATCH.TD24 TRANSDERMA (10:03)
--- NOTE | 2025-05-03 13:12 | P.PNIM_ITS ---
Subjective Subjective Date of Service: 05/03/25 Interval History: Very pleasant female, evaluated today. She reports that she feels her respirations are very close to baseline, but not yet there. She reports persistent tightness in her chest and difficulty breathing. No cough or phlegm production. No fevers rigors or chills Review of Systems Review of Systems: Yes all other systems are reviewed and are negative Physical Exam 2 Exam: Exam: General: A&O x3, oriented to time place person and situation, comfortable, no pain Cardiac: S1, S2 auscultated with no S3/4, no MRG. Well perfused. Respiratory: Normal breath sounds auscultated throughout all lung zones, without wheezing, rales. Normal rate. GI/ : No abdominal pain on palpation, no masses or distentions. MSK: Normal ambulation without pain at bony prominences or musculature Neurological: Normal neurological examination on overview, without obvious CN II-XII abnormalities. Vital Signs: Vital Signs: Last Vital Signs Temp 96.8 F 05/03/25 07:54 Pulse 82 05/03/25 11:34 Resp 16 05/03/25 11:34 BP 140/79 H 05/03/25 07:54 Pulse Ox 94 05/03/25 07:54 O2 Del Method Nasal Cannula 05/03/25 07:54 O2 Flow Rate 2 05/03/25 07:54 BMI result Body Mass Index 20.9 Objective Data Active Medications Acetaminophen (Acetaminophen 325 Mg Tablet) 650 mg PO Q6H PRN PRN Reason: Pain, Mild 1-3,fever,headache Albuterol Sulfate (Albuterol Sulfate (0.083%) 2.5 Mg/3 Ml Vial.Neb) 2.5 mg INHALE Q6H PRN PRN Reason: Shortness of Breath/Wheezing Albuterol/Ipratropium (Albuterol/Iprat 2.5/0.5mg 3 Ml Ampul.Neb) 3 ml INHALE RQ4H WHILE AWAKE [facility] Last Admin: 05/03/25 11:31 Dose: 3 ml Documented By: KATLYN Amlodipine Besylate (Amlodipine Besylate 5 Mg Tablet) 5 mg PO DAILY [facility]; Protocol Last Admin: 05/03/25 08:20 Dose: 5 mg Documented By: NINA Atorvastatin Calcium (Atorvastatin Calcium 10 Mg Tablet) 10 mg PO BEDTIME [facility] Last Admin: 05/02/25 20:24 Dose: 10 mg Documented By: ARTEM Buspirone HCl (Buspirone Hcl 5 Mg Tablet) 5 mg PO BID [facility] Last Admin: 05/03/25 08:20 Dose: 5 mg Documented By: NINA Calcium Carbonate (Calcium Carbonate 750 Mg Tab.Chew) 750 mg PO Q4H PRN PRN Reason: Heartburn Clonazepam (Clonazepam 0.5 Mg Tablet) 0.25 mg PO DAILY PRN PRN Reason: Anxiety Last Admin: 05/03/25 08:26 Dose: 0.25 mg Documented By: NINA Doxycycline Monohydrate (Doxycycline Monohydrate 100 Mg Capsule) 100 mg PO Q12H [facility] Last Admin: 05/03/25 09:57 Dose: 100 mg Documented By: NINA Enoxaparin Sodium (Enoxaparin Sodium 40 Mg/0.4 Ml Syringe) 40 mg SUBCUT Q24H [facility] Last Admin: 05/02/25 16:23 Dose: 40 mg Documented By: ISAIAS Magnesium Hydroxide (Milk Of Magnesia 30 Ml Oral.Susp) 30 ml PO DAILY PRN PRN Reason: Constipation Melatonin (Melatonin 3 Mg Tablet) 6 mg PO BEDTIME PRN PRN Reason: Insomnia Nicotine (Nicotine 21 Mg Patch.Td24) 21 mg TRANSDERMA DAILY PRN PRN Reason: Smoking Cessation Last Admin: 05/03/25 10:03 Dose: 21 mg Documented By: NINA Prednisone (Prednisone 20 Mg Tablet) 40 mg PO DAILY [facility] Last Admin: 05/03/25 09:57 Dose: 40 mg Documented By: NINA Sodium Chloride (0.9 % Sodium Chloride Flush 3 Ml Syringe) 3 ml IVFLUSH QSHIFT [facility] Last Admin: 05/03/25 08:21 Dose: 3 ml Documented By: NINA Tizanidine HCl (Tizanidine Hcl 4 Mg Tablet) 2 mg PO Q6H PRN PRN Reason: Muscle Spasm Vitamin D (Cholecalciferol (Vitamin D3) 25 Mcg Tablet) 25 mcg PO DAILY [facility] Last Admin: 05/03/25 08:20 Dose: 25 mcg Documented By: NINA Labs 05/02/25 11:36 05/02/25 11:36 Assessment and Plan (1) Hypertension: Status: Acute (2) Asthma: Status: Acute (3) COPD (chronic obstructive pulmonary disease): Status: Acute (4) Multiple pulmonary nodules: Status: Acute (5) Acute exacerbation of chronic obstructive pulmonary disease: Status: Acute (6) Bronchiectasis: Status: Acute Plan 69-year-old female with history of COPD not on home O2 who presents with shortness of breath found to have hypoxia Acute respiratory failure with hypoxia Due to acute non infective COPD exacerbation Superimposed bronchiectasis IV steroids (requesting low dose due to anxiety), breathing treatments due to increased sputum production, increase in cough and h/o bronchiectasis Continue supplemental oxygen, wean as tolerated PLAN - doxycycline 100 mg b.i.d. p.o. - prednisone 40 mg OD p.o. - continue DuoNebs p.r.n. Tobacco dependence Smoking cessation advised Continue NRT Continue BuSpar Mood/Anxiety Continue clonazepam, buspirone Hypertension Continue amlodipine HLD Continue statin - [employer] - VTE: Enoxaparin - CODE STATUS: DNR/DNI - DIET: Regular Total time managing care of this patient today: 35 minutes. Quality Stroke Does the patient have a stroke diagnosis?: No VTE Prior VTE?: No VTE Risk Level:: Medical - moderate - high VTE Device Contraindication: N/A - Device Ordered VTE Drug Contraindication: N/A - Med Ordered
[2025-05-04 03:40] VITALS: BP 125/60; PULSE 69; RESP 18; TEMP 36; O2SAT 95
[2025-05-04 08:00] VITALS: BP 158/90; PULSE 73; RESP 18; TEMP 36.8; O2SAT 94
[2025-05-04] MEDS: Nicotine 21 MG PATCH.TD24 TRANSDERMA (08:30)
[2025-05-04] MEDS: 0.9 % Sodium Chloride Flush 3 ML SYRINGE IVFLUSH (08:32)
--- NOTE | 2025-05-04 08:40 | MHC.CM.PN ---
PT REPORTS SHE LIVES ALONE AND HAS DAILY CHARGE MASTER ANALYST SERVICES CHARGE MASTER ANALYST ASSISTS WITH HOUSEWORK, LAUNDRY, MEALS, SHOPPING AND SHOWERS SHE HAS A SHOWER CHAIR FOR DME HCP ON FILE PCP: ERIN MANN DELIVERED ON 05/03/25 DCP: HOME, RESUME CHARGE MASTER ANALYST SERVICES CHARGE MASTER ANALYST TO TRANSPORT
[2025-05-04 11:39] LABS: COVID-19 Test Negative (Negative); IDNOW Serial# 55D5AD1C
--- NOTE | 2025-05-04 14:04 | P.DS_ITS ---
DS: Providers Provider Date of Service: 05/04/25 Date of admission: 05/02/25 15:11 Date of discharge: 05/04/25 Primary care physician: MADISON Miguel DS: Diagnosis Discharge Diagnosis (1) Hypertension: Status: Acute (2) Asthma: Status: Acute (3) COPD (chronic obstructive pulmonary disease): Status: Acute (4) Multiple pulmonary nodules: Status: Acute (5) Acute exacerbation of chronic obstructive pulmonary disease: Status: Acute (6) Bronchiectasis: Status: Acute DS: Summary Hospital Course Hospital Course: From admission HPI: Date of Service: 05/02/25 Attending physician on admission: Kristy Ferraro Chief Complaint: sob This is a 69-year-old female with a history of COPD who presents to the emergency department with shortness of breath. Patient reports shortness of breath on and on for the past few weeks. She reports a cough productive of light yellow phlegm. Her cough is increased in frequency and her phlegm is thicker than normal. She continues to smoke approximately 2 cigarettes daily. She denies any recent sick contacts, she denies any fever. In the emergency department chest x-ray was negative for pneumonia. She does not use oxygen at home and her oxygen saturation dropped as low as 84% on room air, she was initially tachycardic and tachypneic on arrival. She received multiple breathing treatments, IV steroids and empiric IV antibiotics. He continued to have persistent wheezing and dyspnea and she will be admitted for further management. Hospital course: Pt was admitted to the hospital for acute hypoxic respiratory failure in the setting of noninfectious COPD exacerbation. Tested negative for flu, COVID, RSV; CXR negative for acute cardiopulmonary abnormality. Pt was treated with IV steroids, bronchodilator therapy, and started on doxycycline for pleiotropic effects. Pt responded well to therapy and was weaned off of supplemental oxygen and is currently back to baseline with breathing. Pt will be discharged home on short course of prednisone 40 mg x 3 days, doxycycline 100 mg b.i.d. x3 days, and nicotine patches. Pt is strongly encouraged to quit smoking. Pt should resume all other home medications. Time Attestation Discharge Coordination Time (in mins): 36 Quality: Safe Use of Opioids Does Pt have an Active Cancer Diagnosis on the Problem List?: No Quality: Stroke Does the patient have a stroke diagnosis?: No Physical Exam Exam: Exam: General: AOx3, no acute distress Resp: CTA bilaterally CVS: S1, S2, RRR GI: +BS, NT, no distention Skin: Warm, dry Neuro: Cranial nerves II-XII grossly intact bilaterally. Motor grossly intact bilaterally Extremities: No edema Psych: Mildly anxious Vital Signs: Vital Signs: Last Vital Signs Temp 98.3 F 05/04/25 08:00 Pulse 73 05/04/25 08:00 Resp 18 05/04/25 08:00 BP 158/90 H 05/04/25 08:00 Pulse Ox 94 05/04/25 08:00 O2 Del Method Room Air 05/04/25 08:00 O2 Flow Rate 2 05/03/25 07:54 BMI result Body Mass Index 20.9 DS: Data Data Completed and Pending Labs on day of discharge: Laboratory Results - last 24 hr 05/04/25 10:51 COVID-19 (SIMON) Negative COVID-19 Clin Com See Note Preliminary micro results at discharge 05/02/25 11:52 Blood Culture - Preliminary Blood - Venous No growth after 48 hours. 05/02/25 11:50 Blood Culture - Preliminary Blood - Venous No growth after 48 hours. Discharge Plan Discharge Anticipated Discharge Date/Time: 05/04/25 13:52 Patient Disposition: Home, Self-Care Discharge Diagnosis: Acute hypoxic respiratory failure in the setting of COPD exacerbation Referrals: Gerson Wheeler FNP- [Primary Care Provider, Internal Medicine] - 1 Week Discharge Medications: New doxycycline monohydrate 100 mg capsule 100 mg PO DAILY Qty: 7 0RF Rx Instructions: Take one capsule twice a day for the next 3 days, starting the evening of 05/04 and ending the evening of 05/07. prednisone 20 mg tablet 40 mg PO DAILY Qty: 6 0RF Rx Instructions: Take two tablets daily for the next three days, from 05/05-05/07 nicotine 21 mg/24 hr patch 24 hour 1 patch transdermal DAILY Qty: 28 0RF Rx Instructions: Apply one patch daily Continued buspirone 5 mg Tablet 5 mg PO BID clonazepam 0.5 mg Tablet 0.25 mg PO DAILY PRN (Reason: Anxiety) tizanidine 2 mg Tablet 2 mg PO Q6H PRN (Reason: Muscle Spasm) celecoxib 200 mg Capsule 200 mg PO DAILY PRN (Reason: Pain (Scale Score 4-6)) cholecalciferol (vitamin D3) [Vitamin D3] 25 mcg (1,000 unit) capsule 25 mcg PO DAILY cetirizine 10 mg tablet 10 mg PO DAILY PRN (Reason: ALLERGIES) nicotine 21 mg/24 hr patch 24 hour 21 mg transdermal DAILY PRN (Reason: Smoking Cessation) simvastatin 10 mg tablet 10 mg PO BEDTIME amlodipine 5 mg tablet 5 mg PO DAILY albuterol sulfate 90 mcg/actuation HFA aerosol inhaler 2 puff PO Q4H PRN (Reason: Shortness Of Breath Or Wheezing) Trelegy Ellipta 200-62.5-25 mcg blister with device 1 inh inhalation DAILY Qty: 60 6RF ipratropium-albuterol 0.5 mg-3 mg(2.5 mg base)/3 mL solution for nebulization 3 ml inhalation Q6H PRN (Reason: wheezing) Qty: 180 6RF Discharge Orders: Discharge Order (Routine); Ordered 05/04/25 Ordered By: Kory Huerta Activity on Discharge: As tolerated Stand Alone Forms: Patient Portal Discharge page Print Language: Vincentian Care Plan Goals: See below Health Concerns: Acute hypoxic respiratory failure COPD exacerbation Bronchitis Plan of Treatment: Admitted to the hospital for acute hypoxic respiratory failure in the setting of non infectious COPD exacerbation. You were treated with supplemental oxygen, IV steroids, bronchodilator therapy, and with empiric doxycycline. You were eventually weaned off of supplemental oxygen and breathing returned to baseline. We will be discharged to home on a short course of oral steroids and empiric doxycycline. -- take doxycycline 100 mg twice a day with food for the next 3 days, starting on the evening of 05/04 and ending on the evening of 05/07 -- take prednisone 40 mg (2 tablets) daily for the next 3 days, from 05/05-05/07 -- your strongly encouraged to abstain from smoking -- you will be discharged on nicotine patch 21 mg daily -- resume all of your other home medications Assessment: See discharge summary
== END 2025-05-04 15:06 | disposition home or self-care (01) | DRG 190 ==
LOC: HO.ED 14:25 → HO.EDOVER 15:14 → HO.S3 16:26
PROVIDERS: Physician Assistant; Admitting Provider Physician Assistant Medical; Emergency Provider Emergency Medicine; PCP Nurse Practitioner Family; Visit Provider Student in an Organized Health Care Education/Training Program
DX: J47.1 Bronchiectasis with (acute) exacerbation (principal); J96.01 Acute respiratory failure with hypoxia; F17.210 Nicotine dependence, cigarettes, uncomplicated; Z71.6 Tobacco abuse counseling; I10 Essential (primary) hypertension; E78.5 Hyperlipidemia, unspecified; Z66 Do not resuscitate; F41.9 Anxiety disorder, unspecified; Z20.822 Contact with and (suspected) exposure to COVID-19; Z79.51 Long term (current) use of inhaled steroids; Z79.899 Other long term (current) drug therapy
CPT/HCPCS: 36415; 71046; 80053; 82803; 83605; 83690; 83735; 83880; 84484; 85025; 87040; 87502; 87635; 93005; 94640; 99285; J0696; J1650; J2919; J3475

== ENCOUNTER → 2025-05-02 11:19 | Outpatient (BNV) | payer OTHER, SELFPAY | PROVIDERS: Admitting Provider Physician Assistant Medical; Emergency Provider Emergency Medicine; PCP Nurse Practitioner Family; Visit Provider Internal Medicine | DX: R94.31 Abnormal electrocardiogram [ECG] [EKG] (principal); R06.00 Dyspnea, unspecified | CPT/HCPCS: 93010 ==

== ENCOUNTER → 2025-05-02 11:19 | Outpatient (BNV) | payer OTHER, SELFPAY | PROVIDERS: Emergency Provider Emergency Medicine; PCP Nurse Practitioner Family; Visit Provider Radiology Diagnostic Radiology | DX: J44.9 Chronic obstructive pulmonary disease, unspecified (principal) | CPT/HCPCS: 71046 ==

== ENCOUNTER → 2025-05-02 15:11 | Outpatient (BNV) | payer OTHER, SELFPAY | PROVIDERS: Admitting Provider Physician Assistant Medical; Emergency Provider Emergency Medicine; PCP Nurse Practitioner Family; Visit Provider Physician Assistant Medical | DX: J44.1 Chronic obstructive pulmonary disease with (acute) exacerbation (principal); I10 Essential (primary) hypertension; J45.909 Unspecified asthma, uncomplicated; R91.8 Other nonspecific abnormal finding of lung field; J47.9 Bronchiectasis, uncomplicated | CPT/HCPCS: 99223; 99232 ==

== ENCOUNTER 2025-05-14 15:50 | Outpatient (REF) | payer OTHER, SELFPAY ==
--- NOTE | ~2025-05-14 | CT_ITS ---
EXAMINATION: CT CHEST WITHOUT CONTRAST CLINICAL INFORMATION: R91.1 - Solitary pulmonary nodule COMPARISON: CT chest March 03, 2025 and July 17, 2024 TECHNIQUE: Multidetector volumetric CT imaging of the chest was done. Axial MIP volume rendering provided. Sagittal and coronal reformatted images were obtained. This CT examination was performed using dose optimization techniques as appropriate, variously including the following: *Automated exposure control *Adjustment of mA and/or kV according to patient size (this includes techniques or standardized protocols for targeted exams where dose is matched to indication/reason for exam; i.e. extremities or head) *Use of iterative reconstruction technique FINDINGS: LUNGS: Nodular density that was previously seen in the lateral segment right middle lobe near the diaphragm has resolved. 1-2 mm nodule in the anterior inferior aspect of the right upper lobe (axial CT #4 image 80/171) is stable since February 2024 and requires no further workup. There are no new nodules. MEDIASTINUM: The mediastinum is normal. CORONARY ARTERY CALCIFICATION: None visualized on this study. PLEURA: There is no pleural effusion. No pleural mass or thickening. AXILLA: No lymphadenopathy. UPPER ABDOMEN: Multiple simple hepatic cysts are again identified. OSSEOUS STRUCTURES: Severe degenerative disc disease is visible in the upper lumbar spine. There is also moderate dextroscoliosis. CT/CT chest wo IV con IMPRESSION: Resolved right middle lobe nodular density. Greater than one year stability of a right upper lobe 1-2 mm nodule requires no further follow-up. Multiple simple hepatic cysts. Severe degenerative disc disease and moderate dextroscoliosis is noted in the lumbar spine. Fleischner guidelines were followed. Electronically signed by: Jarred Neumann MD 05/14/2025 05:26 PM EDT
--- OUTSIDE RECORDS SUMMARY | 2025-05-14 16:29 | XMS_ITS | Encounter Summary ---
Author Organization [employer] Address [address] [place] [address] [address] [place] [address] Care Team Providers Care Secretary Office Clerk Name Role Phone Anne Caballero MD Primary Care Provider [phone] Jose Huston CNP Primary Care Provider [phone] Encounter Details Date Type Department Care Team (Latest Contact Info) Description 04/22/2021 Abstract [facility] CONVERSIONS Dental, Provider, DDS Social History Tobacco [...] [facility] ADULT DENTAL [address] [place] [address] Eddie Rodriguez documented as of this encounter Visit Diagnoses Not on filedocumented in this encounter Care Teams Secretary Office Clerk Relationship Specialty Start Date End Date Anne Caballero MD [address] [place] [address] PCP - General Family Medicine 07/30/12 04/30/25 Jose Huston CNP [address] [place] [address] PCP - General Family Medicine 05/01/25 documented as of this encounter
--- OUTSIDE RECORDS SUMMARY | 2025-05-14 16:29 | XMS_ITS | Clinical Summary ---
Author Organization [employer] Address [address] [place] [address] 7[address] [place] [address] Care Team Providers Care Cuff Matcher Name Role Phone Jose Huston CNP Primary Care Provider [phone] Allergies No known active allergies Medications Fluticasone [...] obstructive pulmonary disease, unspecified COPD type (CMS/HCC) (HCC) Inhale 200 mcg Once per day. 60 each 3 12/08/19 24 Active simvastatin (Zocor) 10 MG tablet TAKE ONE TABLET BY MOUTH AT BEDTIME 90 tablet 1 12/14/19 24 Active albuterol 1.25 MG/3ML nebulizer solutionIndica tions:Chronic obstructive pulmonary disease, unspecified COPD type (CMS/HCC) (HCC) Take 3 mL (1.25 mg) by nebulization [...] obstructive pulmonary disease, unspecified COPD type (CMS/HCC) ([facility]) INHALE TWO PUFFS BY MOUTH EVERY 4 [...] anxiety. 15 tablet 05/01/20 25 2024 Active celecoxib (CeleBREX) 200 MG capsule Take 1 capsule (200 mg) by mouth Once per day. 30 capsule 3 05/06/20 25 Active clonazePAM (KlonoPIN) 0.5 MG tabletIndicati [...] Hyperlipidemia 02/13/2012 Hyperthyroidism 02/13/2012 Chronic hepatitis C ([facility]/HCC) 02/13/2012 Encounters Date Type Department Care Team Description 05/06/2025 Refill [facility] [address] [place] [address] Jose Huston CNP 05/01/2025 11:30 AM EDT Telemedicine [facility] [address] [place] [address] Anne Caballero MD Anxiety 05/01/2025 Travel 05/01/2025 Telephone [facility] [address] [place] [address] Anne Caballero MD Transition Of Care (Tcm) 04/30/2025 Telephone [facility] [address] [place] [address] Anne Caballero MD Chart Prep 04/15/2025 10:00 AM EDT Office Visit [facility] ADULT DENTAL [address] [place] [address] Eddie Rodriguez Dental calculus (Primary Dx) 04/10/2025 2:00 PM EDT Office Visit [facility] [address] [place] [address] Killian Rodriguez MD Anxiety (Primary Dx); Grief reaction 04/10/2025 Travel 04/09/2025 Telephone [facility] MEDICINE [address] [place] [address] Anne Caballero MD Nurse Triage 04/09/2025 Refill [facility] MEDICINE [address] [place] [address] Anne Caballero MD Chronic obstructive pulmonary disease, unspecified COPD type ([facility]/HCC) 03/24/2025 Refill [facility] MEDICINE [address] [place] [address] Anne Caballero MD 03/11/2025 Refill [facility] WALK-IN CENTER [address] [place] [address] Anne Caballero MD 03/06/2025 9:00 AM EDT Office Visit [facility] CHC MED & PEDS [address] [place] [address] Anne Caballero MD Benign hypertension (Primary Dx); Chronic obstructive pulmonary disease, unspecified COPD type (CMS/HCC); Hyperthyroidism; Encounter for annual wellness visit 03/06/2025 Travel 03/05/2025 Refill [facility] MEDICINE [address] [place] [address] Anne Caballero MD 03/03/[address] Orders [address] [facility] External Provider, [facility] 02/26/2025 Patient Outreach [facility] MEDICINE [address] [place] [address] Anne Caballero MD Pre-visit Planning (SDOH screening [...] cm (5' 4.5 ) 04/10/2025 2:17 PM ED T Body Mass Index 20.79 04/10/2025 2:17 PM EDT Plan of Treatment Upcoming Encounters Date Type Department Care Team (Late st Contact Info) Description 10/17/2025 10:15 AM EST Office Visit [facility] ADULT DENTAL [address] [place] [address] Eddie Rodriguez Health Maintenance Due Date Last [...] 022, 12/20/2021, 03/09/2016 COVID-19 Vaccine (3 - 2024- season) 2025 11/10/2020, 10/08/2020 Influenza Vaccine (#1) 2025 , 06/17/2020, 07/06/2018, Additional history exists FOBT 06/12/2025 06/12/2024 Dental Oral Exam 10/14/2025 04/15/2025 Dental Prophylaxis 10/14/2025 04/15/2025, 0 10/07/2024, 04/04/2024, Additional history exists SDOH Screening 02/26/2026 02/26/2025 Lung Cancer Screening 03/05/2026 03/05/2025 Depression Screening 03/06/2026 03/06/2025, 03/06/20 Tobacco Screening 04/15/2026 04/15/2025 Dental X-Ray: Bitewings 04/16/2026 04/15/2025, 04/04 Mammogram 06/27/2026 06/27/2024, 06/0 08/2022, 01/12/2023, Additional [...] T4 (04/11/2025 10:40 AM EDT) Pathologist [facility] TSH reflex Free T4 3.73 0.32 - 4.0 uIU/mL [facility] Blood Venous blood specimen / Unknown 04/11/2025 10:40 AM EDT 04/11/2025 11:52 AM EDT us Anne Caballero MD LAB BLOOD ORDERABLES Final Resul t [facility] [address] [place] [address] [phone] * (ABNORMAL) Hepatic Function Panel (04/11/2025 10:40 AM EDT) Bilirubin, Total 0.6 0.0 - 1.0 mg/dL [facility] Bilirubin, Direct 0.2 0.0 - 0.5 mg/dL [facility] Aspartate Amino Transferase 20 5 - 31 U/L [facility] Alanine Aminotransferase 9 0 - 31 U/L [facility] Total Protein 6.3(L) 6.5 - 8.0 g/dL [facility] Albumin Level 3.8 3.5 - 5.0 g/dL [facility] Alkaline Phosphatase 60 39 - 117 U/L [facility] Blood Venous blood specimen / Unknown 04/11/2025 10:40 AM EDT 04/11/2025 11:52 AM EDT Anne Caballero MD LAB BLOOD ORDERABLES Final Resul t Performing Organization Address [facility] de Phone Number [facility] [address] [place] [phone] * (ABNORMAL) Lipid Panel, Standard (04/11/2025 10:40 AM EDT) Triglycerides 104 <150 mg/dL [facility] Comment:Desirable Triglyceri de: less than 150 mg/dLBorderline High Triglyceride 150-199 mg/dLHigh Triglyceride: 200-499 mg/dLVery High Triglyceride: greater than or equal to 5OO mg/dL Cholesterol 253(H) <200 mg/dL [facility] Comment:Desirable Cholestero l: less than 200 mg/dLBorderline High Cholesterol: 200-239 mg/dLHigh Cholesterol: greater than 239 mg/dL LDL Cholesterol Calculated 160(H) <100 mg/dL [facility] Comment:Desirable LDL: less than 100 mg/dLNear Optimal/Above Optimal LDL: 110- 129 mg/dLBorderline High LDL: 130-159 mg/dLHigh LDL: 160-189 mg/dLVery High LDL: greater than or equal to 190 mg/dL HDL Cholesterol 73 >40 mg/dL [facility] Comment:Desirable HDL: great er than 40 mg/dL Note: This HDL assay may give artificially low results in patients with liver disease. Blood Venous blood specimen / Unknown 04/11/2025 10:40 AM EDT 04/11/2025 11:52 AM EDT Anne Caballero MD LAB BLOOD ORDERABLES Final Resul t Performing Organization Address [facility] Co de Phone Number [facility] [address] [place] [phone] * (ABNORMAL) Basic Metabolic Panel (04/11/2025 10:40 AM EDT) Sodium 142 135 - 145 mmol/L [facility] Potassium 3.8 3.3 - 5.1 mmol/L [facility] Chloride 105 96 - 108 mmol/L [facility] Carbon Dioxide 30(H) 22 - 29 mmol/L [facility] Anion Gap 11(L) 12 - [address] [facility] Urea Nitrogen (BUN) 18(H) 9 - 16 mg/dL [facility] Creatinine, Serum 0.98 0.5 - 1.4 mg/dL [facility] Estimated Glomerular Filt Rate [address] [facility] Comment:Chronic Kidney Disea se: Estimated GFR < 60 mL/min/1.70d7Emgija Kidney Disease: Estimated GFR < 15 mL/min/1.73m2 Glucose 67 60 - 115 mg/dL [facility] Calcium 9.2 8.4 - 10.2 mg/dL [facility] Blood Venous blood specimen / Unknown 04/11/2025 10:40 AM EDT 04/11/2025 11:52 AM EDT us Anne Caballero MD LAB BLOOD ORDERABLES Final Resul t [facility] [address] [place] [address] [phone] * CT Chest w/o Contrast (03/04/2025 11:11 AM EDT) Anatomical Region Laterality Modality Body, Chest Computed Tomogra phy 03/04/2025 11:1 1 AM EDT Narrative 03/04/2025 11:12 AM EDT [address] [address] [address] Scan Report Signed Patient: Juana Lopez MR#: [id number] 34 : 1955 Acct:[id number] Age/Sex: 69 / F ADM Date: 03/03/25 Loc: HO.CT Attending Dr: Alka Robles SILVER RECOVERY OPERATOR Ordering Physician: Alka Robles NP Date of Service: 03/03/25 Procedure(s): CT chest wo IV con Accession Number(s): [id number] cc: Anne Caballero MD; Alka oRbles NP Report Number: [id number]: Total DLP = 149.00 mGy-cm CLINICAL HISTORY: [...] 03/04/25 1112 DD/ 1111 TD/TT: 03/04/25 1111 Java Sybase Developer: Procedure Note Donotuseinterpreter, Image - 03/04/[address] [place] [address] [address] Scan Report Signed Patient: Fabian Lopez#: [id number] [birth year] : 4Acct:[id number] Age/Sex: 69 / FADM Date: 03/03/25 Loc: HO.CT Attending Dr: Alka Robles SILVER RECOVERY OPERATOR Ordering Physician: Alka Robles NP Date of Service: 03/03/25 Procedure(s): CT chest wo IV con Accession Number(s): [id number] cc: Anne Caballero MD; Alka Robles NP Report Number: [id number]: Total DLP = 149.00 mGy-cm CLINICAL HISTORY: [...] 03/04/25 1112 DD/ 1111 TD/TT: 03/04/25 1111 Java Sybase Developer: [facility] External Provider IMG CT PROCEDURES Final Result * BI Mammogram Screening Tomosynthesis Bilateral (06/27/2024 3:41 PM EST) Anatomical Region Laterality Modality Breast Bilateral Mammography 06/27/2024 3:41 PM EST Narrative 07/05/2024 12:50 PM EST [facility] [address] [place] [address] Mammography Report Signed Patient: Junaa Lopez MR#: [id number] [birth year] : 1955 Acct:[id number] Age/Sex: 68 / F ADM Date: 06/27/24 Loc: MAMMO Attending Dr: Anne Caballero MD Ordering Physician: Anne Caballero MD Results: 1Negati ve Date of Service: 06/27/24 Follow Up: 1 Year From Orig ina Mammogram Procedure(s): MM tomosynthesis screening BI Accession Number(s): [id number] cc: Anne Caballero MD EXAMINATION: MM SCREENING [...] by: Celestina Tan DO 07/05/2024 12:47 PM [facility] Dictated By: Celestina Tan DO Signed By: <Electronically signed by Celestina Tan DO in OV> 07/05/24 1247 DD/ 1541 TD/TT: 06/27/24 1554 Java Sybase Developer: Procedure Note Donotuseinterpreter, Image - 07/05/2024 [facility] [address] [place] [address] Mammography Report Signed Patient: Fabian Lopez#: [id number] 34 : 1955cct:[id number] Age/Sex: 68 / FADM Date: 06/27/24 Loc: MAMMO Attending Dr: Anne Caballero MD Ordering Physician: Anne Caballero MDResults: 1Negati ve Date of Service: 06/27/24Follow Up: 1 Year From Orig ina Mammogram Procedure(s): MM tomosynthesis screening BI Accession Number(s): [id number] cc: Anne Caballero MD EXAMINATION: MM SCREENING [...] 07/05/24 1247 DD/ 1541 TD/TT: 06/27/24 1554 Java Sybase Developer: Anne Caballero MD [facility] BI PROCEDURES Final Result * Cologuard?? colon cancer screening (06/12/2024 12:30 PM EDT) Cologuard Result Negative Negative 06/20/20 10:31 AM EST [facility] (CLIA #:[id number]) Comment: NEGATIVE TEST RESULT. A negative Cologuard [...] (Hugo Woodson al, N Engl J Med 2014;370(14):0910-0639) The normal value (reference range) for this assay is negative. COLOGUARD RE-SCREENING RECOMMENDATION: Periodic colorectal cancer screening is an important part of preventive healthcare for asymptomatic individuals at average risk for colorectal cancer. Following a negative Cologuard result, the [place] [employer] and U.S. Multi-Society Task Force screening guidelines recommend a Cologuard re-screening interval of 3 years. References: [place] [employer] Guideline for Colorectal Cancer Screening: https://www.cancer.org/cancer/ycgve-xobsic-zcqcgl/nskfrcqbu-evtsprjre-uhwwwhb/ac s-rec ommendations.html.; Brandon DK, Mark YE, Cathleen GerardK, Colorectal Cancer Screening: Recommendations for Physicians and Patients from the U.S. Multi-Society Task Force on Colorectal Cancer Screening , Am J Gastroenterology 2017; 112:5756-1382. TEST DESCRIPTION: Composite algorithmic analysis of stool [...] screened with both Cologuard and colonoscopy. (Hugo Duran et al, N Engl J Med 2014;370(14):7053-3218.) Cologuard may produce a false negative or false positive result (no colorectal cancer or precancerous polyp present at colonoscopy follow up). A negative Cologuard test result does not guarantee the absence of CRC or advanced adenoma (pre-cancer). The current Cologuard screening interval is every 3 years. ([place] [employer] and U.S. Multi-Society Task Force). Cologuard performance data in a 10,000 patient pivotal study using colonoscopy as the reference method can be accessed at the following location: www.CloudCar.Picurio/results. Additional description of the Cologuard test process, warnings and precautions can be found at www.3LMoguard.Picurio. Stool specimen (specimen) 06/12/2024 12:30 PM EDT 06/14/2024 1:04 PM EDT us Anne Caballero MD LAB MOLECULAR DIAGNOSTICS ORDERA BLES Final Result [facility] (CLIA #:[id number]) [place] [address], from Last 3 Months or Most Recently Relevant to Health Maintenance Insurance [address] [place] [address] [facility] USP OPTIONS (HMO D-SNP) [place] [id number] [address] [facility] Care Teams Cuff Matcher Relationship Specialty Start Date End Date Jose Huston CNP [address] [place] [phone] PCP - General Family Medicine 05/01/25
--- OUTSIDE RECORDS SUMMARY | 2025-05-14 16:29 | XMS_ITS | Encounter Summary ---
Author Organization [employer] Address [address] [facility] 7t [place] [address] Care Team Providers Care Acute Care Certified Nursing Assistant Name Role Phone Anne Caballero MD Primary Care Provider [phone] Jose Huston CNP Primary Care Provider [phone] Reason for Visit * Reason Onset Date Comments FYI 01/02/2024 Encounter Details Date Type Department Care Team (Late st Contact Info) Description 01/02/2024 Telephone [facility] MEDICINE [address] [place] [address] Anne Caballero MD [address] [place], [place] [phone] FYI Social History Tobacco Use Types Packs/Day [...] - 01/02/2024 1:19 PM EDT Tc from [facility] calling to inform PCP pt will be discharge today 01/01 from PT documented in this encounter Plan of Treatment Upcoming Encounters Date Type Department Care Team (Late st Contact Info) Description 10/17/2025 10:15 AM EST Office Visit [facility] [address] [place] [address] Eddie Rodriguez documented as of this encounter Visit Diagnoses Not on filedocumented in this encounter Additional Health Concerns Assessment Noted Time PHQ-9 Depression Total Score: 4 10/21/19 23 9:37 AM EST documented as of this encounter Care Teams Acute Care Certified Nursing Assistant Relationship Specialty Start Date End Date Anne Caballero MD [address] [place] [phone] PCP - General Family Medicine 07/30/12 04/30/25 Jose Huston CNP [address] [place] [phone] PCP - General Family Medicine 05/01/25 documented as of this encounter
--- OUTSIDE RECORDS SUMMARY | 2025-05-14 16:29 | XMS_ITS | Encounter Summary ---
Author Organization [facility] Address [address] [place] [address] Phone Care Team Providers Care Power Builder Developer Name Role Phone Anne Caballero MD Primary Care Provider [phone] Encounter Details Date Type Department Care Team (Late st Contact Info) Description 03/29/2022 Documentation Only [facility] [address] [place] [phone] Priscila Collins MD Social History Tobacco [...] on filedocumented in this encounter Care Teams Power Builder Developer Relationship Specialty Start Date End Date Anne Caballero MD [address] [place] [phone] PCP - General Family Medicine 02/21/22 documented as of this encounter
--- OUTSIDE RECORDS SUMMARY | 2025-05-14 16:29 | XMS_ITS | Encounter Summary ---
Author Organization [employer] Address [address] [facility] 7t [place] [address] Care Team Providers Care Engagement Executive Name Role Phone Anne Caballero MD Primary Care Provider [phone] Jose Huston CNP Primary Care Provider [phone] Reason for Visit * Reason Comments Med Refill Encounter Details Date Type Department Care Team (Late st Contact Info) Description 03/24/2025 Refill [facility] [address] [place] [address] Anne Caballero MD [address] [place], [place] [phone] Social History Tobacco Use Types Packs/Day Years [...] 10:15 AM EST Office Visit [facility] ADULT DENTAL 505 [place] [address] Eddie Rodriguez documented as of this encounter Visit Diagnoses Not on filedocumented in this encounter Additional Health Concerns Assessment Noted Time PHQ-9 Depression Total Score: 0 03/06/20 25 9:20 AM EDT documented as of this encounter Care Teams Engagement Executive Relationship Specialty Start Date End Date Anne Caballero MD [address] [place] [address] PCP - General Family Medicine 07/30/12 04/30/25 Jose Huston CNP 505 [place] [address] PCP - General Family Medicine 05/01/25 documented as of this encounter
--- OUTSIDE RECORDS SUMMARY | 2025-05-14 16:29 | XMS_ITS | Encounter Summary ---
Author Organization [employer] Address [address] [place] [address] 7t [place] [address] Care Team Providers Care Drying Room Attendant Name Role Phone Anne Caballero MD Primary Care Provider [phone] Jose Huston CNP Primary Care Provider [phone] Encounter Details Date Type Department Care Team (Latest Contact Info) Description 11/13/2018 Abstract [facility] CONVERSIONS Dental, Provider, DDS Social History [...] Description 10/17/2025 10:15 AM EST Office Visit [facility] ADULT DENTAL 505 [place] [address] Eddie Rodriguez documented as of this encounter Visit Diagnoses Not on filedocumented in this encounter Care Teams Drying Room Attendant Relationship Specialty Start Date End Date Anne Caballero MD 230 [place] [address] PCP - General Family Medicine 07/30/12 04/30/25 Jose Huston CNP 505 [place] [address] PCP - General Family Medicine 05/01/25 documented as of this encounter
--- OUTSIDE RECORDS SUMMARY | 2025-05-14 16:29 | XMS_ITS | Clinical Summary ---
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
--- OUTSIDE RECORDS SUMMARY | 2025-05-14 16:29 | XMS_ITS | Encounter Summary ---
Author Organization [employer] Address [address] [facility] 7t [place] [address] Care Team Providers Care President College [employer] Name Role Phone Anne Caballero MD Primary Care Provider [phone] Jose Huston CNP Primary Care Provider [phone] Reason for Visit * Reason Onset Date Comments FYI 12/11/2023 Encounter Details Date Type Department Care Team (Late st Contact Info) Description 12/11/2023 Telephone [facility] MEDICINE 230 [place] [address] Anne Caballero MD [address] [place], [place] [phone] FYI Social History Tobacco Use Types Packs/Day [...] Cortes - 12/11/2023 3:26 PM EDT Tc constantino Pizano at [facility] calling to inform the Provider the patient was discharged from [facility] on 11/28 documented in this encounter Plan of Treatment Upcoming Encounters Date Type Department Care Team (Late st Contact Info) Description 10/17/2025 10:15 AM EST Office Visit [facility] ADULT DENTAL [address] [place] [address] Eddie Rodriguez documented as of this encounter Visit Diagnoses Not on filedocumented in this encounter Additional Health Concerns Assessment Noted Time PHQ-9 Depression Total Score: 4 10/21/19 23 9:37 AM EST documented as of this encounter Care Teams President College [employer] Relationship Specialty Start Date End Date Anne Caballero MD [address] [place] [address] PCP - General Family Medicine 07/30/12 04/30/25 Jose Huston CNP [address] [place] [address] PCP - General Family Medicine 05/01/25 documented as of this encounter
--- OUTSIDE RECORDS SUMMARY | 2025-05-14 16:29 | XMS_ITS | Encounter Summary ---
Author Organization [employer] Address [address] [place] [address] 7t [place] [address] Care Team Providers Care Osteology Teacher Name Role Phone Anne Caballero MD Primary Care Provider [phone] Jose Huston CNP Primary Care Provider [phone] Encounter Details Date Type Department Care Team (Latest Contact Info) Description 06/07/2022 Abstract [facility] CONVERSIONS Dental, Provider, DDS Social History Tobacco [...] Description 10/17/2025 10:15 AM EST Office Visit [facility] CHC ADULT DENTAL 505 [place] [address] Eddie Rodriguez documented as of this encounter Visit Diagnoses Not on filedocumented in this encounter Care Teams Osteology Teacher Relationship Specialty Start Date End Date Anne Caballero MD 230 [place] [address] PCP - General Family Medicine 07/30/12 04/30/25 Jose Huston CNP 505 [place] [address] PCP - General Family Medicine 05/01/25 documented as of this encounter
--- OUTSIDE RECORDS SUMMARY | 2025-05-14 16:29 | XMS_ITS | Encounter Summary ---
Author Organization [employer] Address [address] [facility] 7t [place] [address] Care Team Providers Care Airport Operations Duty Manager Name Role Phone Anne Caballero MD Primary Care Provider [phone] Jose Huston CNP Primary Care Provider [phone] Reason for Visit * Reason Onset Date Comments Med Refill 03/13/2024 Encounter Details Date Type Department Care Team (Late st Contact Info) Description 03/13/2024 Refill [facility] & [facility]EDS [address] [place], [place] [phone] Anne Caballero MD 505 [place], [place] [phone] Chronic obstructive pulmonary disease, unspecified COPD type [...] [facility] 505 [place] [address] Eddie Rodriguez documented as of this encounter Visit Diagnoses Diagnosis Chronic obstructive pulmonary disease, unspecified COPD type (CMS/HCC) (HCC) documented in this encounter Additional Health Concerns Assessment Noted Time PHQ-9 Depression Total Score: 4 10/21/19 23 9:37 AM EST documented as of this encounter Care Teams Airport Operations Duty Manager Relationship Specialty Start Date End Date Anne Caballero MD 230 [place] [address] PCP - General Family Medicine 07/30/12 04/30/25 Jose Huston CNP [address] [place] [address] PCP - General Family Medicine 05/01/25 documented as of this encounter
--- OUTSIDE RECORDS SUMMARY | 2025-05-14 16:29 | XMS_ITS | Encounter Summary ---
Author Organization [employer] Address [address] [place] [address] 7t [place] [address] Care Team Providers Care Gameplay Programmer Name Role Phone Anne Caballero MD Primary Care Provider [phone] Jose Huston CNP Primary Care Provider [phone] Reason for Visit * Reason Comments Med Refill Encounter Details Date Type Department Care Team ([facility] st Contact Info) Description 11/03/2022 Refill [facility] MED & PEDS 505 [place], [place] [phone] Anne Caballero MD [address] [place], [place] [phone] Chronic obstructive pulmonary disease, unspecified COPD type [...] Upcoming Encounters Date Type Department Care Team ([facility] st Contact Info) Description 10/17/2025 10:15 AM EST Office Visit [facility] ADULT DENTAL [address] [place] [address] Eddie Rodriguez documented as of this encounter Visit Diagnoses Diagnosis Chronic obstructive pulmonary disease, unspecified COPD type (CMS/HCC) (HCC) documented in this encounter Additional Health Concerns Assessment Noted Time PHQ-9 Depression Total Score: 4 10/21/19 23 9:37 AM EST documented as of this encounter Care Teams Gameplay Programmer Relationship Specialty Start Date End Date Anne Caballero MD [address] [place] [address] PCP - General Family Medicine 07/30/12 04/30/25 Jose Huston CNP 505 [place] [address] PCP - General Family Medicine 05/01/25 documented as of this encounter
--- OUTSIDE RECORDS SUMMARY | 2025-05-14 16:29 | XMS_ITS | Encounter Summary ---
Author Organization [employer] Address [address] [place] [address] 7t [place] [address] Care Team Providers Care Service Architect Name Role Phone Anne Caballero MD Primary Care Provider [phone] Jose Huston CNP Primary Care Provider [phone] Reason for Visit * Reason Comments Med Refill Encounter Details Date Type Department Care Team ([facility] st Contact Info) Description 11/03/2022 Refill [facility] MED & PEDS 505 [place], [place] [phone] Anne Caballero MD 505 [place], [place] [phone] Chronic obstructive pulmonary disease, unspecified COPD type [...] 10:15 AM EST Office Visit [facility] CHC ADULT DENTAL 505 [place] [address] Eddie Rodriguez documented as of this encounter Visit Diagnoses Diagnosis Chronic obstructive pulmonary disease, unspecified COPD type (CMS/HCC) (HCC) documented in this encounter Additional Health Concerns Assessment Noted Time PHQ-9 Depression Total Score: 4 10/21/19 23 9:37 AM EST documented as of this encounter Care Teams Service Architect Relationship Specialty Start Date End Date Anne Caballero MD 230 [place] [address] PCP - General Family Medicine 07/30/12 04/30/25 Jose Huston CNP 505 [place] [address] PCP - General Family Medicine 05/01/25 documented as of this encounter
--- OUTSIDE RECORDS SUMMARY | 2025-05-14 16:29 | XMS_ITS | Encounter Summary ---
Author Organization [employer] Address [address] [facility] 7t [place] [address] Care Team Providers Care Hi Lift Operator Name Role Phone Anne Caballero MD Primary Care Provider [phone] Jose Huston CNP Primary Care Provider [phone] Reason for Visit * Reason Onset Date Comments Hospital Follow-up 10/10/2023 Encounter Details Date Type Department Care Team (Late st Contact Info) Description 10/10/2023 Telephone [facility] MEDICINE [address] [place] [address] Anne Caballero MD [address] [place], [place] [phone] Hospital Follow-up Social History Tobacco Use Types [...] from pt requesting a HDF appt. Hospital: [facility] Date of admission: 10/03/2023 Discharge date: 10/05/2023 Diagnosed: COPD documented in this encounter Plan of Treatment Upcoming Encounters Date Type Department Care Team (Late st Contact Info) Description 10/17/2025 10:15 AM EST Office Visit [facility] ADULT DENTAL 505 [place] [address] Eddie Rodriguez documented as of this encounter Visit Diagnoses Not on filedocumented in this encounter Additional Health Concerns Assessment Noted Time PHQ-9 Depression Total Score: 4 10/21/19 23 9:37 AM EST documented as of this encounter Care Teams Hi Lift Operator Relationship Specialty Start Date End Date Anne Caballero MD 230 [place] [address] PCP - General Family Medicine 07/30/12 04/30/25 Jose Huston CNP 505 [place] [address] PCP - General Family Medicine 05/01/25 documented as of this encounter
--- OUTSIDE RECORDS SUMMARY | 2025-05-14 16:29 | XMS_ITS | Encounter Summary ---
Author Organization [employer] Address [address] [place] [address] 7t [place] [address] Care Team Providers Care Channel Specialist Name Role Phone Anne Caballero MD Primary Care Provider [phone] Jose Huston CNP Primary Care Provider [phone] Encounter Details Date Type Department Care Team (Late Contact Info) Description 09/08/2022 Orders Only [facility] MED & PEDS 505 [place] [address] Lainey Lee LPN Social History Tobacco Use [...] 10:15 AM EST Office Visit [facility] ADULT DENTAL [address] [place] [address] Eddie Rodriguez documented as of this encounter Visit Diagnoses Not on filedocumented in this encounter Care Teams Channel Specialist Relationship Specialty Start Date End Date Anne Caballero MD [address] [place] [address] PCP - General Family Medicine 07/30/12 04/30/25 Jose Huston CNP [address] [place] [address] PCP - General Family Medicine 05/01/25 documented as of this encounter
--- OUTSIDE RECORDS SUMMARY | 2025-05-14 16:29 | XMS_ITS | Encounter Summary ---
Author Organization [employer] Address [address] [facility] 7t [place] [address] Care Team Providers Care Cooperative Manager Name Role Phone Anne Caballero MD Primary Care Provider [phone] Jose Huston CNP Primary Care Provider [phone] Reason for Visit * Reason Onset Date Comments Med Refill 10/20/2023 Encounter Details Date Type Department Care Team ([facility] st Contact Info) Description 10/20/[address] [facility] MED & PEDS 505 [place], [place] [phone] Killian Rodriguez MD 505 [place], [place] [phone] Chronic obstructive pulmonary disease, unspecified COPD type [...] Description 10/17/2025 10:15 AM EST Office Visit [facility] ADULT DENTAL 505 [place] [address] Eddie Rodriguez documented as of this encounter Visit Diagnoses Diagnosis Chronic obstructive pulmonary disease, unspecified COPD type (CMS/HCC) (HCC) documented in this encounter Additional Health Concerns Assessment Noted Time PHQ-9 Depression Total Score: 4 10/21/19 23 9:37 AM EST documented as of this encounter Care Teams Cooperative Manager Relationship Specialty Start Date End Date Anne Caballero MD [address] [place] [address] PCP - General Family Medicine 07/30/12 04/30/25 Jose Huston CNP 505 [place] [address] PCP - General Family Medicine 05/01/25 documented as of this encounter
--- OUTSIDE RECORDS SUMMARY | 2025-05-14 16:29 | XMS_ITS | Encounter Summary ---
Author Organization [employer] Address [address] [place] [address] 7t [place] [address] Care Team Providers Care Gun Tester Name Role Phone Anne Caballero MD Primary Care Provider [phone] Jose Huston CNP Primary Care Provider [phone] Encounter Details Date Type Department Care Team (Late st Contact Info) Description 07/29/2022 Orders Only [facility] [address] [place], [place] [phone] Hannah Berger LPN Social History Tobacco Use [...] 10/17/2025 10:15 AM EST Office Visit [facility] CHC ADULT DENTAL [address] [place] [address] Eddie Rodriguez documented as of this encounter Visit Diagnoses Not on filedocumented in this encounter Care Teams Gun Tester Relationship Specialty Start Date End Date Anne Caballero MD [address] [place] [address] PCP - General Family Medicine 07/30/12 04/30/25 Jose Huston CNP [address] [place] [address] PCP - General Family Medicine 05/01/25 documented as of this encounter
--- OUTSIDE RECORDS SUMMARY | 2025-05-14 16:30 | XMS_ITS | Encounter Summary ---
Author Organization [employer] Address [address] [place] [address] 7t [place] [address] Care Team Providers Care Jack Machine Operator Name Role Phone Anne Caballero MD Primary Care Provider [phone] Jose Huston CNP Primary Care Provider [phone] Encounter Details Date Type Department Care Team (Late Contact Info) Description 12/30/2022 Orders Only [facility] MED & PEDS [address] [place] [address] Shruti Piña LPN Social History Tobacco Use [...] Description 10/17/2025 10:15 AM EST Office Visit [facility] ADULT DENTAL [address] [place] [address] Eddie Luna documented as of this encounter Visit Diagnoses Not on filedocumented in this encounter Additional Health Concerns Assessment Noted Time PHQ-9 Depression Total Score: 4 10/21/19 23 9:37 AM EST documented as of this encounter Care Teams Jack Machine Operator Relationship Specialty Start Date End Date Anne Caballero MD 230 [place] [address] PCP - General Family Medicine 07/30/12 04/30/25 Jose Huston CNP 505 [place] [address] PCP - General Family Medicine 05/01/25 documented as of this encounter
--- OUTSIDE RECORDS SUMMARY | 2025-05-14 16:30 | XMS_ITS | Encounter Summary ---
Author Organization [employer] Address [address] [place] [address] 7t [place] [address] Care Team Providers Care Document Management Specialist Name Role Phone Anne Caballero MD Primary Care Provider [phone] Jose Huston CNP Primary Care Provider [phone] Reason for Visit * Reason Comments Med Refill Encounter Details Date Type Department Care Team ([facility] st Contact Info) Description 01/30/2023 Refill [facility] MED & PEDS [address] [place] [address] Anne Caballero MD [address] [place] [address] Social History Tobacco Use Types Packs/Day Years [...] Description 10/17/2025 10:15 AM EST Office Visit [facility] CHC ADULT DENTAL 505 [place] [address] Eddie Rodriguez documented as of this encounter Visit Diagnoses Not on filedocumented in this encounter Additional Health Concerns Assessment Noted Time PHQ-9 Depression Total Score: 4 10/21/19 23 9:37 AM EST documented as of this encounter Care Teams Document Management Specialist Relationship Specialty Start Date End Date Anne Caballero MD [address] [place] [address] PCP - General Family Medicine 07/30/12 04/30/25 Jose Huston CNP 505 [place] [address] PCP - General Family Medicine 05/01/25 documented as of this encounter
--- OUTSIDE RECORDS SUMMARY | 2025-05-14 16:30 | XMS_ITS | Encounter Summary ---
Author Organization [employer] Address [address] [place] [address] 7t [place] [address] Care Team Providers Care Billing Machine Operator Name Role Phone Anne Caballero MD Primary Care Provider [phone] Jose Huston CNP Primary Care Provider [phone] Reason for Visit * Reason Onset Date Comments Results 01/27/2023 Encounter Details Date Type Department Care Team ([facility] st Contact Info) Description 01/27/2023 Telephone [facility] MED & PEDS 505 [place], [place] [phone] Anne Caballero MD 505 [place] [address] Results Social History Tobacco Use Types Packs/Day [...] Description 10/17/2025 10:15 AM EST Office Visit [facility] CHC ADULT DENTAL 505 [place] [address] Eddie Rodriguez documented as of this encounter Visit Diagnoses Not on filedocumented in this encounter Additional Health Concerns Assessment Noted Time PHQ-9 Depression Total Score: 4 10/21/19 9:37 AM EST documented as of this encounter Care Teams Billing Machine Operator Relationship Specialty Start Date End Date Anne Caballero MD [address] [place] [address] PCP - General Family Medicine 07/30/12 04/30/25 Jose Huston CNP 505 [place] [address] PCP - General Family Medicine 05/01/25 documented as of this encounter
--- OUTSIDE RECORDS SUMMARY | 2025-05-14 16:30 | XMS_ITS | Encounter Summary ---
Author Organization [employer] Address [address] [facility] 7t [place] [address] Care Team Providers Care Geological Sample Tester Name Role Phone Anne Caballero MD Primary Care Provider Jose Huston CNP Primary Care Provider [phone] Encounter Details Date Type Department Care Team (Late st Contact Info) Description 01/27/2023 Abstract [facility] MED & PEDS [address] [place], [place] [phone] Anne Caballero MD 505 [place] [address] Social History Tobacco Use Types Packs/Day Years [...] Description 10/17/2025 10:15 AM EST Office Visit [facility] CHC ADULT DENTAL [address] [place] [address] Eddie Rodriguez documented as of this encounter Visit Diagnoses Not on filedocumented in this encounter Additional Health Concerns Assessment Noted Time PHQ-9 Depression Total Score: 4 10/21/19 23 9:37 AM EST documented as of this encounter Care Teams Geological Sample Tester Relationship Specialty Start Date End Date Anne Caballero MD [address] [place] [address] PCP - General Family Medicine 07/30/12 04/30/25 Jose Huston CNP [address] [place] [address] PCP - General Family Medicine 05/01/25 documented as of this encounter
== END 2025-05-14 15:51 | disposition home or self-care (01) ==
LOC: HO.CT 15:50
PROVIDERS: PCP Nurse Practitioner Family; Visit Provider Nurse Practitioner Family
DX: R91.1 Solitary pulmonary nodule (principal)
CPT/HCPCS: 71250

== ENCOUNTER → 2025-05-14 15:51 | Outpatient (BNV) | payer OTHER, SELFPAY | PROVIDERS: PCP Nurse Practitioner Family; Visit Provider Radiology Diagnostic Radiology | DX: R91.1 Solitary pulmonary nodule (principal); K76.89 Other specified diseases of liver; M51.369 Other intervertebral disc degeneration, lumbar region without mention of lumbar back pain or lower extremity pain; M41.86 Other forms of scoliosis, lumbar region | CPT/HCPCS: 71250 ==

== ENCOUNTER 2025-07-14 12:26 | Inpatient (IN) | payer OTHER, SELFPAY ==
[2025-07-14] VITALS (10 sets, daily range): BP systolic 123–136; BP diastolic 83–93; PULSE 80–936; RESP 16–24; TEMP 36.2–37.1; O2SAT 90–96; BMI 19.4
--- NOTE | ~2025-07-14 | XR_ITS ---
EXAMINATION: XR CHEST CLINICAL INFORMATION: dyspnea COMPARISON: 05/01/2025. CT chest 05/14/2025. TECHNIQUE: 2 views of the chest were obtained. FINDINGS: The cardiac, hilar, and mediastinal contours are normal. Lungs are diffusely hyperaerated with flattened hemidiaphragms, findings consistent with COPD. Lungs otherwise clear. There is no pneumothorax or pleural effusion. There is no focal osseous or soft tissue abnormality. There are degenerative changes of the spine. XR/XR chest 2V IMPRESSION: COPD. No active superimposed disease. Electronically signed by: Matt Denise MD 07/14/2025 02:08 PM [facility]
--- NOTE | 2025-07-14 12:28 | ED.GENADULT ---
HPI - General Adult General Chief complaint: Upper Respiratory Symptoms Stated complaint: Diff Breathing Time Seen by Provider: 07/14/25 14:13 Source: patient Mode of arrival: ambulatory Limitations: no limitations History of Present Illness ED Provider: MADDI SPRAGUE PA-C HPI narrative: 69 year old female with pmhx significant for asthma/COPD, HTN and nicotine dependence (current smoker) presents to the ED today for evaluation of shortness of breath x few days, worsening last night. Reports associated cough productive of yellow sputum along with headache. She reports taking Tylenol and using her inhaler/nebulizer at home without much relief. Denies fever, chills, chest pain, hemoptysis, weakness, leg pain/swelling. No known sick contacts. Admits to multiple admissions for COPD in the past. She has never required intubation. She is not dependent on supplemental oxygen at baseline. Related Data Home Medications ?Medication ?Instructions ?Recorded ?Confirmed simvastatin 10 mg tablet 10 mg PO BEDTIME 01/28/21 05/02/25 albuterol sulfate 90 mcg/actuation 2 puff PO Q4H PRN Shortness Of 02/03/22 05/02/25 aerosol inhaler Breath Or Wheezing amlodipine 5 mg tablet 5 mg PO DAILY 02/03/22 05/02/25 cholecalciferol (vitamin D3) 25 25 mcg PO DAILY 07/21/23 05/02/25 mcg (1,000 unit) capsule (Vitamin D3) cetirizine 10 mg tablet 10 mg PO DAILY PRN ALLERGIES 07/17/24 05/02/25 nicotine 21 mg/24 hr daily 21 mg transdermal DAILY PRN 07/17/24 05/02/25 transdermal patch Smoking Cessation buspirone 5 mg tablet 5 mg PO BID 05/02/25 05/02/25 celecoxib 200 mg capsule 200 mg PO DAILY PRN Pain (Scale 05/02/25 05/02/25 Score 4-6) clonazepam 0.5 mg tablet 0.25 mg PO DAILY PRN Anxiety 05/02/25 05/02/25 tizanidine 2 mg tablet 2 mg PO Q6H PRN Muscle Spasm 05/02/25 05/02/25 Previous Rx's ?Medication ?Instructions ?Recorded fluticasone fur. 200 mcg-umeclid 1 inh inhalation DAILY #60 ea 01/07/25 62.5 mcg-vilant 25 mcg inhalat.powder (Trelegy Ellipta) ipratropium 0.5 mg-albuterol 3 mg 3 ml inhalation Q6H PRN wheezing 01/07/25 (2.5 mg base)/3 mL nebulization #180 mL soln doxycycline monohydrate 100 mg 100 mg PO DAILY #7 caps 05/04/25 capsule nicotine 21 mg/24 hr daily 1 patch transdermal DAILY #28 ea 05/04/25 transdermal patch prednisone 20 mg tablet 40 mg (2 x 20 mg) PO DAILY #6 tabs 05/04/25 Allergies Allergy/AdvReac Type Severity Reaction Status Date / Time No Known Allergies (No Known Allergy Verified 07/14/25 12:30 Allergies*) Review of Systems Review of Systems: Yes all other systems are reviewed and are negative [facility] Past Medical History Attestation statement: The following information was validated with the patient. Source: old records reviewed and nursing notes reviewed Medical History Multiple pulmonary nodules Asthma Hypertension COPD (chronic obstructive pulmonary disease) Surgical History H/O total hysterectomy Hx of colonoscopy (~05/2019) History of tubal ligation Family History Family History Mother Breast CA Social History Social History Household Members: None Household Members Other:: goes to significant other house 3x a week Housing: House Housing Other:: second floor Do you presently have visiting nurse or other home services: Yes ([employer]) Alcohol intake: current Alcohol intake frequency: does not drink Patient Tobacco Use Status: Current everyday Tobacco user Tobacco use type: Cigarette Cigarette Packs Per Day: 0.25 Cigarettes Per Day: 3 Smoked in Last 30 Days: Yes e-Cigarette/Vaping Use: Never Used Second Hand Smoke Exposure: No Substance Use Type: Marijuana Advance Directives: Yes Advance Directives on File: Yes Advance Directives Date on File: 05/02/25 Do you have a plan to hurt others: No Plan service: No Current occupational status: retired Physical Exam ED Vital Signs: Vital Signs - 24 hr 07/14/25 12:29 07/14/25 12:49 07/14/25 13:59 Temperature 98.1 F 97.1 F Pulse Rate 100 936 H 89 Respiratory Rate 24 H 24 H 24 H Blood Pressure 136/93 H 129/83 Pulse Oximetry 90 L 91 L Oxygen Delivery Method Room Air Nasal Cannula Oxygen Flow Rate 1 07/14/25 14:57 07/14/25 15:05 Temperature Pulse Rate 86 Respiratory Rate 20 Blood Pressure 123/88 Pulse Oximetry 94 94 Oxygen Delivery Method Nasal Cannula Nasal Cannula Oxygen Flow Rate 1 BMI result Body Mass Index 19.4 O2 saturation 91-93% on 1L NC during exam. General: Nontoxic appearing, in moderate respiratory distress. Skin: Warm, dry, intact. No rashes or lesions. Head: Normocephalic, atraumatic. EENT: Hearing is intact b/l. Conjunctiva clear. PERRLA. EOM intact. Moist mucous membranes.? Neck: Supple without LAD? Cardiac: Chest wall symmetric. RRR Lungs: Labored respiratory effort without accessory muscle use, speaking in 2-3 word sentences. diffuse inspiratory and expiratory wheezes. Back: No midline spinous or paraspinal tenderness. No step off deformity. Ext: No pitting edema, no calf tenderness bilaterally Neuro: AOx3. Normal speech. Ambulating with steady gait. Course Course Course Narrative: This is a rapid medical exam performed by Hans Omalley NP: Additional HPI, ROS, PE not included below will be deferred to primary provider. Patient is a 69y/o F with pmhx of COPD, asthma, pulmonary nodules, HTN presenting with acute dyspnea since last night, cough productive of white/yellow sputum. Denies chest pain. O2 90-91% on room air in triage. Increased WOB, inspiratory and expiratory wheezing. hand spray operator notified. Plan: EKG, CXR, viral swabs, labs Reevaluation(s) Reevaluation #1: CBC without leukocytosis or left shift. No anemia, H&H stable. Chemistry without acute electrolyte abnormality requiring intervention. No XIOMARA. Liver function WNL. Troponin undetectable. Lactic WNL. Blood cultures pending. Negative COVID, flu, RSV. CXR does not demonstrate pneumonia or pulmonary edema. EKG without acute ischemic changes. ddimer negative - PE unlikely. > patient treated with DuoNeb, IV Solu-Medrol and IV magnesium. Reports minimal relief in symptoms, requiring 1L supplemental O2. > case discussed with hospitalist tee cordoba - accepted admission to medicine for management of acute hypoxic respiratory failure in the setting of COPD exacerbation. Patient agreeable. Medications Administered Discontinued Medications Generic Name Dose Route Start Last Admin Trade Name Freq PRN Reason Stop Dose Admin Albuterol Sulfate 5 mg/ 0 mg 07/14/25 12:45 07/14/25 12:49 Albuterol/Ipratropium 3 ml INHALE 07/14/25 12:46 7.5 each ONCE ONE Administration Magnesium Sulfate 2 gm in 50 mls @ 150 mls/hr 07/14/25 14:17 07/14/25 15:08 Magnesium Sulfate/H2o IV 07/14/25 14:36 Infused ONCE ONE Infusion Ceftriaxone Sodium 1 gm/ 50 mls @ 100 mls/hr 07/14/25 16:34 07/14/25 17:13 Sodium Chloride IV 07/14/25 17:03 100 mls/hr ONCE ONE Administration Methylprednisolone Sodium Succinate 80 mg 07/14/25 14:17 07/14/25 14:48 Methylprednisolone Sod Succ 125 Mg/2 Ml Vial IVPUSH 07/14/25 14:18 80 mg ONCE ONE Administration Medical Decision Making Medical Decision Making [facility] Narrative: 69 year old female with pmhx significant for asthma/COPD, HTN and nicotine dependence (current smoker) presents to the ED today for evaluation of shortness of breath x few days, worsening last night. satting 90% on RA, placed on 1L NC. on exam, labored respiratory effort without accessory muscle use, speaking in 2-3 word sentences. diffuse inspiratory and expiratory wheezes. Differential diagnosis includes viral syndrome, pneumonia, bronchitis, COPD exacerbation, PE, arrhythmia, ACS Plan for labs, EKG, chest x-ray, bronch protocol, re-evaluation Differential Diagnosis Differential Diagnoses: The differential diagnosis associated with the presentation includes as above. Admission/Observation Consideration of admission/observation: Escalation of care including admission/observation considered Patient to be admitted to medicine for management of acute hypoxic respiratory failure in the setting of COPD exacerbation. Consult Healthcare Provider Management of the patient was discussed with: Hospitalist (tee cordoba) Lab Data MDM Lab Attestation statement: I reviewed the patient's lab results. as above. 07/14/25 13:15 07/14/25 15:36 Labs: Lab Results 12/09/0707/14/25 07/14/25 Range/Units 13:15 13:24 15:36 WBC 5.6 (4.8-10.8) X10*3/uL RBC 5.06 (4.20-5.50) X10*6/uL Hgb 15.8 (12.0-16.0) g/dl Hct 46.7 (37.0-47.0) % MCV 92.3 (80.0-98.0) fL MCH 31.2 (27.0-33.0) pg MCHC 33.8 (31.0-35.0) g/dl RDW 13.0 (11.0-16.0) % Plt Count 221 (160-400) X10*3/uL MPV 8.5 L (9.4-12.3) fL Immature Gran % (Auto) 0.2 (0.0-0.4) % Neut % (Auto) 63.4 (45-73) % Lymph % (Auto) 19.0 L (20-40) % [place] % (Auto) 11.1 H (2-11) % Eos % (Auto) 5.4 H (0-4) % Baso % (Auto) 0.9 (0-2) % Lymph # (Auto) 1.1 L (1.2-4.9) X10*3/uL [place] # (Auto) 0.6 (0.1-1.2) X10*3/uL Eos # (Auto) 0.3 (0.0-0.4) X10*3/uL Baso # (Auto) 0.1 (0.0-0.2) X10*3/uL Abs Immat Gran (auto) 0.01 (0.00-0.03) X10*3/uL Absolute Neuts (auto) 3.6 (2.0-8.3) x10*3/uL Absolute Nucleated RBC 0.000 (0.0-0.012) X10*3/uL Nucleated RBC % (auto) 0.0 (0.0-0.2) /100WBC PT 12.2 (11.2-13.5) SEC INR 1.0 (0.9-1.1) D-Dimer High Sensitivty < 150 NG/ML VBG pH 7.47 H (7.32-7.43) VBG pCO2 33 mmHg VBG pO2 41 mmHg VBG HCO3 25 (22-26) mmol/L VBG O2 Saturation 74.0 % VBG Base Excess 2.2 mmol/L Sodium 140 (135-145) mmol/L Potassium 3.7 (3.3-5.1) mmol/L Chloride 106 (96-108) mmol/L Carbon Dioxide 28 (22-29) mmol/L Anion Gap 10 L (12-20) BUN 17 H (9-16) mg/dL Creatinine 0.96 (0.5-1.4) mg/dL Estim Creat Clear Calc 46.2 Estimated GFR 57 Random Glucose 102 (60-115) mg/dL Lactic Acid (0.5-2.0) mmol/L Calcium 9.4 (8.4-10.2) mg/dL Total Bilirubin 0.6 (0.0-1.0) mg/dL AST 20 (5-31) U/L ALT 8 (0-31) U/L Alkaline Phosphatase 62 (39-117) U/L Troponin I High Sens < 2.7 (<3.5-17.0) ng/L Total Protein 6.1 L (6.5-8.0) g/dL Albumin 3.8 (3.5-5.0) g/dL Influenza Type A (PCR) NEGATIVE (Negative) Influenza Type B (PCR) NEGATIVE (Negative) RSV RNA Qual (PCR) NEGATIVE (Negative) SARS-CoV-2 RNA (RT-PCR) NEGATIVE (Negative) 07/14/25 Range/Units 16:56 WBC (4.8-10.8) X10*3/uL RBC (4.20-5.50) X10*6/uL Hgb (12.0-16.0) g/dl Hct (37.0-47.0) % MCV (80.0-98.0) fL MCH (27.0-33.0) pg MCHC (31.0-35.0) g/dl RDW (11.0-16.0) % Plt Count (160-400) X10*3/uL MPV (9.4-12.3) fL Immature Gran % (Auto) (0.0-0.4) % Neut % (Auto) (45-73) % Lymph % (Auto) (20-40) % [place] % (Auto) (2-11) % Eos % (Auto) (0-4) % Baso % (Auto) (0-2) % Lymph # (Auto) (1.2-4.9) X10*3/uL [place] # (Auto) (0.1-1.2) X10*3/uL Eos # (Auto) (0.0-0.4) X10*3/uL Baso # (Auto) (0.0-0.2) X10*3/uL Abs Immat Gran (auto) (0.00-0.03) X10*3/uL Absolute Neuts (auto) (2.0-8.3) x10*3/uL Absolute Nucleated RBC (0.0-0.012) X10*3/uL Nucleated RBC % (auto) (0.0-0.2) /100WBC PT (11.2-13.5) SEC INR (0.9-1.1) D-Dimer High Sensitivty NG/ML VBG pH (7.32-7.43) VBG pCO2 mmHg VBG pO2 mmHg VBG HCO3 (22-26) mmol/L VBG O2 Saturation % VBG Base Excess mmol/L Sodium (135-145) mmol/L Potassium (3.3-5.1) mmol/L Chloride (96-108) mmol/L Carbon Dioxide (22-29) mmol/L Anion Gap (12-20) BUN (9-16) mg/dL Creatinine (0.5-1.4) mg/dL Estim Creat Clear Calc Estimated GFR Random Glucose (60-115) mg/dL Lactic Acid 1.1 (0.5-2.0) mmol/L Calcium (8.4-10.2) mg/dL Total Bilirubin (0.0-1.0) mg/dL AST (5-31) U/L ALT (0-31) U/L Alkaline Phosphatase (39-117) U/L Troponin I High Sens (<3.5-17.0) ng/L Total Protein (6.5-8.0) g/dL Albumin (3.5-5.0) g/dL Influenza Type A (PCR) (Negative) Influenza Type B (PCR) (Negative) RSV RNA Qual (PCR) (Negative) SARS-CoV-2 RNA (RT-PCR) (Negative) Independent Interpretation I performed an independent interpretation of an: EKG and Plain X-Ray Interpretation: EKG showing normal sinus rhythm, rate of 95 beats per minute, QT 352, QTC 442, no acute ischemic changes or ST elevations Chest x-ray without infiltrate or consolidation Radiology Impression Discussion of test interpretation with radiology: I have reviewed the radiologist's reading. Radiologist Impression: Date of Service: 07/14/25 Procedure(s): XR chest 2V Accession Number(s): [id number] cc: Myesha Omalley BAND CUTTER; Jose Huston BAND CUTTER~ Reason for Exam: dyspnea EXAMINATION: XR CHEST CLINICAL INFORMATION: dyspnea COMPARISON: 05/01/2025. CT chest 05/14/2025. TECHNIQUE: 2 views of the chest were obtained. FINDINGS: The cardiac, hilar, and mediastinal contours are normal. Lungs are diffusely hyperaerated with flattened hemidiaphragms, findings consistent with COPD. Lungs otherwise clear. There is no pneumothorax or pleural effusion. There is no focal osseous or soft tissue abnormality. There are degenerative changes of the spine. XR/XR chest 2V IMPRESSION: COPD. No active superimposed disease. Electronically signed by: Matt Denise MD 07/14/2025 02:08 PM [facility] External Record Review External record reviewed: Inpatient record, Office record, Outpatient record, Prior outpatient labs and Prior outpatient radiology Prescription Management I considered prescription management with: Antibiotic Chronic Conditions Patient?s care impacted by: Other (COPD) Social Determinants Patient?s care significantly limited by Social Determinants of Health including: Other Social Determinant of Health Critical Care Time Critical Care Time Critical Care Time: Yes Total Critical Care Time: 48 Attestation: Critical care time in the amount of 48 minutes has been provided to the patient in terms of direct patient care, frequent reevaluation, review and interpretation of medical data and results, and management of potentially life-threatening conditions. This is all outside of any medical procedures. Discharge Plan Discharge Clinical Impression: Acute hypoxic respiratory failure, Asthma exacerbation in COPD Patient Disposition: Admitted As Inpatient
--- NOTE | 2025-07-14 12:31 | ECG_ITS ---
Test Reason : SOB Blood Pressure : */* mmHG Vent. Rate : 95 BPM Atrial Rate : 95 BPM P-R Int : 126 ms QRS Dur : 70 ms QT Int : 352 ms P-R-T Axes : 75 67 75 degrees QTcB Int : 442 ms Normal sinus rhythm Possible Left atrial enlargement Borderline ECG When compared with ECG of 02-May-2025 11:29, No significant change was found Referred By: Myesha Omalley Electronically Signed By: CHRIS ROSA
[2025-07-14] MEDS: Albuterol Sulfate 5 MG, Albuterol/Iprat 2.5/0.5MG 3 ML 3 ML INHALE (12:49)
[2025-07-14 13:25] LABS: MANUAL DIFF FLAG NO
[2025-07-14 13:28] LABS: Hematocrit 46.7 % (37.0-47.0); Hemoglobin 15.8 g/dl (12.0-16.0); Imm Gran Abs Auto 0.01 X10*3/uL (0.00-0.03); Imm Gran Pct Auto 0.2 % (0.0-0.4); Lymphocytes Absolute Auto 1.1 X10*3/uL (1.2-4.9); Mean Corpuscular HGB Conc 33.8 g/dl (31.0-35.0); Mean Corpuscular Hemoglobin 31.2 pg (27.0-33.0); Mean Corpuscular Volume 92.3 fL (80.0-98.0); NRBC Abs Auto 0.000 X10*3/uL (0.0-0.012); NRBC Pct Auto 0.0 /100WBC (0.0-0.2); Platelet Count 221 X10*3/uL (160-400); Red Blood Count 5.06 X10*6/uL (4.20-5.50); White Blood Count 5.6 X10*3/uL (4.8-10.8)
[2025-07-14 13:29] LABS: VBG HCO3 25 mmol/L (22-26); VBG O2 % Saturation 74.0 %
[2025-07-14 13:32] LABS: Venous Blood Gas Refer to POC result
[2025-07-14 13:37] LABS: INTERNATIONAL NORM RATIO 1.0 (0.9-1.1); Prothrombin Time 12.2 SEC (11.2-13.5)
[2025-07-14 13:55] LABS: Troponin-I High Sensitivity < 2.7 ng/L (<3.5-17.0)
[2025-07-14 14:35] LABS: Resp Syncy Virus RNA Qual PCR NEGATIVE (Negative); SARS COV2 PCR INHOUSE NEGATIVE (Negative)
[2025-07-14] MEDS: Magnesium Sulfate/H2O 2 GM/50 ML PIGGYBACK IV (14:48)
[2025-07-14 15:27] LABS: D Dimer High Sensitivity < 150 NG/ML
--- NOTE | 2025-07-14 16:15 | PC.NURSE ---
T/w spoke to Sola in lab RE: recollect CMP & Mg for patient. Should be resulting in the next 5 minutes
[2025-07-14 16:32] LABS: Alanine Aminotransferase 8 U/L (0-31); Albumin Level 3.8 g/dL (3.5-5.0); Alkaline Phosphatase 62 U/L (39-117); Anion Gap 10 (12-20); Aspartate Amino Transferase 20 U/L (5-31); Blood Urea Nitrogen 17 mg/dL (9-16); Calcium 9.4 mg/dL (8.4-10.2); Carbon Dioxide 28 mmol/L (22-29); Chloride 106 mmol/L (96-108); Creatinine Clr Calc Pharmacy 46.2; Estimated Glomerular Filt Rate 57; Potassium 3.7 mmol/L (3.3-5.1); Sodium 140 mmol/L (135-145); Total Protein 6.1 g/dL (6.5-8.0)
--- OUTSIDE RECORDS SUMMARY | 2025-07-14 16:57 | XMS_ITS | Encounter Summary ---
Author Organization [employer] Address [address] [place] [address] [address] [place] [address] Care Team Providers Care School Age Program Associate Name Role Phone Anne Caballero MD Primary Care Provider [phone] Killian Rodriguez MD Primary Care Provider [phone] Encounter Details Date Type Department Care Team (Latest Contact Info) Description 06/07/2022 Abstract [facility] CONVERSIONS Dental, Provider, DDS Social History [...] Care Team (Late st Contact Info) Description 07/22/2025 10:15 AM EST Office Visit [facility] MED & PEDS [address] [place] [address] Killian Rodriguez MD [address] [place] [address] 10/17/2025 10:15 AM EST Office Visit [facility] ADULT DENTAL [address] [place] [address] Eddie Rodriguez documented as of this encounter Visit Diagnoses Not on filedocumented in this encounter Care Teams School Age Program Associate Relationship Specialty Start Date End Date Anne Caballero MD [address] [place] [id number] PCP - General Family Medicine 07/30/12 04/30/25 Killian Rodriguez MD [address] [place] [address] PCP - General Internal Medicine 06/26/25 documented as of this encounter
--- OUTSIDE RECORDS SUMMARY | 2025-07-14 16:57 | XMS_ITS | Encounter Summary ---
Author Organization [employer] Address [address] [place] [address] 7t [place] [address] Care Team Providers Care Maple Products Maker Name Role Phone Anne Caballero MD Primary Care Provider [phone] Killian Rodriguez MD Primary Care Provider [phone] Reason for Visit * Reason Comments Med Refill Encounter Details Date Type Department Care Team ([facility] st Contact Info) Description 11/03/[address] [facility] MED & PEDS [address] [place], [place] [phone] Anne Caballero MD [address] [place], [place] [phone] Chronic obstructive pulmonary disease, unspecified COPD type [...] Description 07/22/2025 10:15 AM EST Office Visit [facility] MED & PEDS [address] [place] [address] Killian Rodriguez MD [address] [place] [address] 10/17/2025 10:15 AM EST Office Visit [facility] ADULT DENTAL [address] [place] [address] Eddie Rodriguez documented as of this encounter Visit Diagnoses Diagnosis Chronic obstructive pulmonary disease, unspecified COPD type (CMS/HCC) (HCC) documented in this encounter Additional Health Concerns Assessment Noted Time PHQ-9 Depression Total Score: 4 10/21/19 23 9:37 AM EST documented as of this encounter Care Teams Maple Products Maker Relationship Specialty Start Date End Date Anne Caballero MD [address] [place] [id number] PCP - General Family Medicine 07/30/12 04/30/25 Killian Rodriguez MD [address] [place] [address] PCP - General Internal Medicine 06/26/25 documented as of this encounter
--- OUTSIDE RECORDS SUMMARY | 2025-07-14 16:57 | XMS_ITS | Encounter Summary ---
Author Organization [employer] Address [address] [facility] 7t [place] [address] Care Team Providers Care Cook Chef Name Role Phone Anne Caballero MD Primary Care Provider [phone] Killian Rodriguez MD Primary Care Provider [phone] Encounter Details Date Type Department Care Team (Latest Contact Info) Description 11/13/2018 Abstract [facility] CONVERSIONS Dental, Provider, DDS Social History Tobacco [...] Description 07/22/2025 10:15 AM EST Office Visit [facility] MED & PEDS [address] [place] [address] Killian Rodriguez MD [address] [place] [address] 10/17/2025 10:15 AM EST Office Visit [facility] ADULT DENTAL [address] [place] [address] Eddie Rodriguez documented as of this encounter Visit Diagnoses Not on filedocumented in this encounter Care Teams Cook Chef Relationship Specialty Start Date End Date Anne Caballero MD [address] [place] [address] PCP - General Family Medicine 07/30/12 04/30/25 Killian Rodriguez MD [address] [place] [address] PCP - General Internal Medicine 06/26/25 documented as of this encounter
--- OUTSIDE RECORDS SUMMARY | 2025-07-14 16:57 | XMS_ITS | Encounter Summary ---
Author Organization [employer] Address [address] [place] [address] 7[address] [place] [address] Care Team Providers Care Manager Nicu Name Role Phone Anne Caballero MD Primary Care Provider [phone] Killian Rodriguez MD Primary Care Provider [phone] Encounter Details Date Type Department Care Team ([facility] Contact Info) Description 09/08/2022 Orders Only [facility] MED & PEDS [address] [place] [address] Lainey Lee LPN Social History Tobacco Use [...] Upcoming Encounters Date Type Department Care Team ([facility] Contact Info) Description 07/22/2025 10:15 AM EST Office Visit [facility] MED & PEDS [address] [place] [address] Killian Rodriguez MD [address] [place] [address] 10/17/2025 10:15 AM EST Office Visit [facility] ADULT DENTAL [address] [place] [address] Eddie Rodriguez documented as of this encounter Visit Diagnoses Not on filedocumented in this encounter Care Teams Manager Nicu Relationship Specialty Start Date End Date Anne Caballero MD [address] [place] [address] PCP - General Family Medicine 07/30/12 04/30/25 Killian Rodriguez MD [address] [place] [address] PCP - General Internal Medicine 06/26/25 documented as of this encounter
--- OUTSIDE RECORDS SUMMARY | 2025-07-14 16:57 | XMS_ITS | Encounter Summary ---
Author Organization [employer] Address [address] [facility] 7t [place] [address] Care Team Providers Care Body Engineer Name Role Phone Anne Caballero MD Primary Care Provider [phone] Killian Rodriguez MD Primary Care Provider [phone] Reason for Visit * Reason Onset Date Comments Med Refill 03/13/2024 Encounter Details Date Type Department Care Team ([facility] st Contact Info) Description 03/13/2024 Refill [facility] MED & PEDS [address] [place], [place] [phone] Anne Caballero MD [address] [place] [address] Chronic obstructive pulmonary disease, unspecified COPD type [...] Description 07/22/2025 10:15 AM EST Office Visit [facility] MED & PEDS [address] [place] [address] Killian Rodriguez MD [address] [place] [address] 10/17/2025 10:15 AM EST Office Visit [facility] ADULT DENTAL [address] [place] [address] Eddie Rodriguez documented as of this encounter Visit Diagnoses Diagnosis Chronic obstructive pulmonary disease, unspecified COPD type (CMS/HCC) (HCC) documented in this encounter Additional Health Concerns Assessment Noted Time PHQ-9 Depression Total Score: 4 10/21/19 23 9:37 AM EST documented as of this encounter Care Teams Body Engineer Relationship Specialty Start Date End Date Anne Caballero MD [address] [place] [phone] PCP - General Family Medicine 07/30/12 04/30/25 Killian Rodriguez MD [address] [place] [address] PCP - General Internal Medicine 06/26/25 documented as of this encounter
--- OUTSIDE RECORDS SUMMARY | 2025-07-14 16:57 | XMS_ITS | Encounter Summary ---
Author Organization [employer] Address [address] [place] [address] [address]t [place] [address] Care Team Providers Care Paper Wrapping Machine Operator Name Role Phone Anne Caballero MD Primary Care Provider [phone] Killian Rodriguez MD Primary Care Provider [phone] Encounter Details Date Type Department Care Team (Latest Contact Info) Description 04/22/[address] [facility] CONVERSIONS Dental, Provider, DDS Social History Tobacco [...] 07/22/2025 10:15 AM EST Office Visit [facility] MED & PEDS [address] [place] [address] Killian Rodriguez MD [address] [place] [address] 10/17/2025 10:15 AM EST Office Visit [facility] ADULT DENTAL [address] [place] [address] Eddie Rodriguez documented as of this encounter Visit Diagnoses Not on filedocumented in this encounter Care Teams Paper Wrapping Machine Operator Relationship Specialty Start Date End Date Anne Caballero MD [address] [place] [address] PCP - General Family Medicine 07/30/12 04/30/25 Killian Rodriguez MD [address] [place] [phone] PCP - General Internal Medicine 06/26/25 documented as of this encounter
--- OUTSIDE RECORDS SUMMARY | 2025-07-14 16:57 | XMS_ITS | Encounter Summary ---
Author Organization [employer] Address [address] [place] [address] 7t [place] [address] Care Team Providers Care Felt Hat Flanging Operator Name Role Phone Anne Caballero MD Primary Care Provider [phone] Killian Rodriguez MD Primary Care Provider [phone] Reason for Visit * Reason Comments Med Refill Encounter Details Date Type Department Care Team ([facility] st Contact Info) Description 11/03/2022 Refill [facility] MED & PEDS [address] [place], [place] [phone] Anne Caballero MD [address] [place], [place] [phone] Chronic obstructive pulmonary disease, unspecified COPD type [...] 10:15 AM EST Office Visit [facility] MED & PEDS [address] [place] [address] Killian Rodriguez MD 505 [place] [address] 10/17/2025 10:15 AM EST Office Visit [facility] ADULT DENTAL [address] [place] [address] Eddie Rodriguez documented as of this encounter Visit Diagnoses Diagnosis Chronic obstructive pulmonary disease, unspecified COPD type (CMS/HCC) (HCC) documented in this encounter Additional Health Concerns Assessment Noted Time PHQ-9 Depression Total Score: 4 10/21/19 23 9:37 AM EST documented as of this encounter Care Teams Felt Hat Flanging Operator Relationship Specialty Start Date End Date Anne Caballero MD [address] [place] [address] PCP - General Family Medicine 07/30/12 04/30/25 Killian Rodriguez MD [address] [place] [address] PCP - General Internal Medicine 06/26/25 documented as of this encounter
--- OUTSIDE RECORDS SUMMARY | 2025-07-14 16:57 | XMS_ITS | Encounter Summary ---
Author Organization [employer] Address [address] [place] [address] [address] [place] [address] Care Team Providers Care Director Regulatory Agency Name Role Phone Anne Caballero MD Primary Care Provider [phone] Killian Rodriguez MD Primary Care Provider [phone] Encounter Details Date Type Department Care Team (Late Contact Info) Description 07/29/2022 Orders Only [facility] [address] [place] [address] Hannah Berger LPN Social History Tobacco Use [...] Department Care Team (Late Contact Info) Description 07/22/2025 10:15 AM EST Office Visit [facility] MED & PEDS [address] [place], [place] [phone] Killian Rodriguez MD 505 [place] [address] 10/17/2025 10:15 AM EST Office Visit [facility] ADULT DENTAL [address] [place] [address] Eddie Rodriguez documented as of this encounter Visit Diagnoses Not on filedocumented in this encounter Care Teams Director Regulatory Agency Relationship Specialty Start Date End Date Anne Caballero MD [address] [place] [address] PCP - General Family Medicine 07/30/12 04/30/25 Killian Rodriguez MD [address] [place] [address] PCP - General Internal Medicine 06/26/25 documented as of this encounter
--- OUTSIDE RECORDS SUMMARY | 2025-07-14 16:57 | XMS_ITS | Clinical Summary ---
Author Organization [employer] Address [address] [place] [address] 7t [place] [address] Care Team Providers Care Explosive Technician Name Role Phone Killian Rodriguez MD Primary Care Provider Allergies No known active allergies Medications Fluticasone Furoate-Vilante rol 200-25 MCG/ACT aerosol powder INHALE ONE PUFF BY MOUTH EVERY DAY AT THE SAME TIME EVERY DAY 2 Active ketotifen (Zaditor) 0.025 % ophthalmic solution ADMINISTER 1 DROP INTO BOTH EYES TWO TIMES A DAY 10 mL 3 Active Fluticasone Furoate-Vilante rol (Breo Ellipta) 200-25 MCG/ACT aerosol powderIndicatio ns:Chronic obstructive pulmonary disease, unspecified COPD type (CMS/HCC) (HCC) Inhale 200 mcg Once per day. 60 each 3 4 Active albuterol 1.25 MG/3ML nebulizer solutionIndicat ions:Chronic obstructive pulmonary disease, unspecified COPD type (CMS/HCC) (HCC) Take 3 mL (1.25 mg) by nebulization every 4 (four) hours if needed for wheezing. 75 mL 11 4 Active amitriptyline (Elavil) 10 MG tablet Take 1 tablet (10 mg) by mouth at bedtime. 30 tablet 11 4 Active Trelegy Ellipta 200-62.5-25 MCG/ACT aerosol powder Inhale 1 puff Once per day. 4 Active cetirizine (ZyrTEC) 10 MG tablet TAKE ONE TABLET BY MOUTH EVERY DAY 90 tablet 4 Active acetaminophen (Tylenol) 500 MG tablet [...] to 30 doses. 30 tablet 5 Active amLODIPine (Norvasc) 5 MG tablet Take 1 tablet (5 mg) by mouth Once per day. 30 tablet 11 5 Active D3-1000 25 MCG (1000 UT) capsule TAKE ONE CAPSULE BY MOUTH EVERY MORNING 90 capsule 5 Active tiZANidine (Zanaflex) 2 MG tablet TAKE ONE TABLET BY MOUTH EVERY 6 HOURS IF NEEDED FOR MUSCLE SPASM FOR UP TO 10 DAYS. 30 tablet 5 Active albuterol 108 (90 Base) MCG/ACT inhalerIndicati ons:Chronic obstructive pulmonary disease, unspecified COPD type (CMS/HCC) ([facility]) INHALE TWO PUFFS BY MOUTH EVERY 4 HOURS IF NEEDED FOR WHEEZING 18 g 3 5 Active busPIRone (Buspar) 5 MG tabletIndicatio ns:Anxiety Take 1 tablet (5 mg) by mouth 2 times daily. 60 tablet 11 5 04/10/20 26 Active clonazePAM (KlonoPIN) 0.5 MG tabletIndicatio ns:Anxiety Take 0.5 tablets (0.25 mg) by mouth if needed each day for anxiety. 15 tablet 5 Active celecoxib (CeleBREX) 200 MG capsule Take 1 capsule (200 mg) by mouth Once per day. 30 capsule 3 5 Active simvastatin (Zocor) 10 MG tablet TAKE ONE TABLET BY MOUTH DAILY AT BEDTIME 90 tablet 1 5 Active Active Problems Problem Noted Date Diagnosed [...] Hyperlipidemia 02/13/2012 Hyperthyroidism 02/13/2012 Chronic hepatitis C (CMS/HCC) 02/13/2012 Encounters Date Type Department Care Team Description 07/14/2025 Patient Outreach [facility] MED & PEDS [address] [place] [address] Killian Rodriguez MD Pre-visit Planning (SDOH was already completed ) 07/14/2025 Orders Only GENERIC EXTERNAL DATA DEPARTMENT Provider, Generic External Data 06/04/2025 Refill [facility] MEDICINE [address] [place] [address] Anne Caballero MD 05/06/2025 Refill [facility] MED & PEDS [address] [place] [address] Jose Huston CNP 05/01/2025 11:30 AM EDT Telemedicine [facility] MED & PEDS [address] [place] [address] Anne Caballero MD Anxiety 05/01/2025 Travel 05/01/2025 Telephone [facility] MED & PEDS [address] [place] [address] Anne Caballero MD Transition Of Care (Tcm) 04/30/2025 Telephone [facility] MED & PEDS [address] [place] [address] Anne Caballero MD Chart Prep 04/15/2025 10:00 AM EDT Office Visit [facility] ADULT DENTAL [address] [place] [address] Eddie Rodriguez Dental calculus (Primary Dx) from Last 3 Months Immunizations Immunization Administration [...] housing situation today? I have paulinosandra kong 02/26/[address] you [...] 07/22/2025 10:15 AM EST Office Visit [facility] MED & PEDS [address] [place] [address] Killian Rodriguez MD [address] [place] [address] 10/17/2025 10:15 AM EST Office Visit [facility] ADULT DENTAL [address] [place] [address] Eddie Rodriguez Health Maintenance Due Date Last Done Comments CT Colonography 1955 Colonoscopy 1955 Dental X-Ray: Full Mouth 1955 FIT 1955 Sigmoidoscopy 1953 Alcohol/Substance Use Screening 1965 Hepatitis A Vaccines (1 of 2 - Risk 2-dose series) 1972 Pneumococcal Vaccine: 50+ Years (1 of 2 - PCV) 1972 RSV Patients and Patients Aged 60 years or older (1 - Risk 50-74 years 1-dose series) 2003 Hepatitis B Vaccines (1 of 3 - Risk 3-dose series) 2013 Zoster Vaccines (3 of 3) 02/14/2022 022, 12/20/2021, 03/09/2016 COVID-19 Vaccine ( - season) 2025 11/10/2020, 10/08/2020 Influenza Vaccine [...] Diagnosis Comments XR CHEST 2 VIEWS Routine 07/14/2025 1:56 PM EST VENOUS BLOOD GAS Routine 07/14/2025 1:24 PM EST 7 L RESIN-BASED COMPOSITE - 1 SURF, [...] ADULT Routine 04/15/2025 1 0:00 AM EDT LIPID PANEL, STANDARD Routine 04/11/2025 10:40 AM EDT Benign hypertension BI MAMMOGRAM SCREENING TOMOSYNTHESIS BILATERAL Routine 06/27/2024 3:41 PM EST LAB COLOGUARD COLON CANCER SCREEN Routine 06/12/2024 12:30 PM EDT Encounter for screening for malignant neoplasm of colon from Last 3 Months or Most Recently Relevant to Health Maintenance Results * XR Chest 2 Views (07/14/2025 1:56 PM EST) Anatomical Region Laterality Modality Chest Radiographic Roxana ging 07/14/2025 1:56 PM EST Narrative 07/14/2025 2:11 PM EST [address] [address] XRay Report Signed Patient: Juana Lopez MR#: [id number] 34 : 1955 Acct:[id number] Age/Sex: 69 / F ADM Date: 07/14/25 Loc: HO.ED Attending Dr: Ordering Physician: Myesha Omalley NP Date of Service: 07/14/25 Procedure(s): XR chest 2V Accession Number(s): [id number] cc: Myesha Omalley BROKERAGE MANAGER; Jose Huston NP Reason for Exam: dyspnea EXAMINATION: XR CHEST CLINICAL INFORMATION: dyspnea COMPARISON: 05/01/2025. CT chest 05/14/2025. TECHNIQUE: 2 views of the chest were obtained. FINDINGS: The cardiac, hilar, and mediastinal contours are normal. Lungs are diffusely hyperaerated with flattened hemidiaphragms, findings consistent with COPD. Lungs otherwise clear. There is no pneumothorax or pleural effusion. There is no focal osseous or soft tissue abnormality. There are degenerative changes of the spine. XR/XR chest 2V IMPRESSION: COPD. No active superimposed disease. Electronically signed by: Matt Denise MD 07/14/2025 02:08 PM EST Dictated By: Matt Denise MD Signed By: <Electronically signed by Matt Denise MD in OV> 07/14/25 1408 DD/ 1356 TD/TT: 07/14/25 1358 [employer] Painter And Grader: Procedure Note Donotuseinterpreter, Image - 07/14/2025 [place] [address] XRay Report Signed Patient: Fabian Lopez#: [id number] 34 : 1955cct:[id number] Age/Sex: 69 / FADM Date: 07/14/25 Loc: HO.ED Attending Dr: Ordering Physician: Myesha Omalley NP Date of Service: 07/14/25 Procedure(s): XR chest 2V Accession Number(s): [id number] cc: Myesha Omalley BROKERAGE MANAGER; Jose Huston NP Reason for Exam: dyspnea EXAMINATION: XR CHEST CLINICAL INFORMATION: dyspnea COMPARISON: 05/01/2025. CT chest 05/14/2025. TECHNIQUE: 2 views of the chest were obtained. FINDINGS: The cardiac, hilar, and mediastinal contours are normal. Lungs are diffusely hyperaerated with flattened hemidiaphragms, findings consistent with COPD. Lungs otherwise clear. There is no pneumothorax or pleural effusion. There is no focal osseous or soft tissue abnormality. There are degenerative changes of the spine. XR/XR chest 2V IMPRESSION: COPD. No active superimposed disease. Electronically signed by: Matt Denise MD 07/14/2025 02:08 PM EST Dictated By: Matt Denise MD Signed By: <Electronically signed by Matt Denise MD in OV> 07/14/25 1408 DD/ 1356 TD/TT: 07/14/25 1358 Cork Painter And Grader: [facility] External Provider IMG XR PROCEDURES Final Result * (ABNORMAL) VENOUS BLOOD GAS (07/14/2025 1:24 PM EST) VBG pH 7.47(H) 7.32 - 7.43 [facility] Comment:METER #: [id number] additional_comment: Cb snowma VBG PCO2 33 mmHg [facility] Comment:METER #: [id number] additional_comment: Cb snowma VBG PO2 41 mmHg [facility] Comment:METER #: [id number] additional_comment: Cb snowma VBG Base Excess 2.2 mmol/L [facility] Comment:METER #: [id number] additional_comment: Cb snowma VBG HCO3 25 22 - 26 mmol/L [facility] Comment:METER #: [id number] additional_comment: Cb snowma O2 Sat, David 74.0 % [facility] Comment:METER #: [id number] additional_comment: Cb snowma 07/14/2025 1:24 PM EST 07/14/2025 1:28 PM EST Generic External Data Provider LAB BLOOD ORDERAB LES Final Result [facility] [address] [place] [address] [phone] * (ABNORMAL) Lipid Panel, Standard (04/11/2025 10:40 AM EDT) Triglycerides 104 <150 mg/dL [facility] Comment:Desirable Triglyceri de: less than 150 mg/dLBorderline High Triglyceride 150-199 mg/dLHigh Triglyceride: 200-499 mg/dLVery High Triglyceride: greater than or equal to 5OO mg/dL Cholesterol 253(H) <200 mg/dL [facility] Comment:Desirable Cholestero l: less than 200 mg/dLBorderline High Cholesterol: 200-239 mg/dLHigh Cholesterol: greater than 239 mg/dL LDL Cholesterol Calculated 160(H) <100 mg/dL [facility] Comment:Desirable LDL: less than 100 mg/dLNear Optimal/Above Optimal LDL: 110- 129 mg/dLBorderline High LDL: 130-159 mg/dLHigh LDL: 160-189 mg/dLVery High LDL: greater than or equal to 190 mg/dL HDL Cholesterol 73 >40 mg/dL [facility] Comment:Desirable HDL: great er than 40 mg/dL Note: This HDL assay may give artificially low results in patients with liver disease. Blood Venous blood specimen / Unknown 04/11/2025 10:40 AM EDT 04/11/2025 11:52 AM EDT Anne Caballero MD LAB BLOOD ORDERABLES Final Resul t [facility] [address] [place] [address] [phone] * BI Mammogram Screening Tomosynthesis Bilateral (06/27/2024 3:41 PM EST) Anatomical Region Laterality Modality Breast Bilateral Mammography 06/27/2024 3:41 PM EST Narrative 07/05/2024 12:50 PM EST [facility] [address] [place] [address] Mammography Report Signed Patient: Juana Lopez MR#: [id number] 34 : 1955 Acct:[id number] Age/Sex: 68 / F ADM Date: 06/27/24 Loc: HO.MAMMO Attending Dr: Anne Caballero MD Ordering Physician: Anne Caballero MD Results: 1Negati ve Date of Service: 06/27/24 Follow Up: 1 Year From Orig inal Mammogram Procedure(s): MM tomosynthesis screening BI Accession Number(s): [id number] cc: Anne Caballero MD EXAMINATION: MM SCREENING [...] by: Celestina Tan DO 07/05/2024 12:47 PM [facility] Dictated By: Celestina Tan DO Signed By: <Electronically signed by Celestina Tan DO in OV> 07/05/24 1247 DD/ 1541 TD/TT: 06/27/24 1554 [employer] Painter [employer] Grader: Procedure Note Donotuseinterpreter, Image - 07/05/2024 [facility] [address] [place], [place] [address] Mammography Report Signed Patient: Fabian Lopez#: [id number] 34 : 1955cct:[id number] Age/Sex: 68 / FADM Date: 06/27/24 Loc: HO.MAMMO Attending Dr: Anne Caballero MD Ordering Physician: Anne Caballero MDResults: 1Negati ve Date of Service: 06/27/24Follow Up: 1 Year From Orig inal Mammogram Procedure(s): MM tomosynthesis screening BI Accession Number(s): [id number] cc: Anne Caballero MD EXAMINATION: MM SCREENING [...] 07/05/24 1247 DD/ 1541 TD/TT: 06/27/24 1554 [employer] Painter And Grader: Anne Caballero MD IM BI PROCEDURES Final Result * Cologuard?? colon cancer screening (06/12/2024 12:30 PM EDT) Cologuard Result Negative Negative 06/20/20 10:31 AM EST [facility] (CLIA #:[id number]) Comment: NEGATIVE TEST RESULT. A negative Cologuard [...] (Hugo Woodson al, N Engl J Med 2014;370(14):3865-4124) The normal value (reference range) for this assay is negative. COLOGUARD RE-SCREENING RECOMMENDATION: Periodic colorectal cancer screening is an important part of preventive healthcare for asymptomatic individuals at average risk for colorectal cancer. Following a negative Cologuard result, the [place] [employer] and U.S. Multi-Society Task Force screening guidelines recommend a Cologuard re-screening interval of 3 years. References: [place] [employer] Guideline for Colorectal Cancer Screening: https://www.cancer.org/cancer/dvtif-yzucga-suoxuq/xtwmlvyrh-yfzrqhvwk-oxhwqif/ac s-rec ommendations.html.; Brandon DK, Mark YE, Cathleen GerardK, Colorectal Cancer Screening: Recommendations for Physicians and Patients from the U.S. Multi-Society Task Force on Colorectal Cancer Screening , Am J Gastroenterology 2017; 112:2539-7317. TEST DESCRIPTION: Composite algorithmic analysis of stool [...] colonoscopy. (Hugo Bird, N Engl J Med 2014;370(14):3804-0869.) Cologuard may produce a false negative or false positive result (no colorectal cancer or precancerous polyp present at colonoscopy follow up). A negative Cologuard test result does not guarantee the absence of CRC or advanced adenoma (pre-cancer). The current Cologuard screening interval is every 3 years. ([place] [employer] and U.S. Multi-Society Task Force). Cologuard performance data in a 10,000 patient pivotal study using colonoscopy as the reference method can be accessed at the following location: www.[employer]/results. Additional description of the Cologuard test process, warnings and precautions can be found at www.cologuard.com. Stool specimen (specimen) 06/12/2024 12:30 PM EDT 06/14/2024 1:04 PM EDT Anne Caballero MD LAB MOLECULAR DIAGNOSTICS MAUDE SHERMAN Final Result [facility] (CLIA #:[id number]) [address] [place] [address], from Last 3 Months or Most Recently Relevant to Health Maintenance Insurance # [address] [place] [address] [facility] [employer]FP OPTIONS (O D-SNP) [place]ODRIGUEZ [id number] DENTAL - [facility] Care Teams Explosive Technician Relationship Specialty Start Date End Date Killian Rodriguez MD [address] [place] [address] PCP - General Internal Medicine 06/26/25
--- OUTSIDE RECORDS SUMMARY | 2025-07-14 16:57 | XMS_ITS | Encounter Summary ---
Author Organization [employer] Address [address] [facility] 7t [place] [address] Care Team Providers Care Sole Cementer Name Role Phone Anne Caballero MD Primary Care Provider [phone] Killian Rodriguez MD Primary Care Provider [phone] Reason for Visit * Reason Comments Med Refill Encounter Details Date Type Department Care Team ([facility] st Contact Info) Description 03/24/2025 Refill [facility] MEDICINE [address] [place] [address] Anne Caballero MD [address] [place], [place] [phone] Social History Tobacco Use Types Packs/Day Years [...] 07/22/2025 10:15 AM EST Office Visit [facility] MED & PEDS [address] [place] [address] Killian Rodriguez MD [address] [place] [address] 10/17/2025 10:15 AM EST Office Visit [facility] ADULT DENTAL [address] [place] [address] Eddie Rodriguez documented as of this encounter Visit Diagnoses Not on filedocumented in this encounter Additional Health Concerns Assessment Noted Time PHQ-9 Depression Total Score: 0 03/06/20 9:20 AM EDT documented as of this encounter Care Teams Sole Cementer Relationship Specialty Start Date End Date Anne Caballero MD [address] [place] [address] PCP - General Family Medicine 07/30/12 04/30/25 Killian Rodriguez MD [address] [place] [address] PCP - General Internal Medicine 06/26/25 documented as of this encounter
--- OUTSIDE RECORDS SUMMARY | 2025-07-14 16:58 | XMS_ITS | Encounter Summary ---
Author Organization [facility] Address [address] [place] [address] Phone Care Team Providers Care Tool And Die Repair Name Role Phone Anne Caballero MD Primary Care Provider [phone] Encounter Details Date Type Department Care Team (Late st Contact Info) Description 03/29/2022 Documentation Only [facility] [address] [place] [address] Priscila Collins MD Social History Tobacco [...] on filedocumented in this encounter Care Teams Tool And Die Repair Relationship Specialty Start Date End Date Anne Caballero MD [address] [place] [address] PCP - General Family Medicine 02/21/22 documented as of this encounter
--- OUTSIDE RECORDS SUMMARY | 2025-07-14 16:58 | XMS_ITS | Encounter Summary ---
Author Organization [employer] Address [address] [place] [address] 7t [place] [address] Care Team Providers Care Business Systems Technician Name Role Phone Anne Caballero MD Primary Care Provider [phone] Killian Rodriguez MD Primary Care Provider [phone] Encounter Details Date Type Department Care Team ([facility] Contact Info) Description 12/30/2022 Orders Only [facility] MED & PEDS [address] [place] [address] Shruti Piña LPN Social History Tobacco Use [...] [facility] Contact Info) Description 07/22/2025 10:15 AM EST Office Visit [facility] MED & PEDS [address] [place] [address] Killian Rodriguez MD [address] [place] [address] 10/17/2025 10:15 AM EST Office Visit [facility] ADULT DENTAL [address] [place] [address] Eddie Rodriguez documented as of this encounter Visit Diagnoses Not on filedocumented in this encounter Additional Health Concerns Assessment Noted Time PHQ-9 Depression Total Score: 4 10/21/19 23 9:37 AM EST documented as of this encounter Care Teams Business Systems Technician Relationship Specialty Start Date End Date Anne Caballero MD [address] [place] [address] PCP - General Family Medicine 07/30/12 04/30/25 Killian Rodriguez MD [address] [place] [address] PCP - General Internal Medicine 06/26/25 documented as of this encounter
--- OUTSIDE RECORDS SUMMARY | 2025-07-14 16:58 | XMS_ITS | Data Portability ---
Author Organization [employer] [facility], [facility] Address [address] [place] [address] Care Team Providers Care Memorial Counselor Name Role Phone HIM CCA OTHER [facility] Primary Care Provider [phone] Assessment Encounter Date Assessment Date Assessment LastModified by Organization Details LastModified Time 12/01/2024 12/01/2024 I have reviewed and agree with the assessment and plan as documented by the platen grinder. I provided real-time medical direction for this encounter and was immediately available to provide additional phone-based assistance as needed. History as noted in EMR and by platen grinder. I would add / emphasize: Pt w/ [...] azithromy ana 250 mg tablet 2024 025 [facility], [address] [place], [address], 17:02:06 azithromy ana 250 mg tablet 2024 025 [facility], [address] [place], [address], 5 17:02:04 prednison e 50 mg tablet 2024 025 [facility], [address] [place], [address], 5 17:02:06 prednison e 20 mg tablet 2024 025 [facility], [address] [place], [address], 5 17:02:04 ipratropi um 0.5 mg-albute rol 3 mg (2.5 mg base)/3 mL nebulizat ion soln 2024 025 [facility], [address] [place], [address], 5 17:02:04 Patient TargetsNo targets recorded. Patient [...] Vitals Date Recorded Respiratory rate Oxygen saturation Heart rate Body temperature Systolic And Diastolic Provider Name and Address Organization Details Last Updated DateTime 16 /min 91 % 90 /min 97.3 [degF] 149/88 [...] Diagnosis SNOMED-CT Code Diagnosis ICD10 Code Diagnosis IMO Codes Diagnosis Note [id number] Frank Clark MD Main - [facility]ED [address] [place] [id number] 12/01/2024 14:27:14 12/02/2024 14:48:33 Acute exacerbation of chronic obstructive pulmonary disease 504200725 J44.1 [id number] Health Concerns Section Related Observation LastModified by Organization Detai ls LastModified Time None Recorded Concern Status LastModified by Organization Details LastModified Time None Recorded Advance Directives Directive None Recorded Payers Insurance Date Sequence Insurance Name Policy Number Policy Lance Covered Member ID Lance Member ID Guarantor Name 12/01/2024 1 [facility] - DOS PRIOR TO 2022 - DUAL ELIGIBLE (MEDICARE REPLACEMENT/ADV ANTAGE - HMO) Juana Lopez [id number] Juana Lopez 12/01/2024 1 [facility] - DOS ON OR AFTER 2022 - DUAL ELIGIBLE - HALFWAY OPTIONS AND ONE CARE (MEDICARE REPLACEMENT/ADV ANTAGE - HMO) Juana Lopez [id number] Juana Lopez Notes Date Note Type Note [...] emergency treatment if needed. Rajani Bahena RN Carpenters Supervisor Organization Information for Sebastián Bueno [employer] Legal Name: [facility] Address: [address] [place] [address], Bank Sales And Service Manager: Harrison Nguyen MD CLIA No.: [id number] Carpenters Supervisor POC Test Results from Sebastián Bueno Rapid COVID antigen (14:30:01) COVID: - Rapid influenza antigen (14:30:02) Flu: - .................... .................... .................... .................... .................... .................... .................... . Carpenters Supervisor Note From MaciejzoniaSebastián: This 69-year-old female with [...] instructed her to follow up with her trim carpenter tomorrow and present to the emergency department for any new or worsening severe symptoms such as chest pain, severe shortness of breath, high fever, altered mental status. The patient was given the opportunity to ask questions and is agreeable to this plan. .................... .................... .................... .................... .................... .................... .................... . [facility] Consulted: Frank Clark .................... .................... .................... .................... .................... .................... .................... . Disposition: Fulfilled Frank Clark MD [address] [facility],[address], [place], [address], ELIE - [place] 12/01/2024 19:56:59 OBGyn Episode No OBEpisode recorded.
--- OUTSIDE RECORDS SUMMARY | 2025-07-14 16:58 | XMS_ITS | Encounter Summary ---
Author Organization [employer] Address [address] [facility] 7t [place] [address] Care Team Providers Care Machines Technician Name Role Phone Anne Caballero MD Primary Care Provider Killian Rodriguez MD Primary Care Provider [phone] Reason for Visit * Reason Onset Date Comments Hospital Follow-up 10/10/2023 Encounter Details Date Type Department Care Team ([facility] st Contact Info) Description 10/10/2023 Telephone [facility] MEDICINE [address] [place] [address] Anne Caballero MD [address] [place], [place] [phone] Hospital Follow-up Social History Tobacco Use Types [...] AM EST Tc from pt requesting a F appt. Hospital: [facility] Date of admission: 10/03/2023 Discharge date: 10/05/2023 Diagnosed: COPD documented in this encounter Plan of Treatment Upcoming Encounters Date Type Department Care Team (Late st Contact Info) Description 07/22/2025 10:15 AM EST Office Visit [facility] MED & PEDS [address] [place] [address] Killian Rodriguez MD [address] [place] [address] 10/17/2025 10:15 AM EST Office Visit [facility] ADULT DENTAL [address] [place] [address] Eddie Rodriguez documented as of this encounter Visit Diagnoses Not on filedocumented in this encounter Additional Health Concerns Assessment Noted Time PHQ-9 Depression Total Score: 4 10/21/19 23 9:37 AM EST documented as of this encounter Care Teams Machines Technician Relationship Specialty Start Date End Date Anne Caballero MD [address] [place] [address] PCP - General Family Medicine 07/30/12 04/30/25 Killian Rodriguez MD [address] [place] [address] ELIE Weeks [address] PCP - General Internal Medicine 06/26/25 documented as of this encounter
--- OUTSIDE RECORDS SUMMARY | 2025-07-14 16:58 | XMS_ITS | Encounter Summary ---
Author Organization [employer] Address [address] [facility] [address] 7[address] [place] [address] Care Team Providers Care Belly Dancer Name Role Phone Anne Caballero MD Primary Care Provider Killian Rodriguez MD Primary Care Provider [phone] Reason for Visit * Reason Onset Date Comments FYI 01/02/2024 Encounter Details Date Type Department Care Team (Late st Contact Info) Description 01/02/2024 Telephone [facility] MEDICINE [address] [place] [address] Anne Caballero MD [address] [place], [place] [phone] FYI Social History Tobacco Use Types Packs/Day [...] - 01/02/2024 1:19 PM EDT [facility] to inform PCP pt will be discharge today 01/01 from PT documented in this encounter Plan of Treatment Upcoming Encounters Date Type Department Care Team (Late st Contact Info) Description 07/22/2025 10:15 AM EST Office Visit [facility] MED & PEDS [address] [place] [address] Killian Rodriguez MD [address] [place] [address] 10/17/2025 10:15 AM EST Office Visit [facility] ADULT DENTAL [address] [place] [address] Eddie Rodriguez documented as of this encounter Visit Diagnoses Not on filedocumented in this encounter Additional Health Concerns Assessment Noted Time PHQ-9 Depression Total Score: 4 10/21/19 23 9:37 AM EST documented as of this encounter Care Teams Belly Dancer Relationship Specialty Start Date End Date Anne Caballero MD [address] [place] [address] PCP - General Family Medicine 07/30/12 04/30/25 Killian Rodriguez MD [address] [place] [address] PCP - General Internal Medicine 06/26/25 documented as of this encounter
--- OUTSIDE RECORDS SUMMARY | 2025-07-14 16:58 | XMS_ITS | Encounter Summary ---
Author Organization [employer] Address [address] [facility] [address] 7[address] [place] [address] Care Team Providers Care Lacquer Sizer Name Role Phone Killian Rodriguez MD Primary Care Provider [phone]- [phone] Encounter Details Date Type Department Care Team ([facility] st Contact Info) Description 07/14/2025 Orders Only GENERIC EXTERNAL DATA DEPARTMENT Provider, Generic External Data Social History Tobacco Use Types Packs/Day Years [...] [facility] MED & PED[facility] [address] [place] [address] Killian Rodriguez MD [address] [place], [place] [phone] 10/17/2025 10:15 AM EST Office Visit [facility] ADULT DENTAL [address] [place] [address] Eddie Rodriguez documented as of this encounter Procedures Procedure Name Priority Date/Time Associated Diagnosis Comments XR CHEST 2 VIEWS Routine 07/14/2025 1:56 PM EST VENOUS BLOOD GAS Routine 07/14/2025 1:24 PM EST documented in this encounter Results * XR Chest 2 Views (07/14/2025 1:56 PM EST) Anatomical Region Laterality Modality Chest Radiographic Roxana ging 07/14/2025 1:56 PM EST Narrative 07/14/2025 2:11 PM EST [address] [address] XRay Report Signed Patient: Juana Lopez MR#: [id number] 34 : 1955 Acct:[id number] Age/Sex: 69 / F ADM Date: 07/14/25 Loc: HO.ED Attending Dr: Ordering Physician: Myesha Omalley NP Date of Service: 07/14/25 Procedure(s): XR chest 2V Accession Number(s): [id number] cc: Myesha Omalley SUPERVISOR THROWING DEPARTMENT; Jose Huston NP Reason for Exam: dyspnea [...] by: Matt Denise MD 07/14/2025 02:08 PM [facility] Dictated By: Matt Denise MD Signed By: <Electronically signed by Matt Denise MD in OV> 07/14/25 1408 DD/ 1356 TD/TT: 07/14/25 1358 Coin Rolling Machine Operator: Procedure Note Donotuseinterpreter, Image - 07/14/[address] [address] XRay Report Signed Patient: Fabian Lopez#: [id number] [birth year] : 1955cct:[id number] Age/Sex: 69 / FADM Date: 07/14/25 Loc: .ED Attending Dr: Ordering Physician: Myesha Omalley NP Date of Service: 07/14/25 Procedure(s): XR chest 2V Accession Number(s): [id number] cc: Myesha Omalley NP; Jose Huston NP Reason for Exam: dyspnea [...] 07/14/25 1408 DD/ 1356 TD/TT: 07/14/25 1358 Coin Rolling Machine Operator: [facility] External Provider IMG XR PROCEDURES Final Result * (ABNORMAL) VENOUS BLOOD GAS (07/14/2025 1:24 PM EST) VBG pH 7.47(H) 7.32 - 7.43 [facility] Comment:METER #: [id number] additional_comment: Cb snowma VBG PCO2 33 mmHg [facility] Comment:METER #: [id number] additional_comment: Cb snowma VBG PO2 41 mmHg [facility] Comment:METER #: [id number] additional_comment: Cb snowma VBG Base Excess 2.2 mmol/L [facility] Comment:METER #: [id number] additional_comment: Cb snowma VBG HCO3 25 22 - 26 mmol/L [facility] Comment:METER #: [id number] additional_comment: Cb snowma O2 Sat, David 74.0 % [facility] Comment:METER #: [id number] additional_comment: Cb snowma 07/14/2025 1:24 PM EST 07/14/2025 1:28 PM EST Generic External Data Provider LAB BLOOD ORDERAB LES Final Result [facility] [address] [place] [phone] documented in this encounter Visit Diagnoses Not on filedocumented in this encounter Additional Health Concerns Assessment Noted Time PHQ-9 Depression Total Score: 0 03/06/20 9:20 AM EDT documented as of this encounter Care Teams Lacquer Sizer Relationship Specialty Start Date End Date Killian Rodriguez MD [address] [place] [address] PCP - General Internal Medicine 06/26/25 documented as of this encounter
--- OUTSIDE RECORDS SUMMARY | 2025-07-14 16:58 | XMS_ITS | Encounter Summary ---
Author Organization [employer] Address [address] [facility] 7t [place] [address] Care Team Providers Care Welding Equipment Repairer Name Role Phone Anne Caballero MD Primary Care Provider [phone] Killian Rodriguez MD Primary Care Provider [phone]- [phone] Encounter Details Date Type Department Care Team ([facility] st Contact Info) Description 01/27/2023 Abstract [facility]C MED & PEDS [address] [place] [address] Anne Caballero MD [address] [place] [address] Social History Tobacco Use Types Packs/Day Years [...] EST Office Visit [facility] [address] [place] [address] Killian Rodriguez MD [address] [place] [address] 10/17/2025 10:15 AM EST Office Visit [facility] ADULT DENTAL [address] [place] [address] Eddie Rodriguez documented as of this encounter Visit Diagnoses Not on filedocumented in this encounter Additional Health Concerns Assessment Noted Time PHQ-9 Depression Total Score: 4 10/21/19 23 9:37 AM EST documented as of this encounter Care Teams Welding Equipment Repairer Relationship Specialty Start Date End Date Anne Caballero MD [address] [place] [address] PCP - General Family Medicine 07/30/12 04/30/25 Killian Rodriguez MD [address] [place] [address] PCP - General Internal Medicine 06/26/25 documented as of this encounter
--- OUTSIDE RECORDS SUMMARY | 2025-07-14 16:58 | XMS_ITS | Encounter Summary ---
Author Organization [employer] Address [address] [facility] 7t [place] [address] Care Team Providers Care Size Tester Name Role Phone Anne Caballero MD Primary Care Provider [phone] Killian Rodriguez MD Primary Care Provider [phone] Reason for Visit * Reason Onset Date Comments Med Refill 10/20/2023 Encounter Details Date Type Department Care Team ([facility] st Contact Info) Description 10/20/2023 Refill [facility] CH[facility] MED & PEDS [address] [place], [place] [phone] Killian Rodriguez MD [address] [place], [place] [phone] Chronic obstructive pulmonary disease, unspecified COPD type [...] Description 07/22/2025 10:15 AM EST Office Visit [facility] MED & PEDS [address] [place] [address] Killian Rodriguez MD [address] [place] [address] 10/17/2025 10:15 AM EST Office Visit [facility] ADULT DENTAL [address] [place] [address] Eddie Rodriguez documented as of this encounter Visit Diagnoses Diagnosis Chronic obstructive pulmonary disease, unspecified COPD type (CMS/HCC) ([facility]) documented in this encounter Additional Health Concerns Assessment Noted Time PHQ-9 Depression Total Score: 4 10/21/19 23 9:37 AM EST documented as of this encounter Care Teams Size Tester Relationship Specialty Start Date End Date Anne Caballero MD [address] [place] [address] PCP - General Family Medicine 07/30/12 04/30/25 Killian Rodriguez MD [address] [place] [address] PCP - General Internal Medicine 06/26/25 documented as of this encounter
--- OUTSIDE RECORDS SUMMARY | 2025-07-14 16:58 | XMS_ITS | Encounter Summary ---
Author Organization [employer] Address [address] [place] [address] 7t [place] [address] Care Team Providers Care Consulting Sme Name Role Phone Anne Caballero MD Primary Care Provider [phone] Killian Rodriguez MD Primary Care Provider [phone] Reason for Visit * Reason Onset Date Comments Results 01/27/2023 Encounter Details Date Type Department Care Team ([facility] Contact Info) Description 01/27/2023 Telephone [facility] MED & PEDS [address] [place] [address] Anne Caballero MD [address] [place] [address] Results Social History Tobacco Use Types Packs/Day [...] Description 07/22/2025 10:15 AM EST Office Visit [facility] MED & PEDS [address] [place] [address] Killian Rodriguez MD [address] [place] [address] 10/17/2025 10:15 AM EST Office Visit [facility] ADULT DENTAL [address] [place] [address] Eddie Rodriguez documented as of this encounter Visit Diagnoses Not on filedocumented in this encounter Additional Health Concerns Assessment Noted Time PHQ-9 Depression Total Score: 4 10/21/19 23 9:37 AM EST documented as of this encounter Care Teams Consulting Sme Relationship Specialty Start Date End Date Anne Caballero MD [address] [place] [address] PCP - General Family Medicine 07/30/12 04/30/25 Killian Rodriguez MD [address] [place] [address] PCP - General Internal Medicine 06/26/25 documented as of this encounter
--- OUTSIDE RECORDS SUMMARY | 2025-07-14 16:58 | XMS_ITS | Encounter Summary ---
Author Organization [employer] Address [address] [place] [address] 7t [place] [address] Care Team Providers Care Composition Worker Name Role Phone Anne Caballero MD Primary Care Provider [phone] Killian Rodriguez MD Primary Care Provider [phone] Reason for Visit * Reason Comments Med Refill Encounter Details Date Type Department Care Team ([facility] st Contact Info) Description 01/30/2023 Refill [facility] CHC MED & PEDS [address] [place], [place] [phone] Anne Caballero MD [address] [place] [address] Social History Tobacco Use Types Packs/Day Years [...] [facility] MED & PEDS [address] [place] [address] Killian Rodriguez MD [address] [place] [address] 10/17/2025 10:15 AM EST Office Visit [facility] ADULT DENTAL [address] [place] [address] Eddie Rodriguez documented as of this encounter Visit Diagnoses Not on filedocumented in this encounter Additional Health Concerns Assessment Noted Time PHQ-9 Depression Total Score: 4 10/21/19 23 9:37 AM EST documented as of this encounter Care Teams Composition Worker Relationship Specialty Start Date End Date Anne Caballero MD [address] [place] [address] PCP - General Family Medicine 07/30/12 04/30/25 Killian Rodriguez MD [address] [place] [address] PCP - General Internal Medicine 06/26/25 documented as of this encounter
--- OUTSIDE RECORDS SUMMARY | 2025-07-14 16:58 | XMS_ITS | Encounter Summary ---
Author Organization [employer] Address [address] [facility] [address] 7t [place] [address] Care Team Providers Care Route Deliverer Name Role Phone Anne Caballero MD Primary Care Provider [phone] Killian Rodriguez MD Primary Care Provider [phone] Reason for Visit * Reason Onset Date Comments FYI 12/11/2023 Encounter Details Date Type Department Care Team (Late st Contact Info) Description 12/11/2023 Telephone [facility] MEDICINE [address] [place] [address] Anne Caballero MD [address] [place], [place] [phone] FYI Social History Tobacco Use Types Packs/Day [...] 3:26 PM EDT Tc constantino Pizano at [facility] calling to inform the Provider the patient was discharged from [facility] on 11/28 documented in this encounter Plan of Treatment Upcoming Encounters Date Type Department Care Team ([facility] st Contact Info) Description 07/22/2025 10:15 AM EST Office Visit [facility] MED & PEDS [address] [place] [address] Killian Rodriguez MD [address] [place] [address] 10/17/2025 10:15 AM EST Office Visit [facility] ADULT DENTAL [address] [place] [address] Eddie Rodriguez documented as of this encounter Visit Diagnoses Not on filedocumented in this encounter Additional Health Concerns Assessment Noted Time PHQ-9 Depression Total Score: 4 10/21/19 23 9:37 AM EST documented as of this encounter Care Teams Route Deliverer Relationship Specialty Start Date End Date Anne Caballero MD [address] [place] [address] PCP - General Family Medicine 07/30/12 04/30/25 Killian Rodriguez MD [address] [place] [address] PCP - General Internal Medicine 06/26/25 documented as of this encounter
--- OUTSIDE RECORDS SUMMARY | 2025-07-14 16:58 | XMS_ITS | Clinical Summary ---
Author Organization [facility] Address [address] [facility] [address] [place] [address] Phone Care Team Providers Care Rn Bariatric Name Role Phone Anne Caballero MD Primary Care Provider [phone] Allergies No known active allergies Medications amitriptyline [...] Last Done Comments Breast Cancer Screening 1955 Colorectal Cancer Screening: Annual FOBT 2002 Colorectal Cancer Screening: Colonoscopy 2002 Colorectal Cancer Screening: Sigmoidoscopy 2002 Pneumococcal Vaccine: 50+ Years (1 of 1 - PCV) 2003 Influenza Vaccine (#1) 2025 0, 07/06/2018, 08/22/2017, Additional history exists Hepatitis B Vaccine Aged Out No longe r eligible based on patient's age to complete this topic Insurance [id number] One Care Dual SNP ([id number]) [facility] One Care Dual SNP ([id number]) Care Teams Rn Bariatric Relationship Specialty Start Date End Date Anne Caballero MD [address] [place] [address] PCP - General Family Medicine 02/21/22
--- OUTSIDE RECORDS SUMMARY | 2025-07-14 16:58 | XMS_ITS | Encounter Summary ---
Author Organization [employer] Address [address] [facility] 7t [place] [address] Care Team Providers Care Income Tax Advisor Name Role Phone Killian Rodriguez MD Primary Care Provider [phone] Reason for Visit * Reason Comments Pre-visit Planning SDOH was already com pleted Encounter Details Date Type Department Care Team ([facility] Contact Info) Description 07/14/2025 Patient Outreach [facility]C MED & PEDS [address] [place] [address] Killian Rodriguez MD [address] [place] [address] Pre-visit Planning (SDOH was already completed ) Social History Tobacco Use Types Packs/Day Years [...] as of this encounter Progress Notes * Jackeline Bailey - 07/14/2025 3:13 PM EST CC Jackeline Hunter placed successful outbound call to patient for pre-visit planning. Patient name and confirmed. Patient confirms appt date and time, and has transportation arrangements. Biggest concern for appointment at this time is no concerns. Appropriate screenings completed in anticipation ofappointment. documented in this encounter Plan of Treatment Upcoming Encounters Date Type Department Care Team (Late st Contact Info) Description 07/22/2025 10:15 AM EST Office Visit [facility] MED & PEDS [address] [place] [address] Killian Rodriguez MD [address] [place] [address] 10/17/2025 10:15 AM EST Office Visit [facility] ADULT DENTAL [address] [place] [address] Eddie Rodriguez documented as of this encounter Visit Diagnoses Not on filedocumented in this encounter Additional Health Concerns Assessment Noted Time PHQ-9 Depression Total Score: 0 03/06/20 9:20 AM EDT documented as of this encounter Care Teams Income Tax Advisor Relationship Specialty Start Date End Date Killian Rodriguez MD [address] [place] [address] PCP - General Internal Medicine 06/26/25 documented as of this encounter
--- NOTE | 2025-07-14 17:29 | PM.IMHP ---
History of Present Illness Date of Service: 07/14/25 Chief Complaint: sob 69 year old women with hx of COPD presenting with increased shortness of breath and wheezing. She smokes 5-6 cigarettes a day. She had been using her inhalers with no relief. She denied fever, chills, nausea, vomiting, diarrhea. CXR without pneumonia. She was given IV solumedol, duonebs, rocephin and IV magnesium. She will be admitted for further management of COPD exacerabation. Review of Systems Review of Systems: Denies any recent fever chills or decrease in appetite pulm See HPI cardiovascular Denied chest pain gastrointestinal denies any dysphagia abdominal pain nausea vomiting or diarrhea genitourinary denies any dysuria frequency or hematuria musculoskeletal denies any joint pain or swelling neuropsych denies any weakness or seizures all other systems reviewed are negative [facility] Medical History Multiple pulmonary nodules Asthma Hypertension COPD (chronic obstructive pulmonary disease) Family History Mother Breast CA Surgical History H/O total hysterectomy Hx of colonoscopy (~05/2019) History of tubal ligation Social History Household Members: None Household Members Other:: goes to significant other house 3x a week Housing: House Housing Other:: second floor Do you presently have visiting nurse or other home services: Yes ([employer]) Alcohol intake: current Alcohol intake frequency: does not drink Patient Tobacco Use Status: Current everyday Tobacco user Tobacco use type: Cigarette Cigarette Packs Per Day: 0.25 Cigarettes Per Day: 3 Smoked in Last 30 Days: Yes e-Cigarette/Vaping Use: Never Used Second Hand Smoke Exposure: No Substance Use Type: Marijuana Advance Directives: Yes Advance Directives on File: Yes Advance Directives Date on File: 05/02/25 Do you have a plan to hurt others: No Plan service: No Current occupational status: retired Meds Allergies Allergy/AdvReac Type Severity Reaction Status Date / Time No Known Allergies (No Known Allergy Verified 07/14/25 12:30 Allergies*) Home Medications ?Medication ?Instructions ?Recorded ?Confirmed ?Last Taken ?Type simvastatin 10 mg tablet 10 mg PO BEDTIME 01/28/21 05/02/25 07/16/24 History albuterol sulfate 90 mcg/actuation 2 puff PO Q4H PRN Shortness Of 02/03/22 05/02/25 07/20/23 History aerosol inhaler Breath Or Wheezing amlodipine 5 mg tablet 5 mg PO DAILY 02/03/22 05/02/25 07/17/24 History cholecalciferol (vitamin D3) 25 25 mcg PO DAILY 07/21/23 05/02/25 07/17/24 History mcg (1,000 unit) capsule (Vitamin D3) cetirizine 10 mg tablet 10 mg PO DAILY PRN ALLERGIES 07/17/24 05/02/25 07/17/24 History nicotine 21 mg/24 hr daily 21 mg transdermal DAILY PRN 07/17/24 05/02/25 Unknown History transdermal patch Smoking Cessation buspirone 5 mg tablet 5 mg PO BID 05/02/25 05/02/25 Unknown History celecoxib 200 mg capsule 200 mg PO DAILY PRN Pain (Scale 05/02/25 05/02/25 Unknown History Score 4-6) clonazepam 0.5 mg tablet 0.25 mg PO DAILY PRN Anxiety 05/02/25 05/02/25 Unknown History tizanidine 2 mg tablet 2 mg PO Q6H PRN Muscle Spasm 05/02/25 05/02/25 Unknown History Physical Exam Vital Signs and Narrative: Vital Signs: Last Vital Signs Temp 97.1 F 07/14/25 13:59 Pulse 86 07/14/25 15:05 Resp 20 07/14/25 15:05 BP 123/88 07/14/25 15:05 Pulse Ox 94 07/14/25 15:05 O2 Del Method Nasal Cannula 07/14/25 15:05 O2 Flow Rate 1 07/14/25 15:05 Oxygen Flow Rate 1 07/14/25 14:57 BMI result Body Mass Index 19.4 Appearing in no acute distress head is normocephalic atraumatic eyes pupils are PERRLA sclera is anicteric mouth throat mucous membranes are intact and moist neck is supple no lymphadenopathy, no JVD noted lung sounds are clear to auscultation heart regular rate rhythm, clear S1, S2 positive bowel sounds, abdomen is soft, nontender neuro patient is alert x3, no focal deficits Results Labs 07/14/25 13:15 07/14/25 15:36 Labs: Laboratory Results - last 24 hr 07/14/25 07/14/25 07/14/25 13:15 13:24 15:36 MCV 92.3 MCH 31.2 MCHC 33.8 RDW 13.0 Plt Count 221 MPV 8.5 L Immature Gran % (Auto) 0.2 Neut % (Auto) 63.4 Lymph % (Auto) 19.0 L [place] % (Auto) 11.1 H Eos % (Auto) 5.4 H Baso % (Auto) 0.9 Lymph # (Auto) 1.1 L [place] # (Auto) 0.6 Eos # (Auto) 0.3 Baso # (Auto) 0.1 Abs Immat Gran (auto) 0.01 Absolute Neuts (auto) 3.6 Absolute Nucleated RBC 0.000 Nucleated RBC % (auto) 0.0 PT 12.2 INR 1.0 D-Dimer High Sensitivty < 150 VBG pH 7.47 H VBG pCO2 33 VBG pO2 41 VBG HCO3 25 VBG O2 Saturation 74.0 VBG Base Excess 2.2 Anion Gap 10 L Estim Creat Clear Calc 46.2 Estimated GFR 57 Random Glucose 102 Lactic Acid Calcium 9.4 Total Bilirubin 0.6 AST 20 ALT 8 Alkaline Phosphatase 62 Troponin I High Sens < 2.7 Total Protein 6.1 L Albumin 3.8 Influenza Type A (PCR) NEGATIVE Influenza Type B (PCR) NEGATIVE RSV RNA Qual (PCR) NEGATIVE SARS-CoV-2 RNA (RT-PCR) NEGATIVE 07/14/25 16:56 MCV MCH MCHC RDW Plt Count MPV Immature Gran % (Auto) Neut % (Auto) Lymph % (Auto) [place] % (Auto) Eos % (Auto) Baso % (Auto) Lymph # (Auto) [place] # (Auto) Eos # (Auto) Baso # (Auto) Abs Immat Gran (auto) Absolute Neuts (auto) Absolute Nucleated RBC Nucleated RBC % (auto) PT INR D-Dimer High Sensitivty VBG pH VBG pCO2 VBG pO2 VBG HCO3 VBG O2 Saturation VBG Base Excess Anion Gap Estim Creat Clear Calc Estimated GFR Random Glucose Lactic Acid 1.1 Calcium Total Bilirubin AST ALT Alkaline Phosphatase Troponin I High Sens Total Protein Albumin Influenza Type A (PCR) Influenza Type B (PCR) RSV RNA Qual (PCR) SARS-CoV-2 RNA (RT-PCR) Imaging Radiologist's Impressions: Impressions Chest X-Ray 07/14/25 13:56 IMPRESSION: COPD. No active superimposed disease. Electronically signed by: Matt Denise MD 07/14/2025 02:08 PM [facility] Assessment and Plan (1) Nicotine dependence, cigarettes, uncomplicated: Status: Acute Plan 69 year old women admitted with acute COPD exacerabation Acute hypoxic respiratory failure secondary to COPD exacerbation IV solumedrol scheduled duonebs supplemental oxygen to keep oxygen sat >90% get baseline VBG Smoker Smokes 5-6 cigarettes a day NRT HTN stable blood pressure continue home medications Mental health continue home medications HLD statin DVT prophylaxis with Lovenox Full code Quality Stroke Does the patient have a stroke diagnosis?: No VTE Prior VTE?: No VTE Risk Level:: Medical - moderate - high VTE Device Contraindication: Treatment Not Indicated VTE Drug Contraindication: N/A - Med Ordered
[2025-07-14 17:43] LABS: Magnesium 2.0 mg/dL (1.6-2.6)
[2025-07-14 18:10] LABS: Venous Blood Gas Refer to POC result
[2025-07-14 18:11] LABS: VBG HCO3 24 mmol/L (22-26); VBG O2 % Saturation 89.0 %
[2025-07-14] MEDS: Albuterol/Iprat 2.5/0.5MG 3 ML AMPUL.NEB INHALE (19:10)
--- NOTE | 2025-07-14 19:32 | PC.NURSE ---
this RN assumed care of this pt @1900, pt noted to be sitting up in bed, medicated per MAR, receiving breathing treatment, no apparent distress noted, call root within reach for safety
--- NOTE | 2025-07-14 20:28 | PHA.MEDREC ---
Pharmacy Consult ? Medication Reconciliation Pharmacy has completed the medication reconciliation.Med rec complete, spoke to patient and compared with pharmacy claims history
--- NOTE | 2025-07-14 21:20 | PC.NURSE ---
pt requesting Tylenol for headache at this time
--- NOTE | 2025-07-14 21:25 | PC.NURSE ---
pt medicated per OCT, pain rate 8/10, pt specifically requesting Tylenol for her headache
[2025-07-15] VITALS (7 sets, daily range): BP systolic 147–159; BP diastolic 81; PULSE 73–89; RESP 15–18; TEMP 36.5; O2SAT 92–98; BMI 21.0
[2025-07-15 04:10] LABS: Hematocrit 42.0 % (37.0-47.0); Hemoglobin 14.1 g/dl (12.0-16.0); Mean Corpuscular HGB Conc 33.6 g/dl (31.0-35.0); Mean Corpuscular Hemoglobin 30.9 pg (27.0-33.0); Mean Corpuscular Volume 91.9 fL (80.0-98.0); NRBC Abs Auto 0.000 X10*3/uL (0.0-0.012); NRBC Pct Auto 0.0 /100WBC (0.0-0.2); Platelet Count 221 X10*3/uL (160-400); Red Blood Count 4.57 X10*6/uL (4.20-5.50); White Blood Count 3.1 X10*3/uL (4.8-10.8)
[2025-07-15 04:27] LABS: Anion Gap 13 (12-20); Blood Urea Nitrogen 23 mg/dL (9-16); Calcium 9.7 mg/dL (8.4-10.2); Carbon Dioxide 24 mmol/L (22-29); Chloride 106 mmol/L (96-108); Creatinine Clr Calc Pharmacy 33.8; Estimated Glomerular Filt Rate 40; Potassium 4.0 mmol/L (3.3-5.1); Sodium 139 mmol/L (135-145)
--- NOTE | 2025-07-15 06:14 | HO.NURTONUR ---
Chief Complaint: sob 69 year old women, full code, NKA, low sodium diet, with hx of COPD presenting with increased shortness of breath and wheezing. She smokes 5-6 cigarettes a day. She had been using her inhalers with no relief. She denied fever, chills, nausea, vomiting, diarrhea. CXR without pneumonia. She was given IV solumedol, duonebs, rocephin and IV magnesium. She will be admitted for further management of COPD exacerabation. Imaging: CXr showed: COPD. No active superimposed disease. EKG neg Plan: Acute hypoxic respiratory failure secondary to COPD exacerbation IV solumedrol scheduled duonebs supplemental oxygen to keep oxygen sat >90% Access: 20g IV to the left wrist nothing running
--- NOTE | 2025-07-15 09:45 | P.DS_ITS ---
DS: Providers Provider Date of Service: 07/15/25 Date of admission: 07/14/25 17:27 Date of discharge: 07/15/25 Primary care physician: Jose Huston NP DS: Diagnosis Discharge Diagnosis (1) Nicotine dependence, cigarettes, uncomplicated: Status: Acute DS: Summary Hospital Course Hospital Course: History and physical as per admitting provider. 69 year old women with hx of COPD presenting with increased shortness of breath and wheezing. She smokes 5-6 cigarettes a day. She had been using her inhalers with no relief. She denied fever, chills, nausea, vomiting, diarrhea. CXR without pneumonia. She was given IV solumedol, duonebs, rocephin and IV magnesium. She will be admitted for further management of COPD exacerabation. 69-year-old woman treated for acute hypoxic respiratory failure secondary to COPD exacerbation. Treated with IV Solu-Medrol, scheduled DuoNebs and oxygen. The patient is now on room air. Plan for short prednisone taper. Smoker. Discussed the importance of smoking cessation. Offered nicotine replacement while inpatient Hypertension. Stable blood pressures during hospitalization. Continue home medications Mental health. Continue home medications Hyperlipidemia. Continue statin Time Attestation Discharge Coordination Time (in mins): 40 Quality: Safe Use of Opioids Does Pt have an Active Cancer Diagnosis on the Problem List?: No Quality: Stroke Does the patient have a stroke diagnosis?: No Physical Exam Exam: Exam: Appearing in no acute distress head is normocephalic atraumatic eyes pupils are PERRLA sclera is anicteric mouth throat mucous membranes are intact and moist neck is supple no lymphadenopathy, no JVD noted lung sounds are clear to auscultation heart regular rate rhythm, clear S1, S2 positive bowel sounds, abdomen is soft, nontender neuro patient is alert x3, no focal deficits Vital Signs: Vital Signs: Last Vital Signs Temp 97.7 F 07/15/25 09:42 Pulse 76 07/15/25 09:42 Resp 18 07/15/25 09:42 BP 147/81 H 07/15/25 09:42 Pulse Ox 93 07/15/25 09:42 O2 Del Method Room Air 07/15/25 09:42 O2 Flow Rate 2 07/15/25 04:00 Oxygen Flow Rate 1 07/14/25 14:57 BMI result Body Mass Index 21.0 DS: Data Data Completed and Pending Labs on day of discharge: Laboratory Results - last 24 hr 07/14/25 07/14/25 07/14/25 13:15 13:24 15:36 WBC 5.6 RBC 5.06 Hgb 15.8 Hct 46.7 MCV 92.3 MCH 31.2 MCHC 33.8 RDW 13.0 Plt Count 221 MPV 8.5 L Immature Gran % (Auto) 0.2 Neut % (Auto) 63.4 Lymph % (Auto) 19.0 L [place] % (Auto) 11.1 H Eos % (Auto) 5.4 H Baso % (Auto) 0.9 Lymph # (Auto) 1.1 L [place] # (Auto) 0.6 Eos # (Auto) 0.3 Baso # (Auto) 0.1 Abs Immat Gran (auto) 0.01 Absolute Neuts (auto) 3.6 Absolute Nucleated RBC 0.000 Nucleated RBC % (auto) 0.0 PT 12.2 INR 1.0 D-Dimer High Sensitivty < 150 VBG pH 7.47 H VBG pCO2 33 VBG pO2 41 VBG HCO3 25 VBG O2 Saturation 74.0 VBG Base Excess 2.2 Sodium 140 Potassium 3.7 Chloride 106 Carbon Dioxide 28 Anion Gap 10 L BUN 17 H Creatinine 0.96 Estim Creat Clear Calc 46.2 Estimated GFR 57 Random Glucose 102 Lactic Acid Calcium 9.4 Magnesium 2.0 Total Bilirubin 0.6 AST 20 ALT 8 Alkaline Phosphatase 62 Troponin I High Sens < 2.7 Total Protein 6.1 L Albumin 3.8 Influenza Type A (PCR) NEGATIVE Influenza Type B (PCR) NEGATIVE RSV RNA Qual (PCR) NEGATIVE SARS-CoV-2 RNA (RT-PCR) NEGATIVE 07/14/25 07/14/25 07/15/25 16:56 18:06 03:30 WBC 3.1 L RBC 4.57 Hgb 14.1 Hct 42.0 MCV 91.9 MCH 30.9 MCHC 33.6 RDW 12.8 Plt Count 221 MPV 9.1 L Immature Gran % (Auto) Neut % (Auto) Lymph % (Auto) [place] % (Auto) Eos % (Auto) Baso % (Auto) Lymph # (Auto) [place] # (Auto) Eos # (Auto) Baso # (Auto) Abs Immat Gran (auto) Absolute Neuts (auto) Absolute Nucleated RBC 0.000 Nucleated RBC % (auto) 0.0 PT INR D-Dimer High Sensitivty VBG pH 7.41 VBG pCO2 38 VBG pO2 61 VBG HCO3 24 VBG O2 Saturation 89.0 VBG Base Excess 0.2 Sodium 139 Potassium 4.0 Chloride 106 Carbon Dioxide 24 Anion Gap 13 BUN 23 H Creatinine 1.31 Estim Creat Clear Calc 33.8 Estimated GFR 40 Random Glucose 176 H Lactic Acid 1.1 Calcium 9.7 Magnesium Total Bilirubin AST ALT Alkaline Phosphatase Troponin I High Sens Total Protein Albumin Influenza Type A (PCR) Influenza Type B (PCR) RSV RNA Qual (PCR) SARS-CoV-2 RNA (RT-PCR) Discharge Plan Discharge Anticipated Discharge Date/Time: 07/15/25 11:32 Patient Disposition: Home, Self-Care Discharge Diagnosis: Acute hypoxic respiratory failure secondary to COPD exacerbation Referrals: Jose Huston, PHYSIC[employer] MANAGER [Primary Care Provider, Primary Care] - 1 Week Discharge Medications: New prednisone 20 mg tablet 40 mg PO DAILY Qty: 8 0RF Continued clonazepam 0.5 mg Tablet 0.25 mg PO DAILY PRN (Reason: Anxiety) tizanidine 2 mg Tablet 2 mg PO Q6H PRN (Reason: Muscle Spasm) celecoxib 200 mg Capsule 200 mg PO DAILY clonazepam 0.5 mg Tablet 0.25 mg PO DAILY PRN (Reason: Anxiety) cholecalciferol (vitamin D3) [Vitamin D3] 25 mcg (1,000 unit) capsule 25 mcg PO DAILY cetirizine 10 mg tablet 10 mg PO DAILY PRN (Reason: ALLERGIES) nicotine 21 mg/24 hr patch 24 hour 21 mg transdermal DAILY PRN (Reason: Smoking Cessation) simvastatin 10 mg tablet 10 mg PO BEDTIME amlodipine 5 mg tablet 5 mg PO DAILY albuterol sulfate 90 mcg/actuation HFA aerosol inhaler 2 puff PO Q4H PRN (Reason: Shortness Of Breath Or Wheezing) Trelegy Ellipta 200-62.5-25 mcg blister with device 1 inh inhalation DAILY Qty: 60 6RF ipratropium-albuterol 0.5 mg-3 mg(2.5 mg base)/3 mL solution for nebulization 3 ml inhalation Q6H PRN (Reason: wheezing) Qty: 180 6RF Discharge Orders: Discharge Order (Routine); Ordered 07/15/25 Ordered By: Cindy Rodríguez Diet: Advance to usual diet Activity on Discharge: As tolerated Stand Alone Forms: Patient Portal Discharge page Print Language: Maltese Care Plan Goals: Complete steroid taper Health Concerns: Acute hypoxic respiratory failure secondary to COPD exacerbation Plan of Treatment: Follow up with primary care provider as needed Take all medications as prescribed Assessment: See discharge summary
[2025-07-15] MEDS: 0.9 % Sodium Chloride Flush 3 ML SYRINGE IVFLUSH ×2 (09:46)
--- NOTE | 2025-07-15 11:44 | MHC.CM.PN ---
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
[2025-07-15] MEDS: Albuterol/Iprat 2.5/0.5MG 3 ML AMPUL.NEB INHALE (11:53)
--- NOTE | 2025-07-15 12:14 | MHC.CM.PN ---
PT DCD HOME SELF CARE
[2025-07-15 14:09] LABS: Chlamydia pneumoniae PCR Not Detected (Not Detect.); Coronavirus 229E PCR Not Detected (Not Detect.); Coronavirus HKU1 PCR Not Detected (Not Detect.); Coronavirus NL63 PCR Not Detected (Not Detect.); Coronavirus OC43 PCR Not Detected (Not Detect.); RSV PCR Not Detected (Not Detect.); Rhino/Enterovirus PCR Not Detected (Not Detect.)
[2025-07-15 14:13] LABS: Influenza A H1 PCR Not Detected (Not Detect.); Influenza A H1-2009 PCR Not Detected (Not Detect.); Influenza A H3 PCR Not Detected (Not Detect.); SARS-CoV-2 PCR Not Detected (Not Detect.)
== END 2025-07-15 13:02 | disposition home or self-care (01) | DRG 190 ==
LOC: HO.ED 14:14 → HO.EDOVER 17:36 → HO.S3 07-15 06:37
PROVIDERS: Physician Assistant Medical; Registered Nurse Emergency; Admitting Provider Nurse Practitioner Acute Care; Emergency Provider Emergency Medicine Emergency Medical Services; Visit Provider Nurse Practitioner Acute Care
DX: J44.1 Chronic obstructive pulmonary disease with (acute) exacerbation (principal); J96.01 Acute respiratory failure with hypoxia; F17.210 Nicotine dependence, cigarettes, uncomplicated; I10 Essential (primary) hypertension; E78.5 Hyperlipidemia, unspecified; Z20.822 Contact with and (suspected) exposure to COVID-19; Z71.6 Tobacco abuse counseling; Z79.51 Long term (current) use of inhaled steroids; Z79.899 Other long term (current) drug therapy
CPT/HCPCS: 36415; 71046; 80048; 80053; 82803; 83605; 83735; 84484; 85025; 85027; 85379; 85610; 87040; 87633; 87637; 93005; 94640; 99221; 99285; J0696; J1650; J2919; J3475

== ENCOUNTER → 2025-07-14 12:31 | Outpatient (BNV) | payer OTHER, SELFPAY | PROVIDERS: Emergency Provider Emergency Medicine Emergency Medical Services; Visit Provider Radiology Diagnostic Radiology | DX: J44.9 Chronic obstructive pulmonary disease, unspecified (principal) | CPT/HCPCS: 71046 ==

== ENCOUNTER → 2025-07-14 12:31 | Outpatient (BNV) | payer OTHER, SELFPAY | PROVIDERS: Admitting Provider Nurse Practitioner Acute Care; Emergency Provider Emergency Medicine Emergency Medical Services; Visit Provider Internal Medicine | DX: R06.02 Shortness of breath (principal) | CPT/HCPCS: 93010 ==

== ENCOUNTER → 2025-07-14 17:27 | Outpatient (BNV) | payer OTHER, SELFPAY | PROVIDERS: Admitting Provider Nurse Practitioner Acute Care; Emergency Provider Emergency Medicine Emergency Medical Services; Visit Provider Nurse Practitioner Acute Care | DX: J96.01 Acute respiratory failure with hypoxia (principal); J44.1 Chronic obstructive pulmonary disease with (acute) exacerbation; F17.210 Nicotine dependence, cigarettes, uncomplicated | CPT/HCPCS: 99239 ==